=== PATIENT | male | born 1950 | race Caucasian/White ===

== ENCOUNTER → 2016-12-19 | Outpatient (CLI) | payer MEDICARE ==
[2016-12-19 08:08] LABS: ABSOLUTE BASOPHILS # (AUTO) 0.1 10^3/uL (0.0-0.2); ABSOLUTE EOSINOPHILS # (AUTO) 0.3 10^3/uL (0.0-0.6); ABSOLUTE LYMPHOCYTES (AUTO) 2.5 10^3/uL (0.5-4.7); ABSOLUTE MONOCYTES (AUTO) 0.6 10^3/uL (0.1-1.4); BASOPHILS % (AUTO) 0.8 % (0-2); EOSINOPHILS % (AUTO) 4.5 % (0-6); HEMOGLOBIN 11.4 g/dL (13.5-17.0); HGB HCT DIFFERENCE 0.2; LYMPHOCYTES % (AUTO) 32.8 % (13-45); MEAN CORPUSCULAR HEMOGLOBIN 31.1 pg (27.0-33.4); MEAN CORPUSCULAR HGB CONC 33.4 g/dL (32.0-36.0); MEAN CORPUSCULAR VOLUME 93 fl (80-97); MONOCYTES % (AUTO) 8.1 % (3-13); RED BLOOD COUNT 3.65 10^6/uL (4.35-5.55); SEGMENTED NEUTROPHILS % (AUTO) 53.8 % (42-78); WHITE BLOOD COUNT 7.5 10^3/uL (4.0-10.5)
[2016-12-19 08:31] LABS: ALBUMIN 3.8 g/dL (3.5-5.0); ANION GAP 12 (5-19); BLOOD UREA NITROGEN 85 mg/dL (7-20); CALCIUM 9.5 mg/dL (8.4-10.2); CARBON DIOXIDE 21 mmol/L (22-30); CHLORIDE 103 mmol/L (98-107); GLUCOSE 243 mg/dL (75-110); PHOSPHORUS 5.6 mg/dL (2.5-4.5); SODIUM 136.2 mmol/L (137-145)
[2016-12-19 09:18] LABS: POTASSIUM 6.2 mmol/L (3.6-5.0)
[2016-12-20 07:19] LABS: VITAMIN D 25-HYDROXY 31.1 ng/mL (30.0-100.0)
[2016-12-20 11:40] LABS: CREATININE URINE 38.7 mg/dL (Not Estab.)
== END ==
LOC: OD 07:12
PROVIDERS: ATTEND Internal Medicine Nephrology
DX: N18.4 Chronic kidney disease, stage 4 (severe) (principal); D63.1 Anemia in chronic kidney disease; N25.81 Secondary hyperparathyroidism of renal origin; E55.9 Vitamin D deficiency, unspecified; E11.9 Type 2 diabetes mellitus without complications
CPT/HCPCS: 36415; 80048; 82040; 82306; 82570; 83970; 84100; 84156; 85025

== ENCOUNTER → 2016-12-21 | Outpatient (CLI) | payer MEDICARE | LOC: OD 07:13 | PROVIDERS: ATTEND Internal Medicine Nephrology | DX: E78.5 Hyperlipidemia, unspecified (principal); N18.4 Chronic kidney disease, stage 4 (severe) | CPT/HCPCS: 36415; 84132 ==

== ENCOUNTER → 2017-01-19 | Outpatient (CLI) | payer MEDICARE ==
[2017-01-19 08:38] LABS: ANION GAP 14 (5-19); BLOOD UREA NITROGEN 39 mg/dL (7-20); CALCIUM 9.6 mg/dL (8.4-10.2); CARBON DIOXIDE 21 mmol/L (22-30); CHLORIDE 108 mmol/L (98-107); CREATININE RESULT 2.38 mg/dL (0.52-1.25); GLUCOSE 121 mg/dL (75-110); PHOSPHORUS 4.6 mg/dL (2.5-4.5); POTASSIUM 5.1 mmol/L (3.6-5.0); SODIUM 142.6 mmol/L (137-145)
== END ==
LOC: OD 07:04
PROVIDERS: ATTEND Internal Medicine Nephrology
DX: N18.4 Chronic kidney disease, stage 4 (severe) (principal); E83.39 Other disorders of phosphorus metabolism
CPT/HCPCS: 36415; 80048; 84100

== ENCOUNTER → 2017-04-26 | Outpatient (CLI) | payer MEDICARE ==
[2017-04-26 09:46] LABS: ANION GAP 10 (5-19); BLOOD UREA NITROGEN 75 mg/dL (7-20); CALCIUM 9.3 mg/dL (8.4-10.2); CARBON DIOXIDE 19 mmol/L (22-30); CHLORIDE 112 mmol/L (98-107); CREATININE RESULT 2.87 mg/dL (0.52-1.25); GLUCOSE 152 mg/dL (75-110); PHOSPHORUS 5.3 mg/dL (2.5-4.5); POTASSIUM 5.1 mmol/L (3.6-5.0)
[2017-04-26 09:59] LABS: URINE CREATININE 36.8 mg/dL (22-328)
[2017-04-26 10:05] LABS: URINE PROTEIN 331.5 mg/dL (<12)
== END ==
LOC: OD 07:41
PROVIDERS: ATTEND Internal Medicine Nephrology
DX: N18.4 Chronic kidney disease, stage 4 (severe) (principal); R80.1 Persistent proteinuria, unspecified; E83.39 Other disorders of phosphorus metabolism
CPT/HCPCS: 36415; 80048; 82570; 84100; 84156

== ENCOUNTER → 2017-06-29 | Outpatient (CLI) | payer MEDICARE ==
[2017-06-29 08:23] LABS: ABSOLUTE BASOPHILS # (AUTO) 0.1 10^3/uL (0.0-0.2); ABSOLUTE EOSINOPHILS # (AUTO) 0.3 10^3/uL (0.0-0.6); ABSOLUTE LYMPHOCYTES (AUTO) 2.2 10^3/uL (0.5-4.7); ABSOLUTE MONOCYTES (AUTO) 0.6 10^3/uL (0.1-1.4); ABSOLUTE NEUT (AUTO) 4.1 10^3/uL (1.7-8.2); BASOPHILS % (AUTO) 0.8 % (0-2); EOSINOPHILS % (AUTO) 4.3 % (0-6); HEMATOCRIT 32.7 % (37.9-51.0); HEMOGLOBIN 10.6 g/dL (13.5-17.0); HGB HCT DIFFERENCE -0.9; LYMPHOCYTES % (AUTO) 30.5 % (13-45); MEAN CORPUSCULAR HEMOGLOBIN 30.4 pg (27.0-33.4); MEAN CORPUSCULAR HGB CONC 32.4 g/dL (32.0-36.0); MEAN CORPUSCULAR VOLUME 94 fl (80-97); MONOCYTES % (AUTO) 8.4 % (3-13); RED BLOOD COUNT 3.49 10^6/uL (4.35-5.55); RED CELL DISTRIBUTION WIDTH 14.1 % (11.5-14.0); WHITE BLOOD COUNT 7.2 10^3/uL (4.0-10.5)
[2017-06-29 08:28] LABS: APPEARANCE,URINE CLEAR; BILIRUBIN,URINE NEGATIVE (NEGATIVE); GLUCOSE, URINE 150 mg/dL (NEGATIVE); KETONES,URINE NEGATIVE (NEGATIVE); LEUKOCYTE ESTERASE,URINE NEGATIVE (NEGATIVE); NITRITE,URINE NEGATIVE (NEGATIVE); PROTEIN,URINE >=500 mg/dL (NEGATIVE); URINE SPECIFIC GRAVITY 1.011; UROBILINOGEN,URINE NEGATIVE mg/dL (<2.0)
[2017-06-29 08:51] LABS: ALBUMIN 3.7 g/dL (3.5-5.0); ANION GAP 12 (5-19); BLOOD UREA NITROGEN 64 mg/dL (7-20); CALCIUM 9.7 mg/dL (8.4-10.2); CARBON DIOXIDE 21 mmol/L (22-30); CHLORIDE 111 mmol/L (98-107); CREATININE RESULT 2.75 mg/dL (0.52-1.25); GLUCOSE 125 mg/dL (75-110); PHOSPHORUS 5.3 mg/dL (2.5-4.5); SODIUM 143.9 mmol/L (137-145)
[2017-06-29 09:29] LABS: URINE PROTEIN 757.1 mg/dL (<12)
[2017-06-30 07:09] LABS: VITAMIN D 25-HYDROXY 28.2 ng/mL (30.0-100.0)
== END ==
LOC: OD 07:15
PROVIDERS: ATTEND Internal Medicine Nephrology
DX: N18.4 Chronic kidney disease, stage 4 (severe) (principal); E11.21 Type 2 diabetes mellitus with diabetic nephropathy; E83.39 Other disorders of phosphorus metabolism
CPT/HCPCS: 36415; 80048; 81001; 82040; 82306; 82570; 83970; 84100; 84156; 85025

== ENCOUNTER 2017-09-26 10:17 | Emergency (ER) | payer OTHER, MEDICARE ==
[2017-09-26] MEDS ORDERED: DIPH/PERTUSS(ACELL)/TETANUS VAC/PF 0.5 ML SYR (>=10YO) IM ONE (11:34)
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
[2017-09-26 12:12] LABS: ABSOLUTE BASOPHILS # (AUTO) 0.1 10^3/uL (0.0-0.2); ABSOLUTE EOSINOPHILS # (AUTO) 0.4 10^3/uL (0.0-0.6); ABSOLUTE LYMPHOCYTES (AUTO) 2.3 10^3/uL (0.5-4.7); ABSOLUTE MONOCYTES (AUTO) 0.8 10^3/uL (0.1-1.4); BASOPHILS % (AUTO) 0.9 % (0-2); EOSINOPHILS % (AUTO) 3.3 % (0-6); HEMATOCRIT 34.2 % (37.9-51.0); HEMOGLOBIN 11.5 g/dL (13.5-17.0); HGB HCT DIFFERENCE 0.3; LYMPHOCYTES % (AUTO) 20.1 % (13-45); MEAN CORPUSCULAR HEMOGLOBIN 30.8 pg (27.0-33.4); MEAN CORPUSCULAR HGB CONC 33.6 g/dL (32.0-36.0); MEAN CORPUSCULAR VOLUME 92 fl (80-97); MONOCYTES % (AUTO) 7.2 % (3-13); RED BLOOD COUNT 3.73 10^6/uL (4.35-5.55); SEGMENTED NEUTROPHILS % (AUTO) 68.5 % (42-78); WHITE BLOOD COUNT 11.7 10^3/uL (4.0-10.5)
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
[2017-09-26 12:36] LABS: ALANINE AMINOTRANSFERASE 71 U/L (21-72); ALBUMIN 4.3 g/dL (3.5-5.0); ALKALINE PHOSPHATASE 109 U/L (38-126); ANION GAP 13 (5-19); ASPARTATE AMINO TRANSFERASE 44 U/L (17-59); BILIRUBIN,DIRECT 0.4 mg/dL (0.0-0.4); BILIRUBIN,TOTAL 0.5 mg/dL (0.2-1.3); BLOOD UREA NITROGEN 58 mg/dL (7-20); CALCIUM 9.5 mg/dL (8.4-10.2); CARBON DIOXIDE 22 mmol/L (22-30); CHLORIDE 109 mmol/L (98-107); CREATININE RESULT 3.18 mg/dL (0.52-1.25); GLUCOSE 103 mg/dL (75-110); POTASSIUM 4.7 mmol/L (3.6-5.0); SODIUM 143.9 mmol/L (137-145); TOTAL PROTEIN 7.7 g/dL (6.3-8.2)
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
[2017-09-26 14:50] VITALS: BP 152/86
== END 2017-09-26 14:51 | disposition home or self-care (01) ==
LOC: ER 10:17
DX: S16.1XXA Strain of muscle, fascia and tendon at neck level, initial encounter (principal); S80.11XA Contusion of right lower leg, initial encounter; M54.2 Cervicalgia; M79.604 Pain in right leg; V49.40XA Driver injured in collision with unspecified motor vehicles in traffic accident, initial encounter; I10 Essential (primary) hypertension; E11.9 Type 2 diabetes mellitus without complications; N28.9 Disorder of kidney and ureter, unspecified
CPT/HCPCS: 36415; 70450; 72125; 80053; 85025; 90471; 90715; 99284

== ENCOUNTER 2017-09-28 12:50 | Emergency (ER) | payer OTHER, MEDICARE ==
[2017-09-28 12:57] VITALS: BP 170/71
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
[2017-09-28] MEDS ORDERED: ACETAMINOPHEN 325 MG TABLET PO ONE (13:49)
[2017-09-28] MEDS ORDERED: CYCLOBENZAPRINE HCL 10 MG TABLET PO ONE (13:49)
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
== END 2017-09-28 15:19 | disposition home or self-care (01) ==
LOC: ER 12:50
DX: R68.84 Jaw pain (principal); R07.89 Other chest pain; V87.7XXA Person injured in collision between other specified motor vehicles (traffic), initial encounter
CPT/HCPCS: 70110; 71020; 99284

== ENCOUNTER → 2017-11-02 | Outpatient (CLI) | payer MEDICARE ==
[2017-11-02 09:22] LABS: ABSOLUTE BASOPHILS # (AUTO) 0.1 10^3/uL (0.0-0.2); ABSOLUTE EOSINOPHILS # (AUTO) 0.4 10^3/uL (0.0-0.6); ABSOLUTE LYMPHOCYTES (AUTO) 2.3 10^3/uL (0.5-4.7); ABSOLUTE MONOCYTES (AUTO) 0.8 10^3/uL (0.1-1.4); ABSOLUTE NEUT (AUTO) 4.8 10^3/uL (1.7-8.2); BASOPHILS % (AUTO) 1.2 % (0-2); EOSINOPHILS % (AUTO) 4.6 % (0-6); HEMATOCRIT 31.7 % (37.9-51.0); HEMOGLOBIN 10.6 g/dL (13.5-17.0); LYMPHOCYTES % (AUTO) 27.2 % (13-45); MEAN CORPUSCULAR HEMOGLOBIN 30.3 pg (27.0-33.4); MEAN CORPUSCULAR HGB CONC 33.4 g/dL (32.0-36.0); MEAN CORPUSCULAR VOLUME 91 fl (80-97); MONOCYTES % (AUTO) 9.4 % (3-13); PLATELET COUNT 261 10^3/uL (150-450); RED BLOOD COUNT 3.49 10^6/uL (4.35-5.55); RED CELL DISTRIBUTION WIDTH 14.1 % (11.5-14.0); SEGMENTED NEUTROPHILS % (AUTO) 57.6 % (42-78); TOTAL CELLS COUNTED % (AUTO) 100 %; WHITE BLOOD COUNT 8.3 10^3/uL (4.0-10.5)
[2017-11-02 09:40] LABS: ANION GAP 12 (5-19); BLOOD UREA NITROGEN 63 mg/dL (7-20); CALCIUM 9.4 mg/dL (8.4-10.2); CARBON DIOXIDE 21 mmol/L (22-30); CHLORIDE 107 mmol/L (98-107); GLUCOSE 207 mg/dL (75-110); PHOSPHORUS 7.5 mg/dL (2.5-4.5); POTASSIUM 4.9 mmol/L (3.6-5.0); SODIUM 140.2 mmol/L (137-145)
[2017-11-02 10:11] LABS: URINE CREATININE 64.4 mg/dL (22-328)
[2017-11-02 10:23] LABS: UR PRO/CREAT RATIO RESULT 8.1 mg/mg (0.0-0.2); URINE PROTEIN 522.6 mg/dL (<12)
== END ==
LOC: OD 08:43
PROVIDERS: ATTEND Internal Medicine Nephrology
DX: E11.21 Type 2 diabetes mellitus with diabetic nephropathy (principal); N18.4 Chronic kidney disease, stage 4 (severe); N25.81 Secondary hyperparathyroidism of renal origin
CPT/HCPCS: 36415; 80048; 82306; 82570; 83970; 84100; 84156; 85025

== ENCOUNTER → 2018-02-01 | Outpatient (CLI) | payer MEDICARE ==
[2018-02-01 08:21] LABS: ABSOLUTE BASOPHILS # (AUTO) 0.1 10^3/uL (0.0-0.2); ABSOLUTE EOSINOPHILS # (AUTO) 0.3 10^3/uL (0.0-0.6); ABSOLUTE LYMPHOCYTES (AUTO) 2.6 10^3/uL (0.5-4.7); ABSOLUTE MONOCYTES (AUTO) 0.6 10^3/uL (0.1-1.4); ABSOLUTE NEUT (AUTO) 4.7 10^3/uL (1.7-8.2); EOSINOPHILS % (AUTO) 3.6 % (0-6); LYMPHOCYTES % (AUTO) 30.9 % (13-45); MEAN CORPUSCULAR HEMOGLOBIN 30.3 pg (27.0-33.4); MEAN CORPUSCULAR HGB CONC 33.1 g/dL (32.0-36.0); MEAN CORPUSCULAR VOLUME 91 fl (80-97); MONOCYTES % (AUTO) 7.5 % (3-13); PLATELET COUNT 279 10^3/uL (150-450); RED BLOOD COUNT 3.62 10^6/uL (4.35-5.55); TOTAL CELLS COUNTED % (AUTO) 100 %; WHITE BLOOD COUNT 8.3 10^3/uL (4.0-10.5)
[2018-02-01 08:40] LABS: ALBUMIN 4.5 g/dL (3.5-5.0); ANION GAP 15 (5-19); BLOOD UREA NITROGEN 85 mg/dL (7-20); CALCIUM 10.5 mg/dL (8.4-10.2); CARBON DIOXIDE 17 mmol/L (22-30); CHLORIDE 115 mmol/L (98-107); GLUCOSE 153 mg/dL (75-110); IRON(TIBC) 84.9 ug/dL (49-181); PHOSPHORUS 5.6 mg/dL (2.5-4.5); POTASSIUM 5.6 mmol/L (3.6-5.0); SODIUM 146.7 mmol/L (137-145)
[2018-02-01 09:28] LABS: APPEARANCE,URINE CLEAR; BILIRUBIN,URINE NEGATIVE (NEGATIVE); COLOR,URINE STRAW; GLUCOSE, URINE 150 mg/dL (NEGATIVE); KETONES,URINE NEGATIVE (NEGATIVE); LEUKOCYTE ESTERASE,URINE NEGATIVE (NEGATIVE); NITRITE,URINE NEGATIVE (NEGATIVE); PROTEIN,URINE >=500 mg/dL (NEGATIVE); URINE SPECIFIC GRAVITY 1.013; UROBILINOGEN,URINE NEGATIVE mg/dL (<2.0)
[2018-02-01 09:42] LABS: URINE CREATININE 60.5 mg/dL (22-328)
[2018-02-01 09:48] LABS: UR PRO/CREAT RATIO RESULT 4.9 mg/mg (0.0-0.2); URINE PROTEIN 297.1 mg/dL (<12)
== END ==
LOC: OD 07:46
PROVIDERS: ATTEND Internal Medicine Nephrology
DX: N18.4 Chronic kidney disease, stage 4 (severe) (principal); E11.21 Type 2 diabetes mellitus with diabetic nephropathy; N25.81 Secondary hyperparathyroidism of renal origin; E55.9 Vitamin D deficiency, unspecified
CPT/HCPCS: 36415; 80048; 81001; 82040; 82306; 82570; 82728; 83540; 83550; 83970; 84100; 84156; 85025

== ENCOUNTER → 2018-02-05 | Outpatient (CLI) | payer MEDICARE | LOC: OD 07:19 | PROVIDERS: ATTEND Internal Medicine Nephrology | DX: E87.5 Hyperkalemia (principal) | CPT/HCPCS: 36415; 84132 ==

== ENCOUNTER 2018-05-01 00:18 | Emergency (ER) | payer MEDICARE ==
[2018-05-01 01:27] LABS: HEMATOCRIT 28.9 % (37.9-51.0); HEMOGLOBIN 9.8 g/dL (13.5-17.0); MEAN CORPUSCULAR HEMOGLOBIN 30.8 pg (27.0-33.4); MEAN CORPUSCULAR VOLUME 91 fl (80-97); PLATELET COUNT 280 10^3/uL (150-450); RED BLOOD COUNT 3.19 10^6/uL (4.35-5.55); RED CELL DISTRIBUTION WIDTH 14.1 % (11.5-14.0); WHITE BLOOD COUNT 9.8 10^3/uL (4.0-10.5)
[2018-05-01 01:59] LABS: ABSOLUTE LYMPHOCYTES# (MANUAL) 0.8 10^3/uL (0.5-4.7); ABSOLUTE MONOCYTES # (MANUAL) 0.5 10^3/uL (0.1-1.4); ABSOLUTE NEUTROPHILS# (MANUAL) 8.4 10^3/uL (1.7-8.2); BAND NEUTROPHILS % (MANUAL) 2 % (3-5); BASOPHILS % (MANUAL) 0 % (0-2); EOSINOPHILS % (MANUAL) 1 % (0-6); HYPOCHROMASIA 1+; LYMPHOCYTES % (MANUAL) 8 % (13-45); MONOCYTES % (MANUAL) 5 % (3-13); SEGMENTED NEUTROPHILS % (MAN) 84 % (42-78); TOTAL CELLS COUNTED 100; TOXIC GRANULATION 1+; TOXIC VACUOLATION PRESENT
[2018-05-01 02:00] LABS: PLATELET COMMENT ADEQUATE
[2018-05-01 02:01] LABS: ALANINE AMINOTRANSFERASE 181 U/L (21-72); ALBUMIN 3.1 g/dL (3.5-5.0); ALKALINE PHOSPHATASE 183 U/L (38-126); ASPARTATE AMINO TRANSFERASE 138 U/L (17-59); BILIRUBIN,DIRECT 0.4 mg/dL (0.0-0.4); BILIRUBIN,TOTAL 0.4 mg/dL (0.2-1.3); BLOOD UREA NITROGEN 116 mg/dL (7-20); CALCIUM 8.7 mg/dL (8.4-10.2); GLUCOSE 278 mg/dL (75-110); POTASSIUM 4.1 mmol/L (3.6-5.0); TOTAL PROTEIN 6.2 g/dL (6.3-8.2)
[2018-05-01 02:07] LABS: CARBON DIOXIDE 13 mmol/L (22-30); CHLORIDE 109 mmol/L (98-107); SODIUM 143.2 mmol/L (137-145)
[2018-05-01 02:18] LABS: ANION GAP 21 (5-19)
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
--- NOTE | 2018-05-01 03:20 | RADIOLOGY REPORT (SQ) ---
EXAM DESCRIPTION: XR CHEST 1 VIEW COMPLETED DATE/TME: 05/01/2018 00:48 CLINICAL HISTORY: shortness of breath COMPARISON: 09/28/2017 FINDINGS: Single frontal view of the chest. The cardiomediastinal silhouette has normal size and contour. No consolidation, pneumothorax, or pleural effusion. Right reverse shoulder arthroplasty. Leads overlie the chest. Elevation the right hemidiaphragm. Right-sided skin fold. Upper abdominal soft tissues are unremarkable. IMPRESSION: 1. No acute pulmonary process identified.
[2018-05-01 04:04] LABS: ARTERIAL BLOOD BASE EXCESS -8.3 mmol/L; ARTERIAL BLOOD HCO3 15.3 mmol/L (20-26); ARTERIAL BLOOD O2 SATURATION 97.8 % (94-98); ARTERIAL BLOOD PCO2 26.5 mmHg (35-45); ARTERIAL BLOOD PH 7.38 (7.35-7.45); ARTERIAL BLOOD PO2 104.6 mmHg (80-100); ARTERIAL BLOOD TOTAL CO2 16.1 mmol/L (23-27)
[2018-05-01 04:10] LABS: ARTERIAL BLOOD FIO2 RA
[2018-05-01 05:26] VITALS: BP 154/76
--- NOTE | 2018-05-01 10:01 | EKG REPORT ---
SEVERITY:- ABNORMAL ECG - SINUS RHYTHM PROBABLE LEFT ATRIAL ABNORMALITY LEFT VENTRICULAR HYPERTROPHY : Confirmed by: Tanya Del Toro MD 01-May-2018 09:59:20
== END 2018-05-01 05:26 | disposition left against medical advice (07) ==
LOC: ER 00:18
DX: N19 Unspecified kidney failure (principal); I10 Essential (primary) hypertension; E11.9 Type 2 diabetes mellitus without complications; E87.2 Acidosis; E87.3 Alkalosis; J40 Bronchitis, not specified as acute or chronic; R06.02 Shortness of breath; R05 Cough; Z53.29 Procedure and treatment not carried out because of patient's decision for other reasons
CPT/HCPCS: 36415; 71045; 80053; 82803; 83880; 84484; 85025; 93005; 93010; 99285

== ENCOUNTER 2018-05-06 15:29 | Emergency (ER) | payer MEDICARE ==
--- NOTE | 2018-05-06 16:26 | ER Document Report ---
ED Medical Screen (RME) - General Chief Complaint: Abnormal Lab Results Stated Complaint: FLANK PAIN Time Seen by Provider: 05/06/18 16:21 Mode of Arrival: Ambulatory Information source: Patient Notes: 68-year-old male with hypertension, hyperlipidemia, renal disease presents with complaint of "I just feel horrible. Patient states that he has had headache, nausea for approximately 1 week. He was seen in the emergency department recently where he was fine to have a creatinine great then 5. At that time patient left AGAINST MEDICAL ADVICE. He does follow with Dr. Maryann Ramirez executive vice president and chief financial officer. Patient currently denying chest pain, shortness of breath, abdominal pain. Patient's is currently in trauma 1 after a cardiac arrest. I have greeted and performed a rapid initial assessment of this patient. A comprehensive ED assessment and evaluation of the patient including analysis of labs and imaging ( if obtained) and completion of medical decision making will be conducted by an additional ED provider. PHYSICAL EXAMINATION: GENERAL: Well-appearing, well-nourished and in no acute distress. HEAD: Atraumatic, normocephalic. EYES: Pupils equal round extraocular movements intact, conjunctiva are normal. ENT: Nares patent NECK: Normal range of motion LUNGS: No respiratory distress Musculoskeletal: Normal range of motion NEUROLOGICAL: Normal speech, normal gait. PSYCH: Normal mood, normal affect. SKIN: Warm, Dry, normal turgor, no rashes or lesions noted. TRAVEL OUTSIDE OF THE [place] IN LAST 30 DAYS: No - Related Data Allergies/Adverse Reactions: No Known Allergies Allergy (Verified 05/06/18 16:18) Past Medical History - Social History Chew tobacco use (# tins/day): No Frequency of alcohol use: None Drug Abuse: None - Past Medical History Cardiac Medical History: Reports: Hx Hypercholesterolemia, Hx Hypertension Denies: Hx Coronary Artery Disease, Hx Heart Attack Pulmonary Medical History: Denies: Hx Asthma, Hx Bronchitis, Hx COPD, Hx Pneumonia Neurological Medical History: Denies: Hx Cerebrovascular Accident, Hx Seizures Endocrine Medical History: Reports: Hx Diabetes Mellitus Type 2 Renal/ Medical History: Denies: Hx Peritoneal Dialysis Musculoskeltal Medical History: Reports Hx Arthritis Past Surgical History: Reports: Hx Orthopedic Surgery - right shoulder - Immunizations Hx Diphtheria, Pertussis, Tetanus Vaccination: No Physical Exam - Vital signs Vitals: Temp Pulse Resp BP Pulse Ox 98.9 F 74 16 152/75 H 97 05/06/18 15:49 05/06/18 15:49 05/06/18 15:49 05/06/18 15:49 05/06/18 15:49 Course - Vital Signs Vital signs: Temp Pulse Resp BP Pulse Ox 98.9 F 74 16 152/75 H 97 05/06/18 15:49 05/06/18 15:49 05/06/18 15:49 05/06/18 15:49 05/06/18 15:49 Doctor's Discharge - Discharge Referrals: JOSE HALL MD [Primary Care Provider] - Follow up as needed
--- NOTE | 2018-05-06 17:04 | RADIOLOGY REPORT (SQ) ---
EXAM DESCRIPTION: CHEST 2 VIEWS COMPLETED DATE/TIME: 05/06/2018 4:48 pm REASON FOR STUDY: copd COMPARISON: 09/28/2017 EXAM PARAMETERS: NUMBER OF VIEWS: two views TECHNIQUE: Digital Frontal and Lateral radiographic views of the chest acquired. RADIATION DOSE: NA LIMITATIONS: none FINDINGS: LUNGS AND PLEURA: No opacities, masses or pneumothorax. No pleural effusion. MEDIASTINUM AND HILAR STRUCTURES: No masses or contour abnormalities. HEART AND VASCULAR STRUCTURES: Heart normal size. No evidence for failure. BONES: Right shoulder prosthesis. HARDWARE: None in the chest. OTHER: No other significant finding. IMPRESSION: NO ACUTE RADIOGRAPHIC FINDING IN THE CHEST. TECHNICAL DOCUMENTATION: JOB ID: [id number] [employer]- All Rights Reserved Reading location - IP/workstation name: [email or web address]
[2018-05-06 17:08] LABS: APPEARANCE,URINE CLEAR; BILIRUBIN,URINE NEGATIVE (NEGATIVE); COLOR,URINE YELLOW; GLUCOSE, URINE 150 mg/dL (NEGATIVE); KETONES,URINE NEGATIVE (NEGATIVE); LEUKOCYTE ESTERASE,URINE NEGATIVE (NEGATIVE); NITRITE,URINE NEGATIVE (NEGATIVE); PROTEIN,URINE >=500 mg/dL (NEGATIVE); URINE SPECIFIC GRAVITY 1.011; UROBILINOGEN,URINE NEGATIVE mg/dL (<2.0)
[2018-05-06 18:09] LABS: ABSOLUTE BASOPHILS # (AUTO) 0.1 10^3/uL (0.0-0.2); ABSOLUTE EOSINOPHILS # (AUTO) 0.2 10^3/uL (0.0-0.6); ABSOLUTE LYMPHOCYTES (AUTO) 3.5 10^3/uL (0.5-4.7); ABSOLUTE MONOCYTES (AUTO) 0.9 10^3/uL (0.1-1.4); ABSOLUTE NEUT (AUTO) 10.7 10^3/uL (1.7-8.2); BASOPHILS % (AUTO) 0.5 % (0-2); EOSINOPHILS % (AUTO) 1.5 % (0-6); HEMATOCRIT 31.3 % (37.9-51.0); HEMOGLOBIN 10.6 g/dL (13.5-17.0); LYMPHOCYTES % (AUTO) 22.7 % (13-45); MEAN CORPUSCULAR HEMOGLOBIN 30.4 pg (27.0-33.4); MEAN CORPUSCULAR HGB CONC 33.8 g/dL (32.0-36.0); MEAN CORPUSCULAR VOLUME 90 fl (80-97); PLATELET COUNT 510 10^3/uL (150-450); RED BLOOD COUNT 3.48 10^6/uL (4.35-5.55); SEGMENTED NEUTROPHILS % (AUTO) 69.3 % (42-78); TOTAL CELLS COUNTED % (AUTO) 100 %; WHITE BLOOD COUNT 15.5 10^3/uL (4.0-10.5)
[2018-05-06 18:22] LABS: ALANINE AMINOTRANSFERASE 135 U/L (21-72); ALBUMIN 3.7 g/dL (3.5-5.0); ALKALINE PHOSPHATASE 141 U/L (38-126); ANION GAP 18 (5-19); ASPARTATE AMINO TRANSFERASE 80 U/L (17-59); BILIRUBIN,DIRECT 0.5 mg/dL (0.0-0.4); BILIRUBIN,TOTAL 0.6 mg/dL (0.2-1.3); BLOOD UREA NITROGEN 88 mg/dL (7-20); CALCIUM 8.9 mg/dL (8.4-10.2); CARBON DIOXIDE 19 mmol/L (22-30); CHLORIDE 110 mmol/L (98-107); GLUCOSE 144 mg/dL (75-110); LIPASE 152.6 U/L (23-300); POTASSIUM 4.6 mmol/L (3.6-5.0); TOTAL PROTEIN 6.8 g/dL (6.3-8.2)
[2018-05-06 18:34] LABS: TROPONIN I 0.018 ng/mL
--- NOTE | 2018-05-06 19:17 | ER Document Report ---
ED General - General Chief Complaint: Abnormal Lab Results Stated Complaint: FLANK PAIN Time Seen by Provider: 05/06/18 16:21 Mode of Arrival: Ambulatory Notes: Patient is a 68-year-old male with a past medical history of non-insulin- dependent diabetes, hypertension, chronic kidney disease who presents after apparently receiving a call back from the emergency department regarding recently leaving AGAINST MEDICAL ADVICE with deteriorating renal function. The patient states that he feels "like crap". He states that this however is not new or different over the last several months. He states in general he feels quite fatigued and has little energy. Nothing seems to improve or worsen his symptoms. He has been taking all medications as directed. He states that he has been drinking plenty of fluids. He follows with a sports equipment repairer regarding his chronic kidney dysfunction has not seen them in at least 3 months. Nothing is otherwise new or different about his symptoms that prompted a return visit to the emergency department today TRAVEL OUTSIDE OF THE [place] IN LAST 30 DAYS: No - Related Data Allergies/Adverse Reactions: No Known Allergies Allergy (Verified 05/06/18 16:18) Past Medical History - General Information source: Patient - Social History Smoking Status: Never Smoker Chew tobacco use (# tins/day): No Frequency of alcohol use: None Drug Abuse: None Lives with: Spouse/Significant other Family History: Reviewed & Not Pertinent Patient has suicidal ideation: No Patient has homicidal ideation: No - Past Medical History Cardiac Medical History: Reports: Hx Hypercholesterolemia, Hx Hypertension Denies: Hx Coronary Artery Disease, Hx Heart Attack Pulmonary Medical History: Denies: Hx Asthma, Hx Bronchitis, Hx COPD, Hx Pneumonia Neurological Medical History: Denies: Hx Cerebrovascular Accident, Hx Seizures Endocrine Medical History: Reports: Hx Diabetes Mellitus Type 2 Renal/ Medical History: Denies: Hx Peritoneal Dialysis Musculoskeletal Medical History: Reports Hx Arthritis Past Surgical History: Reports: Hx Orthopedic Surgery - right shoulder - Immunizations Hx Diphtheria, Pertussis, Tetanus Vaccination: No Hx Pneumococcal Vaccination: 03/23/13 Review of Systems - Review of Systems Notes: Constitutional: Negative for fever. Positive for general fatigue HENT: Negative for sore throat. Eyes: Negative for visual changes. Cardiovascular: Negative for chest pain. Respiratory: Negative for shortness of breath. Gastrointestinal: Negative for abdominal pain, vomiting or diarrhea. Genitourinary: Negative for dysuria. Musculoskeletal: Negative for back pain. Skin: Negative for rash. Neurological: Negative for headaches, weakness or numbness. 10 point ROS negative except as marked above and in HPI. Physical Exam - Vital signs Vitals: Temp Pulse Resp BP Pulse Ox 98.9 F 74 16 152/75 H 97 05/06/18 15:49 05/06/18 15:49 05/06/18 15:49 05/06/18 15:49 05/06/18 15:49 Interpretation: Hypertensive Notes: PHYSICAL EXAMINATION: GENERAL: Somewhat chronically ill and emaciated in appearance but no acute distress HEAD: Atraumatic, normocephalic. EYES: Pupils equal round and reactive to light, extraocular movements intact, sclera anicteric, conjunctiva are normal. ENT: nares patent, oropharynx clear without exudates. Moist mucous membranes. NECK: Normal range of motion, supple without lymphadenopathy LUNGS: Breath sounds clear to auscultation bilaterally and equal. No wheezes rales or rhonchi. HEART: Regular rate and rhythm without murmurs ABDOMEN: Soft, nontender, normoactive bowel sounds. No guarding, no rebound. No masses appreciated. EXTREMITIES: Normal range of motion, no pitting or edema. No cyanosis. NEUROLOGICAL: No focal neurological deficits. Moves all extremities spontaneously and on command. PSYCH: Normal mood, normal affect. SKIN: Warm, Dry, normal turgor, no rashes or lesions noted. Course - Re-evaluation Re-evalutation: 05/06/18 19:12 Patient presents with requests for repeat lab assessment is apparently summary from the emergency department contacted him and requested that he come back to the emergency department for recheck. The patient states that he feels quite fatigued but has felt the same way for at least the past 4-5 months. I have expand the patient that this is likely secondary to his chronic kidney dysfunction with associated uremia. He has had progressive worsening of his uremia and kidney function has progressively declined over the last 4 years although is notably better today versus 5 days ago. His physical exam is nonfocal. Vitals show mild hypertension but are otherwise unremarkable. No hyperkalemia. I discussed this case with his sports equipment repairer Dr. Hall who plans to see him in the office at their earliest ability. At this time will discharge with return precautions and follow-up recommendations. Verbal discharge instructions given a the bedside and opportunity for questions given. Medication warnings reviewed. Patient is in agreement with this plan and has verbalized understanding of return precautions and the need for primary care follow-up in the next 24-72 hours. - Vital Signs Vital signs: Temp Pulse Resp BP Pulse Ox 98.8 F 82 18 151/77 H 98 05/06/18 19:58 05/06/18 19:58 05/06/18 19:58 05/06/18 19:58 05/06/18 19:58 - Laboratory Result Diagrams: 05/06/18 17:37 05/06/18 17:37 Laboratory results interpreted by me: 05/06/18 05/06/18 05/06/18 16:35 17:37 17:37 WBC 15.5 H RBC 3.48 L Hgb 10.6 L Hct 31.3 L Plt Count 510 H Absolute Neutrophils 10.7 H Sodium 147.0 H Chloride 110 H Carbon Dioxide 19 L BUN 88 H Creatinine 4.50 H Est GFR ( Amer) 16 L Est GFR (Non-Af Amer) 13 L Glucose 144 H Direct Bilirubin 0.5 H AST 80 H ALT 135 H Alkaline Phosphatase 141 H NT-Pro-B Natriuret Pep Urine Protein >=500 H Urine Glucose (UA) 150 H Urine Blood SMALL H 05/06/18 17:37 WBC RBC Hgb Hct Plt Count Absolute Neutrophils Sodium Chloride Carbon Dioxide BUN Creatinine Est GFR ( Amer) Est GFR (Non-Af Amer) Glucose Direct Bilirubin AST ALT Alkaline Phosphatase NT-Pro-B Natriuret Pep 2350 H Urine Protein Urine Glucose (UA) Urine Blood - Diagnostic Test Radiology reviewed: Image reviewed, Reports reviewed Radiology results interpreted by me: 05/07/18 04:53 Chest x-ray: No acute infiltrate or pneumothorax Discharge - Discharge Clinical Impression: Uremia Chronic kidney disease Qualifiers: Chronic kidney disease stage: unspecified stage Qualified Code(s): N18.9 - Chronic kidney disease, unspecified Fatigue Qualifiers: Fatigue type: unspecified Qualified Code(s): R53.83 - Other fatigue Condition: Good Disposition: HOME, SELF-CARE Additional Instructions: Please wait for Dr. Hall's office to contact you before you go get labs. They will contact you and inform you when you need to get lab draws in case there are additional laboratories that need to be drawn beyond what was sent today. They are also planning to set up an appointment for you at the earliest available appointment. You are feeling fatigued due to progressive deterioration of your kidney function. Please return to the emergency department if you have shortness of breath, chest pain, fever greater than 100.4F vomiting, chest pain, or any other symptoms that are worrisome to you. Referrals: JOSE HALL MD [Primary Care Provider] - Follow up as needed
[2018-05-06 19:59] VITALS: BP 151/77
== END 2018-05-06 19:59 | disposition home or self-care (01) ==
LOC: ER 15:29
DX: I12.9 Hypertensive chronic kidney disease with stage 1 through stage 4 chronic kidney disease, or unspecified chronic kidney disease (principal); N18.9 Chronic kidney disease, unspecified; R53.83 Other fatigue; E11.9 Type 2 diabetes mellitus without complications
CPT/HCPCS: 36415; 71046; 80053; 81001; 83690; 83880; 84484; 85025; 99284

== ENCOUNTER → 2018-05-08 | Outpatient (CLI) | payer MEDICARE ==
[2018-05-08 08:25] LABS: ABSOLUTE BASOPHILS # (AUTO) 0.1 10^3/uL (0.0-0.2); ABSOLUTE EOSINOPHILS # (AUTO) 0.2 10^3/uL (0.0-0.6); ABSOLUTE MONOCYTES (AUTO) 0.6 10^3/uL (0.1-1.4); ABSOLUTE NEUT (AUTO) 9.5 10^3/uL (1.7-8.2); BASOPHILS % (AUTO) 0.7 % (0-2); EOSINOPHILS % (AUTO) 1.4 % (0-6); HEMATOCRIT 27.3 % (37.9-51.0); HEMOGLOBIN 9.2 g/dL (13.5-17.0); LYMPHOCYTES % (AUTO) 15.9 % (13-45); MEAN CORPUSCULAR HEMOGLOBIN 30.5 pg (27.0-33.4); MEAN CORPUSCULAR HGB CONC 33.6 g/dL (32.0-36.0); MEAN CORPUSCULAR VOLUME 91 fl (80-97); MONOCYTES % (AUTO) 4.5 % (3-13); PLATELET COUNT 494 10^3/uL (150-450); RED CELL DISTRIBUTION WIDTH 13.9 % (11.5-14.0); SEGMENTED NEUTROPHILS % (AUTO) 77.5 % (42-78); TOTAL CELLS COUNTED % (AUTO) 100 %; WHITE BLOOD COUNT 12.3 10^3/uL (4.0-10.5)
[2018-05-08 08:41] LABS: APPEARANCE,URINE CLEAR; BILIRUBIN,URINE NEGATIVE (NEGATIVE); COLOR,URINE YELLOW; GLUCOSE, URINE 150 mg/dL (NEGATIVE); KETONES,URINE NEGATIVE (NEGATIVE); LEUKOCYTE ESTERASE,URINE NEGATIVE (NEGATIVE); NITRITE,URINE NEGATIVE (NEGATIVE); PROTEIN,URINE >=500 mg/dL (NEGATIVE); URINE SPECIFIC GRAVITY 1.013; UROBILINOGEN,URINE NEGATIVE mg/dL (<2.0)
[2018-05-08 08:48] LABS: URINE CREATININE 99.6 mg/dL (22-328)
[2018-05-08 08:51] LABS: ANION GAP 18 (5-19); BLOOD UREA NITROGEN 84 mg/dL (7-20); CALCIUM 8.7 mg/dL (8.4-10.2); CARBON DIOXIDE 18 mmol/L (22-30); CHLORIDE 111 mmol/L (98-107); GLUCOSE 308 mg/dL (75-110); PHOSPHORUS 8.4 mg/dL (2.5-4.5); POTASSIUM 4.4 mmol/L (3.6-5.0); SODIUM 147.1 mmol/L (137-145)
[2018-05-08 09:03] LABS: UR PRO/CREAT RATIO RESULT 3.3 mg/mg (0.0-0.2); URINE PROTEIN 327.9 mg/dL (<12)
== END ==
LOC: OD 07:11
PROVIDERS: ATTEND Internal Medicine Nephrology
DX: N18.4 Chronic kidney disease, stage 4 (severe) (principal); E55.9 Vitamin D deficiency, unspecified
CPT/HCPCS: 36415; 80048; 81001; 82306; 82570; 84100; 84156; 85025

== ENCOUNTER 2018-05-09 14:07 | Emergency (ER) | payer MEDICARE ==
[2018-05-09] MEDS ORDERED: NORMAL SALINE 500 ML IV ONE (15:05)
[2018-05-09 15:23] LABS: ABSOLUTE BASOPHILS # (AUTO) 0.1 10^3/uL (0.0-0.2); ABSOLUTE EOSINOPHILS # (AUTO) 0.2 10^3/uL (0.0-0.6); ABSOLUTE LYMPHOCYTES (AUTO) 2.7 10^3/uL (0.5-4.7); ABSOLUTE MONOCYTES (AUTO) 0.7 10^3/uL (0.1-1.4); ABSOLUTE NEUT (AUTO) 6.6 10^3/uL (1.7-8.2); BASOPHILS % (AUTO) 0.7 % (0-2); EOSINOPHILS % (AUTO) 2.2 % (0-6); HEMATOCRIT 25.9 % (37.9-51.0); HEMOGLOBIN 8.9 g/dL (13.5-17.0); LYMPHOCYTES % (AUTO) 26.6 % (13-45); MEAN CORPUSCULAR HEMOGLOBIN 30.5 pg (27.0-33.4); MEAN CORPUSCULAR HGB CONC 34.3 g/dL (32.0-36.0); MEAN CORPUSCULAR VOLUME 89 fl (80-97); MONOCYTES % (AUTO) 6.4 % (3-13); PLATELET COUNT 456 10^3/uL (150-450); RED BLOOD COUNT 2.92 10^6/uL (4.35-5.55); RED CELL DISTRIBUTION WIDTH 13.7 % (11.5-14.0); SEGMENTED NEUTROPHILS % (AUTO) 64.1 % (42-78); TOTAL CELLS COUNTED % (AUTO) 100 %; WHITE BLOOD COUNT 10.3 10^3/uL (4.0-10.5)
[2018-05-09 15:24] LABS: ALANINE AMINOTRANSFERASE 118 U/L (21-72); ALBUMIN 3.3 g/dL (3.5-5.0); ALKALINE PHOSPHATASE 107 U/L (38-126); ANION GAP 17 (5-19); ASPARTATE AMINO TRANSFERASE 65 U/L (17-59); BILIRUBIN,DIRECT 0.2 mg/dL (0.0-0.4); BILIRUBIN,TOTAL 0.2 mg/dL (0.2-1.3); BLOOD UREA NITROGEN 81 mg/dL (7-20); CALCIUM 8.3 mg/dL (8.4-10.2); CARBON DIOXIDE 19 mmol/L (22-30); CHLORIDE 109 mmol/L (98-107); GLUCOSE 116 mg/dL (75-110); POTASSIUM 3.7 mmol/L (3.6-5.0); SODIUM 145.4 mmol/L (137-145)
[2018-05-09] MEDS ORDERED: PROCHLORPERAZINE EDISYLATE INJ 10 MG/2 ML VIAL IV ONE (15:45)
[2018-05-09 16:15] LABS: APPEARANCE,URINE CLEAR; BILIRUBIN,URINE NEGATIVE (NEGATIVE); COLOR,URINE STRAW; GLUCOSE, URINE 150 mg/dL (NEGATIVE); KETONES,URINE NEGATIVE (NEGATIVE); LEUKOCYTE ESTERASE,URINE NEGATIVE (NEGATIVE); NITRITE,URINE NEGATIVE (NEGATIVE); PROTEIN,URINE 100 mg/dL (NEGATIVE); URINE SPECIFIC GRAVITY 1.012; UROBILINOGEN,URINE NEGATIVE mg/dL (<2.0)
--- NOTE | 2018-05-09 16:28 | RADIOLOGY REPORT (SQ) ---
EXAM DESCRIPTION: ACUTE ABDOMEN SERIES portable COMPLETED DATE/TIME: 05/09/2018 4:02 pm REASON FOR STUDY: nv COMPARISON: None. NUMBER OF VIEWS: Three views. TECHNIQUE: Frontal chest, supine abdomen and upright/decubitus abdomen radiographic images acquired. LIMITATIONS: None. FINDINGS: CHEST: Lungs clear of infiltrates. FREE AIR: None. No abnormal gas collections. BOWEL GAS PATTERN: Nonobstructive bowel pattern. Some increased fecal material noted vertically righ t colon. Air-fluid level is noted in the epigastric region, possible gastric or hiatus hernia. Othe r etiology including free air could be a consideration. No free air identified beneath the hemidiaph ragms. Consider CT for greater detail as clinically indicated. CALCIFICATIONS: 14 mm right upper quadrant oval calcification, concerning for gallstone. Consider ul trasound correlation. HARDWARE: Right shoulder arthroplasty SOFT TISSUES: No gross mass or suggestion of organomegaly. BONES: Scoliosis and arthritic change lumbar spine. OTHER: Linear calcification projected below the symphysis pubis, likely scrotal. IMPRESSION: Nonobstructive bowel pattern. Increased fecal material noted 14 mm right upper quadrant oval calcification, possible gallstone. Consider ultrasound correlation. Air-fluid level in the epigastric region. Consider gastric and hiatus hernia among other etiologies. Note above. TECHNICAL DOCUMENTATION: JOB ID: [id number] [employer]- All Rights Reserved Reading location - IP/workstation name: [email or web address]
[2018-05-09 17:29] VITALS: BP 163/86
[2018-05-09] MEDS ORDERED: ONDANSETRON ODT 4 MG TAB (6 TAB/ER DISP) PO PRN (17:40)
--- NOTE | 2018-05-09 17:44 | ER Document Report ---
ED General - General Chief Complaint: Weakness Stated Complaint: WEAKNESS Time Seen by Provider: 05/09/18 14:21 TRAVEL OUTSIDE OF THE [place] IN LAST 30 DAYS: No - HPI Patient complains to provider of: Generalized weakness nausea vomiting Notes: Patient has multiple visits now for similar episodes. Patient has been followed by Dr. Hall outpatient nephrology patient has known renal failure with uremia according to previous notes Dr. Hall has been encouraging patient in urgent patient to start dialysis however patient has delayed. Patient states upon my evaluation recently lost his she is due to be tomorrow. Patient otherwise states started having nausea vomiting the day after eating chicken. Patient denies any fevers chills diarrhea. patient resting comfortably upon my evaluation - Related Data Allergies/Adverse Reactions: No Known Allergies Allergy (Verified 05/06/18 16:18) Past Medical History - Social History Smoking Status: Never Smoker Chew tobacco use (# tins/day): No Frequency of alcohol use: None Drug Abuse: None Family History: Reviewed & Not Pertinent Patient has suicidal ideation: No Patient has homicidal ideation: No - Past Medical History Cardiac Medical History: Reports: Hx Hypercholesterolemia, Hx Hypertension Denies: Hx Coronary Artery Disease, Hx Heart Attack Pulmonary Medical History: Denies: Hx Asthma, Hx Bronchitis, Hx COPD, Hx Pneumonia Neurological Medical History: Denies: Hx Cerebrovascular Accident, Hx Seizures Endocrine Medical History: Reports: Hx Diabetes Mellitus Type 2 Renal/ Medical History: Denies: Hx Peritoneal Dialysis Musculoskeletal Medical History: Reports Hx Arthritis Past Surgical History: Reports: Hx Orthopedic Surgery - right shoulder - Immunizations Hx Diphtheria, Pertussis, Tetanus Vaccination: No Hx Pneumococcal Vaccination: 03/23/13 Review of Systems - Review of Systems Constitutional: Weakness EENT: No symptoms reported Cardiovascular: No symptoms reported Respiratory: No symptoms reported Gastrointestinal: Nausea, Vomiting Genitourinary: No symptoms reported Male Genitourinary: No symptoms reported Musculoskeletal: No symptoms reported Skin: No symptoms reported Hematologic/Lymphatic: No symptoms reported Neurological/Psychological: No symptoms reported -: Yes All other systems reviewed and negative Physical Exam - Vital signs Vitals: Resp 21 H 05/09/18 14:15 Interpretation: Normal - General General appearance: Appears well, Alert - HEENT Head: Normocephalic, Atraumatic Eyes: Normal Pupils: PERRL - Respiratory Respiratory status: No respiratory distress Chest status: Nontender Breath sounds: Normal Chest palpation: Normal - Cardiovascular Rhythm: Regular Heart sounds: Normal auscultation Murmur: No - Abdominal Inspection: Normal Distension: No distension Bowel sounds: Normal Tenderness: Nontender. No: Tender, McBurney's point, Gray's sign, Guarding, Rebound Organomegaly: No organomegaly - Back Back: Normal, Nontender - Extremities General upper extremity: Normal inspection, Nontender, Normal color, Normal ROM , Normal temperature General lower extremity: Normal inspection, Nontender, Normal color, Normal ROM , Normal temperature, Normal weight bearing. No: Aguila's sign - Neurological Neuro grossly intact: Yes Cognition: Normal Orientation: AAOx4 Mikayla Coma Scale Eye Opening: Spontaneous Mikayla Coma Scale Verbal: Oriented Mikayla Coma Scale Motor: Obeys Commands Mikayla Coma Scale Total: 15 Speech: Normal Motor strength normal: LUE, RUE, LLE, RLE Sensory: Normal - Psychological Associated symptoms: Normal affect, Normal mood - Skin Skin Temperature: Warm Skin Moisture: Dry Skin Color: Normal Course - Re-evaluation Re-evalutation: 05/09/18 23:02 Patient laboratory studies did not show a critical changes in the patient's uremia renal status patient has a chronically low but bicarb and chronic anemia. Did perform an acute abdominal series today showing a possible gallstone. Patient does have elevation of his liver function test however these have decreased over the past few days. Patient's abdominal examination otherwise benign. Patient has a right upper quadrant epigastric tenderness. It asked patient if you have further like to evaluate his gallbladder because a gallstone however patient declines at this time. Patient's abdomen again soft nontender no signs of surgical pathology bowel obstruction or any other worrisome etiology at this time for the patient's nausea vomiting. Patient's nausea has improved medication given here in the ER. Patient's case discussed with Dr. Hall recommended that the patient be admitted if he continued to have symptoms however states that the patient has been offered admission multiple times and he has declined each time. Did broach the subject with the patient offering admission again however patient states that this time your to be discharged home patient states understanding of his condition states understanding that there has not been much change in his laboratory values were more likely the uremia underlying renal failure is causing a lot of symptoms. Patient states understanding and again request to be discharged home - Vital Signs Vital signs: Temp Pulse Resp BP Pulse Ox 98.7 F 14 163/86 H 99 05/09/18 14:43 05/09/18 17:11 05/09/18 17:11 05/09/18 17:11 - Laboratory Result Diagrams: 05/09/18 14:21 05/09/18 14:21 Laboratory results interpreted by me: 05/09/18 05/09/18 05/09/18 14:21 14:21 15:40 RBC 2.92 L Hgb 8.9 L Hct 25.9 L Plt Count 456 H Sodium 145.4 H Chloride 109 H Carbon Dioxide 19 L BUN 81 H Creatinine 4.20 H Est GFR ( Amer) 17 L Est GFR (Non-Af Amer) 14 L Glucose 116 H Calcium 8.3 L AST 65 H ALT 118 H Total Protein 6.0 L Albumin 3.3 L Urine Protein 100 H Urine Glucose (UA) 150 H Urine Blood SMALL H Discharge - Discharge Clinical Impression: Uremia, Possible gallstone in gallbladder Fatigue Qualifiers: Fatigue type: unspecified Qualified Code(s): R53.83 - Other fatigue Chronic kidney disease Qualifiers: Chronic kidney disease stage: unspecified stage Qualified Code(s): N18.9 - Chronic kidney disease, unspecified Condition: Good Disposition: HOME, SELF-CARE Instructions: Weakness ([facility]) Additional Instructions: Your laboratory studies today do not show any acute abnormalities. You still have elevated renal function showing renal failure I did discuss your case with your information technology consultant Dr. Hall states that if you are still feeling bad she can be admitted to the hospital however if you feel like going home you can be discharged to follow-up after next appointment. At this time he states an understanding and wished to be discharged at this time. X-ray of her abdomen shows a possible gallstone. Your abdomen soft nontender I would recommend eating a bland diet for the next 2-3 days nothing fatty nothing greasy nothing fried. He may take the Zofran as provided for any nausea or vomiting. Return to ER immediately if her symptoms worsen follow-up with Dr. Hall Referrals: JOSE HALL MD [Primary Care Provider] - Follow up as needed
--- NOTE | 2018-05-09 21:56 | EKG REPORT ---
SEVERITY:- ABNORMAL ECG - SINUS RHYTHM PROBABLE LEFT ATRIAL ABNORMALITY LEFT VENTRICULAR HYPERTROPHY NONSPECIFIC T ABNORMALITIES, INFERIOR LEADS BORDERLINE PROLONGED QT INTERVAL : Confirmed by: Lisbet Mcgee 09-May-2018 21:55:43
== END 2018-05-09 17:55 | disposition home or self-care (01) ==
LOC: ER 14:07
DX: N19 Unspecified kidney failure (principal); N18.9 Chronic kidney disease, unspecified; R53.83 Other fatigue; R53.1 Weakness; R11.2 Nausea with vomiting, unspecified; E78.00 Pure hypercholesterolemia, unspecified; I12.9 Hypertensive chronic kidney disease with stage 1 through stage 4 chronic kidney disease, or unspecified chronic kidney disease; E11.9 Type 2 diabetes mellitus without complications
CPT/HCPCS: 93005; 99285; 96361; 96374; 36415; 83690; 85025; 80053; 81001; 84484; 74022; 93010; J0780; J7040

== ENCOUNTER → 2018-05-14 | Outpatient (CLI) | payer MEDICARE ==
[2018-05-14 08:14] LABS: ABSOLUTE BASOPHILS # (AUTO) 0.1 10^3/uL (0.0-0.2); ABSOLUTE EOSINOPHILS # (AUTO) 0.2 10^3/uL (0.0-0.6); ABSOLUTE MONOCYTES (AUTO) 0.6 10^3/uL (0.1-1.4); ABSOLUTE NEUT (AUTO) 6.7 10^3/uL (1.7-8.2); BASOPHILS % (AUTO) 0.8 % (0-2); EOSINOPHILS % (AUTO) 1.9 % (0-6); HEMATOCRIT 26.2 % (37.9-51.0); HEMOGLOBIN 8.8 g/dL (13.5-17.0); LYMPHOCYTES % (AUTO) 20.9 % (13-45); MEAN CORPUSCULAR HEMOGLOBIN 30.3 pg (27.0-33.4); MEAN CORPUSCULAR HGB CONC 33.7 g/dL (32.0-36.0); MEAN CORPUSCULAR VOLUME 90 fl (80-97); MONOCYTES % (AUTO) 6.6 % (3-13); PLATELET COUNT 352 10^3/uL (150-450); RED BLOOD COUNT 2.91 10^6/uL (4.35-5.55); RED CELL DISTRIBUTION WIDTH 14.2 % (11.5-14.0); SEGMENTED NEUTROPHILS % (AUTO) 69.8 % (42-78); TOTAL CELLS COUNTED % (AUTO) 100 %; WHITE BLOOD COUNT 9.5 10^3/uL (4.0-10.5)
[2018-05-14 08:42] LABS: ANION GAP 13 (5-19); BLOOD UREA NITROGEN 57 mg/dL (7-20); CARBON DIOXIDE 22 mmol/L (22-30); CHLORIDE 110 mmol/L (98-107); GLUCOSE 143 mg/dL (75-110); POTASSIUM 4.3 mmol/L (3.6-5.0); SODIUM 144.6 mmol/L (137-145)
== END ==
LOC: OD 07:12
PROVIDERS: ATTEND Internal Medicine Nephrology
DX: N18.5 Chronic kidney disease, stage 5 (principal); N18.9 Chronic kidney disease, unspecified
CPT/HCPCS: 36415; 80048; 85025

== ENCOUNTER → 2018-07-23 | Outpatient (CLI) | payer MEDICARE ==
[2018-07-23 07:45] LABS: ABSOLUTE BASOPHILS # (AUTO) 0.1 10^3/uL (0.0-0.2); ABSOLUTE EOSINOPHILS # (AUTO) 0.5 10^3/uL (0.0-0.6); ABSOLUTE LYMPHOCYTES (AUTO) 2.8 10^3/uL (0.5-4.7); ABSOLUTE MONOCYTES (AUTO) 0.9 10^3/uL (0.1-1.4); ABSOLUTE NEUT (AUTO) 5.7 10^3/uL (1.7-8.2); EOSINOPHILS % (AUTO) 4.9 % (0-6); HEMOGLOBIN 10.9 g/dL (13.5-17.0); LYMPHOCYTES % (AUTO) 28.4 % (13-45); MEAN CORPUSCULAR HEMOGLOBIN 28.9 pg (27.0-33.4); MEAN CORPUSCULAR HGB CONC 32.9 g/dL (32.0-36.0); MEAN CORPUSCULAR VOLUME 88 fl (80-97); MONOCYTES % (AUTO) 8.8 % (3-13); PLATELET COUNT 268 10^3/uL (150-450); RED BLOOD COUNT 3.76 10^6/uL (4.35-5.55); RED CELL DISTRIBUTION WIDTH 16.3 % (11.5-14.0); SEGMENTED NEUTROPHILS % (AUTO) 56.9 % (42-78); TOTAL CELLS COUNTED % (AUTO) 100 %; WHITE BLOOD COUNT 9.9 10^3/uL (4.0-10.5)
[2018-07-23 08:10] LABS: ANION GAP 11 (5-19); BLOOD UREA NITROGEN 65 mg/dL (7-20); CALCIUM 9.6 mg/dL (8.4-10.2); CARBON DIOXIDE 26 mmol/L (22-30); CHLORIDE 105 mmol/L (98-107); GLUCOSE 146 mg/dL (75-110); IRON(TIBC) 64.9 ug/dL (49-181); PHOSPHORUS 5.7 mg/dL (2.5-4.5); POTASSIUM 5.1 mmol/L (3.6-5.0); SODIUM 141.6 mmol/L (137-145)
== END ==
LOC: OD 07:15
PROVIDERS: ATTEND Internal Medicine Nephrology
DX: N18.4 Chronic kidney disease, stage 4 (severe) (principal); D63.1 Anemia in chronic kidney disease; N25.81 Secondary hyperparathyroidism of renal origin; E11.21 Type 2 diabetes mellitus with diabetic nephropathy
CPT/HCPCS: 36415; 80048; 82728; 83540; 83550; 83970; 84100; 85025

== ENCOUNTER → 2018-08-30 | Outpatient (CLI) | payer MEDICARE ==
[2018-08-30 11:12] LABS: APPEARANCE,URINE CLEAR; BILIRUBIN,URINE NEGATIVE (NEGATIVE); COLOR,URINE STRAW; GLUCOSE, URINE >=500 mg/dL (NEGATIVE); KETONES,URINE NEGATIVE (NEGATIVE); LEUKOCYTE ESTERASE,URINE NEGATIVE (NEGATIVE); NITRITE,URINE NEGATIVE (NEGATIVE); PROTEIN,URINE 100 mg/dL (NEGATIVE); UROBILINOGEN,URINE NEGATIVE mg/dL (<2.0)
[2018-08-30 11:25] LABS: UR PRO/CREAT RATIO RESULT 3.8 mg/mg (0.0-0.2); URINE CREATININE 51.2 mg/dL (22-328); URINE PROTEIN 194.8 mg/dL (<12)
== END ==
LOC: OD 10:01
PROVIDERS: ATTEND Internal Medicine Nephrology
DX: N18.4 Chronic kidney disease, stage 4 (severe) (principal); E55.9 Vitamin D deficiency, unspecified; E83.52 Hypercalcemia; E83.39 Other disorders of phosphorus metabolism
CPT/HCPCS: 36415; 81001; 82306; 82570; 84100; 84156

== ENCOUNTER 2019-01-24 09:31 | Emergency (ER) | payer MEDICARE ==
--- NOTE | 2019-01-24 09:50 | ER Document Report ---
ED Medical Screen (RME) - General Chief Complaint: Abnormal Lab Results Stated Complaint: ABDORMIAL LABS Time Seen by Provider: 01/24/19 09:47 Primary Care Provider: JOSE HALL MD [Primary Care Provider] - Follow up as needed Mode of Arrival: Ambulatory Information source: Patient Notes: Patient is a 68-year-old male who presents to the emergency department after having labs drawn this morning in which he states his doctor's office called him and told him to come to the ED as they were abnormal. Patient reports he believes his calcium was elevated. Patient has no symptoms, states he feels fine. Patient does have a history of chronic kidney disease but is not on dialysis. Reviewing patient's records, patient has hypercalcemia and elevated creatinine, see outpatient labs in EMR. Exam: Patient alert, oriented, appears well. Lung sounds clear to auscultation bilaterally. I have greeted and performed a rapid initial assessment of this patient. A comprehensive ED assessment and evaluation of the patient, analysis of test results and completion of the medical decision making process will be conducted by additional ED providers. Dictation of this chart was performed using voice recognition software; therefore, there may be some unintended grammatical errors. TRAVEL OUTSIDE OF THE [place] IN LAST 30 DAYS: No - Related Data Allergies/Adverse Reactions: No Known Allergies Allergy (Verified 01/24/19 09:32) Past Medical History - Past Medical History Cardiac Medical History: Reports: Hx Hypercholesterolemia, Hx Hypertension Denies: Hx Coronary Artery Disease, Hx Heart Attack Pulmonary Medical History: Denies: Hx Asthma, Hx Bronchitis, Hx COPD, Hx Pneumonia Neurological Medical History: Denies: Hx Cerebrovascular Accident, Hx Seizures Endocrine Medical History: Reports: Hx Diabetes Mellitus Type 2 Renal/ Medical History: Denies: Hx Peritoneal Dialysis Musculoskeltal Medical History: Reports Hx Arthritis Past Surgical History: Reports: Hx Orthopedic Surgery - right shoulder - Immunizations Hx Diphtheria, Pertussis, Tetanus Vaccination: No Physical Exam - Vital signs Vitals: Temp Pulse Resp BP Pulse Ox 98.1 F 68 14 172/77 H 100 01/24/19 09:40 01/24/19 09:40 01/24/19 09:40 01/24/19 09:40 01/24/19 09:40 Course - Vital Signs Vital signs: Temp Pulse Resp BP Pulse Ox 98.1 F 68 14 172/77 H 100 01/24/19 09:40 01/24/19 09:40 01/24/19 09:40 01/24/19 09:40 01/24/19 09:40 Doctor's Discharge - Discharge Referrals: JOSE HALL MD [Primary Care Provider] - Follow up as needed
[2019-01-24 10:03] LABS: ABSOLUTE BASOPHILS # (AUTO) 0.1 10^3/uL (0.0-0.2); ABSOLUTE EOSINOPHILS # (AUTO) 0.3 10^3/uL (0.0-0.6); ABSOLUTE LYMPHOCYTES (AUTO) 2.5 10^3/uL (0.5-4.7); ABSOLUTE MONOCYTES (AUTO) 0.7 10^3/uL (0.1-1.4); ABSOLUTE NEUT (AUTO) 4.4 10^3/uL (1.7-8.2); BASOPHILS % (AUTO) 0.9 % (0-2); EOSINOPHILS % (AUTO) 3.8 % (0-6); HEMATOCRIT 28.3 % (37.9-51.0); HEMOGLOBIN 9.7 g/dL (13.5-17.0); LYMPHOCYTES % (AUTO) 30.8 % (13-45); MEAN CORPUSCULAR HEMOGLOBIN 31.5 pg (27.0-33.4); MEAN CORPUSCULAR HGB CONC 34.1 g/dL (32.0-36.0); MEAN CORPUSCULAR VOLUME 92 fl (80-97); PLATELET COUNT 219 10^3/uL (150-450); RED BLOOD COUNT 3.07 10^6/uL (4.35-5.55); RED CELL DISTRIBUTION WIDTH 14.1 % (11.5-14.0); SEGMENTED NEUTROPHILS % (AUTO) 55.5 % (42-78); TOTAL CELLS COUNTED % (AUTO) 100 %
[2019-01-24 10:22] LABS: ALANINE AMINOTRANSFERASE 66 U/L (21-72); ALBUMIN 4.2 g/dL (3.5-5.0); ALKALINE PHOSPHATASE 57 U/L (38-126); ANION GAP 14 (5-19); ASPARTATE AMINO TRANSFERASE 41 U/L (17-59); BILIRUBIN,DIRECT 0.3 mg/dL (0.0-0.4); BILIRUBIN,TOTAL 0.3 mg/dL (0.2-1.3); BLOOD UREA NITROGEN 77 mg/dL (7-20); CALCIUM 11.4 mg/dL (8.4-10.2); CARBON DIOXIDE 21 mmol/L (22-30); CHLORIDE 108 mmol/L (98-107); GLUCOSE 219 mg/dL (75-110); SODIUM 142.7 mmol/L (137-145); TOTAL PROTEIN 7.2 g/dL (6.3-8.2)
[2019-01-24] MEDS ORDERED: NORMAL SALINE 1000 ML 1,000 ML IV ONE (11:27)
--- NOTE | 2019-01-24 13:03 | ER Document Report ---
Doctor's Note Notes: I personally and independently obtained patient history and examined the patient in conjunction with the APC and agree with the assessment, treatment plan and disposition of the patient as recorded by the APC, and have reviewed the APC's note. HISTORY OF PRESENT ILLNESS: Patient is a 68-year-old male with chronic kidney disease stage IV that presents to the emergency department for chief complaint of hypercalcemia on outpatient blood work. Patient denies any complaints such as confusion, muscle aches or pains. ROS: Constitutional: Negative for fever. Cardiovascular: Negative for chest pain. Respiratory: Negative for shortness of breath. Gastrointestinal: Negative for vomiting or abdominal pain Musculoskeletal: Negative for arm, leg or back pain Skin: Negative for rash. Neurological: Negative for weakness or numbness. Other than noted above, the 12 point review of systems was reviewed with the patient and were negative, all pertinent findings are included in the HPI. PHYSICAL EXAMINATION: Vital signs reviewed, nursing noted reviewed. GENERAL: Elderly male, no acute distress HEAD: Atraumatic, normocephalic. EYES: Eyes appear normal, conjunctiva are normal. ENT: nares patent, oropharynx clear without exudates. Mildly dry mucous membranes NECK: Normal range of motion, supple without lymphadenopathy LUNGS: Breath sounds clear to auscultation bilaterally and equal. No wheezes rales or rhonchi. HEART: Regular rate and rhythm without murmurs ABDOMEN: Soft, nontender, normoactive bowel sounds. No rebound, guarding, or rigidity. No masses appreciated. EXTREMITIES: Nontender, good range of motion, no pitting or edema. NEUROLOGICAL: No focal neurological deficits. Moves all extremities spontaneously Motor and sensory grossly intact on exam. PSYCH: Normal mood, normal affect. SKIN: Warm, Dry, normal turgor, no rashes or lesions noted on exposed skin MEDICAL DECISION MAKING: Patient seen and examined, vital signs reviewed, patient's blood work was reviewed, he had a hypercalcemia on his blood work today, was improved from earlier, case was discussed and consulted with the patient's hard hat diver, Dr. Hill, who recommended IV fluids and repeat blood work, and if improving, patient can be discharged home, patient was agreeable to this plan of care. Please review detail APC documentation. *Note is created using voice recognition software and may contain spelling, syntax or grammatical errors.
[2019-01-24 13:28] LABS: ALANINE AMINOTRANSFERASE 61 U/L (21-72); ALBUMIN 3.7 g/dL (3.5-5.0); ALKALINE PHOSPHATASE 52 U/L (38-126); ANION GAP 8 (5-19); ASPARTATE AMINO TRANSFERASE 32 U/L (17-59); BILIRUBIN,DIRECT 0.3 mg/dL (0.0-0.4); BILIRUBIN,TOTAL 0.3 mg/dL (0.2-1.3); BLOOD UREA NITROGEN 76 mg/dL (7-20); CALCIUM 10.9 mg/dL (8.4-10.2); CARBON DIOXIDE 21 mmol/L (22-30); CHLORIDE 114 mmol/L (98-107); GLUCOSE 142 mg/dL (75-110); POTASSIUM 4.7 mmol/L (3.6-5.0); SODIUM 143.1 mmol/L (137-145); TOTAL PROTEIN 6.4 g/dL (6.3-8.2)
[2019-01-24 14:39] VITALS: BP 139/84
--- NOTE | 2019-01-24 15:19 | ER Document Report ---
ED General - General Chief Complaint: Abnormal Lab Results Stated Complaint: ABDORMIAL LABS Time Seen by Provider: 01/24/19 09:47 Primary Care Provider: JOSE HALL MD [Primary Care Provider] - Follow up as needed Mode of Arrival: Ambulatory Information source: Patient Notes: Patient is a 68-year-old male who comes to the emergency room stating that his doctor Dr. Hall nephrology sent him here because he had abnormal labs this morning. Patient is alert not he does not not know why he is here. He states he feels well he is eating well he has no complaints. Patient denies any chest pain,, shortness of breath. He denies any cough congestion or runny nose. Patient also states that he is urinating well and has no difficulty with starting his stream or maintaining the stream. TRAVEL OUTSIDE OF THE [place] IN LAST 30 DAYS: No - HPI Onset: This morning Onset/Duration: Gradual Quality of pain: No pain Pain Level: Denies Associated symptoms: None Exacerbated by: Denies Relieved by: Denies Similar symptoms previously: No Recently seen / treated by doctor: No - Related Data Allergies/Adverse Reactions: No Known Allergies Allergy (Verified 01/24/19 09:32) Past Medical History - General Information source: Dr. Macias - Social History Smoking Status: Former Smoker Cigarette use (# per day): No Chew tobacco use (# tins/day): No Smoking Education Provided: No Frequency of alcohol use: None Drug Abuse: None Lives with: Alone Family History: Reviewed & Not Pertinent Patient has suicidal ideation: No Patient has homicidal ideation: No - Past Medical History Cardiac Medical History: Reports: Hx Hypercholesterolemia, Hx Hypertension Denies: Hx Coronary Artery Disease, Hx Heart Attack Pulmonary Medical History: Denies: Hx Asthma, Hx Bronchitis, Hx COPD, Hx Pneumonia Neurological Medical History: Denies: Hx Cerebrovascular Accident, Hx Seizures Endocrine Medical History: Reports: Hx Diabetes Mellitus Type 2 Renal/ Medical History: Denies: Hx Peritoneal Dialysis Musculoskeletal Medical History: Reports Hx Arthritis Past Surgical History: Reports: Hx Orthopedic Surgery - right shoulder - Immunizations Hx Diphtheria, Pertussis, Tetanus Vaccination: No Hx Pneumococcal Vaccination: 03/23/13 Review of Systems - Review of Systems Constitutional: No symptoms reported EENT: No symptoms reported Cardiovascular: No symptoms reported Respiratory: No symptoms reported Gastrointestinal: No symptoms reported Genitourinary: No symptoms reported Male Genitourinary: No symptoms reported Musculoskeletal: No symptoms reported Skin: No symptoms reported Hematologic/Lymphatic: No symptoms reported Neurological/Psychological: No symptoms reported -: Yes All other systems reviewed and negative Physical Exam - Vital signs Vitals: Temp Pulse Resp BP Pulse Ox 98.1 F 68 14 172/77 H 100 01/24/19 09:40 01/24/19 09:40 01/24/19 09:40 01/24/19 09:40 01/24/19 09:40 Interpretation: Hypertensive - Notes Notes: PHYSICAL EXAMINATION: GENERAL: Patient is a frail-appearing 68-year-old male who is in no apparent distress on physical exam today. HEAD: Atraumatic, normocephalic. EYES: Pupils equal round and reactive to light, extraocular movements intact, sclera anicteric, conjunctiva are normal. ENT: Nares patent, oropharynx clear without exudates. Dry mucous membranes. NECK: Normal range of motion, supple without lymphadenopathy LUNGS: Breath sounds clear to auscultation bilaterally and equal. No wheezes rales or rhonchi. HEART: Regular rate and rhythm without murmurs ABDOMEN: Soft, nontender, nondistended abdomen. No guarding, no rebound. No ma sses appreciated. Musculoskeletal: Normal range of motion, no pitting or edema. No cyanosis. NEUROLOGICAL: Normal speech, normal gait. Normal sensory, motor exams PSYCH: Normal mood, normal affect. SKIN: Warm, Dry, normal turgor, no rashes or lesions noted. Course - Re-evaluation Re-evalutation: 01/25/19 08:[address] Hall's office and discussed the case with her personally. She knows the patient and states that he has not been to our office in several months and today was a follow-up lab draw for him outpatient. She received the labs and noticed that his calcium was 12.4 and send him to the ER for evalu ation. After evaluation she informed me that we could give a liter of fluids even though his BUN and creatinine were 79 and 5. She states she is end-stage renal failure and is one step closer to dialysis. She states that he is in denial but if we can give a liter of fluids and see a down trend his calcium we can discharge him home. Patient received a liter of fluids and a repeat draw of his chemistries which showed that his calcium was downward trending and came back at 10.8. With this in him feeling well we will discharge him home with the advice to increase fluids somewhat and he has an appointment to follow-up with her this week. Patient had no symptomatology on arrival and left feeling even better. - Vital Signs Vital signs: Temp Pulse Resp BP Pulse Ox 97.6 F 74 14 139/84 H 100 01/24/19 14:39 01/24/19 14:33 01/24/19 09:40 01/24/19 14:33 01/24/19 14:33 - Laboratory Result Diagrams: 01/24/19 09:53 01/24/19 12:58 Laboratory results interpreted by me: 01/24/19 01/24/19 01/24/19 09:53 09:53 12:58 RBC 3.07 L Hgb 9.7 L Hct 28.3 L RDW 14.1 H Chloride 108 H 114 H Carbon Dioxide 21 L 21 L BUN 77 H 76 H Creatinine 4.95 H 4.76 H Est GFR ( Amer) 14 L 15 L Est GFR (Non-Af Amer) 12 L 12 L Glucose 219 H 142 H Calcium 11.4 H 10.9 H Discharge - Discharge Clinical Impression: Hypercalcemia, Chronic renal failure, stage 4 (severe) Condition: Good Disposition: HOME, SELF-CARE Instructions: Kidney Failure ([facility]) Additional Instructions: At this time we have talked to Dr. Hall and she wants to see you sometime this week she will contact her office first thing tomorrow to see if they want to see before the eighth. Increase your fluids mostly water at this point orally as long as you are urinating. If you are not urinating you need to come back sooner to the ER. Referrals: JOSE HALL MD [Primary Care Provider] - Follow up as needed
== END 2019-01-24 15:28 | disposition home or self-care (01) ==
LOC: ER 09:31
DX: E83.52 Hypercalcemia (principal); I12.9 Hypertensive chronic kidney disease with stage 1 through stage 4 chronic kidney disease, or unspecified chronic kidney disease; N18.4 Chronic kidney disease, stage 4 (severe); E11.22 Type 2 diabetes mellitus with diabetic chronic kidney disease; Z87.891 Personal history of nicotine dependence
CPT/HCPCS: 99283; 96360; 36415; 85025; 80053; J7030; 80048; 83540; 83550; 83970

== ENCOUNTER → 2019-01-24 | Outpatient (CLI) | payer MEDICARE ==
[2019-01-24 08:00] LABS: IRON(TIBC) 72.5 ug/dL (49-181)
[2019-01-24 08:01] LABS: ANION GAP 11 (5-19); BLOOD UREA NITROGEN 79 mg/dL (7-20); CARBON DIOXIDE 22 mmol/L (22-30); CHLORIDE 110 mmol/L (98-107); GLUCOSE 105 mg/dL (75-110); SODIUM 143.4 mmol/L (137-145)
[2019-01-24 08:40] LABS: CALCIUM 12.2 mg/dL (8.4-10.2)
== END ==
LOC: OD 07:13
PROVIDERS: ATTEND Internal Medicine Nephrology
DX: E11.21 Type 2 diabetes mellitus with diabetic nephropathy (principal); N18.4 Chronic kidney disease, stage 4 (severe); N25.81 Secondary hyperparathyroidism of renal origin; D63.1 Anemia in chronic kidney disease
CPT/HCPCS: 36415; 80048; 83540; 83550; 83970

== ENCOUNTER → 2019-02-25 | Outpatient (CLI) | payer MEDICARE ==
[2019-02-25 08:26] LABS: ABSOLUTE BASOPHILS # (AUTO) 0.1 10^3/uL (0.0-0.2); ABSOLUTE EOSINOPHILS # (AUTO) 0.4 10^3/uL (0.0-0.6); ABSOLUTE LYMPHOCYTES (AUTO) 2.7 10^3/uL (0.5-4.7); ABSOLUTE MONOCYTES (AUTO) 0.9 10^3/uL (0.1-1.4); ABSOLUTE NEUT (AUTO) 7.9 10^3/uL (1.7-8.2); BASOPHILS % (AUTO) 0.9 % (0-2); EOSINOPHILS % (AUTO) 3.3 % (0-6); HEMATOCRIT 28.5 % (37.9-51.0); HEMOGLOBIN 9.5 g/dL (13.5-17.0); LYMPHOCYTES % (AUTO) 22.4 % (13-45); MEAN CORPUSCULAR HEMOGLOBIN 30.2 pg (27.0-33.4); MEAN CORPUSCULAR HGB CONC 33.3 g/dL (32.0-36.0); MEAN CORPUSCULAR VOLUME 91 fl (80-97); MONOCYTES % (AUTO) 7.7 % (3-13); PLATELET COUNT 331 10^3/uL (150-450); RED BLOOD COUNT 3.13 10^6/uL (4.35-5.55); RED CELL DISTRIBUTION WIDTH 13.8 % (11.5-14.0); SEGMENTED NEUTROPHILS % (AUTO) 65.7 % (42-78); TOTAL CELLS COUNTED % (AUTO) 100 %
[2019-02-25 08:28] LABS: APPEARANCE,URINE CLEAR; BILIRUBIN,URINE NEGATIVE (NEGATIVE); COLOR,URINE STRAW; GLUCOSE, URINE >=500 mg/dL (NEGATIVE); KETONES,URINE NEGATIVE (NEGATIVE); LEUKOCYTE ESTERASE,URINE NEGATIVE (NEGATIVE); NITRITE,URINE NEGATIVE (NEGATIVE); PROTEIN,URINE 100 mg/dL (NEGATIVE); UROBILINOGEN,URINE NEGATIVE mg/dL (<2.0)
[2019-02-25 09:02] LABS: UR PRO/CREAT RATIO RESULT 2.6 mg/mg (0.0-0.2); URINE CREATININE 75.5 mg/dL (22-328); URINE PROTEIN 194.8 mg/dL (<12)
[2019-02-25 09:17] LABS: ALBUMIN 4.1 g/dL (3.5-5.0); IRON 54.1 ug/dL (49-181); PHOSPHORUS 5.2 mg/dL (2.5-4.5)
== END ==
LOC: OD 07:02
PROVIDERS: ATTEND Internal Medicine Nephrology
DX: N18.4 Chronic kidney disease, stage 4 (severe) (principal); E11.21 Type 2 diabetes mellitus with diabetic nephropathy; D63.1 Anemia in chronic kidney disease; N25.81 Secondary hyperparathyroidism of renal origin
CPT/HCPCS: 36415; 81001; 82040; 82306; 82570; 82728; 83540; 84100; 84156; 85025

== ENCOUNTER → 2019-06-07 | Outpatient (CLI) | payer MEDICARE | LOC: OD 10:40 | PROVIDERS: ATTEND Internal Medicine Nephrology | DX: I12.0 Hypertensive chronic kidney disease with stage 5 chronic kidney disease or end stage renal disease (principal); N18.5 Chronic kidney disease, stage 5; E11.22 Type 2 diabetes mellitus with diabetic chronic kidney disease; D63.1 Anemia in chronic kidney disease; E87.5 Hyperkalemia | CPT/HCPCS: 36415; 84132 ==

== ENCOUNTER 2020-07-28 16:43 | Inpatient (IN) | payer MEDICARE ==
--- NOTE | 2020-07-28 17:38 | EKG REPORT ---
SEVERITY:- ABNORMAL ECG - SINUS RHYTHM PROBABLE LEFT ATRIAL ABNORMALITY LEFT VENTRICULAR HYPERTROPHY : Confirmed by: Tanya Del Toro MD 28-Jul-2020 17:37:08
[2020-07-28] MEDS ORDERED: NORMAL SALINE 1000 ML 1,000 ML IV ONE (19:14)
[2020-07-28] MEDS ORDERED: ONDANSETRON HCL INJ/PF 4 MG/2 ML SDV IV ONE (19:16)
[2020-07-28] MEDS ORDERED: ACETAMINOPHEN 325 MG TABLET PO ONE (19:18)
--- NOTE | 2020-07-28 19:18 | ER Document Report ---
ED General - General Mode of Arrival: Ambulatory Information source: Patient TRAVEL OUTSIDE OF THE U.S. IN LAST 30 DAYS: No <LUIS CARLOS MEDINA - Last Filed: 07/29/20 18:30> <MALENA SCOTT - Last Filed: 07/30/20 01:16> - General Chief Complaint: Near Syncope Stated Complaint: NEAR SYNCOPE Time Seen by Provider: 07/28/20 18:04 Primary Care Provider: JOSE HALL MD [Primary Care Provider] - Follow up as needed Notes: Patient is a 70-year-old male who comes in today with dizziness and near syncope. Patient states he is had vomiting and diarrhea for the past 2 days. Today when he stood up from the chair he got dizzy and started moving forward and could not stop himself and fell. Did not syncopized. Only felt dizzy. No chest pain or shortness of breath. He did not sustain any injuries. (LUIS CARLOS MEDINA) - Related Data Allergies/Adverse Reactions: No Known Allergies Allergy (Verified 01/24/19 09:32) Past Medical History - Social History Smoking Status: Never Smoker Chew tobacco use (# tins/day): No Frequency of alcohol use: None Drug Abuse: None Family History: Reviewed & Not Pertinent Patient has homicidal ideation: No - Past Medical History Cardiac Medical History: Reports: Hx Hypercholesterolemia, Hx Hypertension Denies: Hx Coronary Artery Disease, Hx Heart Attack Pulmonary Medical History: Denies: Hx Asthma, Hx Bronchitis, Hx COPD, Hx Pneumonia Neurological Medical History: Denies: Hx Cerebrovascular Accident, Hx Seizures Endocrine Medical History: Reports: Hx Diabetes Mellitus Type 2 Renal/ Medical History: Denies: Hx Peritoneal Dialysis Musculoskeletal Medical History: Reports Hx Arthritis Past Surgical History: Reports: Hx Orthopedic Surgery - right shoulder - Immunizations Hx Diphtheria, Pertussis, Tetanus Vaccination: No Hx Pneumococcal Vaccination: 03/23/13 <LUIS CARLOS MEDINA - Last Filed: 07/29/20 18:30> Review of Systems <LUIS CARLOS MEDINA - Last Filed: 07/29/20 18:30> - Review of Systems Notes: Constitutional: No fevers. No chills. EENT: No eye redness. No eye pain. No ear pain. No sore throat. Cardiovascular: No chest pain. No palpitations. Respiratory: No cough. No shortness of breath. No respiratory distress. Gastrointestinal: Positive for nausea, vomiting, and diarrhea Genitourinary: Atraumatic. No lesions. No pain. No discharge. Musculoskeletal: Atraumatic. No swelling. No deformities. Skin: No rash or lesions. Lymphatic: No swollen lymph nodes. Neurologic: No headache. No syncope. Positive for dizziness/weakness Psychiatric: No suicidal or homicidal ideation. (LUIS CARLOS MEDINA) Physical Exam <LUIS CARLOS MEDINA - Last Filed: 07/29/20 18:30> - Vital signs Vitals: Temp 100.1 F 07/28/20 16:44 - Notes Notes: General: Well-developed, well-nourished. In no acute distress. Non-toxic appearing. Cardiac: Well-perfused. Regular rate and rhythm. No murmurs, rubs, or gallops. Pulmonary: No respiratory distress. No cyanosis. Bilateral lung fiels are clear to auscultation. Abdominal: Non-distended. Non-rigid. Bowels sounds are present in all four quadrants. No guarding or rebound. HEENT: Head is atraumatic. Conjunctivae not reddened. No tearing. PERRL. EOMI. Orbits atraumatic. No periorbital swelling or erythema. Oropharynx is without erythema, swelling, or exudates. Oral mucosa appears dry lower lip is also dry Neck: Supple. No adenopathy. No meningismus. Dermatologic: Warm with good turgor. No rash. Atraumatic. Chest: Atraumatic. No chest wall tenderness to palpation. Musculoskeletal: Moves all extremities well. No range of motion deficits. no muscular or joint tenderness. No paraspinal muscle tenderness. no midline spinal tenderness or step-off. Genitourinary: Examination deferred Neurologic: No gross neurologic deficits. Psychiatric: Normal mood. (LUIS CARLOS MEDINA) Course - Laboratory Result Diagrams: 07/28/20 18:30 07/28/20 18:30 - EKG Interpretation by Ar EKG shows normal: Sinus rhythm Rate: Normal Rhythm: NSR <LUIS CARLOS MEDINA - Last Filed: 07/29/20 18:30> - Laboratory Result Diagrams: 07/29/20 20:00 07/29/20 20:00 - Diagnostic Test Radiology reviewed: Reports reviewed <LILLIAN,MALENA P - Last Filed: 07/30/20 01:16> - Re-evaluation Re-evalutation: 07/28/20 19:21 Patient is feeling better after the little bit of fluid that he has had. He does not look acutely toxic however he is reporting a history of some nausea vomiting and diarrhea for the past couple days. Thinks he got dehydrated. In any event he is got any quite a bit of work-up to sort through this. Potentially there could be some abdominal pathology that was causing the vomiting and diarrhea. We will also check basic lab work, lipase, urine, cardiac enzymes for atypical cardiac presentation. Have to be cautious with his fluids because he does have chronic kidney problems 07/29/20 01:26 I discussed that case with Dr. Scott. He agrees that this is a choledocholithiasis and will need ERCP. He discussed the case with on-call surgical list who concurred that this is an obstructive process and needs ERCP. I have made contact with the facility at [facility] in [place]. GI specialist there does not do ERCP. [facility] in [place] has the capabilities but is not excepting medical transfers. They have no wait list. [facility] [place] in [place] has the ability but does not have any beds and does not have a wait list. [facility] in [place] affirms they have the capability but no beds available. Spoke to ER attending and GI hepatobiliary se rvice at [facility]. They have the service available but are not willing to accept a transfer at this time as they are at near capacity. I spoke to [facility] earlier in the evening and they offered to put me on a wait list. We have initiated that process with them. 07/29/20 02:[address] Ferreira, the on-call hospitalist, who is willing to take the patient on the waiting list in the stepdown unit at [facility]. [facility] request that we call them back with the COVID-19 results if they are available. Also if patient decompensates, they would like to know about that as soon as possible. If the patient ends up being transferred somewhere else also notify them. 07/29/20 18:30 Patient's care was handed off to me from Dr. Waters at 1600 today. We evaluated the patient together at bedside. Clinically he is looking better. His mouth is nice and moist and his lips are no longer dry. He is not having any nausea or vomiting. States he had a coughing fit earlier and subsequently had a post tussive emesis. No news from [facility] to this point. We will continue LR at 100/h per Dr. Navarrete instructions. (LUIS CARLOS MEDINA) 07/29/20 03:01 I have discussed the case with the transfer center at [facility] and the surgicalist (Dr. Morris) here. This gentleman has multiple medical problems - CRF, htn, dm, hld, and now obstructive gallbladder disease. Antibiotics have been ordered and we are unable to perform an ERCP here and the regional referral tertiary care facilities are without beds at this time with the exception of [facility]. The renally adjusted dose for this gentlemans GFR would be 2.25 g tid. 07/30/20 01:09 Still no bed available at this time. Clinically he is improved a bit and labs - with the excpetion of Creatine - are improved. We will give IVF and hopefully a bed will available at [facility] later today. I have discussed the pt with the transfer center at [facility] and still no beds. I reviewed his lab studies with them. (MALENA SCTOT) - Vital Signs Vital signs: Temp Pulse Resp BP Pulse Ox 98.1 F 71 22 H 154/91 H 95 07/29/20 20:00 07/29/20 07:04 07/29/20 19:01 07/29/20 19:01 07/29/20 07:04 - Laboratory Laboratory results interpreted by me: 07/28/20 07/28/20 07/28/20 18:30 18:30 18:30 WBC 13.9 H RBC 2.65 L Hgb 8.0 L Hct 23.8 L RDW 14.3 H Lymph % (Auto) 7.8 L Absolute Neuts (auto) 11.6 H Seg Neutrophils % 83.4 H Carbon Dioxide 17 L Anion Gap BUN 56 H Creatinine 4.46 H Est GFR ( Amer) 16 L Est GFR (MDRD) Non-Af 13 L Glucose 168 H Calcium Total Bilirubin 4.8 H Direct Bilirubin 4.2 H AST 248 H ALT 428 H Alkaline Phosphatase 585 H Albumin Urine Protein 100 H Urine Glucose (UA) >=500 H Urine Ketones 20 H Urine Blood SMALL H Urine Urobilinogen 2.0 H 07/29/20 07/29/20 20:00 20:00 WBC 12.8 H RBC 3.02 L Hgb 9.3 L Hct 27.1 L RDW 15.1 H Lymph % (Auto) 8.9 L Absolute Neuts (auto) 11.2 H Seg Neutrophils % 87.2 H Carbon Dioxide 14 L Anion Gap 20 H BUN 76 H Creatinine 5.64 H Est GFR ( Amer) 12 L Est GFR (MDRD) Non-Af 10 L Glucose 231 H Calcium 8.3 L Total Bilirubin 3.6 H Direct Bilirubin 3.2 H AST 83 H ALT 290 H Alkaline Phosphatase 477 H Albumin 3.4 L Urine Protein Urine Glucose (UA) Urine Ketones Urine Blood Urine Urobilinogen - EKG Interpretation by Me Additional EKG results interpreted by me: 07/28/20 19:23 ST elevations or depressions (LUIS CARLOS MEDINA) Critical Care Note - Critical Care Note Total time excluding time spent on procedures (mins): 30 <MALENA SCOTT P - Last Filed: 07/30/20 01:16> Discharge <LUIS CARLOS MEDINA - Last Filed: 07/29/20 18:30> <MALENA SCOTT - Last Filed: 07/30/20 01:16> - Discharge Clinical Impression: Choledocholithiasis, Near syncope, Chronic anemia Nausea and vomiting Qualifiers: Vomiting type: unspecified Vomiting Intractability: unspecified Qualified Code(s): R11.2 - Nausea with vomiting, unspecified Chronic renal failure Qualifiers: Chronic kidney disease stage: unspecified stage Qualified Code(s): N18.9 - Chronic kidney disease, unspecified Condition: Fair Disposition: Tertiary-Other Referrals: JOSE HALL MD [Primary Care Provider] - Follow up as needed
[2020-07-28] MEDS ORDERED: NORMAL SALINE 500 ML IV ONE (19:19)
[2020-07-28 19:33] LABS: ABSOLUTE LYMPHOCYTES (AUTO) 1.1 10^3/uL (0.5-4.7); ABSOLUTE MONOCYTES (AUTO) 1.2 10^3/uL (0.1-1.4); ABSOLUTE NEUT (AUTO) 11.6 10^3/uL (1.7-8.2); BASOPHILS % (AUTO) 0.3 % (0-2); HEMATOCRIT 23.8 % (37.9-51.0); LYMPHOCYTES % (AUTO) 7.8 % (13-45); MEAN CORPUSCULAR HEMOGLOBIN 30.4 pg (27.0-33.4); MEAN CORPUSCULAR HGB CONC 33.8 g/dL (32.0-36.0); MEAN CORPUSCULAR VOLUME 90 fl (80-97); MONOCYTES % (AUTO) 8.5 % (3-13); PLATELET COUNT 280 10^3/uL (150-450); RED BLOOD COUNT 2.65 10^6/uL (4.35-5.55); RED CELL DISTRIBUTION WIDTH 14.3 % (11.5-14.0); SEGMENTED NEUTROPHILS % (AUTO) 83.4 % (42-78); TOTAL CELLS COUNTED % (AUTO) 100 %; WHITE BLOOD COUNT 13.9 10^3/uL (4.0-10.5)
[2020-07-28 19:37] LABS: APPEARANCE,URINE CLEAR; BILIRUBIN,URINE NEGATIVE (NEGATIVE); COLOR,URINE AMBER; GLUCOSE, URINE >=500 mg/dL (NEGATIVE); KETONES,URINE 20 mg/dL (NEGATIVE); PROTEIN,URINE 100 mg/dL (NEGATIVE); URINE SPECIFIC GRAVITY 1.011
[2020-07-28 19:39] LABS: ALBUMIN 3.7 g/dL (3.5-5.0); ALKALINE PHOSPHATASE 585 U/L (38-126); ANION GAP 19 (5-19); ASPARTATE AMINO TRANSFERASE 248 U/L (17-59); BILIRUBIN,DIRECT 4.2 mg/dL (0.0-0.4); BILIRUBIN,TOTAL 4.8 mg/dL (0.2-1.3); BLOOD UREA NITROGEN 56 mg/dL (7-20); CALCIUM 8.8 mg/dL (8.4-10.2); CARBON DIOXIDE 17 mmol/L (22-30); CHLORIDE 101 mmol/L (98-107); GLUCOSE 168 mg/dL (75-110); POTASSIUM 3.6 mmol/L (3.6-5.0); TOTAL PROTEIN 6.5 g/dL (6.3-8.2)
--- NOTE | 2020-07-28 19:59 | RADIOLOGY REPORT (SQ) ---
EXAM DESCRIPTION: CHEST SINGLE VIEW IMAGES COMPLETED DATE/TIME: 07/28/2020 7:36 pm REASON FOR STUDY: dizziness/near syncope COMPARISON: 05/06/2018 EXAM PARAMETERS: NUMBER OF VIEWS: One view. TECHNIQUE: Single frontal radiographic view of the chest acquired. RADIATION DOSE: NA LIMITATIONS: None. FINDINGS: LUNGS AND PLEURA: No opacities, masses or pneumothorax. No pleural effusion. MEDIASTINUM AND HILAR STRUCTURES: No masses. Contour normal. HEART AND VASCULAR STRUCTURES: Heart normal in size. Normal vasculature. BONES: No acute findings. HARDWARE: Status post right shoulder total arthroplasty. OTHER: No other significant finding. IMPRESSION: No evidence of acute cardiopulmonary process. TECHNICAL DOCUMENTATION: JOB ID: [id number] 2010 [employer]- All Rights Reserved Reading location - IP/workstation name: [email or web address]
--- NOTE | 2020-07-28 20:36 | RADIOLOGY REPORT (SQ) ---
EXAM DESCRIPTION: CT ABDOMEN PELVIS WITHOUT IV CONTRAST COMPLETED DATE/TME: 07/28/2020 19:15 CLINICAL HISTORY: 70 years, Male, vomiting COMPARISON: Prior CT dated 07/29/2015. TECHNIQUE: Noncontrast CT abdomen/pelvis was acquired. Coronal and sagittal reformations were created. Images stored on PACS. All CT scanners at this facility use dose modulation, iterative reconstruction, and/or weight based dosing when appropriate to reduce radiation dose to as low as reasonably achievable (ALARA). [facility]: Dose Right [facility]: CareDose [facility]: Dose Right [facility]: Teradose 4D [facility]: Printe[employer]ologics LIMITATIONS: None. FINDINGS: Limited evaluation of the lower chest reveals parenchymal bands about both lung bases, indicating areas of atelectasis and/or scar. Calcifications are evident about the coronary vessels, aortic valve, and thoracic aorta. There is a small hiatal hernia. Liver parenchyma demonstrates no suspicious abnormal normality. However, there is mild intrahepatic biliary ductal dilatation. The gallbladder is collapsed, thus its evaluation is limited due to there is a calcific density located in the region of the gallbladder neck versus cystic duct on image 26 of series 3. The common bile duct is poorly visualized. An additional area of calcification is noted about the liver hilum on image 22 of series 3, nonspecific. The pancreatic parenchyma appears diffusely atrophic, demonstrating multifocal parenchymal calcifications. The pancreatic head appears relatively normal in caliber, and similar in configuration to the previous study dated 07/29/2015, despite the presence of atrophy involving the pancreatic neck, body, and tail. Spleen and right adrenal gland appear normal. There is nodular enlargement of the left adrenal gland, unchanged from 07/29/2015. Left kidney shows no suspicious abnormality. Right kidney is located within the right lower quadrant. No hydronephrosis or hydroureter. The urinary bladder is well distended, demonstrating a bladder ear emanating into a left inguinal hernia. A small fat-containing right femoral hernia is also noted. Small and large bowel appear normal in caliber. No evidence of bowel obstruction. Appendix appears normal. Calcifications are evident about the abdominal aorta and proximal iliac vessels. There is a retroaortic left renal vein. No lymphadenopathy is appreciated. A small amount of subhepatic free fluid is noted. This is specifically located adjacent to the inferior aspect of the right hepatic lobe. Bone windows show no destructive osseous lesions. IMPRESSION: Large calculus located within the gallbladder neck or cystic duct with associated mild intrahepatic biliary duct dilatation, raising the possibility of Mirizzi syndrome. Correlate for obstructive laboratories and suggest confirmation with MRCP. At that time, the additional calcification located about the liver hilum can be reassessed as it is indeterminate. Findings compatible with chronic calcific pancreatitis. However, the pancreatic appears relatively normal in bulk, similar to the previous exam dated 07/29/2015. Small amount of subhepatic free fluid. Small hiatal hernia with circumferential distal esophageal wall thickening. Correlate for esophagitis. TECHNICAL DOCUMENTATION: Quality ID # [id number]: Final reports with documentation of one or more dose reduction techniques (e.g., Automated exposure control, adjustment of the mA and/or kV according to patient size, use of iterative reconstruction technique) copyright 2011 [employer]- All Rights Reserved
--- NOTE | 2020-07-28 22:03 | RADIOLOGY REPORT (SQ) ---
EXAM DESCRIPTION: US ABDOMEN LIMITED COMPLETED DATE/TME: 07/28/2020 20:00 CLINICAL HISTORY: 70 years, Male, vomiting for 2 days, transaminitis, evaluate GB COMPARISON: CT abdomen pelvis from today. FINDINGS: Echogenic fatty liver. No suspicious focal hepatic lesion. Normal flow in the portal vein. Tiny ascites. Gallbladder demonstrates stones. Gallbladder wall thickening between three and 4.5 mm. Nonspecific possibly inflammatory material around the gallbladder. Negative Gray sign. Borderline common bile duct is 7 mm. Question stones in the common bile duct. Greater intrahepatic biliary dilatation. Pancreas without acute findings. Fatty changes. CT demonstrated calcifications consistent with chronic pancreatitis. Right kidney not seen in its usual location. There is an atrophic kidney in the right pelvis. IMPRESSION: 1. Gallstones, gallbladder wall thickening, intrahepatic biliary dilatation and nonspecific possible inflammatory material surrounding the gallbladder. These findings are suspicious for acute cholecystitis. Gray's sign was negative but this does not exclude acute cholecystitis. 2. Common bile duct is only mildly dilated. . Question common bile duct stones. 3. Fatty liver. Low position of an atrophic right kidney in the pelvis.
[2020-07-28] MEDS ORDERED: PIPERACILLIN/TAZOBACTAM 3.375 GM VIAL IV ONE (22:09)
[2020-07-29] MEDS ORDERED: NORMAL SALINE 1000 ML 1,000 ML IV ONE ×2 (01:03→23:46)
[2020-07-29] MEDS ORDERED: PIPERACILLIN/TAZOBACTAM 3.375 GM VIAL IV SCH ×2 (04:10→06:45)
--- NOTE | 2020-07-29 09:26 | RADIOLOGY REPORT (SQ) ---
EXAM DESCRIPTION: MRI ABDOMEN WITHOUT IMAGES COMPLETED DATE/TIME: 07/29/2020 8:32 am REASON FOR STUDY: MRCP COMPARISON: 07/28/2020 TECHNIQUE: Noncontrast MRCP. Source and MIP images reviewed. LIMITATIONS: None. FINDINGS: GALLBLADDER: Largely decompressed. INTRAHEPATIC DUCTS: Mild intrahepatic biliary dilatation. EXTRAHEPATIC DUCTS: Re- demonstration of a large (approximately 1.1 cm) T1/T2 hypointense lesion whic h appears to localize to the common bile duct. PANCREAS: Largely atrophic. No significant pancreatic duct dilatation. LIVER, SPLEEN, KIDNEYS, ADRENALS: The right renal fossa is empty. No acute abnormalities. VESSELS: No evidence of aneurysm. Grossly appropriate flow voids in the major vascular structures. LUNG BASES: Trace pleural effusions. Bibasilar atelectasis. OTHER: Right upper quadrant inflammatory changes are again demonstrated. IMPRESSION: 1.1 cm calcific density appears to localize to the common bile duct. The gallbladder is largely decompressed and mild intrahepatic biliary dilatation persists. Associated right upper quad rant inflammatory changes. Other chronic and incidental findings as detailed above. TECHNICAL DOCUMENTATION: JOB ID: [id number] 2010 [employer]- All Rights Reserved Reading location - IP/workstation name: [email or web address]
[2020-07-29] MEDS: PIPERACILLIN/TAZOBACTAM 2.25 GM VIAL IV SCH (10:25)
[2020-07-29] MEDS ORDERED: RINGERS SOLUTION,LACTATED 1,000 ML IV ONE (15:47)
[2020-07-29 20:20] LABS: ABSOLUTE LYMPHOCYTES (AUTO) 1.1 10^3/uL (0.5-4.7); ABSOLUTE MONOCYTES (AUTO) 0.5 10^3/uL (0.1-1.4); ABSOLUTE NEUT (AUTO) 11.2 10^3/uL (1.7-8.2); BASOPHILS % (AUTO) 0.1 % (0-2); HEMATOCRIT 27.1 % (37.9-51.0); HEMOGLOBIN 9.3 g/dL (13.5-17.0); LYMPHOCYTES % (AUTO) 8.9 % (13-45); MEAN CORPUSCULAR HGB CONC 34.5 g/dL (32.0-36.0); MEAN CORPUSCULAR VOLUME 90 fl (80-97); MONOCYTES % (AUTO) 3.8 % (3-13); PLATELET COUNT 326 10^3/uL (150-450); RED BLOOD COUNT 3.02 10^6/uL (4.35-5.55); RED CELL DISTRIBUTION WIDTH 15.1 % (11.5-14.0); SEGMENTED NEUTROPHILS % (AUTO) 87.2 % (42-78); TOTAL CELLS COUNTED % (AUTO) 100 %; WHITE BLOOD COUNT 12.8 10^3/uL (4.0-10.5)
[2020-07-29 20:36] LABS: ALBUMIN 3.4 g/dL (3.5-5.0); ALKALINE PHOSPHATASE 477 U/L (38-126); ASPARTATE AMINO TRANSFERASE 83 U/L (17-59); BILIRUBIN,DIRECT 3.2 mg/dL (0.0-0.4); BILIRUBIN,TOTAL 3.6 mg/dL (0.2-1.3); BLOOD UREA NITROGEN 76 mg/dL (7-20); CALCIUM 8.3 mg/dL (8.4-10.2); CARBON DIOXIDE 14 mmol/L (22-30); GLUCOSE 231 mg/dL (75-110); TOTAL PROTEIN 6.3 g/dL (6.3-8.2)
[2020-07-29 20:41] LABS: CHLORIDE 103 mmol/L (98-107)
[2020-07-29 20:47] LABS: ANION GAP 20 (5-19)
[2020-07-29] MEDS ORDERED: NORMAL SALINE 250 ML IV ONE (23:46)
[2020-07-30] MEDS: PIPERACILLIN/TAZOBACTAM 2.25 GM VIAL IV SCH ×4 (01:24→17:05)
[2020-07-30] MEDS ORDERED: ONDANSETRON HCL INJ/PF 4 MG/2 ML SDV IV ONE ×2 (04:43→12:35)
[2020-07-30] MEDS ORDERED: PIPERACILLIN/TAZOBACTAM 3.375 GM VIAL IV ONE (07:26)
[2020-07-30] MEDS ORDERED: PHENYLEPHRINE HCL INJ/PF 10 MG/1 ML SDV ONE (09:11)
[2020-07-30] MEDS ORDERED: SUCCINYLCHOLINE CHLORIDE INJ 200 MG/10 ML VIAL ONE (09:11)
[2020-07-30 09:36] LABS: ABSOLUTE LYMPHOCYTES (AUTO) 0.8 10^3/uL (0.5-4.7); ABSOLUTE MONOCYTES (AUTO) 0.5 10^3/uL (0.1-1.4); ABSOLUTE NEUT (AUTO) 13.1 10^3/uL (1.7-8.2); BASOPHILS % (AUTO) 0.1 % (0-2); HEMATOCRIT 27.6 % (37.9-51.0); HEMOGLOBIN 9.1 g/dL (13.5-17.0); LYMPHOCYTES % (AUTO) 5.9 % (13-45); MEAN CORPUSCULAR HEMOGLOBIN 29.9 pg (27.0-33.4); MEAN CORPUSCULAR VOLUME 91 fl (80-97); MONOCYTES % (AUTO) 3.2 % (3-13); PLATELET COUNT 356 10^3/uL (150-450); RED BLOOD COUNT 3.04 10^6/uL (4.35-5.55); RED CELL DISTRIBUTION WIDTH 14.9 % (11.5-14.0); SEGMENTED NEUTROPHILS % (AUTO) 90.8 % (42-78); TOTAL CELLS COUNTED % (AUTO) 100 %; WHITE BLOOD COUNT 14.4 10^3/uL (4.0-10.5)
[2020-07-30 10:00] LABS: ALBUMIN 2.8 g/dL (3.5-5.0); ALKALINE PHOSPHATASE 358 U/L (38-126); ASPARTATE AMINO TRANSFERASE 47 U/L (17-59); BILIRUBIN,DIRECT 2.5 mg/dL (0.0-0.4); BILIRUBIN,TOTAL 2.8 mg/dL (0.2-1.3); BLOOD UREA NITROGEN 79 mg/dL (7-20); CALCIUM 7.4 mg/dL (8.4-10.2); GLUCOSE 206 mg/dL (75-110); POTASSIUM 3.7 mmol/L (3.6-5.0); TOTAL PROTEIN 5.7 g/dL (6.3-8.2)
[2020-07-30 10:05] LABS: CARBON DIOXIDE 12 mmol/L (22-30); CHLORIDE 103 mmol/L (98-107)
[2020-07-30 10:10] LABS: ANION GAP 24 (5-19)
[2020-07-30] MEDS ORDERED: INSULIN REG, HUMAN 100 UNIT/ML 3 ML VIAL (PYX) IV ONE (13:37)
[2020-07-30] MEDS ORDERED: GLUCAGON,HUMAN RECOMB 1 MG INJ ONE (16:23)
[2020-07-30] MEDS ORDERED: EPINEPHRINE INJ 1 MG/10 ML DISP.SYRIN ONE (16:23)
[2020-07-30] MEDS ORDERED: ONDANSETRON HCL INJ/PF 4 MG/2 ML SDV IV PRN (17:02)
[2020-07-30] MEDS ORDERED: ACETAMINOPHEN 325 MG TABLET PO PRN (17:02)
[2020-07-30] MEDS ORDERED: MAG HYDROX/AL HYDROX/SIMETH SUSP 30 ML UDCUP PO PRN (17:02)
[2020-07-30] MEDS ORDERED: PROPOFOL INJ 200 MG/20 ML VIAL IV ONE (17:09)
[2020-07-30] MEDS ORDERED: FENTANYL CITRATE INJ/PF 100 MCG/2 ML AMPUL ONE (17:09)
--- NOTE | 2020-07-30 17:57 | PDOC CONSULTATION ---
Consultation Consult Date: 07/30/20 Provider Consulted: LEON STUART Consult reason:: Choledocholithiasis and cholelithiasis History of Present Illness Admission Date/PCP: 07/30/20 13:37 JOSE HALL MD History of Present Illness: TINA YUAN is a 70 year old male, who went into the emergency room 2 days ago with vague vague complaint of malaise, fall with hypotension, near syncopal episode, found to have leukocytosis as well as chronic anemia (H&H = 0.0 and 23.8, respectively). Further evaluation revealed elevated bilirubin of 4.8 and elevation of transaminase and alkaline phosphatase. A CT scan abdomen pelvis was done revealing a cholelithiasis and questionable choledocholithiasis intrahepatic biliary dilatation as per possible Mirizzi syndrome. An MRCP was done yesterday which revealed a 1 cm stone in the common bile duct causing intra-hepatic duct dilatation. Ultrasound of the gallbladder done on July 28, 2020 reveals a common bile duct slightly dilated approximately 7 mm. The patient was initially scheduled to be transferred to an outside institution to undergo an ERCP there and has been waiting in the emergency room since July 28, 2020. However, the transfer never occurred and our transportation consultant has agreed to perform the ERCP tonight, July 30, 2020. During the emergency room stay, the patient bilirubin has improved to the current 02.8, normalization of the ALT, and decrease of the AST and alkaline phosphatase., His WBC is elevated at 14,000. Past Medical History Cardiac Medical History: Reports: Hyperlipidema, Hypertension Denies: Coronary Artery Disease, Myocardial Infarction Pulmonary Medical History: Denies: Asthma, Bronchitis, Chronic Obstructive Pulmonary Disease (COPD), Pneumonia Neurological Medical History: Denies: Seizures Endocrine Medical History: Reports: Diabetes Mellitus Type 2 Musculoskeltal Medical History: Reports: Arthritis Hematology: Denies: Anemia Past Surgical History Past Surgical History: Reports: Orthopedic Surgery - right shoulder Social History Smoking Status: Never Smoker Electronic Cigarette use?: No - Advance Directive Resuscitation Status: Full Code Family History Family History: Reviewed & Not Pertinent Parental Family History Reviewed: No Children Family History Reviewed: No Sibling(s) Family History Reviewed.: No Medication/Allergy Home Medications: Simvastatin [Zocor 20 mg Tablet] 40 mg PO QHS 09/08/12 Clonidine HCl [Catapres 0.1 mg Tablet] 0.2 mg PO BID 03/21/13 Benazepril HCl 40 mg PO DAILY 07/29/15 Amlodipine Besylate [Norvasc 10 mg Tablet] 10 mg PO DAILY 07/30/20 Atenolol [Tenormin 50 mg Tablet] 50 mg PO DAILY 07/30/20 Glipizide [Glucotrol] 5 mg PO BID 07/30/20 Sodium Bicarbonate [Sodium Bicarbonate 650 mg Tablet] 650 mg PO TID 07/30/20 Allergies/Adverse Reactions: No Known Allergies Allergy (Verified 01/24/19 09:32) Physical Exam Vital Signs: Temp Pulse Resp BP Pulse Ox 98.1 F 80 25 H 154/90 H 98 07/30/20 15:11 07/30/20 15:11 07/30/20 17:01 07/30/20 17:01 07/30/20 17:01 Intake & Output 07/29/20 07/30/20 07/31/20 06:59 06:59 06:59 Intake Total 2750 1000 Output Total 200 Balance 2550 1000 Weight 61.235 kg General appearance: PRESENT: no acute distress, thin Head exam: PRESENT: atraumatic, normocephalic Eye exam: PRESENT: EOMI Mouth exam: PRESENT: moist, neck supple Teeth exam: PRESENT: edentulous Neck exam: PRESENT: full ROM Respiratory exam: PRESENT: clear to auscultation deven Cardiovascular exam: PRESENT: RRR GI/Abdominal exam: PRESENT: soft, tenderness - Slightly in the right upper quadrant, no scars noted Rectal exam: PRESENT: deferred Extremities exam: PRESENT: full ROM Musculoskeletal exam: PRESENT: full ROM Neurological exam: PRESENT: awake, CN II-XII grossly intact Psychiatric exam: PRESENT: appropriate affect Skin exam: PRESENT: warm Results Laboratory Results: 07/30/20 09:15 07/30/20 09:15 07/29/20 07/29/20 07/30/20 20:00 20:00 09:15 WBC 12.8 H 14.4 H RBC 3.02 L 3.04 L Hgb 9.3 L 9.1 L Hct 27.1 L 27.6 L MCV 90 91 MCH 31.0 29.9 MCHC 34.5 33.0 RDW 15.1 H 14.9 H Plt Count 326 356 Seg Neutrophils % 87.2 H 90.8 H Sodium 137.2 Potassium 4.0 Chloride 103 Carbon Dioxide 14 L Anion Gap 20 H BUN 76 H Creatinine 5.64 H Est GFR ( Amer) 12 L Glucose 231 H Calcium 8.3 L Total Bilirubin 3.6 H AST 83 H Alkaline Phosphatase 477 H Total Protein 6.3 Albumin 3.4 L 07/30/20 09:15 WBC RBC Hgb Hct MCV MCH MCHC RDW Plt Count Seg Neutrophils % Sodium 138.7 Potassium 3.7 Chloride 103 Carbon Dioxide 12 L Anion Gap 24 H BUN 79 H Creatinine 5.35 H Est GFR ( Amer) 13 L Glucose 206 H Calcium 7.4 L Total Bilirubin 2.8 H AST 47 Alkaline Phosphatase 358 H Total Protein 5.7 L Albumin 2.8 L 07/28/20 18:30 Troponin I 0.023 Impressions: Chest X-Ray 07/28/20 19:12 IMPRESSION: No evidence of acute cardiopulmonary process. Abdomen/Pelvis CT 07/28/20 19:15 IMPRESSION: Large calculus located within the gallbladder neck or cystic duct with associated mild intrahepatic biliary duct dilatation, raising the possibility of Mirizzi syndrome. Correlate for obstructive laboratories and suggest confirmation with MRCP. At that time, the additional calcification located about the liver hilum can be reassessed as it is indeterminate. Findings compatible with chronic calcific pancreatitis. However, the pancreatic appears relatively normal in bulk, similar to the previous exam dated 07/29/2015. Small amount of subhepatic free fluid. Small hiatal hernia with circumferential distal esophageal wall thickening. Correlate for esophagitis. TECHNICAL DOCUMENTATION: Quality ID # [id number]: Final reports with documentation of one or more dose reduction techniques (e.g., Automated exposure control, adjustment of the mA and/or kV according to patient size, use of iterative reconstruction technique) copyright 2011 [employer]- All Rights Reserved Abdomen Ultrasound 07/28/20 20:00 IMPRESSION: 1. Gallstones, gallbladder wall thickening, intrahepatic biliary dilatation and nonspecific possible inflammatory material surrounding the gallbladder. These findings are suspicious for acute cholecystitis. Gray's sign was negative but this does not exclude acute cholecystitis. 2. Common bile duct is only mildly dilated. . Question common bile duct stones. 3. Fatty liver. Low position of an atrophic right kidney in the pelvis. Abdomen MRI 07/29/20 04:06 IMPRESSION: 1.1 cm calcific density appears to localize to the common bile duct. The gallbladder is largely decompressed and mild intrahepatic biliary dilatation persists. Associated right upper quadrant inflammatory changes. Other chronic and incidental findings as detailed above. Assessment & Plan - Diagnosis (1) Chronic cholecystitis due to cholelithiasis with choledocholithiasis Is this a current diagnosis for this admission?: Yes (2) Chronic anemia Is this a current diagnosis for this admission?: Yes (3) Chronic renal failure Qualifiers: Chronic kidney disease stage: unspecified stage Qualified Code(s): N18.9 - Chronic kidney disease, unspecified Is this a current diagnosis for this admission?: Yes (4) Near syncope Is this a current diagnosis for this admission?: Yes - Plan Summary Plan Summary: Assessment: Near syncopal episode at home Emergency room evaluation reveals chronic anemia (H&H = 9.1 and 27.6, respectively) Chronic renal failure (BUN and creatinine = 75 and 5.3, respectively), the patient is oliguric currently not on hemodialysis Elevated bilirubin 4.8 on initial presentation in the ED with elevation of AST ALT alkaline phosphatase Currently, the bilirubin has decreased to 2.8 MRCP reveals a 1 cm stone in the common bile duct CT scan of the abdomen and ultrasound reveals a common bile duct of 7 mm with intrahepatic biliary duct dilatation Leukocytosis 14,000 Plan: Patient to be admitted by the hospitalist service alfa ERCP to be performed by the GI service alfa We will follow the patient during this hospitalization and plan to perform laparoscopic cystectomy when the patient is clinically stable
[2020-07-30] MEDS ORDERED: MORPHINE SULFATE 10 MG/ML INJ IV PRN (19:32)
[2020-07-30] MEDS ORDERED: DIPHENHYDRAMINE HCL 50 MG/ML VIAL IV PRN (19:32)
[2020-07-30] MEDS ORDERED: PROMETHAZINE HCL INJ 25 MG/1 ML VIAL IV PRN ×2 (19:32)
[2020-07-30] MEDS ORDERED: OXYCODONE-ACETAMINOPHEN 5-325 MG TABLET PO PRN ×2 (19:32)
[2020-07-30] MEDS ORDERED: FENTANYL CITRATE INJ/PF 100 MCG/2 ML AMPUL IV PRN ×3 (19:32)
[2020-07-30] MEDS ORDERED: MEPERIDINE HCL/PF INJ 25 MG/1 ML DISP.SYRIN IV PRN (19:32)
--- NOTE | 2020-07-30 20:16 | PDOC CONSULTATION ---
Consultation Consult Date: 07/30/20 Provider Consulted: JOLENE XAVIER History of Present Illness Admission Date/PCP: 07/30/20 13:37 JOSE HALL MD History of Present Illness: TINA YUAN is a 70 year old male Patient who presented to the emergency room 2 days ago with jaundice, gallstones, and choledocholithiasis shown on MRCP. He presented to the emergency room with near syncope dizziness and malaise. He has also been having some abdominal discomfort. On 07/28/2020 his white count was 14 with a left shift and his bilirubin was 4.8 with elevated transaminases and alkaline phosphatase. Lipase was normal. Today his bilirubin is down to 2.8 with reduction in his transaminases also. He had an MRCP on 07/29/2020 showing a 1.1 cm calcific density localized within the common bile duct. The intrahepatic ducts were mildly dilated and his gallbladder was largely decompressed. Abdominal ultrasound on 07/28/2020 showed a thickened gallbladder wall with intrahepatic biliary dilation. The plan was to transfer him to [facility] but a bed has not been available in the last 36 hours. Past Medical History Cardiac Medical History: Reports: Hyperlipidema, Hypertension Denies: Coronary Artery Disease, Myocardial Infarction Pulmonary Medical History: Denies: Asthma, Bronchitis, Chronic Obstructive Pulmonary Disease (COPD), Pneumonia Neurological Medical History: Denies: Seizures Endocrine Medical History: Reports: Diabetes Mellitus Type 2 Musculoskeltal Medical History: Reports: Arthritis Hematology: Denies: Anemia Past Surgical History Past Surgical History: Reports: Orthopedic Surgery - right shoulder Social History Lives with: Alone Smoking Status: Never Smoker Electronic Cigarette use?: No - Advance Directive Resuscitation Status: Full Code Family History Family History: Reviewed & Not Pertinent Parental Family History Reviewed: No Children Family History Reviewed: NA Sibling(s) Family History Reviewed.: NA Medication/Allergy Home Medications: Simvastatin [Zocor 20 mg Tablet] 40 mg PO QHS 09/08/12 Clonidine HCl [Catapres 0.1 mg Tablet] 0.2 mg PO BID 03/21/13 Benazepril HCl 40 mg PO DAILY 07/29/15 Amlodipine Besylate [Norvasc 10 mg Tablet] 10 mg PO DAILY 07/30/20 Atenolol [Tenormin 50 mg Tablet] 50 mg PO DAILY 07/30/20 Glipizide [Glucotrol] 5 mg PO BID 07/30/20 Sodium Bicarbonate [Sodium Bicarbonate 650 mg Tablet] 650 mg PO TID 07/30/20 Allergies/Adverse Reactions: No Known Allergies Allergy (Verified 01/24/19 09:32) Review of Systems All systems: reviewed and no additional remarkable complaints except as stated Physical Exam Vital Signs: Temp Pulse Resp BP Pulse Ox 98.1 F 80 25 H 154/90 H 98 07/30/20 15:11 07/30/20 15:11 07/30/20 17:01 07/30/20 17:01 07/30/20 17:01 Intake & Output 07/29/20 07/30/20 07/31/20 06:59 06:59 06:59 Intake Total 2750 1000 Output Total 200 Balance 2550 1000 Weight 61.235 kg Exam: General: Patient is alert and looks well. HEENT: There is no pallor but he is jaundiced. PERRLA. Oropharynx normal Respiratory: No chest deformity. No respiratory distress. Chest wall palpitation was unremarkable. Breath sounds were normal Cardiovascular: Heart sounds 1 and 2 normal with no murmurs. Abdominal: Not distended. There is tenderness in the epigastrium with mild guarding. Liver and spleen not palpable. No ascites demonstrated. Bowel sounds active. Rectal examination was deferred. Extremities: No edema Neurological: Alert and oriented x4. Grossly nonfocal. Normal speech Skin: No significant rash Psychological: Normal affect Results Laboratory Results: 07/30/20 09:15 07/30/20 09:15 07/29/20 07/29/20 07/30/20 20:00 20:00 09:15 WBC 12.8 H 14.4 H RBC 3.02 L 3.04 L Hgb 9.3 L 9.1 L Hct 27.1 L 27.6 L MCV 90 91 MCH 31.0 29.9 MCHC 34.5 33.0 RDW 15.1 H 14.9 H Plt Count 326 356 Seg Neutrophils % 87.2 H 90.8 H Sodium 137.2 Potassium 4.0 Chloride 103 Carbon Dioxide 14 L Anion Gap 20 H BUN 76 H Creatinine 5.64 H Est GFR ( Amer) 12 L Glucose 231 H Calcium 8.3 L Total Bilirubin 3.6 H AST 83 H Alkaline Phosphatase 477 H Total Protein 6.3 Albumin 3.4 L 07/30/20 09:15 WBC RBC Hgb Hct MCV MCH MCHC RDW Plt Count Seg Neutrophils % Sodium 138.7 Potassium 3.7 Chloride 103 Carbon Dioxide 12 L Anion Gap 24 H BUN 79 H Creatinine 5.35 H Est GFR ( Amer) 13 L Glucose 206 H Calcium 7.4 L Total Bilirubin 2.8 H AST 47 Alkaline Phosphatase 358 H Total Protein 5.7 L Albumin 2.8 L 07/28/20 18:30 Troponin I 0.023 Impressions: Chest X-Ray 07/28/20 19:12 IMPRESSION: No evidence of acute cardiopulmonary process. Abdomen/Pelvis CT 07/28/20 19:15 IMPRESSION: Large calculus located within the gallbladder neck or cystic duct with associated mild intrahepatic biliary duct dilatation, raising the possibility of Mirizzi syndrome. Correlate for obstructive laboratories and suggest confirmation with MRCP. At that time, the additional calcification located about the liver hilum can be reassessed as it is indeterminate. Findings compatible with chronic calcific pancreatitis. However, the pancreatic appears relatively normal in bulk, similar to the previous exam dated 07/29/2015. Small amount of subhepatic free fluid. Small hiatal hernia with circumferential distal esophageal wall thickening. Correlate for esophagitis. TECHNICAL DOCUMENTATION: Quality ID # 436: Final reports with documentation of one or more dose reduction techniques (e.g., Automated exposure control, adjustment of the mA and/or kV according to patient size, use of iterative reconstruction technique) copyright 2011 [employer]- All Rights Reserved Abdomen Ultrasound 07/28/20 20:00 IMPRESSION: 1. Gallstones, gallbladder wall thickening, intrahepatic biliary dilatation and nonspecific possible inflammatory material surrounding the gallbladder. These findings are suspicious for acute cholecystitis. Gray's sign was negative but this does not exclude acute cholecystitis. 2. Common bile duct is only mildly dilated. . Question common bile duct stones. 3. Fatty liver. Low position of an atrophic right kidney in the pelvis. Abdomen MRI 07/29/20 04:06 IMPRESSION: 1.1 cm calcific density appears to localize to the common bile duct. The gallbladder is largely decompressed and mild intrahepatic biliary dilatation persists. Associated right upper quadrant inflammatory changes. Other chronic and incidental findings as detailed above. Assessment & Plan - Diagnosis (1) Choledocholithiasis Is this a current diagnosis for this admission?: Yes Plan: He has symptoms, blood work, and imaging findings consistent with choledocholithiasis. He also has evidence of cholecystitis on ultrasound and a 1 cm stone on MRCP. The need for an ERCP was explained to the patient including the risk and benefit and he is in agreement. (3) Chronic renal failure Qualifiers: Chronic kidney disease stage: unspecified stage Qualified Code(s): N18.9 - Chronic kidney disease, unspecified Is this a current diagnosis for this admission?: Yes (4) Nausea and vomiting Qualifiers: Vomiting type: unspecified Vomiting Intractability: unspecified Qualified Code(s): R11.2 - Nausea with vomiting, unspecified
--- NOTE | 2020-07-30 20:20 | PDOC H&P ---
History of Present Illness Admission Date/PCP: 07/30/20 13:37 JOSE HALL MD Patient complains of: nausea/vomiting/abd pain History of Present Illness: TINA YUAN is a 70 year old male with HTN, HLD, DM2, CKD who presented on 07/28/2020 with fatigue, malaise, anorexia, nausea/vomiting/diarrhea x2 days and near-syncope resulting in fall on the day of admission. In the ED, he was found to be hypotensive, have leukocytosis, elevated bilirubin of 4.8 and elevation of transaminases and alkaline phosphatase. CT abdomen pelvis showed cholelithiasis and questionable choledocholithiasis. MRCP revealed a 1 cm stone in the common bile duct causing intra-hepatic duct dilatation. He was initially scheduled to be transferred to [facility] to undergo ERCP there and has been waiting in the emergency room for transfer; however, the transfer never occurred and Dr. Rodriguez has now agreed to perform the ERCP tonight here at [facility] instead. The hospitalist service was therefore contacted for admission. Past Medical History Cardiac Medical History: Reports: Hyperlipidema, Hypertension Denies: Coronary Artery Disease, Myocardial Infarction Pulmonary Medical History: Denies: Asthma, Bronchitis, Chronic Obstructive Pulmonary Disease (COPD), Pneumonia Neurological Medical History: Denies: Seizures Endocrine Medical History: Reports: Diabetes Mellitus Type 2 Musculoskeltal Medical History: Reports: Arthritis Hematology: Denies: Anemia Past Surgical History Past Surgical History: Reports: Orthopedic Surgery - right shoulder Social History Information Source: Patient Lives with: Alone Smoking Status: Never Smoker Electronic Cigarette use?: No - Advance Directive Resuscitation Status: Full Code Family History Family History: Reviewed & Not Pertinent Parental Family History Reviewed: Yes Children Family History Reviewed: Yes Sibling(s) Family History Reviewed.: Yes Medication/Allergy Home Medications: RX: Simvastatin [Zocor 20 mg Tablet] 40 mg PO QHS 09/08/12 RX: Clonidine HCl [Catapres 0.1 mg Tablet] 0.2 mg PO BID 03/21/13 RX: Benazepril HCl 40 mg PO DAILY 07/29/15 Amlodipine Besylate [Norvasc 10 mg Tablet] 10 mg PO DAILY 07/30/20 Atenolol [Tenormin 50 mg Tablet] 50 mg PO DAILY 07/30/20 Glipizide [Glucotrol] 5 mg PO BID 07/30/20 Sodium Bicarbonate [Sodium Bicarbonate 650 mg Tablet] 650 mg PO TID 07/30/20 Allergies/Adverse Reactions: No Known Allergies Allergy (Verified 01/24/19 09:32) Review of Systems Constitutional: PRESENT: anorexia, fatigue. ABSENT: fever(s) Cardiovascular: ABSENT: chest pain, orthropnea Respiratory: ABSENT: dyspnea Gastrointestinal: PRESENT: abdominal pain, diarrhea, nausea, vomiting Genitourinary: ABSENT: dysuria Musculoskeletal: ABSENT: back pain Integumentary: ABSENT: diaphoresis Neurological: PRESENT: dizziness, weakness. ABSENT: syncope Endocrine: ABSENT: polyuria Physical Exam Vital Signs: Temp Pulse Resp BP Pulse Ox 98.1 F 80 25 H 154/90 H 98 07/30/20 15:11 07/30/20 15:11 07/30/20 17:01 07/30/20 17:01 07/30/20 17:01 Intake & Output 07/29/20 07/30/20 07/31/20 06:59 06:59 06:59 Intake Total 2750 1000 Output Total 200 Balance 2550 1000 Weight 61.235 kg General appearance: PRESENT: no acute distress, cooperative Eye exam: PRESENT: scleral icterus Mouth exam: PRESENT: dry mucosa Throat exam: ABSENT: post pharyngeal erythema Neck exam: ABSENT: JVD Respiratory exam: PRESENT: clear to auscultation deven, unlabored Cardiovascular exam: PRESENT: RRR GI/Abdominal exam: PRESENT: normal bowel sounds, soft, tenderness. ABSENT: guarding, rebound, rigid Rectal exam: PRESENT: deferred Extremities exam: ABSENT: pedal edema Neurological exam: PRESENT: alert, awake, oriented to person, oriented to place, oriented to time, oriented to situation Psychiatric exam: PRESENT: appropriate affect Skin exam: ABSENT: rash Results Laboratory Results: 07/30/20 09:15 07/30/20 09:15 07/29/20 07/29/20 07/30/20 20:00 20:00 09:15 WBC 12.8 H 14.4 H RBC 3.02 L 3.04 L Hgb 9.3 L 9.1 L Hct 27.1 L 27.6 L MCV 90 91 MCH 31.0 29.9 MCHC 34.5 33.0 RDW 15.1 H 14.9 H Plt Count 326 356 Seg Neutrophils % 87.2 H 90.8 H Sodium 137.2 Potassium 4.0 Chloride 103 Carbon Dioxide 14 L Anion Gap 20 H BUN 76 H Creatinine 5.64 H Est GFR ( Amer) 12 L Glucose 231 H Calcium 8.3 L Total Bilirubin 3.6 H AST 83 H Alkaline Phosphatase 477 H Total Protein 6.3 Albumin 3.4 L 07/30/20 09:15 WBC RBC Hgb Hct MCV MCH MCHC RDW Plt Count Seg Neutrophils % Sodium 138.7 Potassium 3.7 Chloride 103 Carbon Dioxide 12 L Anion Gap 24 H BUN 79 H Creatinine 5.35 H Est GFR ( Amer) 13 L Glucose 206 H Calcium 7.4 L Total Bilirubin 2.8 H AST 47 Alkaline Phosphatase 358 H Total Protein 5.7 L Albumin 2.8 L 07/28/20 18:30 Troponin I 0.023 Impressions: Chest X-Ray 07/28/20 19:12 IMPRESSION: No evidence of acute cardiopulmonary process. Abdomen/Pelvis CT 07/28/20 19:15 IMPRESSION: Large calculus located within the gallbladder neck or cystic duct with associated mild intrahepatic biliary duct dilatation, raising the possibility of Mirizzi syndrome. Correlate for obstructive laboratories and suggest confirmation with MRCP. At that time, the additional calcification located about the liver hilum can be reassessed as it is indeterminate. Findings compatible with chronic calcific pancreatitis. However, the pancreatic appears relatively normal in bulk, similar to the previous exam dated 07/29/2015. Small amount of subhepatic free fluid. Small hiatal hernia with circumferential distal esophageal wall thickening. Correlate for esophagitis. TECHNICAL DOCUMENTATION: Quality ID # [id number]: Final reports with documentation of one or more dose reduction techniques (e.g., Automated exposure control, adjustment of the mA and/or kV according to patient size, use of iterative reconstruction technique) copyright 2011 [employer]- All Rights Reserved Abdomen Ultrasound 07/28/20 20:00 IMPRESSION: 1. Gallstones, gallbladder wall thickening, intrahepatic biliary dilatation and nonspecific possible inflammatory material surrounding the gallbladder. These findings are suspicious for acute cholecystitis. Gray's sign was negative but this does not exclude acute cholecystitis. 2. Common bile duct is only mildly dilated. . Question common bile duct stones. 3. Fatty liver. Low position of an atrophic right kidney in the pelvis. Abdomen MRI 07/29/20 04:06 IMPRESSION: 1.1 cm calcific density appears to localize to the common bile duct. The gallbladder is largely decompressed and mild intrahepatic biliary dilatation persists. Associated right upper quadrant inflammatory changes. Other chronic and incidental findings as detailed above. Assessment and Plan - Diagnosis (1) Fall Qualifiers: Encounter type: initial encounter Qualified Code(s): W19.XXXA - Unspecified fall, initial encounter Is this a current diagnosis for this admission?: Yes (2) GAURAV (acute kidney injury) Is this a current diagnosis for this admission?: Yes (3) Metabolic acidosis Is this a current diagnosis for this admission?: Yes (4) Neutrophilic leukocytosis Is this a current diagnosis for this admission?: Yes (5) Essential hypertension Is this a current diagnosis for this admission?: Yes (6) Abnormal findings on imaging of biliary tract Is this a current diagnosis for this admission?: Yes (7) Choledocholithiasis Is this a current diagnosis for this admission?: Yes (8) Chronic anemia Is this a current diagnosis for this admission?: Yes (9) Chronic cholecystitis due to cholelithiasis with choledocholithiasis Is this a current diagnosis for this admission?: Yes (10) Chronic renal failure Qualifiers: Chronic kidney disease stage: unspecified stage Qualified Code(s): N18.9 - Chronic kidney disease, unspecified Is this a current diagnosis for this admission?: Yes (11) Nausea and vomiting Qualifiers: Vomiting type: unspecified Vomiting Intractability: unspecified Qualified Code(s): R11.2 - Nausea with vomiting, unspecified Is this a current diagnosis for this admission?: Yes (12) Near syncope Is this a current diagnosis for this admission?: Yes - Plan Summary Summary: TINA YUAN is a 70 year old male with HTN, HLD, DM2, CKD who presented on 07/28/2020 with fatigue, malaise, anorexia, nausea/vomiting/diarrhea x2 days and near-syncope resulting in fall on the day of admission. In the ED, he was found to be hypotensive, have leukocytosis, elevated bilirubin of 4.8 and elevation of transaminases and alkaline phosphatase. CT abdomen pelvis showed cholelithiasis and questionable choledocholithiasis. MRCP revealed a 1 cm stone in the common bile duct causing intra-hepatic duct dilatation. He was initially scheduled to be transferred to [facility] to undergo ERCP there and has been waiting in the emergency room for transfer; however, the transfer never occurred and Dr. Rodriguez has now agreed to perform the ERCP tonight here at [facility] instead. The hospitalist service was therefore contacted for admission. Patient will be started on IVF and antibiotics with cefazolin/metronidazole. He remains NPO for ERCP tonight. GI consulted. General surgery consulted for eventual lap pete. GAURAV on CKD due to dehydration and N/V, will consult nephrology. HTN uncontrolled, restart home medications. Repeat CMP/CBC in AM. - Time Time Spent with patient: 35 or more minutes Anticipated Discharge Disposition: Home, Self Care Anticipated Discharge Timeframe: within 48 hours
[2020-07-30] MEDS ORDERED: GLUCAGON,HUMAN RECOMB 1 MG INJ IM PRN (20:26)
[2020-07-30] MEDS ORDERED: DEXTROSE 50%-WATER 25 GM/50 ML DISP.SYRIN IV PRN ×2 (20:26)
[2020-07-30] MEDS ORDERED: DEXTROSE 40% GEL 15 GM TUBE PO PRN ×2 (20:26)
--- NOTE | 2020-07-30 20:37 | Operative Report ---
Operative Report DATE OF SURGERY: 07/30/20 Operative Report: Pre-op diagnosis: Jaundice, gallstones and choledocholithiasis on MRCP Post-op diagnosis: 1. Mirizzi syndrome/impacted cystic duct stone 2. Cystic duct insertion at the ampulla 3. Multiple ulcers involving second, and third part of duodenum 4. Very difficult procedure Surgery: ERCP with sphincterotomy and balloon sludge extraction Medications: As per anesthesia Tissue removed: None Procedure: After informed consent obtained from patient, patient was placed under general anesthesia. The ERCP endoscope was then inserted into the esophagus blindly and advanced into the stomach. There was diffuse blackish exudate in the distal third of the esophagus. The duodenum was entered a and multiple superficial ulcerations were noted all over the second, and third part of duodenum. It was very difficult finding the ampulla. I did switch to an EGD scope for better evaluation of the duodenum before reinserting the ERCP scope. Eventually the ampulla was identified. Using the triple-lumen sphincterotomy catheter the pancreatic duct was initially cannulated and a partial pancreatogram was normal. What appears to be the common bile duct was then cannulated after multiple trials and a cholangiogram obtained. There was a round opacity noted in the middle part of the duct and it was difficult getting the guidewire past the opacity. There was no evidence of bile flow for a long time but eventually some bile and sludge was seen coming out of the bile duct. Sphincterotomy was then performed using the endocut mode. The catheter was removed over the guidewire before a 9-12 mm balloon catheter was inserted. Again it was difficult getting the balloon catheter past the impacted stone. Eventually I was able to get the balloon through and it was then inflated up to 12 mm. The stone was impacted and I was not able to pull it out of the duct. After injecting more contrast proximal to the obstruction contrast was seen opacifying another duct and the intrahepatic ducts. Apparently I had been in the cystic duct and the gallbladder indicating a very low insertion cystic duct. The balloon was deflated and the catheter was removed. Patient tolerated procedure well. Findings Common bile duct: Partially opacified but likely partly obstructed due to an impacted cystic duct stone. Intrahepatic ducts: Mildly dilated Pancreatic duct: Normal Plan: Proceed with cholecystectomy and intraoperative cholangiogram. Start PPI twice a day and repeat endoscopy in 2 months. OPERATION: .
[2020-07-30] MEDS: CEFAZOLIN 1 GM/D5W RTU 1 GM/50 ML RTUPB IV SCH (22:37)
[2020-07-30] MEDS: METRONIDAZOLE 500 MG/NS RTU 500 MG/100 ML RTUPB IV SCH (22:38)
[2020-07-30] MEDS: INSULIN LISPRO 100 UNIT/ML 3 ML VIAL SUBCUT SCH (23:09)
[2020-07-30] MEDS: SODIUM BICARBONATE 650 MG TABLET PO SCH (23:17)
[2020-07-30] MEDS: CLONIDINE HCL 0.1 MG TABLET PO SCH (23:17)
[2020-07-31] MEDS: HEPARIN SOD (PORCINE) 5,000 UNIT/ML 1 ML VIAL SUBCUT SCH ×3 (05:29→21:54)
[2020-07-31] MEDS: CEFAZOLIN 1 GM/D5W RTU 1 GM/50 ML RTUPB IV SCH ×3 (05:38→22:04)
[2020-07-31] MEDS: METRONIDAZOLE 500 MG/NS RTU 500 MG/100 ML RTUPB IV SCH ×3 (05:39→22:04)
[2020-07-31 05:45] LABS: HEMATOCRIT 25.1 % (37.9-51.0); HEMOGLOBIN 8.5 g/dL (13.5-17.0); MEAN CORPUSCULAR HEMOGLOBIN 30.7 pg (27.0-33.4); MEAN CORPUSCULAR VOLUME 90 fl (80-97); PLATELET COUNT 314 10^3/uL (150-450); RED BLOOD COUNT 2.78 10^6/uL (4.35-5.55); RED CELL DISTRIBUTION WIDTH 15.1 % (11.5-14.0); WHITE BLOOD COUNT 11.1 10^3/uL (4.0-10.5)
[2020-07-31 06:15] LABS: ALBUMIN 2.9 g/dL (3.5-5.0); ALKALINE PHOSPHATASE 316 U/L (38-126); ASPARTATE AMINO TRANSFERASE 39 U/L (17-59); BILIRUBIN,DIRECT 2.3 mg/dL (0.0-0.4); BILIRUBIN,TOTAL 2.5 mg/dL (0.2-1.3); GLUCOSE 168 mg/dL (75-110); POTASSIUM 4.1 mmol/L (3.6-5.0); TOTAL PROTEIN 5.5 g/dL (6.3-8.2)
[2020-07-31 06:20] LABS: CARBON DIOXIDE 13 mmol/L (22-30); CHLORIDE 100 mmol/L (98-107)
[2020-07-31 06:36] LABS: BLOOD UREA NITROGEN 108 mg/dL (7-20)
[2020-07-31 06:39] LABS: ANION GAP 24 (5-19)
[2020-07-31] MEDS ORDERED: INFLUENZA QUAD (6MOS+) 2020-21 VAC 0.5 ML SYR IM ONE (08:00)
[2020-07-31] MEDS: DEXTROSE 5%-WATER 1000 ML 1,000 ML with SODIUM BICARBONATE 150 MEQ IV PRN ×2 (08:13)
[2020-07-31] MEDS: INSULIN LISPRO 100 UNIT/ML 3 ML VIAL SUBCUT SCH ×4 (08:13→22:04)
--- NOTE | 2020-07-31 08:18 | RADIOLOGY REPORT (SQ) ---
EXAM DESCRIPTION: NO CHG FLUORO; ENDO CATH/BILIARY DUCT IMAGES COMPLETED DATE/TIME: 07/30/2020 8:21 pm REASON FOR STUDY: ERCP COMPARISON: None. FLUOROSCOPY TIME: 15.3 minutes. 12 images saved to PACS. TECHNIQUE: Intra-operative images acquired during surgical procedure to evaluate progress. NUMBER OF IMAGES: 12 LIMITATIONS: None. FINDINGS: Patient undergoing ERCP. Initial images suggest duct dilatation with filling defects. Fi nal images show persistent duct dilatation. Please correlate with operative note. IMPRESSION: IMAGE(S) OBTAINED DURING PROCEDURE. COMMENT: Quality ID 145: Final reports for procedures using fluoroscopy that document radiation exp osure indices, or exposure time and number of fluorographic images (if radiation exposure indices are not available) Please consult full operative report of the attending physician for description of the procedure. TECHNICAL DOCUMENTATION: JOB ID: [id number] 2010 [employer]- All Rights Reserved Reading location - IP/workstation name: [email or web address]
--- NOTE | 2020-07-31 08:18 | RADIOLOGY REPORT (SQ) ---
EXAM DESCRIPTION: NO CHG FLUORO; ENDO CATH/BILIARY DUCT IMAGES COMPLETED DATE/TIME: 07/30/2020 8:21 pm REASON FOR STUDY: ERCP COMPARISON: None. FLUOROSCOPY TIME: 15.3 minutes. 12 images saved to PACS. TECHNIQUE: Intra-operative images acquired during surgical procedure to evaluate progress. NUMBER OF IMAGES: 12 LIMITATIONS: None. FINDINGS: Patient undergoing ERCP. Initial images suggest duct dilatation with filling defects. Fi nal images show persistent duct dilatation. Please correlate with operative note. IMPRESSION: IMAGE(S) OBTAINED DURING PROCEDURE. COMMENT: Quality ID [id number]: Final reports for procedures using fluoroscopy that document radiation exp osure indices, or exposure time and number of fluorographic images (if radiation exposure indices are not available) Please consult full operative report of the attending physician for description of the procedure. TECHNICAL DOCUMENTATION: JOB ID: [id number] 2010 [employer]- All Rights Reserved Reading location - IP/workstation name: [email or web address]
[2020-07-31] MEDS: ATENOLOL 50 MG TABLET PO SCH (09:08)
[2020-07-31] MEDS: PANTOPRAZOLE SODIUM 40 MG VIAL IV SCH ×2 (09:08→22:04)
[2020-07-31] MEDS: AMLODIPINE BESYLATE 10 MG TABLET PO SCH (09:09)
[2020-07-31] MEDS: SODIUM BICARBONATE 650 MG TABLET PO SCH ×3 (09:09→17:36)
[2020-07-31] MEDS: CLONIDINE HCL 0.1 MG TABLET PO SCH ×2 (09:09→17:39)
[2020-07-31] MEDS ORDERED: HEPARIN SOD (PORCINE) 1,000 UNIT/ML 10 ML VIAL IV PRN (13:06)
[2020-07-31] MEDS ORDERED: EPOETIN ALFA-EPBX 20,000 UNIT in SYRINGE, DISPOSABLE, 1 EACH IV PRN (13:06)
[2020-07-31] MEDS ORDERED: NORMAL SALINE 1000 ML 1,000 ML IV ONE (13:30)
--- NOTE | 2020-07-31 14:01 | PDOC CONSULTATION ---
Consultation Consult Date: 07/31/20 Provider Consulted: Maryann GAYLE Consult reason:: GAURAV on CKD 4 . 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 Hall / Nephrology who we last saw in number of 2018 and his base creatinine was 4 - presented on 07/28/2020 with fatigue, malaise, anorexia, nausea/vomiting/diarrhea x2 days and near-syncope resulting in fall on the day of admission. Initial evaluations revealed patient was anemic/acute on chronic kidney disease/abnormal obstructive LFTs. 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 He was then taken up subsequently for an ERCP by Dr. Rodriguez who found that the patient had ulcerations in the second and third part of duodenum along with Mirrzi syndrome with cystic duct obstruction and was unable to extract the stone and ended the procedure with sphincterotomy of the sphincter of Oddi along with extraction of sludge. He is now posted for laparotomy and cholecystectomy for tomorrow. Patient complains of being very weak and and getting rather lethargic. He has no appetite though he says is better than what it was a few days ago. He has some nausea. Urine output is dropped according to him but I am not sure if it is being recorded properly as it states 0. Labs and medications were reviewed that shows worsening renal numbers,suggestive of acute on chronic kidney disease stage IV/V. Past Medical History Cardiac Medical History: Reports: Hyperlipidemia, Hypertension-primary Denies: Coronary Artery Disease, Myocardial Infarction Pulmonary Medical History: Denies: Asthma, Bronchitis, Chronic Obstructive Pulmonary Disease (COPD), Pneumonia Neurological Medical History: Denies: Seizures Endocrine Medical History: Reports: Diabetes Mellitus Type 2 Renal/ Medical History: Reports: Chronic Kidney Disease Stage V, Metabolic Acidosis, Secondary Hyperparathyroidism Musculoskeltal Medical History: Reports: Arthritis Hematology Medical History: Reports Anemia of Chronic Kidney Disease Past Surgical History Past Surgical History: Reports: Orthopedic Surgery - right shoulder Social History Lives with: Alone Smoking Status: Never Smoker Electronic Cigarette use?: No - Advance Directive Resuscitation Status: Full Code Family History Parental Family History Reviewed: Yes - Denies any history of ESRD Children Family History Reviewed: Yes Sibling(s) Family History Reviewed.: Yes Medication/Allergy Home Medications: Simvastatin [Zocor 20 mg Tablet] 40 mg PO QHS 09/08/12 Clonidine HCl [Catapres 0.1 mg Tablet] 0.2 mg PO BID 03/21/13 Benazepril HCl 40 mg PO DAILY 07/29/15 Amlodipine Besylate [Norvasc 10 mg Tablet] 10 mg PO DAILY 07/30/20 Atenolol [Tenormin 50 mg Tablet] 50 mg PO DAILY 07/30/20 Glipizide [Glucotrol] 5 mg PO BID 07/30/20 Sodium Bicarbonate [Sodium Bicarbonate 650 mg Tablet] 650 mg PO TID 07/30/20 Allergies/Adverse Reactions: No Known Allergies Allergy (Verified 01/24/19 09:32) Review of Systems Constitutional: PRESENT: anorexia, fatigue, weakness. ABSENT: chills, fever(s), headache(s), night sweats Nose, Mouth, and Throat: ABSENT: mouth pain, sore throat Cardiovascular: ABSENT: chest pain, dyspnea on exertion, edema, orthropnea, palpitations Respiratory: ABSENT: cough, dyspnea, hemoptysis Gastrointestinal: PRESENT: abdominal pain, nausea, vomiting. ABSENT: diarrhea, dysphagia, hematemesis, hematochezia Genitourinary: ABSENT: difficulty urinating, dysuria, hematuria Integumentary: ABSENT: lesions, pruritus, rash Neurological: ABSENT: abnormal movements, abnormal speech, confusion, focal weakness, frequent falls Hematologic/Lymphatic: ABSENT: easy bleeding, easy bruising, lymphadenopathy Physical Exam Vital Signs: Temp Pulse Resp BP Pulse Ox 98.3 F 76 22 H 139/69 H 97 07/31/20 09:22 07/31/20 09:00 07/31/20 09:00 07/31/20 09:00 07/31/20 09:00 Intake & Output 07/30/20 07/31/20 08/01/20 06:59 06:59 06:59 Intake Total 2750 1800 Output Total 200 0 Balance 2550 1800 Weight 57.4 kg General appearance: PRESENT: no acute distress, disheveled Eye exam: PRESENT: EOMI, PERRLA, scleral icterus Ear exam: PRESENT: normal external ear exam Mouth exam: PRESENT: dry mucosa. ABSENT: moist Neck exam: ABSENT: lymphadenopathy, meningismus, thyromegaly, tracheal deviation Respiratory exam: PRESENT: clear to auscultation deven, decreased breath sounds. ABSENT: crackles Cardiovascular exam: PRESENT: +S1, +S2 GI/Abdominal exam: PRESENT: normal bowel sounds, soft, tenderness - Mildly t izzy in the right upper quadrant.. ABSENT: organomegaly Extremities exam: ABSENT: pedal edema Neurological exam: PRESENT: alert, oriented to person, oriented to place. ABSENT: oriented to time Psychiatric exam: PRESENT: depressed Skin exam: ABSENT: erythema, mottled, rash Results Laboratory Results: 07/31/20 04:17 07/31/20 04:17 07/31/20 07/31/20 04:17 04:17 WBC 11.1 H RBC 2.78 L Hgb 8.5 L Hct 25.1 L MCV 90 MCH 30.7 MCHC 34.0 RDW 15.1 H Plt Count 314 Sodium 137.0 Potassium 4.1 Chloride 100 Carbon Dioxide 13 L Anion Gap 24 H BUN 108 H D Creatinine 6.53 H Est GFR ( Amer) 10 L Glucose 168 H Calcium 8.0 L Magnesium 2.1 Total Bilirubin 2.5 H AST 39 Alkaline Phosphatase 316 H Total Protein 5.5 L Albumin 2.9 L 07/28/20 18:30 Troponin I 0.023 Impressions: Chest X-Ray 07/28/20 19:12 IMPRESSION: No evidence of acute cardiopulmonary process. Abdomen/Pelvis CT 07/28/20 19:15 IMPRESSION: Large calculus located within the gallbladder neck or cystic duct with associated mild intrahepatic biliary duct dilatation, raising the possibility of Mirizzi syndrome. Correlate for obstructive laboratories and suggest confirmation with MRCP. At that time, the additional calcification located about the liver hilum can be reassessed as it is indeterminate. Findings compatible with chronic calcific pancreatitis. However, the pancreatic appears relatively normal in bulk, similar to the previous exam dated 07/29/2015. Small amount of subhepatic free fluid. Small hiatal hernia with circumferential distal esophageal wall thickening. Correlate for esophagitis. TECHNICAL DOCUMENTATION: Quality ID # 436: Final reports with documentation of one or more dose reduction techniques (e.g., Automated exposure control, adjustment of the mA and/or kV according to patient size, use of iterative reconstruction technique) copyright 2010 [employer]- All Rights Reserved Abdomen Ultrasound 07/28/20 20:00 IMPRESSION: 1. Gallstones, gallbladder wall thickening, intrahepatic biliary dilatation and nonspecific possible inflammatory material surrounding the gallbladder. These findings are suspicious for acute cholecystitis. Gray's sign was negative but this does not exclude acute cholecystitis. 2. Common bile duct is only mildly dilated. . Question common bile duct stones. 3. Fatty liver. Low position of an atrophic right kidney in the pelvis. Abdomen MRI 07/29/20 04:06 IMPRESSION: 1.1 cm calcific density appears to localize to the common bile duct. The gallbladder is largely decompressed and mild intrahepatic biliary dilatation persists. Associated right upper quadrant inflammatory changes. Other chronic and incidental findings as detailed above. Catheter Placement 07/30/20 00:00 IMPRESSION: IMAGE(S) OBTAINED DURING PROCEDURE. Fluoroscopy 07/30/20 00:00 IMPRESSION: IMAGE(S) OBTAINED DURING PROCEDURE. Assessment & Plan - Diagnosis (1) CKD (chronic kidney disease), stage V Plan: Patient has got acute on chronic kidney disease 4/5 in the face of acute cholecystitis with obstructive jaundice or it could be that he has already progressed into ESRD given the fact that he has not kept his follow-up appointments since last year with Dr. Hall to know if he was progressing from his baseline creatinine of 4 into ESRD. Anyway, the patient is uremic and he is likely oligo anuric state with metabolic acidosis and worsening renal numbers that he requires to be initiated on hemodialysis especially if he is going to have surgery tomorrow. I also discussed with the nurse to have a urinary Hurst c atheter placed and record proper I's and O's. Discussed this with hospitalist and have requested an urgent placement of a temporary femoral dialysis catheter and will initiate him a short hemodialysis treatment which would put him in a better place for surgery tomorrow. Discussed procedure of surgery including pros and cons and rare complications of hypotension cardiac arrest with the patient was willing to proceed. However the hospitalist later calls me and tells me that the surgeon on-call is extremely busy in the OR and will have no time in the next few hours to place a catheter for initiating hemodialysis. Fortunately she says that after placement of urinary Hurst catheter he has produced 300 cc of urine and she is going to start him gently on IV fluids hoping that he can make some amount of renal recovery. I have told her that unfortunately we do not have nurses beyond 4:00 today to initiate hemodialysis and therefore we will not be able to start dialysis today. Hopefully the patient will be continuing to make urine and will be able to go through the surgery tomorrow and when Dr. Hall who is the covering printing manager comes on Monday we will re-evaluate him and see whether he needs to have dialysis at that point.There is no nephrology coverage/dialysis over the weekend. (2) GAURAV (acute kidney injury) Is this a current diagnosis for this admission?: Yes Plan: The patient has got acute kidney insult on top of his underlying CKD stage V in the setting of obstructive jaundice with sepsis. Patient is showing features of early uremia and worsening metabolic acidosis and discussed with patient about the procedure and pros and cons of hemodialysis and patient willing to proceed.But first we need to rule out any obstruction and will see the results of the Hurst catheter (3) Choledocholithiasis Is this a current diagnosis for this admission?: Yes Plan: Currently unfortunately has failed ERCP extraction and is now posted for open laparotomy/cholecystectomy tomorrow. (4) Essential hypertension Is this a current diagnosis for this admission?: Yes Plan: stable. (5) Anemia in chronic kidney disease (CKD) Plan: Initiate iron studies and start him on erythropoietin on dialysis today. (6) Metabolic acidosis Is this a current diagnosis for this admission?: Yes Plan: Gap acidosis. Initiated IV replacements and see response to dialysis. Postdial ysis if he is better one could convert the IV to p.o. replacements only. (7) Sepsis Plan: Secondary to obstructive choledocholithiasis that has failed ERCP extraction. Now posted for open labs/cholecystectomy tomorrow.
--- NOTE | 2020-07-31 14:30 | PDOC PROGRESS REPORT ---
Subjective Progress Note for:: 07/31/20 Subjective:: 70-year-old male with jaundice and a possible common bile duct stone on MRCP. 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 Patient denies any abdominal pain this morning. He is tolerating clear liquids. He denies chest pain, shortness of breath, fevers, chills, nausea, vomiting, dizziness, orthostasis. Reason For Visit: CHOLEDOCHOLITHIASIS, FALL, DEHYDRATION Physical Exam Vital Signs: Temp Pulse Resp BP Pulse Ox 98.3 F 76 22 H 139/69 H 97 07/31/20 09:22 07/31/20 09:00 07/31/20 09:00 07/31/20 09:00 07/31/20 09:00 Intake & Output 07/30/20 07/31/20 08/01/20 06:59 06:59 06:59 Intake Total 2750 1800 Output Total 200 0 Balance 2550 1800 Weight 57.4 kg General appearance: PRESENT: no acute distress, thin, other - Elderly Head exam: PRESENT: atraumatic, normocephalic Eye exam: PRESENT: EOMI, PERRLA Mouth exam: PRESENT: moist, neck supple Neck exam: ABSENT: meningismus, tenderness, thyromegaly Respiratory exam: PRESENT: unlabored. ABSENT: tachypnea, wheezes Cardiovascular exam: ABSENT: tachycardia Vascular exam: PRESENT: normal capillary refill GI/Abdominal exam: PRESENT: soft. ABSENT: distended, tenderness Rectal exam: PRESENT: deferred Extremities exam: ABSENT: clubbing Musculoskeletal exam: ABSENT: deformity Neurological exam: PRESENT: alert, awake, oriented to person, oriented to place, oriented to time, oriented to situation. ABSENT: motor sensory deficit Psychiatric exam: ABSENT: agitated, anxious, depressed Focused psych exam: ABSENT: delusional Skin exam: ABSENT: cyanosis, erythema Results Laboratory Results: 07/31/20 04:17 07/31/20 04:17 07/31/20 07/31/20 04:17 04:17 WBC 11.1 H RBC 2.78 L Hgb 8.5 L Hct 25.1 L MCV 90 MCH 30.7 MCHC 34.0 RDW 15.1 H Plt Count 314 Sodium 137.0 Potassium 4.1 Chloride 100 Carbon Dioxide 13 L Anion Gap 24 H BUN 108 H D Creatinine 6.53 H Est GFR ( Amer) 10 L Glucose 168 H Calcium 8.0 L Magnesium 2.1 Total Bilirubin 2.5 H AST 39 Alkaline Phosphatase 316 H Total Protein 5.5 L Albumin 2.9 L 07/28/20 18:30 Troponin I 0.023 Impressions: Chest X-Ray 07/28/20 19:12 IMPRESSION: No evidence of acute cardiopulmonary process. Abdomen/Pelvis CT 07/28/20 19:15 IMPRESSION: Large calculus located within the gallbladder neck or cystic duct with associated mild intrahepatic biliary duct dilatation, raising the possibility of Mirizzi syndrome. Correlate for obstructive laboratories and suggest confirmation with MRCP. At that time, the additional calcification located about the liver hilum can be reassessed as it is indeterminate. Findings compatible with chronic calcific pancreatitis. However, the pancreatic appears relatively normal in bulk, similar to the previous exam dated 07/29/2015. Small amount of subhepatic free fluid. Small hiatal hernia with circumferential distal esophageal wall thickening. Correlate for esophagitis. TECHNICAL DOCUMENTATION: Quality ID # 436: Final reports with documentation of one or more dose reduction techniques (e.g., Automated exposure control, adjustment of the mA and/or kV according to patient size, use of iterative reconstruction technique) copyright 2011 [employer]- All Rights Reserved Abdomen Ultrasound 07/28/20 20:00 IMPRESSION: 1. Gallstones, gallbladder wall thickening, intrahepatic biliary dilatation and nonspecific possible inflammatory material surrounding the gallbladder. These findings are suspicious for acute cholecystitis. Gray's sign was negative but this does not exclude acute cholecystitis. 2. Common bile duct is only mildly dilated. . Question common bile duct stones. 3. Fatty liver. Low position of an atrophic right kidney in the pelvis. Abdomen MRI 07/29/20 04:06 IMPRESSION: 1.1 cm calcific density appears to localize to the common bile duct . The gallbladder is largely decompressed and mild intrahepatic biliary dilatation persists. Associated right upper quadrant inflammatory changes. Other chronic and incidental findings as detailed above. Catheter Placement 07/30/20 00:00 IMPRESSION: IMAGE(S) OBTAINED DURING PROCEDURE. Fluoroscopy 07/30/20 00:00 IMPRESSION: IMAGE(S) OBTAINED DURING PROCEDURE. Assessment & Plan - Diagnosis (1) Chronic cholecystitis due to cholelithiasis with choledocholithiasis Is this a current diagnosis for this admission?: Yes - Time Anticipated Discharge Disposition: unknown Anticipated Discharge Timeframe: unknown - Plan Summary Plan Summary: 70-year-old male with hyperbilirubinemia, due to common bile duct stone versus Mirizzi syndrome. Plan for laparoscopic cholecystectomy with intraoperative cholangiogram tomorrow. If a stone is found within the common bile duct, the patient will require a common bile duct exploration. This has been discussed with the patient, and he is in agreement with the treatment plan. Plan for surgery tomorrow.
[2020-07-31 14:58] LABS: BLOOD UREA NITROGEN 112 mg/dL (7-20); CALCIUM 7.1 mg/dL (8.4-10.2); CARBON DIOXIDE 14 mmol/L (22-30); CHLORIDE 101 mmol/L (98-107); GLUCOSE 239 mg/dL (75-110); PHOSPHORUS 9.1 mg/dL (2.5-4.5); POTASSIUM 3.5 mmol/L (3.6-5.0)
[2020-07-31 15:06] LABS: ANION GAP 20 (5-19)
--- NOTE | 2020-07-31 15:23 | RADIOLOGY REPORT (SQ) ---
EXAM DESCRIPTION: CHEST SINGLE VIEW IMAGES COMPLETED DATE/TIME: 07/31/2020 3:03 pm REASON FOR STUDY: SOB COMPARISON: 07/28/2020 TECHNIQUE: Single frontal radiographic view of the chest acquired. NUMBER OF VIEWS: One view. LIMITATIONS: None. FINDINGS: LUNGS AND PLEURA: No pneumothorax. Small amount of medial left basilar subsegmental atele ctasis. No pleural effusion. MEDIASTINUM AND HILAR STRUCTURES: Stable. HEART AND VASCULAR STRUCTURES: Stable. BONES: No acute findings. HARDWARE: None in the chest. OTHER: No other significant finding. IMPRESSION: Small amount of medial left basilar subsegmental atelectasis. No pleural effusion. TECHNICAL DOCUMENTATION: JOB ID: [id number] [place]-72 2010 [employer]- All Rights Reserved Reading location - IP/workstation name: [email or web address]
[2020-07-31] MEDS: CALCITRIOL 0.25 MCG CAPSULE PO SCH (17:36)
--- NOTE | 2020-07-31 17:45 | Operative Report ---
Nonrecallable Operative Report DATE OF SURGERY: 07/31/20 PREOPERATIVE DIAGNOSIS: Hematochezia POSTOPERATIVE DIAGNOSIS: 1. No active bleeding. 2. Old blood throughout the colon, including at the ileocecal valve (possibly suggestive of an upper GI source). 3. Pandiverticulosis. OPERATION: Colonoscopy to the cecum SURGEON: TANIA WEISS ANESTHESIA: LMAC TISSUE REMOVED OR ALTERED: None COMPLICATIONS: Old blood throughout the colon, creating a poor prep. ESTIMATED BLOOD LOSS: None PROCEDURE: Procedure in detail: After informed consent was obtained, the patient was brought to the operating room and laid in the left lateral decubitus position. The endoscope was passed up the rectum, sigmoid colon, descending colon, across the transverse colon, down the ascending colon, and into the cecum. The ileocecal valve and appendiceal orifice were identified. The scope was then withdrawn, circumferentially noting the mucosa. The prep was poor. There was old blood throughout the colon, adherent to the colonic wall. This examination is an adequate for screening purposes, as small polypoid lesions can be missed. The scope was withdrawn past the ascending colon, transverse colon, down the descending colon, sigmoid colon, and into the rectum. Throughout the colon there was pandiverticulosis, and the aforementioned old blood throughout. There was no active bleeding. The blood extended all the way to the cecum, in the area of the ileocecal valve. This may be indicative of a more proximal bleeding source. 1 was reached, a retroflexion maneuver was performed noting no significant internal hemorrhoids. The scope was then straightened, air was suctioned from the rectum, the scope was removed, and the procedure was concluded. All sponge, instrument, needle counts were correct. Condition: Stable.
--- NOTE | 2020-07-31 18:36 | PDOC PROGRESS REPORT ---
Subjective Progress Note for:: 07/31/20 Subjective:: Patient is seen on morning rounds he is resting comfortably in bed. His sister is at his bedside. Pt states that overall he is feeling better than ever and reports minimal abdominal pain. His appetite remains minimal, though is better than previous. When asked if he is making urine he states minimal. Otherwise denies fever, CP, shortness of breath, palpiations nausea, vomiting, or diarrhea. Discussed case with patient's nurse. She provided no concerns or complaints today. Reason For Visit: CHOLEDOCHOLITHIASIS, FALL, DEHYDRATION Physical Exam Vital Signs: Temp Pulse Resp BP Pulse Ox 98.3 F 76 22 H 139/69 H 97 07/31/20 09:22 07/31/20 09:00 07/31/20 09:00 07/31/20 09:00 07/31/20 09:00 Intake & Output 07/30/20 07/31/20 08/01/20 06:59 06:59 06:59 Intake Total 2750 1800 Output Total 200 0 Balance 2550 1800 Weight 57.4 kg General appearance: PRESENT: no acute distress, cooperative, thin Head exam: PRESENT: atraumatic, normocephalic Eye exam: PRESENT: EOMI, PERRLA, scleral icterus Mouth exam: PRESENT: dry mucosa, tongue midline Neck exam: PRESENT: full ROM. ABSENT: lymphadenopathy, meningismus, tenderness, thyromegaly, tracheal deviation Respiratory exam: PRESENT: clear to auscultation deven. ABSENT: crackles, tachypnea Cardiovascular exam: PRESENT: RRR, +S1, +S2 Pulses: PRESENT: normal radial pulses GI/Abdominal exam: PRESENT: normal bowel sounds, soft, tenderness - RUQ. ABSENT: ascites, distended, firm, rigid Gentrourinary exam: PRESENT: indwelling catheter - ~300ccs yellow urine present Extremities exam: ABSENT: calf tenderness, clubbing, pedal edema Musculoskeletal exam: ABSENT: deformity, dislocation Neurological exam: PRESENT: alert, awake, oriented to person, oriented to place, oriented to time, oriented to situation, CN II-XII grossly intact. ABSENT: altered, motor sensory deficit Psychiatric exam: PRESENT: appropriate affect, normal mood Skin exam: PRESENT: dry, intact, warm. ABSENT: jaundice Results Laboratory Results: 07/31/20 04:17 07/31/20 04:17 07/31/20 07/31/20 04:17 04:17 WBC 11.1 H RBC 2.78 L Hgb 8.5 L Hct 25.1 L MCV 90 MCH 30.7 MCHC 34.0 RDW 15.1 H Plt Count 314 Sodium 137.0 Potassium 4.1 Chloride 100 Carbon Dioxide 13 L Anion Gap 24 H BUN 108 H D Creatinine 6.53 H Est GFR ( Amer) 10 L Glucose 168 H Calcium 8.0 L Magnesium 2.1 Total Bilirubin 2.5 H AST 39 Alkaline Phosphatase 316 H Total Protein 5.5 L Albumin 2.9 L 07/28/20 18:30 Troponin I 0.023 Impressions: Chest X-Ray 07/28/20 19:12 IMPRESSION: No evidence of acute cardiopulmonary process. Abdomen/Pelvis CT 07/28/20 19:15 IMPRESSION: Large calculus located within the gallbladder neck or cystic duct with associated mild intrahepatic biliary duct dilatation, raising the possibility of Mirizzi syndrome. Correlate for obstructive laboratories and suggest confirmation with MRCP. At that time, the additional calcification located about the liver hilum can be reassessed as it is indeterminate. Findings compatible with chronic calcific pancreatitis. However, the pancreatic appears relatively normal in bulk, similar to the previous exam dated 07/29/2015. Small amount of subhepatic free fluid. Small hiatal hernia with circumferential distal esophageal wall thickening. Correlate for esophagitis. TECHNICAL DOCUMENTATION: Quality ID # 436: Final reports with documentation of one or more dose reduction techniques (e.g., Automated exposure control, adjustment of the mA and/or kV according to patient size, use of iterative reconstruction technique) copyright 2011 [employer]- All Rights Reserved Abdomen Ultrasound 07/28/20 20:00 IMPRESSION: 1. Gallstones, gallbladder wall thickening, intrahepatic biliary dilatation and nonspecific possible inflammatory material surrounding the gallbladder. These findings are suspicious for acute cholecystitis. Gray's sign was negative but this does not exclude acute cholecystitis. 2. Common bile duct is only mildly dilated. . Question common bile duct stones. 3. Fatty liver. Low position of an atrophic right kidney in the pelvis. Abdomen MRI 07/29/20 04:06 IMPRESSION: 1.1 cm calcific density appears to localize to the common bile duct. The gallbladder is largely decompressed and mild intrahepatic biliary dilatation persists. Associated right upper quadrant inflammatory changes. Other chronic and incidental findings as detailed above. Catheter Placement 07/30/20 00:00 IMPRESSION: IMAGE(S) OBTAINED DURING PROCEDURE. Fluoroscopy 07/30/20 00:00 IMPRESSION: IMAGE(S) OBTAINED DURING PROCEDURE. Assessment and Plan - Diagnosis (1) GAURAV (acute kidney injury) Is this a current diagnosis for this admission?: Yes (2) Abnormal findings on imaging of biliary tract Is this a current diagnosis for this admission?: Yes (4) Choledocholithiasis Is this a current diagnosis for this admission?: Yes (5) Chronic anemia Is this a current diagnosis for this admission?: Yes (6) Chronic cholecystitis due to cholelithiasis with choledocholithiasis Is this a current diagnosis for this admission?: Yes (7) Essential hypertension Is this a current diagnosis for this admission?: Yes (8) Fall Qualifiers: Encounter type: initial encounter Qualified Code(s): W19.XXXA - Unspecified fall, initial encounter Is this a current diagnosis for this admission?: Yes (9) Metabolic acidosis Is this a current diagnosis for this admission?: Yes (10) Nausea and vomiting Qualifiers: Vomiting type: unspecified Vomiting Intractability: unspecified Qualified Code(s): R11.2 - Nausea with vomiting, unspecified Is this a current diagnosis for this admission?: Yes (11) Near syncope Is this a current diagnosis for this admission?: Yes (12) Neutrophilic leukocytosis Is this a current diagnosis for this admission?: Yes - Plan Summary Summary: TINA YUAN is a 70 year old male with HTN, HLD, DM2, CKD who presented on 07/28/2020 with fatigue, malaise, anorexia, nausea/vomiting/diarrhea x2 days and near-syncope resulting in fall on the day of admission. In the ED, he was found to be hypotensive, have leukocytosis, elevated bilirubin of 4.8 and elevation of transaminases and alkaline phosphatase. CT abdomen pelvis showed cholelithiasis and questionable choledocholithiasis. MRCP revealed a 1 cm stone in the common bile duct causing intra-hepatic duct dilatation. He was initially scheduled to be transferred to [place] to undergo ERCP there and has been waiting in the emergency room for transfer; however, the transfer never occurred and Dr. Rodriguez has now agreed to perform the ERCP tonight here at [facility] instead. The hospitalist service was therefore contacted for admission. Patient will be started on IVF and antibiotics with cefazolin/metronidazole. He remains NPO for ERCP tonight. GI consulted. General surgery consulted for eventual lap pete. GAUARV on CKD due to dehydration and N/V, will consult n ephrology. HTN uncontrolled, restart home medications. Repeat CMP/CBC in AM. 07/31/2020: Patient with failed ERCP 07/30/2020; operating report was reviewed in detail. 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 Pt scheduled for laproscopic cholecystectomy with choliogram tomorrow. Dr. Barragan, nephrology, was consulted. Pt was found to be uremic by Dr. Barragan, requesting urgen placement of temporary femal dialysis catheter for short term hemodialysis treatment. Hurst catheter was placed to monitor strick I&Os. Patient with ~300cc urine approximately 30 minutes after catheter placement, as noted on exam. Dialysis catheter was not placed today, pt unable to receive dialysis until Monday. He appears to be making urine. He is receiving IV fluids at this time. Will monitor closely. Repeat CMP/CBC in AM prior to procedure. - Time Time Spent with patient: 15-24 minutes Medications reviewed and adjusted accordingly: Yes Anticipated Discharge Disposition: Home, Self Care Anticipated Discharge Timeframe: within 24 hours
[2020-07-31 19:24] LABS: ALBUMIN 3.2 g/dL (3.5-5.0); ALKALINE PHOSPHATASE 132 U/L (38-126); ASPARTATE AMINO TRANSFERASE 34 U/L (17-59); CHLORIDE 100 mmol/L (98-107); GLUCOSE 253 mg/dL (75-110)
[2020-07-31 19:28] LABS: BILIRUBIN,DIRECT 0.2 mg/dL (0.0-0.4); BILIRUBIN,TOTAL 0.4 mg/dL (0.2-1.3); CALCIUM 9.6 mg/dL (8.4-10.2); TOTAL PROTEIN 6.2 g/dL (6.3-8.2)
[2020-07-31 19:38] LABS: ANION GAP 13 (5-19)
[2020-07-31 19:44] LABS: BLOOD UREA NITROGEN 27 mg/dL (7-20); CARBON DIOXIDE 23 mmol/L (22-30); POTASSIUM 5.2 mmol/L (3.6-5.0)
[2020-08-01] MEDS: DEXTROSE 5%-WATER 1000 ML 1,000 ML with SODIUM BICARBONATE 150 MEQ IV PRN ×2 (04:24)
[2020-08-01 05:20] LABS: ABSOLUTE RETICS # 0.045 10^6/uL (0.028-0.122); HEMATOCRIT 19.6 % (37.9-51.0); MEAN CORPUSCULAR HEMOGLOBIN 30.9 pg (27.0-33.4); MEAN CORPUSCULAR HGB CONC 34.7 g/dL (32.0-36.0); MEAN CORPUSCULAR VOLUME 89 fl (80-97); PLATELET COUNT 247 10^3/uL (150-450); RED CELL DISTRIBUTION WIDTH 14.7 % (11.5-14.0); RETICULOCYTE COUNT (AUTO) 2.06 % (0.66-2.85); WHITE BLOOD COUNT 10.7 10^3/uL (4.0-10.5)
[2020-08-01] MEDS: HEPARIN SOD (PORCINE) 5,000 UNIT/ML 1 ML VIAL SUBCUT SCH (05:22)
[2020-08-01] MEDS: CEFAZOLIN 1 GM/D5W RTU 1 GM/50 ML RTUPB IV SCH ×2 (05:25→15:58)
[2020-08-01] MEDS: METRONIDAZOLE 500 MG/NS RTU 500 MG/100 ML RTUPB IV SCH ×3 (05:25→22:04)
[2020-08-01 05:39] LABS: ALBUMIN 2.3 g/dL (3.5-5.0); ALKALINE PHOSPHATASE 201 U/L (38-126); ANION GAP 19 (5-19); ASPARTATE AMINO TRANSFERASE 27 U/L (17-59); BILIRUBIN,DIRECT 1.5 mg/dL (0.0-0.4); BILIRUBIN,TOTAL 1.6 mg/dL (0.2-1.3); CALCIUM 7.1 mg/dL (8.4-10.2); CARBON DIOXIDE 15 mmol/L (22-30); CHLORIDE 99 mmol/L (98-107); GLUCOSE 146 mg/dL (75-110); IRON(TIBC) 41.6 ug/dL (49-181); TOTAL PROTEIN 4.4 g/dL (6.3-8.2)
[2020-08-01 05:56] LABS: HEMOGLOBIN 6.8 g/dL (13.5-17.0)
[2020-08-01 06:02] LABS: BLOOD UREA NITROGEN 112 mg/dL (7-20); POTASSIUM 3.7 mmol/L (3.6-5.0)
[2020-08-01] MEDS ORDERED: NORMAL SALINE 250 ML IV PRN ×2 (06:04)
[2020-08-01 06:37] LABS: HEPATITS B SURFACE ANTIGEN Negative (Negative)
[2020-08-01] MEDS ORDERED: BUPIVACAINE HCL 0.25 % INJ/PF (2.5 MG/1 ML) 30 ML VIAL ONE (07:08)
[2020-08-01] MEDS ORDERED: KETAMINE HCL INJ 500 MG/10 ML VIAL ONE (07:27)
[2020-08-01] MEDS ORDERED: FENTANYL CITRATE INJ/PF 100 MCG/2 ML AMPUL ONE (07:27)
[2020-08-01] MEDS ORDERED: MIDAZOLAM 2 MG/2 ML INJ ONE (07:27)
[2020-08-01] MEDS ORDERED: PROPOFOL INJ 200 MG/20 ML VIAL IV ONE (07:28)
[2020-08-01] MEDS ORDERED: EPHEDRINE SULFATE INJ 50 MG/1 ML AMPULE ONE (07:28)
[2020-08-01] MEDS ORDERED: BUPIVACAINE HCL 0.25% /EPINEPHRINE INJ/PF 30 ML SDV ONE ×2 (07:42→08:16)
[2020-08-01] MEDS: INSULIN LISPRO 100 UNIT/ML 3 ML VIAL SUBCUT SCH (08:39)
[2020-08-01] MEDS ORDERED: LIDOCAINE 2% INJ-PF (20 MG/ML) 2 ML AMPUL ONE (10:27)
[2020-08-01] MEDS ORDERED: ONDANSETRON HCL INJ/PF 4 MG/2 ML SDV ONE (10:27)
[2020-08-01] MEDS ORDERED: NEOSTIGMINE METHYLSULFATE 10 MG/10 ML VIAL ONE (10:27)
[2020-08-01] MEDS ORDERED: DEXAMETHASONE SOD PHOSPHATE INJ 4 MG/1 ML VIAL ONE (10:27)
[2020-08-01] MEDS ORDERED: PHENYLEPHRINE HCL INJ/PF 10 MG/1 ML SDV ONE ×2 (10:27→12:23)
[2020-08-01] MEDS ORDERED: GLYCOPYRROLATE 1 MG/5 ML VIAL ONE (10:27)
[2020-08-01] MEDS ORDERED: ROCURONIUM BROMIDE INJ 50 MG/5 ML VIAL IV ONE (10:27)
[2020-08-01 10:50] LABS: HEMATOCRIT 30.5 % (37.9-51.0); MEAN CORPUSCULAR HEMOGLOBIN 30.6 pg (27.0-33.4); MEAN CORPUSCULAR HGB CONC 34.7 g/dL (32.0-36.0); MEAN CORPUSCULAR VOLUME 88 fl (80-97); PLATELET COUNT 193 10^3/uL (150-450); RED BLOOD COUNT 3.46 10^6/uL (4.35-5.55); RED CELL DISTRIBUTION WIDTH 14.4 % (11.5-14.0); WHITE BLOOD COUNT 11.6 10^3/uL (4.0-10.5)
[2020-08-01] MEDS ORDERED: CEFAZOLIN INJ 1 GM VIAL ONE (10:57)
[2020-08-01 11:00] LABS: HEMOGLOBIN 10.6 g/dL (13.5-17.0)
[2020-08-01] MEDS ORDERED: DIPHENHYDRAMINE HCL 50 MG/ML VIAL IV PRN (11:00)
[2020-08-01] MEDS ORDERED: ONDANSETRON HCL INJ/PF 4 MG/2 ML SDV IV PRN (11:00)
[2020-08-01] MEDS ORDERED: FENTANYL CITRATE INJ/PF 100 MCG/2 ML AMPUL IV PRN ×3 (11:00)
[2020-08-01] MEDS ORDERED: MEPERIDINE HCL/PF INJ 25 MG/1 ML DISP.SYRIN IV PRN (11:00)
[2020-08-01] MEDS ORDERED: PROMETHAZINE HCL INJ 25 MG/1 ML VIAL IV PRN (11:00)
[2020-08-01] MEDS ORDERED: HYDROMORPHONE HCL INJ/PF 2 MG/ML AMPULE IV PRN (11:01)
[2020-08-01] MEDS ORDERED: BUPIVACAINE INJ/PF LIPOSOME/PF 266 MG/20 ML SDV ONE (11:11)
[2020-08-01] MEDS ORDERED: SUGAMMADEX SODIUM 200 MG/2 ML SDV IV ONE (12:08)
--- NOTE | 2020-08-01 12:25 | RADIOLOGY REPORT (SQ) ---
EXAM DESCRIPTION: NO CHG FLUORO; CHOLANGIOGRAM OPERATIVE IMAGES COMPLETED DATE/TIME: 08/01/2020 11:36 am REASON FOR STUDY: CHOLANGIOGRAM COMPARISON: None. FLUOROSCOPY TIME: 6.2 minutes 8 images saved to PACS. TECHNIQUE: Intra-operative images acquired during surgical procedure to evaluate progress. NUMBER OF IMAGES: 8th LIMITATIONS: None. FINDINGS: Fluoroscopic images from intraoperative cholangiogram. IMPRESSION: IMAGE(S) OBTAINED DURING PROCEDURE. COMMENT: Quality ID 145: Final reports for procedures using fluoroscopy that document radiation exp osure indices, or exposure time and number of fluorographic images (if radiation exposure indices are not available) Please consult full operative report of the attending physician for description of the procedure. TECHNICAL DOCUMENTATION: JOB ID: [id number] 2010 [employer]- All Rights Reserved Reading location - IP/workstation name: [email or web address]
--- NOTE | 2020-08-01 12:25 | RADIOLOGY REPORT (SQ) ---
EXAM DESCRIPTION: NO CHG FLUORO; CHOLANGIOGRAM OPERATIVE IMAGES COMPLETED DATE/TIME: 08/01/2020 11:36 am REASON FOR STUDY: CHOLANGIOGRAM COMPARISON: None. FLUOROSCOPY TIME: 6.2 minutes 8 images saved to PACS. TECHNIQUE: Intra-operative images acquired during surgical procedure to evaluate progress. NUMBER OF IMAGES: 8th LIMITATIONS: None. FINDINGS: Fluoroscopic images from intraoperative cholangiogram. IMPRESSION: IMAGE(S) OBTAINED DURING PROCEDURE. COMMENT: Quality ID 145: Final reports for procedures using fluoroscopy that document radiation exp osure indices, or exposure time and number of fluorographic images (if radiation exposure indices are not available) Please consult full operative report of the attending physician for description of the procedure. TECHNICAL DOCUMENTATION: JOB ID: [id number] 2010 [employer]- All Rights Reserved Reading location - IP/workstation name: [email or web address]
--- NOTE | 2020-08-01 14:37 | Operative Report ---
Nonrecallable Operative Report DATE OF SURGERY: 08/01/20 PREOPERATIVE DIAGNOSIS: biliary obstruction and renal failure,diabetes, POSTOPERATIVE DIAGNOSIS: same OPERATION: attempted laparoscopic chlecystectomy converted to open cholecystectomy with jazmin-y hepatic jejunostomy. SURGEON: MADDY CLAYTON 1ST NIGHT COORDINATOR: TANIA WEISS ANESTHESIA: GA TISSUE REMOVED OR ALTERED: gallbladder, erroded cbd stone COMPLICATIONS: none ESTIMATED BLOOD LOSS: 200cc INTRAOPERATIVE FINDINGS: biliary staiing of the retroperitonium behind duodenum and pancreas PROCEDURE: Patient was brought to the operating room awake alert in stable condition placed in the operative table supine position induced under general anesthesia intubated. After appropriate timeout site verification the procedure commenced. A varies needle was placed into the umbilicus and the abdomen was insufflated w ith 6 L of CO2 gas. Supraumbilical 10 mm incision was made with a 15 blade and a 10 mm port placed in the abdominal cavity intra-abdominal visualization revealed no evidence of a varies needle or trocar injury. We placed 2 5 mm right lateral abdominal port and epigastric 5 mm port for dissection. There was a significant phlegmon in the right upper quadrant with omentum caked on top of the liver and right upper quadrant where the gallbladder was. With some manipulation were able to dissect the omentum away from the campbell hepatis and identify a small gallbladder that had been completely contracted and significantly scarred down with much mobilization and dissection we were able to dissect out a little bit of the omentum away from the gallbladder because of significant bleeding and I felt that there was not good to be a successful outcome laparoscopically and therefore elected to open. A Savannah incision was made in the right upper quadrant with a 15 blade and dissection carried down through subcutaneous tissue and muscle with the Bovie cautery through the rectus abdominis muscle and transversalis muscle laterally. The big boy retractor was placed for better visualization. We then able to manipulate the omentum away from the contracted gallbladder and noted that the color was quite scarred down to the campbell hepatis and the campbell hepatis was markedly swollen and inflamed. Also of note upon mobilizing the second portion of the duodenum there was significant bile staining of the retroperitoneum behind the pancreas and the duodenum most likely secondary from the previous ERCP done 2 days prior. Eventually with blunt and sharp dissection we were able to identify a large stone that had eroded the common bile duct just above the cystic duct junction it was certainly significantly inflamed and upon manipulation of the stone we were unable to move the stone within the bile duct. Therefore a long choledochotomy was then made. When we made a choledochotomy we were able to remove the 1 cm stone. After removing the stone there was communication with the duodenum using a Mirza forceps identified a tract. Because of the significant choledochotomy that was required to take that stone I felt uncomfortable repairing the bile duct over a T-tube. I therefore elected to perform a removal hepaticojejunostomy after confirming the proximal end of the choledochotomy was below the bifurcation of the right hepatic and left hepatic ducts using a cholangiogram I elected to bring a loop of small bowel up to the choledochotomy and perform a hepaticojejunostomy. The point was picked distal to the ligament of Treitz about 20 cm we divided the small bowel with a LUNA stapler with a blue load of the mesentery with the LigaSure device. We then brought the loop of small bowel in a retrocolic fashion up to the right upper quadrant. We performed a hepaticojejunostomy between the loop of small bowel in the proximal end of the common bile duct just at the level of the proximal portion of the choledochotomy. Which this was accomplished I attached the blind end of the Jazmin limb to the stomach for access later if necessary for treatment of a possible stricture. This was done between the end of the Jazmin limb proximal to hepaticojejunostomy and the antrum of the stomach. This anastomosis was done in 2 layers posterior layer was 2-0 silk the running inner layer was 3-0 Vicryl. After completion of this gastrojejunostomy and the hepaticojejunostomy I then placed a Angiocath into the end of the Jazmin limb injected dye with a bowel clamp on Jazmin limb distal to the hepaticojejunostomy and noted the filling of the right and left hepatic We then completed the Jazmin-en-Y ducts. Hepaticojejunostomy by anastomosing the Jazmin limb to the biliary limb about 30 cm distal to the hepaticojejunostomy this was done with an LUNA stapler and the preston were closed transversely with a LUNA stapler and the mesentery defect was closed with a running 3-0 Maxon suture. A Vladislav-Roy drain was placed in the campbell hepatis and brought out through a stab wound in the right lower quadrant. We then closed the posterior rectus sheath with a running 0 Vicryl suture we closed the anterior layers with interrupted #2 Vicryl suture and skin was closed with standard skin clips. Estimated blood loss for the procedure was approximately 200 cc sponge needle counts were correct x2 the patient was awakened in the operating room extubated transferred to recovery in stable condition.
[2020-08-01] MEDS: CLONIDINE HCL 0.1 MG TABLET PO SCH (15:32)
[2020-08-01] MEDS: AMLODIPINE BESYLATE 10 MG TABLET PO SCH (15:33)
[2020-08-01] MEDS: PANTOPRAZOLE SODIUM 40 MG VIAL IV SCH ×2 (15:33→22:09)
[2020-08-01] MEDS: ATENOLOL 50 MG TABLET PO SCH (15:33)
[2020-08-01 15:59] LABS: HEMATOCRIT 34.1 % (37.9-51.0); HEMOGLOBIN 11.9 g/dL (13.5-17.0); MEAN CORPUSCULAR HGB CONC 34.8 g/dL (32.0-36.0); MEAN CORPUSCULAR VOLUME 86 fl (80-97); PLATELET COUNT 133 10^3/uL (150-450); RED BLOOD COUNT 3.96 10^6/uL (4.35-5.55); RED CELL DISTRIBUTION WIDTH 14.7 % (11.5-14.0)
[2020-08-01] MEDS: RINGERS SOLUTION,LACTATED 1,000 ML IV PRN (16:00)
[2020-08-01 16:20] LABS: ABSOLUTE LYMPHOCYTES# (MANUAL) 0.5 10^3/uL (0.5-4.7); ABSOLUTE MONOCYTES # (MANUAL) 0.2 10^3/uL (0.1-1.4); BAND NEUTROPHILS % (MANUAL) 2 % (3-5); BASOPHILS % (MANUAL) 0 % (0-2); EOSINOPHILS % (MANUAL) 0 % (0-6); LYMPHOCYTES % (MANUAL) 5 % (13-45); MONOCYTES % (MANUAL) 2 % (3-13); NUCLEATED RED BLOOD CELLS 1 /100 WBC (0); SEGMENTED NEUTROPHILS % (MAN) 91 % (42-78); TOTAL CELLS COUNTED 100
[2020-08-01 16:21] LABS: ANISOCYTOSIS SLIGHT; BURR CELLS 1+
[2020-08-01] MEDS ORDERED: FLUCONAZOLE 400 MG/NS RTU 400 MG/200 ML RTUPB IV ONE (16:21)
[2020-08-01 16:22] LABS: PLATELET COMMENT DECREASED; TOXIC VACUOLATION PRESENT
[2020-08-01] MEDS ORDERED: MORPHINE SULFATE 10 MG/ML INJ IV PRN (16:24)
[2020-08-01] MEDS ORDERED: DEXTROSE 50%-WATER SYRINGE 25 GM/50 ML DOSE IV PRN (16:30)
[2020-08-01] MEDS ORDERED: DEXTROSE 40% GEL 15 GM TUBE X 2 PO PRN (16:30)
[2020-08-01] MEDS ORDERED: DEXTROSE 40% GEL 15 GM TUBE PO PRN (16:30)
[2020-08-01] MEDS ORDERED: DEXTROSE 50%-WATER SYRINGE 12.5 GM/25 ML DOSE IV PRN (16:30)
[2020-08-01] MEDS ORDERED: GLUCAGON,HUMAN RECOMB 1 MG INJ IM PRN (16:30)
[2020-08-01] MEDS ORDERED: VANCOMYCIN HCL 0 MG in DEXTROSE 5%-WATER 250 ML IV NR (16:30)
[2020-08-01 16:31] LABS: HEPATITIS B CORE AB TOT Negative (Negative)
[2020-08-01] MEDS ORDERED: VANCOMYCIN HCL INJ 1000 MG VIAL IV PRN (16:52)
[2020-08-01] MEDS: METOPROLOL TARTRATE PF/INJ 5 MG/5 ML SDV IV SCH (17:57)
[2020-08-01] MEDS: CEFTRIAXONE 1 GM/D5W RTU 1 GM/50 ML RTUPB IV SCH (17:58)
[2020-08-01] MEDS ORDERED: VANCOMYCIN HCL 1,000 MG in DEXTROSE 5%-WATER 250 ML IV ONE (18:00)
[2020-08-01] MEDS: INSULIN REG, HUMAN 100 UNIT/ML 3 ML VIAL (PYX) SUBCUT SCH (18:00)
[2020-08-01] MEDS: POTASSI CL 20 MEQ/50 ML RIDER 20 MEQ/50 ML RTUPB IV SCH ×2 (18:13→21:50)
[2020-08-01 18:35] LABS: ALBUMIN 2.2 g/dL (3.5-5.0); ALKALINE PHOSPHATASE 161 U/L (38-126); ASPARTATE AMINO TRANSFERASE 101 U/L (17-59); BILIRUBIN,TOTAL 2.2 mg/dL (0.2-1.3); BLOOD UREA NITROGEN 104 mg/dL (7-20); CALCIUM 7.1 mg/dL (8.4-10.2); CARBON DIOXIDE 11 mmol/L (22-30); CHLORIDE 101 mmol/L (98-107); GLUCOSE 217 mg/dL (75-110); POTASSIUM 4.4 mmol/L (3.6-5.0); TOTAL PROTEIN 4.5 g/dL (6.3-8.2)
[2020-08-01 18:38] LABS: ANION GAP 22 (5-19)
[2020-08-02] MEDS: METOPROLOL TARTRATE PF/INJ 5 MG/5 ML SDV IV SCH ×4 (00:01→19:11)
[2020-08-02] MEDS: INSULIN REG, HUMAN 100 UNIT/ML 3 ML VIAL (PYX) SUBCUT SCH ×4 (00:10→19:10)
[2020-08-02] MEDS: RINGERS SOLUTION,LACTATED 1,000 ML IV PRN (03:33)
[2020-08-02 05:25] LABS: HEMATOCRIT 30.4 % (37.9-51.0); HEMOGLOBIN 10.7 g/dL (13.5-17.0); MEAN CORPUSCULAR HEMOGLOBIN 30.1 pg (27.0-33.4); MEAN CORPUSCULAR HGB CONC 35.4 g/dL (32.0-36.0); MEAN CORPUSCULAR VOLUME 85 fl (80-97); PLATELET COUNT 162 10^3/uL (150-450); RED BLOOD COUNT 3.57 10^6/uL (4.35-5.55); RED CELL DISTRIBUTION WIDTH 15.4 % (11.5-14.0)
[2020-08-02 06:04] LABS: ALBUMIN 2.1 g/dL (3.5-5.0); ALKALINE PHOSPHATASE 154 U/L (38-126); ANION GAP 18 (5-19); ASPARTATE AMINO TRANSFERASE 88 U/L (17-59); BILIRUBIN,DIRECT 1.3 mg/dL (0.0-0.4); BILIRUBIN,TOTAL 1.4 mg/dL (0.2-1.3); BLOOD UREA NITROGEN 104 mg/dL (7-20); CALCIUM 7.1 mg/dL (8.4-10.2); CARBON DIOXIDE 14 mmol/L (22-30); CHLORIDE 101 mmol/L (98-107); GLUCOSE 177 mg/dL (75-110); POTASSIUM 4.4 mmol/L (3.6-5.0); TOTAL PROTEIN 4.1 g/dL (6.3-8.2)
[2020-08-02] MEDS: METRONIDAZOLE 500 MG/NS RTU 500 MG/100 ML RTUPB IV SCH ×3 (06:08→21:49)
[2020-08-02] MEDS: INSULIN LISPRO 100 UNIT/ML 3 ML VIAL SUBCUT SCH (07:29)
[2020-08-02] MEDS: SODIUM BICARBONATE 650 MG TABLET PO SCH (07:29)
[2020-08-02] MEDS: CALCITRIOL 0.25 MCG CAPSULE PO SCH (07:29)
[2020-08-02] MEDS: MORPHINE SULFATE 10 MG/ML INJ IV PRN (08:13)
[2020-08-02] MEDS ORDERED: RINGERS SOLUTION,LACTATED 1,000 ML IV PRN (08:47)
[2020-08-02] MEDS: PANTOPRAZOLE SODIUM 40 MG VIAL IV SCH ×2 (11:07→21:51)
--- NOTE | 2020-08-02 12:27 | PDOC PROGRESS REPORT ---
Subjective Progress Note for:: 08/02/20 Subjective:: stable, says he feels better Reason For Visit: CHOLEDOCHOLITHIASIS, FALL, DEHYDRATION Physical Exam Vital Signs: Temp Pulse Resp BP Pulse Ox 98.6 F 77 21 H 123/76 93 08/02/20 12:00 08/02/20 12:00 08/02/20 12:00 08/02/20 12:00 08/02/20 12:00 Intake & Output 08/01/20 08/02/20 08/03/20 06:59 06:59 06:59 Intake Total 2450 4750 100 Output Total 1385 30 Balance 2450 3365 70 Weight 60.6 kg 64.7 kg General appearance: PRESENT: no acute distress Head exam: PRESENT: normocephalic Eye exam: PRESENT: EOMI Ear exam: PRESENT: normal external ear exam Mouth exam: PRESENT: moist Teeth exam: PRESENT: poor dentation Neck exam: PRESENT: full ROM Respiratory exam: PRESENT: clear to auscultation deven Cardiovascular exam: PRESENT: RRR Pulses: PRESENT: normal femoral pulses Vascular exam: PRESENT: normal capillary refill Breast: PRESENT: Normal GI/Abdominal exam: PRESENT: soft, other - femi bilous with some blood Rectal exam: PRESENT: deferred Gentrourinary exam: PRESENT: indwelling catheter Extremities exam: PRESENT: full ROM Musculoskeletal exam: PRESENT: full ROM Neurological exam: PRESENT: alert, awake, oriented to person, oriented to place Psychiatric exam: PRESENT: appropriate affect Skin exam: PRESENT: dry Results Laboratory Results: 08/02/20 04:47 08/02/20 04:47 08/01/20 08/01/20 08/01/20 06:57 15:48 15:48 WBC 9.0 RBC 3.96 L Hgb 11.9 L Hct 34.1 L MCV 86 MCH 30.0 MCHC 34.8 RDW 14.7 H Plt Count 133 L Seg Neutrophils % Not Reportable Sodium Cancelled Potassium Cancelled Chloride Cancelled Carbon Dioxide Cancelled Anion Gap Cancelled BUN Cancelled Creatinine Cancelled Est GFR ( Amer) Cancelled Est GFR (Non-Af Amer) Cancelled Glucose Cancelled Calcium Cancelled Magnesium Total Bilirubin Cancelled AST Cancelled Alkaline Phosphatase Cancelled Total Protein Cancelled Albumin Cancelled Lipase Cancelled Blood Type A POSITIVE Antibody Screen NEGATIVE 08/01/20 08/02/20 08/02/20 17:50 04:47 04:47 WBC 11.0 H RBC 3.57 L Hgb 10.7 L Hct 30.4 L MCV 85 MCH 30.1 MCHC 35.4 RDW 15.4 H Plt Count 162 Seg Neutrophils % Sodium 133.6 L 133.0 L Potassium 4.4 4.4 Chloride 101 101 Carbon Dioxide 11 L 14 L Anion Gap 22 H 18 BUN 104 H 104 H Creatinine 5.78 H 5.97 H Est GFR ( Amer) 12 L 11 L Est GFR (Non-Af Amer) Glucose 217 H 177 H Calcium 7.1 L 7.1 L Magnesium 1.8 Total Bilirubin 2.2 H 1.4 H AST 101 H 88 H Alkaline Phosphatase 161 H 154 H Total Protein 4.5 L 4.1 L Albumin 2.2 L 2.1 L Lipase 102.2 Blood Type Antibody Screen 07/28/20 18:30 Troponin I 0.023 Impressions: Abdomen/Pelvis CT 07/28/20 19:15 IMPRESSION: Large calculus located within the gallbladder neck or cystic duct with associated mild intrahepatic biliary duct dilatation, raising the possibility of Mirizzi syndrome. Correlate for obstructive laboratories and suggest confirmation with MRCP. At that time, the additional calcification located about the liver hilum can be reassessed as it is indeterminate. Findings compatible with chronic calcific pancreatitis. However, the pancreatic appears relatively normal in bulk, similar to the previous exam dated 07/29/2015. Small amount of subhepatic free fluid. Small hiatal hernia with circumferential distal esophageal wall thickening. Correlate for esophagitis. TECHNICAL DOCUMENTATION: Quality ID # 436: Final reports with documentation of one or more dose reduction techniques (e.g., Automated exposure control, adjustment of the mA and/or kV according to patient size, use of iterative reconstruction technique) copyright 2011 [employer] All Rights Reserved Abdomen Ultrasound 07/28/20 20:00 IMPRESSION: 1. Gallstones, gallbladder wall thickening, intrahepatic biliary dilatation and nonspecific possible inflammatory material surrounding the gallbladder. These findings are suspicious for acute cholecystitis. Gray's sign was negative but this does not exclude acute cholecystitis. 2. Common bile duct is only mildly dilated. . Question common bile duct stones. 3. Fatty liver. Low position of an atrophic right kidney in the pelvis. Abdomen MRI 07/29/20 04:06 IMPRESSION: 1.1 cm calcific density appears to localize to the common bile duct. The gallbladder is largely decompressed and mild intrahepatic biliary dilatation persists. Associated right upper quadrant inflammatory changes. Other chronic and incidental findings as detailed above. Catheter Placement 07/30/20 00:00 IMPRESSION: IMAGE(S) OBTAINED DURING PROCEDURE. Chest X-Ray 07/31/20 00:00 IMPRESSION: Small amount of medial left basilar subsegmental atelectasis. No pleural effusion. Cholangiogram 08/01/20 00:00 IMPRESSION: IMAGE(S) OBTAINED DURING PROCEDURE. Fluoroscopy 08/01/20 00:00 IMPRESSION: IMAGE(S) OBTAINED DURING PROCEDURE. Assessment & Plan - Time Anticipated Discharge Disposition: Home, Self Care Anticipated Discharge Timeframe: unk - Plan Summary Plan Summary: s/p hepatic jejunostomy renal failure diabetes doing better today pod 1 still iwth poor urine op discussed with Dr Caldera possible dialysis tomorrow] consider lasix today will cont icu care for now h/h stable
[2020-08-02 12:36] LABS: HEPATITIS C QUANTITATION HCV Not Detected IU/mL (.)
--- NOTE | 2020-08-02 13:24 | CRITICAL CARE ADMISSION REPORT ---
HPI Date:: 08/01/20 Time:: 15:48 Reason for ICU Reason:: Acute postoperative hypoxemic respiratory failure; hypotension/shock Admission Date/Time & PCP: Admission Date/Time: 07/30/20 13:37 Primary Care Provider: JOSE HALL MD HPI: This 70-year-old male is seen in consultation at the request of Dr. Benny Schaffer for recommendations on further evaluation and management of acute postoperative hypoxemic respiratory failure and hypotension/shock. The patient is transferred to the ICU from PACU after undergoing attempted laparoscopic cholecystectomy converted to open cholecystectomy with Kapil-en-Y hepaticojejunostomy. In brief, the patient presented on 07/28/2020 with fatigue, malaise, anorexia, nausea/vomiting/diarrhea x2 days in addition to near syncope, resulting in fall on the day of admission. He presented with hypotension, leukocytosis and abnormal LFTs. CT abdomen/pelvis showed cholelithiasis and questionable choledocholithiasis. MRCP revealed a 1 cm stone in the common bile duct. 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 Earlier today (08/01/2020), the patient was taken to the operating theater for surgical exploration and definitive management of biliary obstruction. Discussion with Dr. Schfafer reveals that intraoperative findings revealed significant bile staining of the retroperitoneum behind the pancreas and the duodenum. He also identified a large stone that had eroded the common bile duct. The patient underwent extensive manipulation and required 4 units PRBC, 1 unit FFP, 3 L lactated Ringer's and 500 mL normal saline. Postoperatively, the patient was successfully extubated but did require supplemental oxygen. We were contacted, as the patient was maintaining SPO2 in the 80s on 100% nonrebreather mask. Additionally, the patient was reported to be hypotensive and in need of intermittent phenylephrine administration. At the time of clinical interview, the patient is awake, alert and oriented. He is following commands. He reports reasonable postoperative pain. He is on 4 LPM via nasal cannula with SPO2 93-94%. He is not on vasopressor administration and has a systolic pressure in the 100s. Of note, the patient is known to have chronic kidney disease at the stage IV/V breakpoint, believed to be secondary to type 2 diabetes mellitus. His renal failure prior to surgery was nonoliguric; however, subsequent to surgery, he appears to have become anuric. History obtained from:: Discussion with Dr. Schaffer; patient - Diagnosis/Plan (1) Acute renal failure superimposed on stage 5 chronic kidney disease, not on chronic dialysis Qualifiers: Acute renal failure type: unspecified Qualified Code(s): N17.9 - Acute kidney failure, unspecified; N18.5 - Chronic kidney disease, stage 5 Is this a current diagnosis for this admission?: Yes Plan: * Cautious IV fluid administration. * Maintain SPO2 greater than 93%. (2) Sepsis following intra-abdominal surgery Is this a current diagnosis for this admission?: Yes Plan: * IV fluids: LR at 120 mL/h x 2 L followed by 60 mL/h. Monitor urine output. * Received perioperative cefazolin. Changed to Rocephin. * Continue Flagyl. * Start vancomycin and fluconazole. (3) Type 2 diabetes mellitus with chronic kidney disease and hypertension Is this a current diagnosis for this admission?: Yes Plan: * Sliding scale insulin for now. * Initial blood pressure control, while n.p.o.: Lopressor 5 mg IV every 6 hours scheduled (hold dose for SBP less than 120) * Home diabetes regimen: Glipizide 5 mg p.o. twice daily * Home antihypertensive regimen: Norvasc 10 mg p.o. daily, Tenormin 50 mg p.o. daily, clonidine 0.2 mg p.o. twice daily, benazepril 40 mg p.o. daily (4) Anemia in chronic kidney disease (CKD) Is this a current diagnosis for this admission?: Yes (5) Acute hypoxemic respiratory failure Is this a current diagnosis for this admission?: Yes Plan: * Almost certainly due to postoperative bibasilar atelectasis. * Chest x-ray to rule out pneumonia. * Incentive spirometry. Past Medical History Cardiac Medical History: Reports: Hyperlipidema, Hypertension Denies: Coronary Artery Disease, Myocardial Infarction Pulmonary Medical History: Denies: Asthma, Bronchitis, Chronic Obstructive Pulmonary Disease (COPD), Pneumonia Neurological Medical History: Denies: Seizures Endocrine Medical History: Reports: Diabetes Mellitus Type 2 Musculoskeltal Medical History: Reports: Arthritis Hematology: Denies: Anemia Past Surgical History Past Surgical History: Reports: Orthopedic Surgery - right shoulder Social/Family History - Social History Lives with: Alone Smoking Status: Never Smoker - Medication/Allergies Home Medications: Simvastatin [Zocor 20 mg Tablet] 40 mg PO QHS 09/08/12 Clonidine HCl [Catapres 0.1 mg Tablet] 0.2 mg PO BID 03/21/13 Benazepril HCl 40 mg PO DAILY 07/29/15 Amlodipine Besylate [Norvasc 10 mg Tablet] 10 mg PO DAILY 07/30/20 Atenolol [Tenormin 50 mg Tablet] 50 mg PO DAILY 07/30/20 Glipizide [Glucotrol] 5 mg PO BID 07/30/20 Sodium Bicarbonate [Sodium Bicarbonate 650 mg Tablet] 650 mg PO TID 07/30/20 Allergies/Adverse Reactions: No Known Allergies Allergy (Verified 01/24/19 09:32) Review of Systems Constitutional: ABSENT: chills, fever(s), headache(s), weight gain, weight loss Eyes: ABSENT: visual disturbances Ears: ABSENT: hearing changes Cardiovascular: ABSENT: chest pain, dyspnea on exertion, edema, orthropnea, palpitations Respiratory: ABSENT: cough, hemoptysis Gastrointestinal: ABSENT: abdominal pain, constipation, diarrhea, hematemesis, hematochezia, nausea, vomiting Genitourinary: PRESENT: other - CKD stage IV/V at baseline. ABSENT: dysuria, hematuria Musculoskeletal: ABSENT: joint swelling Integumentary: ABSENT: rash, wounds Neurological: PRESENT: frequent falls. ABSENT: abnormal gait, abnormal speech, confusion, dizziness, focal weakness, syncope Psychiatric: ABSENT: anxiety, depression, homidical ideation, suicidal ideation Endocrine: PRESENT: other - Type 2 diabetes mellitus. ABSENT: cold intolerance, heat intolerance, polydipsia, polyuria Physical Exam Vital Signs: Temp Pulse Resp BP Pulse Ox 97.9 F 72 20 97/62 L 89 L 08/01/20 13:59 08/01/20 14:44 08/01/20 14:44 08/01/20 14:44 08/01/20 14:44 Intake & Output 07/31/20 08/01/20 08/02/20 06:59 06:59 06:59 Intake Total 1800 2450 3500 Output Total 0 840 Balance 1800 2450 2660 Weight 57.4 kg 60.6 kg Weight/Height Weight 60.6 kg Height 1.68 m General appearance: PRESENT: no acute distress, well-developed, well-nourished Head exam: PRESENT: atraumatic, normocephalic Eye exam: PRESENT: conjunctiva pink, EOMI, PERRLA. ABSENT: scleral icterus Ear exam: PRESENT: normal external ear exam Mouth exam: PRESENT: moist, tongue midline Neck exam: ABSENT: carotid bruit, JVD, lymphadenopathy, thyromegaly Respiratory exam: PRESENT: decreased breath sounds - In the bases. ABSENT: rales, rhonchi, wheezes Cardiovascular exam: PRESENT: RRR. ABSENT: diastolic murmur, rubs, systolic murmur Pulses: PRESENT: normal dorsalis pedis pul GI/Abdominal exam: PRESENT: diminished bowel sounds, distended, soft, tenderness. ABSENT: guarding, mass, organolmegaly, rebound Gentrourinary exam: PRESENT: indwelling catheter Extremities exam: PRESENT: full ROM. ABSENT: calf tenderness, clubbing, pedal edema Musculoskeletal exam: PRESENT: normal inspection. ABSENT: deformity Neurological exam: PRESENT: alert, awake, oriented to person, oriented to place, oriented to time, oriented to situation, CN II-XII grossly intact. ABSENT: motor sensory deficit Psychiatric exam: PRESENT: appropriate affect, normal mood. ABSENT: agitated, anxious Skin exam: PRESENT: dry, intact, warm. ABSENT: cyanosis, rash Tubes/Lines: PRESENT: Other - 1 AUBREY drain Laboratory/Radiographs Laboratory Results: 08/01/20 09:58 08/01/20 04:51 07/31/20 08/01/20 08/01/20 18:57 04:51 04:51 WBC 10.7 H RBC 2.20 L Hgb 6.8 L Hct 19.6 L MCV 89 MCH 30.9 MCHC 34.7 RDW 14.7 H Plt Count 247 Retic Count (auto) 2.06 Sodium 136.1 L 133.3 L Potassium 5.2 H D 3.7 D Chloride 100 99 Carbon Dioxide 23 15 L Anion Gap 13 19 BUN 27 H D 112 H D Creatinine 0.58 6.55 H Est GFR ( Amer) > 60 10 L Glucose 253 H 146 H Calcium 9.6 7.1 L Phosphorus 9.0 H Magnesium 2.3 2.0 Iron 41.6 L TIBC 217 L % Saturation 19 Ferritin 543.00 H Total Bilirubin 0.4 1.6 H AST 34 27 Alkaline Phosphatase 132 H 201 H Total Protein 6.2 L 4.4 L Albumin 3.2 L 2.3 L Vitamin B12 978.0 H Folate 10.10 PTH Intact Blood Type Antibody Screen 08/01/20 08/01/20 08/01/20 04:51 06:57 09:58 WBC 11.6 H RBC 3.46 L Hgb 10.6 L D Hct 30.5 L MCV 88 MCH 30.6 MCHC 34.7 RDW 14.4 H Plt Count 193 Retic Count (auto) Sodium Potassium Chloride Carbon Dioxide Anion Gap BUN Creatinine Est GFR ( Amer) Glucose Calcium Phosphorus Magnesium Iron TIBC % Saturation Ferritin Total Bilirubin AST Alkaline Phosphatase Total Protein Albumin Vitamin B12 Folate PTH Intact 318.2 H Blood Type A POSITIVE Antibody Screen NEGATIVE 07/28/20 18:30 Troponin I 0.023 Impressions: Abdomen/Pelvis CT 07/28/20 19:15 IMPRESSION: Large calculus located within the gallbladder neck or cystic duct with associated mild intrahepatic biliary duct dilatation, raising the possibility of Mirizzi syndrome. Correlate for obstructive laboratories and suggest confirmation with MRCP. At that time, the additional calcification located about the liver hilum can be reassessed as it is indeterminate. Findings compatible with chronic calcific pancreatitis. However, the pancreatic appears relatively normal in bulk, similar to the previous exam dated 07/29/2015. Small amount of subhepatic free fluid. Small hiatal hernia with circumferential distal esophageal wall thickening. Correlate for esophagitis. TECHNICAL DOCUMENTATION: Quality ID # [id number]: Final reports with documentation of one or more dose reduction techniques (e.g., Automated exposure control, adjustment of the mA and/or kV according to patient size, use of iterative reconstruction technique) copyright 2011 [employer]- All Rights Reserved Abdomen Ultrasound 07/28/20 20:00 IMPRESSION: 1. Gallstones, gallbladder wall thickening, intrahepatic biliary dilatation and nonspecific possible inflammatory material surrounding the gallbladder. These findings are suspicious for acute cholecystitis. Gray's sign was negative but this does not exclude acute cholecystitis. 2. Common bile duct is only mildly dilated. . Question common bile duct stones. 3. Fatty liver. Low position of an atrophic right kidney in the pelvis. Abdomen MRI 07/29/20 04:06 IMPRESSION: 1.1 cm calcific density appears to localize to the common bile duct. The gallbladder is largely decompressed and mild intrahepatic biliary dilatation persists. Associated right upper quadrant inflammatory changes. Other chronic and incidental findings as detailed above. Catheter Placement 07/30/20 00:00 IMPRESSION: IMAGE(S) OBTAINED DURING PROCEDURE. Chest X-Ray 07/31/20 00:00 IMPRESSION: Small amount of medial left basilar subsegmental atelectasis. No pleural effusion. Cholangiogram 08/01/20 00:00 IMPRESSION: IMAGE(S) OBTAINED DURING PROCEDURE. Fluoroscopy 08/01/20 00:00 IMPRESSION: IMAGE(S) OBTAINED DURING PROCEDURE. All labs, radiographs, diagnostic studies and EKGs were personally reviewed: Yes In addition, reports of radiographic and diagnostic studies were read: Yes Critical Time Critical Time (minutes): 60 -: The care of a critically ill patient is dynamic. This note represents a static moment in the admission process. Orders and treatments may be given simultaneously and urgently, and time is not financial sales representative of the treatment process. This patient requires Critical Care secondary to life threatening organ or limb dysfunction. Without Critical Care services, the patient is at risk for increased mortality and morbidity.
[2020-08-02] MEDS ORDERED: FUROSEMIDE INJ/PF 20 MG/2 ML SDV IV ONE ×2 (14:00→15:00)
--- NOTE | 2020-08-02 15:58 | PDOC CRITICAL CARE PROG REPORT ---
General Date:: 08/02/20 ICU Day:: 2 Hospital Day:: 6 Resuscitation Status: Full Code Events in the past 12 to 24 Hours:: This 70-year-old male was originally seen in consultation on 08/01/[address] the [address] Benny Schaffer for recommendations on further evaluation and management of acute postoperative hypoxemic respiratory failure and hypotension/shock. Patient transferred to the ICU from PACU after undergoing attempted laparoscopic cholecystectomy converted to open cholecystectomy with Kapil-en-Y hepaticojejunostomy. Postoperatively, the patient was hypotensive and hypoxemic. He is known to have chronic kidney disease and was noted to be anuric postoperatively. 08/02: Concern for complicated management in light of hypotension and suspected sepsis prompted transfer to the ICU. However, the patient has actually done surprisingly well. He is off vasopressors (only needing intermittent phenylephrine dosing while in PACU). He is on supplemental oxygen at 6 LPM via nasal cannula, SPO2 94%. He is awake, alert and oriented. He follows commands. He reports reasonable postoperative pain control. Biliary contents are noted in the AUBREY drain. Discussed with Dr. Schaffer. Most importantly, while the patient remained anuretic postoperatively and overnight, the patient has started making some urine during day shift today and is currently producing about 50 mL/h. Review of systems relevant to events:: Vascular: Hypotension/shock Gastrointestinal: Nausea, vomiting, abdominal pain Renal: Anuria Reason for ICU Addmission:: Acute postoperative hypoxemic respiratory failure; hypotension/shock - Medications: Medications reviewed and adjusted accordingly: Yes Physical Exam Vital Signs: Temp Pulse Resp BP Pulse Ox 98.6 F 77 21 H 123/76 93 08/02/20 12:00 08/02/20 12:00 08/02/20 12:00 08/02/20 12:00 08/02/20 12:00 Intake & Output 08/01/20 08/02/20 08/03/20 06:59 06:59 06:59 Intake Total 2450 4750 100 Output Total 1385 120 Balance 2450 3365 -20 Weight 60.6 kg 64.7 kg Weight/Height Weight 64.7 kg Height 1.68 m General appearance: PRESENT: no acute distress, well-developed, well-nourished Head exam: PRESENT: atraumatic, normocephalic Eye exam: PRESENT: conjunctiva pink, EOMI, PERRLA. ABSENT: scleral icterus Mouth exam: PRESENT: moist, tongue midline Neck exam: ABSENT: carotid bruit, JVD, lymphadenopathy, thyromegaly Respiratory exam: PRESENT: clear to auscultation deven. ABSENT: rales, rhonchi, wheezes Cardiovascular exam: PRESENT: RRR. ABSENT: diastolic murmur, rubs, systolic murmur Pulses: PRESENT: normal dorsalis pedis pul GI/Abdominal exam: PRESENT: distended, hypoactive bowel sounds, tenderness, other - Abdominal incisions (supraumbilical, [place]) are clean, dry and intact.. ABSENT: guarding, mass, rebound, rigid Extremities exam: PRESENT: full ROM. ABSENT: calf tenderness, clubbing, pedal edema Musculoskeletal exam: PRESENT: normal inspection. ABSENT: deformity Neurological exam: PRESENT: alert, awake, oriented to person, oriented to place, oriented to time, oriented to situation, reflexes normal, CN II-XII grossly intact. ABSENT: motor sensory deficit Psychiatric exam: ABSENT: agitated, anxious Skin exam: PRESENT: dry, intact, warm. ABSENT: cyanosis, rash Tubes/Lines: PRESENT: Other - AUBREY drain Laboratory/Radiographs Laboratory Results: 08/02/20 04:47 08/02/20 04:47 08/01/20 08/01/20 08/01/20 06:57 15:48 15:48 WBC 9.0 RBC 3.96 L Hgb 11.9 L Hct 34.1 L MCV 86 MCH 30.0 MCHC 34.8 RDW 14.7 H Plt Count 133 L Seg Neutrophils % Not Reportable Sodium Cancelled Potassium Cancelled Chloride Cancelled Carbon Dioxide Cancelled Anion Gap Cancelled BUN Cancelled Creatinine Cancelled Est GFR ( Amer) Cancelled Est GFR (Non-Af Amer) Cancelled Glucose Cancelled Calcium Cancelled Magnesium Total Bilirubin Cancelled AST Cancelled Alkaline Phosphatase Cancelled Total Protein Cancelled Albumin Cancelled Lipase Cancelled Blood Type A POSITIVE Antibody Screen NEGATIVE 08/01/20 08/02/20 08/02/20 17:50 04:47 04:47 WBC 11.0 H RBC 3.57 L Hgb 10.7 L Hct 30.4 L MCV 85 MCH 30.1 MCHC 35.4 RDW 15.4 H Plt Count 162 Seg Neutrophils % Sodium 133.6 L 133.0 L Potassium 4.4 4.4 Chloride 101 101 Carbon Dioxide 11 L 14 L Anion Gap 22 H 18 BUN 104 H 104 H Creatinine 5.78 H 5.97 H Est GFR ( Amer) 12 L 11 L Est GFR (Non-Af Amer) Glucose 217 H 177 H Calcium 7.1 L 7.1 L Magnesium 1.8 Total Bilirubin 2.2 H 1.4 H AST 101 H 88 H Alkaline Phosphatase 161 H 154 H Total Protein 4.5 L 4.1 L Albumin 2.2 L 2.1 L Lipase 102.2 Blood Type Antibody Screen 07/28/20 18:30 Troponin I 0.023 Impressions: Abdomen/Pelvis CT 07/28/20 19:15 IMPRESSION: Large calculus located within the gallbladder neck or cystic duct with associated mild intrahepatic biliary duct dilatation, raising the possibility of Mirizzi syndrome. Correlate for obstructive laboratories and suggest confirmation with MRCP. At that time, the additional calcification located about the liver hilum can be reassessed as it is indeterminate. Findings compatible with chronic calcific pancreatitis. However, the pancreatic appears relatively normal in bulk, similar to the previous exam dated 07/29/2015. Small amount of subhepatic free fluid. Small hiatal hernia with circumferential distal esophageal wall thickening. Correlate for esophagitis. TECHNICAL DOCUMENTATION: Quality ID # 436: Final reports with documentation of one or more dose reduction techniques (e.g., Automated exposure control, adjustment of the mA and/or kV according to patient size, use of iterative reconstruction technique) copyright 2011 [employer]- All Rights Reserved Abdomen Ultrasound 07/28/20 20:00 IMPRESSION: 1. Gallstones, gallbladder wall thickening, intrahepatic biliary dilatation and nonspecific possible inflammatory material surrounding the gallbladder. These findings are suspicious for acute cholecystitis. Gray's sign was negative but this does not exclude acute cholecystitis. 2. Common bile duct is only mildly dilated. . Question common bile duct stones. 3. Fatty liver. Low position of an atrophic right kidney in the pelvis. Abdomen MRI 07/29/20 04:06 IMPRESSION: 1.1 cm calcific density appears to localize to the common bile duct. The gallbladder is largely decompressed and mild intrahepatic biliary dilatation persists. Associated right upper quadrant inflammatory changes. Other chronic and incidental findings as detailed above. Catheter Placement 07/30/20 00:00 IMPRESSION: IMAGE(S) OBTAINED DURING PROCEDURE. Chest X-Ray 07/31/20 00:00 IMPRESSION: Small amount of medial left basilar subsegmental atelectasis. No pleural effusion. Cholangiogram 08/01/20 00:00 IMPRESSION: IMAGE(S) OBTAINED DURING PROCEDURE. Fluoroscopy 08/01/20 00:00 IMPRESSION: IMAGE(S) OBTAINED DURING PROCEDURE. All labs, radiographs, diagnostic studies and EKGs were personally reviewed: Yes In addition, reports of radiographic and diagnostic studies were read: Yes Assessment and Plan - Diagnosis (1) Acute renal failure superimposed on stage 5 chronic kidney disease, not on chronic dialysis Qualifiers: Acute renal failure type: unspecified Qualified Code(s): N17.9 - Acute kidney failure, unspecified; N18.5 - Chronic kidney disease, stage 5 Is this a current diagnosis for this admission?: Yes Plan: * Monitor urine output. * Maintain SpO2 93+%. * As the patient's urine output does seem to be slowly improving, cautious use of diuretics is advised. * Furosemide 20 mg IV every 8 hours x3 doses. (2) Sepsis following intra-abdominal surgery Is this a current diagnosis for this admission?: Yes Plan: * Hemodynamically stable. * Continue Rocephin/Flagyl/vancomycin. (3) Type 2 diabetes mellitus with chronic kidney disease and hypertension Is this a current diagnosis for this admission?: Yes (4) Anemia in chronic kidney disease (CKD) Qualifiers: Chronic kidney disease stage: stage 4 (severe) Qualified Code(s): N18.4 - Chronic kidney disease, stage 4 (severe); D63.1 - Anemia in chronic kidney dis ease Is this a current diagnosis for this admission?: Yes (5) Acute hypoxemic respiratory failure Is this a current diagnosis for this admission?: Yes Plan: * Titrate supplemental oxygen to maintain SpO2 93+ percent. * Incentive spirometry. Critical Time Critical Time (minutes): 90 Level of Care: ICU -: 1. The care of a critical patient is a dynamic process. This note is a construction representative synopsis but static in nature. The timeframe for treatments given in order is not necessarily the actual time these treatments may have been done. 2. This patient requires critical care secondary to ongoing requirements for therapy not offered or safe outside the critical care environment. Transfer to a lower level of care will result in altered life or limb morbidity and mortality. 3. Multidisciplinary rounds completed. 4. ABCDE bundle addressed.
[2020-08-02] MEDS: CEFTRIAXONE 1 GM/D5W RTU 1 GM/50 ML RTUPB IV SCH (19:10)
[2020-08-02] MEDS: FUROSEMIDE INJ/PF 20 MG/2 ML SDV IV SCH (21:51)
[2020-08-03] MEDS: INSULIN REG, HUMAN 100 UNIT/ML 3 ML VIAL (PYX) SUBCUT SCH ×4 (00:45→19:50)
[2020-08-03] MEDS: METOPROLOL TARTRATE PF/INJ 5 MG/5 ML SDV IV SCH ×4 (00:51→19:52)
[2020-08-03] MEDS: METRONIDAZOLE 500 MG/NS RTU 500 MG/100 ML RTUPB IV SCH ×3 (05:51→21:55)
[2020-08-03] MEDS: RINGERS SOLUTION,LACTATED 1,000 ML IV PRN (05:51)
[2020-08-03] MEDS: FUROSEMIDE INJ/PF 20 MG/2 ML SDV IV SCH ×2 (05:52→13:18)
[2020-08-03 07:06] LABS: HEMATOCRIT 28.6 % (37.9-51.0); HEMOGLOBIN 9.8 g/dL (13.5-17.0); MEAN CORPUSCULAR HEMOGLOBIN 29.8 pg (27.0-33.4); MEAN CORPUSCULAR HGB CONC 34.2 g/dL (32.0-36.0); MEAN CORPUSCULAR VOLUME 87 fl (80-97); PLATELET COUNT 184 10^3/uL (150-450); RED BLOOD COUNT 3.29 10^6/uL (4.35-5.55); RED CELL DISTRIBUTION WIDTH 15.3 % (11.5-14.0); WHITE BLOOD COUNT 11.3 10^3/uL (4.0-10.5)
[2020-08-03 07:32] LABS: ALBUMIN 2.1 g/dL (3.5-5.0); ALKALINE PHOSPHATASE 188 U/L (38-126); ASPARTATE AMINO TRANSFERASE 48 U/L (17-59); BILIRUBIN,DIRECT 1.2 mg/dL (0.0-0.4); BILIRUBIN,TOTAL 1.2 mg/dL (0.2-1.3); BLOOD UREA NITROGEN 108 mg/dL (7-20); CALCIUM 7.4 mg/dL (8.4-10.2); CARBON DIOXIDE 12 mmol/L (22-30); GLUCOSE 120 mg/dL (75-110); PHOSPHORUS 10.5 mg/dL (2.5-4.5); POTASSIUM 4.3 mmol/L (3.6-5.0); TOTAL PROTEIN 4.3 g/dL (6.3-8.2)
[2020-08-03 07:38] LABS: CHLORIDE 103 mmol/L (98-107)
--- NOTE | 2020-08-03 07:39 | PDOC PROGRESS REPORT ---
Subjective Progress Note for:: 08/03/20 Subjective:: feels ok increase urine op last pm after lasix x2 Reason For Visit: CHOLEDOCHOLITHIASIS, FALL, DEHYDRATION Physical Exam Vital Signs: Temp Pulse Resp BP Pulse Ox 97.6 F 78 19 124/83 94 08/03/20 03:33 08/03/20 05:55 08/03/20 05:55 08/03/20 05:55 08/03/20 05:55 Intake & Output 08/02/20 08/03/20 08/04/20 06:59 06:59 06:59 Intake Total 4750 1300 Output Total 1385 1760 Balance 3365 -460 Weight 64.7 kg 65.7 kg General appearance: PRESENT: no acute distress Head exam: PRESENT: normocephalic Eye exam: PRESENT: EOMI Ear exam: PRESENT: normal external ear exam Mouth exam: PRESENT: moist Teeth exam: PRESENT: poor dentation Neck exam: PRESENT: full ROM Respiratory exam: PRESENT: clear to auscultation deven Cardiovascular exam: PRESENT: RRR Pulses: PRESENT: normal femoral pulses, normal dorsalis pedis pul GI/Abdominal exam: PRESENT: soft, other - femi bilious , approx 200cc yesterday Rectal exam: PRESENT: deferred Gentrourinary exam: PRESENT: indwelling catheter Extremities exam: PRESENT: full ROM Musculoskeletal exam: PRESENT: full ROM Neurological exam: PRESENT: alert, awake, oriented to person, oriented to place, oriented to time, oriented to situation, reflexes normal Psychiatric exam: PRESENT: appropriate affect Skin exam: PRESENT: dry Results Laboratory Results: 08/03/20 06:53 08/03/20 06:53 08/01/20 08/03/20 08/03/20 06:57 06:53 06:53 WBC 11.3 H RBC 3.29 L Hgb 9.8 L Hct 28.6 L MCV 87 MCH 29.8 MCHC 34.2 RDW 15.3 H Plt Count 184 Sodium Cancelled Potassium Cancelled Chloride Cancelled Carbon Dioxide Cancelled Anion Gap Cancelled BUN Cancelled Creatinine Cancelled Est GFR ( Amer) Cancelled Est GFR (Non-Af Amer) Cancelled Glucose Cancelled Calcium Cancelled Total Bilirubin Cancelled AST Cancelled Alkaline Phosphatase Cancelled Total Protein Cancelled Albumin Cancelled Blood Type A POSITIVE Antibody Screen NEGATIVE 07/28/20 22:07 Blood Blood Culture - Final NO GROWTH IN 5 DAYS 07/28/20 22:00 Blood Blood Culture - Final NO GROWTH IN 5 DAYS 07/28/20 18:30 Troponin I 0.023 Impressions: Abdomen/Pelvis CT 07/28/20 19:15 IMPRESSION: Large calculus located within the gallbladder neck or cystic duct with associated mild intrahepatic biliary duct dilatation, raising the possibility of Mirizzi syndrome. Correlate for obstructive laboratories and suggest confirmation with MRCP. At that time, the additional calcification located about the liver hilum can be reassessed as it is indeterminate. Findings compatible with chronic calcific pancreatitis. However, the pancreatic appears relatively normal in bulk, similar to the previous exam dated 07/29/2015. Small amount of subhepatic free fluid. Small hiatal hernia with circumferential distal esophageal wall thickening. Correlate for esophagitis. TECHNICAL DOCUMENTATION: Quality ID # 436: Final reports with documentation of one or more dose reduction techniques (e.g., Automated exposure control, adjustment of the mA and/or kV according to patient size, use of iterative reconstruction technique) copyright 2011 [employer]- All Rights Reserved Abdomen Ultrasound 07/28/20 20:00 IMPRESSION: 1. Gallstones, gallbladder wall thickening, intrahepatic biliary dilatation and nonspecific possible inflammatory material surrounding the gallbladder. These findings are suspicious for acute cholecystitis. Gray's sign was negative but this does not exclude acute cholecystitis. 2. Common bile duct is only mildly dilated. . Question common bile duct stones. 3. Fatty liver. Low position of an atrophic right kidney in the pelvis. Abdomen MRI 07/29/20 04:06 IMPRESSION: 1.1 cm calcific density appears to localize to the common bile duct. The gallbladder is largely decompressed and mild intrahepatic biliary dilatation persists. Associated right upper quadrant inflammatory changes. Other chronic and incidental findings as detailed above. Catheter Placement 07/30/20 00:00 IMPRESSION: IMAGE(S) OBTAINED DURING PROCEDURE. Cholangiogram 08/01/20 00:00 IMPRESSION: IMAGE(S) OBTAINED DURING PROCEDURE. Fluoroscopy 08/01/20 00:00 IMPRESSION: IMAGE(S) OBTAINED DURING PROCEDURE. Assessment & Plan - Time Anticipated Discharge Disposition: Home, Self Care Anticipated Discharge Timeframe: unk - Plan Summary Plan Summary: remains stable lytes this am pending pt may require dialysis today awaiting nephrology will cont icu till that decision is made my need access. cont npo awaiting return of bowel function physicial therapy
[2020-08-03 07:46] LABS: ANION GAP 21 (5-19)
--- NOTE | 2020-08-03 09:22 | PDOC CRITICAL CARE PROG REPORT ---
General Date:: 08/03/20 ICU Day:: 2 Hospital Day:: 3 Resuscitation Status: Full Code Events in the past 12 to 24 Hours:: Stable. Needs to mobilize Review of systems relevant to events:: GI, renal. Reason for ICU Addmission:: Acute postoperative hypoxemic respiratory failure; hypotension/shock, all improved. - Medications: Medications reviewed and adjusted accordingly: Yes Vasopressors:: None Sedation:: None Physical Exam Vital Signs: Temp Pulse Resp BP Pulse Ox 97.8 F 79 17 126/75 H 93 08/03/20 08:00 08/03/20 07:47 08/03/20 08:21 08/03/20 08:21 08/03/20 08:21 Intake & Output 08/02/20 08/03/20 08/04/20 06:59 06:59 06:59 Intake Total 4750 1300 Output Total 1385 1760 125 Balance 3365 -460 -125 Weight 64.7 kg 65.7 kg Weight/Height Weight 65.7 kg Height 5 ft 6 in General appearance: PRESENT: no acute distress, cooperative, thin Head exam: PRESENT: atraumatic, normocephalic Eye exam: PRESENT: conjunctiva pink, EOMI, PERRLA. ABSENT: scleral icterus Ear exam: PRESENT: normal external ear exam Mouth exam: PRESENT: moist, tongue midline Respiratory exam: PRESENT: clear to auscultation deven. ABSENT: rales, rhonchi, wheezes Cardiovascular exam: PRESENT: RRR. ABSENT: diastolic murmur, rubs, systolic murmur GI/Abdominal exam: PRESENT: diminished bowel sounds, hypoactive bowel sounds, other - Drain with serosanguinous bilious drainage. Rectal exam: PRESENT: deferred Gentrourinary exam: PRESENT: indwelling catheter Extremities exam: PRESENT: full ROM. ABSENT: calf tenderness, clubbing, pedal edema Musculoskeletal exam: PRESENT: normal inspection Neurological exam: PRESENT: alert, awake, oriented to person, oriented to place, oriented to time, oriented to situation, CN II-XII grossly intact. ABSENT: motor sensory deficit Psychiatric exam: PRESENT: appropriate affect, normal mood. ABSENT: homicidal ideation, suicidal ideation Skin exam: PRESENT: dry, intact, warm. ABSENT: cyanosis, rash Laboratory/Radiographs Laboratory Results: 08/03/20 06:53 08/03/20 06:53 08/01/20 08/03/20 08/03/20 06:57 06:53 06:53 WBC RBC Hgb Hct MCV MCH MCHC RDW Plt Count Sodium Cancelled 135.9 L Potassium Cancelled 4.3 Chloride Cancelled 103 Carbon Dioxide Cancelled 12 L Anion Gap Cancelled 21 H BUN Cancelled 108 H Creatinine Cancelled 6.26 H Est GFR ( Amer) Cancelled 11 L Est GFR (Non-Af Amer) Cancelled Glucose Cancelled 120 H Calcium Cancelled 7.4 L Phosphorus 10.5 H Magnesium 2.0 Total Bilirubin Cancelled 1.2 AST Cancelled 48 Alkaline Phosphatase Cancelled 188 H Total Protein Cancelled 4.3 L Albumin Cancelled 2.1 L Blood Type A POSITIVE Antibody Screen NEGATIVE 08/03/20 06:53 WBC 11.3 H RBC 3.29 L Hgb 9.8 L Hct 28.6 L MCV 87 MCH 29.8 MCHC 34.2 RDW 15.3 H Plt Count 184 Sodium Potassium Chloride Carbon Dioxide Anion Gap BUN Creatinine Est GFR ( Amer) Est GFR (Non-Af Amer) Glucose Calcium Phosphorus Magnesium Total Bilirubin AST Alkaline Phosphatase Total Protein Albumin Blood Type Antibody Screen 07/28/20 22:07 Blood Blood Culture - Final NO GROWTH IN 5 DAYS 07/28/20 22:00 Blood Blood Culture - Final NO GROWTH IN 5 DAYS 07/28/20 18:30 Troponin I 0.023 Impressions: Abdomen/Pelvis CT 07/28/20 19:15 IMPRESSION: Large calculus located within the gallbladder neck or cystic duct with associated mild intrahepatic biliary duct dilatation, raising the possibility of Mirizzi syndrome. Correlate for obstructive laboratories and suggest confirmation with MRCP. At that time, the additional calcification located about the liver hilum can be reassessed as it is indeterminate. Findings compatible with chronic calcific pancreatitis. However, the pancreatic appears relatively normal in bulk, similar to the previous exam dated 07/29/2015. Small amount of subhepatic free fluid. Small hiatal hernia with circumferential distal esophageal wall thickening. Correlate for esophagitis. TECHNICAL DOCUMENTATION: Quality ID # 436: Final reports with documentation of one or more dose reduction techniques (e.g., Automated exposure control, adjustment of the mA and/or kV according to patient size, use of iterative reconstruction technique) copyright 2011 [email or web address]- All Rights Reserved Abdomen Ultrasound 07/28/20 20:00 IMPRESSION: 1. Gallstones, gallbladder wall thickening, intrahepatic biliary dilatation and nonspecific possible inflammatory material surrounding the gallbladder. These findings are suspicious for acute cholecystitis. Gray's sign was negative but this does not exclude acute cholecystitis. 2. Common bile duct is only mildly dilated. . Question common bile duct stones. 3. Fatty liver. Low position of an atrophic right kidney in the pelvis. Abdomen MRI 07/29/20 04:06 IMPRESSION: 1.1 cm calcific density appears to localize to the common bile duct. The gallbladder is largely decompressed and mild intrahepatic biliary dilatation persists. Associated right upper quadrant inflammatory changes. Other chronic and incidental findings as detailed above. Catheter Placement 07/30/20 00:00 IMPRESSION: IMAGE(S) OBTAINED DURING PROCEDURE. Cholangiogram 08/01/20 00:00 IMPRESSION: IMAGE(S) OBTAINED DURING PROCEDURE. Fluoroscopy 08/01/20 00:00 IMPRESSION: IMAGE(S) OBTAINED DURING PROCEDURE. All labs, radiographs, diagnostic studies and EKGs were personally reviewed: Yes In addition, reports of radiographic and diagnostic studies were read: Yes Assessment and Plan - Diagnosis (1) CKD (chronic kidney disease), stage V Is this a current diagnosis for this admission?: Yes Plan: Dr. Hill is of the opinion he christina need HD now. Cr 6.25, GFR 11. Dr Schaffer will place catheter and then we can downgrade. (2) Chronic cholecystitis due to cholelithiasis with choledocholithiasis Is this a current diagnosis for this admission?: Yes Plan: He is S/P bile duct repair. He is stable. Routine post-op care. 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 Plan Summary: HD catheter and then downgrade to surgical floor. Critical Time Critical Time (minutes): 35 Level of Care: ICU Anticipated discharge: Home Anticipated DC Timeframe: Other -: 1. The care of a critical patient is a dynamic process. This note is a technology sales representative synopsis but static in nature. The timeframe for treatments given in order is not necessarily the actual time these treatments may have been done. 2. This patient requires critical care secondary to ongoing requirements for therapy not offered or safe outside the critical care environment. Transfer to a lower level of care will result in altered life or limb morbidity and mortality. 3. Multidisciplinary rounds completed. 4. ABCDE bundle addressed.
[2020-08-03] MEDS ORDERED: NORMAL SALINE 1000 ML 1,000 ML IV PRN (09:33)
[2020-08-03] MEDS ORDERED: HEPARIN SOD (PORCINE) 1,000 UNIT/ML 10 ML VIAL IV PRN (09:33)
[2020-08-03] MEDS ORDERED: EPOETIN ALFA-EPBX 10,000 UNIT in SYRINGE, DISPOSABLE, 1 EACH IV PRN (10:15)
--- NOTE | 2020-08-03 10:29 | RADIOLOGY REPORT (SQ) ---
EXAM DESCRIPTION: CHEST SINGLE VIEW IMAGES COMPLETED DATE/TIME: 08/03/2020 5:38 am REASON FOR STUDY: ETT tube COMPARISON: 07/31/2020 NUMBER OF VIEWS: One view. TECHNIQUE: Single frontal radiographic image of the chest acquired. LIMITATIONS: None. FINDINGS: LUNGS AND PLEURA: Small left pleural effusion. No infiltrate. MEDIASTINUM AND HEART: Stable heart size and mediastinal structures. BONY STRUCTURES: No acute findings. HARDWARE: Right shoulder arthroplasty. OTHER: No other significant finding. IMPRESSION: Small left pleural effusion. TECHNICAL DOCUMENTATION: JOB ID: [id number] Reading location - IP/workstation name: [email or web address]
[2020-08-03] MEDS ORDERED: TUBERCULIN,PURIF.PROT.DERIV. 5 TU/0.1 ML TEST 1 ML VIAL ID ONE (11:00)
[2020-08-03] MEDS: HEPARIN SOD (PORCINE) 5,000 UNIT/ML 1 ML VIAL SUBCUT SCH ×2 (13:18→21:45)
--- NOTE | 2020-08-03 14:15 | Operative Report ---
Nonrecallable Operative Report DATE OF SURGERY: 08/03/20 PREOPERATIVE DIAGNOSIS: renal failure POSTOPERATIVE DIAGNOSIS: renal failure OPERATION: trialysis catheter placement SURGEON: MADDY CLAYTON ANESTHESIA: Local TISSUE REMOVED OR ALTERED: none COMPLICATIONS: none ESTIMATED BLOOD LOSS: 30cc INTRAOPERATIVE FINDINGS: see note PROCEDURE: This procedure was done with the patient in the intensive care unit bed. After appropriate prep and drape and site verification the procedure commenced. Using 1% lidocaine plain the area over the femoral vein was anesthetized. The vein was then cannulated with a 16-gauge needle and through the needle a wire was placed into the inferior vena cava. The serial dilators were then placed over the wire and they were removed. We then used the dialysis catheter placed over the wire and manipulated into the inferior vena cava. The wire was removed. The catheter had good flow. The catheter was fixed in place with 3-0 nylon suture. It was irrigated with a normal saline solution. A sterile dressing applied. This completed the procedure.
[2020-08-03] MEDS: PANTOPRAZOLE SODIUM 40 MG VIAL IV SCH (14:53)
--- NOTE | 2020-08-03 16:33 | PDOC PROGRESS REPORT ---
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 Initial evaluation in the ED showed the patient was hypertensive with leukocytosis and elevated bilirubin and transaminase including alkaline phosphatase. CT of the abdomen showed cholelithiasis with questionable choledocholithiasis. On 07/30/2020 he underwent ERCP by Dr. 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 On 08/01/2020 he underwent laparoscopic cholecystectomy which was converted to open cholecystectomy with Kapil-en-Y hepatic jejunostomy by Dr. Schaffer. Postoperatively he was admitted in the ICU for closer monitoring. He had acute hypoxemic respiratory failure and hypotension postoperatively. He was successfully extubated though. He required 4 units of packed RBC, 1 unit FFP and 3 L of lactated Ringer's and 500 mL of normal saline. Apparently there was significant bile staining of the retroperitoneum behind the pancreas and the duodenum. He was started on metronidazole, ceftriaxone, vancomycin and fluconazole. Over the weekend the patient was monitored while in the ICU and surprisingly did well. The patient came in with a BUN of 56 and creatinine of 4.46. On July 31 his BUN went as high as 112 with creatinine of 6.67. He was almost anuric at that time and Dr. Barragan who was seen him then attempted to dialyze him before surgery but unfortunately was not able to get vascular access. Over the weekend he started passing some urine anywhere between 510 to 975 mL for the last 48 hours. Today he has a BUN of 108, creatinine was 6.26 with a GFR of 9. His bicarbonate is very low at 12. Corrected calcium of 8.92, and phosphorus of 10.5. His PTH was 318.2 on 08/01/2020. His hemoglobin is 9.8. His iron was 41.6, iron saturation of 19% with ferritin of 543. This morning he tells me that he feels wonderful. He denies any pain, nausea, vomiting, shortness of breath nor chest pains. He is awake and communicating well like his normal self. 4:10 PM. I am seeing the patient during his first dialysis treatment. A temporary dialysis catheter was placed by Dr. Schaffer successfully. So far he is tolerating dialysis. His initial blood pressure is on the low side so we are going to hold off on any ultrafiltration today. We are dialyzing him slowly for the first time. Patient is comfortable. He has no questions. Reason For Visit: CHOLEDOCHOLITHIASIS, FALL, DEHYDRATION Physical Exam Vital Signs: Temp Pulse Resp BP Pulse Ox 97.8 F 79 17 126/75 H 93 08/03/20 08:00 08/03/20 07:47 08/03/20 08:21 08/03/20 08:21 08/03/20 08:21 Intake & Output 08/02/20 08/03/20 08/04/20 06:59 06:59 06:59 Intake Total 4750 1300 Output Total 1385 1760 125 Balance 3365 -460 -125 Weight 64.7 kg 65.7 kg Vitals during dialysis: Blood pressure 95/65, heart rate of 81, blood flow rate of 250ml/minute and dialysate flow rate of 600 mL/min. Exam: General appearance: PRESENT: no acute distress, cooperative, well-developed, well-nourished Head exam: PRESENT: atraumatic, normocephalic Eye exam: PRESENT: conjunctiva pale, PERRLA. ABSENT: scleral icterus Neck exam: ABSENT: JVD Respiratory exam: PRESENT: Diminished breath sounds. ABSENT: crackles, rales, rhonchi, unlabored, wheezes Cardiovascular exam: PRESENT: Regular rate rhythm -+S1, +S2. Grade 2/6 systolic murmur GI/Abdominal exam: PRESENT: no bowel sounds, soft. ABSENT: guarding, mass, tenderness Extremities exam: Trace lower extremity edema and upper extremity edema Neurological exam: PRESENT: alert, awake, oriented to person, place and time. Skin exam: PRESENT: dry, warm, pallor Cardiovascular exam: PRESENT: +S1, +S2 GI/Abdominal exam: PRESENT: normal bowel sounds, soft, tenderness - Mildly tender in the right upper quadrant.. ABSENT: organomegaly Results Laboratory Results: 08/03/20 06:53 08/03/20 06:53 08/01/20 08/03/2020 06:57 06:53 06:53 WBC RBC Hgb Hct MCV MCH MCHC RDW Plt Count Sodium Cancelled 135.9 L Potassium Cancelled 4.3 Chloride Cancelled 103 Carbon Dioxide Cancelled 12 L Anion Gap Cancelled 21 H BUN Cancelled 108 H Creatinine Cancelled 6.26 H Est GFR ( Amer) Cancelled 11 L Est GFR (Non-Af Amer) Cancelled Glucose Cancelled 120 H Calcium Cancelled 7.4 L Phosphorus 10.5 H Magnesium 2.0 Total Bilirubin Cancelled 1.2 AST Cancelled 48 Alkaline Phosphatase Cancelled 188 H Total Protein Cancelled 4.3 L Albumin Cancelled 2.1 L Blood Type A POSITIVE Antibody Screen NEGATIVE 08/03/20 06:53 WBC 11.3 H RBC 3.29 L Hgb 9.8 L Hct 28.6 L MCV 87 MCH 29.8 MCHC 34.2 RDW 15.3 H Plt Count 184 Sodium Potassium Chloride Carbon Dioxide Anion Gap BUN Creatinine Est GFR ( Amer) Est GFR (Non-Af Amer) Glucose Calcium Phosphorus Magnesium Total Bilirubin AST Alkaline Phosphatase Total Protein Albumin Blood Type Antibody Screen 07/28/20 22:07 Blood Blood Culture - Final NO GROWTH IN 5 DAYS 07/28/20 22:00 Blood Blood Culture - Final NO GROWTH IN 5 DAYS 07/28/20 18:30 Troponin I 0.023 Impressions: Abdomen/Pelvis CT 07/28/20 19:15 IMPRESSION: Large calculus located within the gallbladder neck or cystic duct with associated mild intrahepatic biliary duct dilatation, raising the possibility of Mirizzi syndrome. Correlate for obstructive laboratories and suggest confirmation with MRCP. At that time, the additional calcification located about the liver hilum can be reassessed as it is indeterminate. Findings compatible with chronic calcific pancreatitis. However, the pancreatic appears relatively normal in bulk, similar to the previous exam dated 07/29/2015. Small amount of subhepatic free fluid. Small hiatal hernia with circumferential distal esophageal wall thickening. Correlate for esophagitis. TECHNICAL DOCUMENTATION: Quality ID # 436: Final reports with documentation of one or more dose reduction techniques (e.g., Automated exposure control, adjustment of the mA and/or kV according to patient size, use of iterative reconstruction technique) copyright 2011 [email or web address]- All Rights Reserved Abdomen Ultrasound 07/28/20 20:00 IMPRESSION: 1. Gallstones, gallbladder wall thickening, intrahepatic biliary dilatation and nonspecific possible inflammatory material surrounding the gallbladder. These findings are suspicious for acute cholecystitis. Gray's sign was negative but this does not exclude acute cholecystitis. 2. Common bile duct is only mildly dilated. . Question common bile duct stones. 3. Fatty liver. Low position of an atrophic right kidney in the pelvis. Abdomen MRI 07/29/20 04:06 IMPRESSION: 1.1 cm calcific density appears to localize to the common bile duct. The gallbladder is largely decompressed and mild intrahepatic biliary dilatation persists. Associated right upper quadrant inflammatory changes. Other chronic and incidental findings as detailed above. Catheter Placement 07/30/20 00:00 IMPRESSION: IMAGE(S) OBTAINED DURING PROCEDURE. Cholangiogram 08/01/20 00:00 IMPRESSION: IMAGE(S) OBTAINED DURING PROCEDURE. Fluoroscopy 08/01/20 00:00 IMPRESSION: IMAGE(S) OBTAINED DURING PROCEDURE. Assessment & Plan - Diagnosis (1) CKD (chronic kidney disease), stage V Is this a current diagnosis for this admission?: Yes Plan: Secondary to diabetic nephropathy with known proteinuria. I believe the patient is now reach ESRD and would require chronic long-term dialysis treatment. When I last saw him a year ago he was on the verge of going to ESRD with all complications associated with it. Patient is currently still oliguric although improved from last week prior to surgery. Today explained to the patient again regarding the process of doing dialysis, its benefits and complications including but not limited to infection, bleeding, hemodynamic instability including cardiac arrest and patient understood and wishes to proceed. I also explained to him that this probably going to need chronic dialysis treatment moving forward and just that we have been discussing this for the last couple of years, it is almost expected and he understood. We will do dialysis today for 2 hours, using the patient's trialysis catheter, with 2 potassium bath, blood flow rate of 250 mL per minute, dialysate flow rate of 600 mL per minute, ultrafiltration 0-0.5 MLS tolerated, no heparin and Retacrit with 10,000 units during dialysis intravenously. Patient is currently being monitored carefully. Next dialysis will be on Monday. For planning, I am going to ask case management to arrange outpatient chronic hemodialysis treatment at [facility] upon discharge. Patient will also need permacath placement which I talked to Dr. Schaffer about. He states that he will place it once he is recovered nearing discharge. (2) Acute renal failure superimposed on stage 5 chronic kidney disease, not on chronic dialysis Qualifiers: Acute renal failure type: unspecified Qualified Code(s): N17.9 - Acute kidney failure, unspecified; N18.5 - Chronic kidney disease, stage 5 Is this a current diagnosis for this admission?: Yes Plan: Patient's kidney function has gotten worse this admission due to his acute illness which puts him more to ESRD from CKD 5. Plan as above. (3) Metabolic acidosis Is this a current diagnosis for this admission?: Yes Plan: Severe anion gap metabolic acidosis secondary to uremia/ESRD/abdominal sepsis. Currently on oral sodium bicarbonate. Renal replacement therapy with hemodialysis will help with this as well slowly. (4) Sepsis following intra-abdominal surgery Is this a current diagnosis for this admission?: Yes Plan: Blood cultures were negative. He was given a dose of Zosyn initially. Currently on ceftriaxone, metronidazole and vancomycin. (5) Chronic cholecystitis due to cholelithiasis with choledocholithiasis Is this a current diagnosis for this admission?: Yes Plan: Status post cholecystectomy initially laparoscopic converted to open procedure on 08/01/2020. Status post ERCP on 07/30/2020. (6) Type 2 diabetes mellitus Is this a current diagnosis for this admission?: Yes Plan: Currently controlled. (7) Anemia in chronic kidney disease (CKD) Qualifiers: Chronic kidney disease stage: stage 4 (severe) Qualified Code(s): N18.4 - Chronic kidney disease, stage 4 (severe); D63.1 - Anemia in chronic kidney disease Is this a current diagnosis for this admission?: Yes Plan: Patient has chronic anemia of chronic kidney disease and has refused to take NOELLE therapy for the past 1 to 2 years. Currently his iron is also low at 41.6, TSAT19 and ferritin of 543. He was given blood transfusions last week. I will give Retacrit during dialysis treatment. (8) Chronic kidney disease-mineral and bone disorder Is this a current diagnosis for this admission?: Yes Plan: Phosphorus is 10.5 with PTH of 318.2 and normal corrected calcium. Once the patient is taking medications orally he would need phosphorus binder and vitamin D analogs. We will hold for now. (9) Essential hypertension Is this a current diagnosis for this admission?: Yes Plan: Relatively low today. (10) Acute hypoxemic respiratory failure Is this a current diagnosis for this admission?: Yes Plan: Resolved. - Notes Notes: Discussed with Dr. Kelly and Dr. Schaffer earlier today.
[2020-08-03] MEDS: CEFTRIAXONE 1 GM/D5W RTU 1 GM/50 ML RTUPB IV SCH (19:57)
[2020-08-03] MEDS ORDERED: VANCOMYCIN HCL 500 MG in DEXTROSE 5%-WATER 100 ML IV SCH (20:00)
[2020-08-04] MEDS: INSULIN REG, HUMAN 100 UNIT/ML 3 ML VIAL (PYX) SUBCUT SCH ×4 (01:24→17:46)
[2020-08-04] MEDS: METOPROLOL TARTRATE PF/INJ 5 MG/5 ML SDV IV SCH ×4 (01:31→18:38)
[2020-08-04] MEDS: HEPARIN SOD (PORCINE) 5,000 UNIT/ML 1 ML VIAL SUBCUT SCH ×3 (06:01→21:34)
[2020-08-04] MEDS: METRONIDAZOLE 500 MG/NS RTU 500 MG/100 ML RTUPB IV SCH ×3 (06:02→21:34)
[2020-08-04 08:20] LABS: ALBUMIN 2.1 g/dL (3.5-5.0); ALKALINE PHOSPHATASE 219 U/L (38-126); ASPARTATE AMINO TRANSFERASE 39 U/L (17-59); CALCIUM 7.3 mg/dL (8.4-10.2); CHLORIDE 101 mmol/L (98-107); GLUCOSE 93 mg/dL (75-110); POTASSIUM 4.2 mmol/L (3.6-5.0); TOTAL PROTEIN 4.1 g/dL (6.3-8.2)
[2020-08-04 08:25] LABS: CARBON DIOXIDE 12 mmol/L (22-30)
[2020-08-04 08:34] LABS: ANION GAP 23 (5-19); BLOOD UREA NITROGEN 76 mg/dL (7-20)
--- NOTE | 2020-08-04 08:49 | PDOC PROGRESS REPORT ---
Subjective Progress Note for:: 08/04/20 Subjective:: awake, comfortable Reason For Visit: CHOLEDOCHOLITHIASIS, FALL, DEHYDRATION Physical Exam Vital Signs: Temp Pulse Resp BP Pulse Ox 98.0 F 84 20 140/68 H 96 08/04/20 04:00 08/04/20 04:00 08/04/20 04:00 08/04/20 04:00 08/04/20 04:00 Intake & Output 08/03/20 08/04/20 08/05/20 06:59 06:59 06:59 Intake Total 1450 200 Output Total 1940 635 Balance -490 -435 Weight 65.7 kg 68.2 kg General appearance: PRESENT: no acute distress Head exam: PRESENT: normocephalic Eye exam: PRESENT: EOMI Ear exam: PRESENT: normal external ear exam Mouth exam: PRESENT: moist Teeth exam: PRESENT: poor dentation Neck exam: PRESENT: full ROM Respiratory exam: PRESENT: clear to auscultation deven Cardiovascular exam: PRESENT: RRR Pulses: PRESENT: normal radial pulses, normal femoral pulses Vascular exam: PRESENT: normal capillary refill Breast: PRESENT: Normal GI/Abdominal exam: PRESENT: soft, other - femi bilious Rectal exam: PRESENT: deferred Gentrourinary exam: PRESENT: indwelling catheter Extremities exam: PRESENT: full ROM Musculoskeletal exam: PRESENT: full ROM Neurological exam: PRESENT: alert, awake, oriented to person, oriented to place Skin exam: PRESENT: dry Results Laboratory Results: 08/03/20 06:53 08/04/20 06:20 08/01/20 08/04/20 06:57 06:20 Sodium 135.7 L Potassium 4.2 Chloride 101 Carbon Dioxide 12 L Anion Gap 23 H BUN 76 H D Creatinine 5.44 H Est GFR ( Amer) 13 L Glucose 93 Calcium 7.3 L Total Bilirubin 1.0 AST 39 Alkaline Phosphatase 219 H Total Protein 4.1 L Albumin 2.1 L Blood Type A POSITIVE Antibody Screen NEGATIVE 07/28/20 18:30 Troponin I 0.023 Impressions: Abdomen/Pelvis CT 07/28/20 19:15 IMPRESSION: Large calculus located within the gallbladder neck or cystic duct with associated mild intrahepatic biliary duct dilatation, raising the possibility of Mirizzi syndrome. Correlate for obstructive laboratories and suggest confirmation with MRCP. At that time, the additional calcification located about the liver hilum can be reassessed as it is indeterminate. Findings compatible with chronic calcific pancreatitis. However, the pancreatic appears relatively normal in bulk, similar to the previous exam dated 07/29/2015. Small amount of subhepatic free fluid. Small hiatal hernia with circumferential distal esophageal wall thickening. Correlate for esophagitis. TECHNICAL DOCUMENTATION: Quality ID # 436: Final reports with documentation of one or more dose reduction techniques (e.g., Automated exposure control, adjustment of the mA and/or kV according to patient size, use of iterative reconstruction technique) copyright 2011 [employer]- All Rights Reserved Abdomen Ultrasound 07/28/20 20:00 IMPRESSION: 1. Gallstones, gallbladder wall thickening, intrahepatic biliary dilatation and nonspecific possible inflammatory material surrounding the gallbladder. These findings are suspicious for acute cholecystitis. Gray's sign was negative but this does not exclude acute cholecystitis. 2. Common bile duct is only mildly dilated. . Question common bile duct stones. 3. Fatty liver. Low position of an atrophic right kidney in the pelvis. Abdomen MRI 07/29/20 04:06 IMPRESSION: 1.1 cm calcific density appears to localize to the common bile duct. The gallbladder is largely decompressed and mild intrahepatic biliary dilatation persists. Associated right upper quadrant inflammatory changes. Other chronic and incidental findings as detailed above. Catheter Placement 07/30/20 00:00 IMPRESSION: IMAGE(S) OBTAINED DURING PROCEDURE. Cholangiogram 08/01/20 00:00 IMPRESSION: IMAGE(S) OBTAINED DURING PROCEDURE. Fluoroscopy 08/01/20 00:00 IMPRESSION: IMAGE(S) OBTAINED DURING PROCEDURE. Chest X-Ray 08/03/20 05:00 IMPRESSION: Small left pleural effusion. Assessment & Plan - Time Anticipated Discharge Disposition: Home, Self Care Anticipated Discharge Timeframe: unk - Plan Summary Plan Summary: underwent dialysis yesterday this am with very little urine op pt stable awaiting return of bowel funcition will start clears today.
[2020-08-04] MEDS: PANTOPRAZOLE SODIUM 40 MG VIAL IV SCH (11:35)
[2020-08-04] MEDS: MORPHINE SULFATE 10 MG/ML INJ IV PRN (12:05)
[2020-08-04] MEDS: RINGERS SOLUTION,LACTATED 1,000 ML IV PRN (12:07)
[2020-08-04] MEDS: METOCLOPRAMIDE HCL INJ/PF 10 MG/2 ML SDV IV SCH ×2 (15:37→21:33)
[2020-08-04] MEDS ORDERED: BISACODYL 10 MG SUPP.RECT PR PRN (16:44)
[2020-08-04] MEDS ORDERED: BISACODYL 5 MG TABEC PO PRN (16:44)
--- NOTE | 2020-08-04 16:54 | PDOC PROGRESS REPORT ---
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 Initial evaluation in the ED showed the patient was hypertensive with leukocytosis and elevated bilirubin and transaminase including alkaline phosphatase. CT of the abdomen showed cholelithiasis with questionable choled ocholithiasis. On 07/30/2020 he underwent ERCP by Dr. 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 On 08/01/2020 he underwent laparoscopic cholecystectomy which was converted to open cholecystectomy with Kapil-en-Y hepatic jejunostomy by Dr. Schaffer. Postoperatively he was admitted in the ICU for closer monitoring. He had acute hypoxemic respiratory failure and hypotension postoperatively. He was successfully extubated though. He required 4 units of packed RBC, 1 unit FFP and 3 L of lactated Ringer's and 500 mL of normal saline. Apparently there was significant bile staining of the retroperitoneum behind the pancreas and the duodenum. He was started on metronidazole, ceftriaxone, vancomycin and fluconazole. Over the weekend the patient was monitored while in the ICU and surprisingly did well." 08/04/2020 Patient popped out of ICU overnight. Creatinine lower today. Blood cultures negative. Patient states he has not had a bowel movement yet and would like a bowel regimen started. He does have some abdominal pain from his recent surgery but other than that he has no new complaints. General surgery is following. Reason For Visit: CHOLEDOCHOLITHIASIS, FALL, DEHYDRATION Physical Exam Vital Signs: Temp Pulse Resp BP Pulse Ox 98.0 F 83 20 126/69 H 99 08/04/20 12:00 08/04/20 12:00 08/04/20 12:00 08/04/20 12:00 08/04/20 12:00 Intake & Output 08/03/20 08/04/20 08/05/20 06:59 06:59 06:59 Intake Total 9496 227 2670 Output Total 1940 635 90 Balance -490 -435 918 Weight 65.7 kg 68.2 kg General appearance: PRESENT: no acute distress, well-developed, well-nourished Head exam: PRESENT: atraumatic, normocephalic Eye exam: PRESENT: conjunctiva pink Mouth exam: PRESENT: moist Respiratory exam: PRESENT: clear to auscultation deven. ABSENT: rales, rhonchi, wheezes Cardiovascular exam: PRESENT: RRR. ABSENT: diastolic murmur, rubs, systolic murmur GI/Abdominal exam: PRESENT: normal bowel sounds, soft, tenderness - Mild around surgical wounds, healing. ABSENT: distended, guarding, mass, organolmegaly, rebound Rectal exam: PRESENT: deferred Neurological exam: PRESENT: alert, awake, oriented to person, oriented to place, oriented to time, oriented to situation Psychiatric exam: PRESENT: appropriate affect, normal mood Skin exam: PRESENT: dry, intact, warm Results Laboratory Results: 08/03/20 06:53 08/04/20 06:20 08/04/20 06:20 Sodium 135.7 L Potassium 4.2 Chloride 101 Carbon Dioxide 12 L Anion Gap 23 H BUN 76 H D Creatinine 5.44 H Est GFR ( Amer) 13 L Glucose 93 Calcium 7.3 L Total Bilirubin 1.0 AST 39 Alkaline Phosphatase 219 H Total Protein 4.1 L Albumin 2.1 L 07/28/20 18:30 Troponin I 0.023 Impressions: Abdomen/Pelvis CT 07/28/20 19:15 IMPRESSION: Large calculus located within the gallbladder neck or cystic duct with associated mild intrahepatic biliary duct dilatation, raising the possibility of Mirizzi syndrome. Correlate for obstructive laboratories and suggest confirmation with MRCP. At that time, the additional calcification located about the liver hilum can be reassessed as it is indeterminate. Findings compatible with chronic calcific pancreatitis. However, the pancreatic appears relatively normal in bulk, similar to the previous exam dated 07/29/2015. Small amount of subhepatic free fluid. Small hiatal hernia with circumferential distal esophageal wall thickening. Correlate for esophagitis. TECHNICAL DOCUMENTATION: Quality ID # [id number]: Final reports with documentation of one or more dose reduction techniques (e.g., Automated exposure control, adjustment of the mA and/or kV according to patient size, use of iterative reconstruction technique) copyright 2011 [employer]- All Rights Reserved Abdomen Ultrasound 07/28/20 20:00 IMPRESSION: 1. Gallstones, gallbladder wall thickening, intrahepatic biliary dilatation and nonspecific possible inflammatory material surrounding the gallbladder. These findings are suspicious for acute cholecystitis. Gray's sign was negative but this does not exclude acute cholecystitis. 2. Common bile duct is only mildly dilated. . Question common bile duct stones. 3. Fatty liver. Low position of an atrophic right kidney in the pelvis. Abdomen MRI 07/29/20 04:06 IMPRESSION: 1.1 cm calcific density appears to localize to the common bile duct. The gallbladder is largely decompressed and mild intrahepatic biliary dilatation persists. Associated right upper quadrant inflammatory changes. Other chronic and incidental findings as detailed above. Catheter Placement 07/30/20 00:00 IMPRESSION: IMAGE(S) OBTAINED DURING PROCEDURE. Cholangiogram 08/01/20 00:00 IMPRESSION: IMAGE(S) OBTAINED DURING PROCEDURE. Fluoroscopy 08/01/20 00:00 IMPRESSION: IMAGE(S) OBTAINED DURING PROCEDURE. Chest X-Ray 08/03/20 05:00 IMPRESSION: Small left pleural effusion. Assessment and Plan - Diagnosis (1) Chronic cholecystitis due to cholelithiasis with choledocholithiasis Is this a current diagnosis for this admission?: Yes Plan: ERCP attempted by Dr. dahl found to have gallstone eroding through duct, procedure aborted General surgery consulted and patient underwent exploratory laparotomy, s/p hepatic jejunostomy, repair of duct and stone removal Pain management Trend CMP GI following (2) Acute renal failure superimposed on stage 5 chronic kidney disease, not on chronic dialysis Qualifiers: Acute renal failure type: unspecified Qualified Code(s): N17.9 - Acute kidney failure, unspecified; N18.5 - Chronic kidney disease, stage 5 Is this a current diagnosis for this admission?: Yes Plan: Per Previous Physician: "Monitor urine output. Maintain SpO2 93+%. As the patient's urine output does seem to be slowly improving, cautious use of diuretics is advised. Furosemide 20 mg IV every 8 hours x3 doses." Slow, gradual improvement in creatinine Monitor I/O Nephrology consulted: Dialysis ongoing (3) Choledocholithiasis Is this a current diagnosis for this admission?: Yes (4) Chronic anemia Is this a current diagnosis for this admission?: Yes Plan: Trend CBC Likely due to surgery and chronic renal failure (5) Essential hypertension Is this a current diagnosis for this admission?: Yes Plan: Stable (6) Metabolic acidosis Is this a current diagnosis for this admission?: Yes Plan: Trend CMP (7) Nausea and vomiting Qualifiers: Vomiting type: unspecified Vomiting Intractability: unspecified Qualified Code(s): R11.2 - Nausea with vomiting, unspecified Is this a current diagnosis for this admission?: Yes (8) Type 2 diabetes mellitus Qualifiers: Diabetes mellitus prison insulin use: without emt intermediate use Diabetes mellitus complication status: with kidney complications Diabetes mellitus complication detail: with chronic kidney disease Chronic kidney disease stage: stage 5, not on chronic dialysis Qualified Code(s): E11.22 - Type 2 diabetes mellitus with diabetic chronic kidney disease; N18.5 - Chronic kidney disease, stage 5 Is this a current diagnosis for this admission?: Yes Plan: Low-dose correctional Accu-Cheks (9) Abnormal findings on imaging of biliary tract Is this a current diagnosis for this admission?: Yes (10) GAURAV (acute kidney injury) Is this a current diagnosis for this admission?: Yes - Plan Summary Summary: TINA YUAN is a 70 year old male with HTN, HLD, DM2, CKD who presented on 07/28/2020 with fatigue, malaise, anorexia, nausea/vomiting/diarrhea x2 days and near-syncope resulting in fall on the day of admission. In the ED, he was found to be hypotensive, have leukocytosis, elevated bilirubin of 4.8 and elevation of transaminases and alkaline phosphatase. CT abdomen pelvis showed cholelithiasis and questionable choledocholithiasis. MRCP revealed a 1 cm stone in the common bile duct causing intra-hepatic duct dilatation. He was initially scheduled to be transferred to [place] to undergo ERCP there and has been waiting in the emergency room for transfer; however, the transfer never occurred and Dr. Dahl has now agreed to perform the ERCP tonight here at [facility] instead. The hospitalist service was therefore contacted for admission. Patient will be started on IVF and antibiotics with cefazolin/metronidazole. He remains NPO for ERCP tonight. GI consulted. General surgery consulted for eventual lap pete. GAURAV on CKD due to dehydration and N/V, will consult nephrology. HTN uncontrolled, restart home medications. Repeat CMP/CBC in AM. 07/31/2020: Patient with failed ERCP 07/30/2020; operating report was reviewed in detail. 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 Pt scheduled for laproscopic cholecystectomy with choliogram tomorrow. Dr. Barragan, nephrology, was consulted. Pt was found to be uremic by Dr. Barragan, requesting urgen placement of temporary femal dialysis catheter for short term hemodialysis treatment. Hurst catheter was placed to monitor strick I&Os. Patient with ~300cc urine approximately 30 minutes after catheter placement, as noted on exam. Dialysis catheter was not placed today, pt unable to receive dialysis until Monday. He appears to be making urine. He is receiving IV fluids at this time. Will monitor closely. Repeat CMP/CBC in AM prior to procedure. - Time Time Spent with patient: 25-34 minutes Medications reviewed and adjusted accordingly: Yes Anticipated Discharge Disposition: Long Term Facility Anticipated Discharge Timeframe: within 72 hours - Inpatient Certification Based on my medical assessment, after consideration of the patient's comorbidities, presenting symptoms, or acuity I expect that the services needed warrant INPATIENT care.: Yes I certify that my determination is in accordance with my understanding of Medicare's requirements for reasonable and necessary INPATIENT services [42 CFR 412.3e].: Yes Medical Necessity: Significant Comorbidiites Make Outpatient Treatment Too Risky, Need Close Monitoring Due to Risk of Patient Decompensation, Need For IV Fluids, Risk of Complication if Not Cared For in Hospital, Risk of Diagnosis Which Will Require Inpatient Eval/Care/Monitoring
[2020-08-04] MEDS: DOCUSATE SODIUM 100 MG CAPSULE PO SCH (18:37)
[2020-08-04] MEDS: CEFTRIAXONE 1 GM/D5W RTU 1 GM/50 ML RTUPB IV SCH (18:38)
[2020-08-05] MEDS: INSULIN REG, HUMAN 100 UNIT/ML 3 ML VIAL (PYX) SUBCUT SCH ×2 (00:32→06:32)
[2020-08-05] MEDS: METOPROLOL TARTRATE PF/INJ 5 MG/5 ML SDV IV SCH ×4 (00:53→17:53)
[2020-08-05] MEDS ORDERED: DISPOSABLE IV PRN (05:00)
[2020-08-05] MEDS ORDERED: EPOETIN ALFA-EPBX 5,000 UNITS (ESRD) in SYRINGE IV PRN ×3 (05:00)
[2020-08-05] MEDS ORDERED: HEPARIN SOD (PORCINE) 1,000 UNIT/ML 10 ML VIAL IV PRN (05:00)
[2020-08-05] MEDS ORDERED: NORMAL SALINE 1000 ML 1,000 ML IV PRN (05:00)
[2020-08-05] MEDS ORDERED: EPOETIN ALFA EPBX IV PRN (05:00)
[2020-08-05] MEDS: HEPARIN SOD (PORCINE) 5,000 UNIT/ML 1 ML VIAL SUBCUT SCH ×3 (06:18→21:38)
[2020-08-05] MEDS: METRONIDAZOLE 500 MG/NS RTU 500 MG/100 ML RTUPB IV SCH ×3 (06:19→22:36)
[2020-08-05] MEDS: METOCLOPRAMIDE HCL INJ/PF 10 MG/2 ML SDV IV SCH ×4 (06:21→20:47)
--- NOTE | 2020-08-05 07:23 | RADIOLOGY REPORT (SQ) ---
CLINICAL HISTORY: possible PE COMPARISON: 08/03/2020. TECHNIQUE: XR CHEST 1 VIEW 08/05/2020 12:00 AM CDT FINDINGS: The heart is normal in size. There is bibasilar airspace disease. Right shoulder arthroplasty is present. There are small pleural effusions. There is no pneumothorax. There are no acute osseous findings. IMPRESSION: Worsening aeration of the lung bases.
[2020-08-05] MEDS: MORPHINE SULFATE 10 MG/ML INJ IV PRN ×3 (08:16→19:04)
[2020-08-05 08:36] LABS: HEMATOCRIT 26.9 % (37.9-51.0); HEMOGLOBIN 9.1 g/dL (13.5-17.0); MEAN CORPUSCULAR HEMOGLOBIN 30.3 pg (27.0-33.4); MEAN CORPUSCULAR HGB CONC 33.9 g/dL (32.0-36.0); MEAN CORPUSCULAR VOLUME 89 fl (80-97); PLATELET COUNT 244 10^3/uL (150-450); RED BLOOD COUNT 3.01 10^6/uL (4.35-5.55); RED CELL DISTRIBUTION WIDTH 16.2 % (11.5-14.0); WHITE BLOOD COUNT 12.1 10^3/uL (4.0-10.5)
[2020-08-05 08:52] LABS: PHOSPHORUS 10.5 mg/dL (2.5-4.5)
[2020-08-05 09:06] LABS: ABSOLUTE LYMPHOCYTES# (MANUAL) 1.6 10^3/uL (0.5-4.7); ABSOLUTE MONOCYTES # (MANUAL) 0.7 10^3/uL (0.1-1.4); ANISOCYTOSIS 1+; BASOPHILS % (MANUAL) 0 % (0-2); EOSINOPHILS % (MANUAL) 1 % (0-6); LYMPHOCYTES % (MANUAL) 13 % (13-45); MONOCYTES % (MANUAL) 6 % (3-13); NUCLEATED RED BLOOD CELLS 1 /100 WBC (0); PLATELET COMMENT ADEQUATE; SEGMENTED NEUTROPHILS % (MAN) 80 % (42-78); TOTAL CELLS COUNTED 100
[2020-08-05 09:07] LABS: HYPOCHROMASIA SLIGHT; POLYCHROMASIA SLIGHT
[2020-08-05 09:15] LABS: ALBUMIN 2.3 g/dL (3.5-5.0); ASPARTATE AMINO TRANSFERASE 34 U/L (17-59); CALCIUM 7.7 mg/dL (8.4-10.2); POTASSIUM 4.9 mmol/L (3.6-5.0); TOTAL PROTEIN 4.6 g/dL (6.3-8.2)
[2020-08-05 09:23] LABS: ALKALINE PHOSPHATASE 278 U/L (38-126); BLOOD UREA NITROGEN 87 mg/dL (7-20); CHLORIDE 105 mmol/L (98-107); GLUCOSE 126 mg/dL (75-110)
--- NOTE | 2020-08-05 09:30 | PDOC PROGRESS REPORT ---
Subjective Progress Note for:: 08/05/20 Subjective:: sl more swollen today Reason For Visit: CHOLEDOCHOLITHIASIS, FALL, DEHYDRATION Physical Exam Vital Signs: Temp Pulse Resp BP Pulse Ox 97.6 F 85 18 128/57 H 97 08/05/20 08:00 08/05/20 08:00 08/05/20 08:00 08/05/20 08:00 08/05/20 08:00 Intake & Output 08/04/20 08/05/20 08/06/20 06:59 06:59 06:59 Intake Total 250 1283 Output Total 635 1030 45 Balance -385 253 -45 Weight 68.2 kg 69.1 kg General appearance: PRESENT: no acute distress Head exam: PRESENT: normocephalic Eye exam: PRESENT: EOMI Ear exam: PRESENT: normal external ear exam Mouth exam: PRESENT: moist Teeth exam: PRESENT: poor dentation Neck exam: PRESENT: full ROM Respiratory exam: PRESENT: decreased breath sounds Cardiovascular exam: PRESENT: RRR Pulses: PRESENT: normal femoral pulses, normal dorsalis pedis pul Vascular exam: PRESENT: normal capillary refill Breast: PRESENT: Normal GI/Abdominal exam: PRESENT: soft, other - femi serosanganous Rectal exam: PRESENT: deferred Extremities exam: PRESENT: +2 edema Musculoskeletal exam: PRESENT: full ROM Neurological exam: PRESENT: alert, awake, oriented to person, oriented to place Psychiatric exam: PRESENT: appropriate affect Skin exam: PRESENT: warm Results Laboratory Results: 08/05/20 08:16 08/05/20 08/05/20 08:16 08:16 WBC 12.1 H RBC 3.01 L Hgb 9.1 L Hct 26.9 L MCV 89 MCH 30.3 MCHC 33.9 RDW 16.2 H Plt Count 244 Seg Neutrophils % Not Reportable Phosphorus 10.5 H 07/28/20 18:30 Troponin I 0.023 Impressions: Abdomen/Pelvis CT 07/28/20 19:15 IMPRESSION: Large calculus located within the gallbladder neck or cystic duct with associated mild intrahepatic biliary duct dilatation, raising the possibility of Mirizzi syndrome. Correlate for obstructive laboratories and suggest confirmation with MRCP. At that time, the additional calcification located about the liver hilum can be reassessed as it is indeterminate. Findings compatible with chronic calcific pancreatitis. However, the pancreatic appears relatively normal in bulk, similar to the previous exam dated 07/29/2015. Small amount of subhepatic free fluid. Small hiatal hernia with circumferential distal esophageal wall thickening. Correlate for esophagitis. TECHNICAL DOCUMENTATION: Quality ID # [id number]: Final reports with documentation of one or more dose reduction techniques (e.g., Automated exposure control, adjustment of the mA and/or kV according to patient size, use of iterative reconstruction technique) copyright 2011 [employer]- All Rights Reserved Abdomen Ultrasound 07/28/20 20:00 IMPRESSION: 1. Gallstones, gallbladder wall thickening, intrahepatic biliary dilatation and nonspecific possible inflammatory material surrounding the gallbladder. These findings are suspicious for acute cholecystitis. Gray's sign was negative but this does not exclude acute cholecystitis. 2. Common bile duct is only mildly dilated. . Question common bile duct stones. 3. Fatty liver. Low position of an atrophic right kidney in the pelvis. Abdomen MRI 07/29/20 04:06 IMPRESSION: 1.1 cm calcific density appears to localize to the common bile duct. The gallbladder is largely decompressed and mild intrahepatic biliary dilatation persists. Associated right upper quadrant inflammatory changes. Other chronic and incidental findings as detailed above. Catheter Placement 07/30/20 00:00 IMPRESSION: IMAGE(S) OBTAINED DURING PROCEDURE. Cholangiogram 08/01/20 00:00 IMPRESSION: IMAGE(S) OBTAINED DURING PROCEDURE. Fluoroscopy 08/01/20 00:00 IMPRESSION: IMAGE(S) OBTAINED DURING PROCEDURE. Chest X-Ray 08/05/20 00:00 IMPRESSION: Worsening aeration of the lung bases. Assessment & Plan - Time Anticipated Discharge Disposition: Home, Self Care Anticipated Discharge Timeframe: unk - Plan Summary Plan Summary: sl more swollen today 2+ edema of upper exts pt due for dialaysis today wbc sl up to 12 h/h stable femi less bilous plan dialyis today awiting lft
[2020-08-05 09:53] LABS: ANION GAP 26 (5-19); CARBON DIOXIDE 8 mmol/L (22-30)
[2020-08-05] MEDS: INSULIN LISPRO 100 UNIT/ML 3 ML VIAL SUBCUT SCH ×4 (10:08→22:34)
[2020-08-05] MEDS: PANTOPRAZOLE SODIUM 40 MG VIAL IV SCH (10:32)
[2020-08-05] MEDS ORDERED: MIDODRINE HCL 5 MG TABLET PO PRN ×2 (16:48→17:03)
--- NOTE | 2020-08-05 16:54 | PDOC PROGRESS REPORT ---
Subjective Progress Note for:: 08/05/20 Subjective:: I am seeing the patient during dialysis this afternoon. He appears to be tired although not complaining too much except with abdominal pain. He said he is on clear liquids. He denies any nausea nor vomiting. So far he is tolerating dialysis. Reason For Visit: CHOLEDOCHOLITHIASIS, FALL, DEHYDRATION Physical Exam Vital Signs: Temp Pulse Resp BP Pulse Ox 97.6 F 85 18 128/57 H 97 08/05/20 08:00 08/05/20 08:00 08/05/20 08:00 08/05/20 08:00 08/05/20 08:00 Intake & Output 08/04/20 08/05/20 08/06/20 06:59 06:59 06:59 Intake Total 250 1283 100 Output Total 635 1030 45 Balance -385 253 55 Weight 68.2 kg 69.1 kg Vitals on dialysis: Blood pressure 109/59, heart rate of 92, blood flow rate of 250 mL/min and dialysate flow rate of 600 mL/min. Exam: General appearance: PRESENT: no acute distress, cooperative, well-developed, well-nourished Head exam: PRESENT: atraumatic, normocephalic Eye exam: PRESENT: conjunctiva pale, PERRLA. ABSENT: scleral icterus Neck exam: ABSENT: JVD Respiratory exam: PRESENT: Normal breath sounds. ABSENT: crackles, rales, rhonchi, unlabored, wheezes Cardiovascular exam: PRESENT: Regular rate rhythm -+S1, +S2. ABSENT: diastolic murmur, systolic murmur GI/Abdominal exam: PRESENT: Quiet abdomen, I can hardly hear any bowel sounds at this time, soft. ABSENT: guarding, mass, tenderness Extremities exam: +1 upper extremity edema without lower extremity edema Neurological exam: PRESENT: alert, awake, oriented to person, place and time. Skin exam: PRESENT: dry, warm, pallor Cardiovascular exam: PRESENT: +S1, +S2 GI/Abdominal exam: PRESENT: normal bowel sounds, soft, tenderness - Mildly tender in the right upper quadrant.. ABSENT: organomegaly Results Laboratory Results: 08/05/20 08:16 08/05/20 08:16 08/05/20 08/05/20 08/05/20 08:16 08:16 08:16 WBC 12.1 H RBC 3.01 L Hgb 9.1 L Hct 26.9 L MCV 89 MCH 30.3 MCHC 33.9 RDW 16.2 H Plt Count 244 Seg Neutrophils % Not Reportable Sodium 139.0 Potassium 4.9 Chloride 105 Carbon Dioxide 8 L* Anion Gap 26 H BUN 87 H Creatinine 5.72 H Est GFR ( Amer) 12 L Glucose 126 H Calcium 7.7 L Phosphorus 10.5 H Magnesium 2.1 Total Bilirubin 1.0 AST 34 Alkaline Phosphatase 278 H Total Protein 4.6 L Albumin 2.3 L 07/28/20 18:30 Troponin I 0.023 Impressions: Abdomen/Pelvis CT 07/28/20 19:15 IMPRESSION: Large calculus located within the gallbladder neck or cystic duct with associated mild intrahepatic biliary duct dilatation, raising the possibility of Mirizzi syndrome. Correlate for obstructive laboratories and suggest confirmation with MRCP. At that time, the additional calcification located about the liver hilum can be reassessed as it is indeterminate. Findings compatible with chronic calcific pancreatitis. However, the pancreatic appears relatively normal in bulk, similar to the previous exam dated 07/29/2015. Small amount of subhepatic free fluid. Small hiatal hernia with circumferential distal esophageal wall thickening. Correlate for esophagitis. TECHNICAL DOCUMENTATION: Quality ID # [id number]: Final reports with documentation of one or more dose reduction techniques (e.g., Automated exposure control, adjustment of the mA and/or kV according to patient size, use of iterative reconstruction technique) copyright 2011 [employer]- All Rights Reserved Abdomen Ultrasound 07/28/20 20:00 IMPRESSION: 1. Gallstones, gallbladder wall thickening, intrahepatic biliary dilatation and nonspecific possible inflammatory material surrounding the gallbladder. These findings are suspicious for acute cholecystitis. Gray's sign was negative but this does not exclude acute cholecystitis. 2. Common bile duct is only mildly dilated. . Question common bile duct stones. 3. Fatty liver. Low position of an atrophic right kidney in the pelvis. Abdomen MRI 07/29/20 04:06 IMPRESSION: 1.1 cm calcific density appears to localize to the common bile duct. The gallbladder is largely decompressed and mild intrahepatic biliary dilatation persists. Associated right upper quadrant inflammatory changes. Other chronic and incidental findings as detailed above. Catheter Placement 07/30/20 00:00 IMPRESSION: IMAGE(S) OBTAINED DURING PROCEDURE. Cholangiogram 08/01/20 00:00 IMPRESSION: IMAGE(S) OBTAINED DURING PROCEDURE. Fluoroscopy 08/01/20 00:00 IMPRESSION: IMAGE(S) OBTAINED DURING PROCEDURE. Chest X-Ray 08/05/20 00:00 IMPRESSION: Worsening aeration of the lung bases. Assessment & Plan - Diagnosis (1) CKD (chronic kidney disease), stage V Is this a current diagnosis for this admission?: Yes Plan: Secondary to diabetic nephropathy with known proteinuria. I believe the patient has now reached ESRD and would require chronic long-term dialysis treatment. When I last saw him a year ago he was on the verge of going to ESRD with all complications associated with it. Patient understood that he is probably going to need long-term chronic dialysis treatment. Patient is passing some urine, made about 550 mL of urine output for the past 24 hours. We will do dialysis today for 2 hours, using the patient's trialysis catheter, with 2 potassium bath, blood flow rate of 250 mL per minute, dialysate flow rate of 600 mL per minute, ultrafiltration 0-0.5 ml as tolerated, no heparin and Retacrit with 5,000 units during dialysis intravenously. Patient is currently being monitored carefully. For planning, I am going to ask case management to arrange outpatient chronic hemodialysis treatment at [facility] upon discharge. Patient will also need permacath placement which I talked to Dr. Schaffer about. He states that he will place it once he is recovered nearing discharge. (2) Acute renal failure superimposed on stage 5 chronic kidney disease, not on chronic dialysis Qualifiers: Acute renal failure type: unspecified Qualified Code(s): N17.9 - Acute kidney failure, unspecified; N18.5 - Chronic kidney disease, stage 5 Is this a current diagnosis for this admission?: Yes Plan: Patient's kidney function has gotten worse this admission due to his acute illness which puts him more to ESRD from CKD 5. Plan as above. (3) Metabolic acidosis Is this a current diagnosis for this admission?: Yes Plan: Severe anion gap metabolic acidosis secondary to uremia/ESRD/abdominal sepsis. Currently on oral sodium bicarbonate. Renal replacement therapy with hemodialysis will help with this as well slowly. (4) Sepsis following intra-abdominal surgery Is this a current diagnosis for this admission?: Yes Plan: Blood cultures were negative. He was given a dose of Zosyn initially. Currently on ceftriaxone, metronidazole and vancomycin. (5) Chronic cholecystitis due to cholelithiasis with choledocholithiasis Is this a current diagnosis for this admission?: Yes Plan: Status post cholecystectomy initially laparoscopic converted to open procedure on 08/01/2020. Status post ERCP on 07/30/2020. Surgery following. (6) Type 2 diabetes mellitus Qualifiers: Diabetes mellitus care home insulin use: without care home use Diabetes mellitus complication status: with kidney complications Diabetes mellitus complication detail: with chronic kidney disease Chronic kidney disease stage: stage 5, not on chronic dialysis Qualified Code(s): E11.22 - Type 2 diabetes mellitus with diabetic chronic kidney disease; N18.5 - Chronic kidney disease, stage 5 Is this a current diagnosis for this admission?: Yes Plan: Currently controlled. (7) Anemia in chronic kidney disease (CKD) Qualifiers: Chronic kidney disease stage: stage 4 (severe) Qualified Code(s): N18.4 - Chronic kidney disease, stage 4 (severe); D63.1 - Anemia in chronic kidney disease Is this a current diagnosis for this admission?: Yes Plan: Patient has chronic anemia of chronic kidney disease and has refused to take NOELLE therapy for the past 1 to 2 years. Currently his iron is also low at 41.6, TSAT19 and ferritin of 543. He was given blood transfusions last week. I will give Retacrit during dialysis treatment. (8) Chronic kidney disease-mineral and bone disorder Is this a current diagnosis for this admission?: Yes Plan: Phosphorus is 10.5 with PTH of 318.2 and normal corrected calcium. Once the patient is taking medications orally he would need phosphorus binder and vitamin D analogs. We will hold for now. (9) Essential hypertension Is this a current diagnosis for this admission?: Yes Plan: Relatively low today. (10) Acute hypoxemic respiratory failure Is this a current diagnosis for this admission?: Yes Plan: Resolved. - Time Time with patient: 15-25 minutes
[2020-08-05] MEDS ORDERED: ALBUMIN HUMAN 12.5 GM/50 ML RTUINJ IV SCH (17:30)
[2020-08-05] MEDS: SODIUM BICARBONATE 650 MG TABLET PO SCH (17:53)
[2020-08-05] MEDS: CEFTRIAXONE 1 GM/D5W RTU 1 GM/50 ML RTUPB IV SCH (17:55)
[2020-08-05] MEDS ORDERED: VANCOMYCIN HCL 750 MG in DEXTROSE 5%-WATER 250 ML IV SCH (18:00)
--- NOTE | 2020-08-05 18:26 | PDOC PROGRESS REPORT ---
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 Initial evaluation in the ED showed the patient was hypertensive with leukocytosis and elevated bilirubin and transaminase including alkaline phosphatase. CT of the abdomen showed cholelithiasis with questionable choled ocholithiasis. On 07/30/2020 he underwent ERCP by Dr. 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 On 08/01/2020 he underwent laparoscopic cholecystectomy which was converted to open cholecystectomy with Kapil-en-Y hepatic jejunostomy by Dr. Schaffer. Postoperatively he was admitted in the ICU for closer monitoring. He had acute hypoxemic respiratory failure and hypotension postoperatively. He was successfully extubated though. He required 4 units of packed RBC, 1 unit FFP and 3 L of lactated Ringer's and 500 mL of normal saline. Apparently there was significant bile staining of the retroperitoneum behind the pancreas and the duodenum. He was started on metronidazole, ceftriaxone, vancomycin and fluconazole. Over the weekend the patient was monitored while in the ICU and surprisingly did well." 08/04/2020 Patient popped out of ICU overnight. Creatinine lower today. Blood cultures negative. Patient states he has not had a bowel movement yet and would like a bowel regimen started. He does have some abdominal pain from his recent surgery but other than that he has no new complaints. General surgery is following. 08/05/2020 Patient repeatedly states he feels fine and is doing well, however his bicarb is acutely dropped to 8 and his anion gap is 26. I am concerned that he may be developing an intra-abdominal infection from his recent surgery and I have ordered a CT of his chest/abdomen/pelvis to also help rule out a developing pneumonia. I discussed case with Dr. Schaffer as well as Dr. Hill. Patient did not get much dialysis as his blood pressure was quite low. Nephrology recommended giving albumin and have also started as needed midodrine to be given 1 hour prior to dialysis sessions. Reason For Visit: CHOLEDOCHOLITHIASIS, NEAR SYNCOPE, NAUSEA Physical Exam Vital Signs: Temp Pulse Resp BP Pulse Ox 98.4 F 87 16 127/61 H 98 08/05/20 12:00 08/05/20 12:00 08/05/20 12:00 08/05/20 12:00 08/05/20 12:00 Intake & Output 08/04/20 08/05/20 08/06/20 06:59 06:59 06:59 Intake Total 250 1283 100 Output Total 635 1030 245 Balance -385 253 -145 Weight 68.2 kg 69.1 kg Exam: General appearance: PRESENT: no acute distress, well-developed, well-nourished Head exam: PRESENT: atraumatic, normocephalic Eye exam: PRESENT: conjunctiva pink Mouth exam: PRESENT: moist Respiratory exam: PRESENT: clear to auscultation deven. ABSENT: rales, rhonchi, wheezes Cardiovascular exam: PRESENT: RRR. ABSENT: diastolic murmur, rubs, systolic murmur GI/Abdominal exam: PRESENT: normal bowel sounds, soft, tenderness - Mild around surgical wounds, healing. Right abdomen drain with dark red-tinged fluid ABSENT: distended, guarding, mass, organolmegaly, rebound Rectal exam: PRESENT: deferred Neurological exam: PRESENT: alert, awake, oriented to person, oriented to place, oriented to time, oriented to situation Psychiatric exam: PRESENT: appropriate affect, normal mood Skin exam: PRESENT: dry, intact, warm Results Laboratory Results: 08/05/20 08:16 08/05/20 08:16 08/05/20 08/05/20 08/05/20 08:16 08:16 08:16 WBC 12.1 H RBC 3.01 L Hgb 9.1 L Hct 26.9 L MCV 89 MCH 30.3 MCHC 33.9 RDW 16.2 H Plt Count 244 Seg Neutrophils % Not Reportable Sodium 139.0 Potassium 4.9 Chloride 105 Carbon Dioxide 8 L* Anion Gap 26 H BUN 87 H Creatinine 5.72 H Est GFR ( Amer) 12 L Glucose 126 H Calcium 7.7 L Phosphorus 10.5 H Magnesium 2.1 Total Bilirubin 1.0 AST 34 Alkaline Phosphatase 278 H Total Protein 4.6 L Albumin 2.3 L 07/28/20 18:30 Troponin I 0.023 Impressions: Abdomen/Pelvis CT 07/28/20 19:15 IMPRESSION: Large calculus located within the gallbladder neck or cystic duct with associated mild intrahepatic biliary duct dilatation, raising the possibility of Mirizzi syndrome. Correlate for obstructive laboratories and suggest confirmation with MRCP. At that time, the additional calcification located about the liver hilum can be reassessed as it is indeterminate. Findings compatible with chronic calcific pancreatitis. However, the pancreatic appears relatively normal in bulk, similar to the previous exam dated 07/29/2015. Small amount of subhepatic free fluid. Small hiatal hernia with circumferential distal esophageal wall thickening. Correlate for esophagitis. TECHNICAL DOCUMENTATION: Quality ID # 436: Final reports with documentation of one or more dose reduction techniques (e.g., Automated exposure control, adjustment of the mA and/or kV according to patient size, use of iterative reconstruction technique) copyright 2011 [employer]- All Rights Reserved Abdomen Ultrasound 07/28/20 20:00 IMPRESSION: 1. Gallstones, gallbladder wall thickening, intrahepatic biliary dilatation and nonspecific possible inflammatory material surrounding the gallbladder. These findings are suspicious for acute cholecystitis. Gray's sign was negative but this does not exclude acute cholecystitis. 2. Common bile duct is only mildly dilated. . Question common bile duct stones. 3. Fatty liver. Low position of an atrophic right kidney in the pelvis. Abdomen MRI 07/29/20 04:06 IMPRESSION: 1.1 cm calcific density appears to localize to the common bile duct. The gallbladder is largely decompressed and mild intrahepatic biliary dilatation persists. Associated right upper quadrant inflammatory changes. Other chronic and incidental findings as detailed above. Catheter Placement 07/30/20 00:00 IMPRESSION: IMAGE(S) OBTAINED DURING PROCEDURE. Cholangiogram 08/01/20 00:00 IMPRESSION: IMAGE(S) OBTAINED DURING PROCEDURE. Fluoroscopy 08/01/20 00:00 IMPRESSION: IMAGE(S) OBTAINED DURING PROCEDURE. Chest X-Ray 08/05/20 00:00 IMPRESSION: Worsening aeration of the lung bases. Assessment and Plan - Diagnosis (1) Chronic cholecystitis due to cholelithiasis with choledocholithiasis Is this a current diagnosis for this admission?: Yes Plan: ERCP attempted by Dr. dahl found to have gallstone eroding through duct, procedure aborted General surgery consulted and patient underwent exploratory laparotomy, s/p hepatic jejunostomy, repair of duct and stone removal Pain management Trend CMP GI following CT abdomen/pelvis to reevaluate abdomen 08/05 Antibiotics continue with ceftriaxone and Flagyl, stop vancomycin as there is no evidence of MRSA infection (2) Acute renal failure superimposed on stage 5 chronic kidney disease, not on chronic dialysis Qualifiers: Acute renal failure type: unspecified Qualified Code(s): N17.9 - Acute kidney failure, unspecified; N18.5 - Chronic kidney disease, stage 5 Is this a current diagnosis for this admission?: Yes Plan: Per Previous Physician: "Monitor urine output. Maintain SpO2 93+%. As the patient's urine output does seem to be slowly improving, cautious use of diuretics is advised. Furosemide 20 mg IV every 8 hours x3 doses." Slow, gradual improvement in creatinine Monitor I/O Nephrology consulted: Dialysis ongoing Trend BMP (3) Choledocholithiasis Is this a current diagnosis for this admission?: Yes (4) Chronic anemia Is this a current diagnosis for this admission?: Yes (5) Essential hypertension Is this a current diagnosis for this admission?: Yes Plan: Blood pressure dropping out during dialysis but stable otherwise (6) Metabolic acidosis Is this a current diagnosis for this admission?: Yes Plan: Trend CMP Worsening, started bicarbonate p.o. Anion gap up to 26 on 08/05, possible developing abdominal infection CT abdomen/pelvis/chest (7) Nausea and vomiting Qualifiers: Vomiting type: unspecified Vomiting Intractability: unspecified Qualified Code(s): R11.2 - Nausea with vomiting, unspecified Is this a current diagnosis for this admission?: Yes (8) Type 2 diabetes mellitus Qualifiers: Diabetes mellitus long term care administrator insulin use: without chcf use Diabetes mellitus complication status: with kidney complications Diabetes mellitus complication detail: with chronic kidney disease Chronic kidney disease stage: stage 5, not on chronic dialysis Qualified Code(s): E11.22 - Type 2 diabetes mellitus with diabetic chronic kidney disease; N18.5 - Chronic kidney disease, stage 5 Is this a current diagnosis for this admission?: Yes (9) Abnormal findings on imaging of biliary tract Is this a current diagnosis for this admission?: Yes (10) GAURAV (acute kidney injury) Is this a current diagnosis for this admission?: Yes - Plan Summary Summary: TINA YUAN is a 70 year old male with HTN, HLD, DM2, CKD who presented on 07/28/2020 with fatigue, malaise, anorexia, nausea/vomiting/diarrhea x2 days and near-syncope resulting in fall on the day of admission. In the ED, he was found to be hypotensive, have leukocytosis, elevated bilirubin of 4.8 and elevation of transaminases and alkaline phosphatase. CT abdomen pelvis showed cholelithiasis and questionable choledocholithiasis. MRCP revealed a 1 cm stone in the common bile duct causing intra-hepatic duct dilatation. He was initially scheduled to be transferred to [place] to undergo ERCP there and has been waiting in the emergency room for transfer; however, the transfer never occurred and Dr. Dahl has now agreed to perform the ERCP tonight here at [facility] instead. The hospitalist service was therefore contacted for admission. Patient will be started on IVF and antibiotics with cefazolin/metronidazole. He remains NPO for ERCP tonight. GI consulted. General surgery consulted for even tual lap pete. GAURAV on CKD due to dehydration and N/V, will consult nephrology. HTN uncontrolled, restart home medications. Repeat CMP/CBC in AM. 07/31/2020: Patient with failed ERCP 07/30/2020; operating report was reviewed in detail. 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 Pt scheduled for laproscopic cholecystectomy with choliogram tomorrow. Dr. Barragan, nephrology, was consulted. Pt was found to be uremic by Dr. Barragan, requesting urgen placement of temporary femal dialysis catheter for short term hemodialysis treatment. Hurst catheter was placed to monitor strick I&Os. Patient with ~300cc urine approximately 30 minutes after catheter placement, as noted on exam. Dialysis catheter was not placed today, pt unable to receive dialysis until Monday. He appears to be making urine. He is receiving IV fluids at this time. Will monitor closely. Repeat CMP/CBC in AM prior to procedure. - Time Time Spent with patient: 35 or more minutes Medications reviewed and adjusted accordingly: Yes Anticipated Discharge Disposition: Senior Living Facility Anticipated Discharge Timeframe: within 72 hours - Inpatient Certification Based on my medical assessment, after consideration of the patient's comorbidities, presenting symptoms, or acuity I expect that the services needed warrant INPATIENT care.: Yes I certify that my determination is in accordance with my understanding of Medicare's requirements for reasonable and necessary INPATIENT services [42 CFR 412.3e].: Yes Medical Necessity: Significant Comorbidiites Make Outpatient Treatment Too Risky, Need Close Monitoring Due to Risk of Patient Decompensation, Need for IV Antibiotics, Risk of Complication if Not Cared For in Hospital, Risk of Diagnosis Which Will Require Inpatient Eval/Care/Monitoring
[2020-08-05] MEDS: ALBUMIN HUMAN 12.5 GM/50 ML RTUINJ IV SCH ×2 (20:36→21:37)
[2020-08-05] MEDS ORDERED: NORMAL SALINE 250 ML IV PRN ×2 (22:02)
[2020-08-06 01:25] LABS: PARTIAL THROMBOPLASTIN TIME 53.3 SEC (23.5-35.8)
[2020-08-06 01:35] LABS: ALBUMIN 2.7 g/dL (3.5-5.0); ALKALINE PHOSPHATASE 310 U/L (38-126); ASPARTATE AMINO TRANSFERASE 51 U/L (17-59); CALCIUM 7.8 mg/dL (8.4-10.2); CARBON DIOXIDE 14 mmol/L (22-30); CHLORIDE 101 mmol/L (98-107); GLUCOSE 126 mg/dL (75-110); POTASSIUM 4.2 mmol/L (3.6-5.0)
[2020-08-06 01:50] LABS: ANION GAP 23 (5-19); BLOOD UREA NITROGEN 58 mg/dL (7-20)
[2020-08-06 02:09] LABS: INTERNATIONAL RATION (INR) 8.76
[2020-08-06 02:12] LABS: PROTHROMBIN TIME 70.3 SEC (11.4-15.4)
[2020-08-06] MEDS: METOCLOPRAMIDE HCL INJ/PF 10 MG/2 ML SDV IV SCH ×4 (03:07→21:39)
[2020-08-06 03:31] LABS: ABSOLUTE EOSINOPHILS # (AUTO) 0.1 10^3/uL (0.0-0.6); ABSOLUTE LYMPHOCYTES (AUTO) 1.3 10^3/uL (0.5-4.7); ABSOLUTE MONOCYTES (AUTO) 0.8 10^3/uL (0.1-1.4); ABSOLUTE NEUT (AUTO) 8.6 10^3/uL (1.7-8.2); BASOPHILS % (AUTO) 0.2 % (0-2); EOSINOPHILS % (AUTO) 1.2 % (0-6); HEMATOCRIT 22.2 % (37.9-51.0); HEMOGLOBIN 7.6 g/dL (13.5-17.0); LYMPHOCYTES % (AUTO) 12.4 % (13-45); MEAN CORPUSCULAR HEMOGLOBIN 30.2 pg (27.0-33.4); MEAN CORPUSCULAR HGB CONC 34.2 g/dL (32.0-36.0); MEAN CORPUSCULAR VOLUME 88 fl (80-97); MONOCYTES % (AUTO) 7.1 % (3-13); PLATELET COUNT 219 10^3/uL (150-450); RED BLOOD COUNT 2.51 10^6/uL (4.35-5.55); RED CELL DISTRIBUTION WIDTH 15.3 % (11.5-14.0); SEGMENTED NEUTROPHILS % (AUTO) 79.1 % (42-78); TOTAL CELLS COUNTED % (AUTO) 100 %; WHITE BLOOD COUNT 10.9 10^3/uL (4.0-10.5)
[2020-08-06] MEDS: METOPROLOL TARTRATE PF/INJ 5 MG/5 ML SDV IV SCH ×4 (05:35→18:31)
[2020-08-06] MEDS: SODIUM BICARBONATE 650 MG TABLET PO SCH ×4 (05:36→18:31)
[2020-08-06] MEDS: HEPARIN SOD (PORCINE) 5,000 UNIT/ML 1 ML VIAL SUBCUT SCH ×3 (05:37→21:39)
[2020-08-06] MEDS: METRONIDAZOLE 500 MG/NS RTU 500 MG/100 ML RTUPB IV SCH ×2 (05:54→16:29)
[2020-08-06] MEDS ORDERED: NORMAL SALINE 250 ML IV PRN ×2 (08:07)
[2020-08-06] MEDS: INSULIN LISPRO 100 UNIT/ML 3 ML VIAL SUBCUT SCH ×4 (08:13→22:09)
--- NOTE | 2020-08-06 08:13 | Progress Note ---
Provider Note Provider Note: Noted coagulopathy and hematology consult. Discussed the case at length with Dr. Schaffer. CT scan I ordered yesterday was not done reportedly due to intolerance of oral contrast. This is not a good reason to delay CT. Patient should be given an NG tube and given contrast down that if he cannot tolerate oral contrast or this can be converted simply to a dry CT. Reportedly, overnight physician was notified of these complications. He must have the scan immediately and I discussed this with the nurse who will call radiology. Agree with vitamin K supplementation. Ordered 1 unit PRBC. Ordered fibrinogen and D- dimer to look for DIC. Suspect intra-abdominal bleed and/or infection. Transfer to stepdown unit. Low threshold for ICU transfer.
[2020-08-06] MEDS ORDERED: PHYTONADIONE INJ 10 MG/1 ML AMPULE IV ONE (08:15)
[2020-08-06] MEDS: PHYTONADIONE INJ 10 MG/1 ML AMPULE SUBCUT SCH (08:25)
--- NOTE | 2020-08-06 08:28 | PDOC CONSULTATION ---
Consultation Consult Date: 08/06/20 Attending physician:: VISHAL ROSENBAUM Provider Consulted: ANDREA RASCON Consult reason:: Concern of coagulopathy, multiple areas of bleeding/oozing History of Present Illness Admission Date/PCP: 07/30/20 13:37 JOSE HALL MD Patient complains of: Weakness, abdominal pain History of Present Illness: TINA YUAN is a 70 year old male who had not had much medical care prior to coming in, came in 1 week ago with choledocholithiasis, unfortunately ERCP could not remove bile stone that was eroding into the bile duct, ultimately patient was taken for emergent exploratory laparotomy, and surgery to relieve the stone. Preoperatively, his albumin was low in the 2 range, and postoperatively it is been even lower. In discussion with the patient, he lives alone, does not remember too much but had been feeling bad for a few weeks prior to admission. Sounds like he probably was malnourished before coming in. Over the last 48 hours he seems to have been increasing oozing, and he seems to ooze from o penings in the skin, he is oozing from the incision site, and also had episode of hematemesis, his nurse tells me that they changed his sheets 3-4 times overnight because of the blood, and change his dressing 3-4 times as well. However, other than hemoglobin dropped to 7, he has been hemodynamically stable, without tachycardia or hypotension or hypoxia. Of note he is a never drinker as well. Past Medical History Cardiac Medical History: Reports: Hyperlipidema, Hypertension Denies: Coronary Artery Disease, Myocardial Infarction Pulmonary Medical History: Denies: Asthma, Bronchitis, Chronic Obstructive Pulmonary Disease (COPD), Pneumonia Neurological Medical History: Denies: Seizures Endocrine Medical History: Reports: Diabetes Mellitus Type 2 Musculoskeltal Medical History: Reports: Arthritis Hematology: Denies: Anemia Past Surgical History Past Surgical History: Reports: Orthopedic Surgery - right shoulder Social History Information Source: Patient Lives with: Alone Smoking Status: Never Smoker Electronic Cigarette use?: No Frequency of Alcohol Use: None - Advance Directive Resuscitation Status: Full Code Family History Family History: Reviewed & Not Pertinent Parental Family History Reviewed: Yes Children Family History Reviewed: Yes Sibling(s) Family History Reviewed.: Yes Medication/Allergy Home Medications: Simvastatin [Zocor 20 mg Tablet] 40 mg PO QHS 09/08/12 Clonidine HCl [Catapres 0.1 mg Tablet] 0.2 mg PO BID 03/21/13 Benazepril HCl 40 mg PO DAILY 07/29/15 Amlodipine Besylate [Norvasc 10 mg Tablet] 10 mg PO DAILY 07/30/20 Atenolol [Tenormin 50 mg Tablet] 50 mg PO DAILY 07/30/20 Glipizide [Glucotrol] 5 mg PO BID 07/30/20 Sodium Bicarbonate [Sodium Bicarbonate 650 mg Tablet] 650 mg PO TID 07/30/20 Allergies/Adverse Reactions: No Known Allergies Allergy (Verified 01/24/19 09:32) Review of Systems Constitutional: ABSENT: chills, fever(s), headache(s), weight gain, weight loss Eyes: ABSENT: visual disturbances Ears: ABSENT: hearing changes Cardiovascular: ABSENT: chest pain, dyspnea on exertion, edema, orthropnea, palpitations Respiratory: ABSENT: cough, hemoptysis Gastrointestinal: ABSENT: abdominal pain, constipation, diarrhea, hematemesis, hematochezia, nausea, vomiting Genitourinary: ABSENT: dysuria, hematuria Musculoskeletal: ABSENT: joint swelling Integumentary: ABSENT: rash, wounds Neurological: ABSENT: abnormal gait, abnormal speech, confusion, dizziness, focal weakness, syncope Psychiatric: ABSENT: anxiety, depression, homidical ideation, suicidal ideation Endocrine: ABSENT: cold intolerance, heat intolerance, polydipsia, polyuria Hematologic/Lymphatic: ABSENT: easy bleeding, easy bruising Physical Exam Vital Signs: Temp Pulse Resp BP Pulse Ox 97.4 F 94 14 137/73 H 94 08/06/20 08:00 08/06/20 08:00 08/06/20 08:00 08/06/20 08:00 08/06/20 08:00 Intake & Output 08/05/20 08/06/20 08/07/20 06:59 06:59 06:59 Intake Total 1283 1466 Output Total 1030 1115 Balance 253 351 Weight 69.1 kg 58.1 kg General appearance: PRESENT: no acute distress, well-developed, well-nourished Head exam: PRESENT: atraumatic, normocephalic Eye exam: PRESENT: conjunctiva pink, EOMI, PERRLA. ABSENT: scleral icterus Ear exam: PRESENT: normal external ear exam Mouth exam: PRESENT: moist, tongue midline Neck exam: ABSENT: carotid bruit, JVD, lymphadenopathy, thyromegaly Respiratory exam: PRESENT: clear to auscultation deven. ABSENT: rales, rhonchi, wheezes Cardiovascular exam: PRESENT: RRR. ABSENT: diastolic murmur, rubs, systolic murmur Pulses: PRESENT: normal dorsalis pedis pul Vascular exam: PRESENT: normal capillary refill GI/Abdominal exam: PRESENT: normal bowel sounds, soft. ABSENT: distended, guarding, mass, organolmegaly, rebound, tenderness Rectal exam: PRESENT: deferred Extremities exam: PRESENT: full ROM. ABSENT: calf tenderness, clubbing, pedal edema Neurological exam: PRESENT: alert, awake, oriented to person, oriented to place, oriented to time, oriented to situation, CN II-XII grossly intact. ABSENT: motor sensory deficit Psychiatric exam: PRESENT: appropriate affect, normal mood. ABSENT: homicidal ideation, suicidal ideation Skin exam: PRESENT: dry, intact, warm. ABSENT: cyanosis, rash Results Laboratory Results: 08/06/20 03:05 08/06/20 01:04 08/05/20 08/05/20 08/05/20 08:16 08:16 08:16 WBC 12.1 H RBC 3.01 L Hgb 9.1 L Hct 26.9 L MCV 89 MCH 30.3 MCHC 33.9 RDW 16.2 H Plt Count 244 Seg Neutrophils % Not Reportable Sodium 139.0 Potassium 4.9 Chloride 105 Carbon Dioxide 8 L* Anion Gap 26 H BUN 87 H Creatinine 5.72 H Est GFR ( Amer) 12 L Glucose 126 H Calcium 7.7 L Phosphorus 10.5 H Magnesium 2.1 Total Bilirubin 1.0 AST 34 Alkaline Phosphatase 278 H Total Protein 4.6 L Albumin 2.3 L Blood Type 08/05/20 08/06/20 08/06/20 22:55 01:04 01:04 WBC Cancelled RBC Cancelled Hgb Cancelled Hct Cancelled MCV Cancelled MCH Cancelled MCHC Cancelled RDW Cancelled Plt Count Cancelled Seg Neutrophils % Cancelled Sodium 138.2 Potassium 4.2 Chloride 101 Carbon Dioxide 14 L Anion Gap 23 H BUN 58 H D Creatinine 4.78 H Est GFR ( Amer) 15 L Glucose 126 H Calcium 7.8 L Phosphorus Magnesium Total Bilirubin 1.0 AST 51 Alkaline Phosphatase 310 H Total Protein 5.0 L Albumin 2.7 L Blood Type A POSITIVE 08/06/20 03:05 WBC 10.9 H RBC 2.51 L Hgb 7.6 L Hct 22.2 L MCV 88 MCH 30.2 MCHC 34.2 RDW 15.3 H Plt Count 219 Seg Neutrophils % 79.1 H Sodium Potassium Chloride Carbon Dioxide Anion Gap BUN Creatinine Est GFR ( Amer) Glucose Calcium Phosphorus Magnesium Total Bilirubin AST Alkaline Phosphatase Total Protein Albumin Blood Type 07/28/20 18:30 Troponin I 0.023 Impressions: Abdomen/Pelvis CT 07/28/20 19:15 IMPRESSION: Large calculus located within the gallbladder neck or cystic duct with associated mild intrahepatic biliary duct dilatation, raising the possibility of Mirizzi syndrome. Correlate for obstructive laboratories and suggest confirmation with MRCP. At that time, the additional calcification located about the liver hilum can be reassessed as it is indeterminate. Findings compatible with chronic calcific pancreatitis. However, the pancreatic appears relatively normal in bulk, similar to the previous exam dated 07/29/2015. Small amount of subhepatic free fluid. Small hiatal hernia with circumferential distal esophageal wall thickening. Correlate for esophagitis. TECHNICAL DOCUMENTATION: Quality ID # 436: Final reports with documentation of one or more dose reduction techniques (e.g., Automated exposure control, adjustment of the mA and/or kV according to patient size, use of iterative reconstruction technique) copyright 2011 [employer]- All Rights Reserved Abdomen Ultrasound 07/28/20 20:00 IMPRESSION: 1. Gallstones, gallbladder wall thickening, intrahepatic biliary dilatation and nonspecific possible inflammatory material surrounding the gallbladder. These findings are suspicious for acute cholecystitis. Gray's sign was negative but this does not exclude acute cholecystitis. 2. Common bile duct is only mildly dilated. . Question common bile duct stones. 3. Fatty liver. Low position of an atrophic right kidney in the pelvis. Abdomen MRI 07/29/20 04:06 IMPRESSION: 1.1 cm calcific density appears to localize to the common bile duct. The gallbladder is largely decompressed and mild intrahepatic biliary dilatation persists. Associated right upper quadrant inflammatory changes. Other chronic and incidental findings as detailed above. Catheter Placement 07/30/20 00:00 IMPRESSION: IMAGE(S) OBTAINED DURING PROCEDURE. Cholangiogram 08/01/20 00:00 IMPRESSION: IMAGE(S) OBTAINED DURING PROCEDURE. Fluoroscopy 08/01/20 00:00 IMPRESSION: IMAGE(S) OBTAINED DURING PROCEDURE. Chest X-Ray 08/05/20 00:00 IMPRESSION: Worsening aeration of the lung bases. Assessment & Plan - Diagnosis (1) Coagulopathy Is this a current diagnosis for this admission?: Yes Plan: Coagulopathy secondary to most likely vitamin K deficiency. PT/PTT/INR all is elevated consistent with multifactor deficiency that would be seen in vitamin K deficiency. We will initiate vitamin K subcu 5 mg daily, if bleeding does not improve in the next 24 to 48 hours we may increase to 10 mg daily. Surgery is ordered 2 units of FFP which we agree with. We will follow along. (2) Anemia in chronic kidney disease (CKD) Qualifiers: Chronic kidney disease stage: stage 4 (severe) Qualified Code(s): N18.4 - Chronic kidney disease, stage 4 (severe); D63.1 - Anemia in chronic kidney disease Is this a current diagnosis for this admission?: Yes Plan: Anemia of chronic disease, transfuse as needed for patient that hemodynamically unstable or if hemoglobin gets under 7. - Time Time Spent: Greater than 70 Minutes - Inpatient Certification Based on my medical assessment, after consideration of the patient's comorbidities, presenting symptoms, or acuity I expect that the services needed warrant INPATIENT care.: Yes I certify that my determination is in accordance with my understanding of Medicare's requirements for reasonable and necessary INPATIENT services [42 CFR 412.3e].: Yes Medical Necessity: Risk of Complication if Not Cared For in Hospital
[2020-08-06] MEDS: PANTOPRAZOLE SODIUM 40 MG VIAL IV SCH (09:11)
[2020-08-06] MEDS: DOCUSATE SODIUM 100 MG CAPSULE PO SCH (09:11)
--- NOTE | 2020-08-06 09:27 | RADIOLOGY REPORT (SQ) ---
EXAM DESCRIPTION: CT CHEST WITHOUT IMAGES COMPLETED DATE/TIME: 08/06/2020 8:52 am REASON FOR STUDY: possible pneumonia COMPARISON: None. TECHNIQUE: CT scan performed of the chest without intravenous contrast. Images reviewed with lung, soft tissue and bone windows. Reconstructed coronal and sagittal MPR images reviewed. All images st ored on PACS. All CT scanners at this facility use dose modulation, iterative reconstruction, and/or weight based d osing when appropriate to reduce radiation dose to as low as reasonably achievable (ALARA). [facility]: Dose Right [facility]: CareDose [facility]: Dose Right [facility]: Teradose 4D [facility]: [employer] RADIATION DOSE: CT Rad equipment meets quality standard of care and radiation dose reduction techniq ues were employed. CTDIvol: 7.8 mGy. DLP: 526 mGy-cm. mGy. LIMITATIONS: No technical limitations. FINDINGS: LUNGS AND PLEURA: Large bilateral pleural effusions. Bilateral lower lobe airspace diseas e. HILAR AND MEDIASTINAL STRUCTURES: No identified masses or abnormal nodes. No obvious aneurysm. HEART AND VASCULAR STRUCTURES: No aneurysm. No pericardial effusion. UPPER ABDOMEN: See separate report of the CT of the abdomen. THYROID AND OTHER SOFT TISSUES: No masses. No adenopathy. BONES: No significant finding. HARDWARE: None in the chest. OTHER: No other significant findings. IMPRESSION: LARGE BILATERAL PLEURAL EFFUSIONS. LOWER LOBE AIRSPACE DISEASE MOST LIKELY DUE TO COMPR ESSIVE ATELECTASIS ALTHOUGH PNEUMONIA CANNOT BE EXCLUDED. NO OTHER SIGNIFICANT FINDING ON NON-CONTRA STED CHEST CT. TECHNICAL DOCUMENTATION: JOB ID: [id number] Quality ID # [id number]: Final reports with documentation of one or more dose reduction techniques (e.g., Au tomated exposure control, adjustment of the mA and/or kV according to patient size, use of iterative reconstruction technique) 2010 [email or web address]- All Rights Reserved Reading location - IP/workstation name: [email or web address]
[2020-08-06] MEDS ORDERED: HEPARIN SOD (PORCINE) 1,000 UNIT/ML 10 ML VIAL IV PRN (09:39)
[2020-08-06] MEDS ORDERED: EPOETIN ALFA-EPBX 20,000 UNIT in SYRINGE, DISPOSABLE, 1 EACH IV PRN (09:39)
[2020-08-06] MEDS ORDERED: NORMAL SALINE 1000 ML 1,000 ML IV PRN (09:39)
--- NOTE | 2020-08-06 09:42 | RADIOLOGY REPORT (SQ) ---
EXAM DESCRIPTION: CT ABD/PELVIS ORAL ONLY IMAGES COMPLETED DATE/TIME: 08/06/2020 8:52 am REASON FOR STUDY: possible peritonitis vs abscess COMPARISON: 07/28/2020. TECHNIQUE: CT scan of the abdomen and pelvis performed with oral contrast and no intravenous contras t. Images reviewed with lung, soft tissue, and bone windows. Reconstructed coronal and sagittal MPR i mages reviewed. All images stored on PACS. All CT scanners at this facility use dose modulation, iterative reconstruction, and/or weight based d osing when appropriate to reduce radiation dose to as low as reasonably achievable (ALARA). [facility]: Dose Right [facility]: CareDose [facility]: Dose Right [facility]: Teradose 4D [facility]: [employer] RADIATION DOSE: mGy. LIMITATIONS: Beam hardening artifact from oral contrast. FINDINGS: LOWER CHEST: See separate report of the CT of the chest. NON-CONTRASTED LIVER, SPLEEN, ADRENALS: Evaluation limited by lack of IV contrast. No identified sign ificant masses. PANCREAS: No masses. A few coarse calcifications are present. No peripancreatic inflammatory change s. GALLBLADDER: Surgically absent. A percutaneous surgical drain is present. No significant fluid rosa maria ection in the operative bed. RIGHT KIDNEY AND URETER: Pelvic kidney. No suspicious masses. Assessment limited by lack of IV contr ast. No significant calcifications. No hydronephrosis or hydroureter. LEFT KIDNEY AND URETER: No suspicious masses. Assessment limited by lack of IV contrast. No signifi cant calcifications. No hydronephrosis or hydroureter. AORTA AND RETROPERITONEUM: No aneurysm. No retroperitoneal masses or adenopathy. BOWEL AND PERITONEAL CAVITY: No obvious masses or inflammatory changes. Small amount of free fluid i n the right subhepatic space. APPENDIX: Surgically absent. PELVIS, BLADDER, AND ABDOMINAL WALL: No abnormal pelvic masses. No abdominal wall hernias. Catheter in the bladder. Again seen is a left inguinal hernia with a small portion of the bladder protruding into the proximal inguinal canal. BONES: No significant findings. Chronic degenerative changes in the spine. OTHER: No other significant finding. IMPRESSION: 1. POST CHOLECYSTECTOMY. PERCUTANEOUS SURGICAL DRAIN PRESENT. SMALL AMOUNT OF FREE FLUID IN THE RIG HT UPPER QUADRANT. NO FINDINGS TO SUGGEST DISCRETE ABSCESS. 2. OTHER CHRONIC CHANGES INCLUDING PANCREATIC CALCIFICATIONS, PELVIC RIGHT KIDNEY, AND LEFT INGUINAL HERNIA WITH A SMALL PORTION OF THE BLADDER PROTRUDING INTO THE PROXIMAL INGUINAL CANAL. NO OTHER SIG NIFICANT OR ACUTE ABDOMINAL PROCESS. TECHNICAL DOCUMENTATION: JOB ID: [id number] Quality ID # [id number]: Final reports with documentation of one or more dose reduction techniques (e.g., Au tomated exposure control, adjustment of the mA and/or kV according to patient size, use of iterative reconstruction technique) 2010 [employer] and some sugar- All Rights Reserved Reading location - IP/workstation name: [email or web address]
[2020-08-06 09:44] LABS: PARTIAL THROMBOPLASTIN TIME 52.4 SEC (23.5-35.8)
[2020-08-06 09:47] LABS: D-DIMER 3.41 ug/mL (0.00-0.50)
[2020-08-06 09:50] LABS: ABSOLUTE EOSINOPHILS # (AUTO) 0.3 10^3/uL (0.0-0.6); ABSOLUTE LYMPHOCYTES (AUTO) 1.5 10^3/uL (0.5-4.7); ABSOLUTE MONOCYTES (AUTO) 0.8 10^3/uL (0.1-1.4); ABSOLUTE NEUT (AUTO) 9.5 10^3/uL (1.7-8.2); BASOPHILS % (AUTO) 0.3 % (0-2); EOSINOPHILS % (AUTO) 2.3 % (0-6); HEMATOCRIT 21.4 % (37.9-51.0); LYMPHOCYTES % (AUTO) 12.4 % (13-45); MEAN CORPUSCULAR HEMOGLOBIN 29.9 pg (27.0-33.4); MEAN CORPUSCULAR HGB CONC 33.6 g/dL (32.0-36.0); MEAN CORPUSCULAR VOLUME 89 fl (80-97); MONOCYTES % (AUTO) 6.4 % (3-13); PLATELET COUNT 228 10^3/uL (150-450); RED CELL DISTRIBUTION WIDTH 15.8 % (11.5-14.0); SEGMENTED NEUTROPHILS % (AUTO) 78.6 % (42-78); TOTAL CELLS COUNTED % (AUTO) 100 %; WHITE BLOOD COUNT 12.1 10^3/uL (4.0-10.5)
[2020-08-06 09:57] LABS: PROTHROMBIN TIME 31.7 SEC (11.4-15.4)
[2020-08-06] MEDS ORDERED: MIDODRINE HCL 5 MG TABLET PO ONE (10:00)
[2020-08-06 10:22] LABS: HEMOGLOBIN 7.2 g/dL (13.5-17.0)
[2020-08-06] MEDS: ALBUMIN HUMAN 12.5 GM/50 ML RTUINJ IV SCH ×2 (11:32→12:31)
--- NOTE | 2020-08-06 12:34 | PDOC PROGRESS REPORT ---
Subjective Progress Note for:: 08/06/20 Subjective:: I have seen the patient in his room earlier today. He was complaining of some pain over his right inguinal trialysis catheter but other than that he did not really have much complaints. He is getting some clear liquids orally. He had CT scan of chest and the abdomen. Abdominal CT showed small amount of free fluid in the right upper quadrant but no discrete abscess and other chronic changes. The chest CT showed large bilateral pleural effusions with lower lobe airspace disease likely compressive atelectasis, pneumonia cannot be excluded. Due to persistent severe metabolic acidosis in the patient requiring transfusions we are dialyzing the patient again today. His urine output was only 425 mL for the past 24 hours and he is positive fluid balance. His bicarbonate has gone from 8-14 and still acidotic. So I am seeing him again during dialysis at this time. I have given him midodrine 10 mg x 1 dose prior to this dialysis. So far the blood pressure has been holding and is actually improved much better. He is receiving packed RBC and albumin. He will also receive 2 units of FFP. We are closely monitoring him and taking some ultrafiltration as tolerated. Reason For Visit: CHOLEDOCHOLITHIASIS, NEAR SYNCOPE, NAUSEA Physical Exam Vital Signs: Temp Pulse Resp BP Pulse Ox 97.8 F 94 16 151/81 H 95 08/06/20 12:00 08/06/20 12:00 08/06/20 12:00 08/06/20 12:00 08/06/20 10:20 Intake & Output 08/05/20 08/06/20 08/07/20 06:59 06:59 06:59 Intake Total 1283 1466 400 Output Total 1030 1115 Balance 253 351 400 Weight 69.1 kg 58.1 kg Vitals during dialysis today: Blood pressure 151/84, heart rate of 94, blood flow rate of 250 mL/min and dialysate flow rate of 600 mL/min. Exam: General appearance: PRESENT: no acute distress, cooperative, well-developed, well-nourished Head exam: PRESENT: atraumatic, normocephalic Eye exam: PRESENT: conjunctiva pale, PERRLA. ABSENT: scleral icterus Neck exam: ABSENT: JVD Respiratory exam: PRESENT: Diminished breath sounds. Positive crackles occasi onally on both lung dover ABSENT: Rhonchi, unlabored, wheezes Cardiovascular exam: PRESENT: Regular rate rhythm -+S1, +S2. ABSENT: diastolic murmur, systolic murmur GI/Abdominal exam: PRESENT: normal bowel sounds, soft. Seems to be more distended today than yesterday. ABSENT: guarding, mass, tenderness Extremities exam: Positive bilateral upper extremity edema with no lower extremity edema Neurological exam: PRESENT: alert, awake, oriented to person, place and time. Skin exam: PRESENT: dry, warm, pallor Cardiovascular exam: PRESENT: +S1, +S2 GI/Abdominal exam: PRESENT: normal bowel sounds, soft, tenderness - Mildly tender in the right upper quadrant.. ABSENT: organomegaly Results Laboratory Results: 08/06/20 09:11 08/06/20 01:04 08/05/20 08/06/20 08/06/20 22:55 01:04 01:04 WBC Cancelled RBC Cancelled Hgb Cancelled Hct Cancelled MCV Cancelled MCH Cancelled MCHC Cancelled RDW Cancelled Plt Count Cancelled Seg Neutrophils % Cancelled Sodium 138.2 Potassium 4.2 Chloride 101 Carbon Dioxide 14 L Anion Gap 23 H BUN 58 H D Creatinine 4.78 H Est GFR ( Amer) 15 L Glucose 126 H Calcium 7.8 L Total Bilirubin 1.0 AST 51 Alkaline Phosphatase 310 H Total Protein 5.0 L Albumin 2.7 L Blood Type A POSITIVE Antibody Screen NEGATIVE 08/06/20 08/06/20 03:05 09:11 WBC 10.9 H 12.1 H RBC 2.51 L 2.40 L Hgb 7.6 L 7.2 L Hct 22.2 L 21.4 L MCV 88 89 MCH 30.2 29.9 MCHC 34.2 33.6 RDW 15.3 H 15.8 H Plt Count 219 228 Seg Neutrophils % 79.1 H 78.6 H Sodium Potassium Chloride Carbon Dioxide Anion Gap BUN Creatinine Est GFR ( Amer) Glucose Calcium Total Bilirubin AST Alkaline Phosphatase Total Protein Albumin Blood Type Antibody Screen 07/28/20 18:30 Troponin I 0.023 Impressions: Abdomen Ultrasound 07/28/20 20:00 IMPRESSION: 1. Gallstones, gallbladder wall thickening, intrahepatic biliary dilatation and nonspecific possible inflammatory material surrounding the gallbladder. These findings are suspicious for acute cholecystitis. Gray's sign was negative but this does not exclude acute cholecystitis. 2. Common bile duct is only mildly dilated. . Question common bile duct stones. 3. Fatty liver. Low position of an atrophic right kidney in the pelvis. Abdomen MRI 07/29/20 04:06 IMPRESSION: 1.1 cm calcific density appears to localize to the common bile duct. The gallbladder is largely decompressed and mild intrahepatic biliary dilatation persists. Associated right upper quadrant inflammatory changes. Other chronic and incidental findings as detailed above. Catheter Placement 07/30/20 00:00 IMPRESSION: IMAGE(S) OBTAINED DURING PROCEDURE. Cholangiogram 08/01/20 00: IMPRESSION: IMAGE(S) OBTAINED DURING PROCEDURE. Fluoroscopy 08/01/20 00: IMPRESSION: IMAGE(S) OBTAINED DURING PROCEDURE. Chest X-Ray 08/05/20 00:00 IMPRESSION: Worsening aeration of the lung bases. Abdomen/Pelvis CT 08/06/20 00: IMPRESSION: 1. POST CHOLECYSTECTOMY. PERCUTANEOUS SURGICAL DRAIN PRESENT. SMALL AMOUNT OF FREE FLUID IN THE RIGHT UPPER QUADRANT. NO FINDINGS TO SUGGEST DISCRETE ABSCESS. 2. OTHER CHRONIC CHANGES INCLUDING PANCREATIC CALCIFICATIONS, PELVIC RIGHT KIDNEY, AND LEFT INGUINAL HERNIA WITH A SMALL PORTION OF THE BLADDER PROTRUDING INTO THE PROXIMAL INGUINAL CANAL. NO OTHER SIGNIFICANT OR ACUTE ABDOMINAL PROCESS. Chest CT 08/06/20 00:00 IMPRESSION: LARGE BILATERAL PLEURAL EFFUSIONS. LOWER LOBE AIRSPACE DISEASE MOST LIKELY DUE TO COMPRESSIVE ATELECTASIS ALTHOUGH PNEUMONIA CANNOT BE EXCLUDED. NO OTHER SIGNIFICANT FINDING ON NON-CONTRASTED CHEST CT. Assessment & Plan - Diagnosis (1) CKD (chronic kidney disease), stage V Is this a current diagnosis for this admission?: Yes Plan: Secondary to diabetic nephropathy with known proteinuria. I believe the patient has now reached ESRD and would require chronic long-term dialysis treatment. When I last saw him a year ago he was on the verge of going to ESRD with all complications associated with it. Patient understood that he is probably going to need long-term chronic dialysis treatment. Patient is passing some urine, made about 425 mL of urine output for the past 24 hours. Patient has persistent metabolic acidosis and is currently requiring blood product transfusions so we are doing dialysis again today. We will do dialysis today for 3 hours, using the patient's trialysis catheter, with 3 potassium bath/40 of bicarb, blood flow rate of 250 mL per minute, dialysate flow rate of 600 mL per minute, ultrafiltration 2 to 3 L as tolerated, no heparin and Retacrit with 10,000 units during dialysis intravenously. Patient is currently being monitored carefully. For planning, I request case management to arrange outpatient chronic hemodialysis treatment at [facility] upon discharge. Patient will also need permacath placement which I talked to Dr. Schaffer about. He states that he will place it once he is recovered nearing discharge. (2) Acute renal failure superimposed on stage 5 chronic kidney disease, not on chronic dialysis Qualifiers: Acute renal failure type: unspecified Qualified Code(s): N17.9 - Acute kidney failure, unspecified; N18.5 - Chronic kidney disease, stage 5 Is this a current diagnosis for this admission?: Yes Plan: Patient's kidney function has gotten worse this admission due to his acute il lness which puts him more to ESRD from CKD 5. Plan as above. (3) Metabolic acidosis Is this a current diagnosis for this admission?: Yes Plan: Severe anion gap metabolic acidosis secondary to uremia/ESRD/abdominal sepsis. Currently on oral sodium bicarbonate. Renal replacement therapy with hemodialysis will help with this as well slowly. (4) Sepsis following intra-abdominal surgery Is this a current diagnosis for this admission?: Yes Plan: Blood cultures were negative. He was given a dose of Zosyn initially. Currently on ceftriaxone, and metronidazole. Vancomycin discontinued. (5) Chronic cholecystitis due to cholelithiasis with choledocholithiasis Is this a current diagnosis for this admission?: Yes Plan: Status post cholecystectomy initially laparoscopic converted to open procedure on 08/01/2020. Status post ERCP on 07/30/2020. Surgery following. (6) Hypoalbuminemia Is this a current diagnosis for this admission?: Yes Plan: This is contributing to third spacing. We will give albumin today. 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 (8) Anemia in chronic kidney disease (CKD) Qualifiers: Chronic kidney disease stage: stage 4 (severe) Qualified Code(s): N18.4 - Chronic kidney disease, stage 4 (severe); D63.1 - Anemia in chronic kidney disease Is this a current diagnosis for this admission?: Yes Plan: Patient has chronic anemia of chronic kidney disease and has refused to take NOELLE therapy for the past 1 to 2 years. Currently his iron is also low at 41.6, TSAT19 and ferritin of 543. He was given blood transfusions last week and is receiving 1 unit of packed RBC during dialysis today. I will give Retacrit during dialysis treatment. (9) Chronic kidney disease-mineral and bone disorder Is this a current diagnosis for this admission?: Yes Plan: Phosphorus is 10.5 with PTH of 318.2 and normal corrected calcium. Once the patient is taking medications orally he would need phosphorus binder and vitamin D analogs. We will hold for now. (10) Pleural effusion Is this a current diagnosis for this admission?: Yes Plan: If it compromises the breathing, therapeutic thoracentesis might need to be done. (11) Coagulopathy Is this a current diagnosis for this admission?: Yes Plan: Elevated PT and PTT. Patient receiving fresh frozen plasma during dialysis today. (12) Essential hypertension Is this a current diagnosis for this admission?: Yes Plan: Has been relatively low during the last couple of dialysis treatments limiting ultrafiltration. I gave midodrine 10 mg x 1 dose prior to dialysis today. (13) Acute hypoxemic respiratory failure Is this a current diagnosis for this admission?: Yes Plan: Resolved. - Notes Notes: Discussed the case today with Dr. Schaffer and Dr. Moore. - Time Time with patient: 15-25 minutes
--- NOTE | 2020-08-06 17:13 | PDOC PROGRESS REPORT ---
Subjective Progress Note for:: 08/06/20 Reason For Visit: CHOLEDOCHOLITHIASIS, NEAR SYNCOPE, NAUSEA says he feels ok Physical Exam Vital Signs: Temp Pulse Resp BP Pulse Ox 97.9 F 100 16 140/80 H 95 08/06/20 14:08 08/06/20 15:10 08/06/20 14:08 08/06/20 14:08 08/06/20 10:20 Intake & Output 08/05/20 08/06/20 08/07/20 06:59 06:59 06:59 Intake Total 1283 1466 860 Output Total 1030 1115 2900 Balance 253 351 -2040 Weight 69.1 kg 58.1 kg General appearance: PRESENT: mild distress Head exam: PRESENT: normocephalic Eye exam: PRESENT: EOMI, periorbital swelling Ear exam: PRESENT: normal external ear exam Mouth exam: PRESENT: moist Teeth exam: PRESENT: edentulous Neck exam: PRESENT: full ROM Respiratory exam: PRESENT: clear to auscultation deven Cardiovascular exam: PRESENT: RRR Pulses: PRESENT: normal radial pulses, normal femoral pulses Breast: PRESENT: Normal GI/Abdominal exam: PRESENT: soft Rectal exam: PRESENT: deferred Extremities exam: PRESENT: full ROM Musculoskeletal exam: PRESENT: full ROM Neurological exam: PRESENT: alert, awake, oriented to person, oriented to place Psychiatric exam: PRESENT: appropriate affect Skin exam: PRESENT: dry Results Laboratory Results: 08/06/20 09:11 08/06/20 01:04 08/05/20 08/06/20 08/06/20 22:55 01:04 01:04 WBC Cancelled RBC Cancelled Hgb Cancelled Hct Cancelled MCV Cancelled MCH Cancelled MCHC Cancelled RDW Cancelled Plt Count Cancelled Seg Neutrophils % Cancelled Sodium 138.2 Potassium 4.2 Chloride 101 Carbon Dioxide 14 L Anion Gap 23 H BUN 58 H D Creatinine 4.78 H Est GFR ( Amer) 15 L Glucose 126 H Calcium 7.8 L Total Bilirubin 1.0 AST 51 Alkaline Phosphatase 310 H Total Protein 5.0 L Albumin 2.7 L Blood Type A POSITIVE Antibody Screen NEGATIVE 08/06/20 08/06/20 03:05 09:11 WBC 10.9 H 12.1 H RBC 2.51 L 2.40 L Hgb 7.6 L 7.2 L Hct 22.2 L 21.4 L MCV 88 89 MCH 30.2 29.9 MCHC 34.2 33.6 RDW 15.3 H 15.8 H Plt Count 219 228 Seg Neutrophils % 79.1 H 78.6 H Sodium Potassium Chloride Carbon Dioxide Anion Gap BUN Creatinine Est GFR ( Amer) Glucose Calcium Total Bilirubin AST Alkaline Phosphatase Total Protein Albumin Blood Type Antibody Screen 07/28/20 18:30 Troponin I 0.023 Impressions: Abdomen Ultrasound 07/28/20 20:00 IMPRESSION: 1. Gallstones, gallbladder wall thickening, intrahepatic biliary dilatation and nonspecific possible inflammatory material surrounding the gallbladder. These findings are suspicious for acute cholecystitis. Gray's sign was negative but this does not exclude acute cholecystitis. 2. Common bile duct is only mildly dilated. . Question common bile duct stones. 3. Fatty liver. Low position of an atrophic right kidney in the pelvis. Abdomen MRI 07/29/20 04:06 IMPRESSION: 1.1 cm calcific density appears to localize to the common bile duct. The gallbladder is largely decompressed and mild intrahepatic biliary dilatation persists. Associated right upper quadrant inflammatory changes. Other chronic and incidental findings as detailed above. Catheter Placement 07/30/20 00:00 IMPRESSION: IMAGE(S) OBTAINED DURING PROCEDURE. Cholangiogram 08/01/20 00:00 IMPRESSION: IMAGE(S) OBTAINED DURING PROCEDURE. Fluoroscopy 08/01/20 00:00 IMPRESSION: IMAGE(S) OBTAINED DURING PROCEDURE. Chest X-Ray 08/05/20 00:00 IMPRESSION: Worsening aeration of the lung bases. Abdomen/Pelvis CT 08/06/20 00:00 IMPRESSION: 1. POST CHOLECYSTECTOMY. PERCUTANEOUS SURGICAL DRAIN PRESENT. SMALL AMOUNT OF FREE FLUID IN THE RIGHT UPPER QUADRANT. NO FINDINGS TO SUGGEST DISCRETE ABSCESS. 2. OTHER CHRONIC CHANGES INCLUDING PANCREATIC CALCIFICATIONS, PELVIC RIGHT KIDNEY, AND LEFT INGUINAL HERNIA WITH A SMALL PORTION OF THE BLADDER PROTRUDING INTO THE PROXIMAL INGUINAL CANAL. NO OTHER SIGNIFICANT OR ACUTE ABDOMINAL P ROCESS. Chest CT 08/06/20 00:00 IMPRESSION: LARGE BILATERAL PLEURAL EFFUSIONS. LOWER LOBE AIRSPACE DISEASE MOST LIKELY DUE TO COMPRESSIVE ATELECTASIS ALTHOUGH PNEUMONIA CANNOT BE EXCLUDED. NO OTHER SIGNIFICANT FINDING ON NON-CONTRASTED CHEST CT. 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 Patient is developed increasing PT PTT last night and had significant subcuta neous bleeding from skin excoriations bleeding around his tube and it was noted that his PT/PTT were markedly elevated. He received 2 units of FFP last night however upon examination the patient this morning it was noted that his PT PTT still elevated consistent with a vitamin K deficiency and malnutrition. He was seen by Dr. Noemi gates this morning who ordered vitamin K for him which improved his INR from 7 down to 3. He remains at bedrest at this point still n.p.o. because he has not had return of bowel function a CT scan was obtained today which does not show any significant intra-abdominal sepsis. His white count remains relatively stable at 12 today. Plan we will continue correcting his coagulopathy IV fluids TPN and await a return of bowel function. Surgical continue to follow
--- NOTE | 2020-08-06 17:16 | PDOC PROGRESS REPORT ---
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 Initial evaluation in the ED showed the patient was hypertensive with leukocytosis and elevated bilirubin and transaminase including alkaline phosphatase. CT of the abdomen showed cholelithiasis with questionable choled ocholithiasis. On 07/30/2020 he underwent ERCP by Dr. 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 On 08/01/2020 he underwent laparoscopic cholecystectomy which was converted to open cholecystectomy with Kapil-en-Y hepatic jejunostomy by Dr. Schaffer. Postoperatively he was admitted in the ICU for closer monitoring. He had acute hypoxemic respiratory failure and hypotension postoperatively. He was successfully extubated though. He required 4 units of packed RBC, 1 unit FFP and 3 L of lactated Ringer's and 500 mL of normal saline. Apparently there was significant bile staining of the retroperitoneum behind the pancreas and the duodenum. He was started on metronidazole, ceftriaxone, vancomycin and fluconazole. Over the weekend the patient was monitored while in the ICU and surprisingly did well." 08/04/2020 Patient popped out of ICU overnight. Creatinine lower today. Blood cultures negative. Patient states he has not had a bowel movement yet and would like a bowel regimen started. He does have some abdominal pain from his recent surgery but other than that he has no new complaints. General surgery is following. 08/05/2020 Patient repeatedly states he feels fine and is doing well, however his bicarb is acutely dropped to 8 and his anion gap is 26. I am concerned that he may be developing an intra-abdominal infection from his recent surgery and I have ordered a CT of his chest/abdomen/pelvis to also help rule out a developing pneumonia. I discussed case with Dr. Schaffer as well as Dr. Hill. Patient did not get much dialysis as his blood pressure was quite low. Nephrology recommended giving albumin and have also started as needed midodrine to be given 1 hour prior to dialysis sessions. 08/06/2020 Patient doing quite poorly overnight on into this morning reportedly. Hemodynamically he remained stable thankfully. His hemoglobin acutely dropped and I transfused him 1 unit PRBC. He was given multiple units FFP overnight for coagulopathy and Dr. Wilfrido gates has given him multiple doses of vitamin K which seems to have brought his INR down considerably. Patient had what looked to be silvestre blood in his abdominal drain bulb. He likely has vitamin K deficiency from prolonged hospitalization and poor nutrition. I discussed the case with Dr. Schaffer who did not want the patient to get an NG tube as he is concerned about the anastomoses being damaged by this. It may be necessary to place an NG tube in order to give the patient adequate nutrition. Alternatively, we could attempt TPN though this is not a long-term solution. Creatinine lower today. Discussed case with nephrology who will have the patient dialyzed today after getting transfused. Transfer patient to [facility], low threshold for ICU transfer. I am concerned that if patient does not improve in the near future he may not survive this admission. He is extremely frail and weak. Reason For Visit: CHOLEDOCHOLITHIASIS, NEAR SYNCOPE, NAUSEA Physical Exam Vital Signs: Temp Pulse Resp BP Pulse Ox 97.9 F 100 16 140/80 H 95 08/06/20 14:08 08/06/20 15:10 08/06/20 14:08 08/06/20 14:08 08/06/20 10:20 Intake & Output 08/05/20 08/06/20 08/07/20 06:59 06:59 06:59 Intake Total 1283 1466 860 Output Total 1030 1115 2900 Balance 253 351 -2040 Weight 69.1 kg 58.1 kg Exam: General appearance: PRESENT: no acute distress, appears thin and weak Head exam: PRESENT: atraumatic, normocephalic Eye exam: PRESENT: conjunctiva pale Mouth exam: PRESENT: moist Respiratory exam: PRESENT: clear to auscultation deven. ABSENT: rales, rhonchi, wheezes Cardiovascular exam: PRESENT: RRR. ABSENT: diastolic murmur, rubs, systolic murmur GI/Abdominal exam: PRESENT: normal bowel sounds, soft, tenderness - Mild around surgical wounds, healing. Right abdomen drain with dark red bloody fluid ABSENT: distended, guarding, mass, organolmegaly, rebound Rectal exam: PRESENT: deferred Neurological exam: PRESENT: alert, awake, oriented to person, oriented to place, oriented to time, oriented to situation Psychiatric exam: PRESENT: appropriate affect, normal mood Skin exam: PRESENT: dry, intact, warm Results Laboratory Results: 08/06/20 09:11 08/06/20 01:04 08/05/20 08/06/20 08/06/20 22:55 01:04 01:04 WBC Cancelled RBC Cancelled Hgb Cancelled Hct Cancelled MCV Cancelled MCH Cancelled MCHC Cancelled RDW Cancelled Plt Count Cancelled Seg Neutrophils % Cancelled Sodium 138.2 Potassium 4.2 Chloride 101 Carbon Dioxide 14 L Anion Gap 23 H BUN 58 H D Creatinine 4.78 H Est GFR ( Amer) 15 L Glucose 126 H Calcium 7.8 L Total Bilirubin 1.0 AST 51 Alkaline Phosphatase 310 H Total Protein 5.0 L Albumin 2.7 L Blood Type A POSITIVE Antibody Screen NEGATIVE 08/06/20 08/06/20 03:05 09:11 WBC 10.9 H 12.1 H RBC 2.51 L 2.40 L Hgb 7.6 L 7.2 L Hct 22.2 L 21.4 L MCV 88 89 MCH 30.2 29.9 MCHC 34.2 33.6 RDW 15.3 H 15.8 H Plt Count 219 228 Seg Neutrophils % 79.1 H 78.6 H Sodium Potassium Chloride Carbon Dioxide Anion Gap BUN Creatinine Est GFR ( Amer) Glucose Calcium Total Bilirubin AST Alkaline Phosphatase Total Protein Albumin Blood Type Antibody Screen 07/28/20 18:30 Troponin I 0.023 Impressions: Abdomen Ultrasound 07/28/20 20:00 IMPRESSION: 1. Gallstones, gallbladder wall thickening, intrahepatic biliary dilatation and nonspecific possible inflammatory material surrounding the gallbladder. These findings are suspicious for acute cholecystitis. Gray's sign was negative but this does not exclude acute cholecystitis. 2. Common bile duct is only mildly dilated. . Question common bile duct stones. 3. Fatty liver. Low position of an atrophic right kidney in the pelvis. Abdomen MRI 07/29/20 04:06 IMPRESSION: 1.1 cm calcific density appears to localize to the common bile duct. The gallbladder is largely decompressed and mild intrahepatic biliary dilatation persists. Associated right upper quadrant inflammatory changes. Other chronic and incidental findings as detailed above. Catheter Placement 07/30/20 00:00 IMPRESSION: IMAGE(S) OBTAINED DURING PROCEDURE. Cholangiogram 08/01/20 00:00 IMPRESSION: IMAGE(S) OBTAINED DURING PROCEDURE. Fluoroscopy 08/01/20 00:00 IMPRESSION: IMAGE(S) OBTAINED DURING PROCEDURE. Chest X-Ray 08/05/20 00:00 IMPRESSION: Worsening aeration of the lung bases. Abdomen/Pelvis CT 08/06/20 00:00 IMPRESSION: 1. POST CHOLECYSTECTOMY. PERCUTANEOUS SURGICAL DRAIN PRESENT. SMALL AMOUNT OF FREE FLUID IN THE RIGHT UPPER QUADRANT. NO FINDINGS TO SUGGEST DISCRETE ABSCESS. 2. OTHER CHRONIC CHANGES INCLUDING PANCREATIC CALCIFICATIONS, PELVIC RIGHT KIDNEY, AND LEFT INGUINAL HERNIA WITH A SMALL PORTION OF THE BLADDER PROTRUDING INTO THE PROXIMAL INGUINAL CANAL. NO OTHER SIGNIFICANT OR ACUTE ABDOMINAL PROCESS. Chest CT 08/06/20 00:00 IMPRESSION: LARGE BILATERAL PLEURAL EFFUSIONS. LOWER LOBE AIRSPACE DISEASE MOST LIKELY DUE TO COMPRESSIVE ATELECTASIS ALTHOUGH PNEUMONIA CANNOT BE EXCLU DED. NO OTHER SIGNIFICANT FINDING ON NON-CONTRASTED CHEST CT. Assessment and Plan - Diagnosis (1) Chronic cholecystitis due to cholelithiasis with choledocholithiasis Is this a current diagnosis for this admission?: Yes Plan: ERCP attempted by Dr. dahl found to have gallstone eroding through duct, procedure aborted General surgery consulted and patient underwent exploratory laparotomy, s/p hepatic jejunostomy, repair of duct and stone removal Pain management Trend CMP GI following CT abdomen/pelvis to reevaluate abdomen 08/05: Did not show any acute findings other than some small amount of fluid collection, no abscess CT chest showed large bilateral pleural effusions Antibiotics continue with ceftriaxone and Flagyl, stop vancomycin as there is no evidence of MRSA infection (2) Acute renal failure superimposed on stage 5 chronic kidney disease, not on chronic dialysis Qualifiers: Acute renal failure type: unspecified Qualified Code(s): N17.9 - Acute kidney failure, unspecified; N18.5 - Chronic kidney disease, stage 5 Is this a current diagnosis for this admission?: Yes Plan: Per Previous Physician: "Monitor urine output. Maintain SpO2 93+%. As the patient's urine output does seem to be slowly improving, cautious use of diuretics is advised. Furosemide 20 mg IV every 8 hours x3 doses." Slow, gradual improvement in creatinine Monitor I/O Nephrology consulted: Dialysis ongoing Trend BMP (3) Chronic anemia Is this a current diagnosis for this admission?: Yes Plan: Trend CBC Likely due to surgery and chronic renal failure Acute on chronic due to blood loss anemia from coagulopathy Transfused 1 unit PRBC on 08/06 Given multiple units FFP on 08/06 (4) Essential hypertension Is this a current diagnosis for this admission?: Yes (5) Metabolic acidosis Is this a current diagnosis for this admission?: Yes (6) Nausea and vomiting Qualifiers: Vomiting type: unspecified Vomiting Intractability: unspecified Qualified Code(s): R11.2 - Nausea with vomiting, unspecified Is this a current diagnosis for this admission?: Yes (7) Type 2 diabetes mellitus Qualifiers: Diabetes mellitus [facility] insulin use: without long term care administrator use Diabetes mellitus complication status: with kidney complications Diabetes mellitus complication detail: with chronic kidney disease Chronic kidney disease stage: stage 5, not on chronic dialysis Qualified Code(s): E11.22 - Type 2 diabetes mellitus with diabetic chronic kidney disease; N18.5 - Chronic kidney disease, stage 5 Is this a current diagnosis for this admission?: Yes (8) Abnormal findings on imaging of biliary tract Is this a current diagnosis for this admission?: Yes (9) GAURAV (acute kidney injury) Is this a current diagnosis for this admission?: Yes (10) Choledocholithiasis Is this a current diagnosis for this admission?: Yes (11) Vitamin K deficiency coagulation disorder Is this a current diagnosis for this admission?: Yes Plan: Given vitamin K Hematology consulted FFP given INR with good response to above interventions - Plan Summary Summary: TINA YUAN is a 70 year old male with HTN, HLD, DM2, CKD who presented on 07/28/2020 with fatigue, malaise, anorexia, nausea/vomiting/diarrhea x2 days and near-syncope resulting in fall on the day of admission. In the ED, he was found to be hypotensive, have leukocytosis, elevated bilirubin of 4.8 and elevation of transaminases and alkaline phosphatase. CT abdomen pelvis showed cholelithiasis and questionable choledocholithiasis. MRCP revealed a 1 cm stone in the common bile duct causing intra-hepatic duct dilatation. He was initially scheduled to be transferred to [place] to undergo ERCP there and has been waiting in the emergency room for transfer; however, the transfer never occurred and Dr. Dahl has now agreed to perform the ERCP tonight here at [facility] instead. The hospitalist service was therefore contacted for admission. Patient will be started on IVF and antibiotics with cefazolin/metronidazole. He remains NPO for ERCP tonight. GI consulted. General surgery consulted for eventual lap pete. GAURAV on CKD due to dehydration and N/V, will consult nephrology. HTN uncontrolled, restart home medications. Repeat CMP/CBC in AM. 07/31/2020: Patient with failed ERCP 07/30/2020; operating report was reviewed in detail. 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 Pt scheduled for laproscopic cholecystectomy with choliogram tomorrow. Dr. Barragan, nephrology, was consulted. Pt was found to be uremic by Dr. Barragan, requesting urgen placement of temporary femal dialysis catheter for short term hemodialysis treatment. Hurst catheter was placed to monitor strick I&Os. Patient with ~300cc urine approximately 30 minutes after catheter placement, as noted on exam. Dialysis catheter was not placed today, pt unable to receive dialysis until Monday. He appears to be making urine. He is receiving IV fluids at this time. Will monitor closely. Repeat CMP/CBC in AM prior to procedure. - Time Time Spent with patient: 35 or more minutes Medications reviewed and adjusted accordingly: Yes Anticipated Discharge Disposition: [facility] Facility Anticipated Discharge Timeframe: within 72 hours - Inpatient Certification Based on my medical assessment, after consideration of the patient's comorbidities, presenting symptoms, or acuity I expect that the services needed warrant INPATIENT care.: Yes I certify that my determination is in accordance with my understanding of Medicare's requirements for reasonable and necessary INPATIENT services [42 CFR 412.3e].: Yes Medical Necessity: Significant Comorbidiites Make Outpatient Treatment Too Risky, Need Close Monitoring Due to Risk of Patient Decompensation, Need for IV Antibiotics, Risk of Complication if Not Cared For in Hospital, Risk of Diagnosis Which Will Require Inpatient Eval/Care/Monitoring
[2020-08-06] MEDS: DIPHENHYDRAMINE HCL 25 MG/10 ML UDC PO PRN (18:29)
[2020-08-06] MEDS: CEFTRIAXONE 1 GM/D5W RTU 1 GM/50 ML RTUPB IV SCH (18:29)
[2020-08-07] MEDS: SODIUM BICARBONATE 650 MG TABLET PO SCH ×5 (00:50→23:58)
[2020-08-07] MEDS: METOPROLOL TARTRATE PF/INJ 5 MG/5 ML SDV IV SCH ×5 (00:50→23:58)
[2020-08-07] MEDS: METOCLOPRAMIDE HCL INJ/PF 10 MG/2 ML SDV IV SCH ×4 (02:39→21:38)
[2020-08-07] MEDS ORDERED: EPOETIN ALFA-EPBX 10,000 UNIT in SYRINGE, DISPOSABLE, 1 EACH IV PRN ×2 (05:00→13:57)
[2020-08-07] MEDS ORDERED: HEPARIN SOD (PORCINE) 1,000 UNIT/ML 10 ML VIAL IV PRN (05:00)
[2020-08-07] MEDS ORDERED: NORMAL SALINE 1000 ML 1,000 ML IV PRN (05:00)
[2020-08-07] MEDS ORDERED: ALBUMIN HUMAN 25 GM/100 ML RTUINJ IV PRN (05:00)
[2020-08-07] MEDS: HEPARIN SOD (PORCINE) 5,000 UNIT/ML 1 ML VIAL SUBCUT SCH ×3 (05:38→21:42)
[2020-08-07 06:21] LABS: HEMATOCRIT 24.4 % (37.9-51.0); HEMOGLOBIN 8.4 g/dL (13.5-17.0); MEAN CORPUSCULAR HEMOGLOBIN 30.5 pg (27.0-33.4); MEAN CORPUSCULAR HGB CONC 34.5 g/dL (32.0-36.0); MEAN CORPUSCULAR VOLUME 89 fl (80-97); PLATELET COUNT 213 10^3/uL (150-450); RED BLOOD COUNT 2.76 10^6/uL (4.35-5.55); RED CELL DISTRIBUTION WIDTH 14.6 % (11.5-14.0); WHITE BLOOD COUNT 12.3 10^3/uL (4.0-10.5)
[2020-08-07 06:42] LABS: ALBUMIN 2.6 g/dL (3.5-5.0); ALKALINE PHOSPHATASE 596 U/L (38-126); ASPARTATE AMINO TRANSFERASE 39 U/L (17-59); BILIRUBIN,TOTAL 1.2 mg/dL (0.2-1.3); BLOOD UREA NITROGEN 38 mg/dL (7-20); CALCIUM 7.8 mg/dL (8.4-10.2); GLUCOSE 101 mg/dL (75-110); POTASSIUM 3.6 mmol/L (3.6-5.0); TOTAL PROTEIN 4.3 g/dL (6.3-8.2)
[2020-08-07 06:48] LABS: CARBON DIOXIDE 21 mmol/L (22-30); CHLORIDE 98 mmol/L (98-107)
[2020-08-07 06:53] LABS: ANION GAP 20 (5-19)
[2020-08-07] MEDS ORDERED: AMINO ACIDS 5 %/DEXTROSE 20 % 1,000 ML IV PRN (07:32)
[2020-08-07] MEDS ORDERED: DEXTROSE 50%-WATER 25 GM/50 ML DISP.SYRIN IV PRN ×2 (07:32)
[2020-08-07] MEDS ORDERED: DEXTROSE 10%-WATER 1,000 ML IV PRN (07:32)
[2020-08-07] MEDS ORDERED: GLUCAGON,HUMAN RECOMB 1 MG INJ IM PRN (07:32)
[2020-08-07] MEDS ORDERED: DEXTROSE 40% GEL 15 GM TUBE PO PRN ×2 (07:32)
--- NOTE | 2020-08-07 09:13 | PDOC PROGRESS REPORT ---
Subjective Progress Note for:: 08/07/20 Subjective:: Patient seen while on dialysis. He reports that he is feeling better. He denies any dyspnea or pain. No evidence of active bleeding. Reason For Visit: CHOLEDOCHOLITHIASIS, NEAR SYNCOPE, NAUSEA Physical Exam Vital Signs: Temp Pulse Resp BP Pulse Ox 98.6 F 95 19 152/77 H 92 08/07/20 03:48 08/07/20 03:48 08/07/20 03:48 08/07/20 03:48 08/07/20 03:48 Intake & Output 08/06/20 08/07/20 08/08/20 06:59 06:59 06:59 Intake Total 1466 1120 Output Total 1115 3565 Balance 351 -2445 Weight 58.1 kg 49.5 kg General appearance: PRESENT: thin Head exam: PRESENT: normocephalic Eye exam: PRESENT: EOMI Respiratory exam: PRESENT: clear to auscultation deven, unlabored Cardiovascular exam: PRESENT: RRR GI/Abdominal exam: PRESENT: normal bowel sounds, soft Extremities exam: ABSENT: pedal edema Neurological exam: PRESENT: alert, awake Psychiatric exam: PRESENT: appropriate affect Skin exam: PRESENT: normal color Results Laboratory Results: 08/07/20 06:00 08/07/20 06:00 08/05/20 08/06/20 08/07/20 22:55 09:11 06:00 WBC 12.1 H RBC 2.40 L Hgb 7.2 L Hct 21.4 L MCV 89 MCH 29.9 MCHC 33.6 RDW 15.8 H Plt Count 228 Seg Neutrophils % 78.6 H Sodium 138.6 Potassium 3.6 Chloride 98 Carbon Dioxide 21 L Anion Gap 20 H BUN 38 H Creatinine 3.57 H Est GFR ( Amer) 21 L Glucose 101 Calcium 7.8 L Total Bilirubin 1.2 AST 39 Alkaline Phosphatase 596 H Total Protein 4.3 L Albumin 2.6 L Blood Type A POSITIVE Antibody Screen NEGATIVE 08/07/20 08/07/20 06:00 06:00 WBC 12.3 H RBC 2.76 L Hgb 8.4 L Hct 24.4 L MCV 89 MCH 30.5 MCHC 34.5 RDW 14.6 H Plt Count Cancelled 213 Seg Neutrophils % Sodium Potassium Chloride Carbon Dioxide Anion Gap BUN Creatinine Est GFR ( Amer) Glucose Calcium Total Bilirubin AST Alkaline Phosphatase Total Protein Albumin Blood Type Antibody Screen 07/28/20 18:30 Troponin I 0.023 Impressions: Abdomen Ultrasound 07/28/20 20:00 IMPRESSION: 1. Gallstones, gallbladder wall thickening, intrahepatic biliary dilatation and nonspecific possible inflammatory material surrounding the gallbladder. These findings are suspicious for acute cholecystitis. Gray's sign was negative but this does not exclude acute cholecystitis. 2. Common bile duct is only mildly dilated. . Question common bile duct stones. 3. Fatty liver. Low position of an atrophic right kidney in the pelvis. Abdomen MRI 07/29/20 04:06 IMPRESSION: 1.1 cm calcific density appears to localize to the common bile duct. The gallbladder is largely decompressed and mild intrahepatic biliary dilatation persists. Associated right upper quadrant inflammatory changes. Other chronic and incidental findings as detailed above. Catheter Placement 07/30/20 00:00 IMPRESSION: IMAGE(S) OBTAINED DURING PROCEDURE. Cholangiogram 08/01/20 00:00 IMPRESSION: IMAGE(S) OBTAINED DURING PROCEDURE. Fluoroscopy 08/01/20 00:00 IMPRESSION: IMAGE(S) OBTAINED DURING PROCEDURE. Chest X-Ray 08/05/20 00:00 IMPRESSION: Worsening aeration of the lung bases. Abdomen/Pelvis CT 08/06/20 00:00 IMPRESSION: 1. POST CHOLECYSTECTOMY. PERCUTANEOUS SURGICAL DRAIN PRESENT. SMALL AMOUNT OF FREE FLUID IN THE RIGHT UPPER QUADRANT. NO FINDINGS TO SUGGEST DISCRETE ABSCES S. 2. OTHER CHRONIC CHANGES INCLUDING PANCREATIC CALCIFICATIONS, PELVIC RIGHT KIDNEY, AND LEFT INGUINAL HERNIA WITH A SMALL PORTION OF THE BLADDER PROTRUDING INTO THE PROXIMAL INGUINAL CANAL. NO OTHER SIGNIFICANT OR ACUTE ABDOMINAL PROCESS. Chest CT 08/06/20 00:00 IMPRESSION: LARGE BILATERAL PLEURAL EFFUSIONS. LOWER LOBE AIRSPACE DISEASE MOST LIKELY DUE TO COMPRESSIVE ATELECTASIS ALTHOUGH PNEUMONIA CANNOT BE EXCLUDED. NO OTHER SIGNIFICANT FINDING ON NON-CONTRASTED CHEST CT. Assessment & Plan - Diagnosis (1) Acute renal failure superimposed on stage 5 chronic kidney disease, not on chronic dialysis Qualifiers: Acute renal failure type: unspecified Qualified Code(s): N17.9 - Acute kidney failure, unspecified; N18.5 - Chronic kidney disease, stage 5 Is this a current diagnosis for this admission?: Yes Plan: On hemodialysis now. (2) Choledocholithiasis Is this a current diagnosis for this admission?: Yes Plan: s/p surgery. Appears resolved. Normal Bili. (3) Chronic anemia Is this a current diagnosis for this admission?: Yes Plan: His HGB has improved. On EPO per renal. No indication for blood transfusion. Will follow. (4) Vitamin K deficiency coagulation disorder Is this a current diagnosis for this admission?: Yes Plan: Coag panel much improved after Vit K. No active bleeding. D-dimer elevated. Would continue prophylactic SC heparin for DVTs, if OK with surgery. - Time Time Spent with patient: 15-24 minutes
[2020-08-07] MEDS ORDERED: EPOETIN ALFA-EPBX 20,000 UNIT in SYRINGE, DISPOSABLE, 1 EACH IV PRN (09:46)
[2020-08-07] MEDS ORDERED: BISACODYL 10 MG SUPP.RECT PR ONE (10:00)
[2020-08-07] MEDS ORDERED: INSULIN REG, HUMAN 100 UNIT/ML 3 ML VIAL SUBCUT SCH (12:00)
--- NOTE | 2020-08-07 12:01 | PDOC PROGRESS REPORT ---
Subjective Progress Note for:: 08/07/20 Subjective:: Seen in dialysis today feels better Reason For Visit: CHOLEDOCHOLITHIASIS, NEAR SYNCOPE, NAUSEA Physical Exam Vital Signs: Temp Pulse Resp BP Pulse Ox 98.6 F 90 19 152/77 H 92 08/07/20 03:48 08/07/20 07:00 08/07/20 03:48 08/07/20 03:48 08/07/20 03:48 Intake & Output 08/06/20 08/07/20 08/08/20 06:59 06:59 06:59 Intake Total 1466 1120 Output Total 1115 3565 2300 Balance 351 -2715 -2300 Weight 58.1 kg 49.5 kg General appearance: PRESENT: no acute distress Head exam: PRESENT: normocephalic Eye exam: PRESENT: EOMI Ear exam: PRESENT: normal external ear exam Mouth exam: PRESENT: moist Neck exam: PRESENT: full ROM Respiratory exam: PRESENT: clear to auscultation deven Cardiovascular exam: PRESENT: RRR Pulses: PRESENT: normal femoral pulses Vascular exam: PRESENT: normal capillary refill Breast: PRESENT: Normal GI/Abdominal exam: PRESENT: soft, other - Right AUBREY bulb less drainage serous sanguinous. Rectal exam: PRESENT: deferred Extremities exam: PRESENT: full ROM Musculoskeletal exam: PRESENT: full ROM Neurological exam: PRESENT: alert, awake, oriented to person, oriented to place Psychiatric exam: PRESENT: appropriate affect Skin exam: PRESENT: dry Results Laboratory Results: 08/07/20 06:00 08/07/20 06:00 08/05/20 08/07/20 08/07/20 22:55 06:00 06:00 WBC RBC Hgb Hct MCV MCH MCHC RDW Plt Count Cancelled Sodium 138.6 Potassium 3.6 Chloride 98 Carbon Dioxide 21 L Anion Gap 20 H BUN 38 H Creatinine 3.57 H Est GFR ( Amer) 21 L Glucose 101 Calcium 7.8 L Total Bilirubin 1.2 AST 39 Alkaline Phosphatase 596 H Total Protein 4.3 L Albumin 2.6 L Blood Type A POSITIVE Antibody Screen NEGATIVE 08/07/20 06:00 WBC 12.3 H RBC 2.76 L Hgb 8.4 L Hct 24.4 L MCV 89 MCH 30.5 MCHC 34.5 RDW 14.6 H Plt Count 213 Sodium Potassium Chloride Carbon Dioxide Anion Gap BUN Creatinine Est GFR ( Amer) Glucose Calcium Total Bilirubin AST Alkaline Phosphatase Total Protein Albumin Blood Type Antibody Screen 07/28/20 18:30 Troponin I 0.023 Impressions: Abdomen Ultrasound 07/28/20 20:00 IMPRESSION: 1. Gallstones, gallbladder wall thickening, intrahepatic biliary dilatation and nonspecific possible inflammatory material surrounding the gallbladder. These findings are suspicious for acute cholecystitis. Gray's sign was negative but this does not exclude acute cholecystitis. 2. Common bile duct is only mildly dilated. . Question common bile duct stones. 3. Fatty liver. Low position of an atrophic right kidney in the pelvis. Abdomen MRI 07/29/20 04:06 IMPRESSION: 1.1 cm calcific density appears to localize to the common bile duct. The gallbladder is largely decompressed and mild intrahepatic biliary dilatation persists. Associated right upper quadrant inflammatory changes. Other chronic and incidental findings as detailed above. Catheter Placement 07/30/20 00:00 IMPRESSION: IMAGE(S) OBTAINED DURING PROCEDURE. Cholangiogram 08/01/20 00:00 IMPRESSION: IMAGE(S) OBTAINED DURING PROCEDURE. Fluoroscopy 08/01/20 00:00 IMPRESSION: IMAGE(S) OBTAINED DURING PROCEDURE. Chest X-Ray 08/05/20 00:00 IMPRESSION: Worsening aeration of the lung bases. Abdomen/Pelvis CT 08/06/20 00:00 IMPRESSION: 1. POST CHOLECYSTECTOMY. PERCUTANEOUS SURGICAL DRAIN PRESENT. SMALL AMOUNT OF FREE FLUID IN THE RIGHT UPPER QUADRANT. NO FINDINGS TO SUGGEST DISCRETE ABSCESS. 2. OTHER CHRONIC CHANGES INCLUDING PANCREATIC CALCIFICATIONS, PELVIC RIGHT KIDNEY, AND LEFT INGUINAL HERNIA WITH A SMALL PORTION OF THE BLADDER PROTRUDING INTO THE PROXIMAL INGUINAL CANAL. NO OTHER SIGNIFICANT OR ACUTE ABDOMINAL PROCESS. Chest CT 08/06/20 00:00 IMPRESSION: LARGE BILATERAL PLEURAL EFFUSIONS. LOWER LOBE AIRSPACE DISEASE MOST LIKELY DUE TO COMPRESSIVE ATELECTASIS ALTHOUGH PNEUMONIA CANNOT BE EXCLUDED. NO OTHER SIGNIFICANT FINDING ON NON-CONTRASTED CHEST CT. Assessment & Plan - Time Anticipated Discharge Disposition: Home, Self Care Anticipated Discharge Timeframe: within 24 hours - Plan Summary Plan Summary: Status post pedicle jejunostomy for bile duct stone. Patient was in renal failure now on dialysis. Dialysis was able to remove approximately 5 L over the course of last 48 hours. Patient's acidosis is markedly improved as well as his coagulopathy. Patient is now started have some bowel function with some flatus this morning. We will full liquid diet for now Dulcolax suppository await full return of bowel function before allowing him to have solid food.
[2020-08-07] MEDS: PHYTONADIONE INJ 10 MG/1 ML AMPULE SUBCUT SCH (12:42)
[2020-08-07] MEDS ORDERED: BENZOCAINE/MENTHOL SORE THROAT LOZENGE BUCCAL PRN (13:27)
--- NOTE | 2020-08-07 16:55 | PDOC PROGRESS REPORT ---
Subjective Progress Note for:: 08/07/20 Subjective:: I am seeing the patient during dialysis treatment this morning. He looks much better and had a spell. He said he feels better. He tells me he is able to tolerate some liquids. His blood pressure is also improved compared to the last 48 hours. He is currently tolerating dialysis with ultrafiltration. Reason For Visit: CHOLEDOCHOLITHIASIS, NEAR SYNCOPE, NAUSEA Physical Exam Vital Signs: Temp Pulse Resp BP Pulse Ox 98.6 F 90 19 152/77 H 92 08/07/20 03:48 08/07/20 07:00 08/07/20 03:48 08/07/20 03:48 08/07/20 03:48 Intake & Output 08/06/20 08/07/20 08/08/20 06:59 06:59 06:59 Intake Total 1466 1120 Output Total 1115 3565 Balance 351 -2445 Weight 58.1 kg 49.5 kg Vitals during dialysis: Blood pressure 130/94, heart rate of 96, blood flow rate of 250 mL/min and dialysate flow rate of 600 mL/min. Exam: General appearance: PRESENT: no acute distress, cooperative, fairly developed and fairly nourished Head exam: PRESENT: atraumatic, normocephalic Eye exam: PRESENT: conjunctiva slightly pale but much improved, PERRLA. ABSENT: scleral icterus Neck exam: ABSENT: JVD Respiratory exam: PRESENT: Diminished breath sounds. ABSENT: crackles, rales, rhonchi, unlabored, wheezes Cardiovascular exam: PRESENT: Regular rate rhythm -+S1, +S2. ABSENT: diastolic murmur, systolic murmur GI/Abdominal exam: PRESENT: Hypoactive bowel sounds, soft. ABSENT: guarding, mass, tenderness Extremities exam: Upper extremity edema but no lower extremity edema Neurological exam: PRESENT: alert, awake, oriented to person, place and time. Skin exam: PRESENT: dry, warm, Cardiovascular exam: PRESENT: +S1, +S2 GI/Abdominal exam: PRESENT: normal bowel sounds, soft, tenderness - Mildly tender in the right upper quadrant.. ABSENT: organomegaly Results Laboratory Results: 08/07/20 06:00 08/07/20 06:00 08/05/20 08/06/20 08/07/20 22:55 09:11 06:00 WBC 12.1 H RBC 2.40 L Hgb 7.2 L Hct 21.4 L MCV 89 MCH 29.9 MCHC 33.6 RDW 15.8 H Plt Count 228 Seg Neutrophils % 78.6 H Sodium 138.6 Potassium 3.6 Chloride 98 Carbon Dioxide 21 L Anion Gap 20 H BUN 38 H Creatinine 3.57 H Est GFR ( Amer) 21 L Glucose 101 Calcium 7.8 L Total Bilirubin 1.2 AST 39 Alkaline Phosphatase 596 H Total Protein 4.3 L Albumin 2.6 L Blood Type A POSITIVE Antibody Screen NEGATIVE 08/07/20 08/07/20 06:00 06:00 WBC 12.3 H RBC 2.76 L Hgb 8.4 L Hct 24.4 L MCV 89 MCH 30.5 MCHC 34.5 RDW 14.6 H Plt Count Cancelled 213 Seg Neutrophils % Sodium Potassium Chloride Carbon Dioxide Anion Gap BUN Creatinine Est GFR ( Amer) Glucose Calcium Total Bilirubin AST Alkaline Phosphatase Total Protein Albumin Blood Type Antibody Screen 07/28/20 18:30 Troponin I 0.023 Impressions: Abdomen Ultrasound 07/28/20 20:00 IMPRESSION: 1. Gallstones, gallbladder wall thickening, intrahepatic biliary dilatation and nonspecific possible inflammatory material surrounding the gallbladder. These findings are suspicious for acute cholecystitis. Gray's sign was negative but this does not exclude acute cholecystitis. 2. Common bile duct is only mildly dilated. . Question common bile duct stones. 3. Fatty liver. Low position of an atrophic right kidney in the pelvis. Abdomen MRI 07/29/20 04:06 IMPRESSION: 1.1 cm calcific density appears to localize to the common bile duct. The gallbladder is largely decompressed and mild intrahepatic biliary dilatation persists. Associated right upper quadrant inflammatory changes. Other chronic and incidental findings as detailed above. Catheter Placement 07/30/20 00:00 IMPRESSION: IMAGE(S) OBTAINED DURING PROCEDURE. Cholangiogram 08/01/20 00:00 IMPRESSION: IMAGE(S) OBTAINED DURING PROCEDURE. Fluoroscopy 08/01/20 00:00 IMPRESSION: IMAGE(S) OBTAINED DURING PROCEDURE. Chest X-Ray 08/05/20 00:00 IMPRESSION: Worsening aeration of the lung bases. Abdomen/Pelvis CT 08/06/20 00:00 IMPRESSION: 1. POST CHOLECYSTECTOMY. PERCUTANEOUS SURGICAL DRAIN PRESENT. SMALL AMOUNT OF FREE FLUID IN THE RIGHT UPPER QUADRANT. NO FINDINGS TO SUGGEST DISCRETE ABSCESS. 2. OTHER CHRONIC CHANGES INCLUDING PANCREATIC CALCIFICATIONS, PELVIC RIGHT KIDNEY, AND LEFT INGUINAL HERNIA WITH A SMALL PORTION OF THE BLADDER PROTRUDING INTO THE PROXIMAL INGUINAL CANAL. NO OTHER SIGNIFICANT OR ACUTE ABDOMINAL PROCESS. Chest CT 08/06/20 00:00 IMPRESSION: LARGE BILATERAL PLEURAL EFFUSIONS. LOWER LOBE AIRSPACE DISEASE MOST LIKELY DUE TO COMPRESSIVE ATELECTASIS ALTHOUGH PNEUMONIA CANNOT BE E XCLUDED. NO OTHER SIGNIFICANT FINDING ON NON-CONTRASTED CHEST CT. Assessment & Plan - Diagnosis (1) CKD (chronic kidney disease), stage V Is this a current diagnosis for this admission?: Yes Plan: Secondary to diabetic nephropathy with known proteinuria. I believe the patient has now reached ESRD and would require chronic long-term dialysis treatment. When I last saw him a year ago he was on the verge of going to ESRD with all complications associated with it. Patient understood that he is probably going to need long-term chronic dialysis treatment. Patient is passing some urine, made about 650 mL of urine output for the past 24 hours. We will do dialysis today for 3 hours, using the patient's trialysis catheter, with 3 potassium bath, blood flow rate of 250 mL per minute, dialysate flow rate of 600 mL per minute, ultrafiltration 2 L as tolerated, no heparin and Retacrit with 20,000 units during dialysis intravenously. Patient is currently being monitored carefully. For planning, I request case management to arrange outpatient chronic hemodialysis treatment at [facility] [place] discharge. Patient will also need permacath placement which I talked to Dr. Schaffer about. He states that he will place it once he is recovered nearing discharge. (2) Acute renal failure superimposed on stage 5 chronic kidney disease, not on chronic dialysis Qualifiers: Acute renal failure type: unspecified Qualified Code(s): N17.9 - Acute kidney failure, unspecified; N18.5 - Chronic kidney disease, stage 5 Is this a current diagnosis for this admission?: Yes Plan: Patient's kidney function has gotten worse this admission due to his acute illness which puts him more to ESRD from CKD 5. Plan as above. (3) Metabolic acidosis Is this a current diagnosis for this admission?: Yes Plan: Significantly improved after 2 dialysis treatments. (4) Sepsis following intra-abdominal surgery Is this a current diagnosis for this admission?: Yes Plan: Blood cultures were negative. He was given a dose of Zosyn initially. Currently on ceftriaxone, and metronidazole. Vancomycin discontinued. (5) Chronic cholecystitis due to cholelithiasis with choledocholithiasis Is this a current diagnosis for this admission?: Yes Plan: Status post cholecystectomy initially laparoscopic converted to open procedure on 08/01/2020. Status post ERCP on 07/30/2020. Surgery following. (6) Hypoalbuminemia Is this a current diagnosis for this admission?: Yes Plan: This is contributing to third spacing. We will give albumin today. (7) Type 2 diabetes mellitus Qualifiers: Diabetes mellitus fci insulin use: without fci use Diabetes mellitus complication status: with kidney complications Diabetes mellitus complication detail: with chronic kidney disease Chronic kidney disease stage: stage 5, not on chronic dialysis Qualified Code(s): E11.22 - Type 2 diabetes mellitus with diabetic chronic kidney disease; N18.5 - Chronic kidney disease, stage 5 Is this a current diagnosis for this admission?: Yes Plan: Currently controlled. (8) Anemia in chronic kidney disease (CKD) Qualifiers: Chronic kidney disease stage: stage 4 (severe) Qualified Code(s): N18.4 - Chronic kidney disease, stage 4 (severe); D63.1 - Anemia in chronic kidney disease Is this a current diagnosis for this admission?: Yes Plan: Patient has chronic anemia of chronic kidney disease and has refused to take NOELLE therapy for the past 1 to 2 years. Currently his iron is also low at 41.6, TSAT19 and ferritin of 543. He was given blood transfusions last week and yesterday. I will give Retacrit during dialysis treatment. (9) Chronic kidney disease-mineral and bone disorder Is this a current diagnosis for this admission?: Yes Plan: Phosphorus is 10.5 with PTH of 318.2 and normal corrected calcium. Once the patient is taking medications orally he would need phosphorus binder and vitamin D analogs. We will hold for now. (10) Pleural effusion Is this a current diagnosis for this admission?: Yes Plan: If it compromises the breathing, therapeutic thoracentesis might need to be done. (11) Coagulopathy Is this a current diagnosis for this admission?: Yes Plan: Elevated PT and PTT. Patient receiving fresh frozen plasma and vitamin K yesterday. (12) Essential hypertension Is this a current diagnosis for this admission?: Yes Plan: Much improved and tolerating ultrafiltration without midodrine given today prior to dialysis today. (13) Acute hypoxemic respiratory failure Is this a current diagnosis for this admission?: Yes Plan: Resolved. - Time Time with patient: 15-25 minutes
[2020-08-07] MEDS: INSULIN REG, HUMAN 100 UNIT/ML 3 ML VIAL (PYX) SUBCUT SCH ×2 (17:14→23:57)
[2020-08-07] MEDS: CEFTRIAXONE 1 GM/D5W RTU 1 GM/50 ML RTUPB IV SCH (17:52)
--- NOTE | 2020-08-07 18:15 | PDOC PROGRESS REPORT ---
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 Initial evaluation in the ED showed the patient was hypertensive with leukocytosis and elevated bilirubin and transaminase including alkaline phosphatase. CT of the abdomen showed cholelithiasis with questionable choled ocholithiasis. On 07/30/2020 he underwent ERCP by Dr. 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 On 08/01/2020 he underwent laparoscopic cholecystectomy which was converted to open cholecystectomy with Kapil-en-Y hepatic jejunostomy by Dr. Schaffer. Postoperatively he was admitted in the ICU for closer monitoring. He had acute hypoxemic respiratory failure and hypotension postoperatively. He was successfully extubated though. He required 4 units of packed RBC, 1 unit FFP and 3 L of lactated Ringer's and 500 mL of normal saline. Apparently there was significant bile staining of the retroperitoneum behind the pancreas and the duodenum. He was started on metronidazole, ceftriaxone, vancomycin and fluconazole. Over the weekend the patient was monitored while in the ICU and surprisingly did well." 08/04/2020 Patient popped out of ICU overnight. Creatinine lower today. Blood cultures negative. Patient states he has not had a bowel movement yet and would like a bowel regimen started. He does have some abdominal pain from his recent surgery but other than that he has no new complaints. General surgery is following. 08/05/2020 Patient repeatedly states he feels fine and is doing well, however his bicarb is acutely dropped to 8 and his anion gap is 26. I am concerned that he may be developing an intra-abdominal infection from his recent surgery and I have ordered a CT of his chest/abdomen/pelvis to also help rule out a developing pneumonia. I discussed case with Dr. Schaffer as well as Dr. Hill. Patient did not get much dialysis as his blood pressure was quite low. Nephrology recommended giving albumin and have also started as needed midodrine to be given 1 hour prior to dialysis sessions. 08/06/2020 Patient doing quite poorly overnight on into this morning reportedly. Hemodynamically he remained stable thankfully. His hemoglobin acutely dropped and I transfused him 1 unit PRBC. He was given multiple units FFP overnight for coagulopathy and Dr. Wilfrido gates has given him multiple doses of vitamin K which seems to have brought his INR down considerably. Patient had what looked to be silvestre blood in his abdominal drain bulb. He likely has vitamin K deficiency from prolonged hospitalization and poor nutrition. I discussed the case with Dr. Schaffer who did not want the patient to get an NG tube as he is concerned about the anastomoses being damaged by this. It may be necessary to place an NG tube in order to give the patient adequate nutrition. Alternatively, we could attempt TPN though this is not a long-term solution. Creatinine lower today. Discussed case with nephrology who will have the patient dialyzed today after getting transfused. Transfer patient to [facility] [place], low threshold for ICU transfer. I am concerned that if patient does not improve in the near future he may not survive this admission. He is extremely frail and weak. 08/07/2020 Patient seems to be doing a bit better today after being transfused blood and FFP yesterday and also getting vitamin K. His INR sharply corrected after getting the vitamin K. His blood pressure and hemoglobin are higher today. He is breathing comfortably on room air. Patient has extremely poor nutrition as he has barely eaten anything over the past several days. I discussed with nursing potentially getting him PPN/TPN though nephrology does not want him to have this. Also discussed possibility of an NG tube and tube feeds. Reason For Visit: CHOLEDOCHOLITHIASIS, NEAR SYNCOPE, NAUSEA Physical Exam Vital Signs: Temp Pulse Resp BP Pulse Ox 98.6 F 107 H 19 152/77 H 92 08/07/20 10:00 08/07/20 14:00 08/07/20 03:48 08/07/20 03:48 08/07/20 03:48 Intake & Output 08/06/20 08/07/20 08/08/20 06:59 06:59 06:59 Intake Total 1466 1120 Output Total 1115 3565 2300 Balance 027 -2456 -2304 Weight 58.1 kg 49.5 kg Exam: General appearance: PRESENT: no acute distress, appears thin and weak, seems slightly better today Head exam: PRESENT: atraumatic, normocephalic Eye exam: PRESENT: conjunctiva pale Mouth exam: PRESENT: moist Respiratory exam: PRESENT: clear to auscultation deven. ABSENT: rales, rhonchi, wheezes Cardiovascular exam: PRESENT: RRR. ABSENT: diastolic murmur, rubs, systolic murmur GI/Abdominal exam: PRESENT: normal bowel sounds, soft, tenderness - Mild around surgical wounds, healing. Right abdomen drain with a clot and some serosanguineous fluid ABSENT: distended, guarding, mass, organolmegaly, rebound Rectal exam: PRESENT: deferred Neurological exam: PRESENT: alert, awake, oriented to person, oriented to place, oriented to time, oriented to situation Psychiatric exam: PRESENT: appropriate affect, normal mood Skin exam: PRESENT: dry, intact, warm Results Laboratory Results: 08/07/20 06:00 08/07/20 06:00 08/07/20 08/07/20 08/07/20 06:00 06:00 06:00 WBC 12.3 H RBC 2.76 L Hgb 8.4 L Hct 24.4 L MCV 89 MCH 30.5 MCHC 34.5 RDW 14.6 H Plt Count Cancelled 213 Sodium 138.6 Potassium 3.6 Chloride 98 Carbon Dioxide 21 L Anion Gap 20 H BUN 38 H Creatinine 3.57 H Est GFR ( Amer) 21 L Glucose 101 Calcium 7.8 L Total Bilirubin 1.2 AST 39 Alkaline Phosphatase 596 H Total Protein 4.3 L Albumin 2.6 L 07/28/20 18:30 Troponin I 0.023 Impressions: Abdomen Ultrasound 07/28/20 20:00 IMPRESSION: 1. Gallstones, gallbladder wall thickening, intrahepatic biliary dilatation and nonspecific possible inflammatory material surrounding the gallbladder. These findings are suspicious for acute cholecystitis. Gray's sign was negative but this does not exclude acute cholecystitis. 2. Common bile duct is only mildly dilated. . Question common bile duct stones. 3. Fatty liver. Low position of an atrophic right kidney in the pelvis. Abdomen MRI 07/29/20 04:06 IMPRESSION: 1.1 cm calcific density appears to localize to the common bile duct. The gallbladder is largely decompressed and mild intrahepatic biliary dilatation persists. Associated right upper quadrant inflammatory changes. Other chronic and incidental findings as detailed above. Catheter Placement 07/30/20 00:00 IMPRESSION: IMAGE(S) OBTAINED DURING PROCEDURE. Cholangiogram 08/01/20 00:00 IMPRESSION: IMAGE(S) OBTAINED DURING PROCEDURE. Fluoroscopy 08/01/20 00:00 IMPRESSION: IMAGE(S) OBTAINED DURING PROCEDURE. Chest X-Ray 08/05/20 00:00 IMPRESSION: Worsening aeration of the lung bases. Abdomen/Pelvis CT 08/06/20 00:00 IMPRESSION: 1. POST CHOLECYSTECTOMY. PERCUTANEOUS SURGICAL DRAIN PRESENT. SMALL AMOUNT OF FREE FLUID IN THE RIGHT UPPER QUADRANT. NO FINDINGS TO SUGGEST DISCRETE ABSCESS. 2. OTHER CHRONIC CHANGES INCLUDING PANCREATIC CALCIFICATIONS, PELVIC RIGHT KIDNEY, AND LEFT INGUINAL HERNIA WITH A SMALL PORTION OF THE BLADDER PROTRUDING INTO THE PROXIMAL INGUINAL CANAL. NO OTHER SIGNIFICANT OR ACUTE ABDOMINAL PROCESS. Chest CT 08/06/20 00:00 IMPRESSION: LARGE BILATERAL PLEURAL EFFUSIONS. LOWER LOBE AIRSPACE DISEASE MOST LIKELY DUE TO COMPRESSIVE ATELECTASIS ALTHOUGH PNEUMONIA CANNOT BE EXCLUDED. NO OTHER SIGNIFICANT FINDING ON NON-CONTRASTED CHEST CT. Assessment and Plan - Diagnosis (1) Chronic cholecystitis due to cholelithiasis with choledocholithiasis Is this a current diagnosis for this admission?: Yes Plan: ERCP attempted by Dr. dahl found to have gallstone eroding through duct, procedure aborted General surgery consulted and patient underwent exploratory laparotomy, s/p hepatic jejunostomy, repair of duct and stone removal Pain management Trend CMP GI following intermittently CT abdomen/pelvis to reevaluate abdomen 08/05: Did not show any acute findings other than some small amount of fluid collection, no abscess CT chest showed large bilateral pleural effusions Antibiotics continue with ceftriaxone and Flagyl, stop vancomycin as there is no evidence of MRSA infection Case discussed with general surgery (2) Acute renal failure superimposed on stage 5 chronic kidney disease, not on chronic dialysis Qualifiers: Acute renal failure type: unspecified Qualified Code(s): N17.9 - Acute kidney failure, unspecified; N18.5 - Chronic kidney disease, stage 5 Is this a current diagnosis for this admission?: Yes Plan: Per Previous Physician: "Monitor urine output. Maintain SpO2 93+%. As the patient's urine output does seem to be slowly improving, cautious use of diuretics is advised. Furosemide 20 mg IV every 8 hours x3 doses." Slow, gradual improvement in creatinine Monitor I/O Nephrology consulted: Dialysis ongoing, will need long-term dialysis catheter, general surgery following for this Trend BMP (3) Chronic anemia Is this a current diagnosis for this admission?: Yes (4) Essential hypertension Is this a current diagnosis for this admission?: Yes (5) Metabolic acidosis Is this a current diagnosis for this admission?: Yes (6) Nausea and vomiting Qualifiers: Vomiting type: unspecified Vomiting Intractability: unspecified Qualified Code(s): R11.2 - Nausea with vomiting, unspecified Is this a current diagnosis for this admission?: Yes (7) Type 2 diabetes mellitus Qualifiers: Diabetes mellitus fpc insulin use: without fpc use Diabetes mellitus complication status: with kidney complications Diabetes mellitus complication detail: with chronic kidney disease Chronic kidney disease stage: stage 5, not on chronic dialysis Qualified Code(s): E11.22 - Type 2 diabetes mellitus with diabetic chronic kidney disease; N18.5 - Chronic kidney disease, stage 5 Is this a current diagnosis for this admission?: Yes (8) Abnormal findings on imaging of biliary tract Is this a current diagnosis for this admission?: Yes (9) GAURAV (acute kidney injury) Is this a current diagnosis for this admission?: Yes (10) Choledocholithiasis Is this a current diagnosis for this admission?: Yes (11) Vitamin K deficiency coagulation disorder Is this a current diagnosis for this admission?: Yes Plan: Given vitamin K Hematology consulted FFP given INR with good response to above interventions Trend INR every 2 days - Plan Summary Summary: TINA YUAN is a 70 year old male with HTN, HLD, DM2, CKD who presented on 07/28/2020 with fatigue, malaise, anorexia, nausea/vomiting/diarrhea x2 days and near-syncope resulting in fall on the day of admission. In the ED, he was found to be hypotensive, have leukocytosis, elevated bilirubin of 4.8 and elevation of transaminases and alkaline phosphatase. CT abdomen pelvis showed cholelithiasis and questionable choledocholithiasis. MRCP revealed a 1 cm stone in the common bile duct causing intra-hepatic duct dilatation. He was initially scheduled to be transferred to [place] to undergo ERCP there and has been waiting in the emergency room for transfer; however, the transfer never occurred and Dr. Dahl has now agreed to perform the ERCP tonight here at [facility] instead. The hospitalist service was therefore contacted for admission. Patient will be started on IVF and antibiotics with cefazolin/metronidazole. He remains NPO for ERCP tonight. GI consulted. General surgery consulted for eventual lap pete. GAURAV on CKD due to dehydration and N/V, will consult nephrology. HTN uncontrolled, restart home medications. Repeat CMP/CBC in AM. 07/31/2020: Patient with failed ERCP 07/30/2020; operating report was reviewed in detail. 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 Pt scheduled for laproscopic cholecystectomy with choliogram tomorrow. Dr. Barragan, nephrology, was consulted. Pt was found to be uremic by Dr. Barragan, requesting urgen placement of temporary femal dialysis catheter for short term hemodialysis treatment. Hurst catheter was placed to monitor strick I&Os. Patient with ~300cc urine approximately 30 minutes after catheter placement, as noted on exam. Dialysis catheter was not placed today, pt unable to receive dialysis until Monday. He appears to be making urine. He is receiving IV fluids at this time. Will monitor closely. Repeat CMP/CBC in AM prior to procedure. - Time Time Spent with patient: 35 or more minutes Medications reviewed and adjusted accordingly: Yes Anticipated Discharge Disposition: Longterm Facility Anticipated Discharge Timeframe: within 72 hours - Inpatient Certification Based on my medical assessment, after consideration of the patient's comorbidi ties, presenting symptoms, or acuity I expect that the services needed warrant INPATIENT care.: Yes I certify that my determination is in accordance with my understanding of Lisa mckeon's requirements for reasonable and necessary INPATIENT services [42 CFR 412.3e].: Yes Medical Necessity: Significant Comorbidiites Make Outpatient Treatment Too Risky, Need Close Monitoring Due to Risk of Patient Decompensation, Need for IV Antibiotics, Risk of Complication if Not Cared For in Hospital, Risk of Diagnosis Which Will Require Inpatient Eval/Care/Monitoring
[2020-08-08] MEDS: DIPHENHYDRAMINE HCL 25 MG/10 ML UDC PO PRN (01:48)
[2020-08-08] MEDS: METOCLOPRAMIDE HCL INJ/PF 10 MG/2 ML SDV IV SCH ×4 (02:30→21:26)
[2020-08-08] MEDS: METOPROLOL TARTRATE PF/INJ 5 MG/5 ML SDV IV SCH (05:21)
[2020-08-08] MEDS: HEPARIN SOD (PORCINE) 5,000 UNIT/ML 1 ML VIAL SUBCUT SCH ×3 (05:23→21:26)
[2020-08-08] MEDS: SODIUM BICARBONATE 650 MG TABLET PO SCH (05:23)
[2020-08-08 06:19] LABS: HEMATOCRIT 26.5 % (37.9-51.0); MEAN CORPUSCULAR HEMOGLOBIN 30.3 pg (27.0-33.4); MEAN CORPUSCULAR HGB CONC 34.2 g/dL (32.0-36.0); MEAN CORPUSCULAR VOLUME 89 fl (80-97); PLATELET COUNT 201 10^3/uL (150-450); RED BLOOD COUNT 2.98 10^6/uL (4.35-5.55); RED CELL DISTRIBUTION WIDTH 14.8 % (11.5-14.0); WHITE BLOOD COUNT 11.6 10^3/uL (4.0-10.5)
[2020-08-08] MEDS: INSULIN REG, HUMAN 100 UNIT/ML 3 ML VIAL (PYX) SUBCUT SCH ×3 (06:31→21:26)
[2020-08-08 06:35] LABS: ALBUMIN 2.8 g/dL (3.5-5.0); ALKALINE PHOSPHATASE 577 U/L (38-126); ANION GAP 14 (5-19); ASPARTATE AMINO TRANSFERASE 37 U/L (17-59); BILIRUBIN,TOTAL 1.2 mg/dL (0.2-1.3); BLOOD UREA NITROGEN 26 mg/dL (7-20); CALCIUM 8.1 mg/dL (8.4-10.2); CARBON DIOXIDE 26 mmol/L (22-30); CHLORIDE 99 mmol/L (98-107); GLUCOSE 169 mg/dL (75-110); PHOSPHORUS 4.3 mg/dL (2.5-4.5); POTASSIUM 3.5 mmol/L (3.6-5.0)
[2020-08-08 06:42] LABS: PREALBUMIN 11.8 mg/dL (17.6-36.0)
[2020-08-08 06:46] LABS: INTERNATIONAL RATION (INR) 1.08; PROTHROMBIN TIME 14.3 SEC (11.4-15.4)
[2020-08-08 07:03] LABS: ABSOLUTE LYMPHOCYTES# (MANUAL) 2.3 10^3/uL (0.5-4.7); ABSOLUTE MONOCYTES # (MANUAL) 0.3 10^3/uL (0.1-1.4); BASOPHILS % (MANUAL) 0 % (0-2); EOSINOPHILS % (MANUAL) 0 % (0-6); LYMPHOCYTES % (MANUAL) 20 % (13-45); MONOCYTES % (MANUAL) 3 % (3-13); NUCLEATED RED BLOOD CELLS 4 /100 WBC (0); SEGMENTED NEUTROPHILS % (MAN) 77 % (42-78); TOTAL CELLS COUNTED 100
[2020-08-08 07:07] LABS: ANISOCYTOSIS SLIGHT; OVALOCYTES 1+; POIKILOCYTOSIS SLIGHT; TOXIC GRANULATION SLIGHT
[2020-08-08 07:08] LABS: PLATELET COMMENT ADEQUATE; SCHISTOCYTES SLIGHT; TEAR DROP CELLS SLIGHT
[2020-08-08] MEDS ORDERED: CARVEDILOL 6.25 MG TABLET PO ONE (07:45)
--- NOTE | 2020-08-08 08:04 | PDOC PROGRESS REPORT ---
Subjective Progress Note for:: 08/08/20 Subjective:: feels better todoay having bm's Reason For Visit: CHOLEDOCHOLITHIASIS, NEAR SYNCOPE, NAUSEA Physical Exam Vital Signs: Temp Pulse Resp BP Pulse Ox 98.5 F 100 18 172/82 H 91 L 08/08/20 03:51 08/08/20 03:51 08/08/20 03:51 08/08/20 03:51 08/08/20 03:51 Intake & Output 08/07/20 08/08/20 08/09/20 06:59 06:59 06:59 Intake Total 1120 386 Output Total 3565 4960 Balance -2779 -7118 Weight 49.5 kg 47.3 kg General appearance: PRESENT: no acute distress Head exam: PRESENT: normocephalic Eye exam: PRESENT: EOMI Ear exam: PRESENT: normal external ear exam Mouth exam: PRESENT: moist Teeth exam: PRESENT: poor dentation Neck exam: PRESENT: full ROM Respiratory exam: PRESENT: clear to auscultation deven Cardiovascular exam: PRESENT: RRR Pulses: PRESENT: normal radial pulses, normal femoral pulses Vascular exam: PRESENT: normal capillary refill Breast: PRESENT: Normal GI/Abdominal exam: PRESENT: soft, other - AUBREY sanguinous no bile noted Rectal exam: PRESENT: deferred Gentrourinary exam: PRESENT: indwelling catheter Extremities exam: PRESENT: +1 edema Musculoskeletal exam: PRESENT: full ROM Neurological exam: PRESENT: alert, awake, oriented to person Psychiatric exam: PRESENT: appropriate affect Skin exam: PRESENT: dry Results Laboratory Results: 08/08/20 05:55 08/08/20 05:55 08/08/20 08/08/20 05:55 05:55 WBC 11.6 H RBC 2.98 L Hgb 9.0 L Hct 26.5 L MCV 89 MCH 30.3 MCHC 34.2 RDW 14.8 H Plt Count 201 Seg Neutrophils % Not Reportable Sodium 139.2 Potassium 3.5 L Chloride 99 Carbon Dioxide 26 Anion Gap 14 BUN 26 H Creatinine 3.02 H Est GFR ( Amer) 25 L Glucose 169 H Calcium 8.1 L Phosphorus 4.3 Magnesium 2.0 Total Bilirubin 1.2 AST 37 Alkaline Phosphatase 577 H Total Protein 5.0 L Albumin 2.8 L Prealbumin 11.8 L 07/28/20 18:30 Troponin I 0.023 Impressions: Abdomen Ultrasound 07/28/20 20:00 IMPRESSION: 1. Gallstones, gallbladder wall thickening, intrahepatic biliary dilatation and nonspecific possible inflammatory material surrounding the gallbladder. These findings are suspicious for acute cholecystitis. Gray's sign was negative but this does not exclude acute cholecystitis. 2. Common bile duct is only mildly dilated. . Question common bile duct stones. 3. Fatty liver. Low position of an atrophic right kidney in the pelvis. Abdomen MRI 07/29/20 04:06 IMPRESSION: 1.1 cm calcific density appears to localize to the common bile duct. The gallbladder is largely decompressed and mild intrahepatic biliary dilatation persists. Associated right upper quadrant inflammatory changes. Other chronic and incidental findings as detailed above. Catheter Placement 07/30/20 00:00 IMPRESSION: IMAGE(S) OBTAINED DURING PROCEDURE. Cholangiogram 08/01/20 00:00 IMPRESSION: IMAGE(S) OBTAINED DURING PROCEDURE. Fluoroscopy 08/01/20 00:00 IMPRESSION: IMAGE(S) OBTAINED DURING PROCEDURE. Chest X-Ray 08/05/20 00:00 IMPRESSION: Worsening aeration of the lung bases. Abdomen/Pelvis CT 08/06/20 00:00 IMPRESSION: 1. POST CHOLECYSTECTOMY. PERCUTANEOUS SURGICAL DRAIN PRESENT. SMALL AMOUNT OF FREE FLUID IN THE RIGHT UPPER QUADRANT. NO FINDINGS TO SUGGEST DISCRETE ABSCESS. 2. OTHER CHRONIC CHANGES INCLUDING PANCREATIC CALCIFICATIONS, PELVIC RIGHT KIDNEY, AND LEFT INGUINAL HERNIA WITH A SMALL PORTION OF THE BLADDER PROTRUDING INTO THE PROXIMAL INGUINAL CANAL. NO OTHER SIGNIFICANT OR ACUTE ABDOMINAL PROCESS. Chest CT 08/06/20 00:00 IMPRESSION: LARGE BILATERAL PLEURAL EFFUSIONS. LOWER LOBE AIRSPACE DISEASE MOST LIKELY DUE TO COMPRESSIVE ATELECTASIS ALTHOUGH PNEUMONIA CANNOT BE EXCLUDED. NO OTHER SIGNIFICANT FINDING ON NON-CONTRASTED CHEST CT. Assessment & Plan - Time Anticipated Discharge Disposition: Home, Self Care Anticipated Discharge Timeframe: unk - Plan Summary Plan Summary: Patient appears much improved today hemoglobin and hematocrit are now stable after his INR has been corrected. He is now starting to have bowel function with bowel movements he is on a full liquid diet. A Vladislav-Roy drain is draining some small amounts of blood but there is no obvious bile in his Vladislav-Roy drain at this time. Liver function studies are correcting total bilirubin is normal. Recommendations we will continue with 3 times a week dialysis however he does have some return of renal function at this point. We will defer that decision for ongoing dialysis to clothing man. We will leave him on a full liquid diet for now increase activity physical therapy to start working with him.
[2020-08-08] MEDS: DOCUSATE SODIUM 100 MG CAPSULE PO SCH (10:07)
[2020-08-08] MEDS ORDERED: CARVEDILOL 6.25 MG TABLET ONE (10:10)
[2020-08-08] MEDS: PHYTONADIONE INJ 10 MG/1 ML AMPULE SUBCUT SCH (10:15)
--- NOTE | 2020-08-08 11:16 | PDOC PROGRESS REPORT ---
Subjective Progress Note for:: 08/08/20 Subjective:: Patient is very sleepy but states that he has been feeling better. He tolerated dialysis yesterday. He denies pain today. No active bleeding. Nurses report no new concerns. Reason For Visit: CHOLEDOCHOLITHIASIS, NEAR SYNCOPE, NAUSEA Physical Exam Vital Signs: Temp Pulse Resp BP Pulse Ox 98.5 F 100 18 172/82 H 91 L 08/08/20 03:51 08/08/20 07:00 08/08/20 03:51 08/08/20 03:51 08/08/20 03:51 Intake & Output 08/07/20 08/08/20 08/09/20 06:59 06:59 06:59 Intake Total 1120 386 Output Total 3565 2700 Balance -2445 -2314 Weight 49.5 kg 47.3 kg General appearance: PRESENT: no acute distress Head exam: PRESENT: normocephalic Respiratory exam: PRESENT: unlabored Neurological exam: PRESENT: awake Psychiatric exam: PRESENT: appropriate affect Skin exam: PRESENT: normal color Results Laboratory Results: 08/08/20 05:55 08/08/20 05:55 08/08/20 08/08/20 05:55 05:55 WBC 11.6 H RBC 2.98 L Hgb 9.0 L Hct 26.5 L MCV 89 MCH 30.3 MCHC 34.2 RDW 14.8 H Plt Count 201 Seg Neutrophils % Not Reportable Sodium 139.2 Potassium 3.5 L Chloride 99 Carbon Dioxide 26 Anion Gap 14 BUN 26 H Creatinine 3.02 H Est GFR ( Amer) 25 L Glucose 169 H Calcium 8.1 L Phosphorus 4.3 Magnesium 2.0 Total Bilirubin 1.2 AST 37 Alkaline Phosphatase 577 H Total Protein 5.0 L Albumin 2.8 L Prealbumin 11.8 L 07/28/20 18:30 Troponin I 0.023 Impressions: Abdomen Ultrasound 07/28/20 20:00 IMPRESSION: 1. Gallstones, gallbladder wall thickening, intrahepatic biliary dilatation and nonspecific possible inflammatory material surrounding the gallbladder. These findings are suspicious for acute cholecystitis. Gray's sign was negative but this does not exclude acute cholecystitis. 2. Common bile duct is only mildly dilated. . Question common bile duct stones. 3. Fatty liver. Low position of an atrophic right kidney in the pelvis. Abdomen MRI 07/29/20 04:06 IMPRESSION: 1.1 cm calcific density appears to localize to the common bile osmar t. The gallbladder is largely decompressed and mild intrahepatic biliary dilatation persists. Associated right upper quadrant inflammatory changes. Other chronic and incidental findings as detailed above. Catheter Placement 07/30/20 00:00 IMPRESSION: IMAGE(S) OBTAINED DURING PROCEDURE. Cholangiogram 08/01/20 00:00 IMPRESSION: IMAGE(S) OBTAINED DURING PROCEDURE. Fluoroscopy 08/01/20 00:00 IMPRESSION: IMAGE(S) OBTAINED DURING PROCEDURE. Chest X-Ray 08/05/20 00:00 IMPRESSION: Worsening aeration of the lung bases. Abdomen/Pelvis CT 08/06/20 00:00 IMPRESSION: 1. POST CHOLECYSTECTOMY. PERCUTANEOUS SURGICAL DRAIN PRESENT. SMALL AMOUNT OF FREE FLUID IN THE RIGHT UPPER QUADRANT. NO FINDINGS TO SUGGEST DISCRETE ABSCESS. 2. OTHER CHRONIC CHANGES INCLUDING PANCREATIC CALCIFICATIONS, PELVIC RIGHT KIDNEY, AND LEFT INGUINAL HERNIA WITH A SMALL PORTION OF THE BLADDER PROTRUDING INTO THE PROXIMAL INGUINAL CANAL. NO OTHER SIGNIFICANT OR ACUTE ABDOMINAL PROCESS. Chest CT 08/06/20 00:00 IMPRESSION: LARGE BILATERAL PLEURAL EFFUSIONS. LOWER LOBE AIRSPACE DISEASE MOST LIKELY DUE TO COMPRESSIVE ATELECTASIS ALTHOUGH PNEUMONIA CANNOT BE EXCLUDED. NO OTHER SIGNIFICANT FINDING ON NON-CONTRASTED CHEST CT. Assessment & Plan - Diagnosis (1) Acute renal failure superimposed on stage 5 chronic kidney disease, not on chronic dialysis Qualifiers: Acute renal failure type: unspecified Qualified Code(s): N17.9 - Acute kidney failure, unspecified; N18.5 - Chronic kidney disease, stage 5 Is this a current diagnosis for this admission?: Yes (2) Choledocholithiasis Is this a current diagnosis for this admission?: Yes (3) Chronic anemia Is this a current diagnosis for this admission?: Yes Plan: Much improved. Continue EPO injections per Dr. Hill. (4) Vitamin K deficiency coagulation disorder Is this a current diagnosis for this admission?: Yes Plan: Now resolved. - Time Time Spent with patient: Less than 15 minutes - Plan Summary Plan Summary: I will sign off. Please reconsult if needed or call with any concerns.
[2020-08-08] MEDS ORDERED: METOPROLOL TARTRATE PF/INJ 5 MG/5 ML SDV IV SCH (12:00)
--- NOTE | 2020-08-08 17:24 | PDOC PROGRESS REPORT ---
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 Initial evaluation in the ED showed the patient was hypertensive with leukocytosis and elevated bilirubin and transaminase including alkaline phosphatase. CT of the abdomen showed cholelithiasis with questionable choled ocholithiasis. On 07/30/2020 he underwent ERCP by Dr. 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 On 08/01/2020 he underwent laparoscopic cholecystectomy which was converted to open cholecystectomy with Kapil-en-Y hepatic jejunostomy by Dr. Schaffer. Postoperatively he was admitted in the ICU for closer monitoring. He had acute hypoxemic respiratory failure and hypotension postoperatively. He was successfully extubated though. He required 4 units of packed RBC, 1 unit FFP and 3 L of lactated Ringer's and 500 mL of normal saline. Apparently there was significant bile staining of the retroperitoneum behind the pancreas and the duodenum. He was started on metronidazole, ceftriaxone, vancomycin and fluconazole. Over the weekend the patient was monitored while in the ICU and surprisingly did well." 08/04/2020 Patient popped out of ICU overnight. Creatinine lower today. Blood cultures negative. Patient states he has not had a bowel movement yet and would like a bowel regimen started. He does have some abdominal pain from his recent surgery but other than that he has no new complaints. General surgery is following. 08/05/2020 Patient repeatedly states he feels fine and is doing well, however his bicarb is acutely dropped to 8 and his anion gap is 26. I am concerned that he may be developing an intra-abdominal infection from his recent surgery and I have ordered a CT of his chest/abdomen/pelvis to also help rule out a developing pneumonia. I discussed case with Dr. Schaffer as well as Dr. Hill. Patient did not get much dialysis as his blood pressure was quite low. Nephrology recommended giving albumin and have also started as needed midodrine to be given 1 hour prior to dialysis sessions. 08/06/2020 Patient doing quite poorly overnight on into this morning reportedly. Hemodynamically he remained stable thankfully. His hemoglobin acutely dropped and I transfused him 1 unit PRBC. He was given multiple units FFP overnight for coagulopathy and Dr. Wilfrido gates has given him multiple doses of vitamin K which seems to have brought his INR down considerably. Patient had what looked to be silvestre blood in his abdominal drain bulb. He likely has vitamin K deficiency from prolonged hospitalization and poor nutrition. I discussed the case with Dr. Schaffer who did not want the patient to get an NG tube as he is concerned about the anastomoses being damaged by this. It may be necessary to place an NG tube in order to give the patient adequate nutrition. Alternatively, we could attempt TPN though this is not a long-term solution. Creatinine lower today. Discussed case with nephrology who will have the patient dialyzed today after getting transfused. Transfer patient to [facility], low threshold for ICU transfer. I am concerned that if patient does not improve in the near future he may not survive this admission. He is extremely frail and weak. 08/07/2020 Patient seems to be doing a bit better today after being transfused blood and FFP yesterday and also getting vitamin K. His INR sharply corrected after getting the vitamin K. His blood pressure and hemoglobin are higher today. He is breathing comfortably on room air. Patient has extremely poor nutrition as he has barely eaten anything over the past several days. I discussed with nursing potentially getting him PPN/TPN though nephrology does not want him to have this. Also discussed possibility of an NG tube and tube feeds. 08/08/2020 Patient still continues to improve today. He has a bit of more color in his face today. He is having multiple bowel movements now and his INR has been fully corrected down to 1. Creatinine is notably lower. General surgery following. Hemoglobin rising Reason For Visit: CHOLEDOCHOLITHIASIS, NEAR SYNCOPE, NAUSEA Physical Exam Vital Signs: Temp Pulse Resp BP Pulse Ox 98.6 F 98 16 143/94 H 96 08/08/20 11:50 08/08/20 11:50 08/08/20 11:50 08/08/20 11:50 08/08/20 11:50 Intake & Output 08/07/20 08/08/20 08/09/20 06:59 06:59 06:59 Intake Total 1120 386 Output Total 3565 4530 Balance -2445 -2928 Weight 49.5 kg 47.3 kg 47.3 kg Exam: General appearance: PRESENT: no acute distress, appears thin and weak, better today Head exam: PRESENT: atraumatic, normocephalic Eye exam: PRESENT: conjunctiva pale Mouth exam: PRESENT: moist Respiratory exam: PRESENT: clear to auscultation deven. ABSENT: rales, rhonchi, wheezes Cardiovascular exam: PRESENT: RRR. ABSENT: diastolic murmur, rubs, systolic murmur GI/Abdominal exam: PRESENT: normal bowel sounds, soft, tenderness - Mild around surgical wounds, healing. Right abdomen drain with serosanguineous fluid ABSENT: distended, guarding, mass, organolmegaly, rebound Rectal exam: PRESENT: deferred Neurological exam: PRESENT: alert, awake, oriented to person, oriented to place, oriented to time, oriented to situation Psychiatric exam: PRESENT: appropriate affect, normal mood Skin exam: PRESENT: dry, intact, warm Results Laboratory Results: 08/08/20 05:55 08/08/20 05:55 08/08/20 08/08/20 05:55 05:55 WBC 11.6 H RBC 2.98 L Hgb 9.0 L Hct 26.5 L MCV 89 MCH 30.3 MCHC 34.2 RDW 14.8 H Plt Count 201 Seg Neutrophils % Not Reportable Sodium 139.2 Potassium 3.5 L Chloride 99 Carbon Dioxide 26 Anion Gap 14 BUN 26 H Creatinine 3.02 H Est GFR ( Amer) 25 L Glucose 169 H Calcium 8.1 L Phosphorus 4.3 Magnesium 2.0 Total Bilirubin 1.2 AST 37 Alkaline Phosphatase 577 H Total Protein 5.0 L Albumin 2.8 L Prealbumin 11.8 L 07/28/20 18:30 Troponin I 0.023 Impressions: Abdomen Ultrasound 07/28/20 20:00 IMPRESSION: 1. Gallstones, gallbladder wall thickening, intrahepatic biliary dilatation and nonspecific possible inflammatory material surrounding the gallbladder. These findings are suspicious for acute cholecystitis. Gray's sign was negative but this does not exclude acute cholecystitis. 2. Common bile duct is only mildly dilated. . Question common bile duct stones. 3. Fatty liver. Low position of an atrophic right kidney in the pelvis. Abdomen MRI 07/29/20 04:06 IMPRESSION: 1.1 cm calcific density appears to localize to the common bile du ct. The gallbladder is largely decompressed and mild intrahepatic biliary dilatation persists. Associated right upper quadrant inflammatory changes. Other chronic and incidental findings as detailed above. Catheter Placement 07/30/20 00:00 IMPRESSION: IMAGE(S) OBTAINED DURING PROCEDURE. Cholangiogram 08/01/20 00:00 IMPRESSION: IMAGE(S) OBTAINED DURING PROCEDURE. Fluoroscopy 08/01/20 00:00 IMPRESSION: IMAGE(S) OBTAINED DURING PROCEDURE. Chest X-Ray 08/05/20 00: IMPRESSION: Worsening aeration of the lung bases. Abdomen/Pelvis CT 08/06/20 00:00 IMPRESSION: 1. POST CHOLECYSTECTOMY. PERCUTANEOUS SURGICAL DRAIN PRESENT. SMALL AMOUNT OF FREE FLUID IN THE RIGHT UPPER QUADRANT. NO FINDINGS TO SUGGEST DISCRETE ABSCESS. 2. OTHER CHRONIC CHANGES INCLUDING PANCREATIC CALCIFICATIONS, PELVIC RIGHT KIDNEY, AND LEFT INGUINAL HERNIA WITH A SMALL PORTION OF THE BLADDER PROTRUDING INTO THE PROXIMAL INGUINAL CANAL. NO OTHER SIGNIFICANT OR ACUTE ABDOMINAL PROCESS. Chest CT 08/06/20 00:00 IMPRESSION: LARGE BILATERAL PLEURAL EFFUSIONS. LOWER LOBE AIRSPACE DISEASE MOST LIKELY DUE TO COMPRESSIVE ATELECTASIS ALTHOUGH PNEUMONIA CANNOT BE EXCLUDED. NO OTHER SIGNIFICANT FINDING ON NON-CONTRASTED CHEST CT. Assessment and Plan - Diagnosis (1) Chronic cholecystitis due to cholelithiasis with choledocholithiasis Is this a current diagnosis for this admission?: Yes Plan: ERCP attempted by Dr. dahl found to have gallstone eroding through duct, procedure aborted General surgery consulted and patient underwent exploratory laparotomy, s/p hepatic jejunostomy, repair of duct and stone removal Pain management Trend CMP GI following peripherally CT abdomen/pelvis to reevaluate abdomen 08/05: Did not show any acute findings other than some small amount of fluid collection, no abscess CT chest showed large bilateral pleural effusions Antibiotics continue with ceftriaxone and Flagyl, stopped vancomycin as there is no evidence of MRSA infection Case discussed with general surgery Bilirubin improved Bowels moving (2) Acute renal failure superimposed on stage 5 chronic kidney disease, not on chronic dialysis Qualifiers: Acute renal failure type: unspecified Qualified Code(s): N17.9 - Acute kidney failure, unspecified; N18.5 - Chronic kidney disease, stage 5 Is this a current diagnosis for this admission?: Yes Plan: Per Previous Physician: "Monitor urine output. Maintain SpO2 93+%. As the patient's urine output does seem to be slowly improving, cautious use of diuretics is advised. Furosemide 20 mg IV every 8 hours x3 doses." Slow, gradual improvement in creatinine continues Monitor I/O Nephrology consulted: Dialysis ongoing, will need long-term dialysis catheter, general surgery following for this Trend BMP (3) Chronic anemia Is this a current diagnosis for this admission?: Yes Plan: Trend CBC Likely due to surgery and chronic renal failure Acute on chronic due to blood loss anemia from coagulopathy Transfused 1 unit PRBC on 08/06 Given multiple units FFP on 08/06 Improving hemoglobin (4) Essential hypertension Is this a current diagnosis for this admission?: Yes (5) Metabolic acidosis Is this a current diagnosis for this admission?: Yes (6) Nausea and vomiting Qualifiers: Vomiting type: unspecified Vomiting Intractability: unspecified Qualified Code(s): R11.2 - Nausea with vomiting, unspecified Is this a current diagnosis for this admission?: Yes Plan: Resolved (7) Type 2 diabetes mellitus Qualifiers: Diabetes mellitus detention insulin use: without detention use Diabetes mellitus complication status: with kidney complications Diabetes mellitus complication detail: with chronic kidney disease Chronic kidney disease stage: stage 5, not on chronic dialysis Qualified Code(s): E11.22 - Type 2 diabetes mellitus with diabetic chronic kidney disease; N18.5 - Chronic kidney disease, stage 5 Is this a current diagnosis for this admission?: Yes (8) Abnormal findings on imaging of biliary tract Is this a current diagnosis for this admission?: Yes (9) GAURAV (acute kidney injury) Is this a current diagnosis for this admission?: Yes (10) Choledocholithiasis Is this a current diagnosis for this admission?: Yes (11) Vitamin K deficiency coagulation disorder Is this a current diagnosis for this admission?: Yes - Plan Summary Summary: TINA YUAN is a 70 year old male with HTN, HLD, DM2, CKD who presented on 07/28/2020 with fatigue, malaise, anorexia, nausea/vomiting/diarrhea x2 days and near-syncope resulting in fall on the day of admission. In the ED, he was found to be hypotensive, have leukocytosis, elevated bilirubin of 4.8 and elevation of transaminases and alkaline phosphatase. CT abdomen pelvis showed cholelithiasis and questionable choledocholithiasis. MRCP revealed a 1 cm stone in the common bile duct causing intra-hepatic duct dilatation. He was initially scheduled to be transferred to [place] to undergo ERCP there and has been waiting in the emergency room for transfer; however, the transfer never occurred and Dr. Dahl has now agreed to perform the ERCP tonight here at [facility] instead. The hospitalist service was therefore contacted for admission. Patient will be started on IVF and antibiotics with cefazolin/metronidazole. He remains NPO for ERCP tonight. GI consulted. General surgery consulted for eventual lap pete. GAURAV on CKD due to dehydration and N/V, will consult nephrology. HTN uncontrolled, restart home medications. Repeat CMP/CBC in AM. 07/31/2020: Patient with failed ERCP 07/30/2020; operating report was reviewed in detail. 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 Pt scheduled for laproscopic cholecystectomy with choliogram tomorrow. Dr. Barragan, nephrology, was consulted. Pt was found to be uremic by Dr. Barragan, requesting urgen placement of temporary femal dialysis catheter for short term hemodialysis treatment. Hurst catheter was placed to monitor strick I&Os. Patient with ~300cc urine approximately 30 minutes after catheter placement, as noted on exam. Dialysis catheter was not placed today, pt unable to receive dialysis until Monday. He appears to be making urine. He is receiving IV fluids at this time. Will monitor closely. Repeat CMP/CBC in AM prior to procedure. - Time Time Spent with patient: 25-34 minutes Medications reviewed and adjusted accordingly: Yes Anticipated Discharge Disposition: [facility] Anticipated Discharge Timeframe: within 72 hours - Inpatient Certification Based on my medical assessment, after consideration of the patient's comorbidities, presenting symptoms, or acuity I expect that the services needed warrant INPATIENT care.: Yes I certify that my determination is in accordance with my understanding of Medicare's requirements for reasonable and necessary INPATIENT services [42 CFR 412.3e].: Yes Medical Necessity: Significant Comorbidiites Make Outpatient Treatment Too Risky, Need Close Monitoring Due to Risk of Patient Decompensation, Need for IV Antibiotics, Risk of Complication if Not Cared For in Hospital, Risk of Diagnosis Which Will Require Inpatient Eval/Care/Monitoring
[2020-08-08] MEDS: CARVEDILOL 6.25 MG TABLET PO SCH (21:26)
[2020-08-09] MEDS: INSULIN REG, HUMAN 100 UNIT/ML 3 ML VIAL (PYX) SUBCUT SCH ×5 (00:58→22:10)
[2020-08-09] MEDS: METOCLOPRAMIDE HCL INJ/PF 10 MG/2 ML SDV IV SCH ×4 (02:37→22:00)
[2020-08-09] MEDS: HEPARIN SOD (PORCINE) 5,000 UNIT/ML 1 ML VIAL SUBCUT SCH ×3 (06:28→22:06)
[2020-08-09] MEDS: PHYTONADIONE INJ 10 MG/1 ML AMPULE SUBCUT SCH (10:18)
[2020-08-09] MEDS: CARVEDILOL 6.25 MG TABLET PO SCH ×2 (10:18→22:05)
--- NOTE | 2020-08-09 11:46 | PDOC PROGRESS REPORT ---
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 Initial evaluation in the ED showed the patient was hypertensive with leukocytosis and elevated bilirubin and transaminase including alkaline phosphatase. CT of the abdomen showed cholelithiasis with questionable choled ocholithiasis. On 07/30/2020 he underwent ERCP by Dr. 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 On 08/01/2020 he underwent laparoscopic cholecystectomy which was converted to open cholecystectomy with Kapil-en-Y hepatic jejunostomy by Dr. Schaffer. Postoperatively he was admitted in the ICU for closer monitoring. He had acute hypoxemic respiratory failure and hypotension postoperatively. He was successfully extubated though. He required 4 units of packed RBC, 1 unit FFP and 3 L of lactated Ringer's and 500 mL of normal saline. Apparently there was significant bile staining of the retroperitoneum behind the pancreas and the duodenum. He was started on metronidazole, ceftriaxone, vancomycin and fluconazole. Over the weekend the patient was monitored while in the ICU and surprisingly did well." 08/04/2020 Patient popped out of ICU overnight. Creatinine lower today. Blood cultures negative. Patient states he has not had a bowel movement yet and would like a bowel regimen started. He does have some abdominal pain from his recent surgery but other than that he has no new complaints. General surgery is following. 08/05/2020 Patient repeatedly states he feels fine and is doing well, however his bicarb is acutely dropped to 8 and his anion gap is 26. I am concerned that he may be developing an intra-abdominal infection from his recent surgery and I have ordered a CT of his chest/abdomen/pelvis to also help rule out a developing pneumonia. I discussed case with Dr. Schaffer as well as Dr. Hill. Patient did not get much dialysis as his blood pressure was quite low. Nephrology recommended giving albumin and have also started as needed midodrine to be given 1 hour prior to dialysis sessions. 08/06/2020 Patient doing quite poorly overnight on into this morning reportedly. Hemodynamically he remained stable thankfully. His hemoglobin acutely dropped and I transfused him 1 unit PRBC. He was given multiple units FFP overnight for coagulopathy and Dr. Wilfrido gates has given him multiple doses of vitamin K which seems to have brought his INR down considerably. Patient had what looked to be silvestre blood in his abdominal drain bulb. He likely has vitamin K deficiency from prolonged hospitalization and poor nutrition. I discussed the case with Dr. Schaffer who did not want the patient to get an NG tube as he is concerned about the anastomoses being damaged by this. It may be necessary to place an NG tube in order to give the patient adequate nutrition. Alternatively, we could attempt TPN though this is not a long-term solution. Creatinine lower today. Discussed case with nephrology who will have the patient dialyzed today after getting transfused. Transfer patient to [facility], low threshold for ICU transfer. I am concerned that if patient does not improve in the near future he may not survive this admission. He is extremely frail and weak. 08/07/2020 Patient seems to be doing a bit better today after being transfused blood and FFP yesterday and also getting vitamin K. His INR sharply corrected after getting the vitamin K. His blood pressure and hemoglobin are higher today. He is breathing comfortably on room air. Patient has extremely poor nutrition as he has barely eaten anything over the past several days. I discussed with nursing potentially getting him PPN/TPN though nephrology does not want him to have this. Also discussed possibility of an NG tube and tube feeds. 08/08/2020 Patient still continues to improve today. He has a bit of more color in his face today. He is having multiple bowel movements now and his INR has been fully corrected down to 1. Creatinine is notably lower. General surgery following. Hemoglobin rising 08/09/2020 Patient is having some coarse coughing and gurgling when he speaks. Discussed with nursing to check on his swallowing ability although he has been reportedly eating very well over the past few days. Blood pressure is mildly elevated. Reason For Visit: CHOLEDOCHOLITHIASIS, NEAR SYNCOPE, NAUSEA Physical Exam Vital Signs: Temp Pulse Resp BP Pulse Ox 97.8 F 81 11 L 167/76 H 96 08/09/20 08:10 08/09/20 08:10 08/09/20 08:10 08/09/20 08:10 08/09/20 08:10 Intake & Output 08/08/20 08/09/20 08/10/20 06:59 06:59 06:59 Intake Total 386 237 Output Total 2700 665 Balance -1194 -416 Weight 47.3 kg 58.2 kg Exam: General appearance: PRESENT: no acute distress, appears thin and weak, a bit more coughing and gurgling than yesterday Head exam: PRESENT: atraumatic, normocephalic Eye exam: PRESENT: conjunctiva pale Mouth exam: PRESENT: moist Respiratory exam: PRESENT: clear to auscultation deven. ABSENT: rales, rhonchi, wheezes Cardiovascular exam: PRESENT: RRR. ABSENT: diastolic murmur, rubs, systolic murmur GI/Abdominal exam: PRESENT: normal bowel sounds, soft, tenderness - Mild around surgical wounds, healing. Right abdomen drain with serosanguineous fluid ABSENT: distended, guarding, mass, organolmegaly, rebound Rectal exam: PRESENT: deferred Neurological exam: PRESENT: alert, awake, oriented to person, oriented to place, oriented to time, oriented to situation Psychiatric exam: PRESENT: appropriate affect, normal mood Skin exam: PRESENT: dry, intact, warm Results Laboratory Results: 08/08/20 05:55 08/08/20 05:55 07/28/20 18:30 Troponin I 0.023 Impressions: Abdomen Ultrasound 07/28/20 20:00 IMPRESSION: 1. Gallstones, gallbladder wall thickening, intrahepatic biliary dilatation and nonspecific possible inflammatory material surrounding the gallbladder. These findings are suspicious for acute cholecystitis. Gray's sign was negative but this does not exclude acute cholecystitis. 2. Common bile duct is only mildly dilated. . Question common bile duct stones. 3. Fatty liver. Low position of an atrophic right kidney in the pelvis. Abdomen MRI 07/29/20 04:06 IMPRESSION: 1.1 cm calcific density appears to localize to the common bile duct. The gallbladder is largely decompressed and mild intrahepatic biliary dilatation persists. Associated right upper quadrant inflammatory changes. Other chronic and incidental findings as detailed above. Catheter Placement 07/30/20 00:00 IMPRESSION: IMAGE(S) OBTAINED DURING PROCEDURE. Cholangiogram 08/01/20 00:00 IMPRESSION: IMAGE(S) OBTAINED DURING PROCEDURE. Fluoroscopy 08/01/20 00:00 IMPRESSION: IMAGE(S) OBTAINED DURING PROCEDURE. Chest X-Ray 08/05/20 00:00 IMPRESSION: Worsening aeration of the lung bases. Abdomen/Pelvis CT 08/06/20 00:00 IMPRESSION: 1. POST CHOLECYSTECTOMY. PERCUTANEOUS SURGICAL DRAIN PRESENT. SMALL AMOUNT OF FREE FLUID IN THE RIGHT UPPER QUADRANT. NO FINDINGS TO SUGGEST DISCRETE ABSCESS. 2. OTHER CHRONIC CHANGES INCLUDING PANCREATIC CALCIFICATIONS, PELVIC RIGHT KIDNEY, AND LEFT INGUINAL HERNIA WITH A SMALL PORTION OF THE BLADDER PROTRUDING INTO THE PROXIMAL INGUINAL CANAL. NO OTHER SIGNIFICANT OR ACUTE ABDOMINAL PROCESS. Chest CT 08/06/20 00:00 IMPRESSION: LARGE BILATERAL PLEURAL EFFUSIONS. LOWER LOBE AIRSPACE DISEASE MOST LIKELY DUE TO COMPRESSIVE ATELECTASIS ALTHOUGH PNEUMONIA CANNOT BE EXCLUDED. NO OTHER SIGNIFICANT FINDING ON NON-CONTRASTED CHEST CT. Assessment and Plan - Diagnosis (1) Chronic cholecystitis due to cholelithiasis with choledocholithiasis Is this a current diagnosis for this admission?: Yes Plan: ERCP attempted by Dr. dahl found to have gallstone eroding through duct, procedure aborted General surgery consulted and patient underwent exploratory laparotomy, s/p hepatic jejunostomy, repair of duct and stone removal Pain management Trend CMP GI following peripherally CT abdomen/pelvis to reevaluate abdomen 08/05: Did not show any acute findings other than some small amount of fluid collection, no abscess CT chest showed large bilateral pleural effusions Antibiotics continue with ceftriaxone and Flagyl, stopped vancomycin as there i s no evidence of MRSA infection Case discussed with general surgery Bilirubin improved Bowels moving General surgery following (2) Acute renal failure superimposed on stage 5 chronic kidney disease, not on chronic dialysis Qualifiers: Acute renal failure type: unspecified Qualified Code(s): N17.9 - Acute kidney failure, unspecified; N18.5 - Chronic kidney disease, stage 5 Is this a current diagnosis for this admission?: Yes Plan: Per Previous Physician: "Monitor urine output. Maintain SpO2 93+%. As the patient's urine output does seem to be slowly improving, cautious use of diuretics is advised. Furosemide 20 mg IV every 8 hours x3 doses." Slow, gradual improvement in creatinine continues Monitor I/O Nephrology consulted: Dialysis ongoing, will need long-term dialysis catheter, general surgery following for this Trend BMP (3) Chronic anemia Is this a current diagnosis for this admission?: Yes (4) Essential hypertension Is this a current diagnosis for this admission?: Yes (5) Metabolic acidosis Is this a current diagnosis for this admission?: Yes (6) Nausea and vomiting Qualifiers: Vomiting type: unspecified Vomiting Intractability: unspecified Qualified Code(s): R11.2 - Nausea with vomiting, unspecified Is this a current diagnosis for this admission?: Yes (7) Type 2 diabetes mellitus Qualifiers: Diabetes mellitus [facility] insulin use: without press tender long goods use Diabetes mellitus complication status: with kidney complications Diabetes mellitus complication detail: with chronic kidney disease Chronic kidney disease stage: stage 5, not on chronic dialysis Qualified Code(s): E11.22 - Type 2 diabetes mellitus with diabetic chronic kidney disease; N18.5 - Chronic kidney disease, stage 5 Is this a current diagnosis for this admission?: Yes (8) Abnormal findings on imaging of biliary tract Is this a current diagnosis for this admission?: Yes (9) GAURAV (acute kidney injury) Is this a current diagnosis for this admission?: Yes (10) Choledocholithiasis Is this a current diagnosis for this admission?: Yes (11) Vitamin K deficiency coagulation disorder Is this a current diagnosis for this admission?: Yes - Plan Summary Summary: TINA YUAN is a 70 year old male with HTN, HLD, DM2, CKD who presented on 07/28/2020 with fatigue, malaise, anorexia, nausea/vomiting/diarrhea x2 days and near-syncope resulting in fall on the day of admission. In the ED, he was found to be hypotensive, have leukocytosis, elevated bilirubin of 4.8 and elevation of transaminases and alkaline phosphatase. CT abdomen pelvis showed cholelithiasis and questionable choledocholithiasis. MRCP revealed a 1 cm stone in the common bile duct causing intra-hepatic duct dilatation. He was initially scheduled to be transferred to [place] to undergo ERCP there and has been waiting in the emergency room for transfer; however, the transfer never occurred and Dr. Dahl has now agreed to perform the ERCP tonight here at [facility] instead. The hospitalist service was therefore contacted for admission. Patient will be started on IVF and antibiotics with cefazolin/metronidazole. He remains NPO for ERCP tonight. GI consulted. General surgery consulted for eventual lap pete. GAURAV on CKD due to dehydration and N/V, will consult nep hrology. HTN uncontrolled, restart home medications. Repeat CMP/CBC in AM. 07/31/2020: Patient with failed ERCP 07/30/2020; operating report was reviewed in detail. 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 Pt scheduled for laproscopic cholecystectomy with choliogram tomorrow. Dr. Barragan, nephrology, was consulted. Pt was found to be uremic by Dr. Barragan, requesting urgen placement of temporary femal dialysis catheter for short term hemodialysis treatment. Hurst catheter was placed to monitor strick I&Os. Patient with ~300cc urine approximately 30 minutes after catheter placement, as noted on exam. Dialysis catheter was not placed today, pt unable to receive dialysis until Monday. He appears to be making urine. He is receiving IV fluids at this time. Will monitor closely. Repeat CMP/CBC in AM prior to procedure. - Time Medications reviewed and adjusted accordingly: Yes Anticipated Discharge Disposition: [facility] Anticipated Discharge Timeframe: within 72 hours - Inpatient Certification Based on my medical assessment, after consideration of the patient's comorbidities, presenting symptoms, or acuity I expect that the services needed warrant INPATIENT care.: Yes I certify that my determination is in accordance with my understanding of Medicare's requirements for reasonable and necessary INPATIENT services [42 CFR 412.3e].: Yes Medical Necessity: Significant Comorbidiites Make Outpatient Treatment Too Risky, Need Close Monitoring Due to Risk of Patient Decompensation, Need for IV Antibiotics, Risk of Complication if Not Cared For in Hospital, Risk of Diagnosis Which Will Require Inpatient Eval/Care/Monitoring
--- NOTE | 2020-08-09 11:58 | PDOC PROGRESS REPORT ---
Subjective Progress Note for:: 08/09/20 Subjective:: stable Reason For Visit: CHOLEDOCHOLITHIASIS, NEAR SYNCOPE, NAUSEA Physical Exam Vital Signs: Temp Pulse Resp BP Pulse Ox 97.8 F 81 11 L 167/76 H 96 08/09/20 08:10 08/09/20 08:10 08/09/20 08:10 08/09/20 08:10 08/09/20 08:10 Intake & Output 08/08/20 08/09/20 08/10/20 06:59 06:59 06:59 Intake Total 386 237 Output Total 2700 665 Balance -2314 -428 Weight 47.3 kg 58.2 kg General appearance: PRESENT: no acute distress Head exam: PRESENT: normocephalic Eye exam: PRESENT: EOMI Ear exam: PRESENT: normal external ear exam Mouth exam: PRESENT: moist Cardiovascular exam: PRESENT: RRR Pulses: PRESENT: normal radial pulses, normal femoral pulses Vascular exam: PRESENT: normal capillary refill GI/Abdominal exam: PRESENT: soft Rectal exam: PRESENT: deferred Extremities exam: PRESENT: full ROM Musculoskeletal exam: PRESENT: full ROM Psychiatric exam: PRESENT: appropriate affect Skin exam: PRESENT: dry Results Laboratory Results: 08/08/20 05:55 08/08/20 05:55 07/28/20 18:30 Troponin I 0.023 Impressions: Abdomen Ultrasound 07/28/20 20:00 IMPRESSION: 1. Gallstones, gallbladder wall thickening, intrahepatic biliary dilatation and nonspecific possible inflammatory material surrounding the gallbladder. These findings are suspicious for acute cholecystitis. Gray's sign was negative but this does not exclude acute cholecystitis. 2. Common bile duct is only mildly dilated. . Question common bile duct stones. 3. Fatty liver. Low position of an atrophic right kidney in the pelvis. Abdomen MRI 07/29/20 04:06 IMPRESSION: 1.1 cm calcific density appears to localize to the common bile duct. The gallbladder is largely decompressed and mild intrahepatic biliary dilatation persists. Associated right upper quadrant inflammatory changes. Other chronic and incidental findings as detailed above. Catheter Placement 07/30/20 00:00 IMPRESSION: IMAGE(S) OBTAINED DURING PROCEDURE. Cholangiogram 08/01/20 00:00 IMPRESSION: IMAGE(S) OBTAINED DURING PROCEDURE. Fluoroscopy 08/01/20 00:00 IMPRESSION: IMAGE(S) OBTAINED DURING PROCEDURE. Chest X-Ray 08/05/20 00:00 IMPRESSION: Worsening aeration of the lung bases. Abdomen/Pelvis CT 08/06/20 00:00 IMPRESSION: 1. POST CHOLECYSTECTOMY. PERCUTANEOUS SURGICAL DRAIN PRESENT. SMALL AMOUNT OF FREE FLUID IN THE RIGHT UPPER QUADRANT. NO FINDINGS TO SUGGEST DISCRETE A BSCESS. 2. OTHER CHRONIC CHANGES INCLUDING PANCREATIC CALCIFICATIONS, PELVIC RIGHT KIDNEY, AND LEFT INGUINAL HERNIA WITH A SMALL PORTION OF THE BLADDER PROTRUDING INTO THE PROXIMAL INGUINAL CANAL. NO OTHER SIGNIFICANT OR ACUTE ABDOMINAL PROCESS. Chest CT 08/06/20 00:00 IMPRESSION: LARGE BILATERAL PLEURAL EFFUSIONS. LOWER LOBE AIRSPACE DISEASE MOST LIKELY DUE TO COMPRESSIVE ATELECTASIS ALTHOUGH PNEUMONIA CANNOT BE EXCLUDED. NO OTHER SIGNIFICANT FINDING ON NON-CONTRASTED CHEST CT. Assessment & Plan - Time Anticipated Discharge Disposition: Home, Self Care Anticipated Discharge Timeframe: unk - Plan Summary Plan Summary: doing better, femi only serous h/h stable passing stool abd soft, plan, cont full liquids plan on permcath next.
[2020-08-09] MEDS ORDERED: METOPROLOL TARTRATE PF/INJ 5 MG/5 ML SDV IV PRN (21:54)
[2020-08-09] MEDS: METOPROLOL TARTRATE PF/INJ 5 MG/5 ML SDV IV PRN (22:31)
[2020-08-10] MEDS: METOCLOPRAMIDE HCL INJ/PF 10 MG/2 ML SDV IV SCH ×4 (03:52→22:37)
[2020-08-10] MEDS: METOPROLOL TARTRATE PF/INJ 5 MG/5 ML SDV IV PRN (03:52)
[2020-08-10] MEDS ORDERED: EPOETIN ALFA-EPBX 20,000 UNIT in SYRINGE, DISPOSABLE, 1 EACH IV PRN (05:00)
[2020-08-10] MEDS ORDERED: HEPARIN SOD (PORCINE) 1,000 UNIT/ML 10 ML VIAL IV PRN (05:00)
[2020-08-10] MEDS ORDERED: NORMAL SALINE 1000 ML 1,000 ML IV PRN (05:00)
[2020-08-10 05:08] LABS: HEMATOCRIT 27.9 % (37.9-51.0); HEMOGLOBIN 9.6 g/dL (13.5-17.0); MEAN CORPUSCULAR HEMOGLOBIN 30.9 pg (27.0-33.4); MEAN CORPUSCULAR HGB CONC 34.5 g/dL (32.0-36.0); MEAN CORPUSCULAR VOLUME 90 fl (80-97); PLATELET COUNT 181 10^3/uL (150-450); RED BLOOD COUNT 3.11 10^6/uL (4.35-5.55); RED CELL DISTRIBUTION WIDTH 14.5 % (11.5-14.0); WHITE BLOOD COUNT 6.5 10^3/uL (4.0-10.5)
[2020-08-10 05:15] LABS: INTERNATIONAL RATION (INR) 0.99; PROTHROMBIN TIME 13.3 SEC (11.4-15.4)
[2020-08-10 05:27] LABS: ABSOLUTE LYMPHOCYTES# (MANUAL) 1.6 10^3/uL (0.5-4.7); ABSOLUTE MONOCYTES # (MANUAL) 0.6 10^3/uL (0.1-1.4); BASOPHILS % (MANUAL) 0 % (0-2); EOSINOPHILS % (MANUAL) 3 % (0-6); LYMPHOCYTES % (MANUAL) 24 % (13-45); MONOCYTES % (MANUAL) 9 % (3-13); SEGMENTED NEUTROPHILS % (MAN) 64 % (42-78); TOTAL CELLS COUNTED 100
[2020-08-10 05:29] LABS: ANISOCYTOSIS SLIGHT; HELMET CELLS SLIGHT; PLATELET COMMENT ADEQUATE; POIKILOCYTOSIS SLIGHT; TEAR DROP CELLS SLIGHT; TOXIC GRANULATION 1+
[2020-08-10] MEDS: HEPARIN SOD (PORCINE) 5,000 UNIT/ML 1 ML VIAL SUBCUT SCH ×3 (06:20→22:39)
[2020-08-10 06:31] LABS: ALBUMIN 2.7 g/dL (3.5-5.0); ALKALINE PHOSPHATASE 593 U/L (38-126); ANION GAP 9 (5-19); ASPARTATE AMINO TRANSFERASE 49 U/L (17-59); BILIRUBIN,DIRECT 0.8 mg/dL (0.0-0.4); BLOOD UREA NITROGEN 43 mg/dL (7-20); CARBON DIOXIDE 32 mmol/L (22-30); CHLORIDE 98 mmol/L (98-107); GLUCOSE 165 mg/dL (75-110); PHOSPHORUS 5.8 mg/dL (2.5-4.5); POTASSIUM 3.4 mmol/L (3.6-5.0); TOTAL PROTEIN 5.2 g/dL (6.3-8.2)
[2020-08-10] MEDS: INSULIN REG, HUMAN 100 UNIT/ML 3 ML VIAL (PYX) SUBCUT SCH ×4 (07:49→22:57)
[2020-08-10] MEDS ORDERED: FAT EMULSIONS 250 ML IV SCH (10:00)
[2020-08-10] MEDS: DOCUSATE SODIUM 100 MG CAPSULE PO SCH (11:54)
--- NOTE | 2020-08-10 12:09 | PDOC PROGRESS REPORT ---
Subjective Progress Note for:: 08/10/20 Reason For Visit: CHOLEDOCHOLITHIASIS, NEAR SYNCOPE, NAUSEA Physical Exam Vital Signs: Temp Pulse Resp BP Pulse Ox 97.4 F 80 16 169/90 H 97 08/10/20 03:34 08/10/20 03:34 08/10/20 03:34 08/10/20 03:34 08/10/20 04:28 Intake & Output 08/09/20 08/10/20 08/11/20 06:59 06:59 06:59 Intake Total 237 395 Output Total 665 850 500 Balance -428 -455 -500 Weight 58.2 kg 59.4 kg General appearance: PRESENT: no acute distress Head exam: PRESENT: normocephalic Eye exam: PRESENT: EOMI Ear exam: PRESENT: normal external ear exam Mouth exam: PRESENT: neck supple Neck exam: PRESENT: full ROM Respiratory exam: PRESENT: clear to auscultation deven Cardiovascular exam: PRESENT: RRR Pulses: PRESENT: normal femoral pulses, normal dorsalis pedis pul Vascular exam: PRESENT: normal capillary refill Breast: PRESENT: Normal GI/Abdominal exam: PRESENT: soft - femi drain 50cc/24hrs, bilious Rectal exam: PRESENT: deferred Extremities exam: PRESENT: full ROM Musculoskeletal exam: PRESENT: full ROM Neurological exam: PRESENT: alert, awake Psychiatric exam: PRESENT: appropriate affect Skin exam: PRESENT: dry Results Laboratory Results: 08/10/20 04:17 08/10/20 04:17 08/10/20 08/10/20 08/10/20 04:17 04:17 04:17 WBC 6.5 RBC 3.11 L Hgb 9.6 L Hct 27.9 L MCV 90 MCH 30.9 MCHC 34.5 RDW 14.5 H Plt Count 181 Seg Neutrophils % Not Reportable Sodium 139.2 Potassium 3.4 L Chloride 98 Carbon Dioxide 32 H Anion Gap 9 BUN 43 H Creatinine 4.63 H Est GFR ( Amer) 15 L Glucose 165 H Calcium 8.0 L Phosphorus 5.8 H Magnesium 2.1 Cancelled Total Bilirubin 1.0 AST 49 Alkaline Phosphatase 593 H Total Protein 5.2 L Albumin 2.7 L Prealbumin 13.0 L 07/28/20 18:30 Troponin I 0.023 Impressions: Abdomen Ultrasound 07/28/20 20:00 IMPRESSION: 1. Gallstones, gallbladder wall thickening, intrahepatic biliary dilatation and nonspecific possible inflammatory material surrounding the gallbladder. These findings are suspicious for acute cholecystitis. Gray's sign was negative but this does not exclude acute cholecystitis. 2. Common bile duct is only mildly dilated. . Question common bile duct stones. 3. Fatty liver. Low position of an atrophic right kidney in the pelvis. Abdomen MRI 07/29/20 04:06 IMPRESSION: 1.1 cm calcific density appears to localize to the common bile duct. The gallbladder is largely decompressed and mild intrahepatic biliary dilatation persists. Associated right upper quadrant inflammatory changes. Other chronic and incidental findings as detailed above. Catheter Placement 07/30/20 00:00 IMPRESSION: IMAGE(S) OBTAINED DURING PROCEDURE. Cholangiogram 08/01/20 00:00 IMPRESSION: IMAGE(S) OBTAINED DURING PROCEDURE. Fluoroscopy 08/01/20 00:00 IMPRESSION: IMAGE(S) OBTAINED DURING PROCEDURE. Chest X-Ray 08/05/20 00:00 IMPRESSION: Worsening aeration of the lung bases. Abdomen/Pelvis CT 08/06/20 00:00 IMPRESSION: 1. POST CHOLECYSTECTOMY. PERCUTANEOUS SURGICAL DRAIN PRESENT. SMALL AMOUNT OF FREE FLUID IN THE RIGHT UPPER QUADRANT. NO FINDINGS TO SUGGEST DISCRETE ABSCES S. 2. OTHER CHRONIC CHANGES INCLUDING PANCREATIC CALCIFICATIONS, PELVIC RIGHT KIDNEY, AND LEFT INGUINAL HERNIA WITH A SMALL PORTION OF THE BLADDER PROTRUDING INTO THE PROXIMAL INGUINAL CANAL. NO OTHER SIGNIFICANT OR ACUTE ABDOMINAL PROCESS. Chest CT 08/06/20 00:00 IMPRESSION: LARGE BILATERAL PLEURAL EFFUSIONS. LOWER LOBE AIRSPACE DISEASE MOST LIKELY DUE TO COMPRESSIVE ATELECTASIS ALTHOUGH PNEUMONIA CANNOT BE EXCLUDED. NO OTHER SIGNIFICANT FINDING ON NON-CONTRASTED CHEST CT. Assessment & Plan - Time Anticipated Discharge Disposition: Intermediate Care Facility Anticipated Discharge Timeframe: unk - Plan Summary Plan Summary: pt doing better s/p hepaticojejunostomy still with min bile leak kerry diet '[facility]' will need permcath next day or two.
[2020-08-10] MEDS: CARVEDILOL 6.25 MG TABLET PO SCH ×2 (12:22→22:38)
[2020-08-10 13:09] LABS: HEMOGLOBIN 10.6 g/dL (13.5-17.0); MEAN CORPUSCULAR HEMOGLOBIN 30.2 pg (27.0-33.4); MEAN CORPUSCULAR HGB CONC 33.2 g/dL (32.0-36.0); MEAN CORPUSCULAR VOLUME 91 fl (80-97); PLATELET COUNT 185 10^3/uL (150-450); RED BLOOD COUNT 3.53 10^6/uL (4.35-5.55); WHITE BLOOD COUNT 7.5 10^3/uL (4.0-10.5)
[2020-08-10 13:17] LABS: INTERNATIONAL RATION (INR) 0.98; PROTHROMBIN TIME 13.2 SEC (11.4-15.4)
--- NOTE | 2020-08-10 17:54 | PDOC PROGRESS REPORT ---
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 Initial evaluation in the ED showed the patient was hypertensive with leukocytosis and elevated bilirubin and transaminase including alkaline phosphatase. CT of the abdomen showed cholelithiasis with questionable choled ocholithiasis. On 07/30/2020 he underwent ERCP by Dr. 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 On 08/01/2020 he underwent laparoscopic cholecystectomy which was converted to open cholecystectomy with Kapil-en-Y hepatic jejunostomy by Dr. Schaffer. Postoperatively he was admitted in the ICU for closer monitoring. He had acute hypoxemic respiratory failure and hypotension postoperatively. He was successfully extubated though. He required 4 units of packed RBC, 1 unit FFP and 3 L of lactated Ringer's and 500 mL of normal saline. Apparently there was significant bile staining of the retroperitoneum behind the pancreas and the duodenum. He was started on metronidazole, ceftriaxone, vancomycin and fluconazole. Over the weekend the patient was monitored while in the ICU and surprisingly did well." 08/04/2020 Patient popped out of ICU overnight. Creatinine lower today. Blood cultures negative. Patient states he has not had a bowel movement yet and would like a bowel regimen started. He does have some abdominal pain from his recent surgery but other than that he has no new complaints. General surgery is following. 08/05/2020 Patient repeatedly states he feels fine and is doing well, however his bicarb is acutely dropped to 8 and his anion gap is 26. I am concerned that he may be developing an intra-abdominal infection from his recent surgery and I have ordered a CT of his chest/abdomen/pelvis to also help rule out a developing pneumonia. I discussed case with Dr. Schaffer as well as Dr. Hill. Patient did not get much dialysis as his blood pressure was quite low. Nephrology recommended giving albumin and have also started as needed midodrine to be given 1 hour prior to dialysis sessions. 08/06/2020 Patient doing quite poorly overnight on into this morning reportedly. Hemodynamically he remained stable thankfully. His hemoglobin acutely dropped and I transfused him 1 unit PRBC. He was given multiple units FFP overnight for coagulopathy and Dr. Wilfrido gates has given him multiple doses of vitamin K which seems to have brought his INR down considerably. Patient had what looked to be silvestre blood in his abdominal drain bulb. He likely has vitamin K deficiency from prolonged hospitalization and poor nutrition. I discussed the case with Dr. Schaffer who did not want the patient to get an NG tube as he is concerned about the anastomoses being damaged by this. It may be necessary to place an NG tube in order to give the patient adequate nutrition. Alternatively, we could attempt TPN though this is not a long-term solution. Creatinine lower today. Discussed case with nephrology who will have the patient dialyzed today after getting transfused. Transfer patient to [facility], low threshold for ICU transfer. I am concerned that if patient does not improve in the near future he may not survive this admission. He is extremely frail and weak. 08/07/2020 Patient seems to be doing a bit better today after being transfused blood and FFP yesterday and also getting vitamin K. His INR sharply corrected after getting the vitamin K. His blood pressure and hemoglobin are higher today. He is breathing comfortably on room air. Patient has extremely poor nutrition as he has barely eaten anything over the past several days. I discussed with nursing potentially getting him PPN/TPN though nephrology does not want him to have this. Also discussed possibility of an NG tube and tube feeds. 08/08/2020 Patient still continues to improve today. He has a bit of more color in his face today. He is having multiple bowel movements now and his INR has been fully corrected down to 1. Creatinine is notably lower. General surgery following. Hemoglobin rising 08/09/2020 Patient is having some coarse coughing and gurgling when he speaks. Discussed with nursing to check on his swallowing ability although he has been reportedly eating very well over the past few days. Blood pressure is mildly elevated. 08/10/2020 Patient states he is doing significantly better today from respiratory standpoint. He does sound less congested today compared to prior exams. General surgery is following and planning to place a permacath within the next few days. Patient is continued on antibiotics although these can likely complete very soon. Blood pressure elevated but will likely improve with dialysis. Patient has no new complaints. He will need to go to SNF at discharge. Reason For Visit: CHOLEDOCHOLITHIASIS, NEAR SYNCOPE, NAUSEA Physical Exam Vital Signs: Temp Pulse Resp BP Pulse Ox 98.6 F 89 18 174/85 H 97 08/10/20 11:25 08/10/20 11:25 08/10/20 11:25 08/10/20 11:25 08/10/20 11:25 Intake & Output 08/09/20 08/10/20 08/11/20 06:59 06:59 06:59 Intake Total 237 395 Output Total 665 850 740 Balance -428 -455 -740 Weight 58.2 kg 59.4 kg Exam: General appearance: PRESENT: no acute distress, appears thin and weak, states he is much less congested today Head exam: PRESENT: atraumatic, normocephalic Eye exam: PRESENT: conjunctiva pale Mouth exam: PRESENT: moist Respiratory exam: PRESENT: clear to auscultation deven. ABSENT: rales, rhonchi, wheezes Cardiovascular exam: PRESENT: RRR. ABSENT: diastolic murmur, rubs, systolic murmur GI/Abdominal exam: PRESENT: normal bowel sounds, soft, nontender. Right abdomen drain with nonbloody serous fluid fluid ABSENT: distended, guarding, mass, organolmegaly, rebound Rectal exam: PRESENT: deferred Neurological exam: PRESENT: alert, awake, oriented to person, oriented to place, oriented to time, oriented to situation Psychiatric exam: PRESENT: appropriate affect, normal mood Skin exam: PRESENT: dry, intact, warm Results Laboratory Results: 08/10/20 12:59 08/10/20 04:17 08/10/20 08/10/20 08/10/20 04:17 04:17 04:17 WBC 6.5 RBC 3.11 L Hgb 9.6 L Hct 27.9 L MCV 90 MCH 30.9 MCHC 34.5 RDW 14.5 H Plt Count 181 Seg Neutrophils % Not Reportable Sodium 139.2 Potassium 3.4 L Chloride 98 Carbon Dioxide 32 H Anion Gap 9 BUN 43 H Creatinine 4.63 H Est GFR ( Amer) 15 L Glucose 165 H Calcium 8.0 L Phosphorus 5.8 H Magnesium 2.1 Cancelled Total Bilirubin 1.0 AST 49 Alkaline Phosphatase 593 H Total Protein 5.2 L Albumin 2.7 L Prealbumin 13.0 L Triglycerides 08/10/20 08/10/20 07:32 12:59 WBC 7.5 RBC 3.53 L Hgb 10.6 L Hct 32.0 L MCV 91 MCH 30.2 MCHC 33.2 RDW 15.0 H Plt Count 185 Seg Neutrophils % Sodium Potassium Chloride Carbon Dioxide Anion Gap BUN Creatinine Est GFR ( Amer) Glucose Calcium Phosphorus Magnesium Total Bilirubin AST Alkaline Phosphatase Total Protein Albumin Prealbumin Triglycerides 462 H 07/28/20 18:30 Troponin I 0.023 Impressions: Abdomen Ultrasound 07/28/20 20:00 IMPRESSION: 1. Gallstones, gallbladder wall thickening, intrahepatic biliary dilatation and nonspecific possible inflammatory material surrounding the gallbladder. These findings are suspicious for acute cholecystitis. Gray's sign was negative but this does not exclude acute cholecystitis. 2. Common bile duct is only mildly dilated. . Question common bile duct stones. 3. Fatty liver. Low position of an atrophic right kidney in the pelvis. Abdomen MRI 07/29/20 04:06 IMPRESSION: 1.1 cm calcific density appears to localize to the common bile duct. The gallbladder is largely decompressed and mild intrahepatic biliary dilatation persists. Associated right upper quadrant inflammatory changes. Other chronic and incidental findings as detailed above. Catheter Placement 07/30/20 00:00 IMPRESSION: IMAGE(S) OBTAINED DURING PROCEDURE. Cholangiogram 08/01/20 00:00 IMPRESSION: IMAGE(S) OBTAINED DURING PROCEDURE. Fluoroscopy 08/01/20 00:00 IMPRESSION: IMAGE(S) OBTAINED DURING PROCEDURE. Chest X-Ray 08/05/20 00:00 IMPRESSION: Worsening aeration of the lung bases. Abdomen/Pelvis CT 08/06/20 00:00 IMPRESSION: 1. POST CHOLECYSTECTOMY. PERCUTANEOUS SURGICAL DRAIN PRESENT. SMALL AMOUNT OF FREE FLUID IN THE RIGHT UPPER QUADRANT. NO FINDINGS TO SUGGEST DISCRETE ABSCESS. 2. OTHER CHRONIC CHANGES INCLUDING PANCREATIC CALCIFICATIONS, PELVIC RIGHT KIDNEY, AND LEFT INGUINAL HERNIA WITH A SMALL PORTION OF THE BLADDER PROTRUDING INTO THE PROXIMAL INGUINAL CANAL. NO OTHER SIGNIFICANT OR ACUTE ABDOMINAL PROCESS. Chest CT 08/06/20 00:00 IMPRESSION: LARGE BILATERAL PLEURAL EFFUSIONS. LOWER LOBE AIRSPACE DISEASE MOST LIKELY DUE TO COMPRESSIVE ATELECTASIS ALTHOUGH PNEUMONIA CANNOT BE EXCLUDED. NO OTHER SIGNIFICANT FINDING ON NON-CONTRASTED CHEST CT. Assessment and Plan - Diagnosis (1) Chronic cholecystitis due to cholelithiasis with choledocholithiasis Is this a current diagnosis for this admission?: Yes Plan: ERCP attempted by Dr. dahl found to have gallstone eroding through duct, procedure aborted General surgery consulted and patient underwent exploratory laparotomy, s/p hepatic jejunostomy, repair of duct and stone removal Pain management Trend CMP GI following peripherally CT abdomen/pelvis to reevaluate abdomen 08/05: Did not show any acute findings other than some small amount of fluid collection, no abscess CT chest showed large bilateral pleural effusions Antibiotics continue with ceftriaxone and Flagyl, stopped vancomycin as there is no evidence of MRSA infection; Case discussed with general surgery Bilirubin improved Bowels moving General surgery following (2) Acute renal failure superimposed on stage 5 chronic kidney disease, not on chronic dialysis Qualifiers: Acute renal failure type: unspecified Qualified Code(s): N17.9 - Acute kidney failure, unspecified; N18.5 - Chronic kidney disease, stage 5 Is this a current diagnosis for this admission?: Yes Plan: Per Previous Physician: "Monitor urine output. Maintain SpO2 93+%. As the patient's urine output does seem to be slowly improving, cautious use of diuretics is advised. Furosemide 20 mg IV every 8 hours x3 doses." Slow, gradual improvement in creatinine continues Monitor I/O Nephrology consulted: Dialysis ongoing, will need long-term dialysis catheter, general surgery following for this Trend BMP (3) Chronic anemia Is this a current diagnosis for this admission?: Yes (4) Essential hypertension Is this a current diagnosis for this admission?: Yes (5) Metabolic acidosis Is this a current diagnosis for this admission?: Yes (6) Nausea and vomiting Qualifiers: Vomiting type: unspecified Vomiting Intractability: unspecified Qualified Code(s): R11.2 - Nausea with vomiting, unspecified Is this a current diagnosis for this admission?: Yes (7) Type 2 diabetes mellitus Qualifiers: Diabetes mellitus halfway insulin use: without halfway use Diabetes mellitus complication status: with kidney complications Diabetes mellitus complication detail: with chronic kidney disease Chronic kidney disease stage: stage 5, not on chronic dialysis Qualified Code(s): E11.22 - Type 2 diabetes mellitus with diabetic chronic kidney disease; N18.5 - Chronic kidney disease, stage 5 Is this a current diagnosis for this admission?: Yes (8) Abnormal findings on imaging of biliary tract Is this a current diagnosis for this admission?: Yes (9) GAURAV (acute kidney injury) Is this a current diagnosis for this admission?: Yes (10) Choledocholithiasis Is this a current diagnosis for this admission?: Yes (11) Vitamin K deficiency coagulation disorder Is this a current diagnosis for this admission?: Yes - Plan Summary Summary: TINA YUAN is a 70 year old male with HTN, HLD, DM2, CKD who presented on 07/28/2020 with fatigue, malaise, anorexia, nausea/vomiting/diarrhea x2 days and near-syncope resulting in fall on the day of admission. In the ED, he was found to be hypotensive, have leukocytosis, elevated bilirubin of 4.8 and elevation of transaminases and alkaline phosphatase. CT abdomen pelvis showed cholelithiasis and questionable choledocholithiasis. MRCP revealed a 1 cm stone in the common bile duct causing intra-hepatic duct dilatation. He was initially scheduled to be transferred to [place] to undergo ERCP there and has been waiting in the emergency room for transfer; however, the transfer never occurred and Dr. Dahl has now agreed to perform the ERCP tonight here at [facility] instead. The hospitalist service was therefore contacted for admission. Patient will be started on IVF and antibiotics with cefazolin/metronidazole. He remains NPO for ERCP tonight. GI consulted. General surgery consulted for eventual lap pete. GAURAV on CKD due to dehydration and N/V, will consult nephrology. HTN uncontrolled, restart home medications. Repeat CMP/CBC in AM. 07/31/2020: Patient with failed ERCP 07/30/2020; operating report was reviewed in detail. 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 Pt scheduled for laproscopic cholecystectomy with choliogram tomorrow. Dr. Barragan, nephrology, was consulted. Pt was found to be uremic by Dr. Barragan, requesting urgen placement of temporary femal dialysis catheter for short term hemodialysis treatment. Hurst catheter was placed to monitor strick I&Os. Patient with ~300cc urine approximately 30 minutes after catheter placement, as noted on exam. Dialysis catheter was not placed today, pt unable to receive dialysis until Monday. He appears to be making urine. He is receiving IV fluids at this time. Will monitor closely. Repeat CMP/CBC in AM prior to procedure. - Time Medications reviewed and adjusted accordingly: Yes Anticipated Discharge Disposition: Custodial Facility Anticipated Discharge Timeframe: within 72 hours - Inpatient Certification Based on my medical assessment, after consideration of the patient's comorbidities, presenting symptoms, or acuity I expect that the services needed warrant INPATIENT care.: Yes I certify that my determination is in accordance with my understanding of Medicare's requirements for reasonable and necessary INPATIENT services [42 CFR 412.3e].: Yes Medical Necessity: Significant Comorbidiites Make Outpatient Treatment Too Ris [place], Need Close Monitoring Due to Risk of Patient Decompensation, Risk of Complication if Not Cared For in Hospital, Risk of Diagnosis Which Will Require Inpatient Eval/Care/Monitoring
[2020-08-10] MEDS ORDERED: FAT EMULSIONS 250 ML IV ONE (18:00)
--- NOTE | 2020-08-10 22:08 | PDOC PROGRESS REPORT ---
Subjective Progress Note for:: 08/10/20 Subjective:: I am seeing the patient during dialysis this morning. He tells me that he feels better. He said he is tolerating liquid diet. He denies any nausea, vomiting or abdominal pain. His blood pressure is better and in fact is been elevated. He still makes some urine anywhere between 400 to 500 mL per 24 hours. Is currently tolerating dialysis without any problems. Reason For Visit: CHOLEDOCHOLITHIASIS, NEAR SYNCOPE, NAUSEA Physical Exam Vital Signs: Temp Pulse Resp BP Pulse Ox 97.4 F 80 16 169/90 H 97 08/10/20 03:34 08/10/20 03:34 08/10/20 03:34 08/10/20 03:34 08/10/20 04:28 Intake & Output 08/09/20 08/10/20 08/11/20 06:59 06:59 06:59 Intake Total 237 395 Output Total 665 850 Balance -428 -455 Weight 58.2 kg 59.4 kg Vitals during dialysis: Blood pressure 155/103, heart rate of 87, blood flow rate of 250 mL/min and dialysate flow rate of 600 mL/min. Exam: General appearance: PRESENT: no acute distress, cooperative, fairly developed and fairly nourished Head exam: PRESENT: atraumatic, normocephalic Eye exam: PRESENT: conjunctiva is still pale looking but much better, PERRLA. ABSENT: scleral icterus Neck exam: ABSENT: JVD Respiratory exam: PRESENT: Diminished breath sounds. ABSENT: crackles, rales, rhonchi, unlabored, wheezes Cardiovascular exam: PRESENT: Regular rate rhythm -+S1, +S2. ABSENT: diastolic murmur, systolic murmur GI/Abdominal exam: PRESENT: normal bowel sounds, soft. ABSENT: guarding, mass, tenderness Extremities exam: ABSENT: No edema Neurological exam: PRESENT: alert, awake, oriented to person, place and time. Skin exam: PRESENT: dry, warm, Cardiovascular exam: PRESENT: +S1, +S2 GI/Abdominal exam: PRESENT: normal bowel sounds, soft, tenderness - Mildly tender in the right upper quadrant.. ABSENT: organomegaly Results Laboratory Results: 08/10/20 04:17 08/10/20 04:17 08/10/20 08/10/20 08/10/20 04:17 04:17 04:17 WBC 6.5 RBC 3.11 L Hgb 9.6 L Hct 27.9 L MCV 90 MCH 30.9 MCHC 34.5 RDW 14.5 H Plt Count 181 Seg Neutrophils % Not Reportable Sodium 139.2 Potassium 3.4 L Chloride 98 Carbon Dioxide 32 H Anion Gap 9 BUN 43 H Creatinine 4.63 H Est GFR ( Amer) 15 L Glucose 165 H Calcium 8.0 L Phosphorus 5.8 H Magnesium 2.1 Cancelled Total Bilirubin 1.0 AST 49 Alkaline Phosphatase 593 H Total Protein 5.2 L Albumin 2.7 L Prealbumin 13.0 L 07/28/20 18:30 Troponin I 0.023 Impressions: Abdomen Ultrasound 07/28/20 20:00 IMPRESSION: 1. Gallstones, gallbladder wall thickening, intrahepatic biliary dilatation and nonspecific possible inflammatory material surrounding the gallbladder. These findings are suspicious for acute cholecystitis. Gray's sign was negative but this does not exclude acute cholecystitis. 2. Common bile duct is only mildly dilated. . Question common bile duct stones. 3. Fatty liver. Low position of an atrophic right kidney in the pelvis. Abdomen MRI 07/29/20 04:06 IMPRESSION: 1.1 cm calcific density appears to localize to the common bile duct. The gallbladder is largely decompressed and mild intrahepatic biliary dilatation persists. Associated right upper quadrant inflammatory changes. Other chronic and incidental findings as detailed above. Catheter Placement 07/30/20 00:00 IMPRESSION: IMAGE(S) OBTAINED DURING PROCEDURE. Cholangiogram 08/01/20 00:00 IMPRESSION: IMAGE(S) OBTAINED DURING PROCEDURE. Fluoroscopy 08/01/20 00:00 IMPRESSION: IMAGE(S) OBTAINED DURING PROCEDURE. Chest X-Ray 08/05/20 00:00 IMPRESSION: Worsening aeration of the lung bases. Abdomen/Pelvis CT 08/06/20 00:00 IMPRESSION: 1. POST CHOLECYSTECTOMY. PERCUTANEOUS SURGICAL DRAIN PRESENT. SMALL AMOUNT OF FREE FLUID IN THE RIGHT UPPER QUADRANT. NO FINDINGS TO SUGGEST DISCRETE ABSCESS. 2. OTHER CHRONIC CHANGES INCLUDING PANCREATIC CALCIFICATIONS, PELVIC RIGHT KIDNEY, AND LEFT INGUINAL HERNIA WITH A SMALL PORTION OF THE BLADDER PROTRUDING INTO THE PROXIMAL INGUINAL CANAL. NO OTHER SIGNIFICANT OR ACUTE ABDOMINAL PROCESS. Chest CT 08/06/20 00:00 IMPRESSION: LARGE BILATERAL PLEURAL EFFUSIONS. LOWER LOBE AIRSPACE DISEASE MOST LIKELY DUE TO COMPRESSIVE ATELECTASIS ALTHOUGH PNEUMONIA CANNOT BE EXCLUDED. NO OTHER SIGNIFICANT FINDING ON NON-CONTRASTED CHEST CT. Assessment & Plan - Diagnosis (1) CKD (chronic kidney disease), stage V Is this a current diagnosis for this admission?: Yes Plan: Secondary to diabetic nephropathy with known proteinuria. I believe the patient has now reached ESRD and would require chronic long-term dialysis treatment. When I last saw him a year ago he was on the verge of going to ESRD with all complications associated with it. Patient understood that he is probably going to need long-term chronic dialysis treatment. Patient is passing some urine, made about 550 mL of urine output for the past 24 hours. We will do dialysis today for 3 hours, using the patient's trialysis catheter, with 3 potassium bath, blood flow rate of 250 mL per minute, dialysate flow rate of 600 mL per minute, ultrafiltration 0.5 L as tolerated, no heparin and Retacrit with 20,000 units during dialysis intravenously. Patient is currently being monitored carefully. For planning, I request case management to arrange outpatient chronic hemodialysis treatment at [facility] upon discharge. Patient will also need permacath placement which I talked to Dr. Schaffer about. PermCath is being planned to be placed in the next few days. (2) Acute renal failure superimposed on stage 5 chronic kidney disease, not on chronic dialysis Qualifiers: Acute renal failure type: unspecified Qualified Code(s): N17.9 - Acute kidney failure, unspecified; N18.5 - Chronic kidney disease, stage 5 Is this a current diagnosis for this admission?: Yes Plan: Patient's kidney function has gotten worse this admission due to his acute illness which puts him more to ESRD from CKD 5. Plan as above. (3) Metabolic acidosis Is this a current diagnosis for this admission?: Yes Plan: Resolved. (4) Sepsis following intra-abdominal surgery Is this a current diagnosis for this admission?: Yes Plan: Blood cultures were negative. He was given a dose of Zosyn initially. Completed ceftriaxone, and metronidazole. Vancomycin discontinued. (5) Chronic cholecystitis due to cholelithiasis with choledocholithiasis Is this a current diagnosis for this admission?: Yes Plan: Status post cholecystectomy initially laparoscopic converted to open procedure on 08/01/2020. Status post ERCP on 07/30/2020. Surgery following. (6) Hypoalbuminemia Is this a current diagnosis for this admission?: Yes Plan: Start Nepro supplement. (7) Type 2 diabetes mellitus Qualifiers: Diabetes mellitus manager long term care insulin use: without manager long term care use Diabetes mellitus complication status: with kidney complications Diabetes mellitus complication detail: with chronic kidney disease Chronic kidney disease stage: stage 5, not on chronic dialysis Qualified Code(s): E11.22 - Type 2 diabetes mellitus with diabetic chronic kidney disease; N18.5 - Chronic kidney disease, stage 5 Is this a current diagnosis for this admission?: Yes Plan: Currently controlled. (8) Anemia in chronic kidney disease (CKD) Qualifiers: Chronic kidney disease stage: stage 4 (severe) Qualified Code(s): N18.4 - Chronic kidney disease, stage 4 (severe); D63.1 - Anemia in chronic kidney disease Is this a current diagnosis for this admission?: Yes Plan: Patient has chronic anemia of chronic kidney disease and has refused to take NOELLE therapy for the past 1 to 2 years. Currently his iron is also low at 41.6, TSAT19 and ferritin of 543. He was given blood transfusions. I will give Retacrit during dialysis treatment. (9) Chronic kidney disease-mineral and bone disorder Is this a current diagnosis for this admission?: Yes Plan: Phosphorus is 10.5 with PTH of 318.2 and normal corrected calcium. Once the patient is taking medications orally he would need phosphorus binder and vitamin D analogs. We will hold for now. (10) Pleural effusion Is this a current diagnosis for this admission?: Yes Plan: If it compromises the breathing, therapeutic thoracentesis might need to be done. (11) Coagulopathy Is this a current diagnosis for this admission?: Yes Plan: Resolved. (12) Essential hypertension Is this a current diagnosis for this admission?: Yes Plan: Start resuming blood pressure medication regimen slowly. (13) Acute hypoxemic respiratory failure Is this a current diagnosis for this admission?: Yes Plan: Resolved. - Time Time with patient: 15-25 minutes
[2020-08-11] MEDS: HEPARIN SOD (PORCINE) 5,000 UNIT/ML 1 ML VIAL SUBCUT SCH ×3 (06:03→21:22)
[2020-08-11] MEDS: METOCLOPRAMIDE HCL INJ/PF 10 MG/2 ML SDV IV SCH ×4 (06:07→21:22)
[2020-08-11] MEDS: INSULIN REG, HUMAN 100 UNIT/ML 3 ML VIAL (PYX) SUBCUT SCH ×4 (08:06→21:22)
[2020-08-11] MEDS: CARVEDILOL 6.25 MG TABLET PO SCH ×2 (10:38→21:21)
--- NOTE | 2020-08-11 13:35 | PDOC PROGRESS REPORT ---
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 Initial evaluation in the ED showed the patient was hypertensive wi th leukocytosis and elevated bilirubin and transaminase including alkaline phosphatase. CT of the abdomen showed cholelithiasis with questionable choledocholithiasis. On 07/30/2020 he underwent ERCP by Dr. 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 On 08/01/2020 he underwent laparoscopic cholecystectomy which was converted to open cholecystectomy with Kapil-en-Y hepatic jejunostomy by Dr. Schaffer. Postoperatively he was admitted in the ICU for closer monitoring. He had acute hypoxemic respiratory failure and hypotension postoperatively. He was successfully extubated though. He required 4 units of packed RBC, 1 unit FFP and 3 L of lactated Ringer's and 500 mL of normal saline. Apparently there was significant bile staining of the retroperitoneum behind the pancreas and the duodenum. He was started on metronidazole, ceftriaxone, vancomycin and fluconazole. Over the weekend the patient was monitored while in the ICU and surprisingly did well." 08/04/2020 Patient popped out of ICU overnight. Creatinine lower today. Blood cultures negative. Patient states he has not had a bowel movement yet and would like a bowel regimen started. He does have some abdominal pain from his recent surgery but other than that he has no new complaints. General surgery is following. 08/05/2020 Patient repeatedly states he feels fine and is doing well, however his bicarb is acutely dropped to 8 and his anion gap is 26. I am concerned that he may be developing an intra-abdominal infection from his recent surgery and I have ordered a CT of his chest/abdomen/pelvis to also help rule out a developing pneumonia. I discussed case with Dr. Schaffer as well as Dr. Hill. Patient did not get much dialysis as his blood pressure was quite low. Nephrology recommended giving albumin and have also started as needed midodrine to be given 1 hour prior to dialysis sessions. 08/06/2020 Patient doing quite poorly overnight on into this morning reportedly. Hemodynamically he remained stable thankfully. His hemoglobin acutely dropped and I transfused him 1 unit PRBC. He was given multiple units FFP overnight for coagulopathy and Dr. Wilfrido gates has given him multiple doses of vitamin K which seems to have brought his INR down considerably. Patient had what looked to be silvestre blood in his abdominal drain bulb. He likely has vitamin K deficiency from prolonged hospitalization and poor nutrition. I discussed the case with Dr. Schaffer who did not want the patient to get an NG tube as he is concerned about the anastomoses being damaged by this. It may be necessary to place an NG tube in order to give the patient adequate nutrition. Alternatively, we could attempt TPN though this is not a long-term solution. Creatinine lower today. Discussed case with nephrology who will have the patient dialyzed today after getting transfused. Transfer patient to [facility], low threshold for ICU transfer. I am concerned that if patient does not improve in the near future he may not survive this admission. He is extremely frail and weak. 08/07/2020 Patient seems to be doing a bit better today after being transfused blood and FFP yesterday and also getting vitamin K. His INR sharply corrected after getting the vitamin K. His blood pressure and hemoglobin are higher today. He is breathing comfortably on room air. Patient has extremely poor nutrition as he has barely eaten anything over the past several days. I discussed with nursing potentially getting him PPN/TPN though nephrology does not want him to have this. Also discussed possibility of an NG tube and tube feeds. 08/08/2020 Patient still continues to improve today. He has a bit of more color in his face today. He is having multiple bowel movements now and his INR has been fully corrected down to 1. Creatinine is notably lower. General surgery following. Hemoglobin rising 08/09/2020 Patient is having some coarse coughing and gurgling when he speaks. Discussed with nursing to check on his swallowing ability although he has been reportedly eating very well over the past few days. Blood pressure is mildly elevated. 08/10/2020 Patient states he is doing significantly better today from respiratory standpoint. He does sound less congested today compared to prior exams. General surgery is following and planning to place a permacath within the next few days. Patient is continued on antibiotics although these can likely complete very soon. Blood pressure elevated but will likely improve with dialysis. Patient has no new complaints. He will need to go to SNF at discharge. 08/11/2020. No acute events overnight. Saw patient this morning was comfor tably sleeping but easily arousable, does not appear to be in any acute distress, has no complaint today, pending permacath placement by surgery. Reason For Visit: CHOLEDOCHOLITHIASIS, NEAR SYNCOPE, NAUSEA Physical Exam Vital Signs: Temp Pulse Resp BP Pulse Ox 97.9 F 74 17 161/81 H 96 08/11/20 11:34 08/11/20 11:34 08/11/20 11:34 08/11/20 11:34 08/11/20 11:34 Intake & Output 08/10/20 08/11/20 08/12/20 06:59 06:59 06:59 Intake Total 395 Output Total 850 2024 60 Balance -455 -2024 -60 Weight 59.4 kg 57.5 kg General appearance: PRESENT: no acute distress, well-developed, well-nourished Head exam: PRESENT: atraumatic, normocephalic Respiratory exam: PRESENT: clear to auscultation deven. ABSENT: rales, rhonchi, wheezes Cardiovascular exam: PRESENT: RRR. ABSENT: diastolic murmur, rubs, systolic murmur GI/Abdominal exam: PRESENT: normal bowel sounds, soft. ABSENT: distended, guarding, mass, organolmegaly, rebound, tenderness Neurological exam: PRESENT: other - Sleeping, easily arousable, moves all extr emities. Results Laboratory Results: 08/10/20 12:59 08/10/20 04:17 08/10/20 07:32 Triglycerides 462 H 07/28/20 18:30 Troponin I 0.023 Impressions: Abdomen Ultrasound 07/28/20 20:00 IMPRESSION: 1. Gallstones, gallbladder wall thickening, intrahepatic biliary dilatation and nonspecific possible inflammatory material surrounding the gallbladder. These findings are suspicious for acute cholecystitis. Gray's sign was negative but this does not exclude acute cholecystitis. 2. Common bile duct is only mildly dilated. . Question common bile duct stones. 3. Fatty liver. Low position of an atrophic right kidney in the pelvis. Abdomen MRI 07/29/20 04:06 IMPRESSION: 1.1 cm calcific density appears to localize to the common bile duct. The gallbladder is largely decompressed and mild intrahepatic biliary dilatation persists. Associated right upper quadrant inflammatory changes. Other chronic and incidental findings as detailed above. Catheter Placement 07/30/20 00:00 IMPRESSION: IMAGE(S) OBTAINED DURING PROCEDURE. Cholangiogram 08/01/20 00:00 IMPRESSION: IMAGE(S) OBTAINED DURING PROCEDURE. Fluoroscopy 08/01/20 00:00 IMPRESSION: IMAGE(S) OBTAINED DURING PROCEDURE. Chest X-Ray 08/05/20 00:00 IMPRESSION: Worsening aeration of the lung bases. Abdomen/Pelvis CT 08/06/20 00:00 IMPRESSION: 1. POST CHOLECYSTECTOMY. PERCUTANEOUS SURGICAL DRAIN PRESENT. SMALL AMOUNT OF FREE FLUID IN THE RIGHT UPPER QUADRANT. NO FINDINGS TO SUGGEST DISCRETE ABSCESS. 2. OTHER CHRONIC CHANGES INCLUDING PANCREATIC CALCIFICATIONS, PELVIC RIGHT KIDNEY, AND LEFT INGUINAL HERNIA WITH A SMALL PORTION OF THE BLADDER PROTRUDING INTO THE PROXIMAL INGUINAL CANAL. NO OTHER SIGNIFICANT OR ACUTE ABDOMINAL PROCESS. Chest CT 08/06/20 00:00 IMPRESSION: LARGE BILATERAL PLEURAL EFFUSIONS. LOWER LOBE AIRSPACE DISEASE MOST LIKELY DUE TO COMPRESSIVE ATELECTASIS ALTHOUGH PNEUMONIA CANNOT BE EXCLUDED. NO OTHER SIGNIFICANT FINDING ON NON-CONTRASTED CHEST CT. Assessment and Plan - Diagnosis (1) Chronic cholecystitis due to cholelithiasis with choledocholithiasis Is this a current diagnosis for this admission?: Yes Plan: Status post attempted laparoscopic cholecystectomy which was converted to open cholecystectomy with Kapli-en-Y hepatic jejunostomy 08/01/2020. On admission ERCP attempted by Dr. dahl found to have gallstone eroding through duct, procedure aborted. Pathology report negative for any dysplasia or malignancy. CT abdomen/pelvis to reevaluate abdomen 08/05: Did not show any acute findings other than some small amount of fluid collection, no abscess Continue antibiotics continue with ceftriaxone and Flagyl. Stopped vancomycin as there is no evidence of MRSA infection General surgery and GI following. Liver enzymes are trending down. Continue pain management supportive care, monitor in and out, monitor volume status and electrolytes. (2) Acute renal failure superimposed on stage 5 chronic kidney disease, not on chronic dialysis Qualifiers: Acute renal failure type: unspecified Qualified Code(s): N17.9 - Acute kidney failure, unspecified; N18.5 - Chronic kidney disease, stage 5 Is this a current diagnosis for this admission?: Yes Plan: Euvolemic. Electrolytes WNL. Renal function gradually improving. Nephrology consulted. Has been undergoing dialysis. Pending permacath placement for outpatient dialysis. Monitor in and out, monitor electrolytes and volume status, replace electrolytes as needed. Avoid nephrotoxic meds. (3) Chronic anemia Is this a current diagnosis for this admission?: Yes Plan: Likely due to surgery and chronic renal failure complicated by acute on chronic due to blood loss anemia from coagulopathy Status post 1 unit PRBC and multipleFFP transfusions on 08/06 H&H is stable. No acute sign of bleeding. Monitor H&H. Supportive transfusions. (4) Essential hypertension Is this a current diagnosis for this admission?: Yes Plan: Appears euvolemic, normotensive except for low BPs during hemodialysis as reported by previous physician. Continue current medication. Adjust meds as needed. As needed IV hydralazine and metoprolol. Outpatient PCP and nephrology follow-up. (5) Type 2 diabetes mellitus Qualifiers: Diabetes mellitus fci insulin use: without terminal operations manager use Diabetes mellitus complication status: with kidney complications Diabetes mellitus complication detail: with chronic kidney disease Chronic kidney disease stage: stage 5, not on chronic dialysis Qualified Code(s): E11.22 - Type 2 diabetes mellitus with diabetic chronic kidney disease; N18.5 - Chronic kidney disease, stage 5 Is this a current diagnosis for this admission?: Yes Plan: Diabetic diet, sliding scale insulin, correctional insulin, Accu-Chek, hypoglycemia protocol. Adjust doses as needed, resume home meds upon discharge. Outpatient PCP follow- up. (6) Vitamin K deficiency coagulation disorder Is this a current diagnosis for this admission?: Yes Plan: As per previous pressures in his note Given vitamin K Hematology consulted FFP given INR with good response to above interventions INR WNL on repeat labs. - Time Time Spent with patient: 25-34 minutes Medications reviewed and adjusted accordingly: Yes Anticipated Discharge Disposition: [facility] Anticipated Discharge Timeframe: when bed available
--- NOTE | 2020-08-11 18:13 | PDOC PROGRESS REPORT ---
Subjective Progress Note for:: 08/11/20 Subjective:: Feels well. No complaints. Reason For Visit: CHOLEDOCHOLITHIASIS, NEAR SYNCOPE, NAUSEA Physical Exam Vital Signs: Temp Pulse Resp BP Pulse Ox 97.9 F 87 18 172/76 H 92 08/11/20 16:49 08/11/20 16:49 08/11/20 16:49 08/11/20 16:49 08/11/20 16:49 Intake & Output 08/10/20 08/11/20 08/12/20 06:59 06:59 06:59 Intake Total 395 Output Total 850 2024 60 Balance -455 -2024 -60 Weight 59.4 kg 57.5 kg General appearance: PRESENT: no acute distress, cooperative Respiratory exam: PRESENT: clear to auscultation deven Cardiovascular exam: PRESENT: RRR GI/Abdominal exam: PRESENT: other - Soft, nondistended, nontender to palpation. Drain output is greenish. Results Laboratory Results: 08/10/20 12:59 08/10/20 04:17 07/28/20 18:30 Troponin I 0.023 Impressions: Abdomen Ultrasound 07/28/20 20:00 IMPRESSION: 1. Gallstones, gallbladder wall thickening, intrahepatic biliary dilatation and nonspecific possible inflammatory material surrounding the gallbladder. These findings are suspicious for acute cholecystitis. Gray's sign was negative but this does not exclude acute cholecystitis. 2. Common bile duct is only mildly dilated. . Question common bile duct stones. 3. Fatty liver. Low position of an atrophic right kidney in the pelvis. Abdomen MRI 07/29/20 04:06 IMPRESSION: 1.1 cm calcific density appears to localize to the common bile duct. The gallbladder is largely decompressed and mild intrahepatic biliary dil atation persists. Associated right upper quadrant inflammatory changes. Other chronic and incidental findings as detailed above. Catheter Placement 07/30/20 00:00 IMPRESSION: IMAGE(S) OBTAINED DURING PROCEDURE. Cholangiogram 08/01/20 00:00 IMPRESSION: IMAGE(S) OBTAINED DURING PROCEDURE. Fluoroscopy 08/01/20 00:00 IMPRESSION: IMAGE(S) OBTAINED DURING PROCEDURE. Chest X-Ray 08/05/20 00:00 IMPRESSION: Worsening aeration of the lung bases. Abdomen/Pelvis CT 08/06/20 00:00 IMPRESSION: 1. POST CHOLECYSTECTOMY. PERCUTANEOUS SURGICAL DRAIN PRESENT. SMALL AMOUNT OF FREE FLUID IN THE RIGHT UPPER QUADRANT. NO FINDINGS TO SUGGEST DISCRETE ABSC ESS. 2. OTHER CHRONIC CHANGES INCLUDING PANCREATIC CALCIFICATIONS, PELVIC RIGHT KIDNEY, AND LEFT INGUINAL HERNIA WITH A SMALL PORTION OF THE BLADDER PROTRUDING INTO THE PROXIMAL INGUINAL CANAL. NO OTHER SIGNIFICANT OR ACUTE ABDOMINAL PROCESS. Chest CT 08/06/20 00:00 IMPRESSION: LARGE BILATERAL PLEURAL EFFUSIONS. LOWER LOBE AIRSPACE DISEASE MOST LIKELY DUE TO COMPRESSIVE ATELECTASIS ALTHOUGH PNEUMONIA CANNOT BE EXCLUDED. NO OTHER SIGNIFICANT FINDING ON NON-CONTRASTED CHEST CT. Assessment & Plan - Diagnosis (1) Biliary anastomotic leak Is this a current diagnosis for this admission?: Yes Plan: From hepaticojejunostomy. Controlled. Continue current management. - Time Anticipated Discharge Disposition: Home, Self Care Anticipated Discharge Timeframe: one week
[2020-08-11] MEDS: METOPROLOL TARTRATE PF/INJ 5 MG/5 ML SDV IV PRN (18:18)
[2020-08-12] MEDS: METOCLOPRAMIDE HCL INJ/PF 10 MG/2 ML SDV IV SCH ×4 (03:53→21:48)
[2020-08-12] MEDS ORDERED: HEPARIN SOD (PORCINE) 1,000 UNIT/ML 10 ML VIAL IV PRN (05:00)
[2020-08-12 05:27] LABS: ABSOLUTE EOSINOPHILS # (AUTO) 0.2 10^3/uL (0.0-0.6); ABSOLUTE MONOCYTES (AUTO) 0.8 10^3/uL (0.1-1.4); ABSOLUTE NEUT (AUTO) 3.2 10^3/uL (1.7-8.2); BASOPHILS % (AUTO) 0.8 % (0-2); EOSINOPHILS % (AUTO) 3.2 % (0-6); HEMATOCRIT 28.7 % (37.9-51.0); HEMOGLOBIN 9.6 g/dL (13.5-17.0); LYMPHOCYTES % (AUTO) 19.3 % (13-45); MEAN CORPUSCULAR HEMOGLOBIN 30.2 pg (27.0-33.4); MEAN CORPUSCULAR HGB CONC 33.3 g/dL (32.0-36.0); MEAN CORPUSCULAR VOLUME 91 fl (80-97); MONOCYTES % (AUTO) 14.9 % (3-13); PLATELET COUNT 186 10^3/uL (150-450); RED BLOOD COUNT 3.16 10^6/uL (4.35-5.55); RED CELL DISTRIBUTION WIDTH 14.8 % (11.5-14.0); SEGMENTED NEUTROPHILS % (AUTO) 61.8 % (42-78); TOTAL CELLS COUNTED % (AUTO) 100 %; WHITE BLOOD COUNT 5.2 10^3/uL (4.0-10.5)
[2020-08-12 05:43] LABS: INTERNATIONAL RATION (INR) 1.01; PROTHROMBIN TIME 13.5 SEC (11.4-15.4)
[2020-08-12] MEDS: HEPARIN SOD (PORCINE) 5,000 UNIT/ML 1 ML VIAL SUBCUT SCH ×3 (06:01→21:47)
[2020-08-12] MEDS ORDERED: EPOETIN ALFA-EPBX 10,000 UNIT/ML VIAL (RENAL) IV PRN (08:03)
[2020-08-12] MEDS ORDERED: DEXTROSE 50%-WATER 25 GM/50 ML DISP.SYRIN IV PRN ×2 (08:46)
[2020-08-12] MEDS ORDERED: DEXTROSE 40% GEL 15 GM TUBE PO PRN ×2 (08:46)
[2020-08-12] MEDS ORDERED: GLUCAGON,HUMAN RECOMB 1 MG INJ IM PRN (08:46)
[2020-08-12 09:51] LABS: ANION GAP 11 (5-19); BLOOD UREA NITROGEN 48 mg/dL (7-20); CALCIUM 7.9 mg/dL (8.4-10.2); CARBON DIOXIDE 26 mmol/L (22-30); CHLORIDE 99 mmol/L (98-107); GLUCOSE 170 mg/dL (75-110); POTASSIUM 3.6 mmol/L (3.6-5.0)
[2020-08-12] MEDS: CARVEDILOL 6.25 MG TABLET PO SCH ×2 (10:24→21:47)
[2020-08-12] MEDS: DOCUSATE SODIUM 100 MG CAPSULE PO SCH (10:24)
[2020-08-12] MEDS: INSULIN LISPRO 100 UNIT/ML 3 ML VIAL SUBCUT SCH ×3 (12:27→21:46)
--- NOTE | 2020-08-12 13:08 | PDOC PROGRESS REPORT ---
Subjective Progress Note for:: 08/12/20 Reason For Visit: This patient was seen by me on dialysis today. Undergoing dialysis without any issues. He denies any history of chest pain or shortness of breath. Labs and medications were reviewed and dialysis orders were reviewed with the treating dialysis nurse.This patient developed acute on chronic kidney disease stage IV and now deemed to have reached ESRD and was initiated on hemodialysis on 08/03/2020 through a temporary catheter. He is scheduled to have a permacath placed by Dr. Schaffer tomorrow. 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 Initial evaluation in the ED showed the patient was hypotensive with leukocytosis and elevated bilirubin and tra nsaminase including alkaline phosphatase. CT of the abdomen showed cholelithiasis with questionable choledocholithiasis. On 07/30/2020 he underwent ERCP by Dr. 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 On 08/01/2020 he underwent laparoscopic cholecystectomy which was converted to open cholecystectomy with Kapil-en-Y hepatic jejunostomy by Dr. Schaffer. Postoperatively he was admitted in the ICU for closer monitoring. He had acute hypoxemic respiratory failure and hypotension postoperatively. He was successfully extubated though. He required 4 units of packed RBC, 1 unit FFP and 3 L of lactated Ringer's and 500 mL of normal saline. Physical Exam Vital Signs: Temp Pulse Resp BP Pulse Ox 98.7 F 92 15 137/73 H 99 08/12/20 11:56 08/12/20 11:56 08/12/20 11:56 08/12/20 11:56 08/12/20 11:56 Intake & Output 08/11/20 08/12/20 08/13/20 06:59 06:59 06:59 Intake Total 270 Output Total 2024 840 600 Balance -5 -570 -600 Weight 57.5 kg 58.1 kg General appearance: PRESENT: no acute distress Respiratory exam: PRESENT: clear to auscultation deven, decreased breath sounds. ABSENT: crackles Cardiovascular exam: PRESENT: +S1, +S2 GI/Abdominal exam: PRESENT: normal bowel sounds, soft, tenderness - Mildly tender in the right upper quadrant.. ABSENT: organomegaly Extremities exam: ABSENT: pedal edema Neurological exam: PRESENT: alert, oriented to person, oriented to place Psychiatric exam: PRESENT: appropriate affect Skin exam: PRESENT: normal color. ABSENT: erythema, mottled, rash Results Laboratory Results: 08/12/20 05:12 08/12/20 05:12 08/12/20 08/12/20 08/12/20 05:12 05:12 05:12 WBC 5.2 RBC 3.16 L Hgb 9.6 L Hct 28.7 L MCV 91 MCH 30.2 MCHC 33.3 RDW 14.8 H Plt Count 186 Seg Neutrophils % 61.8 Sodium 136.4 L Potassium 3.6 Chloride 99 Carbon Dioxide 26 Anion Gap 11 BUN 48 H Creatinine 4.49 H Est GFR ( Amer) 16 L Glucose 170 H Calcium 7.9 L Magnesium 2.1 07/28/20 18:30 Troponin I 0.023 Impressions: Abdomen Ultrasound 07/28/20 20:00 IMPRESSION: 1. Gallstones, gallbladder wall thickening, intrahepatic biliary dilatation and nonspecific possible inflammatory material surrounding the gallbladder. These findings are suspicious for acute cholecystitis. Gray's sign was negative but this does not exclude acute cholecystitis. 2. Common bile duct is only mildly dilated. . Question common bile duct stones. 3. Fatty liver. Low position of an atrophic right kidney in the pelvis. Abdomen MRI 07/29/20 04:06 IMPRESSION: 1.1 cm calcific density appears to localize to the common bile duct. The gallbladder is largely decompressed and mild intrahepatic biliary dil atation persists. Associated right upper quadrant inflammatory changes. Other chronic and incidental findings as detailed above. Catheter Placement 07/30/20 00:00 IMPRESSION: IMAGE(S) OBTAINED DURING PROCEDURE. Cholangiogram 08/01/20 00:00 IMPRESSION: IMAGE(S) OBTAINED DURING PROCEDURE. Fluoroscopy 08/01/20 00:00 IMPRESSION: IMAGE(S) OBTAINED DURING PROCEDURE. Chest X-Ray 08/05/20 00:00 IMPRESSION: Worsening aeration of the lung bases. Abdomen/Pelvis CT 08/06/20 00:00 IMPRESSION: 1. POST CHOLECYSTECTOMY. PERCUTANEOUS SURGICAL DRAIN PRESENT. SMALL AMOUNT OF FREE FLUID IN THE RIGHT UPPER QUADRANT. NO FINDINGS TO SUGGEST DISCRETE ABSC ESS. 2. OTHER CHRONIC CHANGES INCLUDING PANCREATIC CALCIFICATIONS, PELVIC RIGHT KIDNEY, AND LEFT INGUINAL HERNIA WITH A SMALL PORTION OF THE BLADDER PROTRUDING INTO THE PROXIMAL INGUINAL CANAL. NO OTHER SIGNIFICANT OR ACUTE ABDOMINAL PROCESS. Chest CT 08/06/20 00:00 IMPRESSION: LARGE BILATERAL PLEURAL EFFUSIONS. LOWER LOBE AIRSPACE DISEASE MOST LIKELY DUE TO COMPRESSIVE ATELECTASIS ALTHOUGH PNEUMONIA CANNOT BE EXCLUDED. NO OTHER SIGNIFICANT FINDING ON NON-CONTRASTED CHEST CT. Assessment & Plan - Diagnosis (1) CKD (chronic kidney disease), stage V Is this a current diagnosis for this admission?: Yes Plan: Patient has got acute on chronic kidney disease 4/5 in the face of acute cholecystitis with obstructive jaundice or it could be that he has already progressed into ESRD given the fact that he has not kept his follow-up appointments since last year with Dr. Hill to know if he was progressing from his baseline creatinine of 4 into ESRD. Patient was initiated on hemodialysis through a temporary catheter on 08/03/2020. Scheduled to have PermCath placement tomorrow. He is currently undergoing dialysis through his temporary dialysis catheter without any issues. Dialysis is being supervised and monitored. Plan to remove left and found 500 cc of fluid as he still continues to make small amounts of urine. Dialysis orders were reviewed with the treating dialysis nurse. (2) Choledocholithiasis Is this a current diagnosis for this admission?: Yes (3) Essential hypertension Is this a current diagnosis for this admission?: Yes Plan: stable. (4) Anemia in chronic kidney disease (CKD) Qualifiers: Chronic kidney disease stage: stage 4 (severe) Qualified Code(s): N18.4 - Chronic kidney disease, stage 4 (severe); D63.1 - Anemia in chronic kidney disea se Is this a current diagnosis for this admission?: Yes Plan: On erythropoietin on dialysis today. (5) Metabolic acidosis Is this a current diagnosis for this admission?: Yes Plan: Resolved. (6) Sepsis Plan: Secondary to obstructive choledocholithiasis that has failed ERCP extraction. Sepsis stage resolved. S/p cholecystectomy and stable. (7) Type 2 diabetes mellitus Qualifiers: Diabetes mellitus long wall shear operator insulin use: without alf use Diabetes mellitus complication status: with kidney complications Diabetes mellitus complication detail: with chronic kidney disease Chronic kidney disease stage: stage 5, not on chronic dialysis Qualified Code(s): E11.22 - Type 2 diabetes mellitus with diabetic chronic kidney disease; N18.5 - Chronic kidney disease, stage 5 Is this a current diagnosis for this admission?: Yes Plan: Being managed by hospitalist.
--- NOTE | 2020-08-12 14:28 | PDOC PROGRESS REPORT ---
Subjective Progress Note for:: 08/12/20 Subjective:: seen [id number] [email or web address] Reason For Visit: CHOLEDOCHOLITHIASIS, NEAR SYNCOPE, NAUSEA Physical Exam Vital Signs: Temp Pulse Resp BP Pulse Ox 98.7 F 92 15 137/73 H 99 08/12/20 11:56 08/12/20 11:56 08/12/20 11:56 08/12/20 11:56 08/12/20 11:56 Intake & Output 08/11/20 08/12/20 08/13/20 06:59 06:59 06:59 Intake Total 270 Output Total 2024 840 700 Balance -2024 - -700 Weight 57.5 kg 58.1 kg General appearance: PRESENT: no acute distress Head exam: PRESENT: normocephalic Eye exam: PRESENT: EOMI Ear exam: PRESENT: normal external ear exam Mouth exam: PRESENT: moist Teeth exam: PRESENT: poor dentation Neck exam: PRESENT: full ROM Respiratory exam: PRESENT: unlabored Cardiovascular exam: PRESENT: RRR Pulses: PRESENT: normal femoral pulses, normal dorsalis pedis pul Vascular exam: PRESENT: normal capillary refill Breast: PRESENT: Normal GI/Abdominal exam: PRESENT: soft Rectal exam: PRESENT: deferred Gentrourinary exam: PRESENT: indwelling catheter Extremities exam: PRESENT: +1 edema Musculoskeletal exam: PRESENT: full ROM Neurological exam: PRESENT: awake Psychiatric exam: PRESENT: appropriate affect Skin exam: PRESENT: dry Results Laboratory Results: 08/12/20 05:12 08/12/20 05:12 08/12/20 08/12/20 08/12/20 05:12 05:12 05:12 WBC 5.2 RBC 3.16 L Hgb 9.6 L Hct 28.7 L MCV 91 MCH 30.2 MCHC 33.3 RDW 14.8 H Plt Count 186 Seg Neutrophils % 61.8 Sodium 136.4 L Potassium 3.6 Chloride 99 Carbon Dioxide 26 Anion Gap 11 BUN 48 H Creatinine 4.49 H Est GFR ( Amer) 16 L Glucose 170 H Calcium 7.9 L Magnesium 2.1 07/28/20 18:30 Troponin I 0.023 Impressions: Abdomen Ultrasound 07/28/20 20:00 IMPRESSION: 1. Gallstones, gallbladder wall thickening, intrahepatic biliary dilatation and nonspecific possible inflammatory material surrounding the gallbladder. These findings are suspicious for acute cholecystitis. Gray's sign was negative but this does not exclude acute cholecystitis. 2. Common bile duct is only mildly dilated. . Question common bile duct stones. 3. Fatty liver. Low position of an atrophic right kidney in the pelvis. Abdomen MRI 07/29/20 04:06 IMPRESSION: 1.1 cm calcific density appears to localize to the common bile duct. The gallbladder is largely decompressed and mild intrahepatic biliary dilatation persists. Associated right upper quadrant inflammatory changes. Other chronic and incidental findings as detailed above. Catheter Placement 07/30/20 00:00 IMPRESSION: IMAGE(S) OBTAINED DURING PROCEDURE. Cholangiogram 08/01/20 00:00 IMPRESSION: IMAGE(S) OBTAINED DURING PROCEDURE. Fluoroscopy 08/01/20 00:00 IMPRESSION: IMAGE(S) OBTAINED DURING PROCEDURE. Chest X-Ray 08/05/20 00:00 IMPRESSION: Worsening aeration of the lung bases. Abdomen/Pelvis CT 08/06/20 00:00 IMPRESSION: 1. POST CHOLECYSTECTOMY. PERCUTANEOUS SURGICAL DRAIN PRESENT. SMALL AMOUNT OF FREE FLUID IN THE RIGHT UPPER QUADRANT. NO FINDINGS TO SUGGEST DISCRETE ABSCESS. 2. OTHER CHRONIC CHANGES INCLUDING PANCREATIC CALCIFICATIONS, PELVIC RIGHT KIDNEY, AND LEFT INGUINAL HERNIA WITH A SMALL PORTION OF THE BLADDER PROTRUDING INTO THE PROXIMAL INGUINAL CANAL. NO OTHER SIGNIFICANT OR ACUTE ABDOMINAL PROCESS. Chest CT 08/06/20 00:00 IMPRESSION: LARGE BILATERAL PLEURAL EFFUSIONS. LOWER LOBE AIRSPACE DISEASE MOST LIKELY DUE TO COMPRESSIVE ATELECTASIS ALTHOUGH PNEUMONIA CANNOT BE EXCLUDED. NO OTHER SIGNIFICANT FINDING ON NON-CONTRASTED CHEST CT. Assessment & Plan - Time Anticipated Discharge Disposition: Intermediate Care Facility Anticipated Discharge Timeframe: unk - Plan Summary Plan Summary: pt doing better from surgery stanpt. will plan on permcath tomorrow;.
[2020-08-12] MEDS: INSULIN REG, HUMAN 100 UNIT/ML 3 ML VIAL (PYX) SUBCUT SCH (18:02)
--- NOTE | 2020-08-12 18:11 | PDOC PROGRESS REPORT ---
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 Initial evaluation in the ED showed the patient was hypertensive wi th leukocytosis and elevated bilirubin and transaminase including alkaline phosphatase. CT of the abdomen showed cholelithiasis with questionable choledocholithiasis. On 07/30/2020 he underwent ERCP by Dr. 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 On 08/01/2020 he underwent laparoscopic cholecystectomy which was converted to open cholecystectomy with Kapil-en-Y hepatic jejunostomy by Dr. Schaffer. Postoperatively he was admitted in the ICU for closer monitoring. He had acute hypoxemic respiratory failure and hypotension postoperatively. He was successfully extubated though. He required 4 units of packed RBC, 1 unit FFP and 3 L of lactated Ringer's and 500 mL of normal saline. Apparently there was significant bile staining of the retroperitoneum behind the pancreas and the duodenum. He was started on metronidazole, ceftriaxone, vancomycin and fluconazole. Over the weekend the patient was monitored while in the ICU and surprisingly did well." 08/04/2020 Patient popped out of ICU overnight. Creatinine lower today. Blood cultures negative. Patient states he has not had a bowel movement yet and would like a bowel regimen started. He does have some abdominal pain from his recent surgery but other than that he has no new complaints. General surgery is following. 08/05/2020 Patient repeatedly states he feels fine and is doing well, however his bicarb is acutely dropped to 8 and his anion gap is 26. I am concerned that he may be developing an intra-abdominal infection from his recent surgery and I have ordered a CT of his chest/abdomen/pelvis to also help rule out a developing pneumonia. I discussed case with Dr. Schaffer as well as Dr. Hill. Patient did not get much dialysis as his blood pressure was quite low. Nephrology recommended giving albumin and have also started as needed midodrine to be given 1 hour prior to dialysis sessions. 08/06/2020 Patient doing quite poorly overnight on into this morning reportedly. Hemodynamically he remained stable thankfully. His hemoglobin acutely dropped and I transfused him 1 unit PRBC. He was given multiple units FFP overnight for coagulopathy and Dr. Wilfrido gates has given him multiple doses of vitamin K which seems to have brought his INR down considerably. Patient had what looked to be silvestre blood in his abdominal drain bulb. He likely has vitamin K deficiency from prolonged hospitalization and poor nutrition. I discussed the case with Dr. Schaffer who did not want the patient to get an NG tube as he is concerned about the anastomoses being damaged by this. It may be necessary to place an NG tube in order to give the patient adequate nutrition. Alternatively, we could attempt TPN though this is not a long-term solution. Creatinine lower today. Discussed case with nephrology who will have the patient dialyzed today after getting transfused. Transfer patient to [facility], low threshold for ICU transfer. I am concerned that if patient does not improve in the near future he may not survive this admission. He is extremely frail and weak. 08/07/2020 Patient seems to be doing a bit better today after being transfused blood and FFP yesterday and also getting vitamin K. His INR sharply corrected after getting the vitamin K. His blood pressure and hemoglobin are higher today. He is breathing comfortably on room air. Patient has extremely poor nutrition as he has barely eaten anything over the past several days. I discussed with nursing potentially getting him PPN/TPN though nephrology does not want him to have this. Also discussed possibility of an NG tube and tube feeds. 08/08/2020 Patient still continues to improve today. He has a bit of more color in his face today. He is having multiple bowel movements now and his INR has been fully corrected down to 1. Creatinine is notably lower. General surgery following. Hemoglobin rising 08/09/2020 Patient is having some coarse coughing and gurgling when he speaks. Discussed with nursing to check on his swallowing ability although he has been reportedly eating very well over the past few days. Blood pressure is mildly elevated. 08/10/2020 Patient states he is doing significantly better today from respiratory standpoint. He does sound less congested today compared to prior exams. General surgery is following and planning to place a permacath within the next few days. Patient is continued on antibiotics although these can likely complete very soon. Blood pressure elevated but will likely improve with dialysis. Patient has no new complaints. He will need to go to SNF at discharge. 08/11/2020. No acute events overnight. Saw patient this morning was comfor tably sleeping but easily arousable, does not appear to be in any acute distress, has no complaint today, pending permacath placement by surgery. 08/12/2020. No acute events overnight. Patient is more awake and alert today, does not appear to be any apparent distress, is tolerating his feeds, denies any fever, chills, nausea, vomiting. Reason For Visit: CHOLEDOCHOLITHIASIS, NEAR SYNCOPE, NAUSEA Physical Exam Vital Signs: Temp Pulse Resp BP Pulse Ox 98.7 F 96 14 130/74 H 100 08/12/20 11:56 08/12/20 16:37 08/12/20 16:37 08/12/20 16:37 08/12/20 16:37 Intake & Output 08/11/20 08/12/20 08/13/20 06:59 06:59 06:59 Intake Total 270 Output Total 2024 840 700 Balance -2024 -570 -700 Weight 57.5 kg 58.1 kg General appearance: PRESENT: no acute distress, well-developed, well-nourished Head exam: PRESENT: atraumatic, normocephalic Respiratory exam: PRESENT: clear to auscultation deven. ABSENT: rales, rhonchi, wheezes Cardiovascular exam: PRESENT: RRR. ABSENT: diastolic murmur, rubs, systolic murmur GI/Abdominal exam: PRESENT: normal bowel sounds, soft, other - Drain in place right upper quadrant, patent, filled with greenish fluid.. ABSENT: distended, guarding, mass, organolmegaly, rebound, tenderness Neurological exam: PRESENT: alert, awake, oriented to person, oriented to place, CN II-XII grossly intact. ABSENT: motor sensory deficit Results Laboratory Results: 08/12/20 05:12 08/12/20 05:12 08/12/20 08/12/20 08/12/20 05:12 05:12 05:12 WBC 5.2 RBC 3.16 L Hgb 9.6 L Hct 28.7 L MCV 91 MCH 30.2 MCHC 33.3 RDW 14.8 H Plt Count 186 Seg Neutrophils % 61.8 Sodium 136.4 L Potassium 3.6 Chloride 99 Carbon Dioxide 26 Anion Gap 11 BUN 48 H Creatinine 4.49 H Est GFR ( Amer) 16 L Glucose 170 H Calcium 7.9 L Magnesium 2.1 07/28/20 18:30 Troponin I 0.023 Impressions: Abdomen Ultrasound 07/28/20 20:00 IMPRESSION: 1. Gallstones, gallbladder wall thickening, intrahepatic biliary dilatation and nonspecific possible inflammatory material surrounding the gallbladder. These findings are suspicious for acute cholecystitis. Gray's sign was negative but this does not exclude acute cholecystitis. 2. Common bile duct is only mildly dilated. . Question common bile duct stones. 3. Fatty liver. Low position of an atrophic right kidney in the pelvis. Abdomen MRI 07/29/20 04:06 IMPRESSION: 1.1 cm calcific density appears to localize to the common bile duct. The gallbladder is largely decompressed and mild intrahepatic biliary dilatation persists. Associated right upper quadrant inflammatory changes. Other chronic and incidental findings as detailed above. Catheter Placement 07/30/20 00:00 IMPRESSION: IMAGE(S) OBTAINED DURING PROCEDURE. Cholangiogram 08/01/20 00:00 IMPRESSION: IMAGE(S) OBTAINED DURING PROCEDURE. Fluoroscopy 08/01/20 00:00 IMPRESSION: IMAGE(S) OBTAINED DURING PROCEDURE. Chest X-Ray 08/05/20 00:00 IMPRESSION: Worsening aeration of the lung bases. Abdomen/Pelvis CT 08/06/20 00:00 IMPRESSION: 1. POST CHOLECYSTECTOMY. PERCUTANEOUS SURGICAL DRAIN PRESENT. SMALL AMOUNT OF FREE FLUID IN THE RIGHT UPPER QUADRANT. NO FINDINGS TO SUGGEST DISCRETE ABSCESS. 2. OTHER CHRONIC CHANGES INCLUDING PANCREATIC CALCIFICATIONS, PELVIC RIGHT KIDNEY, AND LEFT INGUINAL HERNIA WITH A SMALL PORTION OF THE BLADDER PROTRUDING INTO THE PROXIMAL INGUINAL CANAL. NO OTHER SIGNIFICANT OR ACUTE ABDOMINAL PROCESS. Chest CT 08/06/20 00:00 IMPRESSION: LARGE BILATERAL PLEURAL EFFUSIONS. LOWER LOBE AIRSPACE DISEASE MOST LIKELY DUE TO COMPRESSIVE ATELECTASIS ALTHOUGH PNEUMONIA CANNOT BE EXCLUDED. NO OTHER SIGNIFICANT FINDING ON NON-CONTRASTED CHEST CT. Assessment and Plan - Diagnosis (1) Chronic cholecystitis due to cholelithiasis with choledocholithiasis Is this a current diagnosis for this admission?: Yes Plan: Status post attempted laparoscopic cholecystectomy which was converted to open cholecystectomy with Kapil-en-Y hepatic jejunostomy 08/01/2020. On admission ERCP attempted by Dr. dahl found to have gallstone eroding through duct, procedure aborted. Pathology report negative for any dysplasia or malignancy. CT abdomen/pelvis to reevaluate abdomen 08/05: Did not show any acute findings other than some small amount of fluid collection, no abscess Continue antibiotics continue with ceftriaxone and Flagyl. Stopped vancomycin as there is no evidence of MRSA infection General surgery and GI following. Liver enzymes are trending down. Continue pain management supportive care, monitor in and out, monitor volume status and electrolytes. (2) Acute hypoxemic respiratory failure Is this a current diagnosis for this admission?: Yes Plan: Resolved. SPO2 WNL on RA. (3) Acute renal failure superimposed on stage 5 chronic kidney disease, not on chronic dialysis Qualifiers: Acute renal failure type: unspecified Qualified Code(s): N17.9 - Acute kidney failure, unspecified; N18.5 - Chronic kidney disease, stage 5 Is this a current diagnosis for this admission?: Yes Plan: Euvolemic. Electrolytes WNL. Renal function gradually improving. Nephrology consulted. Has been undergoing dialysis. Pending permacath kinjal cement for outpatient dialysis. Monitor in and out, monitor electrolytes and volume status, replace electrolytes as needed. Avoid nephrotoxic meds. (4) Biliary anastomotic leak Is this a current diagnosis for this admission?: Yes Plan: From hepaticojejunostomy. Controlled. Continue current management. Surgery following. (5) Chronic anemia Is this a current diagnosis for this admission?: Yes Plan: Likely due to surgery and chronic renal failure complicated by acute on chronic due to blood loss anemia from coagulopathy Status post 1 unit PRBC and multipleFFP transfusions on 08/06 H&H is stable. No acute sign of bleeding. Monitor H&H. Supportive transfusions. (6) Essential hypertension Is this a current diagnosis for this admission?: Yes Plan: Appears euvolemic, normotensive except for low BPs during hemodialysis as reported by previous physician. Continue current medication. Adjust meds as needed. As needed IV hydralazine and metoprolol. Outpatient PCP and nephrology follow-up. (7) Metabolic acidosis Is this a current diagnosis for this admission?: Yes Plan: Resolved. (8) Sepsis following intra-abdominal surgery Is this a current diagnosis for this admission?: Yes Plan: Resolved. (9) Type 2 diabetes mellitus Qualifiers: Diabetes mellitus senior care insulin use: without ad terminal makeup operator use Diabetes mellitus complication status: with kidney complications Diabetes mellitus complication detail: with chronic kidney disease Chronic kidney disease stage: stage 5, not on chronic dialysis Qualified Code(s): E11.22 - Type 2 diabetes mellitus with diabetic chronic kidney disease; N18.5 - Chronic kidney disease, stage 5 Is this a current diagnosis for this admission?: Yes Plan: Diabetic diet, sliding scale insulin, correctional insulin, Accu-Chek, hypoglycemia protocol. Adjust doses as needed, resume home meds upon discharge. Outpatient PCP follow- up. (10) Vitamin K deficiency coagulation disorder Is this a current diagnosis for this admission?: Yes Plan: As per previous pressures in his note Given vitamin K Hematology consulted FFP given INR with good response to above interventions INR WNL on repeat labs. - Time Time Spent with patient: 25-34 minutes Anticipated Discharge Disposition: [facility] Facility Anticipated Discharge Timeframe: within 72 hours
[2020-08-13] MEDS: METOCLOPRAMIDE HCL INJ/PF 10 MG/2 ML SDV IV SCH ×4 (03:07→21:46)
[2020-08-13] MEDS: HEPARIN SOD (PORCINE) 5,000 UNIT/ML 1 ML VIAL SUBCUT SCH ×3 (05:16→21:45)
[2020-08-13 07:06] LABS: HEMATOCRIT 26.1 % (37.9-51.0); HEMOGLOBIN 8.6 g/dL (13.5-17.0); MEAN CORPUSCULAR HGB CONC 32.9 g/dL (32.0-36.0); MEAN CORPUSCULAR VOLUME 91 fl (80-97); PLATELET COUNT 203 10^3/uL (150-450); RED BLOOD COUNT 2.85 10^6/uL (4.35-5.55); RED CELL DISTRIBUTION WIDTH 15.3 % (11.5-14.0); WHITE BLOOD COUNT 5.6 10^3/uL (4.0-10.5)
[2020-08-13 07:12] LABS: INTERNATIONAL RATION (INR) 1.01; PROTHROMBIN TIME 13.5 SEC (11.4-15.4)
[2020-08-13 07:31] LABS: ALBUMIN 2.6 g/dL (3.5-5.0); ALKALINE PHOSPHATASE 316 U/L (38-126); ANION GAP 11 (5-19); ASPARTATE AMINO TRANSFERASE 29 U/L (17-59); BILIRUBIN,DIRECT 0.8 mg/dL (0.0-0.4); BLOOD UREA NITROGEN 37 mg/dL (7-20); CALCIUM 7.7 mg/dL (8.4-10.2); CARBON DIOXIDE 24 mmol/L (22-30); CHLORIDE 100 mmol/L (98-107); GLUCOSE 175 mg/dL (75-110); TOTAL PROTEIN 5.2 g/dL (6.3-8.2)
[2020-08-13] MEDS ORDERED: FENTANYL CITRATE INJ/PF 100 MCG/2 ML AMPUL ONE (08:15)
[2020-08-13] MEDS ORDERED: PROPOFOL INJ 200 MG/20 ML VIAL IV ONE (08:16)
[2020-08-13] MEDS ORDERED: MIDAZOLAM 2 MG/2 ML INJ ONE (08:16)
[2020-08-13] MEDS ORDERED: ONDANSETRON HCL INJ/PF 4 MG/2 ML SDV ONE (08:16)
[2020-08-13] MEDS: INSULIN LISPRO 100 UNIT/ML 3 ML VIAL SUBCUT SCH ×4 (08:32→21:47)
[2020-08-13] MEDS ORDERED: BUPIVACAINE INJ/PF LIPOSOME/PF 266 MG/20 ML SDV ONE (12:08)
[2020-08-13] MEDS ORDERED: HEPARIN SOD (PORCINE) 1,000 UNIT/ML 1 ML VIAL ONE (12:08)
[2020-08-13] MEDS: CARVEDILOL 6.25 MG TABLET PO SCH ×2 (12:10→21:46)
[2020-08-13] MEDS ORDERED: LIDOCAINE 1%/EPINEPHRINE INJ 20 ML VIAL ONE (13:10)
[2020-08-13] MEDS ORDERED: FENTANYL CITRATE INJ/PF 100 MCG/2 ML AMPUL IV PRN ×3 (13:53)
[2020-08-13] MEDS ORDERED: MEPERIDINE HCL/PF INJ 25 MG/1 ML DISP.SYRIN IV PRN (13:53)
[2020-08-13] MEDS ORDERED: PROMETHAZINE HCL INJ 25 MG/1 ML VIAL IV PRN ×2 (13:53)
[2020-08-13] MEDS ORDERED: DIPHENHYDRAMINE HCL 50 MG/ML VIAL IV PRN (13:53)
[2020-08-13] MEDS ORDERED: ONDANSETRON HCL INJ/PF 4 MG/2 ML SDV IV PRN (13:53)
--- NOTE | 2020-08-13 14:00 | Operative Report ---
Nonrecallable Operative Report DATE OF SURGERY: 08/13/20 PREOPERATIVE DIAGNOSIS: renal failure POSTOPERATIVE DIAGNOSIS: same OPERATION: permcath placement left chest SURGEON: MADDY CLAYTON ANESTHESIA: Moderate Sedation TISSUE REMOVED OR ALTERED: None COMPLICATIONS: None ESTIMATED BLOOD LOSS: 10 cc INTRAOPERATIVE FINDINGS: See note PROCEDURE: Patient was brought to the operating room awake alert stable condition placed on the operative table supine position given IV sedation the left chest and neck were prepped and draped usual sterile fashion. After appropriate timeout and site verification the procedure commenced. The subclavian stick was made on the left side after anesthetizing the skin underneath the left clavicle with 1% lidocaine with epinephrine the vein was cannulated with a J-wire which was confirmed in superior vena cava on fluoroscopy. O. Then using the 32 cm PermCath kit the dilator introducer was passed over the J- wire into the superior vena cava. It was left in place. A point was then picked on the chest wall and it was anesthetized with 1% lidocaine with e pinephrine. A small skin incision was made with a 11 blade. The catheter was tunneled from that point to the subclavian stick site with the catheter tunnel maker supplied with a kit. This catheter was then placed into the tear-away introducer which was torn away. The catheter was residing in the superior vena cava above the right atrium confirmed on fluoroscopy. The catheter flowed and withdrew easily. The subclavian stick sites skin incision was closed with 3-0 Vicryl in the subdermal tissue. And then the cath was fixed to the left anterior chest wall with 2-0 Prolene suture. This completed the procedure. Estimated blood loss was less than 5 cc sponge needle counts correct x2 he was transferred recovery in stable condition no complications
--- NOTE | 2020-08-13 14:43 | RADIOLOGY REPORT (SQ) ---
EXAM DESCRIPTION: CHEST SINGLE VIEW IMAGES COMPLETED DATE/TIME: 08/13/2020 2:22 pm REASON FOR STUDY: LINE PLACEMENT COMPARISON: 08/05/2020 EXAM PARAMETERS: NUMBER OF VIEWS: One view. TECHNIQUE: Single frontal radiographic view of the chest acquired. RADIATION DOSE: NA LIMITATIONS: None. FINDINGS: LUNGS AND PLEURA: No opacities, masses or pneumothorax. No pleural effusion. MEDIASTINUM AND HILAR STRUCTURES: No masses. Contour normal. HEART AND VASCULAR STRUCTURES: Heart normal in size. Normal vasculature. BONES: No acute findings. HARDWARE: Duo lumen venous access catheter via left subclavian approach compared dual lumen venous ac cess catheter via left subclavian approach. Tips in expected location. OTHER: No other significant finding. IMPRESSION: No pneumothorax. New venous access catheter in expected location. TECHNICAL DOCUMENTATION: JOB ID: [id number] 2010 [employer]- All Rights Reserved Reading location - IP/workstation name: [email or web address]
--- NOTE | 2020-08-13 14:47 | RADIOLOGY REPORT (SQ) ---
EXAM DESCRIPTION: FLUORO/CV PLACEMENT IMAGES COMPLETED DATE/TIME: 08/13/2020 2:23 pm REASON FOR STUDY: LEFT SIDED PERMACATH ASSISTED WITH FLURO COMPARISON: None. FLUOROSCOPY TIME: 0.7 minutes. 3 images saved to PACS. TECHNIQUE: Intra-operative images acquired during surgical procedure to evaluate progress. NUMBER OF IMAGES: 3 images. LIMITATIONS: None. FINDINGS: Images of the upper chest acquired during catheter placement. IMPRESSION: IMAGE(S) OBTAINED DURING PROCEDURE. COMMENT: Quality ID [id number]: Final reports for procedures using fluoroscopy that document radiation exp osure indices, or exposure time and number of fluorographic images (if radiation exposure indices are not available) Please consult full operative report of the attending physician for description of the procedure. TECHNICAL DOCUMENTATION: JOB ID: [id number] 2010 [employer]- All Rights Reserved Reading location - IP/workstation name: [email or web address]
--- NOTE | 2020-08-13 15:29 | PDOC PROGRESS REPORT ---
Subjective Progress Note for:: 08/13/20 Subjective:: Per nephrology: "Patient is known to me with chronic kidney disease stage IV/V secondary to diabetic nephropathy with baseline creatinine around 4.0 associated with marques betes mellitus type 2 who I last saw in August 2019, hypertension, and hyperlipidemia who was admitted on July 28 with fatigue, Monday, anorexia, nausea, vomiting, diarrhea and near syncope causing fall during day of admission. Initial evaluation in the ED showed the patient was hypertensive wi th leukocytosis and elevated bilirubin and transaminase including alkaline phosphatase. CT of the abdomen showed cholelithiasis with questionable choledocholithiasis. On 07/30/2020 he underwent ERCP by Dr. 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 On 08/01/2020 he underwent laparoscopic cholecystectomy which was converted to open cholecystectomy with Kapil-en-Y hepatic jejunostomy by Dr. Schaffer. Postoperatively he was admitted in the ICU for closer monitoring. He had acute hypoxemic respiratory failure and hypotension postoperatively. He was successfully extubated though. He required 4 units of packed RBC, 1 unit FFP and 3 L of lactated Ringer's and 500 mL of normal saline. Apparently there was significant bile staining of the retroperitoneum behind the pancreas and the duodenum. He was started on metronidazole, ceftriaxone, vancomycin and fluconazole. Over the weekend the patient was monitored while in the ICU and surprisingly did well." 08/04/2020 Patient popped out of ICU overnight. Creatinine lower today. Blood cultures negative. Patient states he has not had a bowel movement yet and would like a bowel regimen started. He does have some abdominal pain from his recent surgery but other than that he has no new complaints. General surgery is following. 08/05/2020 Patient repeatedly states he feels fine and is doing well, however his bicarb is acutely dropped to 8 and his anion gap is 26. I am concerned that he may be developing an intra-abdominal infection from his recent surgery and I have ordered a CT of his chest/abdomen/pelvis to also help rule out a developing pneumonia. I discussed case with Dr. Schaffer as well as Dr. Hill. Patient did not get much dialysis as his blood pressure was quite low. Nephrology recommended giving albumin and have also started as needed midodrine to be given 1 hour prior to dialysis sessions. 08/06/2020 Patient doing quite poorly overnight on into this morning reportedly. Hemodynamically he remained stable thankfully. His hemoglobin acutely dropped and I transfused him 1 unit PRBC. He was given multiple units FFP overnight for coagulopathy and Dr. Wilfrido gates has given him multiple doses of vitamin K which seems to have brought his INR down considerably. Patient had what looked to be silvestre blood in his abdominal drain bulb. He likely has vitamin K deficiency from prolonged hospitalization and poor nutrition. I discussed the case with Dr. Schaffer who did not want the patient to get an NG tube as he is concerned about the anastomoses being damaged by this. It may be necessary to place an NG tube in order to give the patient adequate nutrition. Alternatively, we could attempt TPN though this is not a long-term solution. Creatinine lower today. Discussed case with nephrology who will have the patient dialyzed today after getting transfused. Transfer patient to [facility], low threshold for ICU transfer. I am concerned that if patient does not improve in the near future he may not survive this admission. He is extremely frail and weak. 08/07/2020 Patient seems to be doing a bit better today after being transfused blood and FFP yesterday and also getting vitamin K. His INR sharply corrected after getting the vitamin K. His blood pressure and hemoglobin are higher today. He is breathing comfortably on room air. Patient has extremely poor nutrition as he has barely eaten anything over the past several days. I discussed with nursing potentially getting him PPN/TPN though nephrology does not want him to have this. Also discussed possibility of an NG tube and tube feeds. 08/08/2020 Patient still continues to improve today. He has a bit of more color in his face today. He is having multiple bowel movements now and his INR has been fully corrected down to 1. Creatinine is notably lower. General surgery following. Hemoglobin rising 08/09/2020 Patient is having some coarse coughing and gurgling when he speaks. Discussed w [facility] nursing to check on his swallowing ability although he has been reportedly eating very well over the past few days. Blood pressure is mildly elevated. 08/10/2020 Patient states he is doing significantly better today from respiratory standpoint. He does sound less congested today compared to prior exams. General surgery is following and planning to place a permacath within the next few days. Patient is continued on antibiotics although these can likely complete very soon. Blood pressure elevated but will likely improve with dialysis. Patient has no new complaints. He will need to go to SNF at discharge. 08/11/2020. No acute events overnight. Saw patient this morning was comfort ably sleeping but easily arousable, does not appear to be in any acute distress, has no complaint today, pending permacath placement by surgery. 08/12/2020. No acute events overnight. Patient is more awake and alert today, does not appear to be any apparent distress, is tolerating his feeds, denies any fever, chills, nausea, vomiting. Reason For Visit: CHOLEDOCHOLITHIASIS, NEAR SYNCOPE, NAUSEA Physical Exam Vital Signs: Temp Pulse Resp BP Pulse Ox 98 F 94 24 H 131/80 H 97 08/13/20 13:57 08/13/20 14:27 08/13/20 14:27 08/13/20 14:27 08/13/20 14:27 Intake & Output 08/12/20 08/13/20 08/14/20 06:59 06:59 06:59 Intake Total 270 270 400 Output Total 940 1395 75 Balance -670 -1125 325 Weight 58.1 kg 56.2 kg General appearance: PRESENT: no acute distress, well-developed, well-nourished Head exam: PRESENT: atraumatic, normocephalic Respiratory exam: PRESENT: clear to auscultation deven. ABSENT: rales, rhonchi, wheezes Cardiovascular exam: PRESENT: RRR. ABSENT: diastolic murmur, rubs, systolic murmur GI/Abdominal exam: PRESENT: normal bowel sounds, soft, other - drain in place, patent, leakage noted.. ABSENT: distended, guarding, mass, organolmegaly, rebound, tenderness Extremities exam: PRESENT: full ROM. ABSENT: calf tenderness, clubbing, pedal edema Neurological exam: PRESENT: other - sleeping, but easily arousable, follows command. Results Laboratory Results: 08/13/20 06:00 08/13/20 06:00 08/13/20 08/13/20 06:00 06:00 WBC 5.6 RBC 2.85 L Hgb 8.6 L Hct 26.1 L MCV 91 MCH 30.0 MCHC 32.9 RDW 15.3 H Plt Count 203 Sodium 134.5 L Potassium 4.0 Chloride 100 Carbon Dioxide 24 Anion Gap 11 BUN 37 H Creatinine 3.79 H Est GFR ( Amer) 19 L Glucose 175 H Calcium 7.7 L Total Bilirubin 1.0 AST 29 Alkaline Phosphatase 316 H Total Protein 5.2 L Albumin 2.6 L 07/28/20 18:30 Troponin I 0.023 Impressions: Abdomen Ultrasound 07/28/20 20:00 IMPRESSION: 1. Gallstones, gallbladder wall thickening, intrahepatic biliary dilatation and nonspecific possible inflammatory material surrounding the gallbladder. These findings are suspicious for acute cholecystitis. Gray's sign was negative but this does not exclude acute cholecystitis. 2. Common bile duct is only mildly dilated. . Question common bile duct stones. 3. Fatty liver. Low position of an atrophic right kidney in the pelvis. Abdomen MRI 07/29/20 04:06 IMPRESSION: 1.1 cm calcific density appears to localize to the common bile duct. The gallbladder is largely decompressed and mild intrahepatic biliary dilatation persists. Associated right upper quadrant inflammatory changes. Other chronic and incidental findings as detailed above. Catheter Placement 07/30/20 00:00 IMPRESSION: IMAGE(S) OBTAINED DURING PROCEDURE. Cholangiogram 08/01/20 00:00 IMPRESSION: IMAGE(S) OBTAINED DURING PROCEDURE. Fluoroscopy 08/01/20 00:00 IMPRESSION: IMAGE(S) OBTAINED DURING PROCEDURE. Abdomen/Pelvis CT 08/06/20 00:00 IMPRESSION: 1. POST CHOLECYSTECTOMY. PERCUTANEOUS SURGICAL DRAIN PRESENT. SMALL AMOUNT OF FREE FLUID IN THE RIGHT UPPER QUADRANT. NO FINDINGS TO SUGGEST DISCRETE ABSCESS. 2. OTHER CHRONIC CHANGES INCLUDING PANCREATIC CALCIFICATIONS, PELVIC RIGHT KIDNEY, AND LEFT INGUINAL HERNIA WITH A SMALL PORTION OF THE BLADDER PROTRUDING INTO THE PROXIMAL INGUINAL CANAL. NO OTHER SIGNIFICANT OR ACUTE ABDOMINAL PROCESS. Chest CT 08/06/20 00:00 IMPRESSION: LARGE BILATERAL PLEURAL EFFUSIONS. LOWER LOBE AIRSPACE DISEASE MOST LIKELY DUE TO COMPRESSIVE ATELECTASIS ALTHOUGH PNEUMONIA CANNOT BE EXCLUDED. NO OTHER SIGNIFICANT FINDING ON NON-CONTRASTED CHEST CT. Guidance Fluoroscopy 08/13/20 00:00 IMPRESSION: IMAGE(S) OBTAINED DURING PROCEDURE. Chest X-Ray 08/13/20 14:10 IMPRESSION: No pneumothorax. New venous access catheter in expected location. Assessment and Plan - Diagnosis (1) Chronic cholecystitis due to cholelithiasis with choledocholithiasis Is this a current diagnosis for this admission?: Yes Plan: Status post attempted laparoscopic cholecystectomy which was converted to open cholecystectomy with Kapil-en-Y hepatic jejunostomy 08/01/2020. On admission ERCP attempted by Dr. dahl found to have gallstone eroding through duct, procedure aborted. Pathology report negative for any dysplasia or malignancy. CT abdomen/pelvis to reevaluate abdomen 08/05: Did not show any acute findings other than some small amount of fluid collection, no abscess Received a complecte course of IV antibiotics. Stopped vancomycin as there is no evidence of MRSA infection General surgery and GI following. Liver enzymes are trending down. Continue pain management supportive care, monitor in and out, monitor volume status and electrolytes. (2) Acute hypoxemic respiratory failure Is this a current diagnosis for this admission?: Yes Plan: Resolved. SPO2 WNL on RA. (3) Acute renal failure superimposed on stage 5 chronic kidney disease, not on chronic dialysis Qualifiers: Acute renal failure type: unspecified Qualified Code(s): N17.9 - Acute kidney failure, unspecified; N18.5 - Chronic kidney disease, stage 5 Is this a current diagnosis for this admission?: Yes Plan: Euvolemic. Electrolytes WNL. Renal function gradually improving. oh HD MWF, Permcarth placement Nephrology on board. Monitor in and out, monitor electrolytes and volume status, replace electrolytes as needed. Avoid nephrotoxic meds. (4) Biliary anastomotic leak Is this a current diagnosis for this admission?: Yes Plan: From hepaticojejunostomy. Controlled. Continue current management. Surgery following. (5) Chronic anemia Is this a current diagnosis for this admission?: Yes Plan: Likely due to surgery and chronic renal failure complicated by acute on chronic due to blood loss anemia from coagulopathy Status post 1 unit PRBC and multipleFFP transfusions on 08/06 H&H is stable. No acute sign of bleeding. Monitor H&H. Supportive transfusions. (6) Essential hypertension Is this a current diagnosis for this admission?: Yes Plan: Appears euvolemic, normotensive except for low BPs during hemodialysis as reported by previous physician. Continue current medication. Adjust meds as needed. As needed IV hydralazine and metoprolol. Outpatient PCP and nephrology follow-up. (7) Metabolic acidosis Is this a current diagnosis for this admission?: Yes Plan: Resolved. (8) Sepsis following intra-abdominal surgery Is this a current diagnosis for this admission?: Yes Plan: Resolved. 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 Adjust doses as needed, resume home meds upon discharge. Outpatient PCP follow- up. (10) Vitamin K deficiency coagulation disorder Is this a current diagnosis for this admission?: Yes Plan: As per previous pressures in his note Given vitamin K Hematology consulted FFP given INR with good response to above interventions INR WNL on repeat labs. - Time Time Spent with patient: 25-34 minutes Smoking Cessation Education: 3 to 10 minutes Anticipated Discharge Disposition: Home with Home Health Anticipated Discharge Timeframe: within 48 hours
[2020-08-14] MEDS ORDERED: HEPARIN SOD (PORCINE) 1,000 UNIT/ML 10 ML VIAL IV PRN (05:00)
[2020-08-14] MEDS ORDERED: EPOETIN ALFA-EPBX 2,000 UNIT, EPOETIN ALFA-EPBX 3,000 UNIT, EPOETIN ALFA-EPBX 20,000 UN... IV PRN ×4 (05:00)
[2020-08-14] MEDS: METOCLOPRAMIDE HCL INJ/PF 10 MG/2 ML SDV IV SCH ×4 (05:50→22:40)
[2020-08-14] MEDS: HEPARIN SOD (PORCINE) 5,000 UNIT/ML 1 ML VIAL SUBCUT SCH ×3 (05:54→22:40)
[2020-08-14 06:26] LABS: ABSOLUTE EOSINOPHILS # (AUTO) 0.1 10^3/uL (0.0-0.6); ABSOLUTE LYMPHOCYTES (AUTO) 1.2 10^3/uL (0.5-4.7); ABSOLUTE NEUT (AUTO) 3.3 10^3/uL (1.7-8.2); BASOPHILS % (AUTO) 0.9 % (0-2); EOSINOPHILS % (AUTO) 2.1 % (0-6); HEMOGLOBIN 8.4 g/dL (13.5-17.0); LYMPHOCYTES % (AUTO) 20.5 % (13-45); MEAN CORPUSCULAR HEMOGLOBIN 30.7 pg (27.0-33.4); MEAN CORPUSCULAR HGB CONC 33.5 g/dL (32.0-36.0); MEAN CORPUSCULAR VOLUME 92 fl (80-97); MONOCYTES % (AUTO) 17.6 % (3-13); PLATELET COUNT 214 10^3/uL (150-450); RED BLOOD COUNT 2.73 10^6/uL (4.35-5.55); RED CELL DISTRIBUTION WIDTH 15.5 % (11.5-14.0); SEGMENTED NEUTROPHILS % (AUTO) 58.9 % (42-78); TOTAL CELLS COUNTED % (AUTO) 100 %; WHITE BLOOD COUNT 5.6 10^3/uL (4.0-10.5)
[2020-08-14 06:50] LABS: ALBUMIN 2.5 g/dL (3.5-5.0); ALKALINE PHOSPHATASE 285 U/L (38-126); ANION GAP 13 (5-19); ASPARTATE AMINO TRANSFERASE 45 U/L (17-59); BILIRUBIN,DIRECT 0.9 mg/dL (0.0-0.4); BLOOD UREA NITROGEN 46 mg/dL (7-20); CALCIUM 7.8 mg/dL (8.4-10.2); CARBON DIOXIDE 23 mmol/L (22-30); CHLORIDE 100 mmol/L (98-107); GLUCOSE 160 mg/dL (75-110); POTASSIUM 4.1 mmol/L (3.6-5.0); TOTAL PROTEIN 5.1 g/dL (6.3-8.2)
--- NOTE | 2020-08-14 08:26 | PDOC PROGRESS REPORT ---
Subjective Progress Note for:: 08/14/20 Subjective:: doing well, seen in dialysis permcath working well still some bile in femi wbc and lfts stable abd soft, non tender will obtain hida today to eval hepaticojejunostomy will have nurse remove the trialysis cath after dialysis Reason For Visit: CHOLEDOCHOLITHIASIS, NEAR SYNCOPE, NAUSEA Physical Exam Vital Signs: Temp Pulse Resp BP Pulse Ox 97.6 F 88 20 132/64 H 99 08/14/20 03:31 08/14/20 07:00 08/14/20 03:31 08/14/20 03:31 08/14/20 03:31 Intake & Output 08/13/20 08/14/20 08/15/20 06:59 06:59 06:59 Intake Total 270 720 Output Total 1395 185 Balance -1125 535 Weight 56.2 kg 55.9 kg Results Laboratory Results: 08/14/20 05:47 08/14/20 05:47 08/14/20 08/14/20 05:47 05:47 WBC 5.6 RBC 2.73 L Hgb 8.4 L Hct 25.0 L MCV 92 MCH 30.7 MCHC 33.5 RDW 15.5 H Plt Count 214 Seg Neutrophils % 58.9 Sodium 135.8 L Potassium 4.1 Chloride 100 Carbon Dioxide 23 Anion Gap 13 BUN 46 H Creatinine 5.02 H Est GFR ( Amer) 14 L Glucose 160 H Calcium 7.8 L Magnesium 2.1 Total Bilirubin 1.0 AST 45 Alkaline Phosphatase 285 H Total Protein 5.1 L Albumin 2.5 L 07/28/20 18:30 Troponin I 0.023 Impressions: Abdomen Ultrasound 07/28/20 20:00 IMPRESSION: 1. Gallstones, gallbladder wall thickening, intrahepatic biliary dilatation and nonspecific possible inflammatory material surrounding the gallbladder. These findings are suspicious for acute cholecystitis. Gray's sign was negative but this does not exclude acute cholecystitis. 2. Common bile duct is only mildly dilated. . Question common bile duct stones. 3. Fatty liver. Low position of an atrophic right kidney in the pelvis. Abdomen MRI 07/29/20 04:06 IMPRESSION: 1.1 cm calcific density appears to localize to the common bile duct. The gallbladder is largely decompressed and mild intrahepatic biliary dilatation persists. Associated right upper quadrant inflammatory changes. Other chronic and incidental findings as detailed above. Catheter Placement 07/30/20 00:00 IMPRESSION: IMAGE(S) OBTAINED DURING PROCEDURE. Cholangiogram 08/01/20 00:00 IMPRESSION: IMAGE(S) OBTAINED DURING PROCEDURE. Fluoroscopy 08/01/20 00:00 IMPRESSION: IMAGE(S) OBTAINED DURING PROCEDURE. Abdomen/Pelvis CT 08/06/20 00:00 IMPRESSION: 1. POST CHOLECYSTECTOMY. PERCUTANEOUS SURGICAL DRAIN PRESENT. SMALL AMOUNT OF FREE FLUID IN THE RIGHT UPPER QUADRANT. NO FINDINGS TO SUGGEST DISCRETE ABSCESS. 2. OTHER CHRONIC CHANGES INCLUDING PANCREATIC CALCIFICATIONS, PELVIC RIGHT KIDNEY, AND LEFT INGUINAL HERNIA WITH A SMALL PORTION OF THE BLADDER PROTRUDING INTO THE PROXIMAL INGUINAL CANAL. NO OTHER SIGNIFICANT OR ACUTE ABDOMINAL PROCESS. Chest CT 08/06/20 00:00 IMPRESSION: LARGE BILATERAL PLEURAL EFFUSIONS. LOWER LOBE AIRSPACE DISEASE MOST LIKELY DUE TO COMPRESSIVE ATELECTASIS ALTHOUGH PNEUMONIA CANNOT BE EXCLUDED. NO OTHER SIGNIFICANT FINDING ON NON-CONTRASTED CHEST CT. Guidance Fluoroscopy 08/13/20 00:00 IMPRESSION: IMAGE(S) OBTAINED DURING PROCEDURE. Chest X-Ray 08/13/20 14:10 IMPRESSION: No pneumothorax. New venous access catheter in expected location. Assessment & Plan - Time Anticipated Discharge Disposition: Home, Self Care Anticipated Discharge Timeframe: unk
--- NOTE | 2020-08-14 10:06 | PDOC PROGRESS REPORT ---
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 Initial evaluation in the ED showed the patient was hypertensive wi th leukocytosis and elevated bilirubin and transaminase including alkaline phosphatase. CT of the abdomen showed cholelithiasis with questionable choledocholithiasis. On 07/30/2020 he underwent ERCP by Dr. 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 On 08/01/2020 he underwent laparoscopic cholecystectomy which was converted to open cholecystectomy with Kapil-en-Y hepatic jejunostomy by Dr. Schaffer. Postoperatively he was admitted in the ICU for closer monitoring. He had acute hypoxemic respiratory failure and hypotension postoperatively. He was successfully extubated though. He required 4 units of packed RBC, 1 unit FFP and 3 L of lactated Ringer's and 500 mL of normal saline. Apparently there was significant bile staining of the retroperitoneum behind the pancreas and the duodenum. He was started on metronidazole, ceftriaxone, vancomycin and fluconazole. Over the weekend the patient was monitored while in the ICU and surprisingly did well." 08/04/2020 Patient popped out of ICU overnight. Creatinine lower today. Blood cultures negative. Patient states he has not had a bowel movement yet and would like a bowel regimen started. He does have some abdominal pain from his recent surgery but other than that he has no new complaints. General surgery is following. 08/05/2020 Patient repeatedly states he feels fine and is doing well, however his bicarb is acutely dropped to 8 and his anion gap is 26. I am concerned that he may be developing an intra-abdominal infection from his recent surgery and I have ordered a CT of his chest/abdomen/pelvis to also help rule out a developing pneumonia. I discussed case with Dr. Schaffer as well as Dr. Hill. Patient did not get much dialysis as his blood pressure was quite low. Nephrology recommended giving albumin and have also started as needed midodrine to be given 1 hour prior to dialysis sessions. 08/06/2020 Patient doing quite poorly overnight on into this morning reportedly. Hemodynamically he remained stable thankfully. His hemoglobin acutely dropped and I transfused him 1 unit PRBC. He was given multiple units FFP overnight for coagulopathy and Dr. Wilfrido gates has given him multiple doses of vitamin K which seems to have brought his INR down considerably. Patient had what looked to be silvestre blood in his abdominal drain bulb. He likely has vitamin K deficiency from prolonged hospitalization and poor nutrition. I discussed the case with Dr. Schaffer who did not want the patient to get an NG tube as he is concerned about the anastomoses being damaged by this. It may be necessary to place an NG tube in order to give the patient adequate nutrition. Alternatively, we could attempt TPN though this is not a long-term solution. Creatinine lower today. Discussed case with nephrology who will have the patient dialyzed today after getting transfused. Transfer patient to [facility], low threshold for ICU transfer. I am concerned that if patient does not improve in the near future he may not survive this admission. He is extremely frail and weak. 08/07/2020 Patient seems to be doing a bit better today after being transfused blood and FFP yesterday and also getting vitamin K. His INR sharply corrected after getting the vitamin K. His blood pressure and hemoglobin are higher today. He is breathing comfortably on room air. Patient has extremely poor nutrition as he has barely eaten anything over the past several days. I discussed with nursing potentially getting him PPN/TPN though nephrology does not want him to have this. Also discussed possibility of an NG tube and tube feeds. 08/08/2020 Patient still continues to improve today. He has a bit of more color in his face today. He is having multiple bowel movements now and his INR has been fully corrected down to 1. Creatinine is notably lower. General surgery following. Hemoglobin rising 08/09/2020 Patient is having some coarse coughing and gurgling when he speaks. Discussed w [facility] nursing to check on his swallowing ability although he has been reportedly eating very well over the past few days. Blood pressure is mildly elevated. 08/10/2020 Patient states he is doing significantly better today from respiratory standpoint. He does sound less congested today compared to prior exams. General surgery is following and planning to place a permacath within the next few days. Patient is continued on antibiotics although these can likely complete very soon. Blood pressure elevated but will likely improve with dialysis. Patient has no new complaints. He will need to go to SNF at discharge. 08/11/2020. No acute events overnight. Saw patient this morning was comfort ably sleeping but easily arousable, does not appear to be in any acute distress, has no complaint today, pending permacath placement by surgery. 08/12/2020. No acute events overnight. Patient is more awake and alert today, does not appear to be any apparent distress, is tolerating his feeds, denies any fever, chills, nausea, vomiting. 08/14/2020. No acute events overnight. Saw patient this morning while receiving his hemodialysis, comfortably sitting in recliner, in no apparent distress, alert and oriented, offloaded with physical examination and answering questions appropriately, patient had his permacath placed and plan is to remove his Timur catheter, he is also been followed by surgery and plan is to have a HIDA scan today, patient is p.o. tolerant, stating that when he eats he coughs afterwards, speech therapy evaluation is pending, denies any fever, chills, nausea, vomiting. Reason For Visit: CHOLEDOCHOLITHIASIS, NEAR SYNCOPE, NAUSEA Physical Exam Vital Signs: Temp Pulse Resp BP Pulse Ox 97.6 F 88 20 132/64 H 99 08/14/20 03:31 08/14/20 07:00 08/14/20 03:31 08/14/20 03:31 08/14/20 03:31 Intake & Output 08/13/20 08/14/20 08/15/20 06:59 06:59 06:59 Intake Total 270 720 Output Total 1395 185 Balance -1125 535 Weight 56.2 kg 55.9 kg General appearance: PRESENT: no acute distress, well-developed, well-nourished Head exam: PRESENT: atraumatic, normocephalic Respiratory exam: PRESENT: clear to auscultation deevn. ABSENT: rales, rhonchi, wheezes Cardiovascular exam: PRESENT: RRR, other. ABSENT: diastolic murmur, rubs, systolic murmur Pulses: PRESENT: normal dorsalis pedis pul GI/Abdominal exam: PRESENT: normal bowel sounds, soft, other - AUBREY in place, no sign of leakage appears patent.. ABSENT: distended, guarding, mass, organolmegaly, rebound, tenderness Extremities exam: PRESENT: full ROM. ABSENT: calf tenderness, clubbing, pedal edema Neurological exam: PRESENT: alert, awake, oriented to person, oriented to place, CN II-XII grossly intact. ABSENT: motor sensory deficit Results Laboratory Results: 08/14/20 05:47 08/14/20 05:47 08/14/20 08/14/20 05:47 05:47 WBC 5.6 RBC 2.73 L Hgb 8.4 L Hct 25.0 L MCV 92 MCH 30.7 MCHC 33.5 RDW 15.5 H Plt Count 214 Seg Neutrophils % 58.9 Sodium 135.8 L Potassium 4.1 Chloride 100 Carbon Dioxide 23 Anion Gap 13 BUN 46 H Creatinine 5.02 H Est GFR ( Amer) 14 L Glucose 160 H Calcium 7.8 L Magnesium 2.1 Total Bilirubin 1.0 AST 45 Alkaline Phosphatase 285 H Total Protein 5.1 L Albumin 2.5 L 07/28/20 18:30 Troponin I 0.023 Impressions: Abdomen Ultrasound 07/28/20 20:00 IMPRESSION: 1. Gallstones, gallbladder wall thickening, intrahepatic biliary dilatation and nonspecific possible inflammatory material surrounding the gallbladder. These findings are suspicious for acute cholecystitis. Gray's sign was negative but this does not exclude acute cholecystitis. 2. Common bile duct is only mildly dilated. . Question common bile duct stones. 3. Fatty liver. Low position of an atrophic right kidney in the pelvis. Abdomen MRI 07/29/20 04:06 IMPRESSION: 1.1 cm calcific density appears to localize to the common bile duct. The gallbladder is largely decompressed and mild intrahepatic biliary dilatation persists. Associated right upper quadrant inflammatory changes. Other chronic and incidental findings as detailed above. Catheter Placement 07/30/20 00:00 IMPRESSION: IMAGE(S) OBTAINED DURING PROCEDURE. Cholangiogram 08/01/20 00:00 IMPRESSION: IMAGE(S) OBTAINED DURING PROCEDURE. Fluoroscopy 08/01/20 00:00 IMPRESSION: IMAGE(S) OBTAINED DURING PROCEDURE. Abdomen/Pelvis CT 08/06/20 00:00 IMPRESSION: 1. POST CHOLECYSTECTOMY. PERCUTANEOUS SURGICAL DRAIN PRESENT. SMALL AMOUNT OF FREE FLUID IN THE RIGHT UPPER QUADRANT. NO FINDINGS TO SUGGEST DISCRETE ABSCESS. 2. OTHER CHRONIC CHANGES INCLUDING PANCREATIC CALCIFICATIONS, PELVIC RIGHT KIDNEY, AND LEFT INGUINAL HERNIA WITH A SMALL PORTION OF THE BLADDER PROTRUDING INTO THE PROXIMAL INGUINAL CANAL. NO OTHER SIGNIFICANT OR ACUTE ABDOMINAL PROCESS. Chest CT 08/06/20 00:00 IMPRESSION: LARGE BILATERAL PLEURAL EFFUSIONS. LOWER LOBE AIRSPACE DISEASE MOST LIKELY DUE TO COMPRESSIVE ATELECTASIS ALTHOUGH PNEUMONIA CANNOT BE EXCLUDED. NO OTHER SIGNIFICANT FINDING ON NON-CONTRASTED CHEST CT. Guidance Fluoroscopy 08/13/20 00:00 IMPRESSION: IMAGE(S) OBTAINED DURING PROCEDURE. Chest X-Ray 08/13/20 14:10 IMPRESSION: No pneumothorax. New venous access catheter in expected location. Assessment and Plan - Diagnosis (1) Chronic cholecystitis due to cholelithiasis with choledocholithiasis Is this a current diagnosis for this admission?: Yes Plan: Status post attempted laparoscopic cholecystectomy which was converted to open cholecystectomy with Kapil-en-Y hepatic jejunostomy 08/01/2020. On admission ERCP attempted by Dr. dahl found to have gallstone eroding through duct, procedure aborted. Pathology report negative for any dysplasia or malignancy. CT abdomen/pelvis to reevaluate abdomen 08/05: Did not show any acute findings other than some small amount of fluid collection, no abscess Received a complecte course of IV antibiotics. Stopped vancomycin as there is no evidence of MRSA infection General surgery and GI following. Liver enzymes are trending down. Continue pain management supportive care, monitor in and out, monitor volume status and electrolytes. (2) Acute hypoxemic respiratory failure Is this a current diagnosis for this admission?: Yes Plan: Resolved. SPO2 WNL on RA. (3) Acute renal failure superimposed on stage 5 chronic kidney disease, not on chronic dialysis Qualifiers: Acute renal failure type: unspecified Qualified Code(s): N17.9 - Acute kidney failure, unspecified; N18.5 - Chronic kidney disease, stage 5 Is this a current diagnosis for this admission?: Yes Plan: Euvolemic. Electrolytes WNL. Renal function gradually improving. oh HD MWF, Permcarth placement Nephrology on board. Monitor in and out, monitor electrolytes and volume status, replace electrolytes as needed. Avoid nephrotoxic meds. (4) Biliary anastomotic leak Is this a current diagnosis for this admission?: Yes Plan: From hepaticojejunostomy. Controlled. Continue current management. Surgery following. (5) Chronic anemia Is this a current diagnosis for this admission?: Yes Plan: Likely due to surgery and chronic renal failure complicated by acute on chronic due to blood loss anemia from coagulopathy Status post 1 unit PRBC and multipleFFP transfusions on 08/06 Receiving Procrit by nephrology. H&H is stable. No acute sign of bleeding. Monitor H&H. Supportive transfusions. (6) Essential hypertension Is this a current diagnosis for this admission?: Yes Plan: Appears euvolemic, normotensive except for low BPs during hemodialysis as reported by previous physician. Continue current medication. Adjust meds as needed. As needed IV hydralazine and metoprolol. Outpatient PCP and nephrology follow-up. (7) Metabolic acidosis Is this a current diagnosis for this admission?: Yes Plan: Resolved. (8) Sepsis following intra-abdominal surgery Is this a current diagnosis for this admission?: Yes Plan: Resolved. (9) Type 2 diabetes mellitus Qualifiers: Diabetes mellitus rn long term care insulin use: without mcfp use Diabetes mellitus complication status: with kidney complications Diabetes mellitus complication detail: with chronic kidney disease Chronic kidney disease stage: stage 5, not on chronic dialysis Qualified Code(s): E11.22 - Type 2 diabetes mellitus with diabetic chronic kidney disease; N18.5 - Chronic kidney disease, stage 5 Is this a current diagnosis for this admission?: Yes Plan: Diabetic diet, sliding scale insulin, correctional insulin, Accu-Chek, hypoglycemia protocol. Adjust doses as needed, resume home meds upon discharge. Outpatient PCP follow- up. (10) Vitamin K deficiency coagulation disorder Is this a current diagnosis for this admission?: Yes Plan: As per previous pressures in his note Given vitamin K Hematology consulted FFP given INR with good response to above interventions INR WNL on repeat labs. - Time Time Spent with patient: 25-34 minutes Smoking Cessation Education: 3 to 10 minutes Anticipated Discharge Disposition: Home with Home Health Anticipated Discharge Timeframe: within 72 hours
--- NOTE | 2020-08-14 10:25 | PDOC PROGRESS REPORT ---
Subjective Progress Note for:: 08/14/20 Reason For Visit: Patient seen on dialysis today. Undergoing dialysis without any issues. He has had a good successful PermCath placed yesterday by Dr. Schaffer through which he is undergoing dialysis. Vital signs are stable. Denies any history of chest pain or shortness of breath. Labs and medications were reviewed. Dialysis orders were reviewed with the treating dialysis nurse. He still has a femoral temporary dialysis catheter which needs to be removed prior to his discharge from the hospital. Physical Exam Vital Signs: Temp Pulse Resp BP Pulse Ox 97.6 F 88 20 132/64 H 99 08/14/20 03:31 08/14/20 07:00 08/14/20 03:31 08/14/20 03:31 08/14/20 03:31 Intake & Output 08/13/20 08/14/20 08/15/20 06:59 06:59 06:59 Intake Total 270 720 Output Total 1395 185 500 Balance -1125 535 -500 Weight 56.2 kg 55.9 kg General appearance: PRESENT: no acute distress Respiratory exam: PRESENT: clear to auscultation deven, decreased breath sounds. ABSENT: crackles Cardiovascular exam: PRESENT: +S1, +S2 GI/Abdominal exam: PRESENT: normal bowel sounds, soft, tenderness - Mildly tender in the right upper quadrant.. ABSENT: organomegaly Extremities exam: ABSENT: pedal edema Neurological exam: PRESENT: alert, awake, oriented to person, oriented to place Psychiatric exam: PRESENT: appropriate affect Results Laboratory Results: 08/14/20 05:47 08/14/20 05:47 08/14/20 08/14/20 05:47 05:47 WBC 5.6 RBC 2.73 L Hgb 8.4 L Hct 25.0 L MCV 92 MCH 30.7 MCHC 33.5 RDW 15.5 H Plt Count 214 Seg Neutrophils % 58.9 Sodium 135.8 L Potassium 4.1 Chloride 100 Carbon Dioxide 23 Anion Gap 13 BUN 46 H Creatinine 5.02 H Est GFR ( Amer) 14 L Glucose 160 H Calcium 7.8 L Magnesium 2.1 Total Bilirubin 1.0 AST 45 Alkaline Phosphatase 285 H Total Protein 5.1 L Albumin 2.5 L 07/28/20 18:30 Troponin I 0.023 Impressions: Abdomen Ultrasound 07/28/20 20:00 IMPRESSION: 1. Gallstones, gallbladder wall thickening, intrahepatic biliary dilatation and nonspecific possible inflammatory material surrounding the gallbladder. These findings are suspicious for acute cholecystitis. Gray's sign was negative but this does not exclude acute cholecystitis. 2. Common bile duct is only mildly dilated. . Question common bile duct stones. 3. Fatty liver. Low position of an atrophic right kidney in the pelvis. Abdomen MRI 07/29/20 04:06 IMPRESSION: 1.1 cm calcific density appears to localize to the common bile duct. The gallbladder is largely decompressed and mild intrahepatic biliary dilatation persists. Associated right upper quadrant inflammatory changes. Other chronic and incidental findings as detailed above. Catheter Placement 07/30/20 00:00 IMPRESSION: IMAGE(S) OBTAINED DURING PROCEDURE. Cholangiogram 08/01/20 00:00 IMPRESSION: IMAGE(S) OBTAINED DURING PROCEDURE. Fluoroscopy 08/01/20 00:00 IMPRESSION: IMAGE(S) OBTAINED DURING PROCEDURE. Abdomen/Pelvis CT 08/06/20 00:00 IMPRESSION: 1. POST CHOLECYSTECTOMY. PERCUTANEOUS SURGICAL DRAIN PRESENT. SMALL AMOUNT OF FREE FLUID IN THE RIGHT UPPER QUADRANT. NO FINDINGS TO SUGGEST DISCRETE ABSCESS. 2. OTHER CHRONIC CHANGES INCLUDING PANCREATIC CALCIFICATIONS, PELVIC RIGHT K IDNEY, AND LEFT INGUINAL HERNIA WITH A SMALL PORTION OF THE BLADDER PROTRUDING INTO THE PROXIMAL INGUINAL CANAL. NO OTHER SIGNIFICANT OR ACUTE ABDOMINAL PROCESS. Chest CT 08/06/20 00:00 IMPRESSION: LARGE BILATERAL PLEURAL EFFUSIONS. LOWER LOBE AIRSPACE DISEASE MOST LIKELY DUE TO COMPRESSIVE ATELECTASIS ALTHOUGH PNEUMONIA CANNOT BE EXCLUDED. NO OTHER SIGNIFICANT FINDING ON NON-CONTRASTED CHEST CT. Guidance Fluoroscopy 08/13/20 00:00 IMPRESSION: IMAGE(S) OBTAINED DURING PROCEDURE. Chest X-Ray 08/13/20 14:10 IMPRESSION: No pneumothorax. New venous access catheter in expected location. Assessment & Plan - Diagnosis (1) CKD (chronic kidney disease), stage V Is this a current diagnosis for this admission?: Yes Plan: Patient has got acute on chronic kidney disease 4/5 in the face of acute cholecystitis with obstructive jaundice or it could be that he has already progressed into ESRD given the fact that he has not kept his follow-up appointments since last year with Dr. Hill to know if he was progressing from his baseline creatinine of 4 into ESRD. Patient was initiated on hemodialysis through a temporary catheter on 08/03/2020. He is currently undergoing dialysis through his Perm catheter without any issues. Dialysis is being supervised and monitored. Plan to remove left and found 500 cc of fluid as he still continues to make small amounts of urine. Dialysis orders were reviewed with the treating dialysis nurse. (2) Choledocholithiasis Is this a current diagnosis for this admission?: Yes Plan: Status post cholecystectomy. (3) Essential hypertension Is this a current diagnosis for this admission?: Yes Plan: stable. (4) Anemia in chronic kidney disease (CKD) Qualifiers: Chronic kidney disease stage: stage 4 (severe) Qualified Code(s): N18.4 - Chronic kidney disease, stage 4 (severe); D63.1 - Anemia in chronic kidney disease Is this a current diagnosis for this admission?: Yes Plan: On erythropoietin on dialysis today. (5) Metabolic acidosis Is this a current diagnosis for this admission?: Yes Plan: Stable. (6) Sepsis Plan: Secondary to obstructive choledocholithiasis that has failed ERCP extraction. Sepsis stage resolved. S/p cholecystectomy and stable. (7) Type 2 diabetes mellitus Qualifiers: Diabetes mellitus terminal makeup operator insulin use: without terminal makeup operator use Diabetes mellitus complication status: with kidney complications Diabetes mellitus complication detail: with chronic kidney disease Chronic kidney disease stage: stage 5, not on chronic dialysis Qualified Code(s): E11.22 - Type 2 diabetes mellitus with diabetic chronic kidney disease; N18.5 - Chronic kidney disease, stage 5 Is this a current diagnosis for this admission?: Yes Plan: Being managed by hospitalist.
[2020-08-14] MEDS: INSULIN LISPRO 100 UNIT/ML 3 ML VIAL SUBCUT SCH ×3 (12:14→22:39)
[2020-08-14] MEDS: DOCUSATE SODIUM 100 MG CAPSULE PO SCH (12:15)
[2020-08-14] MEDS: CARVEDILOL 6.25 MG TABLET PO SCH ×2 (12:15→22:38)
--- NOTE | 2020-08-14 13:49 | RADIOLOGY REPORT (SQ) ---
EXAM DESCRIPTION: NM HIDA SCAN IMAGES COMPLETED DATE/TIME: 08/14/2020 1:36 pm REASON FOR STUDY: s/p hepaticjejunostomy for cbd obstruction COMPARISON: CT dated 08/06/2020 RADIONUCLIDE AND DOSE: DOSAGE RADIONUCLIDE: 5.41 millicuries Tc99m Mebrofenin. DOSAGE MORPHINE: Not required. The route of agent administration: Intravenous TECHNIQUE: Serial imaging right upper quadrant up to 60 minutes following injection of radionuclide. Patient imaged AP and Right Lateral. LIMITATIONS: Images were obtained for 54 minutes. Patient refused additional imaging. FINDINGS: LIVER: Normal visualization without areas of photopenia. INTRA-HEPATIC BILE DUCTS: Temporal visualization normal. No dilatation. COMMON BILE DUCT: Normal without dilatation or delayed visualization. GALLBLADDER: Prior cholecystectomy. OTHER: No other significant finding. IMPRESSION: Prior cholecystectomy. No extravasation. TECHNICAL DOCUMENTATION: JOB ID: [id number] [employer]- All Rights Reserved Reading location - IP/workstation name: [email or web address]
[2020-08-14] MEDS ORDERED: ACETAMINOPHEN 325 MG TABLET PO PRN (14:13)
--- NOTE | 2020-08-14 15:23 | ST Inp Modified Barium Swallow ---
Medical Diagnosis - ICD-10 Tx Diagnosis Coding (1) Dysphagia ICD-10 Code(s): R13.10 - DYSPHAGIA, UNSPECIFIED (2) Dysphagia, pharyngeal phase ICD-10 Code(s): R13.13 - DYSPHAGIA, PHARYNGEAL PHASE (3) Dysphagia, pharyngoesophageal phase ICD-10 Code(s): R13.14 - DYSPHAGIA, PHARYNGOESOPHAGEAL PHASE (4) Acute hypoxemic respiratory failure ICD-10 Code(s): J96.01 - ACUTE RESPIRATORY FAILURE WITH HYPOXIA (5) Acute renal failure superimposed on stage 5 chronic kidney disease, not on chronic dialysis ICD-10 Code(s): N17.9 - ACUTE KIDNEY FAILURE, UNSPECIFIED; N18.5 - CHRONIC KIDNEY DISEASE, STAGE 5 (6) Chronic cholecystitis due to cholelithiasis with choledocholithiasis ICD-10 Code(s): K80.64 - CALCULUS OF GB AND BILE DUCT W CHRONIC CHOLECYST W/O OBST ST Inpatient [facility] [place] - General Date: 08/14/20 Date of Onset: 07/28/20 - History History Obtained From: Other - EMR -: Medical - Patient admitted 07/28/2020 with fatigue, anorexia, nausea, vomitin g, diarrhea & near syncope. 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 On 08/01/2020, underwent laparoscopic cholecystectomy which was converted to open cholecystectomy with Kapil-en-Y hepatic jejunostomy. He was admitted to ICU and had acute hypoxemic respiratory failure & hypotension post-op. On 08/14/2020, patient complained of coughing after eating and speech therapy ordered. CURRENT DIAGNOSES: Chronic cholecystitis due to cholelithiasis with choledocholithiasis, acute hypoxemic respiratory failure - resolved, on room air, acute renal failure superimposed on stage 5 chronic kidney disease, biliary anastomotic leak, chronic anemia, essential hypertension, metabolic acidosis, sepsis following abdominal surgery - resolved, type 2 diabetes, Vitamin K deficiency coagulation disorder. Medications: Medications Reviewed Allergies: No known allergies - Subjective Current Nutritional Means: PO - full liquid diet Pain: Patient reports, 0/5 - Objective Assessment: Upright, Left Lateral - Food Trials Food Trials Used: Thin liquids, Honey-thickened liquids, [place] thick liquids, Pureed The Patient: fed by ST - Assessment Labial Function: Within Functional Limits Lingual Function: Within Functional Limits Mandibular Function: Within Functional Limits Dentition: Edentulous - has dentures but not wearing - Pharyngeal Stage Initiation of Pharyngeal Stage: Delayed Decreased Laryngeal Elevation: Yes Reduced Velo-Pharyngeal Closure: no Reduced Pressure Generation: Yes Reduced Tongue Base Retraction: Yes Reduced Thyro-Hyiod Approximation: Yes Reduced Epiglottic Excursion: Yes Reduced Pharyngeal Peristalsis: Yes Multiple Swallows With: Ineffective Clearance Post Swallow Residuals in Valleculae: Mild Post Swallow Residuals in Pyriforms: Significant Pahryngeal Stage Comments: Overall movement was reduced, particularly pharyngeal stripping wave. Patient demonstrated significant pooling in pyriforms with pooled material aspirated post-swallow. Patient aspirated ALL consistencies after the swallow. - Esophageal Stage Cricophageal Function: Impaired - Impression/Summary Tracheal Aspiration: yes - Recommend NPO except for ice chips following good oral care. Patient aspirated with aspirated material well below vocal folds; significant portion of bolus aspirated. Patient demonstrated inconsistent cough response to aspiration; appears to trigger cough only for larger boluses. Patient's cough did partially clear aspirated material from trachea, however only able to move to pharynx where material again aspirated. Patient Presents With: Pharyngeal stage dysph., Severe Risk of Aspiration: Severe Risk of Nutritional Compromise: Severe Risk Due To: Patient was observed to aspirate on all consistencies presented (thin, nectar, honey, & puree). Solids were not trialed as ST judged unsafe. Patient is at high risk of aspiration pneumonia due to limited mobility (assist for all out-of-bed mobility), unable to self fed, unable to provide own oral care. - Recommendations NPO: yes - ST recommends NPO except for ice chips and patient needs good oral care prior to ice chips Dysphagia Therapy with TIRE BAGGER: Yes - Patient would benefit from speech therapy both while admitted and after discharge from hospital. Other Recommendations: ST communicated results and recommendations to Dr. Cuevas who plans to follow up with patient and his family to discuss implications of NPO status including possible PEG placement. ST feels patient is therapy candidate but will likely need alternative means of nutrition and dysphagia therapy following hospital discharge. ST informed patient of results of study, including aspiration and risk of pneumonia due to aspiration, as well as recommendation that patient note eat by mouth due to high risk. Patient nodded agreement and did not have any questions. ST plans to follow up with both patient and family if able to provide further education including education on oral care and initate dysphagia therapy if able. - Time Total Time: 15 Total Timed Minutes: 0
--- NOTE | 2020-08-14 15:47 | RADIOLOGY REPORT (SQ) ---
EXAM DESCRIPTION: COOKIE SWALLOW IMAGES COMPLETED DATE/TIME: 08/14/2020 3:12 pm REASON FOR STUDY: coughing with PO COMPARISON: None. TECHNIQUE: Videofluoroscopic swallowing examination was performed in conjunction with speech patholo gy. Videofluoroscopic imaging was obtained and reviewed and these are the findings: RADIATION DOSE: 2.2 minutes of fluoroscopy was used. 1 images saved to PACS. LIMITATIONS: None FINDINGS: The patient was brought into the fluoro room and placed upright on a modified barium swall ow chair. The patient was then given multiple consistencies mixed with barium to swallow under live fluoroscopic video guidance. According to the Speech Pathologist there was laryngeal penetration and tracheal aspiration of all consistencies given. Patient demonstrates silent aspiration with minimal delayed cough. IMPRESSION: SEVERE LARYNGEAL PENETRATION AND TRACHEAL ASPIRATION OF ALL CONSISTENCIES GIVEN. PLEASE SEE SPEECH PATHOLOGIST REPORT FOR OTHER FINDINGS AND RECOMMENDATIONS. COMMENT: Quality ID [id number]: Final reports for procedures using fluoroscopy that document radiation exp osure indices, or exposure time and number of fluorographic images (if radiation exposure indices are not available) TECHNICAL DOCUMENTATION: JOB ID: [id number] 2010 [employer]- All Rights Reserved Reading location - IP/workstation name: [email or web address] [id number]
[2020-08-15] MEDS: METOCLOPRAMIDE HCL INJ/PF 10 MG/2 ML SDV IV SCH ×4 (03:33→21:42)
[2020-08-15] MEDS ORDERED: MORPHINE SULFATE 10 MG/ML INJ IV ONE (05:00)
[2020-08-15] MEDS: HEPARIN SOD (PORCINE) 5,000 UNIT/ML 1 ML VIAL SUBCUT SCH ×3 (05:56→21:43)
--- NOTE | 2020-08-15 08:39 | PDOC PROGRESS REPORT ---
Subjective Progress Note for:: 08/15/20 Subjective:: failed swallowing study Reason For Visit: CHOLEDOCHOLITHIASIS, NEAR SYNCOPE, NAUSEA Physical Exam Vital Signs: Temp Pulse Resp BP Pulse Ox 97.8 F 89 15 152/79 H 97 08/15/20 07:52 08/15/20 07:52 08/15/20 07:52 08/15/20 07:52 08/15/20 07:52 Intake & Output 08/14/20 08/15/20 08/16/20 06:59 06:59 06:59 Intake Total 720 0 Output Total 185 730 Balance 535 -730 Weight 55.9 kg 57.1 kg General appearance: PRESENT: no acute distress Head exam: PRESENT: normocephalic Eye exam: PRESENT: EOMI Teeth exam: PRESENT: poor dentation Neck exam: PRESENT: full ROM Respiratory exam: PRESENT: clear to auscultation deven Cardiovascular exam: PRESENT: RRR Pulses: PRESENT: normal radial pulses, normal femoral pulses Vascular exam: PRESENT: normal capillary refill Breast: PRESENT: Normal GI/Abdominal exam: PRESENT: soft Rectal exam: PRESENT: deferred Gentrourinary exam: PRESENT: indwelling catheter Extremities exam: PRESENT: full ROM Neurological exam: PRESENT: awake Psychiatric exam: PRESENT: other - dementia Skin exam: PRESENT: dry Results Laboratory Results: 08/14/20 05:47 08/14/20 05:47 07/28/20 18:30 Troponin I 0.023 Impressions: Abdomen Ultrasound 07/28/20 20:00 IMPRESSION: 1. Gallstones, gallbladder wall thickening, intrahepatic biliary dilatation and nonspecific possible inflammatory material surrounding the gallbladder. These findings are suspicious for acute cholecystitis. Gray's sign was negative but this does not exclude acute cholecystitis. 2. Common bile duct is only mildly dilated. . Question common bile duct stones. 3. Fatty liver. Low position of an atrophic right kidney in the pelvis. Abdomen MRI 07/29/20 04:06 IMPRESSION: 1.1 cm calcific density appears to localize to the common bile duct. The gallbladder is largely decompressed and mild intrahepatic biliary di latation persists. Associated right upper quadrant inflammatory changes. Other chronic and incidental findings as detailed above. Catheter Placement 07/30/20 00:00 IMPRESSION: IMAGE(S) OBTAINED DURING PROCEDURE. Cholangiogram 08/01/20 00:00 IMPRESSION: IMAGE(S) OBTAINED DURING PROCEDURE. Fluoroscopy 08/01/20 00:00 IMPRESSION: IMAGE(S) OBTAINED DURING PROCEDURE. Abdomen/Pelvis CT 08/06/20 00:00 IMPRESSION: 1. POST CHOLECYSTECTOMY. PERCUTANEOUS SURGICAL DRAIN PRESENT. SMALL AMOUNT OF FREE FLUID IN THE RIGHT UPPER QUADRANT. NO FINDINGS TO SUGGEST DISCRETE ABSCESS. 2. OTHER CHRONIC CHANGES INCLUDING PANCREATIC CALCIFICATIONS, PELVIC RIGHT KIDNEY, AND LEFT INGUINAL HERNIA WITH A SMALL PORTION OF THE BLADDER PROTRUDING INTO THE PROXIMAL INGUINAL CANAL. NO OTHER SIGNIFICANT OR ACUTE ABDOMINAL PROCESS. Chest CT 08/06/20 00:00 IMPRESSION: LARGE BILATERAL PLEURAL EFFUSIONS. LOWER LOBE AIRSPACE DISEASE MOST LIKELY DUE TO COMPRESSIVE ATELECTASIS ALTHOUGH PNEUMONIA CANNOT BE EXCLUDED. NO OTHER SIGNIFICANT FINDING ON NON-CONTRASTED CHEST CT. Guidance Fluoroscopy 08/13/20 00:00 IMPRESSION: IMAGE(S) OBTAINED DURING PROCEDURE. Chest X-Ray 08/13/20 14:10 IMPRESSION: No pneumothorax. New venous access catheter in expected location. Hepatobiliary Scan Nuclear Medicine 08/14/20 00:00 IMPRESSION: Prior cholecystectomy. No extravasation. Modified Barium Swallow 08/14/20 00:00 IMPRESSION: SEVERE LARYNGEAL PENETRATION AND TRACHEAL ASPIRATION OF ALL CONSISTENCIES GIVEN. PLEASE SEE SPEECH PATHOLOGIST REPORT FOR OTHER FINDINGS AND RECOMMENDATIONS. Assessment & Plan - Time Anticipated Discharge Disposition: Retirement Facility Anticipated Discharge Timeframe: unk - Plan Summary Plan Summary: hida scan yesteday did not show a leak, and flow into the small bowel pt failed swallowing study yesterday he cannot have a peg tube due to previous gastric surgery will require an nasal dobhoff tube or tpn at this point
[2020-08-15] MEDS: INSULIN LISPRO 100 UNIT/ML 3 ML VIAL SUBCUT SCH ×4 (08:44→23:34)
--- NOTE | 2020-08-15 10:10 | PDOC PROGRESS REPORT ---
Subjective Progress Note for:: 08/15/20 Subjective:: Per nephrology: "Patient is known to me with chronic kidney disease stage IV/V secondary to diabetic nephropathy with baseline creatinine around 4.0 associated with marques betes mellitus type 2 who I last saw in August 2019, hypertension, and hyperlipidemia who was admitted on July 28 with fatigue, Monday, anorexia, nausea, vomiting, diarrhea and near syncope causing fall during day of admission. Initial evaluation in the ED showed the patient was hypertensive wi th leukocytosis and elevated bilirubin and transaminase including alkaline phosphatase. CT of the abdomen showed cholelithiasis with questionable choledocholithiasis. On 07/30/2020 he underwent ERCP by Dr. 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 On 08/01/2020 he underwent laparoscopic cholecystectomy which was converted to open cholecystectomy with Kapil-en-Y hepatic jejunostomy by Dr. Schaffer. Postoperatively he was admitted in the ICU for closer monitoring. He had acute hypoxemic respiratory failure and hypotension postoperatively. He was successfully extubated though. He required 4 units of packed RBC, 1 unit FFP and 3 L of lactated Ringer's and 500 mL of normal saline. Apparently there was significant bile staining of the retroperitoneum behind the pancreas and the duodenum. He was started on metronidazole, ceftriaxone, vancomycin and fluconazole. Over the weekend the patient was monitored while in the ICU and surprisingly did well." 08/04/2020 Patient popped out of ICU overnight. Creatinine lower today. Blood cultures negative. Patient states he has not had a bowel movement yet and would like a bowel regimen started. He does have some abdominal pain from his recent surgery but other than that he has no new complaints. General surgery is following. 08/05/2020 Patient repeatedly states he feels fine and is doing well, however his bicarb is acutely dropped to 8 and his anion gap is 26. I am concerned that he may be developing an intra-abdominal infection from his recent surgery and I have ordered a CT of his chest/abdomen/pelvis to also help rule out a developing pneumonia. I discussed case with Dr. Schaffer as well as Dr. Hill. Patient did not get much dialysis as his blood pressure was quite low. Nephrology recommended giving albumin and have also started as needed midodrine to be given 1 hour prior to dialysis sessions. 08/06/2020 Patient doing quite poorly overnight on into this morning reportedly. Hemodynamically he remained stable thankfully. His hemoglobin acutely dropped and I transfused him 1 unit PRBC. He was given multiple units FFP overnight for coagulopathy and Dr. Wilfrido gates has given him multiple doses of vitamin K which seems to have brought his INR down considerably. Patient had what looked to be silvestre blood in his abdominal drain bulb. He likely has vitamin K deficiency from prolonged hospitalization and poor nutrition. I discussed the case with Dr. Schaffer who did not want the patient to get an NG tube as he is concerned about the anastomoses being damaged by this. It may be necessary to place an NG tube in order to give the patient adequate nutrition. Alternatively, we could attempt TPN though this is not a long-term solution. Creatinine lower today. Discussed case with nephrology who will have the patient dialyzed today after getting transfused. Transfer patient to [facility], low threshold for ICU transfer. I am concerned that if patient does not improve in the near future he may not survive this admission. He is extremely frail and weak. 08/07/2020 Patient seems to be doing a bit better today after being transfused blood and FFP yesterday and also getting vitamin K. His INR sharply corrected after getting the vitamin K. His blood pressure and hemoglobin are higher today. He is breathing comfortably on room air. Patient has extremely poor nutrition as he has barely eaten anything over the past several days. I discussed with nursing potentially getting him PPN/TPN though nephrology does not want him to have this. Also discussed possibility of an NG tube and tube feeds. 08/08/2020 Patient still continues to improve today. He has a bit of more color in his face today. He is having multiple bowel movements now and his INR has been fully corrected down to 1. Creatinine is notably lower. General surgery following. Hemoglobin rising 08/09/2020 Patient is having some coarse coughing and gurgling when he speaks. Discussed w [facility] nursing to check on his swallowing ability although he has been reportedly eating very well over the past few days. Blood pressure is mildly elevated. 08/10/2020 Patient states he is doing significantly better today from respiratory standpoint. He does sound less congested today compared to prior exams. General surgery is following and planning to place a permacath within the next few days. Patient is continued on antibiotics although these can likely complete very soon. Blood pressure elevated but will likely improve with dialysis. Patient has no new complaints. He will need to go to SNF at discharge. 08/11/2020. No acute events overnight. Saw patient this morning was comfort ably sleeping but easily arousable, does not appear to be in any acute distress, has no complaint today, pending permacath placement by surgery. 08/12/2020. No acute events overnight. Patient is more awake and alert today, does not appear to be any apparent distress, is tolerating his feeds, denies any fever, chills, nausea, vomiting. 08/14/2020. No acute events overnight. Saw patient this morning while receiving his hemodialysis, comfortably sitting in recliner, in no apparent distress, alert and oriented, offloaded with physical examination and answering questions appropriately, patient had his permacath placed and plan is to remove his Timur catheter, he is also been followed by surgery and plan is to have a HIDA scan today, patient is p.o. tolerant, stating that when he eats he coughs afterwards, speech therapy evaluation is pending, denies any fever, chills, nausea, vomiting. 08/15/2020. No acute events overnight. Unfortunately patient failed his modified barium swallow and recommendation is only ice chips, while he is receiving aggressive speech therapy, I contacted his sister who makes his medical decisions, I informed her that the best option at this time would be a PEG tube placement but unfortunately patient has not recommended PEG tube placement as he just had an abdominal surgery, other options would be either Dobbhoff tube or TPN, but unfortunately patient is not a candidate for TPN as he is end-stage renal and as per Dr. Hill his filer and sander he should not have any central lines in his upper extremities as he may need them for fistula for long-term hemodialysis. Family has consented for Dobbhoff tube while patient is receiving speech therapy and hope of recovering his dysphagia. Patient sister still wants Mr. Mancuso to be discharged home to stay with her. Reason For Visit: CHOLEDOCHOLITHIASIS, NEAR SYNCOPE, NAUSEA Physical Exam Vital Signs: Temp Pulse Resp BP Pulse Ox 97.8 F 89 15 152/79 H 97 08/15/20 07:52 08/15/20 07:52 08/15/20 07:52 08/15/20 07:52 08/15/20 07:52 Intake & Output 08/14/20 08/15/20 08/16/20 06:59 06:59 06:59 Intake Total 720 0 Output Total 185 730 Balance 535 -730 Weight 55.9 kg 57.1 kg General appearance: PRESENT: no acute distress, well-developed, well-nourished Head exam: PRESENT: atraumatic, normocephalic Neck exam: ABSENT: carotid bruit, JVD, lymphadenopathy, thyromegaly Respiratory exam: PRESENT: clear to auscultation deven. ABSENT: rales, rhonchi, wheezes Cardiovascular exam: PRESENT: RRR, other - AUBREY drain in place, appears patent.. ABSENT: diastolic murmur, rubs, systolic murmur GI/Abdominal exam: PRESENT: normal bowel sounds, soft. ABSENT: distended, guarding, mass, organolmegaly, rebound, tenderness Neurological exam: PRESENT: alert, awake, oriented to person, oriented to place, CN II-XII grossly intact. ABSENT: motor sensory deficit Results Laboratory Results: 08/14/20 05:47 08/14/20 05:47 07/28/20 18:30 Troponin I 0.023 Impressions: Abdomen Ultrasound 07/28/20 20:00 IMPRESSION: 1. Gallstones, gallbladder wall thickening, intrahepatic biliary dilatation and nonspecific possible inflammatory material surrounding the gallbladder. These findings are suspicious for acute cholecystitis. Gray's sign was negative but this does not exclude acute cholecystitis. 2. Common bile duct is only mildly dilated. . Question common bile duct stones. 3. Fatty liver. Low position of an atrophic right kidney in the pelvis. Abdomen MRI 07/29/20 04:06 IMPRESSION: 1.1 cm calcific density appears to localize to the common bile duct. The gallbladder is largely decompressed and mild intrahepatic biliary dilatation persists. Associated right upper quadrant inflammatory changes. Other chronic and incidental findings as detailed above. Catheter Placement 07/30/20 00:00 IMPRESSION: IMAGE(S) OBTAINED DURING PROCEDURE. Cholangiogram 08/01/20 00:00 IMPRESSION: IMAGE(S) OBTAINED DURING PROCEDURE. Fluoroscopy 08/01/20 00:00 IMPRESSION: IMAGE(S) OBTAINED DURING PROCEDURE. Abdomen/Pelvis CT 08/06/20 00:00 IMPRESSION: 1. POST CHOLECYSTECTOMY. PERCUTANEOUS SURGICAL DRAIN PRESENT. SMALL AMOUNT OF FREE FLUID IN THE RIGHT UPPER QUADRANT. NO FINDINGS TO SUGGEST DISCRETE ABSCESS. 2. OTHER CHRONIC CHANGES INCLUDING PANCREATIC CALCIFICATIONS, PELVIC RIGHT KIDNEY, AND LEFT INGUINAL HERNIA WITH A SMALL PORTION OF THE BLADDER PROTRUDING INTO THE PROXIMAL INGUINAL CANAL. NO OTHER SIGNIFICANT OR ACUTE ABDOMINAL PROCESS. Chest CT 08/06/20 00:00 IMPRESSION: LARGE BILATERAL PLEURAL EFFUSIONS. LOWER LOBE AIRSPACE DISEASE MOST LIKELY DUE TO COMPRESSIVE ATELECTASIS ALTHOUGH PNEUMONIA CANNOT BE EXCLUDED. NO OTHER SIGNIFICANT FINDING ON NON-CONTRASTED CHEST CT. Guidance Fluoroscopy 08/13/20 00:00 IMPRESSION: IMAGE(S) OBTAINED DURING PROCEDURE. Chest X-Ray 08/13/20 14:10 IMPRESSION: No pneumothorax. New venous access catheter in expected location. Hepatobiliary Scan Nuclear Medicine 08/14/20 00:00 IMPRESSION: Prior cholecystectomy. No extravasation. Modified Barium Swallow 08/14/20 00:00 IMPRESSION: SEVERE LARYNGEAL PENETRATION AND TRACHEAL ASPIRATION OF ALL CONSISTENCIES GIVEN. PLEASE SEE SPEECH PATHOLOGIST REPORT FOR OTHER FINDINGS AND RECOMMENDATIONS. Assessment and Plan - Diagnosis (1) Dysphagia Qualifiers: Dysphagia type: oropharyngeal phase Qualified Code(s): R13.12 - Dysphagia, oropharyngeal phase Is this a current diagnosis for this admission?: Yes Plan: Patient noted to be coughing after p.o. intake. Speech therapy was consulted and modified barium swallow showed that patient was has significant aspiration. Recommendation is for outpatient aggressive speech therapy good oral hygiene and only ice chips at the moment. Unfortunate patient is not a candidate for PEG tube placement due to recent abdominal surgery. Nephrology is not recommending TPN as patient is end-stage renal disease and may need his upper extremity veins for hemodialysis. We will place Dobbhoff tube and consult dietitian for dietary recommendation. Meanwhile patient can have ice chips with good oral hygiene and aspiration precautions. (2) Chronic cholecystitis due to cholelithiasis with choledocholithiasis Is this a current diagnosis for this admission?: Yes Plan: Status post attempted laparoscopic cholecystectomy which was converted to open cholecystectomy with Kapil-en-Y hepatic jejunostomy 08/01/2020. On admission ERCP attempted by Dr. dahl found to have gallstone eroding through duct, procedure aborted. Pathology report negative for any dysplasia or malignancy. CT abdomen/pelvis to reevaluate abdomen 08/05: Did not show any acute findings other than some small amount of fluid collection, no abscess Received a complecte course of IV antibiotics. Stopped vancomycin as there is no evidence of MRSA infection General surgery and GI following. Liver enzymes are trending down. Continue pain management supportive care, monitor in and out, monitor volume status and electrolytes. (3) Acute hypoxemic respiratory failure Is this a current diagnosis for this admission?: Yes Plan: Resolved. SPO2 WNL on RA. (4) Acute renal failure superimposed on stage 5 chronic kidney disease, not on chronic dialysis Qualifiers: Acute renal failure type: unspecified Qualified Code(s): N17.9 - Acute k idney failure, unspecified; N18.5 - Chronic kidney disease, stage 5 Is this a current diagnosis for this admission?: Yes Plan: Euvolemic. Electrolytes WNL. Renal function gradually improving. oh HD MWF, Permcarth placement Nephrology on board. Monitor in and out, monitor electrolytes and volume status, replace electrolytes as needed. Avoid nephrotoxic meds. (5) Biliary anastomotic leak Is this a current diagnosis for this admission?: Yes Plan: From hepaticojejunostomy. Controlled. HIDA scan negative for any leaks. Continue current management. Surgery following. (6) Chronic anemia Is this a current diagnosis for this admission?: Yes Plan: Likely due to surgery and chronic renal failure complicated by acute on chronic due to blood loss anemia from coagulopathy Status post 1 unit PRBC and multipleFFP transfusions on 08/06 Receiving Procrit by nephrology. H&H is stable. No acute sign of bleeding. Monitor H&H. Supportive transfusions. (7) Essential hypertension Is this a current diagnosis for this admission?: Yes Plan: Appears euvolemic, normotensive except for low BPs during hemodialysis as reported by previous physician. Continue current medication. Adjust meds as needed. As needed IV hydralazine and metoprolol. Outpatient PCP and nephrology follow-up. (8) Metabolic acidosis Is this a current diagnosis for this admission?: Yes Plan: Resolved. (9) Sepsis following intra-abdominal surgery Is this a current diagnosis for this admission?: Yes Plan: Resolved. (10) Type 2 diabetes mellitus Qualifiers: Diabetes mellitus intermediate card tender insulin use: without intermediate card tender use Diabetes mellitus complication status: with kidney complications Diabetes mellitus complication detail: with chronic kidney disease Chronic kidney disease stage: stage 5, not on chronic dialysis Qualified Code(s): E11.22 - Type 2 diabetes mellitus with diabetic chronic kidney disease; N18.5 - Chronic kidney disease, stage 5 Is this a current diagnosis for this admission?: Yes Plan: Diabetic diet, sliding scale insulin, correctional insulin, Accu-Chek, hypoglycemia protocol. Adjust doses as needed, resume home meds upon discharge. Outpatient PCP follow- up. (11) Vitamin K deficiency coagulation disorder Is this a current diagnosis for this admission?: Yes Plan: As per previous pressures in his note Given vitamin K Hematology consulted FFP given INR with good response to above interventions INR WNL on repeat labs. - Time Anticipated Discharge Disposition: Home with Home Health Anticipated Discharge Timeframe: within 72 hours
[2020-08-15] MEDS: CARVEDILOL 6.25 MG TABLET PO SCH ×2 (10:15→21:43)
[2020-08-15] MEDS ORDERED: PHARMACY COMMUNICATION ORDER MC NR (13:00)
[2020-08-15] MEDS ORDERED: DIPHENHYDRAMINE HCL 25 MG/10 ML UDC NG PRN (13:30)
[2020-08-15] MEDS ORDERED: ACETAMINOPHEN 325 MG TABLET NG PRN (13:30)
--- NOTE | 2020-08-15 16:22 | RADIOLOGY REPORT (SQ) ---
EXAM DESCRIPTION: KUB/ABDOMEN (SINGLE VIEW) IMAGES COMPLETED DATE/TIME: 08/15/2020 1:48 pm REASON FOR STUDY: Check Placement of NG Tube COMPARISON: Abdominal radiographs 05/09/2018 NUMBER OF VIEWS: One view. TECHNIQUE: Supine radiographic image of the abdomen acquired. LIMITATIONS: None. FINDINGS: BOWEL GAS PATTERN: Normal bowel gas pattern. No dilated loops. A small amount of enteric contrast is present in the gastric lumen. CALCIFICATIONS: No suspicious calcifications. SOFT TISSUES: No gross mass or suggestion of organomegaly. HARDWARE: An enteric tube is present with the tip projecting in the region of the gastric antrum. BONES: No acute fracture. No worrisome bone lesions. OTHER: No other significant finding. The lung bases are clear. IMPRESSION: Enteric tube with the tip projecting in the region of the gastric antrum. Nonobstructive bowel gas pattern. Clear lung bases. TECHNICAL DOCUMENTATION: JOB ID: [id number] [employer]- All Rights Reserved Reading location - IP/workstation name: [email or web address]
[2020-08-15] MEDS: METOPROLOL TARTRATE PF/INJ 5 MG/5 ML SDV IV PRN (17:03)
[2020-08-15] MEDS: MORPHINE SULFATE 10 MG/ML INJ IV PRN (18:46)
[2020-08-16] MEDS: MORPHINE SULFATE 10 MG/ML INJ IV PRN ×4 (00:07→19:52)
[2020-08-16] MEDS: METOCLOPRAMIDE HCL INJ/PF 10 MG/2 ML SDV IV SCH ×4 (03:07→21:27)
[2020-08-16] MEDS: HEPARIN SOD (PORCINE) 5,000 UNIT/ML 1 ML VIAL SUBCUT SCH ×3 (06:34→21:27)
[2020-08-16] MEDS: INSULIN LISPRO 100 UNIT/ML 3 ML VIAL SUBCUT SCH ×4 (06:34→23:53)
[2020-08-16 06:42] LABS: HEMATOCRIT 26.3 % (37.9-51.0); HEMOGLOBIN 8.7 g/dL (13.5-17.0); MEAN CORPUSCULAR HEMOGLOBIN 30.4 pg (27.0-33.4); MEAN CORPUSCULAR VOLUME 92 fl (80-97); PLATELET COUNT 245 10^3/uL (150-450); RED BLOOD COUNT 2.85 10^6/uL (4.35-5.55); RED CELL DISTRIBUTION WIDTH 15.9 % (11.5-14.0); WHITE BLOOD COUNT 5.8 10^3/uL (4.0-10.5)
[2020-08-16 07:20] LABS: ALBUMIN 2.5 g/dL (3.5-5.0); ALKALINE PHOSPHATASE 260 U/L (38-126); ANION GAP 11 (5-19); ASPARTATE AMINO TRANSFERASE 20 U/L (17-59); BILIRUBIN,DIRECT 0.7 mg/dL (0.0-0.4); BILIRUBIN,TOTAL 0.8 mg/dL (0.2-1.3); BLOOD UREA NITROGEN 41 mg/dL (7-20); CALCIUM 8.1 mg/dL (8.4-10.2); CARBON DIOXIDE 29 mmol/L (22-30); CHLORIDE 96 mmol/L (98-107); GLUCOSE 236 mg/dL (75-110); PHOSPHORUS 6.8 mg/dL (2.5-4.5); POTASSIUM 3.8 mmol/L (3.6-5.0)
[2020-08-16] MEDS: CARVEDILOL 6.25 MG TABLET PO SCH ×2 (09:11→21:28)
[2020-08-16] MEDS: DOCUSATE SODIUM 100 MG CAPSULE PO SCH (09:17)
--- NOTE | 2020-08-16 09:48 | PDOC PROGRESS REPORT ---
Subjective Progress Note for:: 08/16/20 Subjective:: Per nephrology: "Patient is known to me with chronic kidney disease stage IV/V secondary to diabetic nephropathy with baseline creatinine around 4.0 associated with marques betes mellitus type 2 who I last saw in August 2019, hypertension, and hyperlipidemia who was admitted on July 28 with fatigue, Monday, anorexia, nausea, vomiting, diarrhea and near syncope causing fall during day of admission. Initial evaluation in the ED showed the patient was hypertensive wi th leukocytosis and elevated bilirubin and transaminase including alkaline phosphatase. CT of the abdomen showed cholelithiasis with questionable choledocholithiasis. On 07/30/2020 he underwent ERCP by Dr. 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 On 08/01/2020 he underwent laparoscopic cholecystectomy which was converted to open cholecystectomy with Kapil-en-Y hepatic jejunostomy by Dr. Schaffer. Postoperatively he was admitted in the ICU for closer monitoring. He had acute hypoxemic respiratory failure and hypotension postoperatively. He was successfully extubated though. He required 4 units of packed RBC, 1 unit FFP and 3 L of lactated Ringer's and 500 mL of normal saline. Apparently there was significant bile staining of the retroperitoneum behind the pancreas and the duodenum. He was started on metronidazole, ceftriaxone, vancomycin and fluconazole. Over the weekend the patient was monitored while in the ICU and surprisingly did well." 08/04/2020 Patient popped out of ICU overnight. Creatinine lower today. Blood cultures negative. Patient states he has not had a bowel movement yet and would like a bowel regimen started. He does have some abdominal pain from his recent surgery but other than that he has no new complaints. General surgery is following. 08/05/2020 Patient repeatedly states he feels fine and is doing well, however his bicarb is acutely dropped to 8 and his anion gap is 26. I am concerned that he may be developing an intra-abdominal infection from his recent surgery and I have ordered a CT of his chest/abdomen/pelvis to also help rule out a developing pneumonia. I discussed case with Dr. Schaffer as well as Dr. Hill. Patient did not get much dialysis as his blood pressure was quite low. Nephrology recommended giving albumin and have also started as needed midodrine to be given 1 hour prior to dialysis sessions. 08/06/2020 Patient doing quite poorly overnight on into this morning reportedly. Hemodynamically he remained stable thankfully. His hemoglobin acutely dropped and I transfused him 1 unit PRBC. He was given multiple units FFP overnight for coagulopathy and Dr. Wilfrido gates has given him multiple doses of vitamin K which seems to have brought his INR down considerably. Patient had what looked to be silvestre blood in his abdominal drain bulb. He likely has vitamin K deficiency from prolonged hospitalization and poor nutrition. I discussed the case with Dr. Schaffer who did not want the patient to get an NG tube as he is concerned about the anastomoses being damaged by this. It may be necessary to place an NG tube in order to give the patient adequate nutrition. Alternatively, we could attempt TPN though this is not a long-term solution. Creatinine lower today. Discussed case with nephrology who will have the patient dialyzed today after getting transfused. Transfer patient to [facility], low threshold for ICU transfer. I am concerned that if patient does not improve in the near future he may not survive this admission. He is extremely frail and weak. 08/07/2020 Patient seems to be doing a bit better today after being transfused blood and FFP yesterday and also getting vitamin K. His INR sharply corrected after getting the vitamin K. His blood pressure and hemoglobin are higher today. He is breathing comfortably on room air. Patient has extremely poor nutrition as he has barely eaten anything over the past several days. I discussed with nursing potentially getting him PPN/TPN though nephrology does not want him to have this. Also discussed possibility of an NG tube and tube feeds. 08/08/2020 Patient still continues to improve today. He has a bit of more color in his face today. He is having multiple bowel movements now and his INR has been fully corrected down to 1. Creatinine is notably lower. General surgery following. Hemoglobin rising 08/09/2020 Patient is having some coarse coughing and gurgling when he speaks. Discussed w [facility] nursing to check on his swallowing ability although he has been reportedly eating very well over the past few days. Blood pressure is mildly elevated. 08/10/2020 Patient states he is doing significantly better today from respiratory standpoint. He does sound less congested today compared to prior exams. General surgery is following and planning to place a permacath within the next few days. Patient is continued on antibiotics although these can likely complete very soon. Blood pressure elevated but will likely improve with dialysis. Patient has no new complaints. He will need to go to SNF at discharge. 08/11/2020. No acute events overnight. Saw patient this morning was comfort ably sleeping but easily arousable, does not appear to be in any acute distress, has no complaint today, pending permacath placement by surgery. 08/12/2020. No acute events overnight. Patient is more awake and alert today, does not appear to be any apparent distress, is tolerating his feeds, denies any fever, chills, nausea, vomiting. 08/14/2020. No acute events overnight. Saw patient this morning while receiving his hemodialysis, comfortably sitting in recliner, in no apparent distress, alert and oriented, offloaded with physical examination and answering questions appropriately, patient had his permacath placed and plan is to remove his Timur catheter, he is also been followed by surgery and plan is to have a HIDA scan today, patient is p.o. tolerant, stating that when he eats he coughs afterwards, speech therapy evaluation is pending, denies any fever, chills, nausea, vomiting. 08/15/2020. No acute events overnight. Unfortunately patient failed his modified barium swallow and recommendation is only ice chips, while he is receiving aggressive speech therapy, I contacted his sister who makes his medical decisions, I informed her that the best option at this time would be a PEG tube placement but unfortunately patient has not recommended PEG tube placement as he just had an abdominal surgery, other options would be either Dobbhoff tube or TPN, but unfortunately patient is not a candidate for TPN as he is end-stage renal and as per Dr. Hill his grease remover he should not have any central lines in his upper extremities as he may need them for fistula for long-term hemodialysis. Family has consented for Dobbhoff tube while patient is receiving speech therapy and hope of recovering his dysphagia. Patient sister still wants Mr. Mancuso to be discharged home to stay with her. 08/16/2020. No acute events overnight. Saw patient this morning comfortably sleeping, easily arousable, cooperative with physical examination, denies any fever, chills, nausea, vomiting, diarrhea, constipation or any urinary symptoms. Patient has a nasogastric tube for his feeds and is stating is not bothering him much. His back pain has improved since being started on low-dose morphine. Reason For Visit: CHOLEDOCHOLITHIASIS, NEAR SYNCOPE, NAUSEA Physical Exam Vital Signs: Temp Pulse Resp BP Pulse Ox 98.5 F 100 20 128/77 H 100 08/16/20 08:48 08/16/20 07:25 08/16/20 07:25 08/16/20 07:25 08/16/20 07:25 Intake & Output 08/15/20 08/16/20 08/17/20 06:59 06:59 06:59 Intake Total 0 484 Output Total 730 644 Balance -730 -160 Weight 57.1 kg 54.6 kg General appearance: PRESENT: no acute distress, well-developed, well-nourished, other - Nasogastric tube in place Head exam: PRESENT: atraumatic, normocephalic Respiratory exam: PRESENT: clear to auscultation deven. ABSENT: rales, rhonchi, wheezes Cardiovascular exam: PRESENT: RRR. ABSENT: diastolic murmur, rubs, systolic murmur GI/Abdominal exam: PRESENT: normal bowel sounds, soft, other - AUBREY tube in place, filled with bilious fluid, no sign of leakage.. ABSENT: distended, guarding, mass, organolmegaly, rebound, tenderness Neurological exam: PRESENT: alert, awake, oriented to person, oriented to place, oriented to time, oriented to situation, CN II-XII grossly intact. ABSENT: motor sensory deficit Results Laboratory Results: 08/16/20 06:24 08/16/20 06:24 08/16/20 08/16/20 06:24 06:24 WBC 5.8 RBC 2.85 L Hgb 8.7 L Hct 26.3 L MCV 92 MCH 30.4 MCHC 33.0 RDW 15.9 H Plt Count 245 Sodium 135.5 L Potassium 3.8 Chloride 96 L Carbon Dioxide 29 Anion Gap 11 BUN 41 H Creatinine 4.71 H Est GFR ( Amer) 15 L Glucose 236 H Calcium 8.1 L Phosphorus 6.8 H Magnesium 2.2 Total Bilirubin 0.8 AST 20 Alkaline Phosphatase 260 H Total Protein 5.0 L Albumin 2.5 L 07/28/20 18:30 Troponin I 0.023 Impressions: Abdomen Ultrasound 07/28/20 20:00 IMPRESSION: 1. Gallstones, gallbladder wall thickening, intrahepatic biliary dilatation and nonspecific possible inflammatory material surrounding the gallbladder. These findings are suspicious for acute cholecystitis. Gray's sign was negative but this does not exclude acute cholecystitis. 2. Common bile duct is only mildly dilated. . Question common bile duct stones. 3. Fatty liver. Low position of an atrophic right kidney in the pelvis. Abdomen MRI 07/29/20 04:06 IMPRESSION: 1.1 cm calcific density appears to localize to the common bile duct. The gallbladder is largely decompressed and mild intrahepatic biliary dilatation persists. Associated right upper quadrant inflammatory changes. Other chronic and incidental findings as detailed above. Catheter Placement 07/30/20 00:00 IMPRESSION: IMAGE(S) OBTAINED DURING PROCEDURE. Cholangiogram 08/01/20 00:00 IMPRESSION: IMAGE(S) OBTAINED DURING PROCEDURE. Fluoroscopy 08/01/20 00:00 IMPRESSION: IMAGE(S) OBTAINED DURING PROCEDURE. Abdomen/Pelvis CT 08/06/20 00:00 IMPRESSION: 1. POST CHOLECYSTECTOMY. PERCUTANEOUS SURGICAL DRAIN PRESENT. SMALL AMOUNT OF FREE FLUID IN THE RIGHT UPPER QUADRANT. NO FINDINGS TO SUGGEST DISCRETE ABSCESS. 2. OTHER CHRONIC CHANGES INCLUDING PANCREATIC CALCIFICATIONS, PELVIC RIGHT KIDNEY, AND LEFT INGUINAL HERNIA WITH A SMALL PORTION OF THE BLADDER PROTRUDING INTO THE PROXIMAL INGUINAL CANAL. NO OTHER SIGNIFICANT OR ACUTE ABDOMINAL PROCESS. Chest CT 08/06/20 00:00 IMPRESSION: LARGE BILATERAL PLEURAL EFFUSIONS. LOWER LOBE AIRSPACE DISEASE MOST LIKELY DUE TO COMPRESSIVE ATELECTASIS ALTHOUGH PNEUMONIA CANNOT BE EXCLUDED. NO OTHER SIGNIFICANT FINDING ON NON-CONTRASTED CHEST CT. Guidance Fluoroscopy 08/13/20 00:00 IMPRESSION: IMAGE(S) OBTAINED DURING PROCEDURE. Chest X-Ray 08/13/20 14:10 IMPRESSION: No pneumothorax. New venous access catheter in expected location. Hepatobiliary Scan Nuclear Medicine 08/14/20 00:00 IMPRESSION: Prior cholecystectomy. No extravasation. Modified Barium Swallow 08/14/20 00:00 IMPRESSION: SEVERE LARYNGEAL PENETRATION AND TRACHEAL ASPIRATION OF ALL CONSISTENCIES GIVEN. PLEASE SEE SPEECH PATHOLOGIST REPORT FOR OTHER FINDINGS AND RECOMMENDATIONS. KUB X-Ray 08/15/20 12:55 IMPRESSION: Enteric tube with the tip projecting in the region of the gastric antrum. Nonobstructive bowel gas pattern. Clear lung bases. Assessment and Plan - Diagnosis (1) Dysphagia Qualifiers: Dysphagia type: oropharyngeal phase Qualified Code(s): R13.12 - Dysphagia, oropharyngeal phase Is this a current diagnosis for this admission?: Yes Plan: Status post NG tube placement. Pending Dobbhoff tube placement. Patient was noted to be coughing after p.o. intake. Speech therapy was consulted and modified barium swallow showed that patient was has significant aspiration. Recommendation is for outpatient aggressive speech therapy good oral hygiene and only ice chips at the moment. Unfortunate patient is not a candidate for PEG tube placement due to recent abdominal surgery. Nephrology is not recommending TPN as patient is end-stage renal disease and may need his upper extremity veins for hemodialysis. Meanwhile patient can have ice chips with good oral hygiene and aspiration precautions. NG tube placed in place. Pending Dobbhoff tube placement tomorrow by radiology. Dietitian consulted. (2) Chronic cholecystitis due to cholelithiasis with choledocholithiasis Is this a current diagnosis for this admission?: Yes Plan: Status post attempted laparoscopic cholecystectomy which was converted to open cholecystectomy with Kapil-en-Y hepatic jejunostomy 08/01/2020. On admission ERCP attempted by Dr. dahl found to have gallstone eroding through duct, procedure aborted. Pathology report negative for any dysplasia or malignancy. CT abdomen/pelvis to reevaluate abdomen 08/05: Did not show any acute findings other than some small amount of fluid collection, no abscess HIDA scan no sign of leakage. Received a complecte course of IV antibiotics. Stopped vancomycin as there is no evidence of MRSA infection General surgery and GI following. Liver enzymes are trending down. Continue pain management supportive care, monitor in and out, monitor volume sta tus and electrolytes. (3) Acute hypoxemic respiratory failure Is this a current diagnosis for this admission?: Yes Plan: Resolved. SPO2 WNL on RA. (4) Acute renal failure superimposed on stage 5 chronic kidney disease, not on chronic dialysis Qualifiers: Acute renal failure type: unspecified Qualified Code(s): N17.9 - Acute kidney failure, unspecified; N18.5 - Chronic kidney disease, stage 5 Is this a current diagnosis for this admission?: Yes Plan: Euvolemic. Electrolytes WNL. Renal function gradually improving. oh HD MWF, Permcarth placement Nephrology on board. Monitor in and out, monitor electrolytes and volume status, replace electrolytes as needed. Avoid nephrotoxic meds. (5) Biliary anastomotic leak Is this a current diagnosis for this admission?: Yes Plan: From hepaticojejunostomy. Controlled. HIDA scan negative for any leaks. Continue current management. Surgery following. (6) Chronic anemia Is this a current diagnosis for this admission?: Yes Plan: Likely due to surgery and chronic renal failure complicated by acute on chronic due to blood loss anemia from coagulopathy Status post 1 unit PRBC and multipleFFP transfusions on 08/06 Receiving Procrit by nephrology. H&H is stable. No acute sign of bleeding. Monitor H&H. Supportive transfusions. (7) Essential hypertension Is this a current diagnosis for this admission?: Yes Plan: Appears euvolemic, normotensive except for low BPs during hemodialysis as reported by previous physician. Continue current medication. Adjust meds as needed. As needed IV hydralazine and metoprolol. Outpatient PCP and nephrology follow-up. (8) Metabolic acidosis Is this a current diagnosis for this admission?: Yes Plan: Resolved. (9) Sepsis following intra-abdominal surgery Is this a current diagnosis for this admission?: Yes Plan: Resolved. (10) Type 2 diabetes mellitus Qualifiers: Diabetes mellitus assisted insulin use: without terminal carman use Diabetes mellitus complication status: with kidney complications Diabetes mellitus complication detail: with chronic kidney disease Chronic kidney disease stage: stage 5, not on chronic dialysis Qualified Code(s): E11.22 - Type 2 diabetes mellitus with diabetic chronic kidney disease; N18.5 - Chronic kidney disease, stage 5 Is this a current diagnosis for this admission?: Yes Plan: Diabetic diet, sliding scale insulin, correctional insulin, Accu-Chek, hypoglycemia protocol. Adjust doses as needed, resume home meds upon discharge. Outpatient PCP follow- up. (11) Vitamin K deficiency coagulation disorder Is this a current diagnosis for this admission?: Yes Plan: As per previous pressures in his note Given vitamin K Hematology consulted FFP given INR with good response to above interventions INR WNL on repeat labs. - Plan Summary Summary: Given history of dysphagia and risk of aspiration pneumonia patient will benefit from having a hospital bed at home as he will require the head of the bed to be elevated more than 30 degrees most of the time. - Time Time Spent with patient: 25-34 minutes Medications reviewed and adjusted accordingly: Yes Anticipated Discharge Disposition: Home with Home Health Anticipated Discharge Timeframe: within 48 hours
[2020-08-16] MEDS ORDERED: GUAIFENESIN 600 MG TABLET.SA PO SCH (10:00)
[2020-08-16] MEDS: INSULIN GLARGINE,HUM.REC.ANLOG 1,000 UNIT/10 ML VIAL SUBCUT SCH (10:43)
[2020-08-16] MEDS: GUAIFENESIN SYRP 200 MG/10 ML UDC PO SCH ×2 (11:37→21:27)
--- NOTE | 2020-08-16 13:22 | PDOC PROGRESS REPORT ---
Subjective Progress Note for:: 08/16/20 Subjective:: no changes now iwth ng for feeding Reason For Visit: CHOLEDOCHOLITHIASIS, NEAR SYNCOPE, NAUSEA Physical Exam Vital Signs: Temp Pulse Resp BP Pulse Ox 98.5 F 100 20 128/77 H 100 08/16/20 08:48 08/16/20 07:25 08/16/20 07:25 08/16/20 07:25 08/16/20 07:25 Intake & Output 08/15/20 08/16/20 08/17/20 06:59 06:59 06:59 Intake Total 0 484 30 Output Total 730 644 Balance -730 -160 30 Weight 57.1 kg 54.6 kg General appearance: PRESENT: no acute distress Head exam: PRESENT: normocephalic Eye exam: PRESENT: EOMI Ear exam: PRESENT: normal external ear exam Mouth exam: PRESENT: moist Teeth exam: PRESENT: poor dentation Neck exam: PRESENT: full ROM Respiratory exam: PRESENT: clear to auscultation deven Cardiovascular exam: PRESENT: RRR Pulses: PRESENT: normal radial pulses, normal femoral pulses Breast: PRESENT: Normal GI/Abdominal exam: PRESENT: soft Rectal exam: PRESENT: deferred Gentrourinary exam: PRESENT: indwelling catheter Extremities exam: PRESENT: full ROM Musculoskeletal exam: PRESENT: normal inspection Neurological exam: PRESENT: awake, other - dementia Psychiatric exam: PRESENT: other - dementia Skin exam: PRESENT: dry Results Laboratory Results: 08/16/20 06:24 08/16/20 06:24 08/16/20 08/16/20 06:24 06:24 WBC 5.8 RBC 2.85 L Hgb 8.7 L Hct 26.3 L MCV 92 MCH 30.4 MCHC 33.0 RDW 15.9 H Plt Count 245 Sodium 135.5 L Potassium 3.8 Chloride 96 L Carbon Dioxide 29 Anion Gap 11 BUN 41 H Creatinine 4.71 H Est GFR ( Amer) 15 L Glucose 236 H Calcium 8.1 L Phosphorus 6.8 H Magnesium 2.2 Total Bilirubin 0.8 AST 20 Alkaline Phosphatase 260 H Total Protein 5.0 L Albumin 2.5 L 07/28/20 18:30 Troponin I 0.023 Impressions: Abdomen Ultrasound 07/28/20 20:00 IMPRESSION: 1. Gallstones, gallbladder wall thickening, intrahepatic biliary dilatation and nonspecific possible inflammatory material surrounding the gallbladder. These findings are suspicious for acute cholecystitis. Gray's sign was negative but this does not exclude acute cholecystitis. 2. Common bile duct is only mildly dilated. . Question common bile duct stones. 3. Fatty liver. Low position of an atrophic right kidney in the pelvis. Abdomen MRI 07/29/20 04:06 IMPRESSION: 1.1 cm calcific density appears to localize to the common bile duct. The gallbladder is largely decompressed and mild intrahepatic biliary dilatation persists. Associated right upper quadrant inflammatory changes. Other chronic and incidental findings as detailed above. Catheter Placement 07/30/20 00:00 IMPRESSION: IMAGE(S) OBTAINED DURING PROCEDURE. Cholangiogram 08/01/20 00:00 IMPRESSION: IMAGE(S) OBTAINED DURING PROCEDURE. Fluoroscopy 08/01/20 00:00 IMPRESSION: IMAGE(S) OBTAINED DURING PROCEDURE. Abdomen/Pelvis CT 08/06/20 00:00 IMPRESSION: 1. POST CHOLECYSTECTOMY. PERCUTANEOUS SURGICAL DRAIN PRESENT. SMALL AMOUNT OF FREE FLUID IN THE RIGHT UPPER QUADRANT. NO FINDINGS TO SUGGEST DISCRETE ABSCESS. 2. OTHER CHRONIC CHANGES INCLUDING PANCREATIC CALCIFICATIONS, PELVIC RIGHT KIDNEY, AND LEFT INGUINAL HERNIA WITH A SMALL PORTION OF THE BLADDER PROTRUDING INTO THE PROXIMAL INGUINAL CANAL. NO OTHER SIGNIFICANT OR ACUTE ABDOMINAL PROCESS. Chest CT 08/06/20 00:00 IMPRESSION: LARGE BILATERAL PLEURAL EFFUSIONS. LOWER LOBE AIRSPACE DISEASE MOST LIKELY DUE TO COMPRESSIVE ATELECTASIS ALTHOUGH PNEUMONIA CANNOT BE EXCLUDED. NO OTHER SIGNIFICANT FINDING ON NON-CONTRASTED CHEST CT. Guidance Fluoroscopy 08/13/20 00:00 IMPRESSION: IMAGE(S) OBTAINED DURING PROCEDURE. Chest X-Ray 08/13/20 14:10 IMPRESSION: No pneumothorax. New venous access catheter in expected location. Hepatobiliary Scan Nuclear Medicine 08/14/20 00:00 IMPRESSION: Prior cholecystectomy. No extravasation. Modified Barium Swallow 08/14/20 00:00 IMPRESSION: SEVERE LARYNGEAL PENETRATION AND TRACHEAL ASPIRATION OF ALL CONSISTENCIES GIVEN. PLEASE SEE SPEECH PATHOLOGIST REPORT FOR OTHER FINDINGS AND RECOMMENDATIONS. KUB X-Ray 08/15/20 12:55 IMPRESSION: Enteric tube with the tip projecting in the region of the gastric antrum. Nonobstructive bowel gas pattern. Clear lung bases. Assessment & Plan - Time Anticipated Discharge Disposition: Assisted Facility Anticipated Discharge Timeframe: unk - Plan Summary Plan Summary: no changes now with ng for tube feeds to have dobhoff placed on monday still with femi drain of some bile despite normal hida suspcect accessory duct still draining pt having nl bms lft normaiizing recommend can be discharged to residential from surgery standpt.
[2020-08-16] MEDS: MELATONIN 5 MG TABLET PO SCH (21:28)
[2020-08-17] MEDS: MORPHINE SULFATE 10 MG/ML INJ IV PRN (03:01)
[2020-08-17] MEDS: METOCLOPRAMIDE HCL INJ/PF 10 MG/2 ML SDV IV SCH ×4 (03:01→21:20)
[2020-08-17] MEDS ORDERED: HEPARIN SOD (PORCINE) 1,000 UNIT/ML 10 ML VIAL IV PRN (05:00)
[2020-08-17] MEDS ORDERED: EPOETIN ALFA-EPBX 2,000 UNIT, EPOETIN ALFA-EPBX 3,000 UNIT, EPOETIN ALFA-EPBX 20,000 UN... IV PRN ×4 (05:00)
[2020-08-17] MEDS: INSULIN LISPRO 100 UNIT/ML 3 ML VIAL SUBCUT SCH ×3 (05:51→18:40)
[2020-08-17] MEDS: HEPARIN SOD (PORCINE) 5,000 UNIT/ML 1 ML VIAL SUBCUT SCH ×3 (05:52→21:21)
[2020-08-17 06:43] LABS: HEMOGLOBIN 8.2 g/dL (13.5-17.0); MEAN CORPUSCULAR HEMOGLOBIN 30.4 pg (27.0-33.4); MEAN CORPUSCULAR HGB CONC 32.8 g/dL (32.0-36.0); MEAN CORPUSCULAR VOLUME 93 fl (80-97); PLATELET COUNT 229 10^3/uL (150-450); RED BLOOD COUNT 2.69 10^6/uL (4.35-5.55); WHITE BLOOD COUNT 7.6 10^3/uL (4.0-10.5)
[2020-08-17 07:13] LABS: ANION GAP 10 (5-19); BLOOD UREA NITROGEN 53 mg/dL (7-20); CALCIUM 8.3 mg/dL (8.4-10.2); CARBON DIOXIDE 32 mmol/L (22-30); CHLORIDE 93 mmol/L (98-107); GLUCOSE 255 mg/dL (75-110); PHOSPHORUS 8.5 mg/dL (2.5-4.5); POTASSIUM 3.8 mmol/L (3.6-5.0)
[2020-08-17] MEDS: MIDODRINE HCL 5 MG TABLET NG PRN (07:27)
--- NOTE | 2020-08-17 10:12 | PDOC PROGRESS REPORT ---
Subjective Progress Note for:: 08/17/20 Subjective:: Patient is receiving dialysis this morning while I am seeing him. He is awake and answering questions. He was having abdominal pain earlier this morning so he was given morphine prior to dialysis and his blood pressure was relatively low when he came in. Midodrine was given and his blood pressure is now better. Patient denies any current abdominal pain. He admits some mild shortness of breath but no chest pains. Unfortunately the patient failed modified barium swallow over the weekend so he is now being fed via NG tube with Nepro and he is tolerating it. His urine output has been ranging anywhere between 50 to 150 mL in 24 hours for the last 72 hours. Currently he is tolerating dialysis with minimal ultrafiltration due to blood pressure and is currently being monitored closely. Reason For Visit: CHOLEDOCHOLITHIASIS, NEAR SYNCOPE, NAUSEA Physical Exam Vital Signs: Temp Pulse Resp BP Pulse Ox 97.9 F 101 H 20 111/67 98 08/17/20 09:12 08/17/20 07:00 08/17/20 03:30 08/17/20 03:30 08/17/20 03:30 Intake & Output 08/16/20 08/17/20 08/18/20 06:59 06:59 06:59 Intake Total 484 1484 Output Total 644 293 Balance -160 1191 Weight 54.6 kg 55.3 kg Vitals during dialysis: Blood pressure 138/71, heart rate of 93, blood flow rate of 300 mL/min and dialysate flow rate of 600 mL/min. Exam: General appearance: PRESENT: no acute distress, cooperative, fairly developed and fairly nourished Head exam: PRESENT: atraumatic, normocephalic Eye exam: PRESENT: conjunctiva mildly pale, PERRLA. ABSENT: scleral icterus Neck exam: ABSENT: JVD Respiratory exam: PRESENT: Diminished breath sounds. ABSENT: crackles, rales, rhonchi, unlabored, wheezes Cardiovascular exam: PRESENT: Regular rate rhythm -+S1, +S2. ABSENT: diastolic murmur, systolic murmur GI/Abdominal exam: PRESENT: Very hypoactive bowel sounds, soft. Minimally distended, AUBREY drain with bile-stained fluid, no obvious leaks from the dressing ABSENT: guarding, mass, tenderness Extremities exam: ABSENT: No edema Neurological exam: PRESENT: alert, awake, oriented to person, place and time. Skin exam: PRESENT: dry, warm, pallor Cardiovascular exam: PRESENT: +S1, +S2 GI/Abdominal exam: PRESENT: normal bowel sounds, soft, tenderness - Mildly tender in the right upper quadrant.. ABSENT: organomegaly Results Laboratory Results: 08/17/20 06:06 08/17/20 06:06 08/17/20 08/17/20 06:06 06:06 WBC 7.6 RBC 2.69 L Hgb 8.2 L Hct 25.0 L MCV 93 MCH 30.4 MCHC 32.8 RDW 16.0 H Plt Count 229 Sodium 134.9 L Potassium 3.8 Chloride 93 L Carbon Dioxide 32 H Anion Gap 10 BUN 53 H Creatinine 5.84 H Est GFR ( Amer) 12 L Glucose 255 H Calcium 8.3 L Phosphorus 8.5 H Magnesium 2.4 H 07/28/20 18:30 Troponin I 0.023 Impressions: Abdomen Ultrasound 07/28/20 20:00 IMPRESSION: 1. Gallstones, gallbladder wall thickening, intrahepatic biliary dilatation and nonspecific possible inflammatory material surrounding the gallbladder. These findings are suspicious for acute cholecystitis. Gray's sign was negative but this does not exclude acute cholecystitis. 2. Common bile duct is only mildly dilated. . Question common bile duct stones. 3. Fatty liver. Low position of an atrophic right kidney in the pelvis. Abdomen MRI 07/29/20 04:06 IMPRESSION: 1.1 cm calcific density appears to localize to the common bile duct. The gallbladder is largely decompressed and mild intrahepatic biliary dilatation persists. Associated right upper quadrant inflammatory changes. Other chronic and incidental findings as detailed above. Catheter Placement 07/30/20 00:00 IMPRESSION: IMAGE(S) OBTAINED DURING PROCEDURE. Cholangiogram 08/01/20 00:00 IMPRESSION: IMAGE(S) OBTAINED DURING PROCEDURE. Fluoroscopy 08/01/20 00:00 IMPRESSION: IMAGE(S) OBTAINED DURING PROCEDURE. Abdomen/Pelvis CT 08/06/20 00:00 IMPRESSION: 1. POST CHOLECYSTECTOMY. PERCUTANEOUS SURGICAL DRAIN PRESENT. SMALL AMOUNT OF FREE FLUID IN THE RIGHT UPPER QUADRANT. NO FINDINGS TO SUGGEST DISCRETE ABSCESS. 2. OTHER CHRONIC CHANGES INCLUDING PANCREATIC CALCIFICATIONS, PELVIC RIGHT KIDNEY, AND LEFT INGUINAL HERNIA WITH A SMALL PORTION OF THE BLADDER PROTRUDING INTO THE PROXIMAL INGUINAL CANAL. NO OTHER SIGNIFICANT OR ACUTE ABDOMINAL PROCESS. Chest CT 08/06/20 00:00 IMPRESSION: LARGE BILATERAL PLEURAL EFFUSIONS. LOWER LOBE AIRSPACE DISEASE MOST LIKELY DUE TO COMPRESSIVE ATELECTASIS ALTHOUGH PNEUMONIA CANNOT BE EXCLUDED. NO OTHER SIGNIFICANT FINDING ON NON-CONTRASTED CHEST CT. Guidance Fluoroscopy 08/13/20 00:00 IMPRESSION: IMAGE(S) OBTAINED DURING PROCEDURE. Chest X-Ray 08/13/20 14:10 IMPRESSION: No pneumothorax. New venous access catheter in expected location. Hepatobiliary Scan Nuclear Medicine 08/14/20 00:00 IMPRESSION: Prior cholecystectomy. No extravasation. Modified Barium Swallow 08/14/20 00:00 IMPRESSION: SEVERE LARYNGEAL PENETRATION AND TRACHEAL ASPIRATION OF ALL CONSISTENCIES GIVEN. PLEASE SEE SPEECH PATHOLOGIST REPORT FOR OTHER FINDINGS AND RECOMMENDATIONS. KUB X-Ray 08/15/20 12:55 IMPRESSION: Enteric tube with the tip projecting in the region of the gastric antrum. Nonobstructive bowel gas pattern. Clear lung bases. Assessment & Plan - Diagnosis (1) CKD (chronic kidney disease), stage V Is this a current diagnosis for this admission?: Yes Plan: Secondary to diabetic nephropathy with known proteinuria. I believe the patient has now reached ESRD and would require chronic long-term dialysis treatment. When I last saw him a year ago he was on the verge of going to ESRD with all complications associated with it. Patient understood that he is going to need long-term chronic dialysis treatment. He now have a functioning PermCath and outpatient dialysis has been arranged by the case management. We will do dialysis today for 3 hours, using the patient's trialysis catheter, with 3 potassium bath, blood flow rate of 300 mL per minute, dialysate flow rate of 600 mL per minute, ultrafiltration 0.5-1 L as tolerated, no heparin and Retacrit with 25,000 units during dialysis intravenously. Patient is currently being monitored carefully. (2) Acute renal failure superimposed on stage 5 chronic kidney disease, not on chronic dialysis Qualifiers: Acute renal failure type: unspecified Qualified Code(s): N17.9 - Acute kidney failure, unspecified; N18.5 - Chronic kidney disease, stage 5 Is this a current diagnosis for this admission?: Yes Plan: Patient's kidney function has gotten worse this admission due to his acute illness which puts him more to ESRD from CKD 5. Plan as above. (3) Metabolic acidosis Is this a current diagnosis for this admission?: Yes Plan: Resolved. (4) Chronic cholecystitis due to cholelithiasis with choledocholithiasis Is this a current diagnosis for this admission?: Yes Plan: Status post cholecystectomy initially laparoscopic converted to open procedure on 08/01/2020. Status post ERCP on 07/30/2020. Surgery following. HIDA scan negative. (5) Sepsis following intra-abdominal surgery Is this a current diagnosis for this admission?: Yes Plan: He was given a dose of Zosyn initially. Completed ceftriaxone, and metronidazole. Vancomycin discontinued. Resolved. (6) Hypoalbuminemia Is this a current diagnosis for this admission?: Yes Plan: On Nepro tube feeding via NG tube. (7) Anemia in chronic kidney disease (CKD) Qualifiers: Chronic kidney disease stage: stage 4 (severe) Qualified Code(s): N18.4 - Chronic kidney disease, stage 4 (severe); D63.1 - Anemia in chronic kidney disease Is this a current diagnosis for this admission?: Yes Plan: Patient has chronic anemia of chronic kidney disease and has refused to take NOELLE therapy for the past 1 to 2 years. Most recent iron is also low at 41.6, TSAT 19 and ferritin of 543. He was given blood transfusions. On Retacrit during dialysis treatment. (8) Type 2 diabetes mellitus Qualifiers: Diabetes mellitus half-way insulin use: without terminal gauger use Diabetes mellitus complication status: with kidney complications Diabetes mellitus complication detail: with chronic kidney disease Chronic kidney disease stage: stage 5, not on chronic dialysis Qualified Code(s): E11.22 - Type 2 diabetes mellitus with diabetic chronic kidney disease; N18.5 - Chronic kidney disease, stage 5 Is this a current diagnosis for this admission?: Yes Plan: Suboptimally controlled. (9) Chronic kidney disease-mineral and bone disorder Is this a current diagnosis for this admission?: Yes Plan: Phosphorus is 8.5 with PTH of 318.2 and normal corrected calcium. Once the patient is taking medications orally he would need phosphorus binder and vitamin D analogs. We will hold for now. (10) Dysphagia Qualifiers: Dysphagia type: oropharyngeal phase Qualified Code(s): R13.12 - Dysphagia, oropharyngeal phase Is this a current diagnosis for this admission?: Yes Plan: On tube feedings via NG tube. (11) Pleural effusion Is this a current diagnosis for this admission?: Yes Plan: Resolved on recent chest x-ray. (12) Coagulopathy Is this a current diagnosis for this admission?: Yes Plan: Resolved. (13) Essential hypertension Is this a current diagnosis for this admission?: Yes Plan: On carvedilol but occasionally requiring midodrine specially on dialysis including today. (14) Acute hypoxemic respiratory failure Is this a current diagnosis for this admission?: Yes Plan: Resolved. - Time Time with patient: 15-25 minutes
[2020-08-17] MEDS: GUAIFENESIN SYRP 200 MG/10 ML UDC PO SCH ×2 (10:53→22:04)
[2020-08-17] MEDS: CARVEDILOL 6.25 MG TABLET PO SCH ×2 (10:54→22:04)
[2020-08-17] MEDS: INSULIN GLARGINE,HUM.REC.ANLOG 1,000 UNIT/10 ML VIAL SUBCUT SCH (10:54)
--- NOTE | 2020-08-17 12:28 | RADIOLOGY REPORT (SQ) ---
EXAM DESCRIPTION: INTRO/GI TUBE W/FLUORO; INTRO LONG GI TUBE (MILLAB) IMAGES COMPLETED DATE/TIME: 08/17/2020 11:33 am REASON FOR STUDY: Dysphagia; DYSPHAGIA, DOBHOFF INSERTION COMPARISON: None. TECHNIQUE: Live fluoroscopic guidance. RADIATION DOSE: 2.2 minutes of fluoroscopy was used. 1 images saved to PACS. LIMITATIONS: None. FINDINGS: The patient was brought to the fluoroscopy room and placed supine on the fluoroscopy table . A NJ-tube was advanced through the right nostril through the stomach and ending in the 3rd portion of the duodenum. Approximately 20 mL of non ionic contrast was injected through the catheter to conf irm placement. A fluoroscopic spot film was saved to PACs demonstrating catheter tip within the 3rd t o 4th portion of the duodenum. IMPRESSION: SUCCESSFUL FLUOROSCOPIC GUIDED PLACEMENT OF A NJ TUBE. DOBHOFF TUBE IS AT THE 90 CM MAR K AT THE RIGHT NARES. COMMENT: Quality ID 145: Final reports for procedures using fluoroscopy that document radiation exp osure indices, or exposure time and number of fluorographic images (if radiation exposure indices are not available) TECHNICAL DOCUMENTATION: JOBD ID: [id number] 2010 [employer]- All Rights Reserved Reading location - IP/workstation name: [email or web address] [id number]
--- NOTE | 2020-08-17 12:28 | RADIOLOGY REPORT (SQ) ---
EXAM DESCRIPTION: INTRO/GI TUBE W/FLUORO; INTRO LONG GI TUBE (MILLAB) IMAGES COMPLETED DATE/TIME: 08/17/2020 11:33 am REASON FOR STUDY: Dysphagia; DYSPHAGIA, DOBHOFF INSERTION COMPARISON: None. TECHNIQUE: Live fluoroscopic guidance. RADIATION DOSE: 2.2 minutes of fluoroscopy was used. 1 images saved to PACS. LIMITATIONS: None. FINDINGS: The patient was brought to the fluoroscopy room and placed supine on the fluoroscopy table . A NJ-tube was advanced through the right nostril through the stomach and ending in the 3rd portion of the duodenum. Approximately 20 mL of non ionic contrast was injected through the catheter to conf irm placement. A fluoroscopic spot film was saved to PACs demonstrating catheter tip within the 3rd t o 4th portion of the duodenum. IMPRESSION: SUCCESSFUL FLUOROSCOPIC GUIDED PLACEMENT OF A NJ TUBE. DOBHOFF TUBE IS AT THE 90 CM MAR K AT THE RIGHT NARES. COMMENT: Quality ID 145: Final reports for procedures using fluoroscopy that document radiation exp osure indices, or exposure time and number of fluorographic images (if radiation exposure indices are not available) TECHNICAL DOCUMENTATION: JOBD ID: [id number] 2010 [employer]- All Rights Reserved Reading location - IP/workstation name: [email or web address] [id number]
--- NOTE | 2020-08-17 17:29 | PDOC PROGRESS REPORT ---
Subjective Progress Note for:: 08/17/20 Subjective:: Per nephrology: "Patient is known to me with chronic kidney disease stage IV/V secondary to diabetic nephropathy with baseline creatinine around 4.0 associated with marques betes mellitus type 2 who I last saw in August 2019, hypertension, and hyperlipidemia who was admitted on July 28 with fatigue, Monday, anorexia, nausea, vomiting, diarrhea and near syncope causing fall during day of admission. Initial evaluation in the ED showed the patient was hypertensive wi th leukocytosis and elevated bilirubin and transaminase including alkaline phosphatase. CT of the abdomen showed cholelithiasis with questionable choledocholithiasis. On 07/30/2020 he underwent ERCP by Dr. 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 On 08/01/2020 he underwent laparoscopic cholecystectomy which was converted to open cholecystectomy with Kapil-en-Y hepatic jejunostomy by Dr. Schaffer. Postoperatively he was admitted in the ICU for closer monitoring. He had acute hypoxemic respiratory failure and hypotension postoperatively. He was successfully extubated though. He required 4 units of packed RBC, 1 unit FFP and 3 L of lactated Ringer's and 500 mL of normal saline. Apparently there was significant bile staining of the retroperitoneum behind the pancreas and the duodenum. He was started on metronidazole, ceftriaxone, vancomycin and fluconazole. Over the weekend the patient was monitored while in the ICU and surprisingly did well." 08/04/2020 Patient popped out of ICU overnight. Creatinine lower today. Blood cultures negative. Patient states he has not had a bowel movement yet and would like a bowel regimen started. He does have some abdominal pain from his recent surgery but other than that he has no new complaints. General surgery is following. 08/05/2020 Patient repeatedly states he feels fine and is doing well, however his bicarb is acutely dropped to 8 and his anion gap is 26. I am concerned that he may be developing an intra-abdominal infection from his recent surgery and I have ordered a CT of his chest/abdomen/pelvis to also help rule out a developing pneumonia. I discussed case with Dr. Schaffer as well as Dr. Hill. Patient did not get much dialysis as his blood pressure was quite low. Nephrology recommended giving albumin and have also started as needed midodrine to be given 1 hour prior to dialysis sessions. 08/06/2020 Patient doing quite poorly overnight on into this morning reportedly. Hemodynamically he remained stable thankfully. His hemoglobin acutely dropped and I transfused him 1 unit PRBC. He was given multiple units FFP overnight for coagulopathy and Dr. Wilfrido gates has given him multiple doses of vitamin K which seems to have brought his INR down considerably. Patient had what looked to be silvestre blood in his abdominal drain bulb. He likely has vitamin K deficiency from prolonged hospitalization and poor nutrition. I discussed the case with Dr. Schaffer who did not want the patient to get an NG tube as he is concerned about the anastomoses being damaged by this. It may be necessary to place an NG tube in order to give the patient adequate nutrition. Alternatively, we could attempt TPN though this is not a long-term solution. Creatinine lower today. Discussed case with nephrology who will have the patient dialyzed today after getting transfused. Transfer patient to [facility], low threshold for ICU transfer. I am concerned that if patient does not improve in the near future he may not survive this admission. He is extremely frail and weak. 08/07/2020 Patient seems to be doing a bit better today after being transfused blood and FFP yesterday and also getting vitamin K. His INR sharply corrected after getting the vitamin K. His blood pressure and hemoglobin are higher today. He is breathing comfortably on room air. Patient has extremely poor nutrition as he has barely eaten anything over the past several days. I discussed with nursing potentially getting him PPN/TPN though nephrology does not want him to have this. Also discussed possibility of an NG tube and tube feeds. 08/08/2020 Patient still continues to improve today. He has a bit of more color in his face today. He is having multiple bowel movements now and his INR has been fully corrected down to 1. Creatinine is notably lower. General surgery following. Hemoglobin rising 08/09/2020 Patient is having some coarse coughing and gurgling when he speaks. Discussed w [facility] nursing to check on his swallowing ability although he has been reportedly eating very well over the past few days. Blood pressure is mildly elevated. 08/10/2020 Patient states he is doing significantly better today from respiratory standpoint. He does sound less congested today compared to prior exams. General surgery is following and planning to place a permacath within the next few days. Patient is continued on antibiotics although these can likely complete very soon. Blood pressure elevated but will likely improve with dialysis. Patient has no new complaints. He will need to go to SNF at discharge. 08/11/2020. No acute events overnight. Saw patient this morning was comfort ably sleeping but easily arousable, does not appear to be in any acute distress, has no complaint today, pending permacath placement by surgery. 08/12/2020. No acute events overnight. Patient is more awake and alert today, does not appear to be any apparent distress, is tolerating his feeds, denies any fever, chills, nausea, vomiting. 08/14/2020. No acute events overnight. Saw patient this morning while receiving his hemodialysis, comfortably sitting in recliner, in no apparent distress, alert and oriented, offloaded with physical examination and answering questions appropriately, patient had his permacath placed and plan is to remove his Timur catheter, he is also been followed by surgery and plan is to have a HIDA scan today, patient is p.o. tolerant, stating that when he eats he coughs afterwards, speech therapy evaluation is pending, denies any fever, chills, nausea, vomiting. 08/15/2020. No acute events overnight. Unfortunately patient failed his modified barium swallow and recommendation is only ice chips, while he is receiving aggressive speech therapy, I contacted his sister who makes his medical decisions, I informed her that the best option at this time would be a PEG tube placement but unfortunately patient has not recommended PEG tube placement as he just had an abdominal surgery, other options would be either Dobbhoff tube or TPN, but unfortunately patient is not a candidate for TPN as he is end-stage renal and as per Dr. Hill his visual basic .net developer he should not have any central lines in his upper extremities as he may need them for fistula for long-term hemodialysis. Family has consented for Dobbhoff tube while patient is receiving speech therapy and hope of recovering his dysphagia. Patient sister still wants Mr. Mancuso to be discharged home to stay with her. 08/16/2020. No acute events overnight. Saw patient this morning comfortably sleeping, easily arousable, cooperative with physical examination, denies any fever, chills, nausea, vomiting, diarrhea, constipation or any urinary symptoms. Patient has a nasogastric tube for his feeds and is stating is not bothering him much. His back pain has improved since being started on low-dose morphine. 08/17/2020. No acute events overnight. Patient is status post Dobbhoff tube placed, tolerating feeds, patient denies any fever, chills, nausea, vomiting, diarrhea, constipation or any urinary symptoms. Patient does not want to be transferred to SNF, he would like to go home with his sister who agrees with him. Patient is ready to be discharged home however discharge planners are working on arranging his home needs before he can safely discharged home. Reason For Visit: CHOLEDOCHOLITHIASIS, NEAR SYNCOPE, NAUSEA Physical Exam Vital Signs: Temp Pulse Resp BP Pulse Ox 97.9 F 90 20 111/67 98 08/17/20 09:12 08/17/20 14:00 08/17/20 03:30 08/17/20 03:30 08/17/20 03:30 Intake & Output 08/16/20 08/17/20 08/18/20 06:59 06:59 06:59 Intake Total 484 1484 440 Output Total 644 293 600 Balance -160 1191 -160 Weight 54.6 kg 55.3 kg General appearance: PRESENT: no acute distress, well-developed, well-nourished Head exam: PRESENT: atraumatic, normocephalic Mouth exam: PRESENT: other - Left lower lobe scab which unfortunately came out while people as well receiving suctioning. Sign of active bleeding or infection. Dobbhoff tube in place. Respiratory exam: PRESENT: clear to auscultation deven. ABSENT: rales, rhonchi, wheezes Cardiovascular exam: PRESENT: RRR. ABSENT: diastolic murmur, rubs, systolic murmur GI/Abdominal exam: PRESENT: normal bowel sounds, soft, other - G-tube in place, patent, filled with bilious fluid. No sign of discharge.. ABSENT: distended, guarding, mass, organolmegaly, rebound, tenderness Neurological exam: PRESENT: alert, awake, oriented to person, oriented to place, CN II-XII grossly intact. ABSENT: motor sensory deficit Results Laboratory Results: 08/17/20 06:06 08/17/20 06:06 08/17/20 08/17/20 06:06 06:06 WBC 7.6 RBC 2.69 L Hgb 8.2 L Hct 25.0 L MCV 93 MCH 30.4 MCHC 32.8 RDW 16.0 H Plt Count 229 Sodium 134.9 L Potassium 3.8 Chloride 93 L Carbon Dioxide 32 H Anion Gap 10 BUN 53 H Creatinine 5.84 H Est GFR ( Amer) 12 L Glucose 255 H Calcium 8.3 L Phosphorus 8.5 H Magnesium 2.4 H 07/28/20 18:30 Troponin I 0.023 Impressions: Abdomen Ultrasound 07/28/20 20:00 IMPRESSION: 1. Gallstones, gallbladder wall thickening, intrahepatic biliary dilatation and nonspecific possible inflammatory material surrounding the gallbladder. These findings are suspicious for acute cholecystitis. Gray's sign was negative but this does not exclude acute cholecystitis. 2. Common bile duct is only mildly dilated. . Question common bile duct stones. 3. Fatty liver. Low position of an atrophic right kidney in the pelvis. Abdomen MRI 07/29/20 04:06 IMPRESSION: 1.1 cm calcific density appears to localize to the common bile duct. The gallbladder is largely decompressed and mild intrahepatic biliary dilatation persists. Associated right upper quadrant inflammatory changes. Other chronic and incidental findings as detailed above. Catheter Placement 07/30/20 00:00 IMPRESSION: IMAGE(S) OBTAINED DURING PROCEDURE. Cholangiogram 08/01/20 00:00 IMPRESSION: IMAGE(S) OBTAINED DURING PROCEDURE. Fluoroscopy 08/01/20 00:00 IMPRESSION: IMAGE(S) OBTAINED DURING PROCEDURE. Abdomen/Pelvis CT 08/06/20 00:00 IMPRESSION: 1. POST CHOLECYSTECTOMY. PERCUTANEOUS SURGICAL DRAIN PRESENT. SMALL AMOUNT OF FREE FLUID IN THE RIGHT UPPER QUADRANT. NO FINDINGS TO SUGGEST DISCRETE ABSCESS. 2. OTHER CHRONIC CHANGES INCLUDING PANCREATIC CALCIFICATIONS, PELVIC RIGHT KIDNEY, AND LEFT INGUINAL HERNIA WITH A SMALL PORTION OF THE BLADDER PROTRUDING INTO THE PROXIMAL INGUINAL CANAL. NO OTHER SIGNIFICANT OR ACUTE ABDOMINAL PROCESS. Chest CT 08/06/20 00:00 IMPRESSION: LARGE BILATERAL PLEURAL EFFUSIONS. LOWER LOBE AIRSPACE DISEASE MOST LIKELY DUE TO COMPRESSIVE ATELECTASIS ALTHOUGH PNEUMONIA CANNOT BE EXCLUDED. NO OTHER SIGNIFICANT FINDING ON NON-CONTRASTED CHEST CT. Chest X-Ray 08/13/20 14:10 IMPRESSION: No pneumothorax. New venous access catheter in expected location. Hepatobiliary Scan Nuclear Medicine 08/14/20 00:00 IMPRESSION: Prior cholecystectomy. No extravasation. Modified Barium Swallow 08/14/20 00:00 IMPRESSION: SEVERE LARYNGEAL PENETRATION AND TRACHEAL ASPIRATION OF ALL CONSISTENCIES GIVEN. PLEASE SEE SPEECH PATHOLOGIST REPORT FOR OTHER FINDINGS AND RECOMMENDATIONS. KUB X-Ray 08/15/20 12:55 IMPRESSION: Enteric tube with the tip projecting in the region of the gastric antrum. Nonobstructive bowel gas pattern. Clear lung bases. Gastrostomy Tube Placement 08/17/20 00:00 IMPRESSION: SUCCESSFUL FLUOROSCOPIC GUIDED PLACEMENT OF A NJ TUBE. DOBHOFF TUBE IS AT THE 90 CM MALIKA AT THE RIGHT NARES. Guidance Fluoroscopy 08/17/20 00:00 IMPRESSION: SUCCESSFUL FLUOROSCOPIC GUIDED PLACEMENT OF A NJ TUBE. DOBHOFF TUBE IS AT THE 90 CM MALIKA AT THE RIGHT NARES. Assessment and Plan - Diagnosis (1) Dysphagia Qualifiers: Dysphagia type: oropharyngeal phase Qualified Code(s): R13.12 - Dysphagia, oropharyngeal phase Is this a current diagnosis for this admission?: Yes Plan: Status post Dobbhoff tube placement. Patient was noted to be coughing after p.o. intake. Speech therapy was consulted and modified barium swallow showed that patient was has significant aspiration. Recommendation is for outpatient aggressive speech therapy good oral hygiene and only ice chips at the moment. Unfortunately patient is not a candidate for PEG tube placement due to recent abdominal surgery. Nephrology is not recommending TPN as patient is end-stage renal disease and may need his upper extremity veins for hemodialysis. Meanwhile patient can have ice chips with good oral hygiene and aspiration p recautions. Patient ready to be discharged home with home health to live with his sister. (2) Chronic cholecystitis due to cholelithiasis with choledocholithiasis Is this a current diagnosis for this admission?: Yes Plan: Status post attempted laparoscopic cholecystectomy which was converted to open cholecystectomy with Kapil-en-Y hepatic jejunostomy 08/01/2020. On admission ERCP attempted by Dr. dahl found to have gallstone eroding through duct, procedure aborted. Pathology report negative for any dysplasia or malignancy. CT abdomen/pelvis to reevaluate abdomen 08/05: Did not show any acute findings other than some small amount of fluid collection, no abscess HIDA scan no sign of leakage. Received a complecte course of IV antibiotics. Stopped vancomycin as there is no evidence of MRSA infection Liver enzymes WNL. AUBREY drain in place. Surgery has signed off. Recommending outpatient follow-up for removal of AUBREY drain. Continue pain management supportive care, monitor in and out, monitor volume status and electrolytes. (3) Acute hypoxemic respiratory failure Is this a current diagnosis for this admission?: Yes Plan: Resolved. SPO2 WNL on RA. Continue as needed DuoNebs, incentive spirometry and flutter valve. (4) Acute renal failure superimposed on stage 5 chronic kidney disease, not on chronic dialysis Qualifiers: Acute renal failure type: unspecified Qualified Code(s): N17.9 - Acute kidney failure, unspecified; N18.5 - Chronic kidney disease, stage 5 Is this a current diagnosis for this admission?: Yes Plan: Euvolemic. Electrolytes WNL. Renal function gradually improving. oh HD MWF, Permcarth placement Nephrology on board. Monitor in and out, monitor electrolytes and volume status, replace electrolytes as needed. Avoid nephrotoxic meds. (5) Biliary anastomotic leak Is this a current diagnosis for this admission?: Yes Plan: From hepaticojejunostomy. Controlled. HIDA scan negative for any leaks. Surgery has signed off. Patient still has a AUBREY drain which needs to come out once patient is able to follow-up as outpatient with surgery. (6) Chronic anemia Is this a current diagnosis for this admission?: Yes Plan: Likely due to surgery and chronic renal failure complicated by acute on chronic due to blood loss anemia from coagulopathy Status post 1 unit PRBC and multipleFFP transfusions on 08/06 Receiving Procrit by nephrology. H&H is stable. No acute sign of bleeding. Monitor H&H. Supportive transfusions. (7) Essential hypertension Is this a current diagnosis for this admission?: Yes Plan: Appears euvolemic, normotensive except for low BPs during hemodialysis as reported by previous physician. Continue current medication. Adjust meds as needed. As needed IV hydralazine and metoprolol. Outpatient PCP and nephrology follow-up. (8) Metabolic acidosis Is this a current diagnosis for this admission?: Yes Plan: Resolved. (9) Sepsis following intra-abdominal surgery Is this a current diagnosis for this admission?: Yes Plan: Resolved. (10) Type 2 diabetes mellitus Qualifiers: Diabetes mellitus longterm insulin use: without long term care social worker use Diabetes mellitus complication status: with kidney complications Diabetes mellitus complication detail: with chronic kidney disease Chronic kidney disease stage: stage 5, not on chronic dialysis Qualified Code(s): E11.22 - Type 2 diabetes mellitus with diabetic chronic kidney disease; N18.5 - Chronic kidney disease, stage 5 Is this a current diagnosis for this admission?: Yes Plan: Diabetic diet, sliding scale insulin, correctional insulin, Accu-Chek, hypoglycemia protocol. Adjust doses as needed, resume home meds upon discharge. Outpatient PCP follow- up. (11) Vitamin K deficiency coagulation disorder Is this a current diagnosis for this admission?: Yes Plan: As per previous pressures in his note Given vitamin K Hematology consulted FFP given INR with good response to above interventions INR WNL on repeat labs. - Plan Summary Summary: Given history of dysphagia and risk of aspiration pneumonia patient will benefit from having a hospital bed at home as he will require the head of the bed to be elevated more than 30 degrees most of the time. - Time Time Spent with patient: 35 or more minutes Anticipated Discharge Disposition: Home with Home Health Anticipated Discharge Timeframe: within 24 hours
[2020-08-17] MEDS ORDERED: LORAZEPAM INJ 2 MG/1 ML VIAL ONE (21:11)
[2020-08-17] MEDS ORDERED: LORAZEPAM INJ 2 MG/1 ML VIAL IV ONE (21:45)
[2020-08-17] MEDS: MELATONIN 5 MG TABLET PO SCH (22:04)
[2020-08-18] MEDS: INSULIN LISPRO 100 UNIT/ML 3 ML VIAL SUBCUT SCH ×4 (00:18→19:40)
[2020-08-18] MEDS: METOCLOPRAMIDE HCL INJ/PF 10 MG/2 ML SDV IV SCH ×4 (02:32→21:20)
[2020-08-18] MEDS: HEPARIN SOD (PORCINE) 5,000 UNIT/ML 1 ML VIAL SUBCUT SCH ×3 (06:24→21:20)
[2020-08-18 07:01] LABS: ANION GAP 11 (5-19); BLOOD UREA NITROGEN 35 mg/dL (7-20); CALCIUM 8.3 mg/dL (8.4-10.2); CARBON DIOXIDE 25 mmol/L (22-30); CHLORIDE 99 mmol/L (98-107); GLUCOSE 170 mg/dL (75-110); POTASSIUM 4.2 mmol/L (3.6-5.0)
[2020-08-18] MEDS ORDERED: DOCUSATE SODIUM 100 MG/10 ML UDC PO SCH (10:00)
[2020-08-18] MEDS ORDERED: OLANZAPINE INJ/PF 10 MG SDV IM PRN (10:00)
--- NOTE | 2020-08-18 10:58 | PDOC PROGRESS REPORT ---
Subjective Progress Note for:: 08/18/20 Subjective:: Patient was reportedly confused and was agitated last night and pulled his NG tube. His nurse today, Nina also told me that the same thing happened this morning and patient required some Ativan and Zyprexa IM. When I asked the patient, he could not remember what happened or tell me why he did what he did. He is going to get a Dobbhoff tube inserted this morning. He is also supposed to be discharged home with the sister and an aide to take care of him. Reason For Visit: CHOLEDOCHOLITHIASIS, NEAR SYNCOPE, NAUSEA Physical Exam Vital Signs: Temp Pulse Resp BP Pulse Ox 98.1 F 82 19 100/56 L 96 08/18/20 07:25 08/18/20 07:25 08/18/20 07:25 08/18/20 07:25 08/18/20 07:25 Intake & Output 08/17/20 08/18/20 08/19/20 06:59 06:59 06:59 Intake Total 1484 440 Output Total 293 835 Balance 1191 -395 Weight 55.3 kg 56.1 kg Exam: General appearance: PRESENT: no acute distress, cooperative, well-developed, well-nourished Head exam: PRESENT: atraumatic, normocephalic Eye exam: PRESENT: conjunctiva pale, PERRLA. ABSENT: scleral icterus Neck exam: ABSENT: JVD Respiratory exam: PRESENT: Normal breath sounds. ABSENT: crackles, rales, rhonchi, unlabored, wheezes Cardiovascular exam: PRESENT: Regular rate rhythm -+S1, +S2. ABSENT: diastolic murmur, systolic murmur GI/Abdominal exam: PRESENT: normal bowel sounds, soft. ABSENT: guarding, mass, tenderness Extremities exam: ABSENT: No edema Neurological exam: PRESENT: alert, awake, oriented to person, place but not to time. Skin exam: PRESENT: dry, warm, pallor Cardiovascular exam: PRESENT: +S1, +S2 GI/Abdominal exam: PRESENT: normal bowel sounds, soft, tenderness - Mildly tender in the right upper quadrant.. ABSENT: organomegaly Results Laboratory Results: 08/17/20 06:06 08/18/20 05:48 08/18/20 05:48 Sodium 134.5 L Potassium 4.2 Chloride 99 Carbon Dioxide 25 Anion Gap 11 BUN 35 H Creatinine 3.79 H Est GFR ( Amer) 19 L Glucose 170 H Calcium 8.3 L Magnesium 2.4 H 07/28/20 18:30 Troponin I 0.023 Impressions: Abdomen Ultrasound 07/28/20 20:00 IMPRESSION: 1. Gallstones, gallbladder wall thickening, intrahepatic biliary dilatation and nonspecific possible inflammatory material surrounding the gallbladder. These findings are suspicious for acute cholecystitis. Gray's sign was negative but this does not exclude acute cholecystitis. 2. Common bile duct is only mildly dilated. . Question common bile duct stones. 3. Fatty liver. Low position of an atrophic right kidney in the pelvis. Abdomen MRI 07/29/20 04:06 IMPRESSION: 1.1 cm calcific density appears to localize to the common bile osmar t. The gallbladder is largely decompressed and mild intrahepatic biliary dilatation persists. Associated right upper quadrant inflammatory changes. Other chronic and incidental findings as detailed above. Catheter Placement 07/30/20 00:00 IMPRESSION: IMAGE(S) OBTAINED DURING PROCEDURE. Cholangiogram 08/01/20 00:00 IMPRESSION: IMAGE(S) OBTAINED DURING PROCEDURE. Fluoroscopy 08/01/20 00:00 IMPRESSION: IMAGE(S) OBTAINED DURING PROCEDURE. Abdomen/Pelvis CT 08/06/20 00:00 IMPRESSION: 1. POST CHOLECYSTECTOMY. PERCUTANEOUS SURGICAL DRAIN PRESENT. SMALL AMOUNT OF FREE FLUID IN THE RIGHT UPPER QUADRANT. NO FINDINGS TO SUGGEST DISCRETE ABSCESS. 2. OTHER CHRONIC CHANGES INCLUDING PANCREATIC CALCIFICATIONS, PELVIC RIGHT KIDNEY, AND LEFT INGUINAL HERNIA WITH A SMALL PORTION OF THE BLADDER PROTRUDING INTO THE PROXIMAL INGUINAL CANAL. NO OTHER SIGNIFICANT OR ACUTE ABDOMINAL PROCESS. Chest CT 08/06/20 00:00 IMPRESSION: LARGE BILATERAL PLEURAL EFFUSIONS. LOWER LOBE AIRSPACE DISEASE MOST LIKELY DUE TO COMPRESSIVE ATELECTASIS ALTHOUGH PNEUMONIA CANNOT BE EXCLUDED. NO OTHER SIGNIFICANT FINDING ON NON-CONTRASTED CHEST CT. Chest X-Ray 08/13/20 14:10 IMPRESSION: No pneumothorax. New venous access catheter in expected location. Hepatobiliary Scan Nuclear Medicine 08/14/20 00:00 IMPRESSION: Prior cholecystectomy. No extravasation. Modified Barium Swallow 08/14/20 00:00 IMPRESSION: SEVERE LARYNGEAL PENETRATION AND TRACHEAL ASPIRATION OF ALL CON SISTENCIES GIVEN. PLEASE SEE SPEECH PATHOLOGIST REPORT FOR OTHER FINDINGS AND RECOMMENDATIONS. KUB X-Ray 08/15/20 12:55 IMPRESSION: Enteric tube with the tip projecting in the region of the gastric antrum. Nonobstructive bowel gas pattern. Clear lung bases. Gastrostomy Tube Placement 08/17/20 00:00 IMPRESSION: SUCCESSFUL FLUOROSCOPIC GUIDED PLACEMENT OF A NJ TUBE. DOBHOFF TUBE IS AT THE 90 CM MALIKA AT THE RIGHT NARES. Guidance Fluoroscopy 08/17/20 00:00 IMPRESSION: SUCCESSFUL FLUOROSCOPIC GUIDED PLACEMENT OF A NJ TUBE. DOBHOFF TUBE IS AT THE 90 CM AMLIKA AT THE RIGHT NARES. Assessment & Plan - Diagnosis (1) CKD (chronic kidney disease), stage V Is this a current diagnosis for this admission?: Yes Plan: Secondary to diabetic nephropathy with known proteinuria. Patient has now reached ESRD and would require chronic long-term dialysis treatment. When I last saw him a year ago he was on the verge of going to ESRD with all complications associated with it. Patient understood that he is going to need long-term chronic dialysis treatment. He now have a functioning PermCath and outpatient dialysis has been arranged by the case management at [facility]. Due to the patient's mental status I do not think is a good idea to send the patient home today yet. We will plan for his dialysis tomorrow if is still here. (2) Acute renal failure superimposed on stage 5 chronic kidney disease, not on chronic dialysis Qualifiers: Acute renal failure type: unspecified Qualified Code(s): N17.9 - Acute kidney failure, unspecified; N18.5 - Chronic kidney disease, stage 5 Is this a current diagnosis for this admission?: Yes Plan: Patient's kidney function has gotten worse this admission due to his acute illness which puts him more to ESRD from CKD 5. Plan as above. (3) Metabolic acidosis Is this a current diagnosis for this admission?: Yes Plan: Resolved. (4) Chronic cholecystitis due to cholelithiasis with choledocholithiasis Is this a current diagnosis for this admission?: Yes Plan: Status post cholecystectomy initially laparoscopic converted to open procedure on 08/01/2020. Status post ERCP on 07/30/2020. Surgery following. HIDA scan negative. (5) Sepsis following intra-abdominal surgery Is this a current diagnosis for this admission?: Yes Plan: He was given a dose of Zosyn initially. Completed ceftriaxone, and metronidazole. Vancomycin discontinued. Resolved. (6) Hypoalbuminemia Is this a current diagnosis for this admission?: Yes Plan: On Nepro tube feeding via NG tube yesterday until he pulled out his NG tube. For Dobbhoff insertion by radiologist today. (7) Anemia in chronic kidney disease (CKD) Qualifiers: Chronic kidney disease stage: stage 4 (severe) Qualified Code(s): N18.4 - Chronic kidney disease, stage 4 (severe); D63.1 - Anemia in chronic kidney disease Is this a current diagnosis for this admission?: Yes Plan: Patient has chronic anemia of chronic kidney disease and has refused to take NOELLE therapy for the past 1 to 2 years. Most recent iron is also low at 41.6, TSAT 19 and ferritin of 543. He was given blood transfusions. On Retacrit during dialysis treatment. (8) Type 2 diabetes mellitus Qualifiers: Diabetes mellitus snf insulin use: without buttermaker use Diabetes mellitus complication status: with kidney complications Diabetes mellitus complication detail: with chronic kidney disease Chronic kidney disease stage: stage 5, not on chronic dialysis Qualified Code(s): E11.22 - Type 2 diabetes mellitus with diabetic chronic kidney disease; N18.5 - Chronic kidney disease, stage 5 Is this a current diagnosis for this admission?: Yes Plan: Suboptimally controlled. (9) Chronic kidney disease-mineral and bone disorder Is this a current diagnosis for this admission?: Yes Plan: Phosphorus is 8.5 with PTH of 318.2 and normal corrected calcium. Once the patient is taking medications orally he would need phosphorus binder and vitamin D analogs. We will hold for now. (10) Dysphagia Qualifiers: Dysphagia type: oropharyngeal phase Qualified Code(s): R13.12 - Dysphagia, oropharyngeal phase Is this a current diagnosis for this admission?: Yes Plan: On tube feedings . NG tube pulled by patient. Dobbhoff tube to be inserted today by radiology. I tried to reason out with patient that he would need nutrition and he should not pull his feeding tubes. (11) Pleural effusion Is this a current diagnosis for this admission?: Yes Plan: Resolved on recent chest x-ray. (12) Coagulopathy Is this a current diagnosis for this admission?: Yes Plan: Resolved. (13) Essential hypertension Is this a current diagnosis for this admission?: Yes Plan: On carvedilol but occasionally requiring midodrine specially on dialysis including today. (14) Acute hypoxemic respiratory failure Is this a current diagnosis for this admission?: Yes Plan: Resolved. - Notes Notes: Prognosis is guarded. Due to the patient's age and comorbidities, it will take him a quite a while to recover from this. Discussed with Dr. Moore.
[2020-08-18] MEDS ORDERED: OLANZAPINE 2.5 MG TABLET PO SCH (11:00)
[2020-08-18] MEDS: GUAIFENESIN SYRP 200 MG/10 ML UDC PO SCH ×2 (11:10→21:20)
[2020-08-18] MEDS: CARVEDILOL 6.25 MG TABLET PO SCH ×2 (11:10→21:20)
[2020-08-18] MEDS: INSULIN GLARGINE,HUM.REC.ANLOG 1,000 UNIT/10 ML VIAL SUBCUT SCH (11:15)
--- NOTE | 2020-08-18 14:13 | RADIOLOGY REPORT (SQ) ---
EXAM DESCRIPTION: INTRO/GI TUBE W/FLUORO; INTRO LONG GI TUBE (MILLAB) IMAGES COMPLETED DATE/TIME: 08/18/2020 1:34 pm REASON FOR STUDY: tube placement; DOBHOFF INSERTION COMPARISON: CT abdomen pelvis 08/06/2020 Cookie swallow 08/14/2020 Abdominal films 08/15/2020 Fluoroscopic feeding tube placement 08/17/2020 TECHNIQUE: Using a sterile prep technique an old g-tube was exchanged for a new one. Fluoroscopic i mages were saved to PACS demonstrating the final position. RADIATION DOSE: 6.7a Minutes 2 fluoroscopic images saved to PACS. LIMITATIONS: None. FINDINGS: Patient underwent fluoroscopic nasoenteric feeding tube placement yesterday. The patient pulled out the tube last night. The tube was initially placed into the gastric body, a small amount of Omnipaque 300 was injected to outline the duodenum all seen with. There was leakage of contrast from the antral pyloric region of the stomach into the retroperitoneum. The top to follow the true lumen of the duodenum, the tube tip is at the duodenum jejunal junction to the left of the spine. Incidental finding of a 3 cm periampullary duodenum diverticulum. IMPRESSION: Successful nasoenteric dobhoff tube placement with the tip at the duodenum jejunal junct ion. During fluoroscopy, leakage of contrast from the antropyloric stomach into the retroperitoneum and ad jacent to the right upper quadrant drain occurred COMMENT: Findings communicated to Dr. Parra Quality ID [id number]: Final reports for procedures using fluoroscopy that document radiation exposure morteza esthela, or exposure time and number of fluorographic images (if radiation exposure indices are not avail able) TECHNICAL DOCUMENTATION: JOB ID: [id number] 2010 [employer]- All Rights Reserved Reading location - IP/workstation name: [email or web address]
--- NOTE | 2020-08-18 14:13 | RADIOLOGY REPORT (SQ) ---
EXAM DESCRIPTION: INTRO/GI TUBE W/FLUORO; INTRO LONG GI TUBE (MILLAB) IMAGES COMPLETED DATE/TIME: 08/18/2020 1:34 pm REASON FOR STUDY: tube placement; DOBHOFF INSERTION COMPARISON: CT abdomen pelvis 08/06/2020 Cookie swallow 08/14/2020 Abdominal films 08/15/2020 Fluoroscopic feeding tube placement 08/17/2020 TECHNIQUE: Using a sterile prep technique an old g-tube was exchanged for a new one. Fluoroscopic i mages were saved to PACS demonstrating the final position. RADIATION DOSE: 6.7a Minutes 2 fluoroscopic images saved to PACS. LIMITATIONS: None. FINDINGS: Patient underwent fluoroscopic nasoenteric feeding tube placement yesterday. The patient pulled out the tube last night. The tube was initially placed into the gastric body, a small amount of Omnipaque 300 was injected to outline the duodenum all seen with. There was leakage of contrast from the antral pyloric region of the stomach into the retroperitoneum. The top to follow the true lumen of the duodenum, the tube tip is at the duodenum jejunal junction to the left of the spine. Incidental finding of a 3 cm periampullary duodenum diverticulum. IMPRESSION: Successful nasoenteric dobhoff tube placement with the tip at the duodenum jejunal junct ion. During fluoroscopy, leakage of contrast from the antropyloric stomach into the retroperitoneum and ad jacent to the right upper quadrant drain occurred COMMENT: Findings communicated to Dr. Parra Quality ID [id number]: Final reports for procedures using fluoroscopy that document radiation exposure morteza esthela, or exposure time and number of fluorographic images (if radiation exposure indices are not avail able) TECHNICAL DOCUMENTATION: JOB ID: [id number] 2010 [employer]- All Rights Reserved Reading location - IP/workstation name: [email or web address]
--- NOTE | 2020-08-18 14:29 | Progress Note ---
Provider Note Provider Note: I reviewd the florscopic study for the placemnt of the dobhoff tube today Radiologhist suggested a leak of contrast from the anastmoios of the end of jazmin limb for the accexss site for the hepaticojejunostomy at this pt the pt has no peritionits or elevated wbc I will order a ct scan to r/o any fluid collection and if none, would cont current course of rx with the femi bulb I suspect the leak will eventually epithelialize and fistulize.
--- NOTE | 2020-08-18 15:36 | PDOC PROGRESS REPORT ---
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 Initial evaluation in the ED showed the patient was hypertensive with leukocytosis and elevated bilirubin and transaminase including alkaline phosphatase. CT of the abdomen showed cholelithiasis with questionable choled ocholithiasis. On 07/30/2020 he underwent ERCP by Dr. 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 On 08/01/2020 he underwent laparoscopic cholecystectomy which was converted to open cholecystectomy with Kapil-en-Y hepatic jejunostomy by Dr. Schaffer. Postoperatively he was admitted in the ICU for closer monitoring. He had acute hypoxemic respiratory failure and hypotension postoperatively. He was successfully extubated though. He required 4 units of packed RBC, 1 unit FFP and 3 L of lactated Ringer's and 500 mL of normal saline. Apparently there was significant bile staining of the retroperitoneum behind the pancreas and the duodenum. He was started on metronidazole, ceftriaxone, vancomycin and fluconazole. Over the weekend the patient was monitored while in the ICU and surprisingly did well." 08/04/2020 Patient popped out of ICU overnight. Creatinine lower today. Blood cultures negative. Patient states he has not had a bowel movement yet and would like a bowel regimen started. He does have some abdominal pain from his recent surgery but other than that he has no new complaints. General surgery is following. 08/05/2020 Patient repeatedly states he feels fine and is doing well, however his bicarb is acutely dropped to 8 and his anion gap is 26. I am concerned that he may be developing an intra-abdominal infection from his recent surgery and I have ordered a CT of his chest/abdomen/pelvis to also help rule out a developing pneumonia. I discussed case with Dr. Schaffer as well as Dr. Hill. Patient did not get much dialysis as his blood pressure was quite low. Nephrology recommended giving albumin and have also started as needed midodrine to be given 1 hour prior to dialysis sessions. 08/06/2020 Patient doing quite poorly overnight on into this morning reportedly. Hemodynamically he remained stable thankfully. His hemoglobin acutely dropped and I transfused him 1 unit PRBC. He was given multiple units FFP overnight for coagulopathy and Dr. Wilfrido gates has given him multiple doses of vitamin K which seems to have brought his INR down considerably. Patient had what looked to be silvestre blood in his abdominal drain bulb. He likely has vitamin K deficiency from prolonged hospitalization and poor nutrition. I discussed the case with Dr. Schaffer who did not want the patient to get an NG tube as he is concerned about the anastomoses being damaged by this. It may be necessary to place an NG tube in order to give the patient adequate nutrition. Alternatively, we could attempt TPN though this is not a long-term solution. Creatinine lower today. Discussed case with nephrology who will have the patient dialyzed today after getting transfused. Transfer patient to [facility], low threshold for ICU transfer. I am concerned that if patient does not improve in the near future he may not survive this admission. He is extremely frail and weak. 08/07/2020 Patient seems to be doing a bit better today after being transfused blood and FFP yesterday and also getting vitamin K. His INR sharply corrected after getting the vitamin K. His blood pressure and hemoglobin are higher today. He is breathing comfortably on room air. Patient has extremely poor nutrition as he has barely eaten anything over the past several days. I discussed with nursing potentially getting him PPN/TPN though nephrology does not want him to have this. Also discussed possibility of an NG tube and tube feeds. 08/08/2020 Patient still continues to improve today. He has a bit of more color in his face today. He is having multiple bowel movements now and his INR has been fully corrected down to 1. Creatinine is notably lower. General surgery following. Hemoglobin rising 08/09/2020 Patient is having some coarse coughing and gurgling when he speaks. Discussed with nursing to check on his swallowing ability although he has been reportedly eating very well over the past few days. Blood pressure is mildly elevated. 08/10/2020 Patient states he is doing significantly better today from respiratory standpoint. He does sound less congested today compared to prior exams. General surgery is following and planning to place a permacath within the next few days. Patient is continued on antibiotics although these can likely complete very soon. Blood pressure elevated but will likely improve with dialysis. Patient has no new complaints. He will need to go to SNF at discharge. Per Previous Physician: "08/11/2020. No acute events overnight. Saw patient this morning was comfortably sleeping but easily arousable, does not appear to be in any acute distress, has no complaint today, pending permacath placement by surgery. 08/12/2020. No acute events overnight. Patient is more awake and alert today, does not appear to be any apparent distress, is tolerating his feeds, denies any fever, chills, nausea, vomiting. 08/14/2020. No acute events overnight. Saw patient this morning while receiving his hemodialysis, comfortably sitting in recliner, in no apparent distress, alert and oriented, offloaded with physical examination and answering questions appropriately, patient had his permacath placed and plan is to remove his Timur catheter, he is also been followed by surgery and plan is to have a HIDA scan today, patient is p.o. tolerant, stating that when he eats he coughs afterwards, speech therapy evaluation is pending, denies any fever, chills, nausea, vomiting. 08/15/2020. No acute events overnight. 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 Family has consented for Dobbhoff tube while patient is receiving speech therapy and hope of recovering his dysphagia. Patient sister still wants Mr. Mancuso to be discharged home to stay with her. 08/16/2020. No acute events overnight. Saw patient this morning comfortably sleeping, easily arousable, cooperative with physical examination, denies any fever, chills, nausea, vomiting, diarrhea, constipation or any urinary symptoms. Patient has a nasogastric tube for his feeds and is stating is not bothering him much. His back pain has improved since being started on low-dose morphine. 08/17/2020. No acute events overnight. Patient is status post Dobbhoff tube placed, tolerating feeds, patient denies any fever, chills, nausea, vomiting, diarrhea, constipation or any urinary symptoms. Patient does not want to be transferred to SNF, he would like to go home with his sister who agrees with him . Patient is ready to be discharged home however discharge planners are working on arranging his home needs before he can safely discharged home." 08/18/2020 I had a lengthy discussion with the patient's sister, KERRY, about his CODE STATUS and she states she would like him to be DNR/DNI and she has always felt this way. CODE STATUS changed to reflect this decision. I expressed my concern to the patient going home with the sister including the patient may pull out his Dobbhoff and not get adequate nutrition and potentially pass away from this. Also stated he is high risk to pull out his dialysis catheter while he is being dialyzed and possibly harm himself this way. He is not a candidate for PEG tube as he may inadvertently harm himself if he pulls out his PEG tube causing peritonitis. All these things considered, the sister would like to take patient home with a Dobbhoff and feeding carried out until the patient pulls this out. I have started him on some low-dose Zyprexa to help keep him calm and hopefully avoid him pulling out the Dobbhoff tube. If the patient pulled out his Dobbhoff, the sister would like the patient to be transition to hospice at that point. Medical equipment is being delivered but is not at home yet. Patient's sister states she would like him to come home tomorrow. General surgery has ordered a CT scan to look for anastomotic leak mentioned on imaging done for Dobbhoff placement. Reason For Visit: CHOLEDOCHOLITHIASIS, NEAR SYNCOPE, NAUSEA Physical Exam Vital Signs: Temp Pulse Resp BP Pulse Ox 97.6 F 88 19 130/87 H 100 08/18/20 11:10 08/18/20 11:10 08/18/20 11:10 08/18/20 11:10 08/18/20 11:10 Intake & Output 08/17/20 08/18/20 08/19/20 06:59 06:59 06:59 Intake Total 1484 440 Output Total 293 835 20 Balance 1191 -395 -20 Weight 55.3 kg 56.1 kg Exam: General appearance: PRESENT: no acute distress, appears thin and weak, somewhat somnolent today Head exam: PRESENT: atraumatic, normocephalic Eye exam: PRESENT: conjunctiva pale Mouth exam: PRESENT: moist Respiratory exam: PRESENT: clear to auscultation deven. ABSENT: rales, rhonchi, wheezes Cardiovascular exam: PRESENT: RRR. ABSENT: diastolic murmur, rubs, systolic murmur GI/Abdominal exam: PRESENT: normal bowel sounds, soft, nontender, healing. ABSENT: distended, guarding, mass, organolmegaly, rebound Rectal exam: PRESENT: deferred Neurological exam: PRESENT: alert, awake, oriented to person, oriented to place, oriented to time, oriented to situation Psychiatric exam: PRESENT: appropriate affect, normal mood Skin exam: PRESENT: dry, intact, warm Results Laboratory Results: 08/17/20 06:06 08/18/20 05:48 08/18/20 05:48 Sodium 134.5 L Potassium 4.2 Chloride 99 Carbon Dioxide 25 Anion Gap 11 BUN 35 H Creatinine 3.79 H Est GFR ( Amer) 19 L Glucose 170 H Calcium 8.3 L Magnesium 2.4 H 07/28/20 18:30 Troponin I 0.023 Impressions: Abdomen Ultrasound 07/28/20 20:00 IMPRESSION: 1. Gallstones, gallbladder wall thickening, intrahepatic biliary dilatation and nonspecific possible inflammatory material surrounding the gallbladder. These findings are suspicious for acute cholecystitis. Gray's sign was negative but this does not exclude acute cholecystitis. 2. Common bile duct is only mildly dilated. . Question common bile duct stones. 3. Fatty liver. Low position of an atrophic right kidney in the pelvis. Abdomen MRI 07/29/20 04:06 IMPRESSION: 1.1 cm calcific density appears to localize to the common bile duct. The gallbladder is largely decompressed and mild intrahepatic biliary dilatation persists. Associated right upper quadrant inflammatory changes. Other chronic and incidental findings as detailed above. Catheter Placement 07/30/20 00:00 IMPRESSION: IMAGE(S) OBTAINED DURING PROCEDURE. Cholangiogram 08/01/20 00:00 IMPRESSION: IMAGE(S) OBTAINED DURING PROCEDURE. Fluoroscopy 08/01/20 00:00 IMPRESSION: IMAGE(S) OBTAINED DURING PROCEDURE. Chest CT 08/06/20 00:00 IMPRESSION: LARGE BILATERAL PLEURAL EFFUSIONS. LOWER LOBE AIRSPACE DISEASE MOST LIKELY DUE TO COMPRESSIVE ATELECTASIS ALTHOUGH PNEUMONIA CANNOT BE EXCLUDED. NO OTHER SIGNIFICANT FINDING ON NON-CONTRASTED CHEST CT. Chest X-Ray 08/13/20 14:10 IMPRESSION: No pneumothorax. New venous access catheter in expected location. Hepatobiliary Scan Nuclear Medicine 08/14/20 00:00 IMPRESSION: Prior cholecystectomy. No extravasation. Modified Barium Swallow 08/14/20 00:00 IMPRESSION: SEVERE LARYNGEAL PENETRATION AND TRACHEAL ASPIRATION OF ALL CONSISTENCIES GIVEN. PLEASE SEE SPEECH PATHOLOGIST REPORT FOR OTHER FINDINGS AND RECOMMENDATIONS. KUB X-Ray 08/15/20 12:55 IMPRESSION: Enteric tube with the tip projecting in the region of the gastric antrum. Nonobstructive bowel gas pattern. Clear lung bases. Gastrostomy Tube Placement 08/18/20 00:00 IMPRESSION: Successful nasoenteric dobhoff tube placement with the tip at the duodenum jejunal junction. During fluoroscopy, leakage of contrast from the antropyloric stomach into the retroperitoneum and adjacent to the right upper quadrant drain occurred Guidance Fluoroscopy 08/18/20 00:00 IMPRESSION: Successful nasoenteric dobhoff tube placement with the tip at the duodenum jejunal junction. During fluoroscopy, leakage of contrast from the antropyloric stomach into the retroperitoneum and adjacent to the right upper quadrant drain occurred Assessment and Plan - Diagnosis (1) Chronic cholecystitis due to cholelithiasis with choledocholithiasis Is this a current diagnosis for this admission?: Yes Plan: Per Previous Physician: "Status post attempted laparoscopic cholecystectomy which was converted to open cholecystectomy with Kapil-en-Y hepatic jejunostomy 08/01/2020. On admission ERCP attempted by Dr. dahl found to have gallstone eroding through duct, procedure aborted. Pathology report negative for any dysplasia or malignancy. CT abdomen/pelvis to reevaluate abdomen 08/05: Did not show any acute findings other than some small amount of fluid collection, no abscess HIDA scan no sign of leakage. Received a complecte course of IV antibiotics. Stopped vancomycin as there is no evidence of MRSA infection Liver enzymes WNL. AUBREY drain in place. Surgery has signed off. Recommending outpatient follow-up for removal of AUBREY drain. Continue pain management supportive care, monitor in and out, monitor volume status and electrolytes." (2) Acute renal failure superimposed on stage 5 chronic kidney disease, not on chronic dialysis Qualifiers: Acute renal failure type: unspecified Qualified Code(s): N17.9 - Acute kidney failure, unspecified; N18.5 - Chronic kidney disease, stage 5 Is this a current diagnosis for this admission?: Yes Plan: Per Previous Physician: "Euvolemic. Electrolytes WNL. Renal function gradually improving. oh HD MWF, Permcarth placement Nephrology on board. Monitor in and out, monitor electrolytes and volume status, replace electrolytes as needed. Avoid nephrotoxic meds. Patient may be appropriate for hospice in the near future especially if he begins pulling on his dialysis catheter (3) Chronic anemia Is this a current diagnosis for this admission?: Yes Plan: Per Previous Physician: "Likely due to surgery and chronic renal failure complicated by acute on chronic due to blood loss anemia from coagulopathy Status post 1 unit PRBC and multipleFFP transfusions on 08/06 Receiving Procrit by nephrology. H&H is stable. No acute sign of bleeding. Monitor H&H. 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 Diabetes mellitus complication status: with kidney complications Diabetes mellitus complication detail: with chronic kidney disease Chronic kidney disease stage: stage 5, not on chronic dialysis Qualified Code(s): E11.22 - Type 2 diabetes mellitus with diabetic chronic kidney disease; N18.5 - Chronic kidney disease, stage 5 Is this a current diagnosis for this admission?: Yes (8) Abnormal findings on imaging of biliary tract Is this a current diagnosis for this admission?: Yes (9) GAURAV (acute kidney injury) Is this a current diagnosis for this admission?: Yes (10) Choledocholithiasis Is this a current diagnosis for this admission?: Yes (11) Vitamin K deficiency coagulation disorder Is this a current diagnosis for this admission?: Yes (12) Acute hypoxemic respiratory failure Is this a current diagnosis for this admission?: Yes Plan: Resolved. SPO2 WNL on RA. Continue as needed DuoNebs, incentive spirometry and flutter valve. (13) Anemia in chronic kidney disease (CKD) Qualifiers: Chronic kidney disease stage: stage 4 (severe) Qualified Code(s): N18.4 - Chronic kidney disease, stage 4 (severe); D63.1 - Anemia in chronic kidney disease Is this a current diagnosis for this admission?: Yes (14) Biliary anastomotic leak Is this a current diagnosis for this admission?: Yes Plan: From hepaticojejunostomy. Controlled. HIDA scan negative for any leaks. Surgery has signed off. follow-up as outpatient with surgery. (15) Sepsis following intra-abdominal surgery Is this a current diagnosis for this admission?: Yes Plan: Resolved. (16) Type 2 diabetes mellitus with chronic kidney disease and hypertension Is this a current diagnosis for this admission?: Yes Plan: Controlled. - Plan Summary Summary: Given history of dysphagia and risk of aspiration pneumonia patient will benefit from having a hospital bed at home as he will require the head of the bed to be elevated more than 30 degrees most of the time. - Time Time Spent with patient: 25-34 minutes Medications reviewed and adjusted accordingly: Yes Anticipated Discharge Disposition: Home with Home Health Anticipated Discharge Timeframe: within 24 hours - Inpatient Certification Based on my medical assessment, after consideration of the patient's comorbidities, presenting symptoms, or acuity I expect that the services needed warrant INPATIENT care.: Yes I certify that my determination is in accordance with my understanding of Medicare's requirements for reasonable and necessary INPATIENT services [42 CFR 412.3e].: Yes Medical Necessity: Significant Comorbidiites Make Outpatient Treatment Too Risky, Need Close Monitoring Due to Risk of Patient Decompensation, Risk of Complication if Not Cared For in Hospital, Risk of Diagnosis Which Will Require Inpatient Eval/Care/Monitoring
--- NOTE | 2020-08-18 16:57 | RADIOLOGY REPORT (SQ) ---
EXAM DESCRIPTION: CT ABD/PELVIS NO ORAL OR IV IMAGES COMPLETED DATE/TIME: 08/18/2020 3:14 pm REASON FOR STUDY: r/o fluid collection COMPARISON: CT abdomen pelvis 08/06/2020, 07/28/2020 MRI abdomen 07/29/2020 Feeding tube placement fluoroscopy films same date TECHNIQUE: CT scan of the abdomen and pelvis performed without intravenous or oral contrast. Images reviewed with lung, soft tissue, and bone windows. Reconstructed coronal and sagittal MPR images revi ewed. All images stored on PACS. All CT scanners at this facility use dose modulation, iterative reconstruction, and/or weight based d osing when appropriate to reduce radiation dose to as low as reasonably achievable (ALARA). [facility]: Dose Right [facility]: CareDose [facility]: Dose Right [facility]: Teradose 4D [facility]: HelpMeNow RADIATION DOSE: CT Rad equipment meets quality standard of care and radiation dose reduction techniq ues were employed. CTDIvol: 5.6 mGy. DLP: 303 mGy-cm.mGy. LIMITATIONS: None. FINDINGS: Patient had a hepaticojejunostomy recently, with jejunal limb communicating with the stom ach as well (Fletcher-ramo loop). This is the contrast filled loop which appears discrete from the [place] duodenum on the fluoroscopy films from earlier today, and does not represent oral contrast ext ravasation. There is a fluid collection along the right psoas muscle, unchanged from 08/06/2020, about 7 x 5.5 x 4 cm in size, best shown on axial image 41 and coronal image 50. These findings were discussed with Dr. Cortez. LOWER CHEST: Trace bilateral pleural effusions with bibasilar atelectasis. NON-CONTRASTED LIVER, SPLEEN, ADRENALS: Air in the biliary tree. Right upper quadrant drain. Spleen , adrenal glands unremarkable PANCREAS: No masses. No peripancreatic inflammatory changes. GALLBLADDER: Surgically absent RIGHT KIDNEY AND URETER: 8 cm right pelvic kidney without cysts, stones, masses, or hydronephrosis LEFT KIDNEY AND URETER: No suspicious masses. Assessment limited by lack of IV contrast. No signifi cant calcifications. No hydronephrosis or hydroureter. AORTA AND RETROPERITONEUM: No aneurysm. No retroperitoneal masses or adenopathy. BOWEL AND PERITONEAL CAVITY: Contrast in the gastrointestinal tract. No bowel obstruction. No obvio us masses or inflammatory changes. No free fluid. APPENDIX: Normal. PELVIS, BLADDER, AND ABDOMINAL WALL:No abnormal masses. No free fluid. Bladder normal. BONES: No significant findings. OTHER: No other significant finding. IMPRESSION: No extravasation of oral contrast in the right upper quadrant COMMENT: Quality ID # [id number]: Final reports with documentation of one or more dose reduction techniques (e.g., Automated exposure control, adjustment of the mA and/or kV according to patient size, use of iterative reconstruction technique) TECHNICAL DOCUMENTATION: JOB ID: [id number] 2010 [employer]- All Rights Reserved Reading location - IP/workstation name: [email or web address]
[2020-08-18] MEDS: MELATONIN 5 MG TABLET PO SCH (21:20)
[2020-08-19] MEDS: INSULIN LISPRO 100 UNIT/ML 3 ML VIAL SUBCUT SCH ×3 (00:33→14:10)
[2020-08-19] MEDS: METOCLOPRAMIDE HCL INJ/PF 10 MG/2 ML SDV IV SCH ×3 (02:17→14:09)
[2020-08-19] MEDS ORDERED: NORMAL SALINE 1000 ML 1,000 ML IV PRN (05:00)
[2020-08-19] MEDS ORDERED: HEPARIN SOD (PORCINE) 1,000 UNIT/ML 10 ML VIAL IV PRN (05:00)
[2020-08-19] MEDS ORDERED: EPOETIN ALFA-EPBX 2,000 UNIT, EPOETIN ALFA-EPBX 3,000 UNIT, EPOETIN ALFA-EPBX 20,000 UN... IV PRN ×4 (05:00)
[2020-08-19 05:44] LABS: ABSOLUTE BASOPHILS # (AUTO) 0.1 10^3/uL (0.0-0.2); ABSOLUTE EOSINOPHILS # (AUTO) 0.2 10^3/uL (0.0-0.6); ABSOLUTE LYMPHOCYTES (AUTO) 1.5 10^3/uL (0.5-4.7); ABSOLUTE MONOCYTES (AUTO) 0.7 10^3/uL (0.1-1.4); ABSOLUTE NEUT (AUTO) 5.1 10^3/uL (1.7-8.2); BASOPHILS % (AUTO) 0.8 % (0-2); EOSINOPHILS % (AUTO) 2.8 % (0-6); HEMATOCRIT 23.5 % (37.9-51.0); LYMPHOCYTES % (AUTO) 19.9 % (13-45); MEAN CORPUSCULAR HEMOGLOBIN 30.2 pg (27.0-33.4); MEAN CORPUSCULAR HGB CONC 32.5 g/dL (32.0-36.0); MEAN CORPUSCULAR VOLUME 93 fl (80-97); MONOCYTES % (AUTO) 9.8 % (3-13); PLATELET COUNT 232 10^3/uL (150-450); RED BLOOD COUNT 2.53 10^6/uL (4.35-5.55); RED CELL DISTRIBUTION WIDTH 15.8 % (11.5-14.0); SEGMENTED NEUTROPHILS % (AUTO) 66.7 % (42-78); TOTAL CELLS COUNTED % (AUTO) 100 %; WHITE BLOOD COUNT 7.6 10^3/uL (4.0-10.5)
[2020-08-19 05:46] LABS: HEMOGLOBIN 7.6 g/dL (13.5-17.0)
[2020-08-19 05:59] LABS: ANION GAP 11 (5-19); BLOOD UREA NITROGEN 48 mg/dL (7-20); CARBON DIOXIDE 22 mmol/L (22-30); CHLORIDE 99 mmol/L (98-107); GLUCOSE 175 mg/dL (75-110); POTASSIUM 4.5 mmol/L (3.6-5.0)
[2020-08-19] MEDS: HEPARIN SOD (PORCINE) 5,000 UNIT/ML 1 ML VIAL SUBCUT SCH ×2 (06:15→14:09)
[2020-08-19] MEDS: MIDODRINE HCL 5 MG TABLET NG PRN (06:16)
--- NOTE | 2020-08-19 07:24 | Progress Note ---
Provider Note Provider Note: reviewd the ugi yesterday and discussed films iwth radiology there is no leak what is seen is the gastrojejunostomy (part of the jazmin limb and placed in case we needed endoscopic access to the hepatic jejunostomy) there is air in biliary system, consistent iwth a patent hepaticojejunostomy at this point pt has reached maximal progress as far as his surgery is concerened and can be discharged from surgery standpoint iwth his femi in place and he can be followed in surgical cllinic.
[2020-08-19] MEDS ORDERED: GUAIFENESIN SYRP 200 MG/10 ML UDC NG SCH (10:00)
[2020-08-19] MEDS ORDERED: OLANZAPINE 2.5 MG TABLET NG SCH (10:00)
[2020-08-19] MEDS ORDERED: CARVEDILOL 6.25 MG TABLET NG SCH (10:00)
[2020-08-19] MEDS ORDERED: DOCUSATE SODIUM 100 MG/10 ML UDC NG SCH (10:00)
[2020-08-19] MEDS: INSULIN GLARGINE,HUM.REC.ANLOG 1,000 UNIT/10 ML VIAL SUBCUT SCH (11:13)
--- NOTE | 2020-08-19 13:38 | PDOC DISCHARGE SUMMARY ---
Impression - Admit/DC Date/PCP Admission Date/Primary Care Provider: 07/30/20 13:37 JOSE HALL MD Discharge Date: 08/19/20 - Discharge Diagnosis (1) Chronic cholecystitis due to cholelithiasis with choledocholithiasis Is this a current diagnosis for this admission?: Yes (2) Acute renal failure superimposed on stage 5 chronic kidney disease, not on chronic dialysis Is this a current diagnosis for this admission?: Yes (3) Chronic anemia Is this a current diagnosis for this admission?: Yes (4) Essential hypertension Is this a current diagnosis for this admission?: Yes (5) Metabolic acidosis Is this a current diagnosis for this admission?: Yes (6) Nausea and vomiting Is this a current diagnosis for this admission?: Yes (7) Type 2 diabetes mellitus Is this a current diagnosis for this admission?: Yes (8) Abnormal findings on imaging of biliary tract Is this a current diagnosis for this admission?: Yes (9) GAURAV (acute kidney injury) Is this a current diagnosis for this admission?: Yes (10) Choledocholithiasis Is this a current diagnosis for this admission?: Yes (11) Vitamin K deficiency coagulation disorder Is this a current diagnosis for this admission?: Yes (12) Acute hypoxemic respiratory failure Is this a current diagnosis for this admission?: Yes (13) Anemia in chronic kidney disease (CKD) Is this a current diagnosis for this admission?: Yes (14) Biliary anastomotic leak Is this a current diagnosis for this admission?: Yes (15) Sepsis following intra-abdominal surgery Is this a current diagnosis for this admission?: Yes (16) Type 2 diabetes mellitus with chronic kidney disease and hypertension Is this a current diagnosis for this admission?: Yes - Assessment Summary: Given history of dysphagia and risk of aspiration pneumonia patient will benefit from having a hospital bed at home as he will require the head of the bed to be elevated more than 30 degrees most of the time. - Additional Information Resuscitation Status: Do Not Resuscitate Discharge Diet: Tube Feeding (Comments) Discharge Activity: Activity As Tolerated, Balance Activity w/Rest Referrals: JOSE HALL MD [Primary Care Provider] - Follow up as needed (Dr. Hall will see the patient in dialysis.) Prescriptions: Docusate Sodium [Colace Udc 100 mg/10 ml Oral Soln] 100 mg NG Q2D@1000 #30 udc Carvedilol [Coreg 6.25 mg Tablet] 12.5 mg NG Q12 #60 tablet Insulin Lispro [Humalog Insulin (Lispro) 100 unit/mL] 0 - 12 unit SUBCUT Q6 #3 vial Insulin Glargine,Hum.rec.anlog [Lantus Insulin 100 Unit/1 ml 10 ml] 7 unit SUBCUT QAM #3 vial Melatonin [Melatonin 5 mg Tablet] 10 mg NG QHS #30 tablet Midodrine HCl [Proamatine 5 mg Tablet] 5 mg NG .DIALYSIS PRN #12 tablet PRN Reason: Metoclopramide HCl [Reglan Oral Soln 10 mg/10 ml Udcup] 10 mg NG Q6A #10 udc Olanzapine [Zyprexa 2.5 mg Tablet] 2.5 mg NG DAILY #30 tablet Home Medications: Carvedilol [Coreg 6.25 mg Tablet] 12.5 mg NG Q12 #60 tablet 08/19/20 Docusate Sodium [Colace Udc 100 mg/10 ml Oral Soln] 100 mg NG Q2D@1000 #30 udc 08/19/20 Insulin Glargine,Hum.rec.anlog [Lantus Insulin 100 Unit/1 ml 10 ml] 7 unit SUBCUT QAM #3 vial 08/19/20 Insulin Lispro [Humalog Insulin (Lispro) 100 unit/mL] 0 - 12 unit SUBCUT Q6 #3 vial 08/19/20 Melatonin [Melatonin 5 mg Tablet] 10 mg NG QHS #30 tablet 08/19/20 Metoclopramide HCl [Reglan Oral Soln 10 mg/10 ml Udcup] 10 mg NG Q6A #10 udc 08/19/20 Midodrine HCl [Proamatine 5 mg Tablet] 5 mg NG .DIALYSIS PRN #12 tablet 08/19/20 Olanzapine [Zyprexa 2.5 mg Tablet] 2.5 mg NG DAILY #30 tablet 08/19/20 History of Present Illiness History of Present Illness: Per nephrology: "Patient is known to me with chronic kidney disease stage IV/V secondary to diabetic nephropathy with baseline creatinine around 4.0 associated with diabetes mellitus type 2 who I last saw in August 2019, hypertension, and hyperlipidemia who was admitted on July 28 with fatigue, Monday, anorexia, nausea, vomiting, diarrhea and near syncope causing fall during day of admission. Initial evaluation in the ED showed the patient was hypertensive with leukocytosis and elevated bilirubin and transaminase including alkaline phosphatase. CT of the abdomen showed cholelithiasis with questionable choledocholithiasis. On 07/30/2020 he underwent ERCP by Dr. 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 On 08/01/2020 he underwent laparoscopic cholecystectomy which was converted to open cholecystectomy with Kapil-en-Y hepatic jejunostomy by Dr. Schaffer. Postoperatively he was admitted in the ICU for closer monitoring. He had acute hypoxemic respiratory failure and hypotension postoperatively. He was successfully extubated though. He required 4 units of packed RBC, 1 unit FFP and 3 L of lactated Ringer's and 500 mL of normal saline. Apparently there was significant bile staining of the retroperitoneum behind the pancreas and the duodenum. He was started on metronidazole, ceftriaxone, vancomycin and fluconazole. Over the weekend the patient was monitored while in the ICU and surprisingly did well." Hospital Course Hospital Course: Per nephrology: "Patient is known to me with chronic kidney disease stage IV/V secondary to diabetic nephropathy with baseline creatinine around 4.0 associated with diabetes mellitus type 2 who I last saw in August 2019, hypertension, and hyperlipidemia who was admitted on July 28 with fatigue, Monday, anorexia, nausea, vomiting, diarrhea and near syncope causing fall during day of admission. Initial evaluation in the ED showed the patient was hypertensive with leukocytosis and elevated bilirubin and transaminase including alkaline phosphatase. CT of the abdomen showed cholelithiasis with questionable choledocholithiasis. On 07/30/2020 he underwent ERCP by Dr. 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 On 08/01/2020 he underwent laparoscopic cholecystectomy which was converted to open cholecystectomy with Kapil-en-Y hepatic jejunostomy by Dr. Schaffer. Postoperatively he was admitted in the ICU for closer monitoring. He had acute hypoxemic respiratory failure and hypotension postoperatively. He was successfully extubated though. He required 4 units of packed RBC, 1 unit FFP and 3 L of lactated Ringer's and 500 mL of normal saline. Apparently there was significant bile staining of the retroperitoneum behind the pancreas and the duodenum. He was started on metronidazole, ceftriaxone, vancomycin and fluconazole. Over the weekend the patient was monitored while in the ICU and surprisingly did well." 08/04/2020 Patient popped out of ICU overnight. Creatinine lower today. Blood cultures negative. Patient states he has not had a bowel movement yet and would like a bowel regimen started. He does have some abdominal pain from his recent surgery but other than that he has no new complaints. General surgery is following. 08/05/2020 Patient repeatedly states he feels fine and is doing well, however his bicarb is acutely dropped to 8 and his anion gap is 26. I am concerned that he may be developing an intra-abdominal infection from his recent surgery and I have ordered a CT of his chest/abdomen/pelvis to also help rule out a developing pneumonia. I discussed case with Dr. Schaffer as well as Dr. Hall. Patient did not get much dialysis as his blood pressure was quite low. Nephrology recommended giving albumin and have also started as needed midodrine to be given 1 hour prior to dialysis sessions. 08/06/2020 Patient doing quite poorly overnight on into this morning reportedly. Hemodynamically he remained stable thankfully. His hemoglobin acutely dropped and I transfused him 1 unit PRBC. He was given multiple units FFP overnight for coagulopathy and Dr. Wilfrido gates has given him multiple doses of vitamin K which seems to have brought his INR down considerably. Patient had what looked to be silvestre blood in his abdominal drain bulb. He likely has vitamin K deficiency from prolonged hospitalization and poor nutrition. I discussed the case with Dr. Schaffer who did not want the patient to get an NG tube as he is concerned about the anastomoses being damaged by this. It may be necessary to place an NG tube in order to give the patient adequate nutrition. Alternatively, we could attempt TPN though this is not a long-term solution. Creatinine lower today. Discussed case with nephrology who will have the patient dialyzed today after getting transfused. Transfer patient to [facility], low threshold for ICU transfer. I am concerned that if patient does not improve in the near future he may not survive this admission. He is extremely frail and weak. 08/07/2020 Patient seems to be doing a bit better today after being transfused blood and FFP yesterday and also getting vitamin K. His INR sharply corrected after getting the vitamin K. His blood pressure and hemoglobin are higher today. He is breathing comfortably on room air. Patient has extremely poor nutrition as he has barely eaten anything over the past several days. I discussed with nursing potentially getting him PPN/TPN though nephrology does not want him to have this. Also discussed possibility of an NG tube and tube feeds. 08/08/2020 Patient still continues to improve today. He has a bit of more color in his face today. He is having multiple bowel movements now and his INR has been fully corrected down to 1. Creatinine is notably lower. General surgery following. Hemoglobin rising 08/09/2020 Patient is having some coarse coughing and gurgling when he speaks. Discussed with nursing to check on his swallowing ability although he has been reportedly eating very well over the past few days. Blood pressure is mildly elevated. 08/10/2020 Patient states he is doing significantly better today from respiratory standpoint. He does sound less congested today compared to prior exams. General surgery is following and planning to place a permacath within the next few days. Patient is continued on antibiotics although these can likely complete very soon. Blood pressure elevated but will likely improve with dialy sis. Patient has no new complaints. He will need to go to SNF at discharge. Per Previous Physician: "08/11/2020. No acute events overnight. Saw patient this morning was comfortably sleeping but easily arousable, does not appear to be in any acute distress, has no complaint today, pending permacath placement by surgery. 08/12/2020. No acute events overnight. Patient is more awake and alert today, does not appear to be any apparent distress, is tolerating his feeds, denies any fever, chills, nausea, vomiting. 08/14/2020. No acute events overnight. Saw patient this morning while recei ving his hemodialysis, comfortably sitting in recliner, in no apparent distress, alert and oriented, offloaded with physical examination and answering questions appropriately, patient had his permacath placed and plan is to remove his Timur catheter, he is also been followed by surgery and plan is to have a HIDA scan today, patient is p.o. tolerant, stating that when he eats he coughs afterwards, speech therapy evaluation is pending, denies any fever, chills, nausea, vomiting. 08/15/2020. No acute events overnight. Unfortunately patient failed his modified barium swallow and recommendation is only ice chips, while he is receiving aggressive speech therapy, I contacted his sister who makes his medical decisions, I informed her that the best option at this time would be a PEG tube placement but unfortunately patient has not recommended PEG tube placement as he just had an abdominal surgery, other options would be either Dobbhoff tube or TPN, but unfortunately patient is not a candidate for TPN as he is end-stage renal and as per Dr. Hall his manager power he should not have any central lines in his upper extremities as he may need them for fistula for long-term hemodialysis. Family has consented for Dobbhoff tube while patient is receiving speech therapy and hope of recovering his dysphagia. Patient sister still wants Mr. Mancuso to be discharged home to stay with her. 08/16/2020. No acute events overnight. Saw patient this morning comfortably sleeping, easily arousable, cooperative with physical examination, denies any fever, chills, nausea, vomiting, diarrhea, constipation or any urinary symptoms. Patient has a nasogastric tube for his feeds and is stating is not bothering him much. His back pain has improved since being started on low-dose morphine. 08/17/2020. No acute events overnight. Patient is status post Dobbhoff tube placed, tolerating feeds, patient denies any fever, chills, nausea, vomiting, diarrhea, constipation or any urinary symptoms. Patient does not want to be transferred to SNF, he would like to go home with his sister who agrees with him. Patient is ready to be discharged home however discharge planners are working on arranging his home needs before he can safely discharged home." 08/18/2020 I had a lengthy discussion with the patient's sister, KERRY, about his CODE STATUS and she states she would like him to be DNR/DNI and she has always felt this way. CODE STATUS changed to reflect this decision. I expressed my concern to the patient going home with the sister including the patient may pull out his Dobbhoff and not get adequate nutrition and potentially pass away from this. Also stated he is high risk to pull out his dialysis catheter while he is being dialyzed and possibly harm himself this way. He is not a candidate for PEG tube as he may inadvertently harm himself if he pulls out his PEG tube causing peritonitis. All these things considered, the sister would like to take patient home with a Dobbhoff and feeding carried out until the patient pulls this out. I have started him on some low-dose Zyprexa to help keep him calm and hopefully avoid him pulling out the Dobbhoff tube. If the patient pulled out his Dobbhoff, the sister would like the patient to be transition to hospice at that point. Medical equipment is being delivered but is not at home yet. Patient's sister states she would like him to come home tomorrow. General surgery has ordered a CT scan to look for anastomotic leak mentioned on imaging done for Dobbhoff placement. 08/19/2020 General surgery reviewed patient's imaging results and stated the patient does not have an anastomotic leak. He cleared the patient for discharge and the patient would need to follow-up with him within 1 week. Patient does seem to be doing a bit better today and is more talkative and alert. Plan for his sister/MPOA is for him to go home and receive tube feeds through his Dobbhoff. She stated that if the patient pulled out his Dobbhoff again, she will forego having this replaced and would like the patient to be placed on hospice at that time. She requests that patient be DNR/DNI. (1) Chronic cholecystitis due to cholelithiasis with choledocholithiasis Is this a current diagnosis for this admission?: Yes Plan: Per Previous Physician: "Status post attempted laparoscopic cholecystectomy which was converted to open cholecystectomy with Kapil-en-Y hepatic jejunostomy 08/01/2020. On admission ERCP attempted by Dr. dahl found to have gallstone eroding through duct, procedure aborted. Pathology report negative for any dysplasia or malignancy. CT abdomen/pelvis to reevaluate abdomen 08/05: Did not show any acute findings other than some small amount of fluid collection, no abscess HIDA scan no sign of leakage. Received a complecte course of IV antibiotics. Stopped vancomycin as there is no evidence of MRSA infection Liver enzymes WNL. AUBREY drain in place. Surgery has signed off. Recommending outpatient follow-up for removal of AUBREY drain. Continue pain management supportive care, monitor in and out, monitor volume status and electrolytes." Deemed stable for DC by general surgery (2) Acute renal failure superimposed on stage 5 chronic kidney disease, not on chronic dialysis Qualifiers: Acute renal failure type: unspecified Qualified Code(s): N17.9 - Acute kidney failure, unspecified; N18.5 - Chronic kidney disease, stage 5 Is this a current diagnosis for this admission?: Yes Plan: Per Previous Physician: "Euvolemic. Electrolytes WNL. Renal function gradually improving. oh HD MWF, Permcarth placement Nephrology on board. Monitor in and out, monitor electrolytes and volume status, replace electrolytes as needed. Avoid nephrotoxic meds. Patient may be appropriate for hospice in the near future especially if he begins pulling on his dialysis catheter (3) Chronic anemia Is this a current diagnosis for this admission?: Yes Plan: Per Previous Physician: "Likely due to surgery and chronic renal failure complicated by acute on chronic due to blood loss anemia from coagulopathy Status post 1 unit PRBC and multipleFFP transfusions on 08/06 Receiving Procrit by nephrology. H&H is stable. No acute sign of bleeding. Monitor H&H. Supportive transfusions." (4) Essential hypertension Is this a current diagnosis for this admission?: Yes (5) Metabolic acidosis Is this a current diagnosis for this admission?: Yes (6) Nausea and vomiting Qualifiers: Vomiting type: unspecified Vomiting Intractability: unspecified Qualified Code(s): R11.2 - Nausea with vomiting, unspecified Is this a current diagnosis for this admission?: Yes (7) Type 2 diabetes mellitus Qualifiers: Diabetes mellitus correction insulin use: without correction use Diabetes mellitus complication status: with kidney complications Diabetes mellitus complication detail: with chronic kidney disease Chronic kidney disease stage: stage 5, not on chronic dialysis Qualified Code(s): E11.22 - Type 2 diabetes mellitus with diabetic chronic kidney disease; N18.5 - Chronic kidney disease, stage 5 Is this a current diagnosis for this admission?: Yes (8) Abnormal findings on imaging of biliary tract Is this a current diagnosis for this admission?: Yes (9) GAURAV (acute kidney injury) Is this a current diagnosis for this admission?: Yes (10) Choledocholithiasis Is this a current diagnosis for this admission?: Yes (11) Vitamin K deficiency coagulation disorder Is this a current diagnosis for this admission?: Yes (12) Acute hypoxemic respiratory failure Is this a current diagnosis for this admission?: Yes Plan: Resolved. SPO2 WNL on RA. Continue as needed DuoNebs, incentive spirometry and flutter valve. Physical Exam Vital Signs: Temp Pulse Resp BP Pulse Ox 97.8 F 98 18 118/66 100 08/19/20 10:45 08/19/20 11:04 08/19/20 11:04 08/19/20 11:04 08/19/20 11:04 Intake & Output 08/18/20 08/19/20 08/20/20 06:59 06:59 06:59 Intake Total 440 658 50 Output Total 672 355 6464 [facility] -140 -54 -055 Weight 56.1 kg 55.7 kg Exam: General appearance: PRESENT: no acute distress, appears thin and weak, more awake and alert today, States he would like to go home Head exam: PRESENT: atraumatic, normocephalic Eye exam: PRESENT: conjunctiva pale Mouth exam: PRESENT: moist Respiratory exam: PRESENT: clear to auscultation deven. ABSENT: rales, rhonchi, wheezes Cardiovascular exam: PRESENT: RRR. ABSENT: diastolic murmur, rubs, systolic murmur GI/Abdominal exam: PRESENT: normal bowel sounds, soft, nontender, healing. ABSENT: distended, guarding, mass, organolmegaly, rebound Rectal exam: PRESENT: deferred Neurological exam: PRESENT: alert, awake, oriented to person, oriented to place Psychiatric exam: PRESENT: appropriate affect, normal mood Skin exam: PRESENT: dry, intact, warm Results Laboratory Results: WBC 7.6 10^3/uL (4.0-10.5) 08/19/20 04:42 RBC 2.53 10^6/uL (4.35-5.55) L 08/19/20 04:42 Hgb 7.6 g/dL (13.5-17.0) L 08/19/20 04:42 Hct 23.5 % (37.9-51.0) L 08/19/20 04:42 MCV 93 fl (80-97) 08/19/20 04:42 MCH 30.2 pg (27.0-33.4) 08/19/20 04:42 MCHC 32.5 g/dL (32.0-36.0) 08/19/20 04:42 RDW 15.8 % (11.5-14.0) H 08/19/20 04:42 Plt Count 232 10^3/uL (150-450) 08/19/20 04:42 Lymph % (Auto) 19.9 % (13-45) 08/19/20 04:42 [place] % (Auto) 9.8 % (3-13) 08/19/20 04:42 Eos % (Auto) 2.8 % (0-6) 08/19/20 04:42 Baso % (Auto) 0.8 % (0-2) 08/19/20 04:42 Reticulocyte # 0.045 10^6/uL (0.028-0.122) 08/01/20 04:51 Absolute Neuts (auto) 5.1 10^3/uL (1.7-8.2) 08/19/20 04:42 Absolute Lymphs (auto) 1.5 10^3/uL (0.5-4.7) 08/19/20 04:42 Absolute Monos (auto) 0.7 10^3/uL (0.1-1.4) 08/19/20 04:42 Absolute Eos (auto) 0.2 10^3/uL (0.0-0.6) 08/19/20 04:42 Absolute Basos (auto) 0.1 10^3/uL (0.0-0.2) 08/19/20 04:42 Total Counted 100 08/10/20 04:17 Seg Neutrophils % 66.7 % (42-78) 08/19/20 04:42 Seg Neuts % (Manual) 64 % (42-78) 08/10/20 04:17 Band Neutrophils % Cancelled 08/06/20 01:04 Lymphocytes % (Manual) 24 % (13-45) 08/10/20 04:17 Atypical Lymphs % Cancelled 08/06/20 01:04 Monocytes % (Manual) 9 % (3-13) 08/10/20 04:17 Eosinophils % (Manual) 3 % (0-6) 08/10/20 04:17 Basophils % (Manual) 0 % (0-2) 08/10/20 04:17 Metamyelocytes % Cancelled 08/06/20 01:04 Myelocytes % Cancelled 08/06/20 01:04 Promyelocytes % Cancelled 08/06/20 01:04 Immature Leukocytes % Cancelled 08/06/20 01:04 Abs Neuts (Manual) 4.2 10^3/uL (1.7-8.2) 08/10/20 04:17 Abs Lymphs (Manual) 1.6 10^3/uL (0.5-4.7) 08/10/20 04:17 Abs Monocytes (Manual) 0.6 10^3/uL (0.1-1.4) 08/10/20 04:17 Absolute Eos (Manual) 0.2 10^3/uL (0.0-0.6) 08/10/20 04:17 Abs Basophils (Manual) 0.0 10^3/uL (0.0-0.2) 08/10/20 04:17 Nucleated RBCs 4 /100 WBC (0) 08/08/20 05:55 Differential Comment Cancelled 08/06/20 01:04 Hypersegmented Neuts Cancelled 08/06/20 01:04 Smudge Cells Cancelled 08/06/20 01:04 Toxic Granulation 1+ 08/10/20 04:17 Toxic Vacuolation Cancelled 08/06/20 01:04 Dohle Bodies Cancelled 08/06/20 01:04 Ban Rods Cancelled 08/06/20 01:04 WBC Morphology Comment Cancelled 08/06/20 01:04 Platelet Estimate Cancelled 08/07/20 06:00 Clumped Platelets Cancelled 08/06/20 01:04 Large Platelets Cancelled 08/06/20 01:04 Giant Platelets Cancelled 08/06/20 01:04 Platelet Comment ADEQUATE 08/10/20 04:17 Polychromasia Cancelled 08/06/20 01:04 Hypochromasia Cancelled 08/06/20 01:04 Poikilocytosis SLIGHT 08/10/20 04:17 Basophilic Stippling Cancelled 08/06/20 01:04 Anisocytosis SLIGHT 08/10/20 04:17 Microcytosis Cancelled 08/06/20 01:04 Macrocytosis Cancelled 08/06/20 01:04 Spherocytes Cancelled 08/06/20 01:04 Pappenheimer Bodies Cancelled 08/06/20 01:04 Sickle Cells Cancelled 08/06/20 01:04 Target Cells Cancelled 08/06/20 01:04 Tear Drop Cells SLIGHT 08/10/20 04:17 Ovalocytes 1+ 08/08/20 05:55 Stomatocytes Cancelled 08/06/20 01:04 Helmet Cells SLIGHT 08/10/20 04:17 Lizarraga-Bigelow Bodies Cancelled 08/06/20 01:04 Mauldin Cells Cancelled 08/06/20 01:04 Acanthocytes (Spur) Cancelled 08/06/20 01:04 Rouleaux Cancelled 08/06/20 01:04 Schistocytes SLIGHT 08/08/20 05:55 RBC Morph Comment Cancelled 08/06/20 01:04 Retic Count (auto) 2.06 % (0.66-2.85) 08/01/20 04:51 PT 13.5 SEC (11.4-15.4) 08/13/20 06:00 INR 1.01 08/13/20 06:00 APTT 52.4 SEC (23.5-35.8) H 08/06/20 09:11 Fibrinogen 669 mg/dL (209-497) H 08/06/20 09:11 D-Dimer 3.41 ug/mL (0.00-0.50) H 08/06/20 09:11 Sodium 131.5 mmol/L (137-145) L 08/19/20 04:42 Potassium 4.5 mmol/L (3.6-5.0) 08/19/20 04:42 Chloride 99 mmol/L (98-107) 08/19/20 04:42 Carbon Dioxide 22 mmol/L (22-30) 08/19/20 04:42 Anion Gap 11 (5-19) 08/19/20 04:42 BUN 48 mg/dL (7-20) H 08/19/20 04:42 Creatinine 4.90 mg/dL (0.52-1.25) H 08/19/20 04:42 Est GFR ( Amer) 14 (>60) L 08/19/20 04:42 Est GFR (Non-Af Amer) Cancelled 08/03/20 06:53 Est GFR (MDRD) Non-Af 12 (>60) L 08/19/20 04:42 Glucose 175 mg/dL (75-110) H 08/19/20 04:42 POC Glucose 199 mg/dL (70-110) H 08/19/20 06:07 Lactic Acid 1.0 mmol/L (0.7-2.1) 07/28/20 22:00 Calcium 8.0 mg/dL (8.4-10.2) L 08/19/20 04:42 Phosphorus 8.5 mg/dL (2.5-4.5) H 08/17/20 06:06 Magnesium 2.4 mg/dL (1.6-2.3) H 08/18/20 05:48 Iron 41.6 ug/dL (49-181) L 08/01/20 04:51 TIBC 217 ug/dL (250-450) L 08/01/20 04:51 % Saturation 19 % 08/01/20 04:51 Ferritin 543.00 ng/mL (17.9-464.0) H 08/01/20 04:51 Total Bilirubin 0.8 mg/dL (0.2-1.3) 08/16/20 06:24 Direct Bilirubin 0.7 mg/dL (0.0-0.4) H 08/16/20 06:24 Neonat Total Bilirubin Not Reportable 08/16/20 06:24 Neonat Direct Bilirubin Not Reportable 08/16/20 06:24 Neonat Indirect Bili Not Reportable 08/16/20 06:24 AST 20 U/L (17-59) 08/16/20 06:24 ALT 15 U/L (<50) 08/16/20 06:24 Alkaline Phosphatase 260 U/L (38-126) H 08/16/20 06:24 Troponin I 0.023 ng/mL 07/28/20 18:30 Total Protein 5.0 g/dL (6.3-8.2) L 08/16/20 06:24 Albumin 2.5 g/dL (3.5-5.0) L 08/16/20 06:24 Prealbumin 13.0 mg/dL (17.6-36.0) L 08/10/20 04:17 Triglycerides 462 mg/dL (<150) H 08/10/20 07:32 Lipase 102.2 U/L (23-300) 08/01/20 17:50 EGFR Cancelled 08/03/20 06:53 Vitamin B12 978.0 pg/mL (239-931) H 08/01/20 04:51 Folate 10.10 ng/mL (>2.76) 08/01/20 04:51 PTH Intact 318.2 pg/mL (10.0-65.0) H 08/01/20 04:51 Urine Color JAYANT 07/28/20 18:30 Urine Appearance CLEAR 07/28/20 18:30 Urine pH 6.0 (5.0-9.0) 07/28/20 18:30 Ur Specific [place] 1.011 07/28/20 18:30 Urine Protein 100 mg/dL (NEGATIVE) H 07/28/20 18:30 Urine Glucose (UA) >=500 mg/dL (NEGATIVE) H 07/28/20 18:30 Urine Ketones 20 mg/dL (NEGATIVE) H 07/28/20 18:30 Urine Blood SMALL (NEGATIVE) H 07/28/20 18:30 Urine Nitrite (Reflex) NEGATIVE (NEGATIVE) 07/28/20 18:30 Urine Bilirubin NEGATIVE (NEGATIVE) 07/28/20 18:30 Urine Urobilinogen 2.0 mg/dL (<2.0) H 07/28/20 18:30 Leukocyte Esterase Rfl NEGATIVE (NEGATIVE) 07/28/20 18:30 Urine RBC (Auto) 1 /HPF 07/28/20 18:30 Urine WBC (Reflex) 2 /HPF 07/28/20 18:30 Urine Ascorbic Acid NEGATIVE (NEGATIVE) 07/28/20 18:30 POC Stool Occult Blood NEGATIVE (NEGATIVE) 07/28/20 20:57 COVID-19 Source See comment 07/29/20 06:55 COVID-19 ([facility]) Not Detected (Not Detect) 07/29/20 06:55 Hep Bs Antigen Negative (Negative) 07/31/20 14:24 Hep Bs Antibody, Quant <3.1 mIU/mL (Immunity>9) L 07/31/20 14:24 Hep B Core Total Ab Negative (Negative) 07/31/20 14:24 HCV Quantitation HCV Not Detected IU/mL (.) 07/31/20 14:24 HCV RNA PCR Test Info Comment (.) 07/31/20 14:24 Slides for Path Review Cancelled 08/07/20 06:00 Blood Type A POSITIVE 08/05/20 22:55 Blood Type Confirm A POSITIVE 08/05/20 22:55 Antibody Screen NEGATIVE 08/05/20 22:55 Crossmatch See Detail 08/05/20 22:55 07/28/20 18:30 Troponin I 0.023 Impressions: Chest X-Ray 07/28/20 19:12 IMPRESSION: No evidence of acute cardiopulmonary process. Abdomen/Pelvis CT 07/28/20 19:15 IMPRESSION: Large calculus located within the gallbladder neck or cystic duct with associated mild intrahepatic biliary duct dilatation, raising the possibility of Mirizzi syndrome. Correlate for obstructive laboratories and suggest confirmation with MRCP. At that time, the additional calcification located about the liver hilum can be reassessed as it is indeterminate. Findings compatible with chronic calcific pancreatitis. However, the pancreatic appears relatively normal in bulk, similar to the previous exam dated 07/29/2015. Small amount of subhepatic free fluid. Small hiatal hernia with circumferential distal esophageal wall thickening. Correlate for esophagitis. TECHNICAL DOCUMENTATION: Quality ID # [id number]: Final reports with documentation of one or more dose reduction techniques (e.g., Automated exposure control, adjustment of the mA and/or kV according to patient size, use of iterative reconstruction technique) copyright 2011 [employer]- All Rights Reserved Abdomen Ultrasound 07/28/20 20:00 IMPRESSION: 1. Gallstones, gallbladder wall thickening, intrahepatic biliary dilatation and nonspecific possible inflammatory material surrounding the gallbladder. These findings are suspicious for acute cholecystitis. Gray's sign was negative but this does not exclude acute cholecystitis. 2. Common bile duct is only mildly dilated. . Question common bile duct stones. 3. Fatty liver. Low position of an atrophic right kidney in the pelvis. Abdomen MRI 07/29/20 04:06 IMPRESSION: 1.1 cm calcific density appears to localize to the common bile duct. The gallbladder is largely decompressed and mild intrahepatic biliary dilatation persists. Associated right upper quadrant inflammatory changes. Other chronic and incidental findings as detailed above. Catheter Placement 07/30/20 00:00 IMPRESSION: IMAGE(S) OBTAINED DURING PROCEDURE. Fluoroscopy 07/30/20 00:00 IMPRESSION: IMAGE(S) OBTAINED DURING PROCEDURE. Chest X-Ray 07/31/20 00:00 IMPRESSION: Small amount of medial left basilar subsegmental atelectasis. No pleural effusion. Cholangiogram 08/01/20 00:00 IMPRESSION: IMAGE(S) OBTAINED DURING PROCEDURE. Fluoroscopy 08/01/20 00:00 IMPRESSION: IMAGE(S) OBTAINED DURING PROCEDURE. Chest X-Ray 08/03/20 05:00 IMPRESSION: Small left pleural effusion. Chest X-Ray 08/05/20 00:00 IMPRESSION: Worsening aeration of the lung bases. Abdomen/Pelvis CT 08/06/20 00:00 IMPRESSION: 1. POST CHOLECYSTECTOMY. PERCUTANEOUS SURGICAL DRAIN PRESENT. SMALL AMOUNT OF FREE FLUID IN THE RIGHT UPPER QUADRANT. NO FINDINGS TO SUGGEST DISCRETE ABSCESS. 2. OTHER CHRONIC CHANGES INCLUDING PANCREATIC CALCIFICATIONS, PELVIC RIGHT KIDNEY, AND LEFT INGUINAL HERNIA WITH A SMALL PORTION OF THE BLADDER PROTRUDING INTO THE PROXIMAL INGUINAL CANAL. NO OTHER SIGNIFICANT OR ACUTE ABDOMINAL PROCESS. Chest CT 08/06/20 00:00 IMPRESSION: LARGE BILATERAL PLEURAL EFFUSIONS. LOWER LOBE AIRSPACE DISEASE MOST LIKELY DUE TO COMPRESSIVE ATELECTASIS ALTHOUGH PNEUMONIA CANNOT BE EXCLUDED. NO OTHER SIGNIFICANT FINDING ON NON-CONTRASTED CHEST CT. Guidance Fluoroscopy 08/13/20 00:00 IMPRESSION: IMAGE(S) OBTAINED DURING PROCEDURE. Chest X-Ray 08/13/20 14:10 IMPRESSION: No pneumothorax. New venous access catheter in expected location. Hepatobiliary Scan Nuclear Medicine 08/14/20 00:00 IMPRESSION: Prior cholecystectomy. No extravasation. Modified Barium Swallow 08/14/20 00:00 IMPRESSION: SEVERE LARYNGEAL PENETRATION AND TRACHEAL ASPIRATION OF ALL CONSISTENCIES GIVEN. PLEASE SEE SPEECH PATHOLOGIST REPORT FOR OTHER FINDINGS AND RECOMMENDATIONS. KUB X-Ray 08/15/20 12:55 IMPRESSION: Enteric tube with the tip projecting in the region of the gastric antrum. Nonobstructive bowel gas pattern. Clear lung bases. Gastrostomy Tube Placement 08/17/20 00:00 IMPRESSION: SUCCESSFUL FLUOROSCOPIC GUIDED PLACEMENT OF A NJ TUBE. DOBHOFF TUBE IS AT THE 90 CM MALIKA AT THE RIGHT NARES. Guidance Fluoroscopy 08/17/20 00:00 IMPRESSION: SUCCESSFUL FLUOROSCOPIC GUIDED PLACEMENT OF A NJ TUBE. DOBHOFF TUBE IS AT THE 90 CM MALIKA AT THE RIGHT NARES. Abdomen/Pelvis CT 08/18/20 00:00 IMPRESSION: No extravasation of oral contrast in the right upper quadrant Gastrostomy Tube Placement 08/18/20 00:00 IMPRESSION: Successful nasoenteric dobhoff tube placement with the tip at the duodenum jejunal junction. During fluoroscopy, leakage of contrast from the antropyloric stomach into the retroperitoneum and adjacent to the right upper quadrant drain occurred Guidance Fluoroscopy 08/18/20 00:00 IMPRESSION: Successful nasoenteric dobhoff tube placement with the tip at the duodenum jejunal junction. During fluoroscopy, leakage of contrast from the antropyloric stomach into the retroperitoneum and adjacent to the right upper quadrant drain occurred Plan Plan of Treatment: Follow-up with PCP Follow-up with GI Follow-up with general surgery Tube feeding via Dohalley Gonzalez POA/sister, patient will be transitioned to hospice if he pulls out his feeding tube again Time Spent: Greater than 30 Minutes Stroke Is this a Stroke Patient?: No Acute Heart Failure Is this a Heart Failure Patient?: No
[2020-08-19] MEDS ORDERED: INFLUENZA QUAD (6MOS+) 2020-21 VAC 0.5 ML SYR IM ONE ×2 (14:58→16:08)
[2020-08-19 16:28] VITALS: BP 169/72
--- NOTE | 2020-08-19 19:32 | PDOC PROGRESS REPORT ---
Subjective Progress Note for:: 08/19/20 Subjective:: I am seeing the patient during dialysis this morning. He looks better today compared to yesterday and is more awake and oriented. He denied any pain when I was seeing him on dialysis. He had a new Dobbhoff placed for feeding. His blood pressure is relatively low but is acceptable. He is currently tolerating dialysis. Reason For Visit: CHOLEDOCHOLITHIASIS, NEAR SYNCOPE, NAUSEA Physical Exam Vital Signs: Temp Pulse Resp BP Pulse Ox 97.4 F 83 16 121/63 100 08/19/20 08:11 08/19/20 07:00 08/19/20 04:00 08/19/20 06:12 08/19/20 04:00 Intake & Output 08/18/20 08/19/20 08/20/20 06:59 06:59 06:59 Intake Total 440 658 50 Output Total 835 675 Balance -395 -17 50 Weight 56.1 kg 55.7 kg Vitals during dialysis: Blood pressure of 109/63, heart rate of 83, blood flow rate of 250 mL/min and dialysate flow rate of 600 mL/min. Exam: General appearance: PRESENT: no acute distress, cooperative, fairly developed and fairly nourished Head exam: PRESENT: atraumatic, normocephalic Eye exam: PRESENT: conjunctiva pale, PERRLA. ABSENT: scleral icterus Neck exam: ABSENT: JVD Respiratory exam: PRESENT: Diminished breath sounds. ABSENT: crackles, rales, rhonchi, unlabored, wheezes Cardiovascular exam: PRESENT: Regular rate rhythm -+S1, +S2. ABSENT: diastolic murmur, systolic murmur GI/Abdominal exam: PRESENT: normal bowel sounds, soft. ABSENT: guarding, mass, tenderness Extremities exam: ABSENT: No edema Neurological exam: PRESENT: alert, awake, oriented to person, place and time. Skin exam: PRESENT: dry, warm, pallor Cardiovascular exam: PRESENT: +S1, +S2 GI/Abdominal exam: PRESENT: normal bowel sounds, soft, tenderness - Mildly tender in the right upper quadrant.. ABSENT: organomegaly Results Laboratory Results: 08/19/20 04:42 08/19/20 04:42 08/19/20 08/19/20 04:42 04:42 WBC 7.6 RBC 2.53 L Hgb 7.6 L Hct 23.5 L MCV 93 MCH 30.2 MCHC 32.5 RDW 15.8 H Plt Count 232 Seg Neutrophils % 66.7 Sodium 131.5 L Potassium 4.5 Chloride 99 Carbon Dioxide 22 Anion Gap 11 BUN 48 H Creatinine 4.90 H Est GFR ( Amer) 14 L Glucose 175 H Calcium 8.0 L 07/28/20 18:30 Troponin I 0.023 Impressions: Abdomen Ultrasound 07/28/20 20:00 IMPRESSION: 1. Gallstones, gallbladder wall thickening, intrahepatic biliary dilatation and nonspecific possible inflammatory material surrounding the gallbladder. These findings are suspicious for acute cholecystitis. Gray's sign was negative but this does not exclude acute cholecystitis. 2. Common bile duct is only mildly dilated. . Question common bile duct stones. 3. Fatty liver. Low position of an atrophic right kidney in the pelvis. Abdomen MRI 07/29/20 04:06 IMPRESSION: 1.1 cm calcific density appears to localize to the common bile duct. The gallbladder is largely decompressed and mild intrahepatic biliary dilatation persists. Associated right upper quadrant inflammatory changes. Other chronic and incidental findings as detailed above. Catheter Placement 07/30/20 00:00 IMPRESSION: IMAGE(S) OBTAINED DURING PROCEDURE. Cholangiogram 08/01/20 00:00 IMPRESSION: IMAGE(S) OBTAINED DURING PROCEDURE. Fluoroscopy 08/01/20 00:00 IMPRESSION: IMAGE(S) OBTAINED DURING PROCEDURE. Chest CT 08/06/20 00:00 IMPRESSION: LARGE BILATERAL PLEURAL EFFUSIONS. LOWER LOBE AIRSPACE DISEASE MOST LIKELY DUE TO COMPRESSIVE ATELECTASIS ALTHOUGH PNEUMONIA CANNOT BE EXCLUDED. NO OTHER SIGNIFICANT FINDING ON NON-CONTRASTED CHEST CT. Chest X-Ray 08/13/20 14:10 IMPRESSION: No pneumothorax. New venous access catheter in expected location. Hepatobiliary Scan Nuclear Medicine 08/14/20 00:00 IMPRESSION: Prior cholecystectomy. No extravasation. Modified Barium Swallow 08/14/20 00:00 IMPRESSION: SEVERE LARYNGEAL PENETRATION AND TRACHEAL ASPIRATION OF ALL CONSISTENCIES GIVEN. PLEASE SEE SPEECH PATHOLOGIST REPORT FOR OTHER FINDINGS AND RECOMMENDATIONS. KUB X-Ray 08/15/20 12:55 IMPRESSION: Enteric tube with the tip projecting in the region of the gastric antrum. Nonobstructive bowel gas pattern. Clear lung bases. Abdomen/Pelvis CT 08/18/20 00:00 IMPRESSION: No extravasation of oral contrast in the right upper quadrant Gastrostomy Tube Placement 08/18/20 00:00 IMPRESSION: Successful nasoenteric dobhoff tube placement with the tip at the duodenum jejunal junction. During fluoroscopy, leakage of contrast from the antropyloric stomach into the retroperitoneum and adjacent to the right upper quadrant drain occurred Guidance Fluoroscopy 08/18/20 00:00 IMPRESSION: Successful nasoenteric dobhoff tube placement with the tip at the duodenum jejunal junction. During fluoroscopy, leakage of contrast from the antropyloric stomach into the retroperitoneum and adjacent to the right upper quadrant drain occurred Assessment & Plan - Diagnosis (1) CKD (chronic kidney disease), stage V Is this a current diagnosis for this admission?: Yes Plan: Secondary to diabetic nephropathy with known proteinuria. Patient has now reached ESRD and would require chronic long-term dialysis treatment. When I last saw him a year ago he was on the verge of going to ESRD with all complications associated with it. Patient understood that he is going to need long-term chronic dialysis treatment. He now have a functioning PermCath and outpatient dialysis has been arranged by the case management at [facility]. We will do dialysis today for 3 hours, using the patient's PermCath, with 2 potassium bath, blood flow rate of 250 mL per minute, dialysate flow rate of 600 mL per minute, ultrafiltration 1 L as tolerated, no heparin and Retacrit with 25,000 units during dialysis intravenously. Patient is being closely monitored especially his blood pressure. If patient is discharged today, his next dialysis will be on Monday at [facility]. Patient is to continue to follow with surgery and his primary care provider for all other issues apart from his chronic kidney disease/ESRD. (2) Acute renal failure superimposed on stage 5 chronic kidney disease, not on chronic dialysis Qualifiers: Acute renal failure type: unspecified Qualified Code(s): N17.9 - Acute kidney failure, unspecified; N18.5 - Chronic kidney disease, stage 5 Is this a current diagnosis for this admission?: Yes Plan: Patient's kidney function has gotten worse this admission due to his acute illness which puts him more to ESRD from CKD 5. Plan as above. (3) Metabolic acidosis Is this a current diagnosis for this admission?: Yes Plan: Resolved. (4) Chronic cholecystitis due to cholelithiasis with choledocholithiasis Is this a current diagnosis for this admission?: Yes Plan: Status post cholecystectomy initially laparoscopic converted to open procedure on 08/01/2020. Status post ERCP on 07/30/2020. Surgery following. HIDA scan negative. (5) Sepsis following intra-abdominal surgery Is this a current diagnosis for this admission?: Yes Plan: He was given a dose of Zosyn initially. Completed ceftriaxone, and met ronidazole. Vancomycin discontinued. Resolved. (6) Hypoalbuminemia Is this a current diagnosis for this admission?: Yes Plan: On Nepro tube feeding via NG tube yesterday until he pulled out his NG tube. For Dobbhoff insertion by radiologist today. (7) Anemia in chronic kidney disease (CKD) Qualifiers: Chronic kidney disease stage: stage 4 (severe) Qualified Code(s): N18.4 - Chronic kidney disease, stage 4 (severe); D63.1 - Anemia in chronic kidney disease Is this a current diagnosis for this admission?: Yes Plan: Patient has chronic anemia of chronic kidney disease and has refused to take NOELLE therapy for the past 1 to 2 years. Most recent iron is also low at 41.6, TSAT 19 and ferritin of 543. He was given blood transfusions. On Retacrit during dialysis treatment. (8) Type 2 diabetes mellitus Qualifiers: Diabetes mellitus pie icer machine insulin use: without snf use Diabetes mellitus complication status: with kidney complications Diabetes mellitus complication detail: with chronic kidney disease Chronic kidney disease stage: stage 5, not on chronic dialysis Qualified Code(s): E11.22 - Type 2 diabetes mellitus with diabetic chronic kidney disease; N18.5 - Chronic kidney disease, stage 5 Is this a current diagnosis for this admission?: Yes Plan: Suboptimally controlled. (9) Chronic kidney disease-mineral and bone disorder Is this a current diagnosis for this admission?: Yes Plan: Phosphorus is 8.5 with PTH of 318.2 and normal corrected calcium. Once the patient is taking medications orally he would need phosphorus binder and vitamin D analogs. We will hold for now. (10) Dysphagia Qualifiers: Dysphagia type: oropharyngeal phase Qualified Code(s): R13.12 - Dysphagia, oropharyngeal phase Is this a current diagnosis for this admission?: Yes Plan: On tube feedings now via the newly inserted Dobbhoff yesterday. Encourage patient not to pull any tubes that he has including a Dobbhoff and explained to him that that is necessary for his nutrition. He seems understood. Either surgery or primary care provider has to follow-up any progress on his swallowing and needs to be re-evaluated to see if he can eat orally. (11) Pleural effusion Is this a current diagnosis for this admission?: Yes Plan: Resolved on recent chest x-ray. (12) Coagulopathy Is this a current diagnosis for this admission?: Yes Plan: Resolved. (13) Essential hypertension Is this a current diagnosis for this admission?: Yes Plan: On carvedilol but occasionally requiring midodrine especially on dialysis. (14) Acute hypoxemic respiratory failure Is this a current diagnosis for this admission?: Yes Plan: Resolved. - Time Time with patient: 15-25 minutes
[2020-08-19] MEDS ORDERED: MELATONIN 5 MG TABLET NG SCH (22:00)
== END 2020-08-19 18:00 | disposition home health service (06) | DRG 408 ==
LOC: ER 16:43 → EH 07-30 13:37 → 4N 07-30 21:11 → ICU 08-01 14:50 → 4N 08-03 18:23 → 3W 08-06 12:45
PROVIDERS: ADMIT Hospitalist; ATTEND Internal Medicine
PROC: 0FC98ZZ Extirpation of Matter from Common Bile Duct, Via Natural or Artificial Opening Endoscopic (ICD-10-PCS; 2020-07-30)
PROC: 0FC90ZZ Extirpation of Matter from Common Bile Duct, Open Approach (ICD-10-PCS; 2020-08-01)
PROC: 0D160ZA Bypass Stomach to Jejunum, Open Approach (ICD-10-PCS; 2020-08-01)
PROC: 0FJ44ZZ Inspection of Gallbladder, Percutaneous Endoscopic Approach (ICD-10-PCS; 2020-08-01)
PROC: 30233K1 Transfusion of Nonautologous Frozen Plasma into Peripheral Vein, Percutaneous Approach (ICD-10-PCS; 2020-08-01)
PROC: 30233N1 Transfusion of Nonautologous Red Blood Cells into Peripheral Vein, Percutaneous Approach (ICD-10-PCS; 2020-08-01)
PROC: 0FT40ZZ Resection of Gallbladder, Open Approach (ICD-10-PCS; principal; 2020-08-01 08:00)
PROC: 0F170ZB Bypass Common Hepatic Duct to Small Intestine, Open Approach (ICD-10-PCS; 2020-08-01 08:00)
PROC: 5A1D70Z Performance of Urinary Filtration, Intermittent, Less than 6 Hours Per Day (ICD-10-PCS; 2020-08-03)
PROC: 06H033Z Insertion of Infusion Device into Inferior Vena Cava, Percutaneous Approach (ICD-10-PCS; 2020-08-03)
PROC: 02HV33Z Insertion of Infusion Device into Superior Vena Cava, Percutaneous Approach (ICD-10-PCS; 2020-08-13)
PROC: B548ZZA Ultrasonography of Superior Vena Cava, Guidance (ICD-10-PCS; 2020-08-13)
PROC: 3E02340 Introduction of Influenza Vaccine into Muscle, Percutaneous Approach (ICD-10-PCS; 2020-08-19)
DX: K80.65 Calculus of gallbladder and bile duct with chronic cholecystitis with obstruction (principal); J95.822 Acute and chronic postprocedural respiratory failure; A41.9 Sepsis, unspecified organism; N17.9 Acute kidney failure, unspecified; E87.2 Acidosis; N18.5 Chronic kidney disease, stage 5; D68.9 Coagulation defect, unspecified; J90 Pleural effusion, not elsewhere classified; K91.89 Other postprocedural complications and disorders of digestive system; I12.9 Hypertensive chronic kidney disease with stage 1 through stage 4 chronic kidney disease, or unspecified chronic kidney disease; E11.22 Type 2 diabetes mellitus with diabetic chronic kidney disease; N18.9 Chronic kidney disease, unspecified; E78.5 Hyperlipidemia, unspecified; E56.1 Deficiency of vitamin K; M19.90 Unspecified osteoarthritis, unspecified site; D72.828 Other elevated white blood cell count; R55 Syncope and collapse; K26.9 Duodenal ulcer, unspecified as acute or chronic, without hemorrhage or perforation; Z91.81 History of falling; E86.0 Dehydration; D63.1 Anemia in chronic kidney disease; E83.9 Disorder of mineral metabolism, unspecified; E11.21 Type 2 diabetes mellitus with diabetic nephropathy; E88.09 Other disorders of plasma-protein metabolism, not elsewhere classified; R13.12 Dysphagia, oropharyngeal phase; Z78.1 Physical restraint status; Z23 Encounter for immunization; Z20.828 Contact with and (suspected) exposure to other viral communicable diseases; Y83.2 Surgical operation with anastomosis, bypass or graft as the cause of abnormal reaction of the patient, or of later complication, without mention of misadventure at the time of the procedure; Z79.4 Long term (current) use of insulin
CPT/HCPCS: 00532; 00732; 00790; 36415; 36430; 43262; 43277; 44500; 71045; 71250; 74018; 74176; 74181; 74230; 74300; 74328; 74340; 76705; 77001; 78226; 80048; 80053; 81001; 82270; 82607; 82728; 82746; 82962; 83540; 83550; 83605; 83690; 83735; 83970; 84100; 84134; 84478; 84484; 85025; 85027; 85045; 85379; 85384; 85610; 85730; 86317; 86704; 86850; 86900; 86901; 86920; 87040; 87070; 87340; 87522; 87635; 88304; 90471; 90686; 93005; 93010; 94667; 94799; 96361; 96365; 96366; 96375; 96376; 99140; 99291; 99292; A9537; C1769; C9113; C9290; C9803; G0008; J0171; J0330; J0690; J0696; J1100; J1450; J1610; J1644; J1815; J1940; J2060; J2250; J2270; J2370; J2405; J2543; J2704; J2710; J2765; J3010; J3370; J3430; J3480; J3490; J7030; J7040; J7050; J7060; J7120; P9016; P9017; P9047; Q5105; Q9967; Q9969

== ENCOUNTER 2020-08-20 14:48 | Emergency (ER) | payer MEDICARE ==
--- NOTE | 2020-08-20 15:34 | ER Document Report ---
ED General - General Chief Complaint: Choked/Choking Stated Complaint: POSSIBLE CHOKING Time Seen by Provider: 08/20/20 15:04 Primary Care Provider: JOSE HALL MD [Primary Care Provider] - Follow up as needed Notes: 70-year-old male presents with aspiration coughing and choking. The patient was hospitalized for over 3 weeks with multiple illnesses including cholecystectomy choledocholithiasis with multiple complications ICU stay, possible perforation/leak, has a small bowel feeding tube which was placed 2 days ago. In the note on its placement it says that there may be some leakage to the retroperitoneum? That said in the discharge summary it says there was a CT done surgery was consulted and it was deemed not to be leaking. He went home, the feeding tube was used for the first time this morning by the home health aide, and soon after the feed began the patient began vomiting tube feeds profusely through his mouth with resultant coughing choking and shortness of breath. His coughing and choking has resolved and he remains slightly short of breath. He was hypoxic to low 80s on arrival to the emergency department. In the patient's chart notes it says that he was very close to hospice and that his sister/decision-maker was informed that if he pulled his feeding tube or he otherwise malfunctioned it would be optional to transition to hospice. At that point she agreed. TRAVEL OUTSIDE OF THE [place] IN LAST 30 DAYS: No - Related Data Allergies/Adverse Reactions: No Known Allergies Allergy (Verified 01/24/19 09:32) Past Medical History - General Information source: Patient, Relative - Social History Smoking Status: Never Smoker Family History: Reviewed & Not Pertinent - Past Medical History Cardiac Medical History: Reports: Hx Hypercholesterolemia, Hx Hypertension Denies: Hx Coronary Artery Disease, Hx Heart Attack Pulmonary Medical History: Denies: Hx Asthma, Hx Bronchitis, Hx COPD, Hx Pneumonia Neurological Medical History: Denies: Hx Cerebrovascular Accident, Hx Seizures Endocrine Medical History: Reports: Hx Diabetes Mellitus Type 2 Renal/ Medical History: Denies: Hx Peritoneal Dialysis Musculoskeletal Medical History: Reports Hx Arthritis Past Surgical History: Reports: Hx Cholecystectomy, Hx Orthopedic Surgery - right shoulder - Immunizations Hx Diphtheria, Pertussis, Tetanus Vaccination: No Hx Pneumococcal Vaccination: 03/23/13 Review of Systems - Review of Systems Notes: REVIEW OF SYSTEMS GEN: Weakness ENT: Denies sore throat, nasal discharge, ear pain EYES: Denies blurry vision, eye pain, discharge CV: Denies chest pain, palpitations, edema RESP: Breath GI: Denies abdominal pain, nausea, vomiting, diarrhea MSK: Denies joint pain/swelling, edema, SKIN: Denies rash, skin lesions LYMPH: Denies swollen glands/lymph nodes NEURO: Denies headache, focal weakness or numbness, dizziness PSYCH: Denies depression, suicidal or homicidal ideation PHYSICAL EXAMINATION General: Ill-appearing malnourished and thin Head: Atraumatic, normocephalic ENT: Mouth normal, oropharynx moist, no exudates or tonsillar enlargement Eyes: Conjunctiva normal, pupils equal, lids normal Neck: No JVD, supple, no guarding CVS: Normal rate, regular rhythm, no murmurs Resp: Breath sounds at both bases with tachypnea GI: Abdominal incisions appear to be healing well Ext: No deformities, no edema, normal range of motion in upper and lower ext Back: No CVA or midline TTP Skin: No rash, warm Lymphatic: No lymphadeopathy noted Neuro: Awake, alert. Face symmetric. GCS 15. Physical Exam - Vital signs Vitals: Resp BP Pulse Ox 17 155/97 H 100 08/20/20 14:55 08/20/20 14:55 08/20/20 14:55 Course - Re-evaluation Re-evalutation: 08/20/20 15:33 Patient presents with likely aspiration event secondary to feeding tube which could be malpositioned. He has some clinical signs of aspiration pneumonitis including hypoxia and coarse breath sounds Pneumonia is also possibility although I cannot imagine is developed this quickly. There is also some question of an anastomotic leak or perforated stoma ch on recent imaging but he was discharged and everyone seemed sure at that point that it was okay I had a lengthy discussion with he and his decision-maker/family member. I offered home hospice care, to avoid admission because there are no visitors and his family member is afraid that he would without being able to see his family. I consulted our social studies department chair for hospice and discharge planning 08/20/20 18:31 Patient saturation normalized somehow on room air. Remains slightly tachycardic . parking worker and I had a conversation together during which the patient did admitted that he would like to come in the hospital get his feeding tube fixed and is not ready for hospice. His sister who is the power of compliance attorney agrees with this even though he is unable to make his own decisions I discussed him with Dr. Arnold from hospitalist service who is wary of admitting and will come down and see the patient and speak with the sister After period time Dr. Arnold let me know that he wants the patient discharged home with the feedings he works and will arrange outpatient via primary care and home health. I will follow up with our social studies department chair to ensure this happens. We flush the feeding tube, it works. Of note the patient is still mildly hypoxic and mildly tachycardic but is comfortable being discharged per Dr. Arnold's conversation. I have discussed with the patient there likely diagnosis, aftercare plan, follow-up plans and my usual and customary return precautions. They verbalized understanding of this. - Vital Signs Vital signs: Temp Pulse Resp BP Pulse Ox 99 F 21 H 142/85 H 100 08/20/20 15:11 08/20/20 16:30 08/20/20 16:30 08/20/20 16:30 - Laboratory Result Diagrams: 08/20/20 16:30 08/20/20 15:03 Laboratory results interpreted by me: 08/20/20 08/20/20 15:03 16:30 RBC 2.96 L Hgb 8.9 L Hct 27.6 L RDW 16.0 H Seg Neuts % (Manual) 85 H Lymphocytes % (Manual) 10 L Abs Neuts (Manual) 8.6 H Sodium 135.8 L Chloride 93 L BUN 35 H Creatinine 4.18 H Est GFR ( Amer) 17 L Est GFR (MDRD) Non-Af 14 L Glucose 204 H Calcium 8.2 L Critical Care Note - Critical Care Note Total time excluding time spent on procedures (mins): 31 Comments: The above patient is critically ill. Not including procedures, but including direct re-evaluations, speaking with patient and/or consultants, interpreting results, and documenting, I spent the total amount of minute listed listed above on critical care time Discharge - Discharge Clinical Impression: Aspiration pneumonitis Feeding tube dysfunction Qualifiers: Encounter type: initial encounter Qualified Code(s): T85.598A - Other mechanical complication of other gastrointestinal prosthetic devices, implants and grafts, initial encounter Condition: Fair Disposition: HOME, SELF-CARE Additional Instructions: You have been evaluated by the hospitalist, Dr. MICHAEL He has determined it is safe to discharge to home, and is made a plan as outlined in your conversation with him. Please follow-up with the patient's primary care doctor home health and hospice as needed. Please return to the ER for any concerns at all including feeding tube dysfunction, altered mental status or fever. We will call tomorrow to speak with home health regarding slowing down the tube feeds, which should be going at 20 mL/h, and to get a new pump if needed. Referrals: JOSE HALL MD [Primary Care Provider] - Follow up as needed
[2020-08-20 15:39] LABS: ANION GAP 14 (5-19); BLOOD UREA NITROGEN 35 mg/dL (7-20); CALCIUM 8.2 mg/dL (8.4-10.2); CARBON DIOXIDE 29 mmol/L (22-30); CHLORIDE 93 mmol/L (98-107); GLUCOSE 204 mg/dL (75-110)
--- NOTE | 2020-08-20 16:14 | RADIOLOGY REPORT (SQ) ---
EXAM DESCRIPTION: CHEST SINGLE VIEW IMAGES COMPLETED DATE/TIME: 08/20/2020 3:41 pm REASON FOR STUDY: ASPIRATION COMPARISON: 08/13/2020 EXAM PARAMETERS: NUMBER OF VIEWS: One view. TECHNIQUE: Single frontal radiographic view of the chest acquired. RADIATION DOSE: NA LIMITATIONS: None. FINDINGS: LUNGS AND PLEURA: No opacities, masses or pneumothorax. No pleural effusion. MEDIASTINUM AND HILAR STRUCTURES: No masses. Contour normal. HEART AND VASCULAR STRUCTURES: Heart normal in size. Normal vasculature. BONES: No acute findings. HARDWARE: Feeding tube extends into the stomach. The tip of the tube is not seen but is directed tow tucker the gastric antrum. Dual-lumen catheter on the left. Tip of the catheter is in the superior marco a cava. OTHER: No other significant finding. IMPRESSION: NO ACUTE RADIOGRAPHIC FINDING IN THE CHEST. TECHNICAL DOCUMENTATION: JOB ID: [id number] 2010 [employer]- All Rights Reserved Reading location - IP/workstation name: [email or web address]
[2020-08-20 17:01] LABS: HEMATOCRIT 27.6 % (37.9-51.0); HEMOGLOBIN 8.9 g/dL (13.5-17.0); MEAN CORPUSCULAR HGB CONC 32.2 g/dL (32.0-36.0); MEAN CORPUSCULAR VOLUME 93 fl (80-97); PLATELET COUNT 363 10^3/uL (150-450); RED BLOOD COUNT 2.96 10^6/uL (4.35-5.55); WHITE BLOOD COUNT 10.1 10^3/uL (4.0-10.5)
[2020-08-20 17:29] LABS: ABSOLUTE MONOCYTES # (MANUAL) 0.5 10^3/uL (0.1-1.4); BASOPHILS % (MANUAL) 0 % (0-2); EOSINOPHILS % (MANUAL) 0 % (0-6); LYMPHOCYTES % (MANUAL) 10 % (13-45); MONOCYTES % (MANUAL) 5 % (3-13); SEGMENTED NEUTROPHILS % (MAN) 85 % (42-78); TOTAL CELLS COUNTED 100
[2020-08-20 17:31] LABS: ANISOCYTOSIS 1+; OVALOCYTES SLIGHT; PLATELET COMMENT ADEQUATE; POLYCHROMASIA SLIGHT; STOMATOCYTES SLIGHT
--- NOTE | 2020-08-20 17:37 | PDOC CONSULTATION ---
Consultation Consult Date: 08/20/20 Attending physician:: AURELIA VACA Provider Consulted: DORIS MICHAEL Consult reason:: Feeding tube malfunction History of Present Illness Admission Date/PCP: JOSE HALL MD History of Present Illness: TINA YUAN is a 70 year old male with previously noted past medical history who presents with a history of Dobbhoff feeding tube malfunction causing vomiting. I had a long discussion with the patient and his sister at bedside who described to me that the patient's tube feed was started at 40 cc/h and had run for approximately 3 hours without being flushed. At that time patient began vomiting tube feed and this was immediately stopped and patient was brought to the ED. Upon discussing this with the patient, he is now fully alert and oriented x4 and answers all my questions clearly, he is surprisingly much improved from his discharge day. The sister is understandably frustrated that his feeding tube and pump failed this early into his discharge. Per my discussion with nursing yesterday patient was discharged with the wrong tube feed pump and free water flushes were not able to be done on the pump she was gi marco. This necessitated the patient's sister doing manual free water flushes. We need social work to get the patient the correct pump can do automatic free water flushes and the patient will need to have a lower rate of tube feed initially which can be graduated very slowly as he tolerates it. He was having no significant residuals at 20 cc/h in the hospital and I believe this is the appropriate starting rate for him. His chest x-ray is completely clear. His labs are unremarkable in the setting of known ESRD. Patient has an oxygen saturation of 97% on room air as I took off his nonrebreather but he clearly did not need. He has a bit of mild mucus congestion in his upper airway which was present throughout essentially his entire admission. He is nontoxic appearing and again I believe he is significantly improved from his discharge day. He would be best served sent home with a properly functioning Dobbhoff tube and arrangement to get them the correct tube feed pump they can do automatic free water flushes. I recommend the flushes be done at least every 2 hours rather than every 3 hours which was the previous plan per home health nursing. Past Medical History Cardiac Medical History: Reports: Hyperlipidema, Hypertension Denies: Coronary Artery Disease, Myocardial Infarction Pulmonary Medical History: Denies: Asthma, Bronchitis, Chronic Obstructive Pulmonary Disease (COPD), Pneumonia Neurological Medical History: Denies: Seizures Endocrine Medical History: Reports: Diabetes Mellitus Type 2 Musculoskeltal Medical History: Reports: Arthritis Hematology: Denies: Anemia Past Surgical History Past Surgical History: Reports: Cholecystectomy, Orthopedic Surgery - right shoulder Social History Smoking Status: Never Smoker Frequency of Alcohol Use: None - Advance Directive Resuscitation Status: Do Not Resuscitate Family History Family History: Reviewed & Not Pertinent Parental Family History Reviewed: Yes Children Family History Reviewed: Yes Sibling(s) Family History Reviewed.: Yes Medication/Allergy Home Medications: Carvedilol [Coreg 6.25 mg Tablet] 12.5 mg NG Q12 #60 tablet 08/19/20 Docusate Sodium [Colace Udc 100 mg/10 ml Oral Soln] 100 mg NG Q2D@1000 #30 udc 08/19/20 Insulin Glargine,Hum.rec.anlog [Lantus Insulin 100 Unit/1 ml 10 ml] 7 unit SUBCUT QAM #3 vial 08/19/20 Insulin Lispro [Humalog Insulin (Lispro) 100 unit/mL] 0 - 12 unit SUBCUT Q6 #3 vial 08/19/20 Melatonin [Melatonin 5 mg Tablet] 10 mg NG QHS #30 tablet 08/19/20 Metoclopramide HCl [Reglan Oral Soln 10 mg/10 ml Udcup] 10 mg NG Q6A #10 udc 08/19/20 Midodrine HCl [Proamatine 5 mg Tablet] 5 mg NG .DIALYSIS PRN #12 tablet 08/19/20 Olanzapine [Zyprexa 2.5 mg Tablet] 2.5 mg NG DAILY #30 tablet 08/19/20 Allergies/Adverse Reactions: No Known Allergies Allergy (Verified 01/24/19 09:32) Review of Systems All systems: reviewed and no additional remarkable complaints except as stated - As noted in HPI Physical Exam Vital Signs: Temp Pulse Resp BP Pulse Ox 99 F 21 H 142/85 H 100 08/20/20 15:11 08/20/20 16:30 08/20/20 16:30 08/20/20 16:30 Intake & Output 08/19/20 08/20/20 08/21/20 06:59 06:59 06:59 Weight 46.8 kg Exam: General appearance: PRESENT: no acute distress, well-developed, well-nourished, states he feels okay and would like to go home Head exam: PRESENT: atraumatic, normocephalic Eye exam: PRESENT: conjunctiva pink. ABSENT: scleral icterus Mouth exam: PRESENT: moist Respiratory exam: PRESENT: clear to auscultation deven. ABSENT: rales, rhonchi, wheezes Cardiovascular exam: PRESENT: RRR. ABSENT: diastolic murmur, rubs, systolic murmur GI/Abdominal exam: PRESENT: normal bowel sounds, soft. ABSENT: distended, guarding, mass, organolmegaly, rebound, tenderness Neurological exam: PRESENT: alert, awake, oriented to person, oriented to place, oriented to time, oriented to situation Psychiatric exam: PRESENT: appropriate affect, normal mood Skin exam: PRESENT: dry, intact, warm Results Laboratory Results: 08/20/20 15:03 08/20/20 08/20/20 15:03 15:03 WBC Cancelled RBC Cancelled Hgb Cancelled Hct Cancelled MCV Cancelled MCH Cancelled MCHC Cancelled RDW Cancelled Plt Count Cancelled Seg Neutrophils % Cancelled Sodium 135.8 L Potassium 4.0 Chloride 93 L Carbon Dioxide 29 Anion Gap 14 BUN 35 H Creatinine 4.18 H Est GFR ( Amer) 17 L Glucose 204 H Calcium 8.2 L Impressions: Chest X-Ray 08/20/20 15:08 IMPRESSION: NO ACUTE RADIOGRAPHIC FINDING IN THE CHEST. Assessment and Plan - Diagnosis (1) Malfunction of gastrostomy tube Is this a current diagnosis for this admission?: Yes Plan: Labs unremarkable in the setting of ESRD, patient nontoxic-appearing, afebrile, oxygen saturation 97% on room air, chest x-ray completely clear without any evidence of aspiration pneumonitis or pneumonia, mentation significantly improved ED nursing will need to get feeding tube working again, this cannot be accomplished he may need to have Dobbhoff replaced by IR Tube feeding can resume at a much lower rate, recommend 20 cc/h rather than 40 cc/h, can gradually increase this as he tolerates it Recommend free water flushing of feeding tube every 2 hours rather than every 3 Patient needs to be given the initially ordered tube feed pump but can do automatic free water flushes. Possible the situation can be avoided in the future if this is done Hospice may still be needed in the near future if patient becomes encep halopathic again and begins pulling at his dialysis catheter and feeding tube. Thankfully, patient has had a significant improvement in his mentation since discharge and he is now fully alert and oriented. Readmission to the hospital with expose the patient to a great number of deadly pathogens including COVID- 19. I discussed this with the patient's sister and she believes he would be best served at home rather than in the hospital given this risk. I strongly believe that the patient contracts COVID-19, he will succumb to this illness and . I voiced this concern to the patient and his sister and they agreed. Plan discussed in detail with Dr. Vaca who will have nursing arrange the above recommendations - Time Time Spent with patient: 35 or more minutes Medications reviewed and adjusted accordingly: Yes Anticipated Discharge Disposition: Home with Home Health Anticipated Discharge Timeframe: within 24 hours
[2020-08-20 19:48] VITALS: BP 132/75
== END 2020-08-20 19:48 | disposition home or self-care (01) ==
LOC: ER 14:48
DX: J69.0 Pneumonitis due to inhalation of food and vomit (principal); T85.598A Other mechanical complication of other gastrointestinal prosthetic devices, implants and grafts, initial encounter; Y73.8 Miscellaneous gastroenterology and urology devices associated with adverse incidents, not elsewhere classified; R00.0 Tachycardia, unspecified; I10 Essential (primary) hypertension; E11.9 Type 2 diabetes mellitus without complications; Z90.49 Acquired absence of other specified parts of digestive tract
CPT/HCPCS: 36415; 71045; 80048; 85025; 99284

== ENCOUNTER 2020-08-21 09:44 | Emergency (ER) | payer MEDICARE ==
--- NOTE | 2020-08-21 10:37 | ER Document Report ---
ED General - General Stated Complaint: FEEDING TUBE ISSUES Time Seen by Provider: 08/21/20 10:11 Primary Care Provider: JOSE HALL MD [Primary Care Provider] - Follow up as needed TRAVEL OUTSIDE OF THE [place] IN LAST 30 DAYS: No - HPI Notes: Chief complaint: Feeding tube replacement History of present illness: 70-year-old male presents with dislodged feeding tube. The patient was hospitalized for over 3 weeks with multiple illnesses including cholecystectomy choledocholithiasis with multiple complications ICU stay, possible perforation/leak, has a small bowel feeding tube which was placed 3 days ago. He was seen in the ED yesterday by Dr. Washington after he had an apparent episode of aspiration it was determined that the infusion pump they were using was not working appropriately. He was seen by discharge planning team and ultimately decision was felt to be resolved and family decided they wanted to take him home. He is on DNR/DNI status. In the patient's chart notes it says that he was very close to hospice and that his sister/decision-maker was informed that if he pulled his feeding tube or he otherwise malfunctioned it would be optional to transition to hospice. At that point she agreed. Apparently patient pulled the tube during the night. Patient states that this time he would like to have the tube reinserted and sister spoken with discharge planning team and also had a similar request. - Related Data Allergies/Adverse Reactions: No Known Allergies Allergy (Verified 01/24/19 09:32) Past Medical History - General Information source: Patient, Relative, [facility] Records - Social History Smoking Status: Unknown if Ever Smoked Frequency of alcohol use: None Drug Abuse: None Family History: Reviewed & Not Pertinent - Past Medical History Cardiac Medical History: Reports: Hx Hypercholesterolemia, Hx Hypertension Denies: Hx Coronary Artery Disease, Hx Heart Attack Pulmonary Medical History: Denies: Hx Asthma, Hx Bronchitis, Hx COPD, Hx Pneumonia Neurological Medical History: Denies: Hx Cerebrovascular Accident, Hx Seizures Endocrine Medical History: Reports: Hx Diabetes Mellitus Type 2 Renal/ Medical History: Reports: Hx End Stage Renal Disease. Denies: Hx Peritoneal Dialysis Musculoskeletal Medical History: Reports Hx Arthritis Past Surgical History: Reports: Hx Cholecystectomy, Hx Orthopedic Surgery - right shoulder - Immunizations Hx Diphtheria, Pertussis, Tetanus Vaccination: No Hx Pneumococcal Vaccination: 03/23/13 Review of Systems - Review of Systems Notes: Constitutional: Negative for fever. HENT: Negative for sore throat. Eyes: Negative for visual changes. Cardiovascular: Negative for chest pain. Respiratory: Negative for shortness of breath. Gastrointestinal: Negative for abdominal pain, vomiting or diarrhea. Genitourinary: Negative for dysuria. Musculoskeletal: Negative for back pain. Skin: Negative for rash. Neurological: Negative for headaches, weakness or numbness. 10 point ROS negative except as marked above and in HPI. Physical Exam - Vital signs Vitals: Pulse Ox 92 08/21/20 09:44 - Notes Notes: GENERAL: Frail somewhat chronically ill-appearing elderly male. SKIN: Good turgor no rashes. HEAD: Normocephalic atraumatic. EYES: PERRLA. EOMI. Conjunctivae and sclerae clear. EARS: CANALS AND TMS CLEAR. NOSE: CLEAR. MOUTH: Moist mucosa. Good dentition. No stridor or edema. No drooling. NECK: Supple. No masses or thyromegaly. No adenopathy. Carotids 2+ without bruits. No JVD. BACK: Symmetrical without tenderness. CHEST: Respirations unlabored. Breath sounds clear and symmetrical. HEART: Regular rhythm. No murmur gallop or rub. ABDOMEN: Multiple surgical wounds present with dressings intact. Soft nontender without masses, organomegaly or rebound. Bowel sounds normally active. No bruits. GENITALIA: Deferred. EXTREMITIES: No edema. No calf tenderness. Cap refill less than 1.5 seconds. Dorsalis pedis and posterior tibial pulses 3+ and symmetrical. NEUROLOGICAL: GCS 15. Alert and oriented x3. Fluent speech. Cranial nerves II through XII intact. Sensorimotor and cerebellar normal. Normal tone. PSYCHIATRIC: Flat affect. Course - Re-evaluation Re-evalutation: 08/21/20 10:37 Patient appears stable at his recent baseline status. Patient and daughter agree they want the tube replaced. We will send him to interventional radiology for replacement of a Dobbhoff tube under fluoroscopic guidance. 08/21/20 11:49 Interventional radiologist does replace the Dobbhoff tube without difficulty. I used a small plastic stay and sutured this to the chest wall with 2 interrupted sutures of 3-0 nylon after infiltrating with 3 cc of 1% lidocaine. Procedure was well-tolerated. Family will resume tube feedings as per prior instruction. - Vital Signs Vital signs: Temp Pulse Resp BP Pulse Ox 15 158/81 H 95 08/21/20 09:48 08/21/20 09:48 08/21/20 09:48 Discharge - Discharge Clinical Impression: Complication of feeding tube Condition: Stable Disposition: HOME, SELF-CARE Additional Instructions: Resume tube feedings as per prior instruction. Referrals: JOSE HALL MD [Primary Care Provider] - Follow up as needed
[2020-08-21] MEDS ORDERED: LIDOCAINE 1% INJ-PF (10 MG/ML) 30 ML SDV ONE (11:40)
--- NOTE | 2020-08-21 12:35 | RADIOLOGY REPORT (SQ) ---
EXAM DESCRIPTION: INTRO/GI TUBE W/FLUORO IMAGES COMPLETED DATE/TIME: 08/21/2020 11:27 am REASON FOR STUDY: dubhoff placement COMPARISON: None. TECHNIQUE: Live fluoroscopic guidance. RADIATION DOSE: 3 minutes 11 seconds of fluoroscopy was used. 1 images saved to PACS. LIMITATIONS: None. FINDINGS: The patient was brought to the fluoroscopy room and placed supine on the fluoroscopy table . A NJ-tube was advanced through the right nostril through the stomach and ending in the 3rd portion of the duodenum. Approximately 50 mL of non ionic contrast was injected through the catheter to conf irm placement. A fluoroscopic spot film was saved to PACs demonstrating catheter tip within the 3rd t o 4th portion of the duodenum. The Dobhoff is 90 cm in the right nares. IMPRESSION: Successful fluoroscopic guided placement of a NJ tube. COMMENT: Quality ID 145: Final reports for procedures using fluoroscopy that document radiation exp osure indices, or exposure time and number of fluorographic images (if radiation exposure indices are not available) TECHNICAL DOCUMENTATION: JOBD ID: [id number] 2010 [employer]- All Rights Reserved Reading location - IP/workstation name: [email or web address] [id number]
[2020-08-21 13:18] VITALS: BP 136/82
== END 2020-08-21 14:27 | disposition home or self-care (01) ==
LOC: ER 09:44
DX: T85.9XXA Unspecified complication of internal prosthetic device, implant and graft, initial encounter (principal); X58.XXXA Exposure to other specified factors, initial encounter
CPT/HCPCS: 74340; 99284

== ENCOUNTER 2020-08-24 10:18 | Emergency (ER) | payer MEDICARE ==
[2020-08-24] MEDS ORDERED: LORAZEPAM 0.5 MG TABLET PO ONE (11:05)
--- NOTE | 2020-08-24 16:33 | RADIOLOGY REPORT (SQ) ---
EXAM DESCRIPTION: INTRO/GI TUBE W/FLUORO; INTRO LONG GI TUBE (MILLAB) IMAGES COMPLETED DATE/TIME: 08/24/2020 4:11 pm; 08/24/2020 4:09 pm REASON FOR STUDY: DOBHOFF came out; NEED DOBHOFF COMPARISON: None. TECHNIQUE: Live fluoroscopic guidance. RADIATION DOSE: Fluoro time 15.6 minutes 1 images saved to PACS. LIMITATIONS: None. FINDINGS: The patient was brought to the fluoroscopy room and placed supine on the fluoroscopy table . A Dobhoff tube was advanced through the right nostril through the stomach and ending in the 3rd por tion of the duodenum. Approximately 10 mL of non ionic contrast was injected through the catheter to confirm placement. A fluoroscopic spot film was saved to PACs demonstrating catheter tip within the 3rd to 4th portion of the duodenum. IMPRESSION: Successful fluoroscopic guided placement of a Dobhoff catheter. COMMENT: Quality ID 145: Final reports for procedures using fluoroscopy that document radiation exp osure indices, or exposure time and number of fluorographic images (if radiation exposure indices are not available) TECHNICAL DOCUMENTATION: JOBD ID: [id number] 2010 [employer]- All Rights Reserved Reading location - IP/workstation name: [email or web address] [id number]
--- NOTE | 2020-08-24 16:33 | RADIOLOGY REPORT (SQ) ---
EXAM DESCRIPTION: INTRO/GI TUBE W/FLUORO; INTRO LONG GI TUBE (MILLAB) IMAGES COMPLETED DATE/TIME: 08/24/2020 4:11 pm; 08/24/2020 4:09 pm REASON FOR STUDY: DOBHOFF came out; NEED DOBHOFF COMPARISON: None. TECHNIQUE: Live fluoroscopic guidance. RADIATION DOSE: Fluoro time 15.6 minutes 1 images saved to PACS. LIMITATIONS: None. FINDINGS: The patient was brought to the fluoroscopy room and placed supine on the fluoroscopy table . A Dobhoff tube was advanced through the right nostril through the stomach and ending in the 3rd por tion of the duodenum. Approximately 10 mL of non ionic contrast was injected through the catheter to confirm placement. A fluoroscopic spot film was saved to PACs demonstrating catheter tip within the 3rd to 4th portion of the duodenum. IMPRESSION: Successful fluoroscopic guided placement of a Dobhoff catheter. COMMENT: Quality ID [id number]: Final reports for procedures using fluoroscopy that document radiation exp osure indices, or exposure time and number of fluorographic images (if radiation exposure indices are not available) TECHNICAL DOCUMENTATION: JOBD ID: [id number] 2010 [employer]- All Rights Reserved Reading location - IP/workstation name: [email or web address] [id number]
--- NOTE | 2020-08-24 17:37 | ER Document Report ---
ED General - General Chief Complaint: Problem with Feeding Tube Stated Complaint: FEEDING TUBE PROBLEMS Time Seen by Provider: 08/24/20 10:56 Primary Care Provider: MANSOOR GONSALES PA-C [Primary Care Provider] - Follow up as needed Mode of Arrival: Medic Information source: Patient TRAVEL OUTSIDE OF THE [place] IN LAST 30 DAYS: No - HPI Notes: Patient presents with complaints that his nasogastric tube was pulled out in the middle the night. He states he does not know how this happened but that he does have trouble sleeping becomes agitated. In reviewing old records it appears the patient has been here several times for similar problems. Patient was here yesterday and at that time had the NG tube adhered to a chest clamp that was then sewed to his chest wall. However patient still managed to dislodge the NG tube. There is been no other significant complaints. No vomiting or diarrhea. Patient is a chronic aspirator who requires NG tube. Family is currently in discussions with hospice for care of the patient at this time. There is been no fevers sweats or chills. - Related Data Allergies/Adverse Reactions: No Known Allergies Allergy (Verified 08/24/20 10:28) Home Medications: no changes from last inpatient visit here at [facility] Past Medical History - General Information source: Patient - Social History Smoking Status: Former Smoker Chew tobacco use (# tins/day): No Frequency of alcohol use: None Drug Abuse: None Family History: Reviewed & Not Pertinent Patient has homicidal ideation: No - Past Medical History Cardiac Medical History: Reports: Hx Hypercholesterolemia, Hx Hypertension Denies: Hx Coronary Artery Disease, Hx Heart Attack Pulmonary Medical History: Denies: Hx Asthma, Hx Bronchitis, Hx COPD, Hx Pneumonia Neurological Medical History: Denies: Hx Cerebrovascular Accident, Hx Seizures Endocrine Medical History: Reports: Hx Diabetes Mellitus Type 2 Renal/ Medical History: Reports: Hx End Stage Renal Disease. Denies: Hx Peritoneal Dialysis Musculoskeletal Medical History: Reports Hx Arthritis Past Surgical History: Reports: Hx Cholecystectomy, Hx Orthopedic Surgery - right shoulder - Immunizations Hx Diphtheria, Pertussis, Tetanus Vaccination: No Hx Pneumococcal Vaccination: 03/23/13 Review of Systems - Review of Systems Constitutional: denies: Chills, Fever Cardiovascular: denies: Chest pain, Palpitations Respiratory: denies: Cough, Short of breath -: Yes All other systems reviewed and negative Physical Exam - Vital signs Vitals: Temp Pulse Resp BP Pulse Ox 98.1 F 81 18 140/77 H 97 08/24/20 11:07 08/24/20 11:07 08/24/20 11:07 08/24/20 11:07 08/24/20 11:07 Interpretation: Normal - General General appearance: Appears well, Alert - HEENT Head: Normocephalic, Atraumatic Eyes: Normal Pupils: PERRL - Respiratory Respiratory status: No respiratory distress Chest status: Nontender Breath sounds: Normal Chest palpation: Normal - Cardiovascular Rhythm: Regular Heart sounds: Normal auscultation Murmur: No - Abdominal Inspection: Other - femi in place Distension: No distension Bowel sounds: Normal Tenderness: Tender - mild lower abd pain Organomegaly: No organomegaly - Back Back: Normal, Nontender - Extremities General upper extremity: Normal inspection, Nontender, Normal color, Normal ROM, Normal temperature General lower extremity: Normal inspection, Nontender, Normal color, Normal ROM, Normal temperature, Normal weight bearing. No: Aguila's sign - Neurological Mikayla Coma Scale Eye Opening: Spontaneous [place] Coma Scale Verbal: Oriented [place] Coma Scale Motor: Obeys Commands Mikayla Coma Scale Total: 15 Speech: Normal Sensory: Normal - Psychological Associated symptoms: Normal affect, Normal mood - Skin Skin Temperature: Warm Skin Moisture: Dry Skin Color: Normal Course - Re-evaluation Re-evalutation: 08/24/20 17:35 Top of was replaced. I did discuss the case with the surgeon who stated there was no better way to secure the Dobbhoff than what is currently being done. Patient will be referred to the surgeon's office for further discussion of a more permanent source of tube feeding. - Vital Signs Vital signs: Temp Pulse Resp BP Pulse Ox 97.9 F 97 20 134/87 H 99 08/24/20 16:04 08/24/20 16:04 08/24/20 16:04 08/24/20 16:04 08/24/20 16:04 - Diagnostic Test Radiology reviewed: Image reviewed, Reports reviewed Discharge - Discharge Clinical Impression: Nasogastric tube removed by patient Condition: Stable Disposition: HOME, SELF-CARE Additional Instructions: Please call Dr. Clayton's office as soon as possible to be seen and evaluated in the office for possible alternatives to nasogastric tube feedings Referrals: MADDY CLAYTON MD [ACTIVE STAFF] - Follow up in 3-5 days
[2020-08-24 18:04] VITALS: BP 142/78
== END 2020-08-24 18:01 | disposition home or self-care (01) ==
LOC: ER 10:18
DX: Z46.59 Encounter for fitting and adjustment of other gastrointestinal appliance and device (principal); R10.819 Abdominal tenderness, unspecified site; I10 Essential (primary) hypertension; E11.9 Type 2 diabetes mellitus without complications; Z87.891 Personal history of nicotine dependence
CPT/HCPCS: 99284; 74340; 44500; C1769; A9270

== ENCOUNTER 2020-09-03 17:39 | Emergency (ER) | payer MEDICARE ==
--- NOTE | 2020-09-03 20:17 | ER Document Report ---
ED GI/ - General Chief Complaint: Displaced G-tube Stated Complaint: G TUBE ISSUES Time Seen by Provider: 09/03/20 20:26 Mode of Arrival: Stretcher Information source: Relative Notes: Patient is a 70-year-old brought into the emergency room by his sister who complaint that his nasogastric tube came out this morning. The sister states that she is his [employer]inct police [employer] he was needing to have a bowel movement she attempted to get him out of bed when she did somehow the NG tube got hooked and pulled out of his nose. She states that this is the seventh time that has occurred since being placed. Patient has a recent medical history and [place] of having a gallbladder problem where he had open gallbladder surgery there was some surgeries performed secondary to intestinal blockages. In a patient kidneys started to fail. He is currently in dialysis as well. The sister states that this happened this morning and patient was due to go to dialysis and since it had been dislodged before she felt that it was important to go to dialysis and take care of the NG tube tonight. She also states that patient's doctor contacted her and felt like patient needs to have evaluation by hospice. According to the sister he is increasingly getting weaker he is unable to ambulate and they are requesting a hospice consult. According to the sister hospice nurse should be coming up to see them sometime tomorrow. She denies any known injuries states that she is only here to have the NG tube replaced. TRAVEL OUTSIDE OF THE [place] IN LAST 30 DAYS: No - HPI Patient complains to provider of: Feeding tube problem Onset: This morning Timing/Duration: Sudden Quality of pain: No pain Severity at maximum: Moderate Severity in ED: Moderate Pain Level: 2 Context: Lifting Associated symptoms: None Exacerbated by: Denies Relieved by: Denies Similar symptoms previously: Yes Recently seen / treated by doctor: Yes - Related Data Allergies/Adverse Reactions: No Known Allergies Allergy (Verified 08/24/20 10:28) Past Medical History - General Information source: Relative - Social History Smoking Status: Unknown if Ever Smoked Chew tobacco use (# tins/day): No Frequency of alcohol use: None Drug Abuse: None Lives with: Family Family History: Reviewed & Not Pertinent - Past Medical History Cardiac Medical History: Reports: Hx Hypercholesterolemia, Hx Hypertension Denies: Hx Coronary Artery Disease, Hx Heart Attack Pulmonary Medical History: Denies: Hx Asthma, Hx Bronchitis, Hx COPD, Hx Pneumonia Neurological Medical History: Denies: Hx Cerebrovascular Accident, Hx Seizures Endocrine Medical History: Reports: Hx Diabetes Mellitus Type 2 Renal/ Medical History: Reports: Hx End Stage Renal Disease. Denies: Hx Peritoneal Dialysis Musculoskeletal Medical History: Reports Hx Arthritis Past Surgical History: Reports: Hx Cholecystectomy, Hx Orthopedic Surgery - right shoulder - Immunizations Hx Diphtheria, Pertussis, Tetanus Vaccination: No Hx Pneumococcal Vaccination: 03/23/13 Review of Systems - Review of Systems Constitutional: No symptoms reported EENT: No symptoms reported Cardiovascular: No symptoms reported Respiratory: No symptoms reported Gastrointestinal: Other - NG tube dislodged Genitourinary: No symptoms reported Male Genitourinary: No symptoms reported Musculoskeletal: No symptoms reported Skin: No symptoms reported Hematologic/Lymphatic: No symptoms reported Neurological/Psychological: No symptoms reported -: Yes All other systems reviewed and negative Physical Exam - Vital signs Vitals: Temp Pulse BP Pulse Ox 100.1 F 100 115/53 L 91 L 09/03/20 17:48 09/03/20 17:48 09/03/20 17:48 09/03/20 17:48 - Notes Notes: PHYSICAL EXAMINATION: GENERAL: Patient is a frail-appearing slightly cachectic 70-year-old male though in no apparent distress HEAD: Bitemporal wasting is noted LUNGS: Auscultation patient's lungs show bilateral breath sounds decreased throughout no rhonchi rales or wheeze noted. HEART: Regular rate and rhythm without murmurs ABDOMEN: Examination patient's abdomen shows some mild tympany noted to percussion in a semi-Fowlers position. Bowel sounds are present but decreased throughout. Nontender to palpate. Musculoskeletal: Patient is nonambulatory. He is bedridden at this time. Course - Re-evaluation Re-evalutation: 09/03/20 20:32 We are currently attempting to replace the NG tube. After placement the sister will take him back to the house and where he will undergo evaluation for hospice care. Sister is requesting no additional interventions at this time but replacing the NG tube. Patient apparently agrees with this as well in our discussions. 09/03/20 20:43 Emergency room nurse replaced the NG tube confirmed its placement and we are happy with him being discharged into his sister's care. - Vital Signs Vital signs: Temp Pulse Resp BP Pulse Ox 100.1 F 100 115/53 L 91 L 09/03/20 17:48 09/03/20 17:48 09/03/20 17:48 09/03/20 17:48 Discharge - Discharge Clinical Impression: Encounter for nasogastric tube placement Condition: Stable Disposition: HOME, SELF-CARE Additional Instructions: As we discussed we had no special discharge order for this. You must monitor patient closely if he does not recall what and when before and after 1 week patient needs to recheck to make sure it is secured and safe. However if this happens again which that happens on occasion return to ER for reevaluation.
[2020-09-03 21:57] VITALS: BP 116/62
--- NOTE | 2020-09-04 08:17 | RADIOLOGY REPORT (SQ) ---
EXAM DESCRIPTION: KUB/ABDOMEN (SINGLE VIEW) IMAGES COMPLETED DATE/TIME: 09/03/2020 8:44 pm REASON FOR STUDY: NG PLACEMENT COMPARISON: None. NUMBER OF VIEWS: One view. TECHNIQUE: Supine radiographic image of the abdomen acquired. LIMITATIONS: None. FINDINGS: BOWEL GAS PATTERN: NG tubes in place. Tip overlies the left upper quadrant. Moderate sto ol throughout the colon. No obstruction. CALCIFICATIONS: No suspicious calcifications. SOFT TISSUES: No gross mass or suggestion of organomegaly. HARDWARE: None in the abdomen. BONES: No acute fracture. No worrisome bone lesions. OTHER: No other significant finding. IMPRESSION: NG tube overlies left upper quadrant most likely within stomach. TECHNICAL DOCUMENTATION: JOB ID: [id number] 2010 [employer]- All Rights Reserved Reading location - IP/workstation name: [email or web address]
--- OUTSIDE RECORDS SUMMARY | 2020-09-04 15:46 | XMS REPORT ---
:1950 Author Organization [facility] Address [facility] [place] [address] [place] [address] Care Team Providers Name Role Phone UMER FERREIRA Attending Clinician Unavailable Allergies, Adverse Reactions, Alerts This patient has no known allergies or adverse reactions. Medications Ordered Filled Start Stop Current Ordering Indication Dosage Frequency Signature Comments Components Medication Medication Date Date Medication? Clinician (SIG) Name Name amlodipine No 1 Q1D amlodipine 10 mg 10 mg tablet Take tablet 1 tablet Take 1 every day tablet by oral every day route for by oral 90 days. route for 90 days. atenolol 50 No 1 Q1D atenolol mg tablet 50 mg Take 1 tablet tablet Take 1 every day tablet by oral every day route for by oral 90 days. route for 90 days. benazepril No 1 Q1D benazepril 40 mg 40 mg tablet Take tablet 1 tablet Take 1 every day tablet by oral every day route for by oral 90 days. route for 90 days. clonidine No 2 BID clonidine HCl 0.1 mg HCl 0.1 mg tablet Take tablet 2 tablets Take 2 twice a day tablets by oral twice a route for day by 90 days. oral route for 90 days. clonidine No clonidine HCl 0.3 mg HCl 0.3 mg tablet tablet glipizide 5 No glipizide mg tablet 5 mg Take 1 tablet tablet Take 1 twice a day tablet by oral twice a route for day by 90 days. oral route for 90 days. lactulose No 15mL BID lactulose 10 gram/15 10 gram/15 mL oral mL oral solution solution Take 15 mL Take 15 mL twice a day twice a by oral day by route. oral route. methocarbam No methocarba ol 500 mg mol 500 mg tablet Take tablet 1 tablet 3 Take 1 times a day tablet 3 by oral times a route as day by needed. oral route as needed. simvastatin No 1 Q1D simvastati 40 mg n 40 mg tablet Take tablet 1 tablet Take 1 every day tablet by oral every day route for by oral 90 days. route for 90 days. sodium No sodium bicarbonate bicarbonat 650 mg e 650 mg tablet TAKE tablet 1 TABLET BY TAKE 1 MOUTH THREE TABLET BY TIMES DAILY MOUTH THREE TIMES DAILY sucralfate No sucralfate 1 gram 1 gram tablet Take tablet 1 tablet Take 1 twice a day tablet by oral twice a route for day by 30 days. oral route for 30 days. carvedilol No carvedilol 6.25 mg 6.25 mg tablet tablet docusate No docusate sodium 50 sodium 50 mg/5 mL mg/5 mL oral liquid oral 100mg every liquid other day 100mg per NG tube every other day per NG tube Lantus No 7unit(s Q1D Lantus Solostar ) Solostar U-100 U-100 Insulin 100 Insulin unit/mL (3 100 mL) unit/mL (3 subcutaneou mL) s pen subcutaneo Inject 7 us pen units every Inject 7 day by units subcutaneou every day s route by after meals subcutaneo for 30 us route days. after meals for 30 days. lorazepam No lorazepam 0.5 mg 0.5 mg tablet tablet lorazepam 1 No 1 Q1D lorazepam mg tablet 1 mg Take 1 tablet tablet Take 1 every day tablet by oral every day route at by oral bedtime for route at 30 days. bedtime for 30 days. metoclopram No 10mL Q6H metoclopra evelyn 5 mg/5 mide 5 mL oral mg/5 mL solution oral Take 10 mL solution every 6 Take 10 mL hours by every 6 oral route. hours by oral route. midodrine 5 No midodrine mg tablet 5 mg tablet Novolog No Novolog Flexpen Flexpen U-100 U-100 Insulin Insulin aspart 100 aspart 100 unit/mL (3 unit/mL (3 mL) mL) subcutaneou subcutaneo s INJECT us INJECT PER SLIDING PER SCALE. max SLIDING daily dose SCALE. max of 30 units daily dose a day. of 30 units a day. olanzapine No olanzapine 2.5 mg 2.5 mg tablet tablet oxycodone 5 No oxycodone mg/5 mL 5 mg/5 mL oral oral solution solution 5mL twice a 5mL twice day as need a day as for pain x need for 5 days pain x 5 days Problems Condition Condition Condition Status Onset Resolution Last Treatin g Comments Name Details Category Date Date Treatment Clinician Date Type 2 Type 2 Problem Active diabetes Diabetes 02-14 mellitus Mellitus 00:00: 00 Abnormal Abnormal Problem Active thyroid Thyroid 02-14 hormone Hormone 00:00: 00 Hyperlipide Hyperlipide Problem Active taj taj 4 00:00: 00 Anemia of Anemia of Problem Active chronic Chronic 02-14 renal Renal 00:00: failure Failure 00 Essential Essential Problem Active hypertensio Hypertensio 02-14 n n 00:00: 00 Hypertensiv Hypertensiv Problem Active e renal e Renal 02-12 disease Disease 00:00: 00 Chronic Chronic Problem Active kidney Kidney 02-12 disease Disease 00:00: stage 4 Stage 4 00 Disorder of Disorder of Problem Active kidney due Kidney Due 02-12 to diabetes to Diabetes 00:00: mellitus Mellitus 00 Constipatio Constipatio Problem Active n n 02-07 00:00: 00 Procedures Procedure Date / Time Performed Performing Clinician Leslie e REQUEST FOR IMAGE LIBRARY 2020-07-29 03:59:45 Martha Ferreira SERVICES [id number] 00:10:00 Bita Ferreira [id number] 00:10:00 Bita Ferreira [id number] 00:05:00 Bita Ferreira [id number] 00:05:00 Bita Ferreira [id number] [id number] 00:00:00 Bita Ferreira [id number] 3735-10-06 00:00:00 Bita Ferreira [id number] 00:00:00 Bita Ferreira [id number] 00:00:00 Bita Ferreira [id number] [id number] 00:00:00 Bita Ferreira [id number] 00:00:00 Bita Ferreira Colonoscopy 2012-10-23 00:00:00 SHOULDER SURGERY PROCEDURE Cholecystectomy Results Test Description Test Time Test Comments Text Results Atomic Results Result Comments REQUEST FOR IMAGE LIBRARY 2020-07-29 03:59:47 Please r efer to the appropriate SERVICES PACS to view images. X-ray chest reference only 2020-07-29 02:44:04 This or lavinia has been auto-finalized. Please see additional clinical documentation for result rep ort. X-ray chest reference only 2020-07-29 02:44:04 This or lavinia has been auto-finalized. Please see additional clinical documentation for result rep ort. X-ray abdomen reference only 2020-07-29 02:44:02 This order has been auto-finalized. Please see additional clinical documentation for result rep ort. X-ray abdomen reference only 2020-07-29 02:44:02 This order has been auto-finalized. Please see additional clinical documentation for result rep ort. X-ray chest reference only 2020-07-29 02:43:59 This or lavinia has been auto-finalized. Please see additional clinical documentation for result rep ort. X-ray chest reference only 2020-07-29 02:43:59 This or lavinia has been auto-finalized. Please see additional clinical documentation for result rep ort. CT abdomen reference only 2020-07-29 02:43:57 This ord er has been auto-finalized. Please see additional clinical documentation for result rep ort. CT abdomen reference only 2020-07-29 02:43:57 This ord er has been auto-finalized. Please see additional clinical documentation for result rep ort. Ultrasound abdomen reference 2020-07-29 02:43:55 This order has been only auto-finalized. Please see additional clinical documentation for result rep ort. Ultrasound abdomen reference 2020-07-29 02:43:55 This order has been only auto-finalized. Please see additional clinical documentation for result rep ort. 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 2020-09-02 16:45:10 diabetes mellitus Anemia of chronic renal failure Active 2020-09-02 16:45 :26 Hypoxemia Active 2020-09-02 16:45:30 Hypertensive renal disease Active 2020-09-02 16:46:40 End stage renal failure on dialysis Active 2020-09-02 1 6:48:18 Adult health examination Active 2020-07-23 10:40:32 Advance directive discussed with Active 2020-07-23 10:4 0:20 patient Depression screening Active 2020-07-23 10:40:38 At low risk for fall Active 2020-07-23 10:40:49 Encounters Start End Encounter Admission Attending Care Care Encounter Date/Time Date/Time Type Type Clinicians Facility Department ID 2020-08-25 2020-08-25 [facility] [id number] 00:00:00 00:00:00 Redinger, Immediate & Immediate & 0110 3 PA-C: [address] [place] [address], Ph. 2020-08-07 2020-08-07 Outpatient [facility] n [id number] 00:00:00 00:00:00 [facility] Medical Oncology Oncology [facility] 2020-08-06 2020-08-06 Outpatient [facility] n [id number] 00:00:00 00:00:00 [facility] Medical Oncology Oncology [facility] 2020-07-29 2020-07-29 [id number] 02:41:21 23:59:00 FEEROZ 2020-07-28 2020-07-28 Outpatient CHADFLORAGRAHAM JOSE ANTONIO [facility] [id number] 00:10:00 00:10:00 FEEROZ 2020-07-28 2020-07-28 [id number] 00:05:00 00:05:00 FEEROZEH 2020-07-28 2020-07-28 Outpatient CHADJORGETHELMA JOSE ANTONIO [facility] 232 [id number] 00:00:00 00:04:00 FEEROZ 2020-07-23 2020-07-23 [facility] [id number] 00:00:00 00:00:00 Redinger, Immediate & Immediate & 0100 1 PA-C: [address] [place] [address], Ph. 2018-05-09 2018-05-09 [id number] 00:00:00 00:00:00 [facility] 2018-05-06 2018-05-06 [id number] 00:00:00 00:00:00 [facility] Immunizations Ordered Immunization Filled Immunization Date Status Commen ts Refusal Reason Name Name influenza, 2019-08-28 Completed injectable, 13:00:40 quadrivalent Influenza, 2018-08-28 Completed injectable, MDCK, 08:51:21 preservative free, quadrivalent Plan of Treatment Planned Activity Planned Date Details Comments Future Scheduled Test [code = ] Future Scheduled Test [code = ] Future Scheduled Test [code = ] Future Scheduled Test [code = ] Future Scheduled Test [code = ] Future Scheduled Test [code = ] Future Scheduled Test [code = ] Future Scheduled Test [code = ] Future Appointment 2020-12-08 09:00:00 Nurse, Earl Hunter [facility] ; [place] [address] Future Appointment 2020-09-07 09:00:00 Grecia Pena, Earl cisneros [facility]; [place] [address] Social History Social Habit Start Date Stop Date Comments Exposure to SARS-CoV-2 (event) Smoking Status Start Date Stop Date Never Smoker Social History Observation Description Sex Male Vital Signs Vital Name Observation Time Observation Value Comments Height 2020-08-25 00:00:00 66 [in_i] BMI (Body Mass Index) 2020-08-25 00:00:00 16.9 kg/m2 Body Weight 2020-08-25 00:00:00 105 [lb_av] Height 2020-07-23 00:00:00 66 [in_i] BMI (Body Mass Index) 2020-07-23 00:00:00 21 kg/m2 Body Weight 2020-07-23 00:00:00 130 [lb_av] Hospital Discharge Instructions 1. Insomnia lorazepam 1 mg tablet 2. Chronic cholecystitis 3. Chronic progressive renal failure 4. Multiple complications due to type 2 diabetes mellitus 5. Anemia of chronic renal failure 6. Hypoxemia 7. Hypertensive renal disease 8. End stage renal failure on dialysis Discussion Note Schedule f/u. After performing a Medical Screening Examination, I estimate there is LOW risk for ACUTE CVA, ACUTE RENAL FAILURE, ACUTE CORONARY SYNDROME, OR THORACIC AORTIC DISSECTION, thus I consider the discharge disposition reasonable. The patient and I have discussed the diagnosis and risks, and we agree withdischarging home with close follow-up. We also discussed returning to the Office immediately if new or worsening symptoms occur. We have discussed the symptoms which are most concerning (e.g., bloody sputum, worsening pain or shortness of breath) that necessitate immediate return. Patient educational handouts: No information available.1. Adult health examination 2. Advance directive discussed with patient advance directives: careinstructions 3. Depression screening Patient Health Questionnaire-9 4. At low risk for fall fall risk screening Discussion Note ANNUAL WELLNESS EXAM COMPLETED. KEEP F/U SCHEDULED.
== END 2020-09-03 21:55 | disposition home or self-care (01) ==
LOC: ER 17:39
DX: Z46.59 Encounter for fitting and adjustment of other gastrointestinal appliance and device (principal); R53.1 Weakness; I12.0 Hypertensive chronic kidney disease with stage 5 chronic kidney disease or end stage renal disease; E11.22 Type 2 diabetes mellitus with diabetic chronic kidney disease; N18.6 End stage renal disease; Z99.2 Dependence on renal dialysis; Z98.890 Other specified postprocedural states; Z74.01 Bed confinement status
CPT/HCPCS: 74018; 99283

== ENCOUNTER 2020-09-04 12:03 | Emergency (ER) | payer MEDICARE ==
[2020-09-04 12:13] VITALS: BP 139/69
--- NOTE | 2020-09-04 12:22 | ER Document Report ---
ED Medical Screen (RME) - General Stated Complaint: PULLED OUT NG TUBE Time Seen by Provider: 09/04/20 12:10 Notes: Patient is a 70-year-old male who presents emergency department for pulling out his NG tube. Patient was here yesterday with the same complaint. NG tube was placed and he ended up pulling it out again today. Denies any abdominal pain. Exam: Soft, nontender abdomen. Healing incision site noted to right upper abdomen. I have greeted and performed a rapid initial assessment of this patient. A comprehensive ED assessment and evaluation of the patient, analysis of test results and completion of medical decision making process will be conducted by an additional ED providers. TRAVEL OUTSIDE OF THE [place] IN LAST 30 DAYS: No - Related Data Allergies/Adverse Reactions: No Known Allergies Allergy (Verified 08/24/20 10:28) Past Medical History - Past Medical History Cardiac Medical History: Reports: Hx Hypercholesterolemia, Hx Hypertension Denies: Hx Coronary Artery Disease, Hx Heart Attack Pulmonary Medical History: Denies: Hx Asthma, Hx Bronchitis, Hx COPD, Hx Pneumonia Neurological Medical History: Denies: Hx Cerebrovascular Accident, Hx Seizures Endocrine Medical History: Reports: Hx Diabetes Mellitus Type 2 Renal/ Medical History: Reports: Hx End Stage Renal Disease. Denies: Hx Peritoneal Dialysis Musculoskeltal Medical History: Reports Hx Arthritis Past Surgical History: Reports: Hx Cholecystectomy, Hx Orthopedic Surgery - right shoulder - Immunizations Hx Diphtheria, Pertussis, Tetanus Vaccination: No Physical Exam - Vital signs Vitals: Temp Pulse Resp BP Pulse Ox 98.3 F 86 17 139/69 H 97 09/04/20 12:12 09/04/20 12:12 09/04/20 12:12 09/04/20 12:12 09/04/20 12:12 Course - Vital Signs Vital signs: Temp Pulse Resp BP Pulse Ox 98.3 F 86 17 139/69 H 97 09/04/20 12:12 09/04/20 12:12 09/04/20 12:12 09/04/20 12:12 09/04/20 12:12
--- NOTE | 2020-09-04 14:05 | ER Document Report ---
Entered by DEMETRIO BUNCH SCRIBE 09/04/20 1253 Acting as scribe for:RENEE MARSH MD ED General - General Chief Complaint: Problem with Feeding Tube Stated Complaint: PULLED OUT NG TUBE Time Seen by Provider: 09/04/20 12:10 Mode of Arrival: Medic Information source: Patient Notes: This 70 year old male patient with a history of ESRD on HD (T,Th,Sat last dialyzed yesterday) presents to the ED today via EMS for pulling out his NG tube. Patient was actually seen here last night had a new NG tube placed. Patient states that he does not want the tube because he is able to eat without it. Denies any abdominal pain. TRAVEL OUTSIDE OF THE [place] IN LAST 30 DAYS: No - Related Data Allergies/Adverse Reactions: No Known Allergies Allergy (Verified 09/04/20 12:54) Past Medical History - General Information source: Patient, Relative, [facility] Records - Social History Smoking Status: Smoker,Current Status Unk Chew tobacco use (# tins/day): No Smoking Education Provided: No Frequency of alcohol use: None Drug Abuse: None Family History: Reviewed & Not Pertinent - Past Medical History Cardiac Medical History: Reports: Hx Hypercholesterolemia, Hx Hypertension Denies: Hx Coronary Artery Disease, Hx Heart Attack Pulmonary Medical History: Denies: Hx Asthma, Hx Bronchitis, Hx COPD, Hx Pneumonia Neurological Medical History: Denies: Hx Cerebrovascular Accident, Hx Seizures Endocrine Medical History: Reports: Hx Diabetes Mellitus Type 2 Renal/ Medical History: Reports: Hx End Stage Renal Disease. Denies: Hx Peritoneal Dialysis Musculoskeletal Medical History: Reports Hx Arthritis Past Surgical History: Reports: Hx Cholecystectomy, Hx Orthopedic Surgery - right shoulder - Immunizations Hx Diphtheria, Pertussis, Tetanus Vaccination: No Hx Pneumococcal Vaccination: 03/23/13 Review of Systems - Review of Systems Constitutional: See HPI EENT: No symptoms reported Cardiovascular: No symptoms reported Respiratory: No symptoms reported Gastrointestinal: See HPI Genitourinary: No symptoms reported Male Genitourinary: No symptoms reported Musculoskeletal: No symptoms reported Skin: No symptoms reported Hematologic/Lymphatic: No symptoms reported Neurological/Psychological: No symptoms reported -: Yes All other systems reviewed and negative Physical Exam - Vital signs Vitals: Temp Pulse Resp BP Pulse Ox 98.3 F 86 17 139/69 H 97 09/04/20 12:12 09/04/20 12:12 09/04/20 12:12 09/04/20 12:12 09/04/20 12:12 Course - Re-evaluation Re-evalutation: 09/04/20 14:00 Patient presents to the emergency department because this is the eighth time that he has pulled out his NG tube. And he returns to the emergency department because he has family members who want him to continue his nasogastric feedings. Patient also is a hemodialysis patient on Monday and Monday. Patient is in his coherent mind and understands the risk of not using his NG tube for feeding purposes and fluid management. Patient states that the NG tube is not something he wants replaced and states that he is able to eat around the tube when it was in place so therefore he prefers not to have it at all. Discussed this at length with patient regarding the use of the NG tube and he is adamant and consistent that he does not want the NG tube replaced. Patient understands the consequences that he may not be able to have the sustenance nutrition fluids that he needs to maintain his life and he understands those risks. Family member at bedside also understood and patient is going to be discharged home without replacement of NG tube today I did explain to patient that he has a right to change his opinion if he wants and and if he does certainly we are open to see him again. - Vital Signs Vital signs: Temp Pulse Resp BP Pulse Ox 98.3 F 86 17 139/69 H 97 09/04/20 12:12 09/04/20 12:12 09/04/20 12:12 09/04/20 12:12 09/04/20 12:12 09/04/20 14:05 Vital signs stable Discharge - Discharge Clinical Impression: Encounter for nasogastric (NG) tube placement Condition: Stable Disposition: HOME, SELF-CARE Additional Instructions: Your nasogastric tube was removed by you and you have come to the emergency d epartment at the wishes of family members to have an NG tube replaced. You have made it clear to us that you do not want the NG tube replaced and you prefer to chew and swallow on your own without the use of a tube. Your report does that you have demonstrated that you can swallow since the tube has been in place you been able to eat putting around the tube itself. Of course the tube placement w as necessary to avoid aspiration which you have done. However you do still have that risk of aspiration perhaps without the NG tube presents. We are honoring your decision today to not replace the NG tube. However if you change your opinion please do not hesitate to come back to the emergency department. I personally performed the services described in the documentation, reviewed and edited the documentation which was dictated to the scribe in my presence, and it accurately records my words and actions.
== END 2020-09-04 17:30 | disposition home or self-care (01) ==
LOC: ER 12:03
DX: Z46.59 Encounter for fitting and adjustment of other gastrointestinal appliance and device (principal); I12.0 Hypertensive chronic kidney disease with stage 5 chronic kidney disease or end stage renal disease; E11.22 Type 2 diabetes mellitus with diabetic chronic kidney disease; N18.6 End stage renal disease; Z99.2 Dependence on renal dialysis
CPT/HCPCS: 99283

== ENCOUNTER 2020-09-14 12:05 | Inpatient (IN) | payer MEDICARE ==
--- NOTE | 2020-09-14 13:27 | ER Document Report ---
ED General - General Chief Complaint: Shortness Of Breath Stated Complaint: WEAKNESS Time Seen by Provider: 09/14/20 13:12 TRAVEL OUTSIDE OF THE [place] IN LAST 30 DAYS: No - HPI Notes: Chief complaint: Needs dialysis History of present illness: This is a 70-year-old male well-known to me from previous ED encounters who has end-stage renal disease and currently on DNR/DNI status who was sent here from dialysis center where he was due to be dialyzed today. He was apparently on a transport ambulance going into the center and reportedly had an O2 saturation of 83%. Dialysis staff felt that he looked "lethargic" and instructed EMS to bring him here. On arrival here this man has no complaints whatsoever. He wants to go home. He specifically denies feeling short of breath or experiencing pain anywhere. He has no fever. EMS did a rapid Covid swab for him and this was normal. They documented O2 saturation 95% on room air. - Related Data Allergies/Adverse Reactions: No Known Allergies Allergy (Verified 09/04/20 12:54) Past Medical History - General Information source: Patient, Emergency Med Personnel, [facility] Records - Social History Smoking Status: Never Smoker Frequency of alcohol use: None Drug Abuse: None Family History: Reviewed & Not Pertinent Patient has homicidal ideation: No - Past Medical History Cardiac Medical History: Reports: Hx Hypercholesterolemia, Hx Hypertension Denies: Hx Coronary Artery Disease, Hx Heart Attack Pulmonary Medical History: Denies: Hx Asthma, Hx Bronchitis, Hx COPD, Hx Pneumonia Neurological Medical History: Denies: Hx Cerebrovascular Accident, Hx Seizures Endocrine Medical History: Reports: Hx Diabetes Mellitus Type 2 Renal/ Medical History: Reports: Hx End Stage Renal Disease. Denies: Hx Peritoneal Dialysis Musculoskeletal Medical History: Reports Hx Arthritis Past Surgical History: Reports: Hx Cholecystectomy, Hx Orthopedic Surgery - right shoulder - Immunizations Hx Diphtheria, Pertussis, Tetanus Vaccination: No Hx Pneumococcal Vaccination: 03/23/13 Review of Systems - Review of Systems Notes: Constitutional: Negative for fever. HENT: Negative for sore throat. Eyes: Negative for visual changes. Cardiovascular: Negative for chest pain. Respiratory: Negative for shortness of breath. Gastrointestinal: Negative for abdominal pain, vomiting or diarrhea. Genitourinary: Negative for dysuria. Musculoskeletal: Negative for back pain. Skin: Negative for rash. Neurological: Negative for headaches, weakness or numbness. 10 point ROS negative except as marked above and in HPI. Physical Exam - Vital signs Vitals: Temp Resp BP Pulse Ox 98.7 F 21 H 142/79 H 95 09/14/20 12:15 09/14/20 12:15 09/14/20 12:15 09/14/20 12:15 - Notes Notes: GENERAL: Somewhat chronically ill-appearing elderly male presently in no acute distress. SKIN: Pale. Good turgor no rashes. HEAD: Normocephalic atraumatic. EYES: PERRLA. EOMI. Conjunctivae pale and sclerae clear. EARS: CANALS AND TMS CLEAR. NOSE: CLEAR. MOUTH: Moist mucosa. Good dentition. No stridor or edema. No drooling. NECK: Supple. No masses or thyromegaly. No adenopathy. Carotids 2+ without bruits. No JVD. BACK: Symmetrical without tenderness. CHEST: Respirations unlabored. Breath sounds clear and symmetrical. HEART: Regular rhythm. No murmur gallop or rub. ABDOMEN: Soft nontender without masses, organomegaly or rebound. Bowel sounds normally active. No bruits. GENITALIA: Deferred. EXTREMITIES: No edema. No calf tenderness. Cap refill less than 1.5 seconds. Dorsalis pedis and posterior tibial pulses 3+ and symmetrical. NEUROLOGICAL: GCS 14. Is appropriately oriented to place and person but not to date or day. This is his usual baseline. Alert and oriented x3. Check fluent speech. Cranial nerves II through XII intact. Sensorimotor and cerebellar normal. Normal tone. PSYCHIATRIC: Appropriate affect. Course - Vital Signs Vital signs: Temp Pulse Resp BP Pulse Ox 98.7 F 21 H 142/79 H 95 09/14/20 12:15 09/14/20 12:15 09/14/20 12:15 09/14/20 12:15 - Laboratory Result Diagrams: 09/14/20 13:24 09/14/20 13:24 Laboratory results interpreted by me: 09/14/20 09/14/20 13:24 13:24 RBC 2.32 L Hgb 6.8 L Hct 22.5 L MCHC 30.3 L RDW 17.7 H Eos % (Auto) 8.7 H Absolute Eos (auto) 0.9 H Potassium 6.0 H* BUN 50 H Creatinine 4.16 H Est GFR ( Amer) 17 L Est GFR (MDRD) Non-Af 14 L Glucose 212 H Total Protein 5.8 L Albumin 2.7 L Discharge - Discharge Clinical Impression: Hyperkalemia, CKD (chronic kidney disease), stage V Anemia in chronic kidney disease (CKD) Qualifiers: Chronic kidney disease stage: on chronic dialysis Qualified Code(s): N18.6 - End stage renal disease; D63.1 - Anemia in chronic kidney disease; Z99.2 - Dependence on renal dialysis Condition: Serious Disposition: ADMITTED INPATIENT Admitting Provider: Mason (Hospitalist) Unit Admitted: [facility]
--- NOTE | 2020-09-14 13:43 | RADIOLOGY REPORT (SQ) ---
EXAM DESCRIPTION: CHEST SINGLE VIEW IMAGES COMPLETED DATE/TIME: 09/14/2020 1:35 pm REASON FOR STUDY: ESRD COMPARISON: 08/20/2020 EXAM PARAMETERS: NUMBER OF VIEWS: One view. TECHNIQUE: Single frontal radiographic view of the chest acquired. RADIATION DOSE: NA LIMITATIONS: None. FINDINGS: LUNGS AND PLEURA: No opacities, masses or pneumothorax. No pleural effusion. MEDIASTINUM AND HILAR STRUCTURES: No masses. Contour normal. HEART AND VASCULAR STRUCTURES: Heart normal in size. Normal vasculature. BONES: No acute findings. HARDWARE: Dialysis catheter remains in place. OTHER: No other significant finding. IMPRESSION: NO ACUTE RADIOGRAPHIC FINDING IN THE CHEST. TECHNICAL DOCUMENTATION: JOB ID: [id number] 2010 [email or web address]- All Rights Reserved Reading location - IP/workstation name: [email or web address]
[2020-09-14 13:46] LABS: ABSOLUTE EOSINOPHILS # (AUTO) 0.9 10^3/uL (0.0-0.6); ABSOLUTE LYMPHOCYTES (AUTO) 2.9 10^3/uL (0.5-4.7); ABSOLUTE MONOCYTES (AUTO) 0.7 10^3/uL (0.1-1.4); ABSOLUTE NEUT (AUTO) 5.7 10^3/uL (1.7-8.2); BASOPHILS % (AUTO) 0.5 % (0-2); EOSINOPHILS % (AUTO) 8.7 % (0-6); HEMATOCRIT 22.5 % (37.9-51.0); LYMPHOCYTES % (AUTO) 28.2 % (13-45); MEAN CORPUSCULAR HEMOGLOBIN 29.3 pg (27.0-33.4); MEAN CORPUSCULAR HGB CONC 30.3 g/dL (32.0-36.0); MONOCYTES % (AUTO) 6.5 % (3-13); PLATELET COUNT 280 10^3/uL (150-450); RED BLOOD COUNT 2.32 10^6/uL (4.35-5.55); RED CELL DISTRIBUTION WIDTH 17.7 % (11.5-14.0); SEGMENTED NEUTROPHILS % (AUTO) 56.1 % (42-78); TOTAL CELLS COUNTED % (AUTO) 100 %; WHITE BLOOD COUNT 10.2 10^3/uL (4.0-10.5)
[2020-09-14 13:52] LABS: HEMOGLOBIN 6.8 g/dL (13.5-17.0)
[2020-09-14 13:53] LABS: MEAN CORPUSCULAR VOLUME 97 fl (80-97)
[2020-09-14] MEDS ORDERED: NORMAL SALINE 250 ML IV PRN ×2 (13:57)
[2020-09-14 13:59] LABS: ALBUMIN 2.7 g/dL (3.5-5.0); ALKALINE PHOSPHATASE 118 U/L (38-126); ANION GAP 8 (5-19); ASPARTATE AMINO TRANSFERASE 22 U/L (17-59); BILIRUBIN,DIRECT 0.3 mg/dL (0.0-0.4); BILIRUBIN,TOTAL 0.4 mg/dL (0.2-1.3); BLOOD UREA NITROGEN 50 mg/dL (7-20); CALCIUM 8.8 mg/dL (8.4-10.2); CARBON DIOXIDE 29 mmol/L (22-30); CHLORIDE 101 mmol/L (98-107); GLUCOSE 212 mg/dL (75-110); TOTAL PROTEIN 5.8 g/dL (6.3-8.2)
[2020-09-14] MEDS ORDERED: HEPARIN SOD (PORCINE) 1,000 UNIT/ML 10 ML VIAL IV PRN (14:07)
[2020-09-14] MEDS ORDERED: NORMAL SALINE 1000 ML 1,000 ML IV PRN (14:07)
[2020-09-14] MEDS ORDERED: MAGNESIUM HYDROXIDE SUSP 30 ML UDCUP PO PRN (14:12)
[2020-09-14] MEDS ORDERED: ACETAMINOPHEN 325 MG TABLET PO PRN (14:12)
[2020-09-14] MEDS ORDERED: IPRATROPIUM/ALBUTEROL 0.5-2.5 MG/3 ML AMPUL NEB PRN (14:12)
[2020-09-14] MEDS ORDERED: ONDANSETRON HCL INJ/PF 4 MG/2 ML SDV IV PRN (14:12)
[2020-09-14] MEDS ORDERED: GLUCAGON,HUMAN RECOMB 1 MG INJ IM PRN (14:19)
[2020-09-14] MEDS ORDERED: DEXTROSE 50%-WATER 25 GM/50 ML DISP.SYRIN IV PRN ×2 (14:19)
[2020-09-14] MEDS ORDERED: DEXTROSE 40% GEL 15 GM TUBE PO PRN ×2 (14:19)
[2020-09-14] MEDS ORDERED: EPOETIN ALFA-EPBX 2,000 UNIT, EPOETIN ALFA-EPBX 3,000 UNIT, EPOETIN ALFA-EPBX 20,000 UN... IV PRN ×4 (15:00)
--- NOTE | 2020-09-14 15:47 | PDOC H&P ---
History of Present Illness History of Present Illness: TINA YUAN is a 70 year old male past medical history of end-stage renal disease on hemodialysis, anemia of CKD, hypertension, type 2 diabetes, recently hospitalized at [facility] for for chronic cholecystitis status post complicated cholecystectomy, patient was also having problem dysphagia, failed swallow study and was sent home with his sister with a PEG tube. Patient was sent to ED from dialysis center for hypoxia, lethargy and weakness, and anemia. In ED patient was noted to have hemoglobin of 6.8, calcium of 6.0. Dr. Hill from nephrology by ED physician and she agreed to be admitted for hemodialysis and PRBC transfusion. Saw patient while receiving hemodialysis, in no apparent distress, when asked why he is in the hospital stating he does not know, he denies any chest pain, lightheadedness, nausea, vomiting, diarrhea, constipation, fever, chills, shortness of breath, nosebleed, hematemesis, hematuria, hemoptysis, hematochezia or melena. Patient is stating that he is p.o. tolerant and has PEG tube from previous admission has been removed. Patient is DNR/DNI, living with his sister, anxious to be discharged home as soon as possible. Past Medical History Cardiac Medical History: Reports: Hyperlipidema, Hypertension Denies: Coronary Artery Disease, Myocardial Infarction Pulmonary Medical History: Denies: Asthma, Bronchitis, Chronic Obstructive Pulmonary Disease (COPD), Pneumonia Neurological Medical History: Denies: Seizures Endocrine Medical History: Reports: Diabetes Mellitus Type 2 Renal/ Medical History: Reports: End Stage Renal Disease Musculoskeltal Medical History: Reports: Arthritis Hematology: Denies: Anemia Past Surgical History Past Surgical History: Reports: Cholecystectomy, Orthopedic Surgery - right shoulder Social History Smoking Status: Never Smoker Frequency of Alcohol Use: None Family History Family History: Reviewed & Not Pertinent Parental Family History Reviewed: Yes Children Family History Reviewed: Yes Sibling(s) Family History Reviewed.: Yes Medication/Allergy Home Medications: Carvedilol [Coreg 6.25 mg Tablet] 12.5 mg NG Q12 #60 tablet 08/19/20 Docusate Sodium [Colace Udc 100 mg/10 ml Oral Soln] 100 mg NG Q2D@1000 #30 udc 08/19/20 Insulin Glargine,Hum.rec.anlog [Lantus Insulin 100 Unit/1 ml 10 ml] 7 unit SUBCUT QAM #3 vial 08/19/20 Insulin Lispro [Humalog Insulin (Lispro) 100 unit/mL] 0 - 12 unit SUBCUT Q6 #3 vial 08/19/20 Melatonin [Melatonin 5 mg Tablet] 10 mg NG QHS #30 tablet 08/19/20 Metoclopramide HCl [Reglan Oral Soln 10 mg/10 ml Udcup] 10 mg NG Q6A #10 udc 08/19/20 Midodrine HCl [Proamatine 5 mg Tablet] 5 mg NG .DIALYSIS PRN #12 tablet 08/19/20 Olanzapine [Zyprexa 2.5 mg Tablet] 2.5 mg NG DAILY #30 tablet 08/19/20 Lorazepam [Ativan 0.5 mg Tablet] 0.5 mg PO BID 15 Days #30 tab 08/24/20 Allergies/Adverse Reactions: No Known Allergies Allergy (Verified 09/04/20 12:54) Review of Systems Review of Systems: as per hpi Physical Exam Vital Signs: Temp Pulse Resp BP Pulse Ox 98.7 F 21 H 142/79 H 95 09/14/20 12:15 09/14/20 12:15 09/14/20 12:15 09/14/20 12:15 Intake & Output 09/13/20 09/14/20 09/15/20 06:59 06:59 06:59 Weight 65.4 kg General appearance: PRESENT: no acute distress, well-developed, well-nourished Head exam: PRESENT: atraumatic, normocephalic Respiratory exam: PRESENT: clear to auscultation deven. ABSENT: rales, rhonchi, wheezes Cardiovascular exam: PRESENT: RRR. ABSENT: diastolic murmur, rubs, systolic murmur GI/Abdominal exam: PRESENT: normal bowel sounds, soft, other - Abdominal scar from PEG tube placement, currently removed, no sign of infection or tenderness.. ABSENT: distended, guarding, mass, organolmegaly, rebound, tenderness Extremities exam: PRESENT: full ROM. ABSENT: calf tenderness, clubbing, pedal edema Neurological exam: PRESENT: alert, awake, oriented to person, oriented to place, CN II-XII grossly intact. ABSENT: motor sensory deficit Results Laboratory Results: 09/14/20 13:24 09/14/20 13:24 09/14/20 09/14/20 09/14/20 13:24 13:24 14:05 WBC 10.2 RBC 2.32 L Hgb 6.8 L Hct 22.5 L MCV 97 D MCH 29.3 MCHC 30.3 L RDW 17.7 H Plt Count 280 Seg Neutrophils % 56.1 Sodium 137.9 Potassium 6.0 H* Chloride 101 Carbon Dioxide 29 Anion Gap 8 BUN 50 H Creatinine 4.16 H Est GFR ( Amer) 17 L Glucose 212 H Calcium 8.8 Total Bilirubin 0.4 AST 22 Alkaline Phosphatase 118 Total Protein 5.8 L Albumin 2.7 L Blood Type A POSITIVE Antibody Screen NEGATIVE Impressions: Chest X-Ray 09/14/20 13:14 IMPRESSION: NO ACUTE RADIOGRAPHIC FINDING IN THE CHEST. Assessment and Plan - Diagnosis (1) Anemia in chronic kidney disease (CKD) Qualifiers: Chronic kidney disease stage: on chronic dialysis Qualified Code(s): N18.6 - End stage renal disease; D63.1 - Anemia in chronic kidney disease; Z99.2 - Dependence on renal dialysis Is this a current diagnosis for this admission?: Yes Plan: Anemia CKD. Baseline hemoglobin 7-8. With sudden drop at 6.8 with no apparent reason. Denies any nosebleed, hematemesis, hemoptysis, hematochezia, melena or hematuria. Scheduled to receive 2 PRBC on this admission. 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 Monitor H&H. Supportive transfusions. (2) Essential hypertension Is this a current diagnosis for this admission?: Yes Plan: Euvolemic. Normotensive. Resume home meds. Adjust meds as needed. Outpatient PCP follow-up. (3) Hyperkalemia Is this a current diagnosis for this admission?: Yes Plan: No acute EKG changes. Most likely due to end-stage renal disease. Currently receiving hemodialysis. Potassium level post dialysis. Admit to telemetry, monitor electrolytes and replace as needed, hyperkalemia protocol. (4) Type 2 diabetes mellitus Qualifiers: Is this a current diagnosis for this admission?: Yes Plan: Probably overtreated based on hemoglobin A1c 5.3% from previous admission. Given age and comorbidity hemoglobin A1c goal should be 7 to 8%. We will recheck hemoglobin A1c. Diabetic diet, sliding scale insulin, basal insulin, Accu-Chek, hypoglycemia protocol. Resume home meds upon discharge. Outpatient PCP follow-up. - Time Time Spent with patient: 35 or more minutes Medications reviewed and adjusted accordingly: Yes Anticipated Discharge Disposition: Home with Home Health Anticipated Discharge Timeframe: within 24 hours
--- NOTE | 2020-09-14 17:37 | EKG REPORT ---
SEVERITY:- ABNORMAL ECG - SINUS RHYTHM LEFT ATRIAL ABNORMALITY : Confirmed by: Dk Zaragoza MD 14-Sep-2020 17:36:48
--- NOTE | 2020-09-14 18:14 | PDOC CONSULTATION ---
Consultation Consult Date: 09/14/20 Provider Consulted: JOSE HALL Consult reason:: ESRD, Hyperkalemia, Anemia History of Present Illness Admission Date/PCP: 09/14/20 15:40 History of Present Illness: TINA YUAN is a 70 year old gentleman known to me with history of ESRD secondary to diabetic nephropathy who was recently started on maintenance hemodialysis on MWF, diabetes mellitus type 2, hypertension, anemia, recent hospitalization for acute cholecystitis status post open cholecystectomy and subsequent dysphagia who went home with an NG tube. The patient was transported by [facility] to [facility] and was found to have oxygen saturation of 86% although at [facility] it was 94% and the patient was reportedly lethargic. The patient has pulled his NG tube approximately 3 weeks ago per patient and has been eating orally at home. Due to the concern of possible aspiration the patient was then sent to the emergency room. In the emergency room the patient was found to have good oxygen saturation of 95 to 98% at room air. Chest x-ray was clear. Patient is awake and communicating. Initial evaluation though showed a hemoglobin of 6.8 and a potassium of 6.0. Patient was subsequently admitted and I was called to provide dialysis. I am seeing the patient during dialysis this afternoon. He is awake and answering questions coherently. He is tolerating dialysis without much issues. He is receiving blood transfusion and is currently on his second unit. He alex es any shortness of breath no chest pains. He has mild cough productive of some phlegm. He denies any fever. He denies any bright red blood in the stool or black stools. He states that he is eating at home without any problems by mouth since he pulled his NG tube 3 weeks ago. Past Medical History Cardiac Medical History: Reports: Hyperlipidemia, Hypertension-primary Endocrine Medical History: Reports: Diabetes Mellitus Type 2 Complications of Diabetes: Reports: Nephropathy Renal/ Medical History: Reports: End Stage Renal Disease, Metabolic Acidosis GI Medical History: Reports: Other - Dysphagia and previously failed swallow eval Musculoskeltal Medical History: Reports: Arthritis Hematology Medical History: Reports Anemia of Chronic Kidney Disease Past Surgical History Past Surgical History: Reports: Cholecystectomy, Orthopedic Surgery - right shoulder Social History Information Source: [facility], [facility] Lives with: Family - Lives with sister Smoking Status: Never Smoker Electronic Cigarette use?: No Frequency of Alcohol Use: None Hx Recreational Drug Use: No Hx Prescription Drug Abuse: No Family History Family History: Reviewed & Not Pertinent Parental Family History Reviewed: Yes Children Family History Reviewed: Yes Sibling(s) Family History Reviewed.: Yes Medication/Allergy Home Medications: Carvedilol [Coreg 6.25 mg Tablet] 12.5 mg NG Q12 #60 tablet 08/19/20 Docusate Sodium [Colace Udc 100 mg/10 ml Oral Soln] 100 mg NG Q2D@1000 #30 udc 08/19/20 Melatonin [Melatonin 5 mg Tablet] 10 mg NG QHS #30 tablet 08/19/20 Midodrine HCl [Proamatine 5 mg Tablet] 5 mg NG .DIALYSIS PRN #12 tablet 08/19/20 Clonidine HCl [Catapres 0.1 mg Tablet] 0.2 mg PO Q12 09/14/20 Glipizide [Glipizide Xl] 5 mg PO Q12 09/14/20 Insulin Aspart [Novolog Flexpen] 0 unit SUBCUT .PER SLIDING 09/14/20 Insulin Glargine,Hum.rec.anlog [Lantus Insulin 100 Unit/1 ml 10 ml] 7 unit SUBCUT AC 09/14/20 Lorazepam [Ativan 0.5 mg Tablet] 0.5 mg PO BIDP PRN 09/14/20 Metoclopramide HCl [Reglan Oral Soln 10 mg/10 ml Udcup] 10 mg NG Q6 09/14/20 Oxycodone HCl 5 ml PO BIDP PRN 09/14/20 Sevelamer Carbonate [Renvela] 0.8 gm PO TID 09/14/20 Simvastatin [Zocor 40 mg Tablet] 40 mg PO QHS 09/14/20 Allergies/Adverse Reactions: No Known Allergies Allergy (Verified 09/04/20 12:54) Review of Systems All systems: reviewed and no additional remarkable complaints except as stated Review of Systems: Constitutional: ABSENT: chills, fatigue, fever(s), headache(s), weight gain, weight loss Eyes: ABSENT: visual disturbances Ears: ABSENT: hearing changes Cardiovascular: ABSENT: chest pain, dyspnea on exertion, edema, orthropnea, palpitations Respiratory: ABSENT: dyspnea, hemoptysis; reports some cough productive of some phlegm Gastrointestinal: ABSENT: abdominal pain, constipation, diarrhea, hematemesis, hematochezia, nausea, vomiting Genitourinary: ABSENT: dysuria, hematuria Musculoskeletal: ABSENT: joint swelling Integumentary: ABSENT: rash, wounds Neurological: ABSENT: abnormal gait, abnormal speech, confusion, dizziness, focal weakness, numbness, syncope Psychiatric: ABSENT: anxiety, depression Endocrine: ABSENT: cold intolerance, heat intolerance, polydipsia, polyuria Hematologic/Lymphatic: ABSENT: easy bleeding, easy bruising, lymphadenopathy Physical Exam Vital Signs: Temp Pulse Resp BP Pulse Ox 98.7 F 21 H 142/79 H 95 09/14/20 12:15 09/14/20 12:15 09/14/20 12:15 09/14/20 12:15 Intake & Output 09/13/20 09/14/20 09/15/20 06:59 06:59 06:59 Weight 65.4 kg Vitals during dialysis: Blood pressure 141/80, heart rate of 70, blood flow rate of 350 mL/min and dialysate flow rate of 800 mL/min. Exam: General appearance: No acute distress, cooperative, well-developed, well- nourished Head exam: PRESENT: atraumatic, normocephalic Eye exam: PRESENT: Conjunctiva pale, EOMI, PERRLA. ABSENT: conjunctival injection, scleral icterus Mouth exam: PRESENT: moist, neck supple, tongue midline Neck exam: PRESENT: full ROM. ABSENT: carotid bruit, JVD, lymphadenopathy, thyromegaly Respiratory exam: PRESENT: clear to auscultation bilaterally. ABSENT: rales, rhonchi, stridor, wheezes Cardiovascular exam: PRESENT: RRR, +S1, +S2. ABSENT: systolic murmur Pulses: PRESENT: normal radial pulses, normal dorsalis pedis pulses GI/Abdominal exam: PRESENT: normal bowel sounds, soft. ABSENT: guarding, mass, tenderness Rectal exam: Deferred Extremities exam: PRESENT: full ROM. ABSENT: calf tenderness, pedal edema Musculoskeletal: PRESENT: full ROM. ABSENT: deformity Neurological exam: PRESENT: alert, Awake, Oriented to person, Oriented to place, Oriented to time, reflexes normal, CN II-XII grossly intact. ABSENT: motor sensory deficit Psychiatric exam: PRESENT: appropriate affect, normal mood. ABSENT: homicidal ideation, suicidal ideation Skin exam: PRESENT: intact, dry, warm. ABSENT: rash Results Laboratory Results: 09/14/20 13:24 09/14/20 13:24 09/14/20 09/14/20 09/14/20 13:24 13:24 14:05 WBC 10.2 RBC 2.32 L Hgb 6.8 L Hct 22.5 L MCV 97 D MCH 29.3 MCHC 30.3 L RDW 17.7 H Plt Count 280 Seg Neutrophils % 56.1 Sodium 137.9 Potassium 6.0 H* Chloride 101 Carbon Dioxide 29 Anion Gap 8 BUN 50 H Creatinine 4.16 H Est GFR ( Amer) 17 L Glucose 212 H Calcium 8.8 Total Bilirubin 0.4 AST 22 Alkaline Phosphatase 118 Total Protein 5.8 L Albumin 2.7 L Blood Type A POSITIVE Antibody Screen NEGATIVE Impressions: Chest X-Ray 09/14/20 13:14 IMPRESSION: NO ACUTE RADIOGRAPHIC FINDING IN THE CHEST. Assessment & Plan - Diagnosis (1) ESRD (end stage renal disease) on dialysis Is this a current diagnosis for this admission?: Yes Plan: We will do dialysis today for 3 hours, using the patient's PermCath, with 2 potassium bath, blood flow rate of 350 mL per minute, dialysate flow rate of 800 mL per minute, ultrafiltration [2.5 L as tolerated], no heparin and Retacrit of 25,000 units during dialysis intravenously. Patient will be monitored especially with blood transfusion during dialysis. (2) Hyperkalemia Is this a current diagnosis for this admission?: Yes Plan: Stat dialysis today. (3) Anemia in chronic kidney disease (CKD) Qualifiers: Chronic kidney disease stage: on chronic dialysis Qualified Code(s): N18.6 - End stage renal disease; D63.1 - Anemia in chronic kidney disease; Z99.2 - Dependence on renal dialysis Is this a current diagnosis for this admission?: Yes Plan: 2 units of packed RBC transfusion during dialysis. Retacrit also given during dialysis. Check occult blood in the stool and iron panel in a.m. (4) Dysphagia Qualifiers: Dysphagia type: oropharyngeal phase Qualified Code(s): R13.12 - Dysphagia, oropharyngeal phase Is this a current diagnosis for this admission?: Yes Plan: Before feeding the patient by mouth, I told the nurse to do bedside swallow evaluation. (5) Essential hypertension Is this a current diagnosis for this admission?: Yes (6) Hypoalbuminemia Is this a current diagnosis for this admission?: Yes Plan: If patient passes swallow eval, start Nepro supplement. (7) Type 2 diabetes mellitus Qualifiers: Is this a current diagnosis for this admission?: Yes - Notes Notes: Thank you very much for this consultation.
[2020-09-14] MEDS: INSULIN LISPRO 100 UNIT/ML 3 ML VIAL SUBCUT SCH ×2 (20:28→21:56)
[2020-09-14] MEDS: HEPARIN SOD (PORCINE) 5,000 UNIT/ML 1 ML VIAL SUBCUT SCH (21:57)
[2020-09-14] MEDS ORDERED: FAMOTIDINE 20 MG TABLET PO SCH (22:00)
[2020-09-15] MEDS: HEPARIN SOD (PORCINE) 5,000 UNIT/ML 1 ML VIAL SUBCUT SCH (05:35)
[2020-09-15 06:46] LABS: ABSOLUTE RETICS # 0.068 10^6/uL (0.028-0.122); HEMATOCRIT 29.8 % (37.9-51.0); MEAN CORPUSCULAR HEMOGLOBIN 30.3 pg (27.0-33.4); MEAN CORPUSCULAR HGB CONC 33.7 g/dL (32.0-36.0); PLATELET COUNT 225 10^3/uL (150-450); RED BLOOD COUNT 3.32 10^6/uL (4.35-5.55); RED CELL DISTRIBUTION WIDTH 15.2 % (11.5-14.0); RETICULOCYTE COUNT (AUTO) 2.04 % (0.66-2.85); WHITE BLOOD COUNT 9.6 10^3/uL (4.0-10.5)
[2020-09-15 06:50] LABS: ALBUMIN 2.6 g/dL (3.5-5.0); ALKALINE PHOSPHATASE 123 U/L (38-126); ANION GAP 5 (5-19); ASPARTATE AMINO TRANSFERASE 24 U/L (17-59); BILIRUBIN,DIRECT 0.2 mg/dL (0.0-0.4); BILIRUBIN,TOTAL 0.5 mg/dL (0.2-1.3); CALCIUM 8.5 mg/dL (8.4-10.2); CARBON DIOXIDE 31 mmol/L (22-30); CHLORIDE 100 mmol/L (98-107); GLUCOSE 112 mg/dL (75-110); IRON(TIBC) 22.3 ug/dL (49-181); PHOSPHORUS 3.8 mg/dL (2.5-4.5); TOTAL PROTEIN 5.8 g/dL (6.3-8.2)
[2020-09-15 07:01] LABS: MEAN CORPUSCULAR VOLUME 90 fl (80-97)
[2020-09-15 08:21] LABS: BLOOD UREA NITROGEN 26 mg/dL (7-20); POTASSIUM 4.7 mmol/L (3.6-5.0)
[2020-09-15] MEDS: INSULIN LISPRO 100 UNIT/ML 3 ML VIAL SUBCUT SCH (08:40)
[2020-09-15 09:51] VITALS: BP 141/68
--- NOTE | 2020-09-15 12:18 | PDOC DISCHARGE SUMMARY ---
Impression - Admit/DC Date/PCP Admission Date/Primary Care Provider: 09/14/20 15:40 Discharge Date: 09/15/20 - Discharge Diagnosis (1) Anemia in chronic kidney disease (CKD) Is this a current diagnosis for this admission?: Yes (2) Essential hypertension Is this a current diagnosis for this admission?: Yes (3) Hyperkalemia Is this a current diagnosis for this admission?: Yes (4) Type 2 diabetes mellitus Is this a current diagnosis for this admission?: Yes - Additional Information Discharge Diet: Diabetic Discharge Activity: Activity As Tolerated Referrals: MANSOOR GONSALES PA-C [NO LOCAL MD] - Prescriptions: Insulin Glargine,Hum.rec.anlog [Lantus Insulin 100 Unit/mL Insulin Pen] 10 unit SUBCUT QHS 30 Days #10 ml Home Medications: Carvedilol [Coreg 6.25 mg Tablet] 12.5 mg NG Q12 #60 tablet 08/19/20 Docusate Sodium [Colace Udc 100 mg/10 ml Oral Soln] 100 mg NG Q2D@1000 #30 udc 08/19/20 Melatonin [Melatonin 5 mg Tablet] 10 mg NG QHS #30 tablet 08/19/20 Midodrine HCl [Proamatine 5 mg Tablet] 5 mg NG .DIALYSIS PRN #12 tablet 08/19/20 Clonidine HCl [Catapres 0.1 mg Tablet] 0.2 mg PO Q12 09/14/20 Glipizide [Glipizide Xl] 5 mg PO Q12 09/14/20 Insulin Aspart [Novolog Flexpen] 0 unit SUBCUT .PER SLIDING 09/14/20 Lorazepam [Ativan 0.5 mg Tablet] 0.5 mg PO BIDP PRN 09/14/20 Metoclopramide HCl [Reglan Oral Soln 10 mg/10 ml Udcup] 10 mg NG Q6 09/14/20 Oxycodone HCl 5 ml PO BIDP PRN 09/14/20 Sevelamer Carbonate [Renvela] 0.8 gm PO TID 09/14/20 Simvastatin [Zocor 40 mg Tablet] 40 mg PO QHS 09/14/20 Insulin Glargine,Hum.rec.anlog [Lantus Insulin 100 Unit/mL Insulin Pen] 10 unit SUBCUT QHS 30 Days #10 ml 09/15/20 History of Present Illiness History of Present Illness: TINA YUAN is a 70 year old male past medical history of end-stage renal disease on hemodialysis, anemia of CKD, hypertension, type 2 diabetes, recently hospitalized at [facility] for for chronic cholecystitis status post complicated cholecystectomy, patient was also having problem dysphagia, failed swallow study and was sent home with his sister with a PEG tube. Patient was sent to ED from dialysis center for hypoxia, lethargy and weakness, and anemia. In ED patient was noted to have hemoglobin of 6.8, calcium of 6.0. Dr. Hill from nephrology by ED physician and she agreed to be admitted for hemodialysis and PRBC transfusion. Saw patient while receiving hemodialysis, in no apparent distress, when asked why he is in the hospital stating he does not know, he denies any chest pain, lightheadedness, nausea, vomiting, diarrhea, constipation, fever, chills, shortness of breath, nosebleed, hematemesis, hematuria, hemoptysis, hematochezia or melena. Patient is stating that he is p.o. tolerant and has PEG tube from previous admission has been removed. Patient is DNR/DNI, living with his sister, anxious to be discharged home as soon as possible. Hospital Course Hospital Course: (1) Anemia in chronic kidney disease (CKD) Anemia CKD. Baseline hemoglobin 7-8. Presented with with sudden drop at 6.8 with no apparent reason. Denied any any nosebleed, hematemesis, hemoptysis, hematochezia, melena or hematuria. Received 2 PRBC on this admission. Hemoglobin 10 at the time of discharge. Receiving Procrit due to hemodialysis by dental intern. (2) Essential hypertension Euvolemic. Normotensive. Resume home meds. Adjust meds as needed. Outpatient PCP follow-up. (3) Hyperkalemia Resolved. Received hemodialysis. No acute EKG changes. Most likely due to end-stage renal disease. (4) Type 2 diabetes mellitus Probably overtreated based on hemoglobin A1c 5.3% from previous admission. Given age and comorbidity hemoglobin A1c goal should be 7 to 8%. Repeat hemoglobin A1c 5.9. Was a started on diabetic diet, sliding scale insulin, basal insulin, Accu-Chek, hypoglycemia protocol. Discharged on home meds and decrease Lantus to 10 units from 14 units. Encouraged to follow-up with PCP readjustment of his insulin, and monitor blood glucose level at home. Physical Exam Vital Signs: Temp Pulse Resp BP Pulse Ox 98.8 F 90 18 141/68 H 99 09/15/20 09:07 09/15/20 09:07 09/15/20 09:07 09/15/20 09:07 09/15/20 09:07 Intake & Output 09/14/20 09/15/20 09/16/20 06:59 06:59 06:59 Intake Total 1300 Output Total 3000 Balance -1700 Weight 50.7 kg General appearance: PRESENT: no acute distress, well-developed, well-nourished Head exam: PRESENT: atraumatic, normocephalic Neck exam: ABSENT: carotid bruit, JVD, lymphadenopathy, thyromegaly Cardiovascular exam: PRESENT: RRR. ABSENT: diastolic murmur, rubs, systolic murmur GI/Abdominal exam: PRESENT: normal bowel sounds, soft. ABSENT: distended, guarding, mass, organolmegaly, rebound, tenderness Neurological exam: PRESENT: alert, awake, oriented to person, oriented to place, CN II-XII grossly intact. ABSENT: motor sensory deficit Results Laboratory Results: WBC 9.6 10^3/uL (4.0-10.5) 09/15/20 05:59 RBC 3.32 10^6/uL (4.35-5.55) L 09/15/20 05:59 Hgb 10.0 g/dL (13.5-17.0) L D 09/15/20 05:59 Hct 29.8 % (37.9-51.0) L 09/15/20 05:59 MCV 90 fl (80-97) D 09/15/20 05:59 MCH 30.3 pg (27.0-33.4) 09/15/20 05:59 MCHC 33.7 g/dL (32.0-36.0) 09/15/20 05:59 RDW 15.2 % (11.5-14.0) H 09/15/20 05:59 Plt Count 225 10^3/uL (150-450) 09/15/20 05:59 Lymph % (Auto) 28.2 % (13-45) 09/14/20 13:24 [place] % (Auto) 6.5 % (3-13) 09/14/20 13:24 Eos % (Auto) 8.7 % (0-6) H 09/14/20 13:24 Baso % (Auto) 0.5 % (0-2) 09/14/20 13:24 Reticulocyte # 0.068 10^6/uL (0.028-0.122) 09/15/20 05:59 Absolute Neuts (auto) 5.7 10^3/uL (1.7-8.2) 09/14/20 13:24 Absolute Lymphs (auto) 2.9 10^3/uL (0.5-4.7) 09/14/20 13:24 Absolute Monos (auto) 0.7 10^3/uL (0.1-1.4) 09/14/20 13:24 Absolute Eos (auto) 0.9 10^3/uL (0.0-0.6) H 09/14/20 13:24 Absolute Basos (auto) 0.0 10^3/uL (0.0-0.2) 09/14/20 13:24 Seg Neutrophils % 56.1 % (42-78) 09/14/20 13:24 Retic Count (auto) 2.04 % (0.66-2.85) 09/15/20 05:59 APTT 33.8 SEC (23.5-35.8) 09/15/20 05:59 Sodium 135.6 mmol/L (137-145) L 09/15/20 05:59 Potassium 4.7 mmol/L (3.6-5.0) D 09/15/20 05:59 Chloride 100 mmol/L (98-107) 09/15/20 05:59 Carbon Dioxide 31 mmol/L (22-30) H 09/15/20 05:59 Anion Gap 5 (5-19) 09/15/20 05:59 BUN 26 mg/dL (7-20) H D 09/15/20 05:59 Creatinine 2.45 mg/dL (0.52-1.25) H 09/15/20 05:59 Est GFR ( Amer) 32 (>60) L 09/15/20 05:59 Est GFR (MDRD) Non-Af 26 (>60) L 09/15/20 05:59 Glucose 112 mg/dL (75-110) H 09/15/20 05:59 POC Glucose 189 mg/dL (70-110) H 09/15/20 08:44 Hemoglobin A1c % 5.9 % (4.7-6.0) 09/14/20 13:24 Calcium 8.5 mg/dL (8.4-10.2) 09/15/20 05:59 Phosphorus 3.8 mg/dL (2.5-4.5) 09/15/20 05:59 Magnesium 2.2 mg/dL (1.6-2.3) 09/15/20 05:59 Iron 22.3 ug/dL (49-181) L 09/15/20 05:59 TIBC 207 ug/dL (250-450) L 09/15/20 05:59 % Saturation 11 % 09/15/20 05:59 Ferritin 790.00 ng/mL (17.9-464.0) H 09/15/20 05:59 Total Bilirubin 0.5 mg/dL (0.2-1.3) 09/15/20 05:59 Direct Bilirubin 0.2 mg/dL (0.0-0.4) 09/15/20 05:59 Neonat Total Bilirubin Not Reportable 09/15/20 05:59 Neonat Direct Bilirubin Not Reportable 09/15/20 05:59 Neonat Indirect Bili Not Reportable 09/15/20 05:59 AST 24 U/L (17-59) 09/15/20 05:59 ALT 12 U/L (<50) 09/15/20 05:59 Alkaline Phosphatase 123 U/L (38-126) 09/15/20 05:59 Total Protein 5.8 g/dL (6.3-8.2) L 09/15/20 05:59 Albumin 2.6 g/dL (3.5-5.0) L 09/15/20 05:59 Vitamin B12 805.0 pg/mL (239-931) 09/15/20 05:59 Folate 5.20 ng/mL (>2.76) 09/15/20 05:59 Blood Type A POSITIVE 09/14/20 14:05 Blood Type Confirm A POSITIVE 09/14/20 14:05 Antibody Screen NEGATIVE 09/14/20 14:05 Crossmatch See Detail 09/14/20 14:05 Impressions: Chest X-Ray 09/14/20 13:14 IMPRESSION: NO ACUTE RADIOGRAPHIC FINDING IN THE CHEST. Stroke Is this a Stroke Patient?: No Acute Heart Failure Is this a Heart Failure Patient?: No
== END 2020-09-15 11:14 | disposition home or self-care (01) | DRG 682 ==
LOC: ER 12:05 → EH 15:40 → 3S 18:23
PROVIDERS: ADMIT Internal Medicine; ATTEND Internal Medicine
PROC: 30233N1 Transfusion of Nonautologous Red Blood Cells into Peripheral Vein, Percutaneous Approach (ICD-10-PCS; principal; 2020-09-14)
PROC: 5A1D70Z Performance of Urinary Filtration, Intermittent, Less than 6 Hours Per Day (ICD-10-PCS; 2020-09-14)
DX: I12.0 Hypertensive chronic kidney disease with stage 5 chronic kidney disease or end stage renal disease (principal); N18.6 End stage renal disease; D63.1 Anemia in chronic kidney disease; E11.22 Type 2 diabetes mellitus with diabetic chronic kidney disease; E87.5 Hyperkalemia; Z66 Do not resuscitate; E78.5 Hyperlipidemia, unspecified; M19.90 Unspecified osteoarthritis, unspecified site; Z90.49 Acquired absence of other specified parts of digestive tract; Z79.4 Long term (current) use of insulin; Z99.2 Dependence on renal dialysis; Z93.1 Gastrostomy status; Z79.899 Other long term (current) drug therapy
CPT/HCPCS: 36415; 36430; 71045; 80053; 82607; 82728; 82746; 82962; 83036; 83540; 83550; 83735; 84100; 85025; 85027; 85045; 85730; 86850; 86900; 86901; 86920; 93005; 93010; 99285; J1644; J1815; J3490; P9016; Q5105

== ENCOUNTER 2020-09-28 00:19 | Emergency (ER) | payer MEDICARE ==
[2020-09-28 01:15] LABS: ABSOLUTE BASOPHILS # (AUTO) 0.1 10^3/uL (0.0-0.2); ABSOLUTE EOSINOPHILS # (AUTO) 1.1 10^3/uL (0.0-0.6); ABSOLUTE LYMPHOCYTES (AUTO) 3.3 10^3/uL (0.5-4.7); ABSOLUTE MONOCYTES (AUTO) 1.1 10^3/uL (0.1-1.4); HEMOGLOBIN 9.7 g/dL (13.5-17.0); TOTAL CELLS COUNTED % (AUTO) 100 %
[2020-09-28 01:16] LABS: INTERNATIONAL RATION (INR) 1.08; PROTHROMBIN TIME 14.2 SEC (11.4-15.4)
[2020-09-28 01:30] LABS: ABSOLUTE NEUT (AUTO) 4.9 10^3/uL (1.7-8.2); BASOPHILS % (AUTO) 0.9 % (0-2); EOSINOPHILS % (AUTO) 10.2 % (0-6); HEMATOCRIT 30.1 % (37.9-51.0); LYMPHOCYTES % (AUTO) 31.5 % (13-45); MEAN CORPUSCULAR HEMOGLOBIN 28.8 pg (27.0-33.4); MEAN CORPUSCULAR HGB CONC 32.1 g/dL (32.0-36.0); MEAN CORPUSCULAR VOLUME 90 fl (80-97); MONOCYTES % (AUTO) 10.2 % (3-13); PLATELET COUNT 330 10^3/uL (150-450); RED BLOOD COUNT 3.36 10^6/uL (4.35-5.55); RED CELL DISTRIBUTION WIDTH 15.9 % (11.5-14.0); SEGMENTED NEUTROPHILS % (AUTO) 47.2 % (42-78); WHITE BLOOD COUNT 10.4 10^3/uL (4.0-10.5)
[2020-09-28 01:32] LABS: ALBUMIN 2.8 g/dL (3.5-5.0); ALKALINE PHOSPHATASE 117 U/L (38-126); ANION GAP 8 (5-19); ASPARTATE AMINO TRANSFERASE 23 U/L (17-59); BILIRUBIN,DIRECT 0.4 mg/dL (0.0-0.4); BILIRUBIN,TOTAL 0.5 mg/dL (0.2-1.3); BLOOD UREA NITROGEN 37 mg/dL (7-20); CARBON DIOXIDE 29 mmol/L (22-30); CHLORIDE 100 mmol/L (98-107); CREATINE KINASE < 20 U/L (55-170); GLUCOSE 160 mg/dL (75-110); POTASSIUM 4.5 mmol/L (3.6-5.0)
[2020-09-28 01:44] LABS: CREATINE KINASE MB 1.09 ng/mL (<4.55)
[2020-09-28 01:45] LABS: TROPONIN I < 0.012 ng/mL
[2020-09-28] MEDS ORDERED: NITROGLYCERIN 2% OINTMENT 1 GM PACKET TP ONE (01:46)
--- NOTE | 2020-09-28 01:47 | ER Document Report ---
ED General - General Chief Complaint: Chest Pain Stated Complaint: CHEST PAIN Time Seen by Provider: 09/28/20 01:29 Primary Care Provider: MANSOOR GONSALES PA-C [Primary Care Provider] - Follow up as needed TRAVEL OUTSIDE OF THE [place] IN LAST 30 DAYS: No - HPI Context: Time:[0 129] Chief Complaint: [Chest pain] [70-year-old male presents complaining of chest pain of 2 hours duration ] History obtained from [patient] Symptoms began:[2 hours prior to presentation] Onset: [Sudden] Timing: [While sitting in bed] Quality: [Sharp] Intensity: [5] Location: [Chest] Radiation: [Denies] [The pain does not migrate to a new location.] Aggravating factors: [none] Relieving factors: [none] [Denies] SOB [Denies] nausea [Denies] vomiting [Denies] sweats [Denies] fever [Denies] cough [Denies] calf or leg swelling or pain - Related Data Allergies/Adverse Reactions: No Known Allergies Allergy (Verified 09/04/20 12:54) Home Medications: Carvedilol. stool softner. oxycodene. metalone. Lantus. Novolog. oral suspension sevelamer Past Medical History - General Information source: Patient - Social History Smoking Status: Former Smoker Chew tobacco use (# tins/day): No Frequency of alcohol use: None Drug Abuse: None Family History: Reviewed & Not Pertinent - Past Medical History Cardiac Medical History: Reports: Hx Hypercholesterolemia, Hx Hypertension Denies: Hx Coronary Artery Disease, Hx Heart Attack Pulmonary Medical History: Denies: Hx Asthma, Hx Bronchitis, Hx COPD, Hx Pneumonia Neurological Medical History: Denies: Hx Cerebrovascular Accident, Hx Seizures Endocrine Medical History: Reports: Hx Diabetes Mellitus Type 2 Renal/ Medical History: Reports: Hx End Stage Renal Disease. Denies: Hx Peritoneal Dialysis Musculoskeletal Medical History: Reports Hx Arthritis Psychiatric Medical History: Denies: Hx Depression Past Surgical History: Reports: Hx Cholecystectomy, Hx Orthopedic Surgery - right shoulder - Immunizations Hx Diphtheria, Pertussis, Tetanus Vaccination: No Hx Pneumococcal Vaccination: 03/23/13 Review of Systems - Review of Systems Notes: Review of systems as below unless otherwise stated in HPI. CONSTITUTIONAL [No] fever, [No] chills. EYES [No] eye pain. ENT [No] URI symptoms, [No] sore throat, [No] ear pain. CARDIOVASCULAR Positive chest pain, [No] palpitations, [No] edema. RESPIRATORY [No] Cough, [No] SOB, [No] wheezing. GASTROINTESTINAL [No] abdominal pain, [No] nausea, [No] Diarrhea, [No] Vomiting, [No] constipation, [No] melena, [No] rectal bleeding. GENITOURINARY [No] dysuria, [No] urinary frequency, [No] hematuria, [No] urinary urgency MUSCULOSKELETAL [No] Back pain. SKIN [No] Rash. NEUROLOGIC [No] Headache, [No] recent seizures, [No] paralysis,[No] parathesias. ENDOCRINE [No] polyuria. HEMO/LYMPATIC [No] easy brusing PSYCHIATRIC [No] depression. Physical Exam - Vital signs Vitals: Resp Pulse Ox 19 82 L 09/28/20 00:19 09/28/20 00:19 - Notes Notes: CONSTITUTIONAL [Vital signs reviewed, Patient appears comfortable, Alert and oriented X 3, Normal stature.] HEAD [Atraumatic, Normocephalic.] EYES [Eyes are normal to inspection, No discharge from eyes, Extraocular muscles intact, Sclera are normal, Conjunctiva are normal.] ENT [External ears normal to inspection, Nose examination normal, Mouth normal to inspection.] NECK [Normal ROM, No jugular venous distention, No meningeal signs, ] RESPIRATORY CHEST [Chest is nontender, Breath sounds normal, No respiratory distress.] CARDIOVASCULAR [RRR, No murmurs, Normal S1 S2, No rub, No gallop.] ABDOMEN [Abdomen is nontender, No pulsatile masses, No other masses, Bowel sounds n ormal, No distension, No peritoneal signs, No hernias.] BACK [There is no CVA Tenderness, There is no tenderness to palpation, Normal inspection.] UPPER EXTREMITY [Inspection normal, No cyanosis, No clubbing, No edema, LOWER EXTREMITY [Inspection normal, No cyanosis, No clubbing, No edema, No calf tenderness, NEURO [No focal motor deficits, No focal sensory deficits, Speech normal.] SKIN [Skin is warm, Skin is dry, Skin is normal color.] PSYCHIATRIC [Normal affect. ] Course - Re-evaluation Re-evalutation: 09/28/20 06:57 Results of ED MSE discussed with patient. All questions were answered prior to discharge. Emergency signs and symptoms, reasons to return to the emergency department discussed with patient. - Vital Signs Vital signs: Temp Pulse Resp BP Pulse Ox 98.9 F 17 155/93 H 98 09/28/20 06:08 09/28/20 05:01 09/28/20 05:00 09/28/20 05:01 - Laboratory Result Diagrams: 09/28/20 00:33 09/28/20 00:33 Laboratory results interpreted by me: 09/28/20 09/28/20 00:33 00:33 RBC 3.36 L Hgb 9.7 L Hct 30.1 L RDW 15.9 H Eos % (Auto) 10.2 H Absolute Eos (auto) 1.1 H BUN 37 H Creatinine 3.26 H Est GFR ( Amer) 23 L Est GFR (MDRD) Non-Af 19 L Glucose 160 H Creatine Kinase < 20 L Total Protein 6.0 L Albumin 2.8 L - Diagnostic Test Radiology reviewed: Reports reviewed - EKG Interpretation by Me Additional EKG results interpreted by me: 09/28/20 07:00 EKG obtained on 09/28/2020 at 00 44 hours was interpreted by this MD. Findings: Normal sinus rhythm, rate 86, normal axis, CT interval appears to be within normal limits, P waves preceding QRS complexes, QRS complexes appear narrow, QTC is 450, there are no obvious patterns of ST segment elevation, depression or reciprocal changes present to suggest acute myocardial ischemia or infarction. There is no prior EKG immediately available for comparison. Impression: Normal sinus rhythm with nonspecific ST segments Discharge - Discharge Clinical Impression: Chest pain Qualifiers: Chest pain type: unspecified Qualified Code(s): R07.9 - Chest pain, unspecified Condition: Stable Disposition: HOME, SELF-CARE Additional Instructions: Return to the Emergency Department without delay if any worse. HOME CARE INSTRUCTIONS & INFORMATION: Thank you for choosing us for your medic al needs. We hope you're satisfied with the care you received. After you leave, you must properly care for your problem and, at the same time, observe its progress. Any condition can change. Some illnesses can change rapidly over hours or days. If your condition worsens, return to the Emergency Department or see your physician promptly. ABOUT YOUR X-RAYS AND EKG'S: If you had an EKG or X-rays taken, they have been read by the Emergency Physician. The X-rays and EKG's will also be read by a Radiologist or [employer] Team within 24 hours. If discrepancies are noted, you will be notified by telephone. Please be certain the ED has a correct telephone number & address where you can be reached. Also, realize that some fractures or abnormalities do not show up on initial X-rays. If your symptoms continue, see your physician. ABOUT YOUR LABORATORY TEST: If you had laboratory tests, the results have been reviewed by the Emergency Physician. Some test results (for example cultures) m ay not be available for several days. You will be contacted if any test result shows you need additional treatment. Please be certain the ED has a correct telephone number and address where you can be reached. ABOUT YOUR MEDICATIONS: You will receive instructions on how to take your medicine on the prescription label you receive. Additional information may be provided by the Pharmacy. If you have questions afterwards, call the ED for clarification or further instructions. Some prescribed medications may cause drowsiness. Do not perform tasks such as driving a car or operating machinery without consulting your Pharmacist. If you feel you need a refill of pain medication, your condition will need re-evaluation. Please do not call for a refill of any medication. ABOUT YOUR SIGNATURE: Signature of this document acknowledges to followin. Understanding that you received emergency treatment and that you may be released before al medical problems are known or treated. Please be certain the ED has a correct phone number & address where you can be reached. 2. Acknowledgement that you will arrange for follow-up care as recommended. 3. Authorization for the Emergency Physician to provide information to your follow-up Physician in order to maximize your care. AT ANY TIME, IF YOUR SYMPTOMS CHANGE SIGNIFICANTLY OR WORSEN OR YOU DEVELOP NEW SYMPTOMS, RETURN TO THE EMERGENCY DEPARTMENT IMMEDIATELY FOR RE-EVALUATION. OUR GOAL IS TO PROVIDE EXCELLENT MEDICAL CARE! WE HOPE THAT WE HAVE MET YOUR EXPECTATIONS DURING YOUR EMERGENCY DEPARTMENT VISIT AND THAT YOU FEEL YOU HAVE RECEIVED EXCELLENT CARE! Referrals: MANSOOR GONSALES PA-C [Primary Care Provider] - Follow up as needed
--- NOTE | 2020-09-28 01:50 | RADIOLOGY REPORT (SQ) ---
EXAM DESCRIPTION: X-RAY CHEST- One View CLINICAL HISTORY: Chest pain COMPARISON: September 14, 2020 TECHNIQUE: Single view of the chest. FINDINGS: Overlying EKG leads. Left chest tunneled catheter is in stable positioning. There is trace blunting of the bilateral costophrenic angles. The cardiac silhouette is stable in size. Atherosclerotic vascular calcifications are again noted. Reverse right shoulder arthroplasty is grossly stable. IMPRESSION: 1. Stable positioning of left-sided central line. 2. Potential trace bilateral pleural effusions. 3. Atherosclerotic vascular disease.
[2020-09-28 05:38] VITALS: BP 155/93
--- NOTE | 2020-09-28 08:14 | EKG REPORT ---
SEVERITY:- BORDERLINE ECG - SINUS RHYTHM PROBABLE LEFT ATRIAL ABNORMALITY : Confirmed by: Lisbet Mcgee 28-Sep-2020 08:13:10
== END 2020-09-28 06:08 | disposition home or self-care (01) ==
LOC: ER 00:19
DX: R07.9 Chest pain, unspecified (principal); Z87.891 Personal history of nicotine dependence; Z79.899 Other long term (current) drug therapy; Z79.4 Long term (current) use of insulin; I10 Essential (primary) hypertension; E11.9 Type 2 diabetes mellitus without complications
CPT/HCPCS: 93005; 99285; 36415; 82553; 82550; 85025; 85610; 80053; 84484; 71045; 93010; A9270

== ENCOUNTER 2020-10-19 01:45 | Inpatient (IN) | payer MEDICARE ==
[2020-10-19 02:24] LABS: VENOUS BLOOD BASE EXCESS 2.8 mmol/L; VENOUS BLOOD HCO3 27.4 mmol/L (20-32); VENOUS BLOOD PCO2 42.4 mmHg (35-63); VENOUS BLOOD PH 7.43 (7.30-7.42)
[2020-10-19 02:31] LABS: ABSOLUTE LYMPHOCYTES (AUTO) 1.5 10^3/uL (0.5-4.7); ABSOLUTE MONOCYTES (AUTO) 0.7 10^3/uL (0.1-1.4); ABSOLUTE NEUT (AUTO) 6.9 10^3/uL (1.7-8.2); BASOPHILS % (AUTO) 0.3 % (0-2); EOSINOPHILS % (AUTO) 0.4 % (0-6); HEMATOCRIT 26.5 % (37.9-51.0); HEMOGLOBIN 8.8 g/dL (13.5-17.0); LYMPHOCYTES % (AUTO) 16.8 % (13-45); MEAN CORPUSCULAR HEMOGLOBIN 27.5 pg (27.0-33.4); MONOCYTES % (AUTO) 7.4 % (3-13); PLATELET COUNT 264 10^3/uL (150-450); RED BLOOD COUNT 3.19 10^6/uL (4.35-5.55); SEGMENTED NEUTROPHILS % (AUTO) 75.1 % (42-78); TOTAL CELLS COUNTED % (AUTO) 100 %; WHITE BLOOD COUNT 9.2 10^3/uL (4.0-10.5)
[2020-10-19 02:34] LABS: MEAN CORPUSCULAR VOLUME 83 fl (80-97)
[2020-10-19 02:42] LABS: INTERNATIONAL RATION (INR) 1.02; PROTHROMBIN TIME 13.6 SEC (11.4-15.4)
[2020-10-19 02:43] LABS: ALBUMIN 2.7 g/dL (3.5-5.0); ALKALINE PHOSPHATASE 165 U/L (38-126); ANION GAP 9 (5-19); ASPARTATE AMINO TRANSFERASE 56 U/L (17-59); BILIRUBIN,DIRECT 0.3 mg/dL (0.0-0.4); BILIRUBIN,TOTAL 0.5 mg/dL (0.2-1.3); BLOOD UREA NITROGEN 20 mg/dL (7-20); CARBON DIOXIDE 29 mmol/L (22-30); CHLORIDE 102 mmol/L (98-107); GLUCOSE 176 mg/dL (75-110); POTASSIUM 3.5 mmol/L (3.6-5.0); TOTAL PROTEIN 5.9 g/dL (6.3-8.2)
--- NOTE | 2020-10-19 03:10 | RADIOLOGY REPORT (SQ) ---
EXAM DESCRIPTION: XR CHEST 1 VIEW COMPLETED DATE/TME: 10/19/2020 02:35 CLINICAL HISTORY: 70 years, Male, positive covid, fever COMPARISON: All 09/28/2020 chest NUMBER OF VIEWS: 1 TECHNIQUE: Portable chest LIMITATIONS: None. FINDINGS: Heart size is normal. Central venous catheter in place. Postsurgical change right shoulder. Osteopenia. Lungs are clear. No pneumothorax. Atheromatous change thoracic aorta IMPRESSION: No acute cardiopulmonary process copyright 2010 [employer]- All Rights Reserved
[2020-10-19 03:50] LABS: APPEARANCE,URINE CLEAR; BILIRUBIN,URINE NEGATIVE (NEGATIVE); COLOR,URINE YELLOW; GLUCOSE, URINE >=500 mg/dL (NEGATIVE); KETONES,URINE NEGATIVE (NEGATIVE); PROTEIN,URINE 100 mg/dL (NEGATIVE); URINE SPECIFIC GRAVITY 1.009; UROBILINOGEN,URINE NEGATIVE mg/dL (<2.0)
--- NOTE | 2020-10-19 06:34 | EKG REPORT ---
SEVERITY:- ABNORMAL ECG - SINUS RHYTHM ATRIAL PREMATURE COMPLEX PROBABLE LEFT ATRIAL ABNORMALITY BORDERLINE LEFT AXIS DEVIATION BORDERLINE T ABNORMALITIES, DIFFUSE LEADS : Confirmed by: Dk Zaragoza MD 19-Oct-2020 06:33:59
[2020-10-19] MEDS ORDERED: ACETAMINOPHEN 325 MG TABLET PO ONE (06:38)
--- NOTE | 2020-10-19 07:09 | ER Document Report ---
Entered by DEMETRIO BUNCH SCRIBE 10/19/20 0615 Acting as scribe for:SYBIL MONTILLA MD ED Fever - General Chief Complaint: Fever Stated Complaint: FEVER Time Seen by Provider: 10/19/20 06:11 Mode of Arrival: Medic Information source: Patient, Emergency Med Personnel Notes: This 70 year old male patient with a history of hypertension, hyperlipidemia, type 2 diabetes, and ESRD on HD () presents to the ED today via EMS with complaints of fever and an episode of emesis last night per family. Per nursing note, patient tested positive for COVID last week. Family report that the patient had vomited once and had a temperature last night, so they administered 650 mg Tylenol and called EMS. Upon EMS arrival, the patient had an oral temperature of 103, so they administered 325 mg Tylenol. When he got here, patient's temperature was 102.9. Patient denies any complaints at this time and states "I feel pretty good right now." He states that he does not recall vomiting or having a temperature last night. He also mentions that he went to dialysis yesterday. TRAVEL OUTSIDE OF THE [place] IN LAST 30 DAYS: No - Related Data Allergies/Adverse Reactions: No Known Allergies Allergy (Verified 09/04/20 12:54) Home Medications: Lantus, Carvedilol, Lorazepam, Novolog Past Medical History - General Information source: Patient, [facility] Records - Social History Smoking Status: Former Smoker Cigarette use (# per day): No Chew tobacco use (# tins/day): No Smoking Education Provided: No Lives with: Family Family History: Reviewed & Not Pertinent Patient has suicidal ideation: No Patient has homicidal ideation: No - Past Medical History Cardiac Medical History: Reports: Hx Hypercholesterolemia, Hx Hypertension Endocrine Medical History: Reports: Hx Diabetes Mellitus Type 2 Renal/ Medical History: Reports: Hx End Stage Renal Disease, Hx Hemodialysis Musculoskeletal Medical History: Reports Hx Arthritis Past Surgical History: Reports: Hx Cholecystectomy, Hx Orthopedic Surgery - right shoulder - Immunizations Hx Diphtheria, Pertussis, Tetanus Vaccination: No Hx Pneumococcal Vaccination: 03/23/13 Review of Systems - Review of Systems Constitutional: See HPI, Fever, Recent illness EENT: No symptoms reported Cardiovascular: No symptoms reported Respiratory: No symptoms reported Gastrointestinal: See HPI, Vomiting Genitourinary: No symptoms reported Male Genitourinary: No symptoms reported Musculoskeletal: No symptoms reported Skin: No symptoms reported Hematologic/Lymphatic: No symptoms reported Neurological/Psychological: No symptoms reported -: Yes All other systems reviewed and negative Physical Exam - Vital signs Vitals: Temp Pulse Resp BP Pulse Ox 102.9 F H 96 22 H 125/65 96 10/19/20 01:45 10/19/20 01:45 10/19/20 01:45 10/19/20 01:45 10/19/20 01:45 - General General appearance: Alert In distress: None - HEENT Head: Normocephalic, Atraumatic Eyes: Normal Pupils: PERRL Pharynx: Normal. No: Erythema Neck: Normal, Supple - Respiratory Respiratory status: Other - Patient becomes tachypneic with talking Chest status: Nontender Breath sounds: Normal Chest palpation: Normal - Cardiovascular Rhythm: Regular Heart sounds: Normal auscultation Murmur: Yes - grade 3 systolic ejection murmur Friction rub: No Gallop: None auscultated - Abdominal Inspection: Normal Distension: No distension Bowel sounds: Normal Tenderness: Nontender - Abdomen soft Organomegaly: No organomegaly - Back Back: Normal, Nontender - Extremities General upper extremity: Normal inspection General lower extremity: Normal inspection. No: Edema - Neurological Neuro grossly intact: Yes - Psychological Associated symptoms: Normal affect, Normal mood - Skin Skin Temperature: Warm Skin Moisture: Dry Skin Color: Normal Course - Re-evaluation Re-evalutation: 10/19/20 07:34 The patient was evaluated during the global COVID-19 pandemic and that diagnosis was suspected/considered upon their initial presentation. Their evaluation, treatment and testing was consistent with current guidelines for patients who present with complaints or symptoms that may be related to COVID-19. At this time patient has heart rate of 86, and a room air pulse oximetry reading of 94%. I attempted to contact June Aguayo who is listed in the chart as the person to contact. Her name was also on the EMS quick release form, with a phone number written down which is different from the phone number in the computer. I called the phone number on the EMS quick release form, got an answering machine, never got a call back. 10/19/20 09:47 The nurse spoke with the patient's sister. She states he moved in with her after his gallbladder surgery in July. She states she has been going downhill since then. She further states that he does not have any memory deficits. She told the nurse that she could not take care of him any longer and did not want him returning to her home. She also stated she did not know who June Aguayo was. - Vital Signs Vital signs: Temp Pulse Resp BP Pulse Ox 98.1 F 96 19 170/76 H 98 10/19/20 14:00 10/19/20 01:45 10/19/20 16:01 10/19/20 16:00 10/19/20 16:00 - Laboratory Results Result Diagrams: 10/19/20 01:55 10/19/20 01:55 Laboratory Results Interpreted: 10/19/20 10/19/20 10/19/20 01:55 01:55 01:55 RBC 3.19 L Hgb 8.8 L Hct 26.5 L RDW 17.0 H D-Dimer VBG pH 7.43 H Potassium 3.5 L Creatinine 2.87 H Est GFR ( Amer) 26 L Est GFR (MDRD) Non-Af 22 L Glucose 176 H Calcium 8.0 L Ferritin Alkaline Phosphatase 165 H Creatine Kinase C-Reactive Protein Total Protein 5.9 L Albumin 2.7 L Urine Protein Urine Glucose (UA) 10/19/20 10/19/20 10/19/20 01:55 01:55 01:55 RBC Hgb Hct RDW D-Dimer 5.76 H VBG pH Potassium Creatinine Est GFR ( Amer) Est GFR (MDRD) Non-Af Glucose Calcium Ferritin 965.00 H Alkaline Phosphatase Creatine Kinase 25 L C-Reactive Protein 65.4 H Total Protein Albumin Urine Protein Urine Glucose (UA) 10/19/20 02:25 RBC Hgb Hct RDW D-Dimer VBG pH Potassium Creatinine Est GFR ( Amer) Est GFR (MDRD) Non-Af Glucose Calcium Ferritin Alkaline Phosphatase Creatine Kinase C-Reactive Protein Total Protein Albumin Urine Protein 100 H Urine Glucose (UA) >=500 H Critical Laboratory Results Reviewed: Yes Attending or Supervising Physician who Reviewed Labs: SYBIL MONTILLA - Elevated D-dimer, anemia, chronic renal failure - Radiology Results Critical Radiology Results Reviewed: No Critical Results - Chest x-ray does not show acute cardiopulmonary process. - EKG Interpretation by [facility] EKG shows normal: Sinus rhythm, [place], Intervals, QRS Complexes. abnormal: ST-T Waves - Diffuse borderline T abnormalities Rate: Normal - 94 Rhythm: NSR, APC's [place]/QRS: Left axis deviation P Waves: LAE When compared to previous EKG there are: Changes noted - Consults Dr. Moyer Time consulted: 09:50 Consulted provider: will come to ER Discharge - Discharge Clinical Impression: COVID-19 virus infection, Chronic renal failure, stage 5, Confusion Fever Qualifiers: Fever type: unspecified Qualified Code(s): R50.9 - Fever, unspecified Condition: Stable Disposition: ADMITTED INPATIENT Admitting Provider: [facility] (Hospitalist) Unit Admitted: [facility] I personally performed the services described in the documentation, reviewed and edited the documentation which was dictated to the scribe in my presence, and it accurately records my words and actions.
[2020-10-19 07:33] LABS: C-REACTIVE PROTEIN 65.4 mg/L (<10.0)
--- NOTE | 2020-10-19 12:34 | PDOC H&P ---
History of Present Illness Admission Date/PCP: 10/19/20 10:48 MANSOOR GONSALES PA-C Patient complains of: COVID-19 positive History of Present Illness: TINA YUAN is a 70 year old male with a history of end-stage kidney disease on hemodialysis, diabetes, hypertension and possible diabetic gastroparesis. He was just discharged from this hospital in August. Evidently EMS was called to the home. It is unclear from the patient the exact history as he is a poor historian. He evidently tested positive for Covid last week in the outpatient setting. Evidently he has been declining in the home. When discharged at the last visit he did have a gastrostomy tube. There is no tube at this point. His inflammatory markers certainly suggest Covid. We will admit the patient and treat for pneumonia due to Covid virus. We will further investigate other med ical issues. Will review old records as well. Since his hemodialysis patient we will consult nephrology. Past Medical History Cardiac Medical History: Reports: Hyperlipidema, Hypertension Denies: Coronary Artery Disease, Myocardial Infarction Pulmonary Medical History: Denies: Asthma, Bronchitis, Chronic Obstructive Pulmonary Disease (COPD), Pneumonia Neurological Medical History: Denies: Seizures Endocrine Medical History: Reports: Diabetes Mellitus Type 2 Renal/ Medical History: Reports: End Stage Renal Disease Musculoskeltal Medical History: Reports: Arthritis Psychiatric Medical History: Denies: Depression Hematology: Denies: Anemia Past Surgical History Past Surgical History: Reports: Cholecystectomy, Orthopedic Surgery - right shoulder Social History Information Source: Patient - Very limited contribution from the patient, [employer] Records Lives with: Family Smoking Status: Former Smoker Electronic Cigarette use?: No Frequency of Alcohol Use: None Hx Recreational Drug Use: No Hx Prescription Drug Abuse: No - Advance Directive Resuscitation Status: Full Code Surrogate healthcare decision maker:: I believe his sister is the designated decision maker Family History Family History: Other - Unable to obtain Parental Family History Reviewed: No Children Family History Reviewed: No Sibling(s) Family History Reviewed.: No Medication/Allergy Home Medications: Carvedilol [Coreg 6.25 mg Tablet] 12.5 mg NG Q12 #60 tablet 08/19/20 Midodrine HCl [Proamatine 5 mg Tablet] 5 mg NG .DIALYSIS PRN #12 tablet 08/19/20 Clonidine HCl [Catapres 0.1 mg Tablet] 0.2 mg PO Q12 09/14/20 Lorazepam [Ativan 0.5 mg Tablet] 0.5 mg PO BIDP PRN 09/14/20 Metoclopramide HCl [Reglan Oral Soln 10 mg/10 ml Udcup] 10 mg NG Q6 09/14/20 Simvastatin [Zocor 40 mg Tablet] 40 mg PO DAILY 09/14/20 Amlodipine Besylate [Norvasc 10 mg Tablet] 10 mg PO DAILY 10/19/20 Atenolol [Tenormin 50 mg Tablet] 50 mg PO DAILY 10/19/20 Benazepril HCl [Lotensin] 40 mg PO DAILY 10/19/20 Docusate Sodium [Colace Udc 100 mg/10 ml Oral Soln] 50 mg NG Q48H 10/19/20 Glipizide [Glocotrol 5 Mg Tablet] 5 mg PO BID 10/19/20 Insulin Glargine,Hum.rec.anlog [Lantus Insulin 100 Unit/mL Insulin Pen] 7 unit SUBCUT DAILY 10/19/20 Olanzapine [Zyprexa 2.5 Mg Tablet] 2.5 mg PO DAILY 10/19/20 Allergies/Adverse Reactions: No Known Allergies Allergy (Verified 09/04/20 12:54) Review of Systems ROS unobtainable: Due to mental status - Patient did not actively participate in the review of systems Physical Exam Vital Signs: Temp Pulse Resp BP Pulse Ox 99.5 F 96 24 H 120/65 96 10/19/20 08:36 10/19/20 01:45 10/19/20 09:01 10/19/20 09:00 10/19/20 09:01 Intake & Output 10/18/20 10/19/20 10/20/20 06:59 06:59 06:59 Weight 44.568 kg General appearance: PRESENT: no acute distress, thin. ABSENT: cooperative - Never opened his eyes during the encounter. Only answered questions with yes and no answers. Head exam: PRESENT: atraumatic, normocephalic Mouth exam: PRESENT: dry mucosa - Tongue appeared dry when patient open his mouth to talk. He was otherwise not very cooperative during the exam., tongue midline Respiratory exam: PRESENT: clear to auscultation deven, symmetrical, unlabored. ABSENT: rales, rhonchi, tachypnea, wheezes Cardiovascular exam: PRESENT: RRR, +S1, +S2. ABSENT: bradycardia, diastolic murmur, irregular rhythm, systolic murmur, tachycardia GI/Abdominal exam: PRESENT: normal bowel sounds, soft, other - No evidence of the PEG tube that he was discharged with in August. ABSENT: distended, tenderness Rectal exam: PRESENT: deferred Gentrourinary exam: ABSENT: indwelling catheter Extremities exam: ABSENT: pedal edema Musculoskeletal exam: PRESENT: normal inspection, other - Decreased muscle mass. ABSENT: deformity Neurological exam: PRESENT: awake, oriented to person, other - Difficult to assess due to poor participation in the exam.. ABSENT: alert Psychiatric exam: PRESENT: unusual affect - Affect actually seemed to reflect anger. ABSENT: agitated, anxious Focused psych exam: PRESENT: other - Unable to assess Results Laboratory Results: 10/19/20 01:55 10/19/20 01:55 10/19/20 10/19/20 10/19/20 01:55 01:55 01:55 WBC 9.2 RBC 3.19 L Hgb 8.8 L Hct 26.5 L MCV 83 D MCH 27.5 MCHC 33.0 RDW 17.0 H Plt Count 264 Seg Neutrophils % 75.1 VBG pH 7.43 H VBG pCO2 42.4 VBG HCO3 27.4 VBG Base Excess 2.8 Sodium 140.3 Potassium 3.5 L Chloride 102 Carbon Dioxide 29 Anion Gap 9 BUN 20 Creatinine 2.87 H Est GFR ( Amer) 26 L Glucose 176 H Lactic Acid Calcium 8.0 L Ferritin Total Bilirubin 0.5 AST 56 Alkaline Phosphatase 165 H C-Reactive Protein Total Protein 5.9 L Albumin 2.7 L Urine Color Urine Appearance Urine pH Ur Specific [place] Urine Protein Urine Glucose (UA) Urine Ketones Urine Blood Urine RBC (Auto) 10/19/20 10/19/20 10/19/20 01:55 01:55 02:25 WBC RBC Hgb Hct MCV MCH MCHC RDW Plt Count Seg Neutrophils % VBG pH VBG pCO2 VBG HCO3 VBG Base Excess Sodium Potassium Chloride Carbon Dioxide Anion Gap BUN Creatinine Est GFR ( Amer) Glucose Lactic Acid 1.9 Calcium Ferritin 965.00 H Total Bilirubin AST Alkaline Phosphatase C-Reactive Protein 65.4 H Total Protein Albumin Urine Color YELLOW Urine Appearance CLEAR Urine pH 8.0 Ur Specific [place] 1.009 Urine Protein 100 H Urine Glucose (UA) >=500 H Urine Ketones NEGATIVE Urine Blood NEGATIVE Urine RBC (Auto) 0 10/19/20 10/19/20 05:07 08:29 WBC RBC Hgb Hct MCV MCH MCHC RDW Plt Count Seg Neutrophils % VBG pH VBG pCO2 VBG HCO3 VBG Base Excess Sodium Potassium Chloride Carbon Dioxide Anion Gap BUN Creatinine Est GFR ( Amer) Glucose Lactic Acid 1.6 0.9 Calcium Ferritin Total Bilirubin AST Alkaline Phosphatase C-Reactive Protein Total Protein Albumin Urine Color Urine Appearance Urine pH Ur Specific [place] Urine Protein Urine Glucose (UA) Urine Ketones Urine Blood Urine RBC (Auto) 10/19/20 10/19/20 01:55 01:55 Creatine Kinase 25 L Troponin I 0.019 Impressions: Chest X-Ray 10/19/20 02:11 IMPRESSION: No acute cardiopulmonary process copyright 2011 [employer]- All Rights Reserved Assessment and Plan - Diagnosis (1) COVID-19 virus infection Is this a current diagnosis for this admission?: Yes (2) ESRD (end stage renal disease) on dialysis Is this a current diagnosis for this admission?: Yes (3) Anemia in chronic kidney disease (CKD) Qualifiers: Chronic kidney disease stage: on chronic dialysis Qualified Code(s): N18.6 - End stage renal disease; D63.1 - Anemia in chronic kidney disease; Z99.2 - Dependence on renal dialysis Is this a current diagnosis for this admission?: Yes (4) Essential hypertension Is this a current diagnosis for this admission?: Yes (5) Hyperglycemia due to type 2 diabetes mellitus 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 We will utilize typical supplements. Already received first dose of ivermectin. For therapeutic anticoagulation I will use Eliquis 2.5 mg twice daily to account for the patient's kidney failure on hemodialysis. Lovenox is contraindicated and heparin infusion would not be clinically appropriate. Hypertension-resume antihypertensive agents End-stage kidney disease on hemodialysis-nephrology is aware. Hemodialysis on Monday, Monday and Thierry while inpatient Diabetes mellitus-resume Lantus as well as oral medications. Accu-Cheks and sliding scale. Anemia of chronic kidney disease-monitor hemoglobin hematocrit. - Time Time Spent with patient: 35 or more minutes Medications reviewed and adjusted accordingly: Yes Anticipated Discharge Disposition: Unknown Anticipated Discharge Timeframe: Unknown - Inpatient Certification Based on my medical assessment, after consideration of the patient's comorbidities, presenting symptoms, or acuity I expect that the services needed warrant INPATIENT care.: Yes I certify that my determination is in accordance with my understanding of Medicare's requirements for reasonable and necessary INPATIENT services [42 CFR 412.3e].: Yes Medical Necessity: Significant Comorbidiites Make Outpatient Treatment Too Risky, Other - Hemodialysis Post Hospital Care: D/C or Transfer Summary
[2020-10-19] MEDS ORDERED: ACETAMINOPHEN 325 MG TABLET PO PRN (12:53)
[2020-10-19] MEDS ORDERED: PROMETHAZINE HCL INJ 25 MG/1 ML VIAL IV PRN (12:53)
[2020-10-19] MEDS ORDERED: LORAZEPAM 0.5 MG TABLET PO PRN (13:07)
[2020-10-19] MEDS ORDERED: DEXTROSE 40% GEL 15 GM TUBE PO PRN ×2 (13:19)
[2020-10-19] MEDS ORDERED: DEXTROSE 50%-WATER 25 GM/50 ML DISP.SYRIN IV PRN ×2 (13:19)
[2020-10-19] MEDS ORDERED: GLUCAGON,HUMAN RECOMB 1 MG INJ IM PRN (13:19)
[2020-10-19] MEDS ORDERED: HEPARIN SOD (PORCINE) 5,000 UNIT/ML 1 ML VIAL SUBCUT SCH (14:00)
[2020-10-19] MEDS ORDERED: IVERMECTIN 3 MG TABLET PO ONE (15:00)
[2020-10-19] MEDS: INSULIN LISPRO 100 UNIT/ML 3 ML VIAL SUBCUT SCH ×2 (16:20→23:30)
[2020-10-19] MEDS: METOCLOPRAMIDE HCL 10 MG TABLET PO SCH ×2 (16:23→23:15)
[2020-10-19] MEDS: DOCUSATE SODIUM 100 MG CAPSULE PO SCH (18:30)
[2020-10-19] MEDS: ASCORBIC ACID 500 MG TABLET PO SCH (18:38)
[2020-10-19] MEDS ORDERED: FAMOTIDINE 20 MG TABLET PO SCH (22:00)
[2020-10-19] MEDS ORDERED: MIDODRINE HCL 5 MG TABLET NG PRN (22:09)
[2020-10-19] MEDS ORDERED: HYDRALAZINE HCL INJ/PF 20 MG/1 ML SDV IV PRN (22:14)
[2020-10-19] MEDS: FAMOTIDINE 20 MG TABLET PO SCH (23:15)
[2020-10-19] MEDS: CARVEDILOL 12.5 MG TABLET PO SCH (23:17)
[2020-10-19] MEDS: CLONIDINE HCL 0.1 MG TABLET PO SCH (23:18)
[2020-10-20] MEDS: MELATONIN 5 MG TABLET PO SCH ×2 (01:19→22:41)
[2020-10-20 05:22] LABS: HEMATOCRIT 22.6 % (37.9-51.0); MEAN CORPUSCULAR HEMOGLOBIN 27.5 pg (27.0-33.4); MEAN CORPUSCULAR HGB CONC 32.9 g/dL (32.0-36.0); MEAN CORPUSCULAR VOLUME 84 fl (80-97); PLATELET COUNT 206 10^3/uL (150-450); RED BLOOD COUNT 2.69 10^6/uL (4.35-5.55); RED CELL DISTRIBUTION WIDTH 17.5 % (11.5-14.0); WHITE BLOOD COUNT 8.6 10^3/uL (4.0-10.5)
[2020-10-20 05:29] LABS: HEMOGLOBIN 7.4 g/dL (13.5-17.0)
[2020-10-20 05:56] LABS: ALBUMIN 2.4 g/dL (3.5-5.0); ANION GAP 9 (5-19); BLOOD UREA NITROGEN 39 mg/dL (7-20); CALCIUM 7.7 mg/dL (8.4-10.2); CARBON DIOXIDE 23 mmol/L (22-30); CHLORIDE 99 mmol/L (98-107); GLUCOSE 148 mg/dL (75-110); PHOSPHORUS 5.1 mg/dL (2.5-4.5)
[2020-10-20 06:15] LABS: C-REACTIVE PROTEIN 187.7 mg/L (<10.0)
[2020-10-20] MEDS: INSULIN LISPRO 100 UNIT/ML 3 ML VIAL SUBCUT SCH ×4 (08:46→22:29)
[2020-10-20] MEDS: METOCLOPRAMIDE HCL 10 MG TABLET PO SCH ×4 (08:53→22:30)
[2020-10-20] MEDS: AMLODIPINE BESYLATE 10 MG TABLET PO SCH (11:51)
[2020-10-20] MEDS: ZINC SULFATE 220 MG CAPSULE PO SCH (11:51)
[2020-10-20] MEDS: GLIPIZIDE 5 MG TABLET PO SCH ×2 (11:52→17:49)
[2020-10-20] MEDS: CHOLECALCIFEROL (D3) 1,000 UNIT (25 MCG) TABLET PO SCH (11:52)
[2020-10-20] MEDS: AZITHROMYCIN 250 MG TABLET PO SCH (11:52)
[2020-10-20] MEDS: CARVEDILOL 12.5 MG TABLET PO SCH ×2 (11:52→22:42)
[2020-10-20] MEDS: LISINOPRIL 10 MG TABLET PO SCH (11:52)
[2020-10-20] MEDS: ASCORBIC ACID 500 MG TABLET PO SCH ×2 (11:52→17:49)
[2020-10-20] MEDS: OLANZAPINE 2.5 MG TABLET PO SCH (11:53)
[2020-10-20] MEDS: DOCUSATE SODIUM 100 MG CAPSULE PO SCH ×2 (11:53→17:49)
[2020-10-20] MEDS: DEXAMETHASONE SOD PHOS INJ 10 MG/1 ML VIAL IV SCH (11:53)
[2020-10-20] MEDS: CLONIDINE HCL 0.1 MG TABLET PO SCH ×2 (11:53→22:41)
[2020-10-20] MEDS: APIXABAN 2.5 MG TABLET PO SCH ×2 (11:53→17:49)
[2020-10-20] MEDS ORDERED: INSULIN GLARGINE,HUM.REC.ANLOG 1,000 UNIT/10 ML VIAL (PYX) SUBCUT ONE ×4 (12:45→19:00)
[2020-10-20] MEDS: INSULIN GLARGINE,HUM.REC.ANLOG 1,000 UNIT/10 ML VIAL SUBCUT SCH (14:50)
--- NOTE | 2020-10-20 16:28 | PDOC CONSULTATION ---
Consultation Consult Date: 10/20/20 Provider Consulted: Maryann GAYLE Consult reason:: ESRD for HD History of Present Illness Admission Date/PCP: 10/19/20 10:48 MANSOOR GONSALES PA-C History of Present Illness: TINA YUAN is a 70 year old male w3ith past medical history of ESRD on dialysis in the background of diabetes mellitus/hypertension was admitted to the hospital with history of weakness, intermittent nausea and vomiting and questionable history of fever. He was diagnosed to be Covid positive as an outpatient around 06 October and was rather asymptomatic and continued to get q uarantined hemodialysis at [facility] and last dialysis was on this Monday. Apparently his sister at home with who is his main caregiver is also now turned out to be Covid positive and they are having some psychosocial issues as well. Patient apparently called EMS from what I can gather by talking to the nurses at [facility] because of the earlier symptoms and got himself to the ER where he was found to be having some fever with intermittent nausea. Given his positive serology and some symptoms he was therefore admitted for further evaluations and management while things are being sorted out. Chest x- ray was negative for any evidences of infectious pneumonia. Patient was admitted in [facility] and discharged with a gastrostomy tube. Apparently he is eating but there is a questionable history of whether the patient could be having intermittent aspiration. He has not been following up with any primary care to the best of my knowledge and therefore no follow-up studies or barium swallow evaluations has been done to make sure that he is not at high risk for aspiration. Today when I see him he looks quite alert awake and oriented but is not very forthcoming with his answers. He is not able to tell me the time of the day or the day/month. He denies any history of fever or chills. Labs and medications were reviewed. He denies any abdominal pains or GI bleeds. Discussions were done with the treating nurse. Past Medical History Cardiac Medical History: Reports: Hyperlipidemia, Hypertension-primary Denies: Coronary Artery Disease, Myocardial Infarction Pulmonary Medical History: Denies: Asthma, Bronchitis, Chronic Obstructive Pulmonary Disease (COPD), Pneumonia Neurological Medical History: Denies: Seizures Endocrine Medical History: Reports: Diabetes Mellitus Type 2 Complications of Diabetes: Reports: Nephropathy Renal/ Medical History: Reports: End Stage Renal Disease, Metabolic Acidosis, Secondary Hyperparathyroidism Musculoskeltal Medical History: Reports: Arthritis Psychiatric Medical History: Denies: Depression Hematology Medical History: Reports Anemia of Chronic Kidney Disease Past Surgical History Past Surgical History: Reports: Cholecystectomy, Orthopedic Surgery - right shoulder Social History Lives with: Family Smoking Status: Never Smoker Electronic Cigarette use?: No Frequency of Alcohol Use: None Hx Recreational Drug Use: No Hx Prescription Drug Abuse: No - Advance Directive Resuscitation Status: Full Code Family History Parental Family History Reviewed: No - Because of mental status Children Family History Reviewed: No Sibling(s) Family History Reviewed.: No Medication/Allergy Home Medications: Carvedilol [Coreg 6.25 mg Tablet] 12.5 mg NG Q12 #60 tablet 08/19/20 Midodrine HCl [Proamatine 5 mg Tablet] 5 mg NG .DIALYSIS PRN #12 tablet 08/19/20 Clonidine HCl [Catapres 0.1 mg Tablet] 0.2 mg PO Q12 09/14/20 Lorazepam [Ativan 0.5 mg Tablet] 0.5 mg PO BIDP PRN 09/14/20 Metoclopramide HCl [Reglan Oral Soln 10 mg/10 ml Udcup] 10 mg NG Q6 09/14/20 Simvastatin [Zocor 40 mg Tablet] 40 mg PO DAILY 09/14/20 Amlodipine Besylate [Norvasc 10 mg Tablet] 10 mg PO DAILY 10/19/20 Atenolol [Tenormin 50 mg Tablet] 50 mg PO DAILY 10/19/20 Benazepril HCl [Lotensin] 40 mg PO DAILY 10/19/20 Docusate Sodium [Colace Udc 100 mg/10 ml Oral Soln] 50 mg NG Q48H 10/19/20 Glipizide [Glocotrol 5 Mg Tablet] 5 mg PO BID 10/19/20 Insulin Glargine,Hum.rec.anlog [Lantus Insulin 100 Unit/mL Insulin Pen] 7 unit SUBCUT DAILY 10/19/20 Olanzapine [Zyprexa 2.5 Mg Tablet] 2.5 mg PO DAILY 10/19/20 Allergies/Adverse Reactions: No Known Allergies Allergy (Verified 09/04/20 12:54) Review of Systems ROS unobtainable: Due to mental status Constitutional: PRESENT: anorexia, fatigue, weakness. ABSENT: chills, fever(s), headache(s), night sweats Nose, Mouth, and Throat: ABSENT: mouth pain, sore throat Cardiovascular: ABSENT: chest pain, dyspnea on exertion, edema, orthropnea, palpitations Respiratory: ABSENT: dyspnea, hemoptysis Gastrointestinal: PRESENT: nausea, vomiting. ABSENT: abdominal pain, coffee ground emesis, diarrhea, dysphagia, heartburn, hematemesis Genitourinary: ABSENT: difficulty urinating, dysuria, hematuria Musculoskeletal: ABSENT: deformity, joint swelling Neurological: ABSENT: abnormal movements, abnormal speech, frequent falls Hematologic/Lymphatic: ABSENT: easy bruising, lymphadenopathy Physical Exam Vital Signs: Temp Pulse Resp BP Pulse Ox 98.0 F 75 18 179/87 H 100 10/20/20 12:03 10/20/20 12:03 10/20/20 08:27 10/20/20 12:03 10/20/20 12:03 Intake & Output 10/19/20 10/20/20 10/21/20 06:59 06:59 06:59 Intake Total 470 Output Total 800 Balance -330 Weight 44.568 kg 47.4 kg General appearance: PRESENT: no acute distress, disheveled Eye exam: PRESENT: EOMI, PERRLA. ABSENT: scleral icterus Ear exam: PRESENT: normal external ear exam Mouth exam: PRESENT: neck supple. ABSENT: moist Neck exam: ABSENT: lymphadenopathy, meningismus, tenderness, thyromegaly, tracheal deviation Respiratory exam: PRESENT: clear to auscultation deven, decreased breath sounds. ABSENT: crackles Cardiovascular exam: PRESENT: +S1, +S2 GI/Abdominal exam: PRESENT: normal bowel sounds, soft. ABSENT: organomegaly, tenderness Extremities exam: ABSENT: pedal edema Neurological exam: PRESENT: alert, awake, oriented to person. ABSENT: oriented to place, oriented to time Psychiatric exam: PRESENT: anxious Skin exam: ABSENT: erythema, mottled, rash Results Laboratory Results: 10/20/20 04:50 10/20/20 04:50 10/20/20 10/20/20 04:50 04:50 WBC 8.6 RBC 2.69 L Hgb 7.4 L Hct 22.6 L MCV 84 MCH 27.5 MCHC 32.9 RDW 17.5 H Plt Count 206 Sodium 130.9 L Potassium 4.0 Chloride 99 Carbon Dioxide 23 Anion Gap 9 BUN 39 H Creatinine 4.12 H Est GFR ( Amer) 17 L Glucose 148 H Calcium 7.7 L Phosphorus 5.1 H Ferritin 953.00 H C-Reactive Protein 187.7 H Albumin 2.4 L 10/19/20 10/19/20 01:55 01:55 Creatine Kinase 25 L Troponin I 0.019 Impressions: Chest X-Ray 10/19/20 02:11 IMPRESSION: No acute cardiopulmonary process copyright 2011 [employer]- All Rights Reserved Assessment & Plan - Diagnosis (1) COVID-19 virus infection Is this a current diagnosis for this admission?: Yes Plan: Patient admitted with positive Covid serology and certain symptoms. He is now on antibiotics along with dexamethasone. Managed by hospitalist. (2) ESRD (end stage renal disease) on dialysis Is this a current diagnosis for this admission?: Yes Plan: No acute indications for renal replacements today. Plan for dialysis for tomorrow and orders been placed. (3) Anemia in chronic kidney disease (CKD) Qualifiers: Chronic kidney disease stage: on chronic dialysis Qualified Code(s): N18.6 - End stage renal disease; D63.1 - Anemia in chronic kidney disease; Z99.2 - Dependence on renal dialysis Is this a current diagnosis for this admission?: Yes Plan: We will check iron studies in the morning and see if he needs to get any IV iron during dialysis. Otherwise we will start him on Retacrit. (4) Essential hypertension Is this a current diagnosis for this admission?: Yes Plan: Labile. Monitor. (5) Type 2 diabetes mellitus Qualifiers: Plan: As per hospitalist. (6) Dementia Plan: Mild-moderate. Monitor. (7) Dysphagia Qualifiers: Dysphagia type: oropharyngeal phase Qualified Code(s): R13.12 - Dysphagia, oropharyngeal phase Plan: During his admission in August he had dysphagia and he was discharged with a gastrostomy tube. He still I believe is possible for risk for aspiration. I would therefore recommend a barium swallow evaluation to reassess risk of aspiration.
--- NOTE | 2020-10-20 18:35 | PDOC PROGRESS REPORT ---
Subjective Date:: 10/20/20 Subjective:: Patient states that he feels well. Denies shortness of breath. Reason For Visit: COVID-19 VIRUS INFECTION, CHRONIC RENAL FAILURE, Physical Exam Vital Signs: Temp Pulse Resp BP Pulse Ox 97.9 F 70 18 122/72 100 10/20/20 16:39 10/20/20 16:39 10/20/20 16:39 10/20/20 16:39 10/20/20 16:39 Intake & Output 10/19/20 10/20/20 10/21/20 06:59 06:59 06:59 Intake Total 470 Output Total 800 Balance -330 Weight 44.568 kg 47.4 kg General appearance: PRESENT: no acute distress, cooperative Neck exam: ABSENT: JVD Respiratory exam: PRESENT: clear to auscultation deven, unlabored Cardiovascular exam: PRESENT: +S1, +S2. ABSENT: tachycardia GI/Abdominal exam: PRESENT: soft. ABSENT: tenderness Neurological exam: PRESENT: alert, awake Psychiatric exam: ABSENT: agitated, anxious Results Laboratory Results: 10/20/20 04:50 10/20/20 04:50 10/20/20 10/20/20 04:50 04:50 WBC 8.6 RBC 2.69 L Hgb 7.4 L Hct 22.6 L MCV 84 MCH 27.5 MCHC 32.9 RDW 17.5 H Plt Count 206 Sodium 130.9 L Potassium 4.0 Chloride 99 Carbon Dioxide 23 Anion Gap 9 BUN 39 H Creatinine 4.12 H Est GFR ( Amer) 17 L Glucose 148 H Calcium 7.7 L Phosphorus 5.1 H Ferritin 953.00 H C-Reactive Protein 187.7 H Albumin 2.4 L 10/19/20 10/19/20 01:55 01:55 Creatine Kinase 25 L Troponin I 0.019 Impressions: Chest X-Ray 10/19/20 02:11 IMPRESSION: No acute cardiopulmonary process copyright 2011 [employer]- All Rights Reserved Assessment and Plan - Diagnosis (1) COVID-19 virus infection Is this a current diagnosis for this admission?: Yes (2) Anemia in chronic kidney disease (CKD) Qualifiers: Chronic kidney disease stage: on chronic dialysis Qualified Code(s): N18.6 - End stage renal disease; D63.1 - Anemia in chronic kidney disease; Z99.2 - Dependence on renal dialysis Is this a current diagnosis for this admission?: Yes (3) ESRD (end stage renal disease) on dialysis Is this a current diagnosis for this admission?: Yes (4) Type 2 diabetes mellitus Qualifiers: - Plan Summary Summary: 10/19/2020 Covid infection-the patient currently is on room air. We will utilize typical supplements. Already received first dose of ivermectin. For therapeutic anticoagulation I will use Eliquis 2.5 mg twice daily to account for the patient's kidney failure on hemodialysis. Lovenox is contraindicated and heparin infusion would not be clinically appropriate. Hypertension-resume antihypertensive agents End-stage kidney disease on hemodialysis-nephrology is aware. Hemodialysis on Monday, Monday and Monday while inpatient Diabetes mellitus-resume Lantus as well as oral medications. Accu-Cheks and sliding scale. Anemia of chronic kidney disease-monitor hemoglobin hematocrit. 10/20/2020 Continue patient's current medications Hemoglobin is 7.4. We will check again in the morning. ESRD-plan for dialysis tomorrow Regarding his COVID-19 infection, he is currently being high 90s to 100% on room air. He is status post ivermectin. Currently on Decadron. I believe he could probably be discharged tomorrow morning after dialysis. technical planner working on placement. He will need a PT evaluation. - Time Time Spent with patient: Less than 15 minutes Anticipated Discharge Disposition: vs SNF Anticipated Discharge Timeframe: when bed available
[2020-10-20] MEDS ORDERED: SIMVASTATIN 40 MG TABLET PO SCH (22:00)
[2020-10-20] MEDS: FAMOTIDINE 20 MG TABLET PO SCH (22:30)
[2020-10-21] MEDS ORDERED: HEPARIN SOD (PORCINE) 1,000 UNIT/ML 10 ML VIAL IV PRN (05:00)
[2020-10-21 05:06] LABS: ABSOLUTE RETICS # 0.038 10^6/uL (0.028-0.122); HEMATOCRIT 23.5 % (37.9-51.0); MEAN CORPUSCULAR HEMOGLOBIN 27.4 pg (27.0-33.4); MEAN CORPUSCULAR HGB CONC 33.1 g/dL (32.0-36.0); MEAN CORPUSCULAR VOLUME 83 fl (80-97); PLATELET COUNT 234 10^3/uL (150-450); RED BLOOD COUNT 2.84 10^6/uL (4.35-5.55); RED CELL DISTRIBUTION WIDTH 17.2 % (11.5-14.0); RETICULOCYTE COUNT (AUTO) 1.35 % (0.66-2.85); WHITE BLOOD COUNT 6.1 10^3/uL (4.0-10.5)
[2020-10-21 05:21] LABS: HEMOGLOBIN 7.8 g/dL (13.5-17.0)
[2020-10-21 05:24] LABS: ANION GAP 9 (5-19); BLOOD UREA NITROGEN 51 mg/dL (7-20); CALCIUM 8.1 mg/dL (8.4-10.2); CARBON DIOXIDE 21 mmol/L (22-30); CHLORIDE 99 mmol/L (98-107); GLUCOSE 194 mg/dL (75-110); IRON(TIBC) 45.9 ug/dL (49-181)
[2020-10-21] MEDS: INSULIN LISPRO 100 UNIT/ML 3 ML VIAL SUBCUT SCH ×2 (07:34→11:24)
[2020-10-21] MEDS ORDERED: EPOETIN ALFA-EPBX 2,000 UNIT, EPOETIN ALFA-EPBX 3,000 UNIT, EPOETIN ALFA-EPBX 20,000 UN... IV PRN ×4 (08:00)
[2020-10-21] MEDS: METOCLOPRAMIDE HCL 10 MG TABLET PO SCH ×2 (08:02→11:24)
[2020-10-21] MEDS: CHOLECALCIFEROL (D3) 1,000 UNIT (25 MCG) TABLET PO SCH (09:29)
[2020-10-21] MEDS: GLIPIZIDE 5 MG TABLET PO SCH (09:29)
[2020-10-21] MEDS: AMLODIPINE BESYLATE 10 MG TABLET PO SCH (09:29)
[2020-10-21] MEDS: ASCORBIC ACID 500 MG TABLET PO SCH (09:29)
[2020-10-21] MEDS: LISINOPRIL 10 MG TABLET PO SCH (09:29)
[2020-10-21] MEDS: DOCUSATE SODIUM 100 MG CAPSULE PO SCH (09:29)
[2020-10-21] MEDS: ZINC SULFATE 220 MG CAPSULE PO SCH (09:29)
[2020-10-21] MEDS: CARVEDILOL 12.5 MG TABLET PO SCH (09:29)
[2020-10-21] MEDS: AZITHROMYCIN 250 MG TABLET PO SCH (09:29)
[2020-10-21] MEDS: DEXAMETHASONE SOD PHOS INJ 10 MG/1 ML VIAL IV SCH (09:30)
[2020-10-21] MEDS: APIXABAN 2.5 MG TABLET PO SCH (09:30)
[2020-10-21] MEDS: CLONIDINE HCL 0.1 MG TABLET PO SCH (09:30)
[2020-10-21] MEDS: INSULIN GLARGINE,HUM.REC.ANLOG 1,000 UNIT/10 ML VIAL SUBCUT SCH (09:33)
[2020-10-21] MEDS: OLANZAPINE 2.5 MG TABLET PO SCH (09:34)
--- NOTE | 2020-10-21 12:50 | PDOC PROGRESS REPORT ---
Subjective Date:: 10/21/20 Reason For Visit: Patient is in isolation from the Covid and was seen today on dialysis. He is undergoing dialysis without any issues. Vital signs are stable. Labs and medications were reviewed. Dialysis orders were reviewed with the treating dialysis nurse. Physical Exam Vital Signs: Temp Pulse Resp BP Pulse Ox 97.5 F 65 18 125/74 99 10/21/20 08:50 10/21/20 08:50 10/21/20 08:50 10/21/20 08:50 10/21/20 08:50 Intake & Output 10/20/20 10/21/20 10/22/20 06:59 06:59 06:59 Intake Total 690 Output Total 900 Balance -210 Weight 47.8 kg General appearance: PRESENT: no acute distress Respiratory exam: PRESENT: clear to auscultation deven, decreased breath sounds. ABSENT: crackles Cardiovascular exam: PRESENT: +S1, +S2 GI/Abdominal exam: PRESENT: normal bowel sounds, soft. ABSENT: organomegaly, tenderness Extremities exam: ABSENT: pedal edema Neurological exam: PRESENT: alert, awake, oriented to person Results Laboratory Results: 10/21/20 04:06 10/21/20 04:06 10/21/20 10/21/20 04:06 04:06 WBC 6.1 RBC 2.84 L Hgb 7.8 L Hct 23.5 L MCV 83 MCH 27.4 MCHC 33.1 RDW 17.2 H Plt Count 234 Retic Count (auto) 1.35 Sodium 129.3 L Potassium 5.0 D Chloride 99 Carbon Dioxide 21 L Anion Gap 9 BUN 51 H Creatinine 5.35 H Est GFR ( Amer) 13 L Glucose 194 H Calcium 8.1 L Iron 45.9 L TIBC 171 L % Saturation 27 Ferritin 972.00 H Vitamin B12 898.0 Folate 5.90 10/19/20 10/19/20 01:55 01:55 Creatine Kinase 25 L Troponin I 0.019 Impressions: Chest X-Ray 10/19/20 02:11 IMPRESSION: No acute cardiopulmonary process copyright 2011 [employer]- All Rights Reserved Assessment & Plan - Diagnosis (1) COVID-19 virus infection Is this a current diagnosis for this admission?: Yes Plan: Patient admitted with positive Covid serology and certain symptoms. He is now on antibiotics along with dexamethasone. status post ivermectin. Managed by hospitalist. (2) ESRD (end stage renal disease) on dialysis Is this a current diagnosis for this admission?: Yes Plan: Patient currently being seen on dialysis which is being supervised. Vital signs are stable. Plan to remove approximately 2 L as tolerated. Dialysis orders were reviewed with the treating dialysis nurse. From renal standpoint is stable. (3) Anemia in chronic kidney disease (CKD) Qualifiers: Chronic kidney disease stage: on chronic dialysis Qualified Code(s): N18.6 - End stage renal disease; D63.1 - Anemia in chronic kidney disease; Z99.2 - Dependence on renal dialysis Is this a current diagnosis for this admission?: Yes Plan: Adjust erythropoietin. (4) Essential hypertension Is this a current diagnosis for this admission?: Yes Plan: Labile. Monitor. (5) Type 2 diabetes mellitus Qualifiers: Plan: As per hospitalist. (6) Dementia Plan: Mild-moderate. Monitor. (7) Dysphagia Qualifiers: Dysphagia type: oropharyngeal phase Qualified Code(s): R13.12 - Dysphagia, oropharyngeal phase Plan: During his admission in August he had dysphagia and he was discharged with a gastrostomy tube. He still I believe is possible for risk for aspiration. I would therefore recommend a barium swallow evaluation to reassess risk of aspiration.
--- NOTE | 2020-10-21 13:03 | PDOC DISCHARGE SUMMARY ---
Impression - Admit/DC Date/PCP Admission Date/Primary Care Provider: 10/19/20 10:48 MANSOOR GONSALES PA-C Discharge Date: 10/21/20 - Discharge Diagnosis (1) COVID-19 virus infection Is this a current diagnosis for this admission?: Yes (2) Anemia in chronic kidney disease (CKD) Is this a current diagnosis for this admission?: Yes (3) ESRD (end stage renal disease) on dialysis Is this a current diagnosis for this admission?: Yes - Additional Information Resuscitation Status: Full Code Discharge Diet: As Tolerated Discharge Activity: Activity As Tolerated Referrals: MANSOOR GONSALES PA-C [Primary Care Provider] - 11/04/20 9:00 am Prescriptions: Apixaban [Eliquis 2.5 mg Tablet] 2.5 mg PO BID #60 tablet Ascorbic Acid [Vitamin C 500 mg Tablet] 500 mg PO BID #40 tablet Home Medications: Carvedilol [Coreg 6.25 mg Tablet] 12.5 mg NG Q12 #60 tablet 08/19/20 Midodrine HCl [Proamatine 5 mg Tablet] 5 mg NG .DIALYSIS PRN #12 tablet 08/19/20 Clonidine HCl [Catapres 0.1 mg Tablet] 0.2 mg PO Q12 09/14/20 Lorazepam [Ativan 0.5 mg Tablet] 0.5 mg PO BIDP PRN 09/14/20 Metoclopramide HCl [Reglan Oral Soln 10 mg/10 ml Udcup] 10 mg NG Q6 09/14/20 Simvastatin [Zocor 40 mg Tablet] 40 mg PO DAILY 09/14/20 Amlodipine Besylate [Norvasc 10 mg Tablet] 10 mg PO DAILY 10/19/20 Atenolol [Tenormin 50 mg Tablet] 50 mg PO DAILY 10/19/20 Benazepril HCl [Lotensin] 40 mg PO DAILY 10/19/20 Docusate Sodium [Colace Udc 100 mg/10 ml Oral Soln] 50 mg NG Q48H 10/19/20 Glipizide [Glucotrol 5 mg Tablet] 5 mg PO BID 10/19/20 Insulin Glargine,Hum.rec.anlog [Lantus Insulin 100 Unit/mL Insulin Pen] 7 unit SUBCUT DAILY 10/19/20 Olanzapine [Zyprexa 2.5 mg Tablet] 2.5 mg PO DAILY 10/19/20 Apixaban [Eliquis 2.5 mg Tablet] 2.5 mg PO BID #60 tablet 10/21/20 Ascorbic Acid [Vitamin C 500 mg Tablet] 500 mg PO BID #40 tablet 10/21/20 History of Present Illiness History of Present Illness: According to admitting provider: TINA YUAN is a 70 year old male with a history of end-stage kidney disease on hemodialysis, diabetes, hypertension and possible diabetic gastroparesis. He was just discharged from this hospital in August. Evidently EMS was called to the home. It is unclear from the patient the exact history as he is a poor historian. He evidently tested positive for Covid last week in the outpatient setting. Evidently he has been declining in the home. When discharged at the last visit he did have a gastrostomy tube. There is no tube at this point. His inflammatory markers certainly suggest Covid. We will admit the patient and treat for pneumonia due to Covid virus. We will further investigate other medical issues. Will review old records as well. Since his hemodialysis patient we will consult nephrology. Hospital Course Hospital Course: 10/19/2020 Covid infection-the patient currently is on room air. We will utilize typical supplements. Already received first dose of ivermectin. For therapeutic anticoagulation I will use Eliquis 2.5 mg twice daily to account for the patient's kidney failure on hemodialysis. Lovenox is contraindicated and heparin infusion would not be clinically appropriate. Hypertension-resume antihypertensive agents End-stage kidney disease on hemodialysis-nephrology is aware. Hemodialysis on Monday, Monday and Monday while inpatient Diabetes mellitus-resume Lantus as well as oral medications. Accu-Cheks and sliding scale. Anemia of chronic kidney disease-monitor hemoglobin hematocrit. 10/20/2020 Continue patient's current medications Hemoglobin is 7.4. We will check again in the morning. ESRD-plan for dialysis tomorrow Regarding his COVID-19 infection, he is currently being high 90s to 100% on room air. He is status post ivermectin. Currently on Decadron. I believe he could probably be discharged tomorrow morning after dialysis. traffic and transport planner working on placement. He will need a PT evaluation. 10/21/2020 Hemoglobin is stable. Iron studies showed normal iron saturation, normal B12 and folic acid levels and the studies are consistent with anemia of chronic kidney disease. Patient will continue to receive dialysis and has been dialyzed today. He will follow-up with nephrology regarding continue erythropoietin injections. Patient is a high risk for venous thromboembolism given his COVID-19 infection and very high D-dimer in the setting of chronic kidney disease and as such I have discharged him with 1 month of Eliquis 2.5 mg twice a day. Have discussed with his daughter would like patient to come back home. She has requested a shower chair which order has been placed for. She states they have a walker at home. His oxygenation has been great throughout his hospitalization ranging from 95 to 100% on room air. For the most part today it has been closer to 100% on room air. Physical Exam Vital Signs: Temp Pulse Resp BP Pulse Ox 97.5 F 65 18 125/74 99 10/21/20 08:50 10/21/20 08:50 10/21/20 08:50 10/21/20 08:50 10/21/20 08:50 Intake & Output 10/20/20 10/21/20 10/22/20 06:59 06:59 06:59 Intake Total 690 Output Total 900 Balance -210 Weight 47.8 kg General appearance: PRESENT: no acute distress, cooperative Respiratory exam: PRESENT: clear to auscultation deven, unlabored Cardiovascular exam: PRESENT: +S1, +S2 Extremities exam: ABSENT: calf tenderness, pedal edema Neurological exam: PRESENT: alert, awake, oriented to person, oriented to place, oriented to time Psychiatric exam: ABSENT: agitated, anxious Results Laboratory Results: WBC 6.1 10^3/uL (4.0-10.5) 10/21/20 04:06 RBC 2.84 10^6/uL (4.35-5.55) L 10/21/20 04:06 Hgb 7.8 g/dL (13.5-17.0) L 10/21/20 04:06 Hct 23.5 % (37.9-51.0) L 10/21/20 04:06 MCV 83 fl (80-97) 10/21/20 04:06 MCH 27.4 pg (27.0-33.4) 10/21/20 04:06 MCHC 33.1 g/dL (32.0-36.0) 10/21/20 04:06 RDW 17.2 % (11.5-14.0) H 10/21/20 04:06 Plt Count 234 10^3/uL (150-450) 10/21/20 04:06 Lymph % (Auto) 16.8 % (13-45) 10/19/20 01:55 [place] % (Auto) 7.4 % (3-13) 10/19/20 01:55 Eos % (Auto) 0.4 % (0-6) 10/19/20 01:55 Baso % (Auto) 0.3 % (0-2) 10/19/20 01:55 Reticulocyte # 0.038 10^6/uL (0.028-0.122) 10/21/20 04:06 Absolute Neuts (auto) 6.9 10^3/uL (1.7-8.2) 10/19/20 01:55 Absolute Lymphs (auto) 1.5 10^3/uL (0.5-4.7) 10/19/20 01:55 Absolute Monos (auto) 0.7 10^3/uL (0.1-1.4) 10/19/20 01:55 Absolute Eos (auto) 0.0 10^3/uL (0.0-0.6) 10/19/20 01:55 Absolute Basos (auto) 0.0 10^3/uL (0.0-0.2) 10/19/20 01:55 Seg Neutrophils % 75.1 % (42-78) 10/19/20 01:55 Retic Count (auto) 1.35 % (0.66-2.85) 10/21/20 04:06 PT 13.6 SEC (11.4-15.4) 10/19/20 01:55 INR 1.02 10/19/20 01:55 D-Dimer 3.60 ug/mL (0.00-0.50) H 10/20/20 04:50 VBG pH 7.43 (7.30-7.42) H 10/19/20 01:55 VBG pCO2 42.4 mmHg (35-63) 10/19/20 01:55 VBG HCO3 27.4 mmol/L (20-32) 10/19/20 01:55 VBG Base Excess 2.8 mmol/L 10/19/20 01:55 Sodium 129.3 mmol/L (137-145) L 10/21/20 04:06 Potassium 5.0 mmol/L (3.6-5.0) D 10/21/20 04:06 Chloride 99 mmol/L (98-107) 10/21/20 04:06 Carbon Dioxide 21 mmol/L (22-30) L 10/21/20 04:06 Anion Gap 9 (5-19) 10/21/20 04:06 BUN 51 mg/dL (7-20) H 10/21/20 04:06 Creatinine 5.35 mg/dL (0.52-1.25) H 10/21/20 04:06 Est GFR ( Amer) 13 (>60) L 10/21/20 04:06 Est GFR (MDRD) Non-Af 11 (>60) L 10/21/20 04:06 Glucose 194 mg/dL (75-110) H 10/21/20 04:06 POC Glucose 237 mg/dL (70-110) H 10/21/20 11:12 Lactic Acid 0.9 mmol/L (0.7-2.1) 10/19/20 08:29 Calcium 8.1 mg/dL (8.4-10.2) L 10/21/20 04:06 Phosphorus 5.1 mg/dL (2.5-4.5) H 10/20/20 04:50 Iron 45.9 ug/dL (49-181) L 10/21/20 04:06 TIBC 171 ug/dL (250-450) L 10/21/20 04:06 % Saturation 27 % 10/21/20 04:06 Ferritin 972.00 ng/mL (17.9-464.0) H 10/21/20 04:06 Total Bilirubin 0.5 mg/dL (0.2-1.3) 10/19/20 01:55 Direct Bilirubin 0.3 mg/dL (0.0-0.4) 10/19/20 01:55 Neonat Total Bilirubin Not Reportable 10/19/20 01:55 Neonat Direct Bilirubin Not Reportable 10/19/20 01:55 Neonat Indirect Bili Not Reportable 10/19/20 01:55 AST 56 U/L (17-59) 10/19/20 01:55 ALT 33 U/L (<50) 10/19/20 01:55 Alkaline Phosphatase 165 U/L (38-126) H 10/19/20 01:55 Creatine Kinase 25 U/L (55-170) L 10/19/20 01:55 Troponin I 0.019 ng/mL 10/19/20 01:55 C-Reactive Protein 187.7 mg/L (<10.0) H 10/20/20 04:50 Total Protein 5.9 g/dL (6.3-8.2) L 10/19/20 01:55 Albumin 2.4 g/dL (3.5-5.0) L 10/20/20 04:50 Vitamin B12 898.0 pg/mL (239-931) 10/21/20 04:06 Folate 5.90 ng/mL (>2.76) 10/21/20 04:06 Urine Color YELLOW 10/19/20 02:25 Urine Appearance CLEAR 10/19/20 02:25 Urine pH 8.0 (5.0-9.0) 10/19/20 02:25 Ur Specific [place] 1.009 10/19/20 02:25 Urine Protein 100 mg/dL (NEGATIVE) H 10/19/20 02:25 Urine Glucose (UA) >=500 mg/dL (NEGATIVE) H 10/19/20 02:25 Urine Ketones NEGATIVE mg/dL (NEGATIVE) 10/19/20 02:25 Urine Blood NEGATIVE (NEGATIVE) 10/19/20 02:25 Urine Nitrite (Reflex) NEGATIVE (NEGATIVE) 10/19/20 02:25 Urine Bilirubin NEGATIVE (NEGATIVE) 10/19/20 02:25 Urine Urobilinogen NEGATIVE mg/dL (<2.0) 10/19/20 02:25 Leukocyte Esterase Rfl NEGATIVE (NEGATIVE) 10/19/20 02:25 Urine RBC (Auto) 0 /HPF 10/19/20 02:25 Urine Bacteria (Auto) TRACE /HPF 10/19/20 02:25 Urine WBC (Reflex) 2 /HPF 10/19/20 02:25 Squamous Epi Cells Auto <1 /HPF 10/19/20 02:25 Urine Ascorbic Acid NEGATIVE (NEGATIVE) 10/19/20 02:25 Influenza A (RT-PCR) NEGATIVE (NEGATIVE) 10/19/20 14:59 Influenza B (RT-PCR) NEGATIVE (NEGATIVE) 10/19/20 14:59 RSV (RT-PCR) NEGATIVE (NEGATIVE) 10/19/20 14:59 SARS-CoV-2 Rap RNA(RT-PCR) POSITIVE (NEGATIVE) 10/19/20 14:59 10/19/20 01:55 Troponin I 0.019 Impressions: Chest X-Ray 10/19/20 02:11 IMPRESSION: No acute cardiopulmonary process copyright 2011 [employer]- All Rights Reserved Plan Time Spent: Greater than 30 Minutes Stroke Is this a Stroke Patient?: No Acute Heart Failure Is this a Heart Failure Patient?: No
[2020-10-21 14:24] VITALS: BP 125/65
== END 2020-10-21 16:02 | disposition home or self-care (01) | DRG 177 ==
LOC: ER 01:45 → EH 10:48 → 3W 10-20 00:22 → 3N 10-20 18:34
PROVIDERS: ADMIT Hospitalist; ATTEND Internal Medicine
PROC: 5A1D70Z Performance of Urinary Filtration, Intermittent, Less than 6 Hours Per Day (ICD-10-PCS; principal; 2020-10-21)
DX: U07.1 COVID-19 (principal); N18.6 End stage renal disease; I12.0 Hypertensive chronic kidney disease with stage 5 chronic kidney disease or end stage renal disease; E11.22 Type 2 diabetes mellitus with diabetic chronic kidney disease; Z99.2 Dependence on renal dialysis; E78.5 Hyperlipidemia, unspecified; M19.90 Unspecified osteoarthritis, unspecified site; Z90.49 Acquired absence of other specified parts of digestive tract; D63.1 Anemia in chronic kidney disease; E11.65 Type 2 diabetes mellitus with hyperglycemia; Z79.4 Long term (current) use of insulin; Z79.899 Other long term (current) drug therapy; F03.90 Unspecified dementia, unspecified severity, without behavioral disturbance, psychotic disturbance, mood disturbance, and anxiety; R13.12 Dysphagia, oropharyngeal phase
CPT/HCPCS: 36415; 71045; 80048; 80053; 80069; 81001; 82550; 82607; 82728; 82746; 82803; 82962; 83540; 83550; 83605; 84484; 85025; 85027; 85045; 85379; 85610; 86140; 87040; 93005; 93010; 99285; 0241U; C9803; J1100; J1644; J1815; J3490; Q5105